=== PATIENT | female | born 1965 | race Caucasian/White ===

== ENCOUNTER 2022-08-10 09:24 | Emergency (ER) | payer OTHER, SELFPAY ==
[2022-08-10 09:33] VITALS: BP 135/89; PULSE 115; RESP 18; TEMP 36.3; O2SAT 95; BMI 38.4
--- NOTE | 2022-08-10 09:44 | CRLHL7_ITS ---
For Patients: As a result of the Century Cures Act, medical imaging exams and procedure reports are released immediately into your electronic medical record. You may view this report before your referring provider. If you have questions, please contact your health care provider. INDICATION: Pain COMPARISON: August 11, 2021 TECHNIQUE: CT examination of the abdomen and pelvis was performed without intravenous contrast. Thin section axial images were obtained from the lung bases through the pubic symphysis. Oral contrast was not administered. Please note that all CT scans at this facility use dose modulation, iterative reconstruction, and/or weight-based dosing when appropriate to reduce radiation dose to as low as reasonably achievable. FINDINGS: LUNG BASES: The lung bases as visualized appear normal.Heart size normal. The lung bases. Small hiatal hernia LIVER/BILIARY SYSTEM:The liver is normal in size and configuration given the lack of intravenous contrast. There is no visible focal mass and there is no intra- or extra hepatic biliary ductal dilatation.The gallbladder surgically absent ADRENALS: Normal non-contrast appearance KIDNEYS, URETERS and BLADDER:The kidneys are normal in size. There are numerous intrarenal calculi in the 1-4 millimeter range. A right upper pole renal cyst is noted measuring 2 centimeters. The pattern of renal calcifications is probably related to medullary sponge kidney. A calculus is noted at the left ureteropelvic junction. This measures 8 millimeters in greatest dimension as measured from number 48. However, there is no upstream dilation. No calcifications within the course either ureter distally or within the bladder. SPLEEN:Normal non-contrast appearance. PANCREAS: Normal non-contrast appearance. RETROPERITONEUM and MESENTERY: There is no mass, adenopathy or aortic aneurysm. GASTROINTESTINAL SYSTEM: There is no evidence of diverticulitis, colitis, mechanical obstruction, or appendicitis. The small bowel as visualized appears normal. PELVIS: No mass, adenopathy or free fluid. OSSEOUS STRUCTURES and ABDOMINAL WALL: Loss of height of the inferior endplate L2. This is new since 2020 but does not appear to be acute. No significant abdominal wall abnormality.No significant abdominal wall defect. OTHER: No free fluid or free air. IMPRESSION: 1. Numerous intrarenal calculi bilaterally. The pattern suggests medullary sponge kidney. Incidental right renal cyst. 2. There is a millimeter calculus at the left ureteropelvic junction. However, there is no upstream dilation. 3. Other incidental nonacute appearing findings as above Please note that all CT scans at this facility use dose modulation, iterative reconstruction, and/or weight-based dosing when appropriate to reduce radiation dose to as low as reasonably achievable. Dictated by Corky Villaseñor MD @ 08/10/2022 10:17:03 AM (Electronically Signed)
--- NOTE | 2022-08-10 09:47 | ED_ITS ---
HPI - General Adult General Time Seen by Provider: 09:48 Date Seen: 08/10/22 Chief complaint: Flank Pain Stated complaint: Blood in urine, suspected kidney stone Time Seen by Provider: 08/10/22 09:42 Source: patient Mode of arrival: ambulatory Limitations: no limitations History of Present Illness HPI narrative: 57-year-old female who presents today with flank pain and hematuria. History of bilateral ureteral stones and stents placed in the past. Has had intermittent hematuria and intermittent low abdominal and flank pain for the last month. Last episode of gross hematuria noted by patient was yesterday morning. Occasional nausea. Not currently having low abdominal or flank pain. Denies fevers or chills. Has not recently taken any medication for her symptoms, has occasionally been taking Advil. Related Data Home Medications Medication Instructions Recorded Confirmed levothyroxine 200 mcg tablet 200 mcg PO DAILY 08/10/22 08/10/22 (Euthyrox) metoprolol succinate 100 mg 100 mg PO DAILY 08/10/22 08/10/22 tablet,extended release 24 hr tizanidine 6 mg capsule 6 mg PRN muscle spasticity 08/10/22 trazodone 100 mg tablet 100 mg BID 08/10/22 Previous Rx's Medication Instructions Recorded cefdinir 300 mg capsule 300 mg PO BID #14 caps 08/10/22 Allergies Allergy/AdvReac Type Severity Reaction Status Date / Time No Known Drug Allergies Allergy Verified 08/10/22 09:38 Review of Systems Status of ROS: Reports: 10 or more systems reviewed and unremarkable except as noted in History and below PFSH PFSH Medical History (Updated 08/10/22 @ 10:38 by Bhanu Lu MD) Hypertension Kidney stone Migraines Pancreatitis Surgical History (Updated 08/10/22 @ 10:21 by Juliette Lockett RN) H/O: hysterectomy History of cholecystectomy Social History Smoking Status: Never smoker How often do you have a drink containing alcohol: 2-3 times a week AUDIT-C Alcohol total score: 3 Non-prescribed substance use: denies use Exam Narrative: Exam Narrative: General: Well-developed and well-nourished, no acute distress Head: Atraumatic and normocephalic Eyes: Pupils are equal reactive, extraocular motions intact, conjunctiva clear ENT: External nose and ears are normal, posterior pharynx without erythema or exudate Neck: No midline cervical tenderness, full spontaneous range of motion the neck, trachea midline, no adenopathy Heart: Tachycardic but regular Lungs: Clear to auscultation bilaterally without wheezes or crackles Abdomen: Soft, nontender, nondistended with active bowel sounds Musculoskeletal: No tenderness, deformity, or edema Neurologic: Awake, alert, and oriented x3, no gross focal neurologic deficits, cranial nerves intact as tested Psych: Mood and affect are appropriate Skin: No rashes Const: Vital Signs, click to edit/add: Vital Signs - 24 hr 08/10/22 09:33 Temperature 97.3 F L Pulse Rate [Right Pulse Oximeter] 115 H Respiratory Rate 18 Blood Pressure [Ri ght Upper Arm] 135/89 Pulse Oximetry 95 Oxygen Delivery Me thod Room Air Course Course Hospital Course: Patient seen and examined, prior records are reviewed. Differential diagnosis includes but not limited to ureteral stone, bladder stone, urinary tract infection, bladder tumor, AVM, renal carcinoma. Patient presents with intermittent flank and low abdominal pain as well as intermittent hematuria for the last month. On exam, patient is tachycardic but no other symptoms. CT scan personally reviewed and interpreted by me demonstrates a proximal ureteral stone on the left. Urinalysis and labs are pending. Toradol and Zofran were ordered but this patient is not currently having pain, will hold these for now. Reevaluation(s) Reevaluation #1: CT scan does demonstrate numerous bilateral intrarenal calculi, along with an 8 mm calculus at the left UPJ without associated dilatation or hydronephrosis. Urinalysis with 5-10 white blood cells, few bacteria. Patient does have some symptoms that could be consistent with urinary tract infection but her sensation of frequency could be from hematuria as well. Given findings on urinalysis, patient will be started on Omnicef for possible urinary tract infection. She is not reporting any flank pain although CT demonstrates a large stone at the UPJ. This may be causing a ball-valve effect given her intermittent pain and intermittent hematuria. She has urologist who she has seen in the past and she should follow up with that group. Otherwise, stable for discharge. Basic panel is reassuring with normal creatinine. On review of result, no CBC was ordered. Patient has had hematuria and has tachycardia today. She does not appear pale and is not having any chest pain, shortness of breath, or lightheadedness concerning for anemia, but add-on hemoglobin is ordered. Will be watched in the emergency department until this is resulted Time: 10:34 Reevaluation #2: Hemoglobin is normal, patient is stable for discharge. Time: 11:11 Vital Signs Vital signs: Initial Vital Signs Temperature 97.3 F L 08/10/22 09:33 Temperature Source Temporal Artery Scan 08/10/22 09:33 Pulse Rate 115 H 08/10/22 09:33 Respiratory Rate 18 08/10/22 09:33 Blood Pressure 135/89 08/10/22 09:33 Blood Pressure Mean 104 08/10/22 09:33 Blood Pressure Position Sitting 08/10/22 09:33 Pulse Oximetry 95 08/10/22 09:33 Oxygen Delivery Method 08/10/22 09:33 Vital Signs Temperature 97.3 F L 08/10/22 09:33 Pulse Rate 115 H 08/10/22 09:33 Respiratory Rate 18 08/10/22 09:33 Blood Pressure 135/89 08/10/22 09:33 Pulse Oximetry 95 08/10/22 09:33 Oxygen Delivery Method 08/10/22 09:33 Temperature 97.3 F L 08/10/22 09:33 Pulse Rate 115 H 08/10/22 09:33 Respiratory Rate 18 08/10/22 09:33 Blood Pressure 135/89 08/10/22 09:33 Pulse Oximetry 95 08/10/22 09:33 Oxygen Delivery Method 08/10/22 09:33 Medical Decision Making Medical Records Medical records reviewed: Yes I reviewed the patient's medical records Lab Data Lab results reviewed: Yes I reviewed the patient's lab results Labs: Lab Results 08/10/22 08/10/22 08/10/22 Range/Units 09:44 09:59 09:59 Hgb 15.2 (12.0-16.0) gm/dL Sodium 138 (135-149) mmol/L Potassium 3.9 (3.6-5.1) mmol/L Chloride 103 (96-114) mmol/L Carbon Dioxide 25 (20-32) mmol/L BUN 18 (7-30) mg/dL Creatinine 0.8 (0.5-1.5) mg/dL Estimated Creat Clear 73.63 Estimated GFR 85 ml/min Glucose 108 (60-115) mg/dL Calcium 9.3 (8.4-10.6) mg/dL C-Reactive Protein < 0.5 L (0.5-1.0) mg/dL Urine Color Yellow (Yellow) Urine Appearance Clear (Clear) Urine pH 6.0 (5.0-8.5) Ur Specific [place] >= 1.030 (1.000-1.030) Urine Protein Trace A (Negative) Urine Glucose (UA) Negative (Negative) Urine Ketones Negative (Negative) Urine Blood Negative (Negative) Urine Nitrite Negative (Negative) Urine Bilirubin Negative (Negative) Urine Urobilinogen 0.2 (0.2-1.0) Ur Leukocyte Esterase Negative (Negative) Urine RBC 0-2 (0-2) Urine WBC 5-10 A (0-5) Ur Squamous Epith Cells Few (None-Few) Amorphous Sediment Few A (None) Urine Bacteria Few A (None) Urine Mucus Moderate A (None) Imaging Data CT scan - abdomen: Attestation: I have reviewed the pertinent imaging results. My impression: Right UPJ stone, bilateral intrarenal calculi Radiologist's impression: 1. Numerous intrarenal calculi bilaterally. The pattern suggests medullary sponge kidney. Incidental right renal cyst. 2. There is a millimeter calculus at the left ureteropelvic junction. However, there is no upstream dilation. 3. Other incidental nonacute appearing findings as above Discharge Plan Discharge Clinical Impression: Urinary tract infection, Bilateral renal stones Condition: Stable Instructions: Kidney Stones (ED), Urinary Tract Infection in Women (DC) Additional Instructions: Continue your usual fluid intake. Call your urologist for follow-up. Take antibiotics as prescribed. Activity Level: No Restrictions Discharge Diet: Regular Prescriptions: New cefdinir 300 mg capsule 300 mg PO BID Qty: 14 0RF No Action metoprolol succinate 100 mg tablet extended release 24 hr 100 mg PO DAILY Label Comments: TAKE 1 TABLET BY MOUTH EVERY DAY tizanidine 6 mg capsule 6 mg PRN (Reason: muscle spasticity) Label Comments: TAKE 1 CAPSULE (6 MG) BY MOUTH EVERY 8 HOURS IF NEEDED FOR MUSCLE SPASM. trazodone 100 mg tablet 100 mg BID Label Comments: TAKE 1 TABLET BY MOUTH TWICE A DAY levothyroxine [Euthyrox] 200 mcg tablet 200 mcg PO DAILY Stand Alone Forms: [facility] Info Instructions
[2022-08-10 10:10] LABS: Appearance Urine Clear (Clear); Bilirubin Urine Negative (Negative); Blood Urine Negative (Negative); Color Urine Yellow (Yellow); Glucose Urine Negative (Negative); Ketones Urine Negative (Negative); Leukocyte Esterase Urine Negative (Negative); Nitrite Urine Negative (Negative); Protein Urine Trace (Negative); Specific Gravity Urine >= 1.030 (1.000-1.030); Urobilinogen Urine 0.2 (0.2-1.0)
[2022-08-10] MEDS: KETOROLAC 15 MG/ML inj IVP (10:11)
[2022-08-10 10:23] LABS: Chloride* 103 mmol/L (96-114)
[2022-08-10 10:24] LABS: Potassium* 3.9 mmol/L (3.6-5.1); Sodium* 138 mmol/L (135-149)
[2022-08-10 10:26] LABS: Creatinine* 0.8 mg/dL (0.5-1.5); Est. Creatinine Clearance* 73.63; Estimated Glomerular Filt Rate 85 ml/min
[2022-08-10 10:27] LABS: Blood Urea Nitrogen* 18 mg/dL (7-30); Carbon Dioxide* 25 mmol/L (20-32); Glucose* 108 mg/dL (60-115)
[2022-08-10 10:28] LABS: Calcium* 9.3 mg/dL (8.4-10.6)
[2022-08-10] MEDS: 0.9 % SODIUM CHLORIDE 1000 ml 1,000 ML IV (10:28)
[2022-08-10] MEDS: ONDANSETRON 2 MG/ML inj 4 MG IVP (10:29)
[2022-08-10 10:30] LABS: C Reactive Protein* < 0.5 mg/dL (0.5-1.0)
[2022-08-10 10:31] LABS: Bacteria Urine Few; RBC Urine 0-2 (0-2); Squamous Epithelial Cell Urine Few (None-Few)
[2022-08-10 10:32] LABS: Amorphous Sediment Urine Few; Mucus Urine Moderate
--- OUTSIDE RECORDS SUMMARY | 2022-08-10 10:53 | XMS_ITS | Encounter Summary ---
:1965 Author Organization [place] Address [address] [place] [address] Care Team Providers Name Role Phone Bhanu Godoy MD Primary Care Provider Bhanu Godoy MD Unavailable Reason for Visit Reason Comments Medication Refill traZODone (DESYREL) 50 MG ta blet Encounter Details Date Type Department Care Team Description 05/31/2019 Refill [facility] Bhanu Godoy MD Medication Refill [place] [id number] [place] [address] (traZODone (DESYREL) 50 [address] [place], [place] MG tablet) [place] [phone] Social History Tobacco Use Types Packs/Day Years Used Date Smoking Tobacco: Never Smokeless Tobacco: Never Alcohol Use Standard Drinks/Week Comments Yes 0 (1 standard drink = 0.6 oz pure alcoho l) not very often Alcohol Habits Answer Date Recorded How often do you have a drink containing alcohol? Monthly or less 12/08/2018 How many drinks containing alcohol do you have on a Not aske d typical day when you are drinking? How often do you have six or more drinks on one Not asked occasion? Sex Assigned at Date Recorded Not on file documented as of this encounter Miscellaneous Notes Telephone Encounter - Reena Remy RN - 05/31/2019 11:24 AM CDT Pending Prescriptions: Disp Refills traZODone (DESYREL) 50 MG tablet [Pharmac*30 tab*1 Sig: TAKE 1 TABLET (50 MG) BY MOUTH AT BEDTIME Prescription approved per [facility] Refill Protocol. Reena Remy, RN, BSN Telephone Encounter - eBl Schuler - 05/31/2019 10:35 AM CDT Requested Prescriptions Pending Prescriptions Disp Refills ??? traZODone (DESYREL) 50 MG tablet [Pharmacy Med Name: TRAZODONE 50 MG TABLET] 30 tablet 1 Sig: TAKE 1 TABLET (50 MG) BY MOUTH AT BEDTIME Last Written Prescription Date: 04/14/19 Last Fill Quantity: 30 tablet, # refills: 1 Last office visit: 02/23/2019 with prescribing provider: Walt Future Office Visit: Serotonin Modulators Passed - 05/31/2019 9:36 AM Passed - Recent (12 mo) or future (30 days) visit within the authorizing provider's specialty Patient had office visit in the last 12 months or has a visit in the next 30 days with authorizing provider or within the authorizing provider's specialty. See Patient Info tab in inbasket, or Choose Columns in Meds & Orders section of the refill encounter. Passed - Medication is active on med list Passed - Patient is age 18 or older Passed - No active on record Passed - No positive test in past 12 months documented in this encounter Plan of Treatment Not on filedocumented as of this encounter Visit Diagnoses Diagnosis Primary insomnia Persistent disorder of initiating or ana ntaining sleep documented in this encounter Additional Health Concerns Assessment Noted Time PHQ-9 Depression Total Score: 15 11/15/2018 3:49 PM CS T documented as of this encounter Care Teams Restoration Silversmith Relationship Specialty Start Date End Date Bhanu Godoy MD PCP - General Family Practice 12/21/18 01/01/20 [address] [place] [address] Bhanu Godoy MD Assigned PCP 10/20/18 02/28/22 [address] [place] [address] documented as of this encounter
--- OUTSIDE RECORDS SUMMARY | 2022-08-10 10:53 | XMS_ITS | Encounter Summary ---
:1965 Author Organization [place] Address [address] [place] [address] Care Team Providers Name Role Phone Bhanu Godoy MD Unavailable Jeremie Perkins DO Primary Care Provider Encounter Details Date Type Department Care Team Description 01/02/2020 Travel Social History Tobacco Use Types Packs/Day Years [...] on file documented as of this encounter Plan of Treatment Not on filedocumented as of this encounter Visit Diagnoses Not on filedocumented in this encounter Additional Health Concerns Assessment Noted Time PHQ-9 Depression Total Score: 15 11/15/2018 3:49 PM CS T documented as of this encounter Care Teams Shower Doors And Panels Fabricator Relationship Specialty Start Date End Date Jeremie Perkins DO PCP - General Family Practice 01/02/20 [facility] [address] [place] [phone] Bhanu Godoy MD Assigned PCP 10/20/18 02/28/22 [address] [place] [address] documented as of this encounter
--- OUTSIDE RECORDS SUMMARY | 2022-08-10 10:53 | XMS_ITS | Encounter Summary ---
:1965 Author Organization [place] Address [address] [place] [address]. 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 documented as of this encounter Last Filed Vital Signs Vital Sign Reading Time Taken Comments Blood Pressure - - Pulse - - Temperature - - Respiratory Rate - - Oxygen Saturation - - Inhaled Oxygen Concentration - - Weight 113.4 kg (250 lb) 01/03/2020 4:14 PM CDT Height 170.2 cm (5' 7) 01/03/2020 4:14 PM CDT Body Mass Index 39.16 01/03/2020 4:14 PM CDT documented in this encounter Plan of Treatment Not on filedocumented as of this encounter Visit Diagnoses Not on filedocumented in this encounter Additional Health Concerns Assessment Noted Time PHQ-9 Depression Total Score: 15 11/15/2018 3:49 PM CS T documented as of this encounter Care Teams Alternative Dispute Resolution Mediator Relationship Specialty Start Date End Date Jeremie Perkins DO PCP - General Family Practice 01/02/20 [facility] [address] [place] [phone] Bhanu Godoy MD Assigned PCP 10/20/18 02/28/22 [address] [place] [address] Adams Dove Assigned Rheumatology 08/16/20 09/07/20 MD Jake Provider [facility] [address] [place] [address] documented as of this encounter
--- OUTSIDE RECORDS SUMMARY | 2022-08-10 10:53 | XMS_ITS | Encounter Summary ---
:1965 Author Organization [place] Address [address] [place] [address]. [place] [address] Care Team Providers Name Role Phone Bhanu Godoy MD Primary Care Provider Bhanu Godoy MD Unavailable Reason for Visit Reason Comments Medication Refill Encounter Details Date Type Department Care Team Description 04/14/[address] [facility] Bhanu Godoy MD Medication Refill [address] [address] [place] [address] [phone] Social History Tobacco Use Types Packs/Day Years [...] this encounter Miscellaneous Notes Telephone Encounter - Priti Teran RN - 04/14/2019 2:57 PM CDT Prescription approved per [facility] [place] Refill Protocol. Telephone Encounter - Antonella Vuong - 04/14/2019 2:21 PM CDT Requested Prescriptions Pending Prescriptions Disp Refills ??? traZODone (DESYREL) 50 MG tablet [Pharmacy Med Name: TRAZODONE 50 MG TABLET] 30 tablet 1 Sig: TAKE 1 TABLET (50 MG) BY MOUTH AT BEDTIME Serotonin Modulators Passed - 04/14/2019 8:35 AM Passed - Recent (12 mo) or [...] documented as of this encounter Care Teams Parking Lot Attendant And Cashier Relationship Specialty Start Date End Date Bhanu Godoy MD PCP - General Family Practice 12/21/18 01/01/20 [address] [place], [place] [id number] Bhanu Godoy MD Assigned PCP 10/20/18 02/28/22 [address] [place], [place] [id number] documented as of this encounter
--- OUTSIDE RECORDS SUMMARY | 2022-08-10 10:53 | XMS_ITS | Encounter Summary ---
:1965 Author Organization [place] Address [address] [place] [address]. [place] [address] Care Team Providers Name Role Phone Bhanu Godoy MD Primary Care Provider Bhanu Godoy MD Unavailable Reason for Visit Reason Onset Date Comments Panel Management 08/29/2019 Pap , Encounter Details Date Type Department Care Team Description 08/29/2019 Telephone [facility] Bhanu Godoy MD Panel Management (Pap , Clinic [address] [phone] Social History Tobacco Use Types Packs/Day Years [...] this encounter Miscellaneous Notes Telephone Encounter - Lilian Mark CMA - 08/30/2019 11:56 AM CST Patient called back and I gave the message below. Patient state that she wont be coming back to see Dr. Godoy anymore so don't call her for Panel. Lilian Mark CMA S MARKER Telephone Encounter - Libby Foreman MA - 08/29/2019 2:44 PM CST Panel Management Review Patient has the following on her problem list: Depression / Dysthymia review Measure: Needs PHQ-9 score of 4 or less during index window. Administer PHQ-9 and if score is 5 or more, send encounter to provider for next steps. 5 - 7 month window range: PHQ-9 SCORE 11/15/2018 PHQ-9 Total Score 15 If PHQ-9 recheck is 5 or more, route to provider for next steps. Patient is due for: PHQ9 Hypertension Last three blood pressure readings: BP Readings from Last 3 Encounters: 02/23/19 (!) 132/92 02/09/19 114/78 12/28/18 126/82 Blood pressure: FAILED HTN Guidelines: Less than 140/90 Composite cancer screening Chart review shows that this patient is due/due soon for the following Pap Smear and Mammogram Summary: Patient is due/failing the following: MAMMOGRAM, PAP and PHQ9 Action needed: Patient needs office visit for Pap., Patient needs to do PHQ9. and Patient needs referral/order: Mammo Type of outreach: Phone, left message for patient to call back. Questions for provider review: None Libby Foreman [facility] Chart routed to Care Team [id number] . S MARKER documented in this encounter Plan of Treatment Not on filedocumented as of this encounter Visit Diagnoses Not on filedocumented in this encounter Additional Health Concerns Assessment Noted Time PHQ-9 Depression Total Score: 15 11/15/2018 3:49 PM CS T documented as of this encounter Care Teams Director Of Ne[facility] Relationship Specialty Start Date End Date Bhanu Godoy MD PCP - General Family Practice 12/21/18 01/01/20 [address] [place] [address] Bhanu Godoy MD Assigned PCP 10/20/18 02/28/22 [address] [place] [address] documented as of this encounter
--- OUTSIDE RECORDS SUMMARY | 2022-08-10 10:53 | XMS_ITS | Encounter Summary ---
:1965 Author Organization [place] Address [address] [place] [address]. [place] [address] Care Team Providers Name Role Phone Bhanu Godoy MD Primary Care Provider Bhanu Godoy MD Unavailable Reason for Visit Reason Comments Medication Refill Encounter Details Date Type Department Care Team Description 05/08/2019 Refill [facility] Bhanu Godoy MD Medication Refill [address] [address] [place] [address] [phone] Social History Tobacco Use Types Packs/Day Years [...] Telephone Encounter - Reena Remy RN - 05/09/2019 7:55 AM CDT Pending Prescriptions: Disp Refills traZODone (DESYREL) 50 MG tablet [Pharmac*30 tab*1 Sig: TAKE 1 TABLET (50 MG) BY MOUTH AT BEDTIME Sent 04/14/2019 with 2 month supply. Refill not appropriate at this time. Reena Remy, RN, BSN documented in this encounter Plan of Treatment Not on filedocumented as of this encounter Visit Diagnoses Diagnosis Primary insomnia Persistent disorder of initiating or ana ntaining sleep documented in this encounter Additional Health Concerns Assessment Noted Time PHQ-9 Depression Total Score: 15 11/15/2018 3:49 PM CS T documented as of this encounter Care Teams Linoleum Layer Relationship Specialty Start Date End Date Bhanu Godoy MD PCP - General Family Practice 12/21/18 01/01/20 [address] [place], [place] [phone] Bhanu Godoy MD Assigned PCP 10/20/18 02/28/22 [address] [place], [place] [id number] documented as of this encounter
--- OUTSIDE RECORDS SUMMARY | 2022-08-10 10:53 | XMS_ITS | Encounter Summary ---
:1965 Author Organization [place] Address [address] [place] [address] Care Team Providers Name Role Phone Bhanu Godoy MD Unavailable Vidal Perkinsrt Madhav PAZ Primary Care Provider Adams Dove MD Unavailable Encounter Details Date Type Department Care Team Description 01/03/2020 Anesthesia - [facility] OR MD Greg [address] [place] [phone] Social History Tobacco Use Types Packs/Day Years [...] with No / Unsure 12/17/2020 11:04 AM MAGNETIZER someone who was confirmed or suspected to have Coronavirus / COVID-19? documented as of this encounter OR Notes Anesthesia Postprocedure Evaluation - Jus Cuevas - 01/03/2020 7:06 PM CDT Patient: Mariia Culver Procedure(s): Cystoscopy, Bilateral Retrograde Pyelogram, Bilateral Ureteroscopy, Bilateral Ureteral Stent Placement (Bilateral) Anesthesia type: general Patient location: PACU Last vitals: Vitals Value Taken Time BP 151/65 01/03/2020 7:00 PM Temp 37.4 ??C (99.3 ??F) 01/03/2020 6:09 PM Pulse 93 01/03/2020 7:01 PM Resp 12 01/03/2020 7:00 PM SpO2 95 % 01/03/2020 7:01 PM Vitals shown include unvalidated device data. Post vital signs: stable Level of consciousness: awake and responds to simple questions Post-anesthesia pain: pain controlled Post-anesthesia nausea and vomiting: no Pulmonary: unassisted, return to baseline Cardiovascular: stable and blood pressure at baseline Hydration: adequate Anesthetic events: no QCDR Measures: ASA# 11 - Sonya-op Cardiac Arrest: ASA11B - Patient did NOT experience unanticipated cardiac arrest ASA# 12 - Sonya-op Mortality Rate: ASA12B - Patient did NOT ASA# 13 - PACU Re-Intubation Rate: ASA13B - Patient did NOT require a new airway mgmt ASA# 10 - Composite Anes Safety: ASA10A - No serious adverse event Additional Notes: Anesthesia Preprocedure Evaluation - Daryl Barnhart MD - 01/03/2020 4:40 PM CDT Anesthesia Evaluation Patient summary reviewed History of anesthetic complications Airway Mallampati: II Neck ROM: full Pulmonary - negative ROS and normal exam Cardiovascular - normal exam Exercise tolerance: > or = 4 METS (+) hypertension, , (-) angina Neuro/Psych Endo/Other (+) hypothyroidism, GI/Hepatic/Renal (-) GERD Other findings: Migraines. H/o cervical fusion (3 levels?). BMI 39. Had cardiac evaluation for what was thought to be non-sustained VT, only found ST. Nephrolithiasis. Dental - normal exam Anesthesia Plan Planned anesthetic: general LMA ASA 3 Induction: intravenous Anesthetic plan and risks discussed with: patient Anesthesia plan special considerations: antiemetics, Post-op plan: routine recovery documented in this encounter Miscellaneous Notes Anesthesia Care Transfer Note - Florentin Ferguson APRN CRNA - 01/03/2020 6:11 PM CDT Last vitals: Vitals: 01/03/20 1809 BP: (!) 168/99 Pulse: (!) 106 Resp: 20 Temp: 37.4 ??C (99.3 ??F) SpO2: 100% Patient's level of consciousness is drowsy Spontaneous respirations: yes Maintains airway independently: yes Dentition unchanged: yes Oropharynx: oropharynx clear of all foreign objects QCDR Measures: ASA# 20 - Surgical Safety Checklist: WHO surgical safety checklist completed prior to induction PQRS# 430 - Adult PONV Prevention: 4558F - Pt received => 2 anti-emetic agents (different classes) preop & intraop ASA# 8 - Peds PONV Prevention: NA - Not pediatric patient, not GA or 2 or more risk factors NOT present PQRS# 424 - Sonya-op Temp Management: 4559F - At least one body temp DOCUMENTED => 35.5C or 95.9F within required timeframe PQRS# 426 - PACU Transfer Protocol:G9655 - Transfer of care checklist used ASA# 14 - Acute Post-op Pain: ASA14B - Patient did NOT experience pain >= 7 out of 10 documented in this encounter Plan of Treatment Not on filedocumented as of this encounter Visit Diagnoses Not on filedocumented in this encounter Additional Health Concerns Assessment Noted Time PHQ-9 Depression Total Score: 15 11/15/2018 3:49 PM CS T documented as of this encounter Care Teams Die Barber Relationship Specialty Start Date End Date Jeremie Perkins DO PCP - General Family Practice 01/02/20 [facility] [address] [place] [phone] Bhanu Godoy MD Assigned PCP 10/20/18 02/28/22 [address] [place] [address] Adams Dove Assigned Rheumatology 08/16/20 09/07/20 MD Jake Provider [facility] [address] [place] [address] documented as of this encounter
--- OUTSIDE RECORDS SUMMARY | 2022-08-10 10:53 | XMS_ITS | Encounter Summary ---
:1965 Author Organization [place] Address [address] [facility] [place] [address] Care Team Providers Name Role Phone Bhanu Godoy MD Primary Care Provider Bhanu Godoy MD Unavailable Reason for Visit Reason Comments Medication Refill venlafaxine 150 MG Encounter Details Date Type Department Care Team Description 05/16/2019 Refill [facility] Bhanu Godoy MD Medication Refill [facility] [id number] [place] [address] (venlafaxine 150 MG) [id number] [place] [phone] Social History Tobacco Use Types Packs/Day Years [...] this encounter Miscellaneous Notes Telephone Encounter - Juliette Phillips Dayanna - 05/16/2019 12:39 PM CDT Medication is being filled for 1 time refill only due to due for an appointment. [employer] message sent. María Phillips, MSN, RN, PHN Telephone Encounter - Elsie Garcia - 05/16/2019 12:28 PM CDT Last Written Prescription Date: 02/23/19 Last Fill Quantity: 30 each, # refills: 1 Last office visit: 02/23/2019 with prescribing provider: Walt Future Office Visit: [facility] Follow-up to PHQ 11/15/2018 PHQ-9 9. Suicide Ideation past 2 weeks Several days Requested Prescriptions Pending Prescriptions Disp Refills ??? venlafaxine (EFFEXOR-ER) 150 MG 24 hr tablet [Pharmacy Med Name: VENLAFAXINE HCL ER 150 MG TAB] 30 tablet 1 Sig: TAKE 1 TABLET BY MOUTH EVERY DAY Serotonin-Norepinephrine Reuptake Inhibitors Failed - 05/16/2019 11:31 AM Failed - Blood pressure under 140/90 in past 12 months BP Readings from Last 3 Encounters: 02/23/19 (!) 132/92 02/09/19 114/78 12/28/18 126/82 Failed - PHQ-9 score of less than 5 in past 6 months Please review last PHQ-9 score. Passed - Medication is active on med list Passed - Patient is age 18 or older Passed - No active on record Passed - Normal serum creatinine on file in past 12 months Recent Labs Lab Test 11/27/18 1551 CR 0.93 Passed - No positive test in past 12 months Passed - Recent (6 mo) or future (30 days) visit within the authorizing provider's specialty Patient had office visit in the last 6 months or has a visit in the next 30 days with authorizing provider or within the authorizing provider's specialty. See Patient Info tab in inbasket, or Choose Columns in Meds & Orders section of the refill encounter. documented in this encounter Plan of Treatment Not on filedocumented as of this encounter Visit Diagnoses Diagnosis Migraine without status migrainosus, not intractable, unspecified migraine type Mild major depression (H) Major depressive disorder, single episod e, mild Anxiety Anxiety state, unspecified documented in this encounter Additional Health Concerns Assessment Noted Time PHQ-9 Depression Total Score: 15 11/15/2018 3:49 PM CS T documented as of this encounter Care Teams [employer] Relationship Specialty Start Date End Date Bhanu Godoy MD PCP - General Family Practice 12/21/18 01/01/20 [id number] [place], [place] [phone] Bhanu Godoy MD Assigned PCP 10/20/18 02/28/22 [address] [place], [place] [phone] documented as of this encounter
--- OUTSIDE RECORDS SUMMARY | 2022-08-10 10:53 | XMS_ITS | Encounter Summary ---
:1965 Author Organization [facility] Address [address] [place] [id number] Care Team Providers Name Role Phone Bhanu Godoy MD Unavailable Jeremie Perkins DO Primary Care Provider Reason for Visit Reason Comments Flank Pain Encounter Details Date Type Department Care Team Description 01/02/2020 Emergency [facility] Tita Rooney ureteral calculi; [facility] Emergency Dep juan f Renae PA-C Renal colic; [address] [facility] Fatty liver; [place], [place] [employer] Renal cyst, right [phone] [phone] [place], [place] [address] (Wo rk) Social History Tobacco Use Types Packs/Day Years [...] on file documented as of this encounter Last Filed Vital Signs Vital Sign Reading Time Taken Comments Blood Pressure 163/122 01/02/2020 9:59 AM CDT Pulse - - Temperature 36.7 ??C (98 ??F) 01/02/2020 9:59 AM CDT Respiratory Rate 18 01/02/2020 9:59 AM CDT Oxygen Saturation 96% 01/02/2020 9:59 AM CDT Inhaled Oxygen Concentration - - Weight - - Height - - Body Mass Index - - documented in this encounter Discharge Instructions Discharge InstructionsTita Dietz PA-C - 01/02/2020 12:15 PM CDT *You may resume diet and activities. Drink plenty of fluids. *Take medications as prescribed. Ibuprofen and/or tylenol for pain. Oxycodone for severe pain not relieved by ibuprofen/tylenol. Flomax. Zofran for nausea. Continue your current medications. *Follow-up with your doctor or urology as directed. *Return if you develop fever, are unable to urinate, cannot keep fluids down, or become worse in anyway. Discharge Instructions Kidney Stones Kidney stones are a common problem that can cause a lot of pain but fortunately are usually not dangerous and can be generally treated with medicine at home. However, sometimes your condition may be worse than it seemed at first, or may get worse with time. You need to follow-up with your regular doctor within 3 days. Most kidney stones will pass on their own, but occasionally stones may need to be removed by an urologist. We will send you home with a urine strainer. Be sure to urinate into this, or urinate into a container and pour the urine through the fine filter to catch the kidney stone as it comes out. The stone will seem like a pebble or grain of sand. Be sure to save this in a zip-lock bag and take it to the doctor???s office with you. Return to the Emergency Department if: Your pain is not controlled. You are vomiting and can???t keep fluids or medications down. You develop fever (>101) You feel much more ill or develop new symptoms What can I do to help myself? Be sure to drink plenty of fluids Staying active is good, and may help the stone to pass. You may do whatever you feel up to doing without restrictions. Treatment: Non-steroidal anti-inflammatory drugs (NSAIDs). This includes prescription medicines like Toradol ??and non-prescription medicines like ibuprofen (Advil??, Nuprin ??). These pain relievers are very effective for kidney stones. Narcotic pain pills. If you have been given a narcotic (such as codeine, hydrocodone, or oxycodone) do not drive for four hours after you have taken it. If the narcotic contains acetaminophen (Tylenol), do not take Tylenol with it. All narcotics will cause constipation, so eat a high fiber diet. Nausea medication. Nausea and vomiting are common with kidney stones, so your physician may send youhome with medicine for this. Flomax (Tamsulosin). This medicine is sometimes used for men with prostate problems, but also can help kidney stones to pass. This medicine can lower blood pressure, and you may feel faint, especially when you first stand up. Be sure to get up gradually, sit down if you feel faint, and avoid activity where feeling faint would be dangerous, such as climbing ladders. Remember that you can always come back to the Emergency Department if you are not able to see your regular doctor in the amount of time listed above, if you get any new symptoms, or if there is anything that worries you. Opioid Medication Information You have been given a prescription for an opioid (narcotic) pain medicine and/or have received a pain medicine while here in the Emergency Department. These medicines can make you drowsy or impaired. You must not drive, operate dangerous equipment, or engage in any other dangerous activities while taking these medications. If you drive while taking these medications, you could be arrested for DUI, ordriving under the influence. Do not drink any alcohol while you are taking these medications. Opioid pain medications can cause addiction. If you have a history of chemical dependency of any type, you are at a higher risk of becoming addicted to pain medications. Only take these prescribed medications to treat your pain when all other options have been tried. Take it for as short a time and asfew doses as possible. Store your pain pills in a secure place, as they are frequently stolen and provide a dangerous opportunity for children or visitors in your house to start abusing these powerful medications. We will not replace any lost or stolen medicine. As soon as your pain is better, you should flush all your remaining medication. Many prescription pain medications contain Tylenol?? (acetaminophen), including Vicodin??, Tylenol #3??, [place]??, Lortab??, and Percocet??. You should not take any extra pills of Tylenol?? if you are using these prescription medications or you can get very sick. Do not ever take more than 4000 mg of acetaminophen in any 24 hour period. All opioids tend to cause constipation. Drink plenty of water and eat foods that have a lot of fiber, such as fruits, vegetables, prune juice, apple juice and high fiber cereal. Take a laxative if you don???t move your bowels at least every other day. Miralax??, Milk of Magnesia, Colace??, or Senna?? can be used to keep you regular. documented in this encounter Medications at Time of Discharge Medication Sig Dispensed Refills Start Date End Date acetaminophen-caffeine Take 2 tablets 0 (EXCEDRIN TENSION HEADACHE) by mouth 500-65 MG TABS kpyrxdv-[id number]-zizgac Take 2 tablets 0 ne (EXCEDRIN MIGRAINE) by mouth every 8 250-250-65 MG per tablet hours as needed DULoxetine (CYMBALTA) 30 MG Take 1 capsule 10 capsule 0 11/2018 capsuleIndications: Mild (30 mg) by mouth major depression (H), daily Until gone Anxiety GABAPENTIN PO Take 600 mg by 0 mouth 3 times daily hydrochlorothiazide TAKE 1 TABLET BY 10 10/05/2018 (HYDRODIURIL) 25 MG tablet MOUTH DAILY NEEDED FOR LEG SWELLING hydrOXYzine (ATARAX) 50 MG Take 50 mg by 0 tablet mouth 3 times daily as needed for itching ibuprofen (ADVIL/MOTRIN) 600 Take 1 tablet 30 tablet 1 12/23 MG tablet (600 mg) by mouth every 6 hours as needed for moderate pain levothyroxine Take 200 mcg by 0 (SYNTHROID/LEVOTHROID) 200 mouth daily MCG tablet meloxicam (MOBIC) 15 MG Take 15 mg by 0 tablet mouth daily metoprolol succinate ER Take 100 mg by 3 10/07/20 18 (TOPROL-XL) 100 MG 24 hr mouth daily tablet oxyCODONE (ROXICODONE) 5 MG Take 1 tablet (5 12 tablet 0 tablet mg) by mouth every 6 hours as needed for pain traZODone (DESYREL) 50 MG TAKE 1 TABLET 30 tablet 1 08/07/2 019 tabletIndications: Primary (50 MG) BY MOUTH insomnia AT BEDTIME venlafaxine (EFFEXOR-ER) 150 TAKE 1 TABLET BY 30 tablet 1 0 07/17/2019 MG 24 hr tabletIndications: MOUTH EVERY DAY Migraine without status migrainosus, not intractable, unspecified migraine type, Mild major depression (H), Anxiety venlafaxine (EFFEXOR-XR) SIG 1 every day 21 capsule 1 2018 37.5 MG 24 hr X 7 days then 2 capsuleIndications: Migraine every day X 7 without status migrainosus, days then switch not intractable, unspecified migraine type, Mild major depression (H), Anxiety VITAMIN D, CHOLECALCIFEROL, Take 2,000 Units 0 PO by mouth daily. zolpidem (AMBIEN) 5 MG Take 1 tablet (5 30 tablet 0 019 tabletIndications: Insomnia, mg) by mouth unspecified type nightly as needed for sleep ondansetron (ZOFRAN ODT) 4 Take 1 tablet (4 10 tablet 0 07/202001/05/2020 MG ODT tab mg) by mouth every 8 hours as needed for nausea tamsulosin (FLOMAX) 0.4 MG Take 1 capsule 10 capsule 0 01/0101/12/2020 capsule (0.4 mg) by mouth daily for 10 doses documented as of this encounter ED Notes Romeo Ferrer RN - 01/02/2020 9:58 AM CDT Pt arrives with R flank/ groin pain since Wed. Pt was seen at [facility] on Wednesday, had UA which was negative for infection. Pt states not getting better so here for re-evaluation. +nausea, no vomiting. Tita Dietz PA-C - 01/02/2020 9:53 AM CDT History Chief Complaint: Flank Pain HPI Alphonso Culver is a 54 year old female with a history of nephrolithiasis, pancreatitis, hypertension, among others who presents for evaluation of right flank pain, associated with dysuria, hematuria,and urinary urgency, that began 6 days ago. The patient states about 6 days ago she began having right flank pain, which radiated into her back and groin. She also endorses dysuria, hematuria, and urinary urgency, prompting her presentation to [facility], where she was told she did not have an infection and believed her symptoms could be due to kidney stones. They recommended following up with her primary to order a CT, who did not want to order a CT and subsequently prompted her presentation for further evaluation. Here, the patient states she has a history of kidney stones and knows she has more in her kidneys. She also endorses a low-grade fever and nausea. She denies any other symptoms prompting her presentation. Allergies: No known drug allergies Medications: Duloxetine Gabapentin Hydrochlorothiazide Atarax Levothyroxine Mobic Trazodone Metoprolol succinate Venlafaxine Vitamin D Ambien Past Medical History: Anxiety Hypertension Hypothyroidism Migraine Depression Morbid obesity Narcotic withdrawal Nephrolithiasis Pancreatitis Shoulder impingement syndrome Past Surgical History: Cholecystectomy Hysterectomy Cervical spine fusion Family History: Father - CAD, lung fibrosis, cerebrovascular disease, Pacemaker Sister - Pacemaker, diabetes Brother - Diabetes Social History: The patient was unaccompanied to the ED. Smoking Status: Never Smokeless Tobacco: Never Alcohol Use: Yes Drug Use: No Marital Status: Review of Systems Constitutional: Positive for fever (low-grade). Gastrointestinal: Positive for nausea. Genitourinary: Positive for dysuria, flank pain, hematuria and urgency. Musculoskeletal: Positive for back pain. All other systems reviewed and are negative. Physical Exam Patient Vitals for the past 24 hrs: BP Temp Temp src Heart Rate Resp SpO2 01/02/20 0959 (!) 163/122 98 ??F (36.7 ??C) Temporal 128 18 96 % Physical Exam General: Alert, interactive. GCS 15 Head: Scalp is atraumatic. Eyes: EOM intact. The pupils are equal, round, and reactive to light. No scleral icterus. ENT: Ears: The external ears are normal. Nose: The external nose is normal. Throat: The oropharynx is normal. Mucus membranes are moist. Neck: Normal range of motion. There is no rigidity. CV: Regular rate and rhythm. No murmur. 2+ radial pulses Resp: Breath sounds are clear bilaterally. Non-labored, no retractions or accessory muscle use. GI: Abdomen is soft, no distension, no tenderness. Right CVA tenderness. MS: Normal range of motion. Skin: Warm and dry. Neuro: Strength and sensation grossly intact. Psych: Awake. Alert. Appropriate interactions. Emergency Department Course Imaging: Radiology findings were communicated with the patient who voiced understanding of the findings. Abd/pelvis CT no contrast - Stone Protocol IMPRESSION: 1. Bilateral UVJ stones each measuring 0.3 cm. No significant associated hydronephrosis or hydroureter. Numerous additional nonobstructing right and left renal collecting system stones are noted. 2. Fatty infiltration of liver and cholecystectomy changes. Probable right renal cortical cysts unchanged dating back to prior MRI from 06/21/2013. No further follow-up required. Reading per radiology. Laboratory: Laboratory findings were communicated with the patient who voiced understanding of the findings. CBC: AWNL (WBC 6.0, HGB 14.9, PLT 340) BMP: Glucose 161 (H) o/w WNL (Creatinine 0.75) Routine UA with Microscopic: Urine blood Trace (A), WBC/HPF 6 (H), Mucous urine Present (A) o/w WNL Urine Culture: Pending Interventions: 1002 Advil 600 mg PO 1128 0.9% NaCl bolus 1000 mL IV 1128 Dilaudid 0.5 mg IV 1129 Zofran 4 mg IV Emergency Department Course: Past medical records, nursing notes, and vitals reviewed. The patient was sent for a Abd/pelvis CT no contrast - Stone Protocol while in the emergency department, results above. IV was inserted and blood was drawn for laboratory testing, results above. (1116) I performed an exam of the patient as documented above. History obtained from patient. (1209) I rechecked the patient and discussed results and plan of care. She reports her pain is improving. Findings and plan explained to the Patient. Patient discharged home with instructions regarding supportive care, medications, and reasons to return. The importance of close follow-up was reviewed. The patient was prescribed Zofran, Advil, Roxicodone, and Flomax. I personally reviewed the laboratory and imaging results with the Patient and answered all related questions prior to discharge. Impression & Plan Medical Decision Making: The patient presented with right sided flan pain and abdominal pain consistent with renal colic. CT reveals bilateral 3mm UVJ stones. Pain is controlled with interventions in the Emergency Department. There is no fever, leukocytosis, or evidence of a urinary tract infection. Urine culture pending. No BRIANNA. Patient be discharged with ibuprofen and oxycodone to use for breakthrough pain. Side effects ofnarcotic medications were discussed including sedation and addictive properties. Flomax will be prescribed daily to attempt to ease stone passage. Zofran for nausea. Other etiologies for these symptomssuch as AAA, pyelonephritis, muscular strain, appendicitis, amongst others are considered and have been excluded. The patient was told to return if if increasing pain not controlled with pain meds, vomiting, fever, or inability to urinate. Follow up with urology closely given bilateral stone. Plan to call today to schedule follow-up. Patient agrees with this plan and understands reasons to return. All questions and concerns addressed prior to discharge home. Diagnosis: ICD-10-CM 1. Bilateral ureteral calculi N20.1 3mm 2. Renal colic N23 3. Fatty liver K76.0 4. Renal cyst, right N28.1 unchanged, no further workup indicated Disposition: Discharged to home. Discharge Medications: Medication List Started ibuprofen 600 MG tablet Commonly known as: ADVIL/MOTRIN 600 mg, Oral, EVERY 6 HOURS PRN ondansetron 4 MG ODT tab Commonly known as: Zofran ODT 4 mg, Oral, EVERY 8 HOURS PRN oxyCODONE 5 MG tablet Commonly known as: ROXICODONE 5 mg, Oral, EVERY 6 HOURS PRN tamsulosin 0.4 MG capsule Commonly known as: Flomax 0.4 mg, Oral, DAILY Scribe Disclosure: Rudy Perez, am serving as a scribe at 11:13 AM on 01/02/2020 to document services personally performed by Tita Dietz PA-C based on my observations and the provider's statements to me. 01/02/2020 [facility] EMERGENCY DEPARTMENT Tita Dietz PA-C 01/02/20 9977 documented in this encounter Miscellaneous Notes Result Encounter Note - Clinton Trimble RN - 01/02/2020 12:37 PM CDT Emergency Dept/Urgent Care discharge antibiotic (if prescribed): None No changes in treatment per Urine culture protocol. Result Encounter Note - Clinton Trimble RN - 01/02/2020 12:37 PM CDT Final urine culture report is NEGATIVE per [facility] Lab Result protocol. If NEGATIVE result, no change in treatment, per [facility] ED Lab Result protocol. documented in this encounter Plan of Treatment Not on filedocumented as of this encounter Procedures Procedure Name Priority Date/Time Associated Comments Diagnosis CT ABDOMEN PELVIS W/O STAT 01/02/2020 11:55 Re sults for this CONTRAST AM CDT procedure are i n the results section. CBC WITH PLATELETS & STAT 01/02/2020 10:24 Res ults for this DIFFERENTIAL AM CDT procedure are i n the results section. BASIC METABOLIC PANEL STAT 01/02/2020 10:24 Re sults for this AM CDT procedure are i n the results section. ROUTINE UA WITH STAT 01/02/2020 10:08 Results for this MICROSCOPIC AM CDT procedure are i n the results section. URINE CULTURE Routine 01/02/2020 10:08 Bilateral ureteral Resu lts for this AM CDT calculi procedure are i n the results section. documented in this encounter Results Abd/pelvis CT no contrast - Stone Protocol (01/02/2020 11:55 AM CDT) Anatomical Region Laterality Modality Abdomen/Pelvis, SUBRAD CT BODY, UMP CT ABDOMEN PELVIS, Computed Tomography RAD CT Specimen (Source) Anatomical Location Collection Method / Collectio n Time Received Time / Laterality Volume Impressions 01/02/2020 12:08 PM CDT IMPRESSION: 1. Bilateral UVJ stones each measuring 0 .3 cm. No significant associated hydronephrosis or hydroureter . Numerous additional nonobstructing right and left renal farhan ecting system stones are noted. 2. Fatty infiltration of liver and becka cystectomy changes. Probable right renal cortical cysts unchanged chance ing back to prior MRI from 06/21/2013. No further follow-up required . AZRA JACOB MD Narrative 01/02/2020 12:[address] ABDOMEN AND PELVIS WITHOUT CONTRAST 01/02/2020 11:55 AM HISTORY: Flank pain, recurrent stone dis ease suspected - right. COMPARISON: CT abdomen and pelvis 11/27/19. TECHNIQUE: Axial images are obtained fro m the lung bases to the symphysis without oral or IV contrast. ? ?Coronal reformatted images are also generated. ??Radiation dose for thi s scan was reduced using automated exposure control, adjustment o f the mA and/or kV according to patient size, or iterative reconstruc tion technique. FINDINGS: ??Scattered groundglass nodula rity is noted at the lung bases probably an infectious or inflammatory p rocess. This represents a change from the prior CT. No pleural flu id is evident. Abdomen: There is diffuse fatty infiltra tion of liver and cholecystectomy changes. The spleen, andersen creas and adrenal glands are unremarkable. No enlarged lymph nodes. A nathalia is normal in caliber with minimal scattered calcified plaque. The kidneys bilaterally demonstrate numerous small nonobstructin g stones. No hydronephrosis. Distal right ureteral stone near the UVJ on image 189 of series 4 measures 0.3 cm. A left UVJ stone is als o noted on image 193 measuring 0.3 cm. Probable right renal cortical cy sts incompletely imaged on this noncontrast exam. Pelvis: The bladder is unremarkable. No intraluminal bladder calculi or wall thickening. No enlarged pelvic l ymph nodes or free fluid. Rectum is unremarkable. Uterus is not id entified. Bone window examination is unremarkable. Procedure Note Azra Jacob MD - 01/02/2020Form atting of this note might be different from the original. CT ABDOMEN AND PELVIS WITHOUT CONTRAST 11:55 AM HISTORY: Flank pain, recurrent stone dis ease suspected - right. COMPARISON: CT abdomen and pelvis 11/27/19. TECHNIQUE: Axial images are obtained fro m the lung bases to the symphysis without oral or IV contrast. C oronal reformatted images are also generated. Radiation dose for this scan was reduced using automated exposure control, adjustment o f the mA and/or kV according to patient size, or iterative reconstruc tion technique. FINDINGS: Scattered groundglass nodulari ty is noted at the lung bases probably an infectious or inflammatory p rocess. This represents a change from the prior CT. No pleural flu id is evident. Abdomen: There is diffuse fatty infiltra tion of liver and cholecystectomy changes. The spleen, andersen creas and adrenal glands are unremarkable. No enlarged lymph nodes. A nathalia is normal in caliber with minimal scattered calcified plaque. The kidneys bilaterally demonstrate numerous small nonobstructin g stones. No hydronephrosis. Distal right ureteral stone near the UVJ on image 189 of series 4 measures 0.3 cm. A left UVJ stone is als o noted on image 193 measuring 0.3 cm. Probable right renal cortical cy sts incompletely imaged on this noncontrast exam. Pelvis: The bladder is unremarkable. No intraluminal bladder calculi or wall thickening. No enlarged pelvic l ymph nodes or free fluid. Rectum is unremarkable. Uterus is not id entified. Bone window examination is unremarkable. IMPRESSION: 1. Bilateral UVJ stones each measuring 0 .3 cm. No significant associated hydronephrosis or hydroureter . Numerous additional nonobstructing right and left renal farhan ecting system stones are noted. 2. Fatty infiltration of liver and becka cystectomy changes. Probable right renal cortical cysts unchanged chance ing back to prior MRI from 06/21/2013. No further follow-up required . AZRA JACOB MD Tita Rooney PA-C IMG CT ORDERABLES (ABNORMAL) Basic metabolic panel (01/02/2020 10:24 AM T) athologist Signature Sodium 137 133 - 144 01/02/2020 [place] mmol/L 10:48 AM [facility] Potassium 3.8 3.4 - 5.3 01/02/2020 [place] mmol/L 10:48 AM [facility] Chloride 106 94 - 109 01/02/2020 [place] mmol/L 10:48 AM [facility] Carbon Dioxide 25 20 - 32 01/02/2020 [place] mmol/L 11:01 AM [facility] Anion Gap 6 3 - 14 01/02/2020 [place] mmol/L 11:01 AM [facility] Glucose 161 (H) 70 - 99 01/02/2020 [place] mg/dL 11:01 AM [facility] Urea Nitrogen 14 7 - 30 01/02/2020 [place] mg/dL 11:01 AM [facility] Creatinine 0.75 0.52 - 01/02/2020 [facility] 1.04 mg/dL 11:01 AM [facility] GFR Estimate 89 >60 01/02/2020 [place] mL/min/{1. 11:01 AM [facility] 73_m2} HOSPITAL Comment: Non GFR Calc Starting 10/11/2018, serum creatinine ba sed estimated GFR (eGFR) will be calculated using the Chronic Kidney Dise [facility] Epidemiology Collaboration (CKD-EPI) equation. GFR Estimate If >90 >60 mL/min/{1.73_m2} 01/02/2020 11 :01 AM [facility] Comment: GFR Calc Starting 10/11/2018, serum creatinine ba sed estimated GFR (eGFR) will be calculated using the Chronic Kidney Dise [facility] Epidemiology Collaboration (CKD-EPI) equation. Calcium 9.1 8.5 - 10.1 mg/dL 01/02/2020 11:01 AM [facility] Specimen Anatomical Collection Method Collection Time Receive d Time (Source) Location / / Volume Laterality Blood specimen 01/02/2020 10:24 0 (specimen) AM CDT 10:28 AM CDT Tita Rooney PA-C LAB - BLOOD ORDERABLES Performing Organization Address City/State/ZIP Code Phon e Number [place] [address] [address] [place] [address] [phone] CBC with platelets differential (01/02/2020 10:24 AM CDT) [facility] Method Time Signature WBC 6.0 4.0 - 01/02/2020 [place] 11.0 10:34 AM [facility] 10e9/L [facility] RBC Count 4.65 3.8 - 5.2 01/02/2020 [place] 10e12/L 10:34 AM [facility] Hemoglobin 14.9 11.7 - 01/02/[address] [facility] 15.7 g/dL 10:34 AM [facility] Hematocrit 45.0 35.0 - 01/02/2020 [place] 47.0 % 10:34 AM [facility] MCV 97 78 - 100 01/02/2020 [place] fl 10:34 AM [facility] MCH 32.0 26.5 - 01/02/2020 [facility] 33.0 pg 10:34 AM [facility] MCHC 33.1 31.5 - 01/02/2020 [facility] 36.5 g/dL 10:34 AM [facility] RDW 13.2 10.0 - 01/02/2020 [facility] 15.0 % 10:34 AM [facility] Platelet Count 340 150 - 450 01/02/2020 [facility] 10e9/L 10:34 AM [facility] Diff Method Automated 01/02/2020 [facility] Method 10:34 AM [facility] % Neutrophils 42.3 % 01/02/2020 [facility] 10:34 AM [facility] % Lymphocytes 37.4 % 01/02/2020 [facility] 10:34 AM [facility] % Monocytes 9.7 % 01/02/2020 [facility] 10:34 AM [facility] % Eosinophils 8.7 % 01/02/2020 [facility] 10:34 AM [facility] % Basophils 1.7 % 01/02/2020 [facility] 10:34 AM [facility] % Immature 0.2 % 01/02/2020 [facility] Granulocytes 10:34 AM [facility] Nucleated RBCs 0 0 /100 01/02/2020 [facility] 10:34 AM [facility] Absolute 2.5 1.6 - 8.3 01/02/2020 [facility] Neutrophil 10e9/L 10:34 AM [facility] Absolute 2.2 0.8 - 5.3 01/02/2020 [facility] Lymphocytes 10e9/L 10:34 AM [facility] Absolute 0.6 0.0 - 1.3 01/02/2020 [facility] Monocytes 10e9/L 10:34 AM [facility] Absolute 0.5 0.0 - 0.7 01/02/2020 [facility] Eosinophils 10e9/L 10:34 AM [facility] Absolute 0.1 0.0 - 0.2 01/02/2020 [facility] Basophils 10e9/L 10:34 AM [facility] Abs Immature 0.0 0 - 0.4 01/02/2020 [facility] Granulocytes 10e9/L 10:34 AM [facility] Absolute 0.0 01/02/2020 [facility] Nucleated RBC 10:34 AM [facility] Specimen Anatomical Collection Method Collection Time Receive d Time (Source) Location / / Volume Laterality Blood specimen 01/02/2020 10:24 0 (specimen) AM CDT 10:28 AM CDT Tita Rooney PA-C LAB - BLOOD ORDERABLES Performing Organization Address City/[facility]/[place]IP [facility] [place] [address] [address] [place], [place] [address] [facility] [address] [phone] Urine Culture (01/02/2020 10:08 AM CDT) Component Value Ref Test Analysis Performed At [facility] Range Method Time Signature Specimen Midstream Urine INFECTIOUS Description [facility] Special Specimen received 01/02/2020 INFECTIOUS Requests in preservative 1:00 PM CDT [facility] Culture Micro <10,000 colonies/mL 01/03/2020 INFEC TIOUS mixed urogenital kacey 12:28 PM DISEASE S Susceptibility testing not routinely done CDT DIAGNOSTIC LABORATORY Specimen (Source) Anatomical Collection Method Collection Time Re ceived Time Location / / Volume Laterality Examination of 01/02/2020 10:08 0 midstream urine AM CDT 11:24 AM CDT specimen (procedure) Tita Rooney PA-C LAB - MICRO GENERAL ORDERAB LES Performing Organization Address City/[facility]/[place]IP [facility] [place] INFECTIOUS DISEASES [address] [place] [address] DIAGNOSTIC LABORATORY, [facility] INFECTIOUS DISEASES [address] [place] [address], [place] DIAGNOSTIC LABORATORY (ABNORMAL) Routine UA with microscopic (01/02/2020 10:08 AM CDT) [facility] Method Time Signature Color Urine Yellow 01/02/2020 [facility] 10:46 AM [facility] Appearance Urine Clear 01/02/2020 [facility] 10:46 AM [facility] Glucose Urine Negative NEG^Negat 01/02/2020 [facility] brandie mg/dL 10:46 AM [facility] Bilirubin Urine Negative NEG^Negat 01/02/2020 [facility] brandie 10:46 AM [facility] Ketones Urine Negative NEG^Negat 01/02/2020 [facility] brandie mg/dL 10:46 AM [facility] Specific [place] 1.021 1.003 - 01/02/2020 [facility] Urine 1.035 10:46 AM [facility] Blood Urine Trace (A) NEG^Negat 01/02/2020 [facility] brandie 10:46 AM [facility] pH Urine 5.5 5.0 - 7.0 01/02/2020 [facility] pH 10:46 AM [facility] Protein Albumin Negative NEG^Negat 01/02/2020 [facility] Urine brandie mg/dL 10:46 AM [facility] Urobilinogen Normal 0.0 - 2.0 01/02/2020 [facility] mg/dL mg/dL 10:46 AM [facility] Nitrite Urine Negative NEG^Negat 01/02/2020 [facility] brandie 10:46 AM [facility] Leukocyte Negative NEG^Negat 01/02/2020 [facility] Esterase Urine brandie 10:46 AM [facility] Source Midstream 01/02/2020 [facility] Urine 10:08 AM [facility] WBC Urine 6 (H) 0 - 5 01/02/2020 [facility] /HPF 10:46 AM [facility] RBC Urine 1 0 - 2 01/02/2020 [facility] /HPF 10:46 AM [facility] Mucous Urine Present (A) NEG^Negat 01/02/2020 [facility] brandie /LPF 10:46 AM [facility] Specimen (Source) Anatomical Collection Method Collection Time Re ceived Time Location / / Volume Laterality Examination of 01/02/2020 10:08 0 midstream urine AM CDT 10:17 AM T specimen (procedure) Tita Rooney PA-C LAB - URINE ORDERABLES Performing Organization Address City/State/ZIP Code Phon e Number [place] [address] [place] [address] [facility] [address] [place] [address] [phone] documented in this encounter Visit Diagnoses Diagnosis Bilateral ureteral calculi Renal colic Fatty liver Other chronic nonalcoholic liver disease Renal cyst, 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 Administer each 2mg over 2-5 minutes. ibuprofen (ADVIL/MOTRIN) tablet 600 mg Given 01/02/2020 10:02 AM CDT 600 mg 600 mg, Oral, ONCE, On 01/02/20 at 1001, For 1 dose, If adequate dose of acetaminophen (TYLENOL) taken within the last 3 hours and patient still in pain ondansetron (ZOFRAN) injection 4 mg Given 01/02/2020 11:29 AM CDT 4 mg 4 mg, Intravenous, ONCE, Administer over 2-5 Minutes, On 01/02/20 at 1123, For 1 dose, Irritant. For ordered IV doses 0.1-4 mg, give IV Push undiluted over 2-5 minutes. documented in this encounter Active and Recently Administered Medications Due to Daylight Saving Time, this section may contain times in both GM and CDT. Scheduled Medication Order 12/31/2019 01/01/2020 01/02/2020 0.9% sodium chloride BOLUS (COMPLETED) 1128 (New Bag - Provider: Aida Lim RN)1223 (Stopped - Provider: Aida Lim RN) Intravenous, 1,000 mL, ONCE, at 1,000 mL /hr, Administer over 1 Hours, 01/02/20 at 1123, For 1 dose HYDROmorphone (PF) (DILAUDID) injection 0.5 mg (COMPLETED) 1128 (Given - Provider: Aida Lim RN) 0.5 mg, Intravenous, ONCE, 1 dose, Tue at 1123, For ordered IV doses 0.1-4 mg give IV Push undiluted. Administer each 2mg over 2-5 minutes. ibuprofen (ADVIL/MOTRIN) tablet 600 mg (COMPLETED) 1002 (Given - Provider: Romeo Ferrer RN) 600 mg, Oral, ONCE, 01/02/20 at 1001, For 1 dose, If adequate dose of acetaminophen (TYLENOL) taken within the last 3 hours and patient still in pain ondansetron (ZOFRAN) injection 4 mg (COMPLETED) 1129 (Given - Provider: Aida Lim RN) 4 mg, Intravenous, ONCE, Administer over 2-5 Minutes, 01/02/20 at 1123, For 1 dose, Irritant. For ordered IV doses 0.1-4 mg, give IV Push undiluted over 2-5 minutes. documented in this encounter Additional Health Concerns Assessment Noted Time PHQ-9 Depression Total Score: 15 11/15/2018 3:49 PM CS T documented as of this encounter Care Teams Aesthetician Relationship Specialty Start Date End Date Jeremie Perkins DO PCP - General Family Practice 01/02/20 [facility] [address] [place] [id number] Bhanu Godoy MD Assigned PCP 10/20/18 02/28/22 [address] [place], [place] [id number] documented as of this encounter
--- OUTSIDE RECORDS SUMMARY | 2022-08-10 10:53 | XMS_ITS | Encounter Summary ---
:1965 Author Organization [place] Address [address] [place] [address] Care Team Providers Name Role Phone Bhanu Godoy MD Primary Care Provider Bhanu Godoy MD Unavailable Reason for Visit Reason Onset Date Comments Medication Refill venlafaxine (EFFEXOR -ER) 150 MG 24 hr tablet Refill Request 08/30/2019 Encounter Details Date Type Department Care Team Description 07/16/2019 Refill [facility] Bhanu Godoy MD Medication Refill [place] [id number] [place] [address] (venlafaxine [address] [place], [place] (EFFEXOR-ER) 150 MG [address] [place] [address] hr tablet); Refill [id number] Request [phone] Social History Tobacco Use Types Packs/Day Years [...] this encounter Miscellaneous Notes Telephone Encounter - Hayley Beckman RN - 07/19/2019 8:08 AM CDT Appointment letter sent Hyaley Beckman RN, BSN Message handled by Nurse Triage. Telephone Encounter - Bhanu Godoy MD - 07/17/2019 4:06 PM CDT Sent Needs visit August Bhanu Godoy MD Telephone Encounter - Deisy Montalvo RN - 07/17/2019 3:53 PM CDT Routing refill request to provider for review/approval because: PHQ-9 score not less than 5 in past 6 months Deisy Monatlvo RN Telephone Encounter - Dana Connolly - 07/16/2019 10:34 AM CDT Requested Prescriptions Pending Prescriptions Disp Refills ??? venlafaxine (EFFEXOR-ER) 150 MG 24 hr tablet [Pharmacy Med Name: VENLAFAXINE HCL ER 150 MG TAB] 30 tablet 1 Sig: TAKE 1 TABLET BY MOUTH EVERY DAY Serotonin-Norepinephrine Reuptake Inhibitors Failed - 07/16/2019 8:32 AM Failed - Blood pressure under 140/90 [...] & Orders section of the refill encounter. Last Written Prescription Date: 05/16/2019 Last Fill Quantity: 30, # refills: 1 Last office visit: 02/23/2019 with prescribing provider: Dr Godoy Future Office Visit: documented in this encounter Plan of Treatment [...] documented as of this encounter Care Teams Imcu Specialist Relationship Specialty Start Date End Date Bhanu Godoy MD PCP - General Family Practice 12/21/18 01/01/20 [address] [place], [place] [id number] Bhanu Godoy MD Assigned PCP 10/20/18 02/28/22 [address] [place], [place] [id number] documented as of this encounter
--- OUTSIDE RECORDS SUMMARY | 2022-08-10 10:53 | XMS_ITS | Encounter Summary ---
:1965 Author Organization [facility] Address [address] [place] [address]. [place] [address] Care Team Providers Name Role Phone Cedric Godoy MD Unavailable Jeremie Perkins DO Primary Care Provider Reason for Visit Reason Comments Chest Pain Encounter Details Date Type Department Care Team Description 12/17/2020 Emergency [facility] Ghislaine Osorio MD Left-sided chest pain; [facility] Emergency Dep t [facility] Grief reaction [address] [place], [place] [address] [facility] [id number] [place], [place] [id number] [phone] (Wo rk) Social History Tobacco Use Types [...] with No / Unsure 12/17/2020 11:04 AM EVENT MANAGEMENT CONSULTANT someone who was confirmed or suspected to have Coronavirus / COVID-19? documented as of this encounter Last Filed Vital Signs Vital Sign Reading Time Taken Comments Blood Pressure 117/55 12/17/2020 12:00 PM EVENT MANAGEMENT CONSULTANT Pulse 107 12/17/2020 12:00 PM EVENT MANAGEMENT CONSULTANT Temperature 36.4 ??C (97.6 ??F) 12/17/2020 11:07 AM EVENT MANAGEMENT CONSULTANT Respiratory Rate 16 12/17/2020 11:07 AM EVENT MANAGEMENT CONSULTANT Oxygen Saturation 95% 12/17/2020 12:00 PM EVENT MANAGEMENT CONSULTANT Inhaled Oxygen Concentration - - Weight - - Height - - Body Mass Index - - documented in this encounter Discharge Instructions Discharge InstructionsGhislaine Osorio MD - 12/17/2020 6:19 PM CST Talk with cardiology about the testing that was previously ordered and never completed. They may want you to do that test or consider a stress test. Cough and chest pain can be related to acid reflux so consider daily antacid like omeprazole (available over the counter). Talk with your primary care provider about ongoing questions with your cough, etc. Return immediately with chest pain that does not resolve, worsening or change in current pain, shortness of breath, fever, or ANY OTHER new or concerning symptoms. Call the customer service number on the back of your insurance card and they can help arrange resources for anxiety and depression. T MANAGEMENT CONSULTANT AttachmentsThe following attachments cannot be sent through Care Everywhere. Chest Pain, Uncertain Cause (Haitian)Grief and Loss (Haitian)documented in this encounter Medications at Time of Discharge Medication Sig Dispensed Refills Start Date End Date acetaminophen-caffeine Take 2 tablets by 0 (EXCEDRIN TENSION HEADACHE) mouth 500-65 MG TABS xtmngmx-drthaxzgludyc-rfwbleb Take 2 tablets by 0 e (EXCEDRIN MIGRAINE) mouth every 8 250-250-65 MG per tablet hours as needed DULoxetine (CYMBALTA) 30 MG Take 1 capsule 10 capsule 0 11/2018 capsuleIndications: Mild (30 mg) by mouth major depression (H), Anxiety daily Until gone GABAPENTIN PO Take 600 mg by 0 [...] traZODone (DESYREL) 50 MG TAKE 1 TABLET (50 30 tablet 1 04/2019 tabletIndications: Primary MG) BY MOUTH AT insomnia BEDTIME venlafaxine (EFFEXOR-ER) 150 TAKE 1 TABLET BY 30 tablet 1 0 07/17/2019 MG 24 hr tabletIndications: MOUTH EVERY DAY Migraine without status migrainosus, not intractable, unspecified migraine type, Mild major depression (H), Anxiety venlafaxine (EFFEXOR-XR) 37.5 SIG 1 every day X 21 capsule 1 02/23/2019 MG 24 hr capsuleIndications: 7 days then 2 Migraine without status every day X 7 migrainosus, not intractable, days then switch unspecified migraine type, Mild major depression (H), Anxiety VITAMIN D, CHOLECALCIFEROL, Take 2,000 Units 0 PO by mouth daily. zolpidem (AMBIEN) 5 MG Take 1 tablet (5 30 tablet 0 019 tabletIndications: Insomnia, mg) by mouth unspecified type nightly as needed for sleep documented as of this encounter ED Notes Korina Villalobos - 12/17/2020 11:19 AM CST Applied monitoring devices (EKG, BP, and pulse ox) onto Patient. Ciarra Cade RN - 12/17/2020 11:06 AM CST Pt here for L sided chest pain that radiates to her back since 1000. No meds taken at home. Reports nausea but no vomiting. A+OX4, no acute signs of distress. T MANAGEMENT CONSULTANT Ghislaine Osorio MD - 12/17/2020 11:03 AM CST History Chief Complaint: Chest Pain The history is provided by the patient. Alphonso Culver is a 55 year old female with history of hypertension who presents with chest pain. She awoke this morning feeling well. She ate breakfast and let out her dog and then around 0930 (two hours prior to arrival) she sat down on her couch and began experiencing chest pain. This is on the left side of her chest and radiates towards her left shoulder and back. She describes her pain as 9-10/10 in intensity. The pain is sharp and worsens with deep breath or movement. She has associated nausea without vomiting. She feels somewhat lightheaded, too. She denies jaw pain, shortness of breath, fever, or diaphoresis. She has a chronic cough which she remarks seems to be more productive in the last 2 days. She took no analgesics prior to arrival. She denies recent travel or surgery. Of note, Alphonso does report recent stress and anxiety related to the COVID pandemic as well as the loss of her sister last year. She requests resources to help her through this tough time. Review of Systems Constitutional: Negative for diaphoresis and fever. Respiratory: Positive for cough (chronic). Negative for shortness of breath. Cardiovascular: Positive for chest pain. Gastrointestinal: Positive for nausea. Negative for vomiting. Musculoskeletal: Positive for back pain. Neurological: Positive for light-headedness. Psychiatric/Behavioral: The patient is nervous/anxious. All other systems reviewed and are negative. Allergies: The patient has no known allergies. Medications: Gabapentin Hydrochlorothiazide Levothyroxine Meloxicam Metoprolol succinate Past Medical History: Ankle impingement syndrome Anxiety Chronic abdominal pain Hypertension Hypothyroidism Migraines Mild major depression Morbid obesity Narcotic withdrawal Nephrolithiasis Pancreatitis Shoulder impingement syndrome Syncope GERD Degeneration of cervical intervertebral disc Angina pectoris Past Surgical History: Cholecystectomy Hysterectomy UGI endoscopy w EUS Cervical spine fusion Cervical diskectomy Cystoscopy, right ureteral stent placement Family History: Coronary artery disease Lung fibrosis Cerebrovascular disease Pacemaker Leukemia Diabetes Sister - idiopathic cardiomyopathy, June 2020 Social History: Unaccompanied to ED. Never smoker. Physical Exam Patient Vitals for the past 24 hrs: BP Temp Temp src Pulse Resp SpO2 12/17/20 1200 117/55 -- -- 107 -- 95 % 12/17/20 1150 124/65 -- -- 90 -- 95 % 12/17/20 1145 113/60 -- -- 97 -- 93 % 12/17/20 1115 (!) 131/91 -- -- -- -- -- 12/17/20 1107 (!) 148/100 97.6 ??F (36.4 ??C) Temporal 106 16 99 % Physical Exam General: Well-developed and well-nourished. Well appearing middle aged womam. Cooperative. Head: Atraumatic. Eyes: Conjunctivae, lids, and sclerae are normal. Neck: Supple. Normal range of motion. CV: Regular rate and rhythm. Normal heart sounds with no murmurs, rubs, or gallops detected. Resp: No respiratory distress. Clear to auscultation bilaterally without decreased breath sounds, wheezing, rales, or rhonchi. GI: Soft. Non-distended. Non-tender. MS: Normal ROM. No bilateral lower extremity edema. Skin: Warm. Non-diaphoretic. No pallor. Neuro: Awake. A&Ox3. Normal strength. Psych: Anxious mood and affect. Normal speech. Vitals reviewed. Emergency Department Course EKG Indication: Chest Pain Time: 1113 Rate 95 bpm. MT interval 138. QRS duration 78. QT/QTc 388/487. Normal sinus rhythm Prolonged QT No acute ST changes. No significant change as compared to prior, dated 12/28/18. Imaging: XR Chest 2 Views Since July 21, 2013, heart size is normal. No pleural effusion, pneumothorax, or abnormal area of consolidation. CEDRIC LEE MD Reading per radiology Laboratory: CBC: WBC 7.5, HGB 14.0, PLT 279 BMP: AWNL (Creatinine 0.71) Troponin (Collected 1337): <0.015 Troponin (Collected 1117): <0.015 D Dimer (Collected 1117): 0.5 Lipase: 36 (L) Hepatic panel: Protein total 6.7 (L) o/w WNL Emergency Department Course: Reviewed: I reviewed nursing notes, vitals, past medical history, and Care Everywhere Assessments: 1114 I obtained history and examined the patient as noted above. Interventions: 1134 Aspirin 324 mg PO 1135 Nitrostat 0.4 mg Sublingual 1156 Nitrostat 0.4 mg Sublingual 1210 Tylenol 975 mg PO 1252 Pepcid 20 mg IV 1252 GI Cocktail 30 mL PO 1252 Toradol 15 mg IV Disposition: The patient was discharged home. HEART Score Background Calculates the overall risk of adverse event in patient's presenting with chest pain. Based on 5 criteria (each assigned 0-2 points) including suspiciousness of history, EKG, age, risk factors and troponin. Data 55 year old female Migraine headache; Chronic abdominal pain; Syncope; Hypertension, unspecified type; Hx of pancreatitis; Mild major depression (H); Morbid obesity (H); Anxiety; and Nephrolithiasis reports that she has never smoked. She has never used smokeless tobacco. family history includes C.A.D. in her father; Cardiomyopathy in her sister; Cerebrovascular Disease in her father; Diabetes in her brother, brother, brother, and sister; Pacemaker (age of onset: 45) inher sister; Pacemaker (age of onset: 75) in her father; Respiratory in her father. Lab Results Component Value Date TROPI <0.015 12/17/2020 Criteria 0-2 points for each of 5 items (maximum of 10 points): Score 0- History slightly suspicious for coronary syndrome Score 0- EKG Normal Score 1- Age 45 to 65 years old Score 1- One to 2 risk factors for atherosclerotic disease Score 0- Within normal limits for troponin levels Interpretation Risk of adverse outcome Heart Score: 2 Total Score 0-3- Adverse Outcome Risk 2.5% - Supports early discharge with appropriate follow-up Impression & Plan Medical Decision Making: Alphonso is a 55-year-old woman who presents with left-sided chest pain radiating towards her left shoulder exacerbated by deep inspiration and by movement. She denies any other complaints aside from slight increase in productivity of her chronic cough over the last couple of days. On exam, she appears well without any focal findings. Her EKG is reassuring without acute ST changes or arrhythmias. It should be noted that QT of 388 today is similar to a QT of 384 in December 2018. No further work-up for this is indicated. Initial troponin is negative. A repeat troponin after 2 hours, 4 hours after onset of pain, remains undetectable. This makes ACS highly unlikely. Basic laboratory studies are noncontributory including negative lipase given her history of pancreatitis with odd presentations per her report. She has no reproducible abdominal tenderness to warrant abdominal imaging. Chest x-ray reveals nopneumonia, pneumothorax, or pleural effusion. D-dimer is negative essentially ruling out pulmonary embolism. An aortic pathology is considered unlikely with a negative D-dimer and a normal, narrow mediastinum on chest x-ray. We tried nitroglycerin for her pain with the initial tablets decreasing from 9/10-7/10 although the subsequent tablet provided no relief. This speaks against coronary artery disease as etiology for herpain. She was given aspirin, Tylenol, Toradol, GI cocktail, and Pepcid. On repeat evaluation she states she is feeling somewhat improved. I have some suspicion this may be GERD as she describes a chronic cough. I encouraged her to try [id number] daily omeprazole. Further, she requests resources for stress and anxiety in dealing with the recent of her sister and the COVID pandemic and we discussed possible somatic manifestation of her stress and anxiety. I referred her to her insurance company to help find appropriate resources for this. She denies current suicidal ideation. She does have a HEART score of 2 and has seen a oil spreader operator in the past. She did not like that provider and wants to see a new oil spreader operator. She told me that she had some tests ordered that she never had completed. As such, instead of ordering a stress test today, I will refer her to cardiology to discuss exactlywhat testing was ordered in the past, what she currently requires, and if that includes stress testing. I also encouraged her to contact her primary care provider to help coordinate follow up, ensure she has appropriate mental health resource, and to discuss her ER visit. She understands to return immediately with worsening or changing chest pain or development of any new symptoms. All questions answered. Amenable to discharge. Diagnosis: ICD-10-CM 1. Left-sided chest pain R07.9 2. Grief reaction F43.21 Discharge Medications: Discharge Medication List as of 12/17/2020 2:57 PM Scribe Disclosure: Juliette Perez, am serving as a scribe at 11:12 AM on 12/17/2020 to document services personally performed by Ghislaine Osorio MD based on my observations and the provider's statements to me. Ghislaine Osorio MD 12/18/20 1629 T MANAGEMENT CONSULTANT documented in this encounter Plan of Treatment Not on filedocumented as of this encounter Procedures Procedure Name Priority Date/Time Associated Comments Diagnosis TROPONIN I STAT 12/17/2020 1:37 PM Results f or this EVENT MANAGEMENT CONSULTANT procedure are i n the results section. XR CHEST 2 VIEWS STAT 12/17/2020 12:40 Results for this PM EVENT MANAGEMENT CONSULTANT procedure are i n the results section. CBC WITH PLATELETS & STAT 12/17/2020 11:17 Res ults for this DIFFERENTIAL AM EVENT MANAGEMENT CONSULTANT procedure are i n the results section. TROPONIN I STAT 12/17/2020 11:17 Results for this AM EVENT MANAGEMENT CONSULTANT procedure are i n the results section. LIPASE Routine 12/17/2020 11:17 Results for this AM EVENT MANAGEMENT CONSULTANT procedure are i n the results section. HEPATIC FUNCTION Routine 12/17/2020 11:17 Results for this PANEL AM EVENT MANAGEMENT CONSULTANT procedure are i n the results section. D DIMER QUANTITATIVE Routine 12/17/2020 11:17 Res ults for this AM EVENT MANAGEMENT CONSULTANT procedure are i n the results section. BASIC METABOLIC PANEL STAT 12/17/2020 11:17 Re sults for this AM EVENT MANAGEMENT CONSULTANT procedure are i n the results section. EKG 12-LEAD, TRACING STAT 12/17/2020 11:13 Res ults for this ONLY AM EVENT MANAGEMENT CONSULTANT procedure are i n the results section. documented in this encounter Results Troponin I (now) (12/17/2020 1:37 PM EVENT MANAGEMENT CONSULTANT) P athologist Signature Troponin I ES <0.015 0.000 - 12/17/2020 [facility] 0.045 ug/L 2:08 PM [facility] Comment: The 99th percentile for upper reference range is 0.045 ug/L. ??Troponin values in the range of 0.045 - 0.120 ug/L may b e associated with risks of adverse clinical events. Specimen Anatomical Collection Method Collection Time Receive d Time (Source) Location / / Volume Laterality Blood specimen 12/17/2020 1:37 PM 021 1:43 (specimen) EVENT MANAGEMENT CONSULTANT PM EVENT MANAGEMENT CONSULTANT Authorizing Provider Result Tanisha Osorio MD LAB - BLOOD ORDERABLES Performing Organization Address City/State/ZIP Code Phon e Number M [facility] [address] [facility] [place], [place] [address] [facility] [address] [place] [place], [place] [address] [facility] [phone] XR Chest 2 Views (12/17/2020 12:40 PM EVENT MANAGEMENT CONSULTANT) Anatomical Region Laterality Modality Chest Digital Radiography Specimen (Source) Anatomical Location Collection Method / Collectio n Time Received Time / Laterality Volume Impressions 12/17/2020 1:04 PM EVENT MANAGEMENT CONSULTANT IMPRESSION: Since July 21, 2013, heart size is normal. No pleural effusion, pneumothorax, or abnormal area of consolidation. CEDRIC LEE MD Narrative 12/17/2020 1:04 PM EVENT MANAGEMENT CONSULTANT CHEST TWO VIEWS December 17, 2020 12:40 PM HISTORY: 55-year-old woman with left-molina ed chest pain. Procedure Note Cedric Lee MD - 12/17/2020 CHEST TWO VIEWS December 17, 2020 12:40 PM HISTORY: 55-year-old woman with left-molina ed chest pain. IMPRESSION: Since July 21, 2013, he art size is normal. No pleural effusion, pneumothorax, or abnormal area of consolidation. CEDRIC LEE MD Ghislaine Osorio MD IMG DIAGNOSTIC IMAGING ORDER EMILEE (ABNORMAL) Lipase (12/17/2020 11:17 AM EVENT MANAGEMENT CONSULTANT) P athologist Signature Lipase 36 (L) 73 - 393 12/17/2020 [place] U/L 11:56 AM EVENT MANAGEMENT CONSULTANT [facility] Specimen Anatomical Collection Method Collection Time Receive d Time (Source) Location / / Volume Laterality 12/17/2020 11:17 12/17/2020 AM EVENT MANAGEMENT CONSULTANT 11:26 AM EVENT MANAGEMENT CONSULTANT Authorizing Provider Result Tanisha Osorio MD LAB - BLOOD ORDERABLES Performing Organization Address City/State/ZIP Code Phon e Number M [facility] [address] [address] [place] [address] [place] [address], [place] [phone] D dimer quantitative (12/17/2020 11:17 AM EVENT MANAGEMENT CONSULTANT) P athologist Signature D Dimer 0.5 0.0 - 0.50 12/17/2020 [facility] ug/ml FEU 11:45 AM [facility] Comment: This D-dimer assay is intended for use i n conjunction with a clinical pretest probability assessment model to exclude pulmonary embolism (PE) and deep venous thrombosis (DVT) in outpatients s uspected of PE or DVT. The cut-off value is 0.5 ug/mL FEU. Specimen Anatomical Collection Method Collection Time Receive d Time (Source) Location / / Volume Laterality 12/17/2020 11:17 12/17/2020 AM EVENT MANAGEMENT CONSULTANT 11:26 AM EVENT MANAGEMENT CONSULTANT Ghislaine Osorio MD LAB - BLOOD ORDERABLES Performing Organization Address City/State/ZIP Code Phon e Number M [place] [address] [address] [place], [place] [address] [phone] [facility] [address] [phone] (ABNORMAL) Hepatic panel (12/17/2020 11:17 AM [facility]) Analysis Performed At Patho logist Time Signature Bilirubin Direct 0.1 0.0 - 0.2 12/17/2020 [place] mg/dL 11:56 AM [facility] Bilirubin Total 0.5 0.2 - 1.3 12/17/2020 [place] mg/dL 11:56 AM [facility] Albumin 3.5 3.4 - 5.0 12/17/2020 [place] g/dL 11:56 AM [facility] Protein Total 6.7 (L) 6.8 - 8.8 12/17/2020 [place] g/dL 11:56 AM [facility] Alkaline 95 40 - 150 12/17/2020 [place] Phosphatase U/L 11:56 AM [facility] ALT 48 0 - 50 U/L 12/17/2020 [place] 11:56 AM [facility] AST 28 0 - 45 U/L 12/17/2020 [facility] 11:56 AM [facility] Specimen Anatomical Collection Method Collection Time Receive d Time (Source) Location / / Volume Laterality 12/17/2020 11:17 12/17/2020 AM EVENT MANAGEMENT CONSULTANT 11:26 AM EVENT MANAGEMENT CONSULTANT Ghislaine Osorio MD LAB - BLOOD ORDERABLES Performing Organization Address City/State/ZIP Code Phon e Number M [facility] [address] [address] [facility] [address] [address], [place] [phone] Basic metabolic panel (BMP) (12/17/2020 11:17 AM EVENT MANAGEMENT CONSULTANT) athologist Signature Sodium 141 133 - 144 12/17/2020 [place] mmol/L 11:47 AM [facility] Potassium 3.4 3.4 - 5.3 12/17/2020 [place] mmol/L 11:47 AM [facility] Chloride 109 94 - 109 12/17/2020 [place] mmol/L 11:47 AM [facility] Carbon Dioxide 26 20 - 32 12/17/2020 [place] mmol/L 11:55 AM [facility] Anion Gap 6 3 - 14 12/17/2020 [place] mmol/L 11:55 AM [facility] Glucose 95 70 - 99 12/17/2020 [place] mg/dL 11:55 AM [facility] Urea Nitrogen 17 7 - 30 12/17/2020 [place] mg/dL 11:55 AM [facility] Creatinine 0.71 0.52 - 12/17/2020 [facility] 1.04 mg/dL 11:55 AM [facility] GFR Estimate >90 >60 12/17/2020 [place] mL/min/{1. 11:55 AM [facility] 73_m2} HOSPITAL Comment: Non GFR Calc Starting 10/11/2018, serum creatinine ba sed estimated GFR (eGFR) will be calculated using the Chronic Kidney Dise ase Epidemiology Collaboration (CKD-EPI) equation. GFR Estimate If >90 >60 mL/min/{1.73_m2} 12/17/2020 11 :55 AM [facility] Comment: GFR Calc Starting 10/11/2018, serum creatinine ba sed estimated GFR (eGFR) will be calculated using the Chronic Kidney Dise ase Epidemiology Collaboration (CKD-EPI) equation. Calcium 8.7 8.5 - 10.1 mg/dL 12/17/2020 11:55 AM [facility] Specimen Anatomical Collection Method Collection Time Receive d Time (Source) Location / / Volume Laterality Blood specimen 12/17/2020 11:17 (specimen) AM EVENT MANAGEMENT CONSULTANT 11:26 AM EVENT MANAGEMENT CONSULTANT Ghislaine Osorio MD LAB - BLOOD ORDERABLES Performing Organization Address City/State/ZIP Code Phon e Number M [facility] [address] [place], [place] [address] [facility] [address] [phone] CBC + differential (12/17/2020 11:17 AM EVENT MANAGEMENT CONSULTANT) [facility] gist Method Time Signature WBC 7.5 4.0 - 12/17/2020 [facility] 11.0 11:33 AM [facility] 10e9/L [facility] RBC Count 4.30 3.8 - 5.2 12/17/2020 [facility] 10e12/L 11:33 AM [facility] Hemoglobin 14.0 11.7 - 12/17/2020 [facility] 15.7 g/dL 11:33 AM [facility] Hematocrit 42.0 35.0 - 12/17/2020 [facility] 47.0 % 11:33 AM [facility] MCV 98 78 - 100 12/17/2020 [facility] fl 11:33 AM [facility] MCH 32.6 26.5 - 12/17/2020 [facility] 33.0 pg 11:33 AM [facility] MCHC 33.3 31.5 - 12/17/2020 [facility] 36.5 g/dL 11:33 AM [facility] RDW 13.2 10.0 - 12/17/2020 [facility] 15.0 % 11:33 AM [facility] Platelet Count 279 150 - 450 12/17/2020 [facility] 10e9/L 11:33 AM [facility] Diff Method Automated 12/17/2020 [facility] Method 11:33 AM [facility]NAG[facility] % Neutrophils 44.6 % 12/17/2020 [facility] 11:33 AM [facility] % Lymphocytes 37.5 % 12/17/2020 [facility] 11:33 AM [facility] % Monocytes 10.2 % 12/17/2020 [facility] 11:33 AM [facility] % Eosinophils 6.1 % 12/17/2020 [facility] 11:33 AM [facility] % Basophils 1.3 % 12/17/2020 [facility] 11:33 AM [facility] % Immature 0.3 % 12/17/2020 [facility] Granulocytes 11:33 AM [facility] Nucleated RBCs 0 0 /100 12/17/2020 [facility] 11:33 AM [facility] Absolute 3.4 1.6 - 8.3 12/17/2020 [facility] Neutrophil 10e9/L 11:33 AM [facility] Absolute 2.8 0.8 - 5.3 12/17/2020 [facility] Lymphocytes 10e9/L 11:33 AM [facility] Absolute 0.8 0.0 - 1.3 12/17/2020 [facility] Monocytes 10e9/L 11:33 AM [facility] Absolute 0.5 0.0 - 0.7 12/17/2020 [facility] Eosinophils 10e9/L 11:33 AM [facility] Absolute 0.1 0.0 - 0.2 12/17/2020 [facility] Basophils 10e9/L 11:33 AM [facility] Abs Immature 0.0 0 - 0.4 12/17/2020 [facility] Granulocytes 10e9/L 11:33 AM [facility] Absolute 0.0 12/17/2020 [facility] Nucleated RBC 11:33 AM [facility] Specimen Anatomical Collection Method Collection Time Receive d Time (Source) Location / / Volume Laterality Blood specimen 12/17/2020 11:17 1 (specimen) AM EVENT MANAGEMENT CONSULTANT 11:26 AM EVENT MANAGEMENT CONSULTANT Ghislaine Osorio MD LAB - BLOOD ORDERABLES Performing Organization Address City/State/ZIP Code Phon e Number M [facility] [address] [address] [facility] [address] [phone] Troponin I (now) (12/17/2020 11:17 AM EVENT MANAGEMENT CONSULTANT) P athologist Signature Troponin I ES <0.015 0.000 - 12/17/2020 [place] 0.045 ug/L 11:59 AM [facility] Comment: The 99th percentile for upper reference range is 0.045 ug/L. ??Troponin values in the range of 0.045 - 0.120 ug/L may b e associated with risks of adverse clinical events. Specimen Anatomical Collection Method Collection Time Receive d Time (Source) Location / / Volume Laterality Blood specimen 12/17/2020 11:17 1 (specimen) AM EVENT MANAGEMENT CONSULTANT 11:26 AM EVENT MANAGEMENT CONSULTANT Ghislaine Osorio MD LAB - BLOOD ORDERABLES Performing Organization Address City/State/ZIP [facility] [address] [address] [place] [address] [facility] [address] [phone] EKG 12-lead, tracing only (12/17/2020 11:13 AM EVENT MANAGEMENT CONSULTANT) Patholo gist Method Time Signature Interpretation ECG Click View RADIOLOGY Image link RESULTS to view waveform and result Specimen (Source) Anatomical Collection Method Collection Time Re ceived Time Location / / Volume Laterality 12/17/2020 11:13 AM EVENT MANAGEMENT CONSULTANT Ghislaine Osorio MD ECG ORDERABLES Performing Organization Address City/State/ZIP [facility] [place] Phon [place] Number RADIOLOGY RESULTS documented in this encounter Visit Diagnoses Diagnosis Left-sided chest pain Grief reaction Adjustment disorder with depressed mood documented in this encounter Administered Medications Inactive Administered Medications - up to 3 most recent administrations Medication Order MAR Action Action Date Dose Rate Site acetaminophen (TYLENOL) tablet Given 12/17/2020 12:10 PM EVENT MANAGEMENT CONSULTANT 975 mg 975 mg 975 mg, Oral, ONCE, On Wed12/17/20 at 1210, For 1 dose, If none in prior 4 hours Maximum acetaminophen dose from all sources = 75 mg/kg/day not to exceed 4 grams/day. aspirin (ASA) chewable tablet 324 mg Given 12/17/2020 11:34 AM EVENT MANAGEMENT CONSULTANT 324 mg 324 mg, Oral, ONCE, On Wed12/17/20 at 1125, For 1 dose famotidine (PEPCID) injection 20 mg Given 12/17/2020 12:52 PM EVENT MANAGEMENT CONSULTANT 20 mg 20 mg, Intravenous, Administer over 2 Minutes, ONCE, On Wed12/17/20 at 1225, For 1 dose, For ordered IV doses 1-20 mg, give IV Push diluted with 5-10ml NS over a minimum of 2 minutes. ketorolac (TORADOL) injection 15 mg Given 12/17/2020 12:52 PM EVENT MANAGEMENT CONSULTANT 15 mg 15 mg, Intravenous, ONCE, Administer over 2 Minutes, On Wed12/17/20 at 1225, For 1 dose, Can cause pain on injection. If ordered intravenously (IV) : administer through a running maintenance fluid over 1 minute followed by a flush. If patient complains of pain on injection, may dilute 15-30 mg in 5 mL and push over 1 to 2 minutes. lidocaine (XYLOCAINE) 2 % 15 mL, alum & mag Given 11/26 12:52 PM EVENT MANAGEMENT CONSULTANT 30 mLs hydroxide-simethicone (MAALOX) 15 mL GI Cocktail 30 mL, Oral, ONCE, On Wed12/17/20 at 1225, For 1 dose nitroGLYcerin (NITROSTAT) sublingual tablet Given 11/26 11:56 AM EVENT MANAGEMENT CONSULTANT 0.4 mg 0.4 mg 0.4 mg, Sublingual, EVERY 5 MIN PRN, chest pain, Starting on Wed12/17/20 at 1123, For 3 doses Given 12/17/2020 11:35 AM EVENT MANAGEMENT CONSULTANT 0.4 mg documented in this encounter Active and Recently Administered Medications Times are shown in EVENT MANAGEMENT CONSULTANT. Scheduled Medication Order 12/15/2020 12/16/2020 12/17/2020 acetaminophen (TYLENOL) tablet 975 mg (COMPLETED) 1210 (Given - Provider: Marybel Escobar RN) 975 mg, Oral, ONCE, Wed12/17/20 at 1210, For 1 dose, If none in prior 4 hours Maximum acetaminophen dose from all sources = 75 mg/kg/day not to exceed 4 grams/day. aspirin (ASA) chewable tablet 324 mg (COMPLETED) 1134 (Given - Provider: Marybel Escobar RN) 324 mg, Oral, ONCE, Wed12/17/20 at 1125, For 1 dose famotidine (PEPCID) injection 20 mg (COMPLETED) 1252 (Given - Provider: Rick Durán RN) 20 mg, Intravenous, Administer over 2 Mi nutes, ONCE, 12/17/20 at 1225, For 1 dose, For ordered IV doses 1-20 mg, give IV Push diluted with 5-10ml NS over a minimum of 2 minutes. ketorolac (TORADOL) injection 15 mg (COMPLETED) 1252 (Given - Provider: Rick Durán RN) 15 mg, Intravenous, ONCE, Administer ove r 2 Minutes, 12/17/20 at 1225, For 1 dose, Can cause pain on injection. If ordered intravenously (IV) : administer through a running maintenance fluid over 1 m inute followed by a flush. If patient co mplains of pain on injection, may dilute 15-30 mg in 5 mL and push over 1 to 2 minutes. lidocaine (XYLOCAINE) 2 % 15 mL, alum & mag hydroxide-simethicone (MAALOX) 15 mL GI Cocktail (COMPLETED) 1252 (Given - Pr ovider: Rick Durán RN) 30 mL, Oral, ONCE, 12/17/20 at 1225, For 1 dose PRN Medication Order 12/15/2020 12/16/2020 12/17/2020 nitroGLYcerin (NITROSTAT) sublingual tablet 0.4 mg 1135 (Given - Provider: Marybel Escobar, RN)1156 (Given - Provider: Marybel Escobar RN) 0.4 mg, Sublingual, EVERY 5 MIN PRN, mariya st pain, Starting e 12/17/20 at 1123, For 3 doses documented in this encounter Additional Health Concerns Assessment Noted Time PHQ-9 Depression Total Score: 15 11/15/2018 3:49 PM CS T documented as of this encounter Care Teams Employment Evaluator/Case Manager Relationship Specialty Start Date End Date Jeremie Perkins DO PCP - General Family Practice 01/02/20 [facility] [address] [place] [phone] Cedric Godoy MD Assigned PCP 10/20/18 02/28/22 [address] [place] [address] documented as of this encounter
--- OUTSIDE RECORDS SUMMARY | 2022-08-10 10:53 | XMS_ITS | Encounter Summary ---
:1965 Author Organization [facility] Address [address] [place] [address]. [place] [address] Care Team Providers Name Role Phone Bhanu Godoy MD Primary Care Provider Bhanu Godoy MD Unavailable Reason for Visit Reason Onset Date Comments Panel Management 10/02/2019 Encounter Details Date Type Department Care Team Description 10/02/2019 Telephone [facility] Bhanu Godoy MD Panel Management [address] [phone] Social History Tobacco Use Types Packs/Day Years [...] this encounter Miscellaneous Notes Telephone Encounter - Libby Foreman MA - 10/02/2019 5:27 PM CST Summary: Patient is due/failing the following: COLONOSCOPY, MAMMOGRAM and PAP Reviewed: [x] CARE EVERYWHERE [x] LAST OV NOTE INCLUDING ENDO [x] FYI TAB [] MYCHART ACTIVE? [x] LAST PANEL ENCOUNTER [x] FUTURE APPTS [x] IMMUNIZATIONS Action needed: Patient needs referral/order: PAP, Mammo and Colonoscopy Type of outreach: Phone, left message for patient to call back. Libby CONDE ON SEED CULLER documented in this encounter Plan of Treatment Not on filedocumented as of this encounter Visit Diagnoses Not on filedocumented in this encounter Additional Health Concerns Assessment Noted Time PHQ-9 Depression Total Score: 15 11/15/2018 3:49 PM CS T documented as of this encounter Care Teams Lead Mechanical Engineer Relationship Specialty Start Date End Date Bhanu Godoy MD PCP - General Family Practice 12/21/18 01/01/20 [address] [place], [place] [id number] Bhanu Godoy MD Assigned PCP 10/20/18 02/28/22 [address] [place], [place] [phone] documented as of this encounter
--- OUTSIDE RECORDS SUMMARY | 2022-08-10 10:53 | XMS_ITS | Encounter Summary ---
:1965 Author Organization [facility] Address [address] [place] [address] Care Team Providers Name Role Phone Bhanu Godoy MD Unavailable Jeremie Perkins DO Primary Care Provider Encounter Details Date Type Department Care Team Description 01/03/2020 Hospital Encounter [facility]. Leonidas Echevarria MD Ureteral stone [facility] [address] [place] [address] [phone] [place], [place] [phone] Social History Tobacco Use Types Packs/Day Years [...] 4:14 PM CDT documented in this encounter Medications at Time of Discharge Medication Sig Dispensed Refills Start Date End Date acetaminophen-caffeine Take 2 tablets 0 (EXCEDRIN TENSION HEADACHE) by mouth 500-65 MG TABS gheocpc-uddoxmvrpvofz-eafiwx Take 2 tablets 0 ne (EXCEDRIN MIGRAINE) [...] MG TAKE 1 TABLET 30 tablet 1 019 tabletIndications: Primary (50 MG) BY MOUTH [...] 10 doses documented as of this encounter H&P Notes Arturo Echevarria MD - 01/03/2020 5:01 PM CDT [facility] Consultation - GENERAL History of Present Illness: This is a 54 y.o. female here for bilateral ureteral stone management. She is a previous patient of Dr. Cutler with h/o kidney/ureteral stones. Previously managed by URS. Pt notes that her stones were in renal parenchyma. Last , she started noting some suprapubic pain along with back pain. Unable to get in with her PCP, she went to urgent care over the weekend and was ultimately seen in theED and diagnosed with bilateral ureteral stones. Pt was referred to Dr. Reis who recommended bilateral URS/stent placement. Discussed with patient and procedure. Pt denies hematuria, dysuria, fevers. Admits to possible chills. OSH imaging reviewed to show very small bilateral stones. Pertinent Labs: Lab Results: personally reviewed UA, CBC, BMP reviewed from ED visit yesterday. All wnl except UA shows blood, neg nitrite. No leukocytosis, no BRIANNA. Past Medical History: Diagnosis Date ??? Angina pectoris (H) ??? Hypertension ??? Pancreatitis ??? Syncope and collapse Past Surgical History: Procedure Laterality Date ??? CHOLECYSTECTOMY ??? CYSTOSCOPY W/ LASER LITHOTRIPSY Right 05/17/2018 Procedure: CYSTOSCOPY RIGHT URETEROSCOPY WITH HOLMIUM LASER STANDBY RIGHT URETERAL STONE EXTRACTIONRIGHT STENT PLACEMENT; Surgeon: Grabiel Johnson MD; Location: [facility] OR; Service: ??? HYSTERECTOMY ??? NECK SURGERY History reviewed. No pertinent family history. Social History Socioeconomic History ??? Marital status: Spouse name: Not on file ??? Number of children: Not on file ??? Years of education: Not on file ??? Highest education level: Not on file Occupational History ??? Not on file Social Needs ??? Financial resource strain: Not on file ??? Food insecurity Worry: Not on file Inability: Not on file ??? Transportation needs Medical: Not on file Non-medical: Not on file Tobacco Use ??? Smoking status: Never Smoker ??? Smokeless tobacco: Never Used Substance and Sexual Activity ??? Alcohol use: Not on file ??? Drug use: Not on file ??? Sexual activity: Not on file Lifestyle ??? Physical activity Days per week: Not on file Minutes per session: Not on file ??? Stress: Not on file Relationships ??? Social connections Talks on phone: Not on file Gets together: Not on file Attends mandaen service: Not on file Active member of club or organization: Not on file Attends meetings of clubs or organizations: Not on file Relationship status: Not on file ??? Intimate partner violence Fear of current or ex partner: Not on file Emotionally abused: Not on file Physically abused: Not on file Forced sexual activity: Not on file Other Topics Concern ??? Not on file Social History Narrative ??? Not on file No current facility-administered medications on file prior to encounter. Current Outpatient Medications on File Prior to Encounter Medication Sig Dispense Refill ??? acetaminophen-caffeine (EXCEDRIN) 500-65 mg Tab per tablet Take 2 tablets by mouth every 6 (six)hours as needed (headache, pain). ??? cholecalciferol, vitamin D3, 5,000 unit Tab Take 5,000 Units by mouth daily. ??? DULoxetine (CYMBALTA) 60 MG capsule Take 60 mg by mouth 2 (two) times a day. ??? gabapentin (NEURONTIN) 300 MG capsule Take 600 mg by mouth 2 (two) times a day. ??? hydrOXYzine pamoate (VISTARIL) 50 MG capsule Take 50 mg by mouth every 8 (eight) hours as needed. ??? levothyroxine (SYNTHROID, LEVOTHROID) 200 MCG tablet Take 200 mcg by mouth Daily at 6:00 am. ??? metoprolol succinate (TOPROL-XL) 100 MG 24 hr tablet Take 100 mg by mouth daily. ??? multivitamin therapeutic tablet Take 1 tablet by mouth daily. ??? oxyCODONE-acetaminophen (PERCOCET) 5-325 mg per tablet Take 1 tablet by mouth every 4 (four) hours as needed for pain. ??? sulfamethoxazole-trimethoprim (SEPTRA DS) 800-160 mg per tablet Take 1 tablet by mouth 2 (two) times a day. ??? tamsulosin (FLOMAX) 0.4 mg cap Take 0.4 mg by mouth Daily after breakfast. ??? tiZANidine (ZANAFLEX) 4 MG tablet Take 4 mg by mouth every 6 (six) hours as needed. Review of Systems: A full 10 point review of systems was taken and is negative aside from what is noted above in the HPI. Consitutional / General: Denies wt changes, fevers, chills or sweats. Allergies: No Known Allergies Skin: Denies rashes, bruising, pruritis, or bleeding tendencies. ENT: Denies trauma, headache, hearing loss, tinnitus, dysphagia Eyes: Denies double vision Respiratory: Denies SOB, cough, sputum production or dyspnea on exertion. Cardiovascular: Denies chest pain, palpitations, orthostatic hypotension Hematology / Lymph: Denies hx of blood clots or pulmonary embolism Gastrointestinal: Denies loss of appetite, dysphagia, N/V, constipation or diarrhea. Genitourinary: Denies dysuria, frequency, urgency, hesitancy, incontinence, nocturia, hematuria, difficulty starting or stopping their stream, hx of stones or hx of uti's. Neurologic: Denies headache, LOC, memory loss, vertigo, syncope or seizures. Musculoskeletal: Denies back pain, numbness, tingling or hx of back surgery Psychological: alert and oriented Intake/Output past 24 hrs: No intake or output data in the 24 hours ending 01/03/20 1702 Physical Exam: Temp: [98.1 ??F (36.7 ??C)] 98.1 ??F (36.7 ??C) Heart Rate: [110] 110 Resp: [16] 16 BP: (160)/(93) 160/93 General: NAD, alert, cooperative Head: normocephalic, without abnormality / atraumatic Pulm: ctab Heart: RRR Abdomen: soft, non-tender, non-distended. No suprapubic fullness or tenderness. Back: tender in flank bilaterally Skin: no rashes or lesions Musculoskeletal: moves all four extremities equally; no calf edema or tenderness Psychological: alert and oriented, answers questions appropriately Assessment/Plan: Mariia Culver is here for bilateral ureteroscopy, laser lithotripsy, stent placement 1. Keep NPO, antibiotics ordered 2. Plan for discharge and f/u with Dr. Reis in 1-2 weeks for stent management. Arturo Echevarria [facility] Urology Office Phone: #[phone] documented in this encounter Miscellaneous Notes Op Note - Arturo Echevarria MD - 01/03/2020 5:20 PM CDT Operative Note Name: Mariia Culver Location: [facility] Main OR Procedure Date: 01/03/2020 PCP: Jeremie Perkins MD Pre-Procedure Diagnosis: Ureteral stone [N20.1] Renal stones [N20.0] Post-Procedure Diagnosis: Same Surgeon(s): Arturo Echevarria MD Findings: Bilateral distal ureteral stones Estimated Blood Loss: * No blood loss documented between In Room and Out of Room log events - 01/03/2020 12:00 AM to 01/03/2020 5:20 PM * Specimens: Bilateral ureteral stones Drains: 6x26cm ureteral stents bilaterally placed Complications: None FINDINGS: Normal bladder mucosa, no evidence of tumors, stones, diverticuli, and trabeculations. Bilateral ureters in orthotopic position Bilateral ureters without filling defect Antibiotics:levaquin Stent placed:6x26cm no string, bilateral INDICATIONS: This is a 54 y.o. with finding of bilateral obstructing ureteral stones. Patient was recommended to undergo procedure. After discussion of risks, benefits and alternatives, patient expressed understanding and agreed to proceed. PROCEDURE: After informed consent was obtained, the patient was brought into the operating room. After a critical timeout was performed with 2 patient identifiers, anesthesia was induced. The patient was prepped and draped in the usual sterile fashion in the dorsal lithotomy position. A rigid cystoscope with a 30degree lens was introduced to the urethra. The urethra and bladder mucosa was visualized with the above findings. Retrograde pyelogram: An open ended catheter was placed into the right and 5cc of contrast was injected to show above findings. A sensor wire was placed up to the renal pelvis. Cystoscope was removed. A rigid ureteroscope was inserted into the right ureter and stone was visualized. Stone was basketed and removed w/o incident. The ureteroscope was then used to insert a new sensor wire into the left ureteral orifice. There wasconcern that the stone could be pushed up to the renal pelvis so no RPG was performed initially on the left side. Ureteroscopy alongside wire revealed small stone which was basketed easily. Wire was con firmed to be in renal pelvis by shooting a retrograde after stone was removed. Ureteral stents were placed under fluoroscopy and placement in bladder was confirmed by inserting the cystoscope to drain the bladder at the end. Proximal placement was confirmed using fluoroscopy. Patient tolerated the procedure well without any complications. Arturo Echevarria Date: 01/03/2020 Time: 5:20 PM documented in this encounter Plan of Treatment Not on filedocumented as of this encounter Procedures Procedure Name Priority Date/Time Associated Comments Diagnosis XR RETROGRADE Routine 01/03/2020 6:12 PM Results for this PYELOGRAM W/WO KUB > CDT procedu re are in 1 HR the results section. STONE ANALYSIS Routine 01/03/2020 6:00 PM Results for this CDT procedure are i n the results section. documented in this encounter Results XR Retrograde Pyelogram wwo KUB > 1 Hr (01/03/2020 6:12 PM CDT) Anatomical Region Laterality Modality Abdomen/Pelvis Other Specimen (Source) Anatomical Location Collection Method / Collectio n Time Received Time / Laterality Volume Narrative 01/03/2020 6:24 PM CDT EXAM: XR RETROGRADE PYELOGRAM W OR WO KUB INTRAOPERATIVE LOCATION: [facility] DATE/TIME: 01/03/2020 6:12 PM INDICATION: stent. Bilateral renal stone s. COMPARISON: CT 01/02/2020 TECHNIQUE: Exam performed by Urologist. FLUOROSCOPIC TIME: 0.2 minutes NUMBER OF IMAGES: 4 FINDINGS: Image 1 demonstrates placement of a guidewire into the upper portion of the renal pelvis. Image 2 demonstrates placement of a stent in the opposite ureter. There appear to be radiopaque stones or contrast in this kidneys upper collecting system. Images 3 and 4 demonstrate placement of a pigtail catheter in the collecting system of the initially opacified ureter. Procedure Note Yves Love MD - 04/03/2021Fo rmatting of this note might be different from the original. EXAM: XR RETROGRADE PYELOGRAM W OR WO KU B INTRAOPERATIVE LOCATION: [facility] DATE/TIME: 01/03/2020 6:12 PM INDICATION: stent. Bilateral renal stone s. COMPARISON: CT 01/02/2020 TECHNIQUE: Exam performed by Urologist. FLUOROSCOPIC TIME: 0.2 minutes NUMBER OF IMAGES: 4 FINDINGS: Image 1 demonstrates placement of a guidewire into the upper portion of the renal pelvis. Image 2 demonstrates placement of a stent in the opposite ureter. There appear to be radiopaque stones or contrast in this kidneys upper collecting system. Images 3 and 4 demonstrate placement of a pigtail catheter in the collecting system of the initially opacified ureter. Arturo Echevarria MD [facility] DIAGNOSTIC IMAGING ORDER EMILEE Stone analysis (01/03/2020 6:00 PM CDT) [facility] Method Time Signature Stone Mass 12 mg 01/06/2020 [facility] 4:06 PM CDT LABORATORIES Calculi Number 3 01/06/2020 [facility] 4:06 PM CDT LABORATORIES Calculi Size 1 to 4 mm 01/06/2020 [facility] 4:06 PM T LABORATORIES Calculi See Note 01/06/2020 [facility] 4:06 PM CDT LABORATORIES Comment: Specimen consists of three, small, brown, irregular calculi fragments. Stone Composition See Note 01/06/2020 4:06 PM CDT [facility] Comment: Calculi composed primarily of: 50% calcium oxalate monohydrate, and 50% calcium oxalate dihydrate. INTERPRETIVE INFORMATION: Calculi (Stone ) analysis Calculi are the products of physiologica l processes that yield crystalline compounds in a matrix of bio logical compounds and blood. ??Matrix components are not repor fe. ??The clinically significant crystalline components ident ified in calculi specimens are reported. ??Gross description may no t be consistent with composition determined by FTIR analysis. Performed by [facility], [facility] [place] [address] [email or web address], Wilbert Sanz MD, Lab. Director Specimen Anatomical Collection Method Collection Time Receive d Time (Source) Location / / Volume Laterality Calculus STONE - BODY 01/03/2020 6:00 PM 0 4:42 specimen MATERIAL / Unknown CDT AM CDT (specimen) Arturo Echevarria MD LAB - BODY FLUIDS ORDERABLES Performing Organization Address City/State/ZIP Code Phon e Number [facility] [place], [place] [phone] [address] [facility] [place] [address] [facility] [address] [place] [address] documented in this encounter Visit Diagnoses Diagnosis Ureteral stone Calculus of ureter documented in this encounter Additional Health Concerns Assessment Noted Time PHQ-9 Depression Total Score: 15 11/15/2018 3:49 PM CS T documented as of this encounter Care Teams Loan Documents Closer Relationship Specialty Start Date End Date Jeremie Perkins DO PCP - General Family Practice 01/02/20 [facility] [address] [place] [phone] Bhanu Godoy MD Assigned PCP 10/20/18 02/28/22 [address] [place], [place] [phone] documented as of this encounter
--- OUTSIDE RECORDS SUMMARY | 2022-08-10 10:53 | XMS_ITS | Encounter Summary ---
:1965 Author Organization [place] Address [address] [place] [address]. [place] [address] Care Team Providers Name Role Phone Bhanu Godoy MD Primary Care Provider Bhanu Godoy MD Unavailable Encounter Details Date Type Department Care Team Description 12/14/[address] [facility] Bhanu Godoy MD [place] [phone] Social History Tobacco Use Types Packs/Day Years [...] Telephone Encounter - Libby Foreman MA - 12/14/2019 11:47 AM CST Summary: Patient is due/failing the following: COLONOSCOPY, MAMMOGRAM and PHQ9 Reviewed: [x] CARE EVERYWHERE [x] LAST OV NOTE INCLUDING ENDO [x] FYI TAB [x] LAST PANEL ENCOUNTER [x] FUTURE APTS [x] MYCHART STATUS [x] IMMUNIZATIONS Action needed: Patient needs to do PHQ9. and Patient needs referral/order: Mammo and Colon Type of outreach: Pt does not come to this clinic Libby CONDE ORK INFRASTRUCTURE ARCHITECT documented in this encounter Plan of Treatment Not on filedocumented as of this encounter Visit Diagnoses Not on filedocumented in this encounter Additional Health Concerns Assessment Noted Time PHQ-9 Depression Total Score: 15 11/15/2018 3:49 PM CS T documented as of this encounter Care Teams Acid Washer Operator Relationship Specialty Start Date End Date Bhanu Godoy MD PCP - General Family Practice 12/21/18 01/01/20 [address] [place], [place] [phone] Bhanu Godoy MD Assigned PCP 10/20/18 02/28/22 [address] [place], [place] [phone] documented as of this encounter
--- OUTSIDE RECORDS SUMMARY | 2022-08-10 10:53 | XMS_ITS | Clinical Summary ---
:1965 Author Organization [facility] [place] [address] Care Team Providers Name Role Phone Jeremie Perkins Primary Care Provider [phone] Allergies No known active allergies Medications Medication Sig Dispensed Refills Start Date End Date Status multivitamin capsule Take 1 capsule 0 Active by mouth once daily. Cholecalciferol, Take 5,000 Units 0 Active Vitamin D3, 2,000 unit by mouth once tablet daily. levothyroxine Take 1 Tablet 90 tablet. 3 03/26/2021 Active (Synthroid) 200 mcg (200 mcg) by tabletIndications: mouth once Other specified daily. hypothyroidism Acetaminophen-Caffeine Take 2 Tablets 0 Active 500-65 mg tab by mouth. njckboj-pbrzmeee-dfjkl Take 1 Capsule 40 Capsule 0 09/04/2021 Active bital-codeine, by mouth every 4 124-10-09-30 mg, hours if needed (Fiorinal-Codeine #3) for Pain. Max 6 capsuleIndications: capsules per Headache syndrome day. fluticasone Inhale 1 Puff by 60 Each 11 09/04/2021 Active furoate-vilanteroL mouth once (Breo Ellipta) 100-25 daily. mcg/dose inhalerIndications: Allergic rhinitis due to pollen, unspecified seasonality metoprolol succinate Take 1 Tablet 90 tablet. 3 09/04/2021 Active (TOPROL XL) 100 mg (100 mg) by Sustained-Release mouth once tabletIndications: daily. Tachycardia tiZANidine (ZANAFLEX) Take 1 Capsule 270 Capsule 3 09/04/2021 Active 6 mg (6 mg) by mouth capsuleIndications: every 8 hours if Back pain without needed for radiation Muscle Spasm. Codeine-guaFENesin Take 5 mL by 473 mL 0 02/26/2022 Active 10-200 mg/5 mL mouth every 6 liqdIndications: Cough hours if needed (cough). traZODone (DESYREL) TAKE 1 TABLET BY 180 Tablet 0 05/28/2022 Active 100 mg MOUTH TWICE A tabletIndications: DAY Major depressive disorder, recurrent, in remission, unspecified (HC) Active Problems Problem Noted Date NSVT (nonsustained ventricular tachycardia) 09/07/2021 Morbid obesity 09/07/2021 Degeneration of cervical intervertebral disc 2 Hypothyroidism 08/12/2012 GERD (gastroesophageal reflux disease) 08/12/2012 Overview: Intermittent Obesity (BMI 30-39.9) 08/12/2012 Disk bulges with stenosis above the fusion 06/17/2012 Overview: Scheduled for discectomy/fusion C3-[address] Nathan 08/23/2012. S/P cervical spinal fusion at C5-6 06/17/2012 Left ankle posterior impingement 09/28/2011 Shoulder impingement syndrome 08/17/2011 Migraines 04/06/2011 Overview: Uses fiorinal [facility] MUL TIPLE NARC PRESCRIPTIONS. Major depressive disorder, recurrent, in remission, un specified Resolved Problems Problem Noted Date Resolved Date C5-6 Left Sided Disk Herniation 06/04/2011 06/17/20 12 Neck pain 04/06/2011 08/17/2011 Encounters Date Type Specialty Care Team Description 05/25/2022 Refill Jeremie Perkins DO Refill Request (Trazodone) from Last 3 Months Immunizations Name Administration Dates Next Due Influenza A (H1N1), Inactivated 11/07/2009 Influenza Intradermal PF 18-64 yrs 08/09/2012 Influenza Virus, Unspecified 08/01/2018, 09/08/2017, 016, 07/30/2015, 08/31/2014, 08/03/2013, 07/23/2013, 08/25/2011, 08/07/2010, 07/08/2009, 08/03/2006 Influenza, IIV3 (Age 6-35 mos) 07/30/2015, 07/08/2009 Influenza, IIV3 (Age >=3 years) 08/31/2014, 08/25/2011, 07/25, 08/03/2006 Influenza, IIV4 09/04/2021, 09/08/2017, 07/15/2016, 07/23/2013 Influenza, IIV4 (Age 6-35 Mos) 08/01/2018 Tdap 08/03/2013 Family History Medical History Relation Name Comments Cancer Brother 1 at 11 yo fr om leukemia Diabetes Brother 2 Diabetes Brother 3 Good Health Brother 4 X5 Other Father macular degenera tion Stroke Father Good Health Sister X3 Cancer-breast No Family History Relation Name Status Comments Brother 1 Brother 2 Brother 3 Brother 4 Father (Age 86) lung failure Mother Alive Sister Social History Tobacco Use Types Packs/Day Years Used Date Never Smoker Smokeless Tobacco: Never Used Alcohol Use Standard Drinks/Week Comments Yes 0 (1 standard drink = 0.6 oz pure alcoho l) Rare Alcohol Habits Answer Date Recorded How often do you have a drink containing alcohol? Not asked How many drinks containing alcohol do you have on a typical Not asked day when you are drinking? How often do you have six or more drinks on one occasion? No t asked Comment: Rare 05/13/2018 Sex Assigned at Date Recorded Not on file Obstetrics History Last Filed Vital Signs Vital Sign Reading Time Taken Comments Blood Pressure 114/84 02/26/2022 9:42 AM CDT Pulse 100 02/26/2022 9:42 AM CDT Temperature 36.8 ??C (98.2 ??F) 02/26/2022 9:42 AM CDT Respiratory Rate 15 05/04/2021 2:59 PM CDT Oxygen Saturation 95% 02/26/2022 9:42 AM CDT Inhaled Oxygen Concentration - - Weight 112.8 kg (248 lb 9.6 oz) 02/26/2022 9:42 AM with shoes CDT Height 170.2 cm (5' 7) 05/04/2021 2:59 PM CDT Body Mass Index 38.94 05/04/2021 2:59 PM CDT Plan of Treatment Health Maintenance Due Date Last Done Comments Pap test for age 21-65 01/06/1984 Colonoscopy through age 75 01/06/2008 Zoster (shingles) series for age 0301/05/2013 50+ (1 of 2) COVID-19 vaccine series (4 - 11/19/2021 09/24/2021, 021, Booster for Moderna series) 01/08/2021 Mammogram for age 45-75 02/12/2022 02/12/2021 BMI (ht and wt on same day) for 05/04/2022 05/04/2021, 06/0 11/2020, age 18+ 02/28/2018, Additional history exists Influenza for age 50-64 06/25/2022 09/04/2021, 08/01/2018, 09/08/2017, Additional history exists Depression screening for age 12+ 09/04/2022 09/04/2021, Tetanus booster 08/03/2023 08/03/2013 Lipids for age 45-75 09/04/2026 09/04/2021 Tdap Completed 08/03/2013 Hepatitis C screening for age Completed 09/04/2021 18-79 Medical Devices Implanted Type Area Sole Tier Device Shelf Model / Identifier Expiration Serial / Date Lot Screw 4.0x14mm Slf Drilling Fa - [id number] N/A: Karine [id number] / Implanted: Qty: 1 on 12/23/2011 at [facility] [employer] / Plate 51mm 3 Level N/A: [id number] / Implanted: Qty: 1 on 08/23/2012 by Vickie Ballesteros MD at [facility] Spine / Description: PLATE 51MM 3 LEVEL Stent Prcflx [id number] Hydpls - [id number] Right: Ureter BSC U rology 06/24/2016 [id number] / Implanted: Qty: 1 on 08/04/2013 by Perez Ramos MD at [facility] / [id number] Results Not on filefrom Last 3 Months Insurance Payer Benefit Plan / Subscriber ID Effective Dates Phone Addre ss Type Group [employer] [id number] 2021-Present [address] [place] [address] BLUE CROSS BLUE CROSS OF [id number] 2005-Present [address] [place] [address] Mariia Culver Personal/Family Self 1965 [address] (Home) [place] [address] Advance Directives Latest Code Status on File Code Status Date Activated Date Inactivated Comments Full Code 08/04/2013 9:43 AM 08/04/2013 4:40 PM Full Code 08/23/2012 5:27 PM 08/25/2012 1:53 PM Full Code 08/23/2012 12:05 PM 08/23/2012 5:27 PM Full Code 12/23/2011 3:21 PM 12/24/2011 3:52 PM Full Code 12/23/2011 7:57 AM 12/23/2011 3:21 PM Care Teams Classification Inspector Relationship Specialty Start Date End Date Jeremie Perkins DO PCP - General Family Practice 01/12/18 [address] [place] [address]
--- OUTSIDE RECORDS SUMMARY | 2022-08-10 10:53 | XMS_ITS | Encounter Summary ---
:1965 Author Organization [facility] Address [address] [place] [address]. [place] [address] Care Team Providers Name Role Phone Bhanu Godoy MD Primary Care Provider Bhanu Godoy MD Unavailable Reason for Visit Reason Comments Medication Refill venlafaxine Encounter Details Date Type Department Care Team Description 06/10/2019 Refill [facility] Bhanu Godoy MD Medication Refill [place] [id number] [place] [address] (venlafaxine) [id number] [place] [address] [phone] Social History Tobacco Use Types Packs/Day Years [...] this encounter Miscellaneous Notes Telephone Encounter - Elsie Garcia - 06/10/2019 3:38 PM CDT Last Written Prescription Date: 05/16/19 Last Fill Quantity: 30 tablet, # refills: 1 Last office visit: 02/23/2019 with prescribing provider: Walt Future Office Visit: [facility] Follow-up to PHQ 11/15/2018 PHQ-9 9. Suicide Ideation past 2 weeks Several days Requested Prescriptions Pending Prescriptions Disp Refills ??? venlafaxine (EFFEXOR-ER) 150 MG 24 hr tablet [Pharmacy Med Name: VENLAFAXINE HCL ER 150 MG TAB] 30 tablet 1 Sig: TAKE 1 TABLET BY MOUTH EVERY DAY Serotonin-Norepinephrine Reuptake Inhibitors Failed - 06/10/2019 12:35 PM Failed - Blood pressure under 140/90 in [...] of this encounter Care Teams Director Of Institutional Research Relationship Specialty Start Date End Date Bhanu Godoy MD PCP - General Family Practice 12/21/18 01/01/20 [address] [place] [address] Bhanu Godoy MD Assigned PCP 10/20/18 02/28/22 [address] [place] [address] documented as of this encounter
--- OUTSIDE RECORDS SUMMARY | 2022-08-10 10:53 | XMS_ITS | Clinical Summary ---
:1965 Author Organization [facility] Address [address] [place] [address] Care Team Providers Name Role Phone Jeremie Perkins DO Primary Care Provider Allergies No known active allergies Medications Medication Sig Dispensed Refills Start Date End Date Status VITAMIN D, Take 2,000 0 Active CHOLECALCIFEROL, PO Units by mouth daily. itibwto-nfmmqqjqyrkol-dwbc Take 2 tablets 0 Active eine (EXCEDRIN MIGRAINE) by mouth every 250-250-65 MG per tablet 8 hours as needed GABAPENTIN PO Take 600 mg by 0 A ctive mouth 3 times daily levothyroxine Take 200 mcg 0 Act brandie (SYNTHROID/LEVOTHROID) 200 by mouth daily MCG tablet hydrOXYzine (ATARAX) 50 MG Take 50 mg by 0 Active tablet mouth 3 times daily as needed for itching meloxicam (MOBIC) 15 MG Take 15 mg by 0 Active tablet mouth daily hydrochlorothiazide TAKE 1 TABLET 10 10/05/2018 Active (HYDRODIURIL) 25 MG tablet BY MOUTH DAILY NEEDED FOR LEG SWELLING metoprolol succinate ER Take 100 mg by 3 10/07/2018 Active (TOPROL-XL) 100 MG 24 hr mouth daily tablet acetaminophen-caffeine Take 2 tablets 0 Active (EXCEDRIN TENSION by mouth HEADACHE) 500-65 MG TABS zolpidem (AMBIEN) 5 MG Take 1 tablet 30 tablet 0 02/02/2019 Active tabletIndications: (5 mg) by Insomnia, unspecified type mouth nightly as needed for sleep Additional Information Patient not taking. Reported on 03/01/2019 DULoxetine (CYMBALTA) 30 MG Take 1 capsule (30 10 capsule 0 Active capsuleIndications: Mild major mg) by mouth daily depression (H), Anxiety Until gone venlafaxine (EFFEXOR-XR) 37.5 MG SIG 1 every day X 7 21 capsule 1 02/23/2019 Active 24 hr capsuleIndications: days then 2 every Migraine without status day X 7 days then migrainosus, not intractable, switch unspecified migraine type, Mild major depression (H), Anxiety traZODone (DESYREL) 50 MG TAKE 1 TABLET (50 30 tablet 1 2018 Active tabletIndications: Primary MG) BY MOUTH AT insomnia BEDTIME venlafaxine (EFFEXOR-ER) 150 MG TAKE 1 TABLET BY 30 tablet 1 0 07/17/2019 Active 24 hr tabletIndications: MOUTH EVERY DAY Migraine without status migrainosus, not intractable, unspecified migraine type, Mild major depression (H), Anxiety ibuprofen (ADVIL/MOTRIN) 600 MG Take 1 tablet (600 30 tablet 1 01/02/2020 Active tablet mg) by mouth every 6 hours as needed for moderate pain oxyCODONE (ROXICODONE) 5 MG Take 1 tablet (5 mg) 12 tablet 0 0 01/02/2020 Active tablet by mouth every 6 hours as needed for pain Active Problems Problem Noted Date Nephrolithiasis 12/01/2018 Hypertension, unspecified type 11/16/2018 Hx of pancreatitis 11/16/2018 Mild major depression 11/16/2018 Morbid obesity 11/16/2018 Anxiety 11/16/2018 Syncope 01/06/2018 Chronic abdominal pain 07/23/2013 Migraine headache 03/25/2013 Resolved Problems Problem Noted Date Resolved Date Obesity (BMI 35.0-39.9) with comorbidity 11/16/2018 11/16/2018 Narcotic withdrawal 07/21/2013 11/16/2018 Pancreatitis 03/25/2013 11/16/2018 Immunizations Name Administration Dates Next Due FLU 6-35 months 07/30/2015, 07/08/2009 Influenza (H1N1) 11/07/2009 Influenza (IIV3) PF 08/31/2014, 08/25/2011, 08/07/2010, 08/03/2006 Influenza (intradermal) 08/09/2012 Influenza Vaccine IM > 6 months 09/08/2017, 07/15/2016, 06/26 Valent IIV4 (Alfuria,Fluzone) Influenza Vaccine IM Ages 6-35 08/01/2018 Months 4 Valent (PF) TDAP Vaccine (Adacel) 08/03/2013 Family History Medical History Relation Comments Diabetes Brother 1 Diabetes Brother 2 Diabetes Brother 3 C.A.D. Father Cerebrovascular Disease Father Pacemaker Father Respiratory Father lung fibrosis Cardiomyopathy Sister Diabetes Sister Pacemaker Sister Had a pacemaker and defibrillator placed at age 45 for idiopathic dilat ed cardiomyopathy Relation Status Comments Brother 1 Brother 2 Brother 3 Father Alive Mother Alive Sister Alive Social History Tobacco Use Types Packs/Day Years Used Date Smoking Tobacco: Never Smokeless Tobacco: Never Tobacco Cessation: Counseling Given: No Alcohol Use Standard Drinks/Week Comments Yes 0 [...] Assigned at Date Recorded Not on file Last Filed Vital Signs Vital Sign Reading Time Taken Comments Blood Pressure 117/55 12/17/2020 12:00 PM FREIGHT BOOKER Pulse 107 12/17/2020 12:00 PM FREIGHT BOOKER Temperature 36.4 ??C (97.6 ??F) 12/17/2020 11:07 AM FREIGHT BOOKER Respiratory Rate 16 12/17/2020 11:07 AM FREIGHT BOOKER Oxygen Saturation 95% 12/17/2020 12:00 PM FREIGHT BOOKER Inhaled Oxygen Concentration - - Weight 113.4 kg (250 lb) 01/03/2020 4:14 PM CDT Height 170.2 cm (5' 7) 01/03/2020 4:14 PM CDT Body Mass Index 39.16 01/03/2020 4:14 PM CDT Plan of Treatment Health Maintenance Due Date Last Done Comments ADVANCE CARE PLANNING 1965 ANNUAL REVIEW OF HM ORDERS [address] CT COLONOGRAPHY 1965 DEPRESSION ACTION PLAN 1965 FIT-DNA (Cologuard) 1965 FIT 1965 FLEX SIG 1965 HEPATITIS B IMMUNIZATION (1 1965 of 3 - 3-dose series) MAMMO SCREENING 1965 YEARLY PREVENTIVE VISIT 1965 COVID-19 Vaccine (#1) 1965 COLONOSCOPY 1973 COLORECTAL CANCER SCREENING 1973 HIV SCREENING 1978 HEPATITIS C SCREENING 1981 PAP 01/06/1984 ZOSTER IMMUNIZATION (1 of 2013 2) LIPID 03/25/2018 03/25/2013 PHQ-9 05/15/2019 11/15/2018 INFLUENZA VACCINE (#1) 2022 08/01/2018, 09/08/2017, 07/15/2016, Additional history exists DTAP/TDAP/TD IMMUNIZATION 08/03/2023 08/03/2013 (2 - Td or Tdap) IPV IMMUNIZATION Aged Out No longer eligi ble based on patient 's age to complete this topic MENINGITIS IMMUNIZATION Aged Out No longe r eligible based on patient 's age to complete this topic Pneumococcal Vaccine: Aged Out No longer eligible Pediatrics (0 to 5 Years) based on patient's age and At-Risk Patients (6 to to co mplete this topic 64 Years) Medical Devices Implanted Type Area Network Systems Consultant Device Shelf Model / Identifier Expiration Serial / Date Lot Stent Percuflex Plus [id number] Stent Right: EAU CLAIRE 08/17/2020 [id number] / Implanted: Qty: 1 on 05/17/2018 [employer] / [id number] Stent Percuflex Plus 6x26 [id number] - Sna Stent Right: EAU CLAIRE 09/13/2022 [id number] / Implanted: Qty: 1 on 01/03/2020 [employer]re[employer] NA / [id number] Spine N/A: Spine Cervical Description: x3 levels Insurance Payer Benefit Plan / Subscriber ID Effective Dates Phone Addre ss Type Group BCBS BCBS OUT OF [id number] 2005-Present [phone] [address] [address] [place] [address] (Home) [place] [phone] [place] (Work) [phone] Advance Directives For more information, please contact: [phone] Latest Code Status on File Code Status Date Activated Date Inactivated Comments Full Code 01/06/2018 2:33 PM 11/27/2018 3:16 PM Code Status History Code Status Date Activated Date Inactivated Comments Full Code 01/06/2018 12:43 AM 01/06/2018 2:33 PM Full Code 07/23/2013 11:57 AM 01/06/2018 12:43 AM Full Code 06/26/2013 10:27 AM 07/23/2013 11:57 AM Full Code 06/24/2013 9:29 PM 06/26/2013 10:27 AM Care Teams Industrial Truck Driver Relationship Specialty Start Date End Date Jeremie Perkins DO PCP - General Family Practice 01/02/20 [facility] [address] [place] [address]
--- OUTSIDE RECORDS SUMMARY | 2022-08-10 10:53 | XMS_ITS | Encounter Summary ---
:1965 Author Organization [facility] Address [address] [place] [address]. [place] [address] Care Team Providers Name Role Phone Bhanu Godoy MD Unavailable Jeremie Perkins DO Primary Care Provider Encounter Details Date Type Department Care Team Description 12/17/2020 Travel Social History Tobacco Use Types Packs/Day [...] with No / Unsure 12/17/2020 11:04 AM INNERSOLE MAKER someone who was confirmed or suspected to have Coronavirus / COVID-19? documented as of this encounter Plan of Treatment Not on filedocumented as of this encounter Visit Diagnoses Not on filedocumented in this encounter Additional Health Concerns Assessment Noted Time PHQ-9 Depression Total Score: 15 11/15/2018 3:49 PM CS T documented as of this encounter Care Teams Tunnel Drier Operator Relationship Specialty Start Date End Date Jeremie Perkins DO PCP - General Family Practice 01/02/20 [facility] [address] [facility] [place] [address] Bhanu Godoy MD Assigned PCP 10/20/18 02/28/22 [address] [place] [address] documented as of this encounter
--- OUTSIDE RECORDS SUMMARY | 2022-08-10 10:53 | XMS_ITS | Encounter Summary ---
:1965 Author Organization [facility] Address [address] [place] [address]. [place] [address] Care Team Providers Name Role Phone Bhanu Godoy MD Primary Care Provider Bhanu Godoy MD Unavailable Reason for Visit Reason Comments Medication Refill Encounter Details Date Type Department Care Team Description 06/22/2019 Refill [facility] Bhanu Godoy MD Medication Refill [address] [address] [place] [address] [phone] Social History Tobacco Use Types Packs/Day Years [...] this encounter Miscellaneous Notes Telephone Encounter - Enmanuel Perkins RN - 06/22/2019 6:35 PM CDT Was sent on 05/31/2019 should not need a refill at this time. Enmanuel Perkins RN, BSN documented in this encounter Plan of Treatment Not on filedocumented as of this encounter Visit Diagnoses Diagnosis Primary insomnia Persistent disorder of initiating or ana ntaining sleep documented in this encounter Additional Health Concerns Assessment Noted Time PHQ-9 Depression Total Score: 15 11/15/2018 3:49 PM CS T documented as of this encounter Care Teams Scanner Supervisor Relationship Specialty Start Date End Date Bhanu Godoy MD PCP - General Family Practice 12/21/18 01/01/20 [address] [place], [place] [id number] Bhanu Godoy MD Assigned PCP 10/20/18 02/28/22 [address] [place], [place] [id number] documented as of this encounter
--- OUTSIDE RECORDS SUMMARY | 2022-08-10 10:53 | XMS_ITS | Encounter Summary ---
:1965 Author Organization [facility] Address [address] [place] [address]. [place] [address] Care Team Providers Name Role Phone Bhanu Godoy MD Unavailable Jeremie Perkins DO Primary Care Provider Adams Dove MD Unavailable [phone] Encounter Details Date Type Department Care Team Description 01/03/2020 Records - [facility] Provider, Histo rical External Imaging [address] [place] [address] Social History Tobacco Use Types Packs/Day Years [...] with No / Unsure 12/17/2020 11:04 AM GARMENT FITTER someone who was confirmed or suspected to have Coronavirus / COVID-19? documented as of this encounter Plan of Treatment Not on filedocumented as of this encounter Procedures Procedure Name Priority Date/Time Associated Diagnosis Comme nts CT EXTERNAL IMAGING Routine 01/02/2020 11:18 AM R esults for this ABDOMEN CDT procedure are i n the results section. documented in this encounter Results CT External Imaging Abdomen (01/02/2020 11:18 AM CDT) Anatomical Region Laterality Modality Other Specimen (Source) Anatomical Location Collection Method / Collectio n Time Received Time / Laterality Volume Narrative 01/03/2020 11:18 AM CDT Please see PACS Hyperlink for images and scanned result text. Procedure Note Provider, Historical - 04/03/2021Formatt ing of this note might be different from the original. Please see PACS Hyperlink for images and scanned result text. Historical Provider IMG EXTERNAL IMAGING ORDERAB LES documented in this encounter Visit Diagnoses Not on filedocumented in this encounter Additional Health Concerns Assessment Noted Time PHQ-9 Depression Total Score: 15 11/15/2018 3:49 PM CS T documented as of this encounter Care Teams Artificial Cherry Maker Relationship Specialty Start Date End Date Jeremie Perkins DO PCP - General Family Practice 01/02/20 [facility] [address] [place] [phone] Bhanu Godoy MD Assigned PCP 10/20/18 02/28/22 [address] [place], [place] [id number] Adams Dove Assigned Rheumatology 08/16/20 09/07/20 MD Jake Provider [facility] [address] [place] [address] documented as of this encounter
--- OUTSIDE RECORDS SUMMARY | 2022-08-10 10:54 | XMS_ITS | Encounter Summary ---
:1965 Author Organization [facility] Address [address] [place] [address]. [place] [address] Care Team Providers Name Role Phone No Ref-Primary, Physician Primary Care Provider Bhanu Godoy MD Unavailable Bhanu Godoy MD Primary Care Provider Bhanu Godoy MD Unavailable Reason for Referral Diagnostic Procedure Outpatient - Closed Specialty Diagnoses / Procedures Referred By Contact Refer red To Contact Diagnoses Special screening for malignant neoplasms, colon Bhanu Godoy MD [address] [place] [address] Phone: Fax: Referral ID Status Reason Start Date Expiration Date Visits Requ ested Visits Authorized [id number] Closed 01/03/2019 01/03/2020 1 1 Reason for Visit Reason Onset Date Comments Panel Management 12/09/2018 colonoscopy, pap, ma mmo, and problem list---hypothyroid Encounter Details Date Type Department Care Team Description 12/09/2018 Telephone [facility] Bhanu Godoy MD Panel Management Clinic [address] (colonoscopy, pap, [address] [place] [address] mammo, [place] [address] list---hypothyroid) [phone] Social History Tobacco Use Types Packs/Day [...] Telephone Encounter - Libby Foreman MA - 01/03/2019 10:12 AM CDT Type of outreach: Phone, spoke to patient. I PUT IN ORDER FOR COLONOSCOPY Libby CONDE Telephone Encounter - Debi Balderas CMA - 12/09/2018 11:12 AM CST Panel Management Review Patient has the following on her problem list: None Composite cancer screening Chart review shows that this patient is due/due soon for the following Pap Smear, Mammogram, Colonoscopy and problem list Summary: Patient is due/failing the following: COLONOSCOPY, MAMMOGRAM and PAP Action needed: Patient needs office visit for PE/PAP. and Patient needs referral/order: colonoscopy and mammo Type of outreach: panel pool Questions for provider review: Debi Balderas/[facility]---[facility] Chart routed to Care Team . E MINER BLASTING documented in this encounter Plan of Treatment Scheduled Referrals Name Type Priority Associated Diagnoses Order S chedule GASTROENTEROLOGY ADULT REF Referral Routine Special screen ing for Ordered: 01/03/2019 PROCEDURE ONLY malignant neoplasms, colon documented as of this encounter Visit Diagnoses Diagnosis Special screening for malignant neoplasm s, colon - Primary documented in this encounter Additional Health Concerns Assessment Noted Time PHQ-9 Depression Total Score: 15 11/15/2018 3:49 PM CS T documented as of this encounter Care Teams Senior Program Manager Relationship Specialty Start Date End Date No Ref-Primary, Physician PCP - General 11/15/18 12/20/18 Bhanu Godoy MD PCP - Assigned PCP 10/20/18 12/27/18 [address] [place], [place] [phone] Bhanu Godoy MD PCP - General Family Practice 12/21/18 01/01/20 [address] [place], [place] [id number] Bhanu Godoy MD Assigned PCP 10/20/18 02/28/22 [address] [place], [place] [id number] documented as of this encounter
--- OUTSIDE RECORDS SUMMARY | 2022-08-10 10:54 | XMS_ITS | Encounter Summary ---
:1965 Author Organization [place] Address [address] [place] [address]. [place] [address] Care Team Providers Name Role Phone Bhanu Godoy MD Primary Care Provider Bhanu Godoy MD Unavailable Encounter Details Date Type Department Care Team Description 02/16/2019 Telephone [facility] Bhanu Godoy MD [place] [phone] Social History Tobacco Use Types Packs/Day Years [...] this encounter Miscellaneous Notes Telephone Encounter - Itzel Guillen RN - 02/17/2019 9:02 AM CDT The Pt called back. I scheduled her to see Dr. Godoy to go over results. Itzel Guillen RN -- [facility] [employer] Telephone Encounter - Bel Day CMA - 02/17/2019 8:49 AM CDT LMOM Bel Day CMA Telephone Encounter - Bhanu Godoy MD - 02/16/2019 3:20 PM CDT Gene sight Gene site shows bupropion levels may be too high, citalopram Paxil and Zoloft may have decreased efficacy, duloxetine fluvoxamine maleate mirtazapine levels may be too low Bhanu Godoy documented in this encounter Plan of Treatment Not on filedocumented as of this encounter Visit Diagnoses Not on filedocumented in this encounter Additional Health Concerns Assessment Noted Time PHQ-9 Depression Total Score: 15 11/15/2018 3:49 PM CS T documented as of this encounter Care Teams Ship Unloader Relationship Specialty Start Date End Date Bhanu Godoy MD PCP - General Family Practice 12/21/18 01/01/20 [address] [place], [place] [id number] Bhanu Godoy MD Assigned PCP 10/20/18 02/28/22 [address] [place], [place] [id number] documented as of this encounter
--- OUTSIDE RECORDS SUMMARY | 2022-08-10 10:54 | XMS_ITS | Encounter Summary ---
:1965 Author Organization [place] Address [address] [place] [address] Care Team Providers Name Role Phone No Ref-Primary, Physician Primary Care Provider [phone] Bhanu Godoy MD Unavailable Bhanu Godoy MD Unavailable Encounter Details Date Type Department Care Team Description 11/27/2018 Travel Social History Tobacco Use Types Packs/Day Years Used Date Smoking Tobacco: Never Smokeless Tobacco: Never Alcohol Use Standard Drinks/Week Comments Yes 0 (1 standard drink = 0.6 oz pure alcoho l) 3-4 drinks per month Alcohol Habits Answer Date Recorded How often [...] documented as of this encounter Care Teams Project Manager Relationship Specialty Start Date End Date No Ref-Primary, Physician PCP - General 11/15/18 12/20/18 Bhanu Godoy MD PCP - Assigned PCP 10/20/18 12/27/18 [address] [place] [address] Bhanu Godoy MD Assigned PCP 10/20/18 02/28/22 [address] [facility], [place] [id number] documented as of this encounter
--- OUTSIDE RECORDS SUMMARY | 2022-08-10 10:54 | XMS_ITS | Encounter Summary ---
:1965 Author Organization [place] Address [address] [place] [address] Care Team Providers Name Role Phone Bhanu Godoy MD Primary Care Provider Bhanu Godoy MD Unavailable Encounter Details Date Type Department Care Team Description 03/01/2019 Travel Social History Tobacco Use Types Packs/Day [...] documented as of this encounter Care Teams Wood Planer Relationship Specialty Start Date End Date Bhanu Godoy MD PCP - General Family Practice 12/21/18 01/01/20 [address] [place], [place] [id number] Bhanu Godoy MD Assigned PCP 10/20/18 02/28/22 [address] [place] [address] documented as of this encounter
--- OUTSIDE RECORDS SUMMARY | 2022-08-10 10:54 | XMS_ITS | Encounter Summary ---
:1965 Author Organization [place] Address [address] [facility] [place] [address] Care Team Providers Name Role Phone Bhanu Godoy MD Primary Care Provider Bhanu Godoy MD Unavailable Encounter Details Date Type Department Care Team Description 02/09/2019 Medical Correspondence [facility] Scan, [facility] Info Mgmt Non-Provider [facility] Srvcs DOCUMENTATION [address] [place] [address] Social History Tobacco Use Types Packs/Day Years [...] documented as of this encounter Care Teams Marriage And Family Teacher Relationship Specialty Start Date End Date Bhanu Godoy MD PCP - General Family Practice 12/21/18 01/01/20 [address] [place] [address] Bhanu Godoy MD Assigned PCP 10/20/18 02/28/22 [address] [place] [address] documented as of this encounter
--- OUTSIDE RECORDS SUMMARY | 2022-08-10 10:54 | XMS_ITS | Encounter Summary ---
:1965 Author Organization [place] Address [address] [place] [address] Care Team Providers Name Role Phone Bhanu Godoy MD Primary Care Provider Bhanu Godoy MD Unavailable Encounter Details Date Type Department Care Team Description 12/28/2018 Travel Social History Tobacco Use Types Packs/Day [...] as of this encounter Care Teams Senior Clinical Project Manager Relationship Specialty Start Date End Date Bhanu Godoy MD PCP - General Family Practice 12/21/18 01/01/20 [address] [place], [place] [phone] Bhanu Godoy MD Assigned PCP 10/20/18 02/28/22 [address] [place] [address] documented as of this encounter
--- OUTSIDE RECORDS SUMMARY | 2022-08-10 10:54 | XMS_ITS | Encounter Summary ---
:1965 Author Organization [place] Address [address] [place] [address]. [place] [address] Care Team Providers Name Role Phone No Ref-Primary, Physician Primary Care Provider [phone] Bhanu Godoy MD Unavailable Bhanu Godoy MD Unavailable Encounter Details Date Type Department Care Team Description 12/12/2018 Telephone [facility] Nickie Wright cie, RN [place] [id number] [place] [address] Social History Tobacco Use Types Packs/Day Years [...] this encounter Miscellaneous Notes Telephone Encounter - Nori Wright RN - 12/13/2018 10:22 AM CST Spoke with Patient who states frustration from 2 days ago when monitor beeped continuously. Patient states now for the past 24 hrs it has not make a noise. Patient will continue to wear monitor. Reminded of upcoming Dr. Echevarria OV 12-28-18. NEW GRADUATE Telephone Encounter - Nori Wright RN - 12/12/2018 9:14 AM CST Patient called, left message regarding heart monitor. Message left to call back. NEW GRADUATE documented in this encounter Plan of Treatment Not on filedocumented as of this encounter Visit Diagnoses Not on filedocumented in this encounter Additional Health Concerns Assessment Noted Time PHQ-9 Depression Total Score: 15 11/15/2018 3:49 PM CS T documented as of this encounter Care Teams Cover Creaser Relationship Specialty Start Date End Date No Ref-Primary, Physician PCP - General 11/15/18 12/20/18 Bhanu Godoy MD PCP - Assigned PCP 10/20/18 12/27/18 [address] [place], [place] [phone] Bhanu Godoy MD Assigned PCP 10/20/18 02/28/22 [address] [place], [place] [id number] documented as of this encounter
--- OUTSIDE RECORDS SUMMARY | 2022-08-10 10:54 | XMS_ITS | Encounter Summary ---
:1965 Author Organization [place] Address [address] [place] [address] Care Team Providers Name Role Phone No Ref-Primary, Physician Primary Care Provider Bhanu Godoy MD Unavailable Bhanu Godoy MD Unavailable Encounter Details Date Type Department Care Team Description 11/28/2018 Travel Social History Tobacco Use Types Packs/Day [...] documented as of this encounter Care Teams Ring Sorter Relationship Specialty Start Date End Date No Ref-Primary, Physician PCP - General 11/15/18 12/20/18 Bhanu Godoy MD PCP - Assigned PCP 10/20/18 12/27/18 [address] [place] [address] Bhanu Godoy MD Assigned PCP 10/20/18 02/28/22 [address] [facility] [place], [place] [id number] documented as of this encounter
--- OUTSIDE RECORDS SUMMARY | 2022-08-10 10:54 | XMS_ITS | Encounter Summary ---
:1965 Author Organization [place] Address [address] [place] [address]. [place] [address] Care Team Providers Name Role Phone Bhanu Godoy MD Primary Care Provider Bhanu Godoy MD Unavailable Reason for Visit Reason Comments Consult Encounter Details Date Type Department Care Team Description 02/23/2019 Office Visit [facility] Bhanu Godoy, Migrain e without status migrainosus, not intractable, unspecified migraine type (Primary Dx); Clinic Irina Villafuerte MD Mild major depression (H); [address] [place] [address] Anxiety; [place], [place] Primary insomnia [id number] Social History Tobacco Use Types Packs/Day Years [...] Sign Reading Time Taken Comments Blood Pressure 132/92 02/23/2019 11:07 AM CDT Pulse 93 02/23/2019 11:07 AM CDT Temperature 36.8 ??C (98.2 ??F) 02/23/2019 11:07 AM CDT Respiratory Rate - - Oxygen Saturation 99% 02/23/2019 11:07 AM CDT Inhaled Oxygen Concentration - - Weight 113.4 kg (250 lb) 02/23/2019 11:07 AM CDT Height - - Body Mass Index 39.16 12/28/2018 8:10 AM DISTANCE LEARNING PROGRAM COORDINATOR documented in this encounter Progress Notes Bhanu Godoy MD - 02/23/2019 11:00 AM CDT SUBJECTIVE: Alphonso Culver is a 54 year old female who presents to clinic today for the following health issues: HPI Consult - go over gene sight results Mammogram is scheduled Migraine without status migrainosus, not intractable, unspecified migraine type (primary encounter diagnosis)- Headaches are increasing in frequency. Mild major depression (H)- previously prescribed paroxetine will not be effective gene site testing indicates duloxetine needs to be higher dose PHQ-9 SCORE 11/15/2018 PHQ-9 Total Score 15 Anxiety- RHINA-7 SCORE 11/15/2018 Total Score 10 Primary insomnia- Taking Ambien, not effective. Has heard of trazodone Additional history: as documented Reviewed and updated as needed this visit by clinical staff Reviewed and updated as needed this visit by Provider Past Medical History: Diagnosis Date ??? Ankle impingement syndrome ??? Anxiety ??? Chronic abdominal pain 07/23/2013 ??? Hypertension, unspecified type 11/16/2018 ??? Hypothyroidism ??? Migraine ??? Mild major depression (H) 11/16/2018 ??? Morbid obesity (H) 11/16/2018 ??? Narcotic withdrawal (H) 07/21/2013 ??? Nephrolithiasis ??? Pancreatitis 3 episode 1996- 2004 ??? Shoulder impingement syndrome ??? Syncope 01/06/2018 Past Surgical History: Procedure Laterality Date ??? CHOLECYSTECTOMY 1992 ??? TAXI DRIVER SURGERY hysterectomy ??? [facility] UGI ENDOSCOPY W EUS 05/04/2013 Procedure: COMBINED ENDOSCOPIC ULTRASOUND, ESOPHAGOSCOPY, GASTROSCOPY, DUODENOSCOPY (EGD); Surgeon:Greta Joel MD; Location: [facility] ??? ORTHOPEDIC SURGERY cervical spine fusion Family History Problem Relation Age of Onset ??? C.A.D. Father ??? Respiratory Father lung fibrosis ??? Cerebrovascular Disease Father ??? Pacemaker Father 75 ??? Diabetes Brother ??? Diabetes Sister ??? Pacemaker Sister 45 Had a pacemaker and defibrillator placed at age 45 for idiopathic dilated cardiomyopathy ??? Cardiomyopathy Sister ??? Diabetes Brother ??? Diabetes Brother Social History Tobacco Use ??? Smoking status: Never Smoker ??? Smokeless tobacco: Never Used Substance Use Topics ??? Alcohol use: Yes Frequency: Monthly or less Comment: not very often ROS: Fell in bathtub, patient wonders if she aggravated her neck. No head trauma no loss of consciousnessshe has discomfort along the left trapezius. No fevers This document serves as a record of the services and decisions personally performed and made by Bhanu Godoy MD. It was created on his behalf by Chinmay Dudley, a trained medical imaging technologist. The creation of this document is based on the provider's statements to the medical imaging technologist. Chinmay Dudley February 23, 2019 11:12 AM OBJECTIVE: BP (!) 132/92 (BP Location: Right arm, Patient Position: Sitting, Cuff Size: Adult Large) Pulse 93 Temp 98.2 ??F (36.8 ??C) (Oral) Wt 113.4 kg (250 lb) SpO2 99% BMI 39.16 kg/m?? Body mass index is 39.16 kg/m??. Neck is tender along the left trapezius. Full range of motion no neural tension signs PSYCH anxious ASSESSMENT/PLAN: (G43.909) Migraine without status migrainosus, not intractable, unspecified migraine type (primary encounter diagnosis) Comment: discussed pathophysiology, esperanza history, treatment options, current guidelines Plan: venlafaxine (EFFEXOR-XR) 37.5 MG 24 hr capsule, venlafaxine (EFFEXOR-ER) 150 MG 24 hr tablet neck pain may be a variant (F32.0) Mild major depression (H) Comment:taper off/on Plan: DULoxetine (CYMBALTA) 30 MG capsule, venlafaxine (EFFEXOR-XR) 37.5 MG 24 hr capsule, venlafaxine (EFFEXOR-ER) 150 MG 24 hr tablet (F41.9) Anxiety Comment:taper Plan: DULoxetine (CYMBALTA) 30 MG capsule, venlafaxine (EFFEXOR-XR) 37.5 MG 24 hr capsule, venlafaxine (EFFEXOR-ER) 150 MG 24 hr tablet (F51.01) Primary insomnia Comment: Ajay ineffective Start, Plan: traZODone (DESYREL) 50 MG tablet The information in this document, created by the medical imaging technologist for me, accurately reflects the services I personally performed and the decisions made by me. I have reviewed and approved this document for accuracy prior to leaving the patient care area. February 23, 2019 11:13 AM Bhanu Godoy MD [facility] documented in this encounter Plan of Treatment Not on filedocumented as of this encounter Visit Diagnoses Diagnosis Migraine without status migrainosus, not intractable, unspecified migraine type - Primary Mild major depression (H) Major depressive disorder, single episod e, mild Anxiety Anxiety state, unspecified Primary insomnia Persistent disorder of initiating or ana ntaining sleep documented in this encounter Additional Health Concerns Assessment Noted Time PHQ-9 Depression Total Score: 15 11/15/2018 3:49 PM CS T documented as of this encounter Care Teams Gas Scrubber Operator Relationship Specialty Start Date End Date Bhanu Godoy MD PCP - General Family Practice 12/21/18 01/01/20 [address] [place], [place] [phone] Bhanu Godoy MD Assigned PCP 10/20/18 02/28/22 [address] [place] [address] documented as of this encounter
--- OUTSIDE RECORDS SUMMARY | 2022-08-10 10:54 | XMS_ITS | Encounter Summary ---
:1965 Author Organization [place] Address [address] [place] [address] Care Team Providers Name Role Phone Bhanu Godoy MD Primary Care Provider Bhanu Godoy MD Unavailable Encounter Details Date Type Department Care Team Description 01/25/2019 Travel Social History Tobacco Use Types Packs/Day [...] as of this encounter Care Teams Director Employee Safety And Health Relationship Specialty Start Date End Date Bhanu Godoy MD PCP - General Family Practice 12/21/18 01/01/20 [address] [place], [place] [phone] Bhanu Godoy MD Assigned PCP 10/20/18 02/28/22 [address] [place] [address] documented as of this encounter
--- OUTSIDE RECORDS SUMMARY | 2022-08-10 10:54 | XMS_ITS | Encounter Summary ---
:1965 Author Organization [place] Address [address] [place] [address]. [place] [address] Care Team Providers Name Role Phone No Ref-Primary, Physician Primary Care Provider [phone] Bhanu Godoy MD Unavailable Bhanu Godoy MD Unavailable Reason for Referral Consultation - Closed Specialty Diagnoses / Procedures Referred By Contact Refer red To Contact Diagnoses Fibromyalgia Bhanu Godoy MD [address] [address] Phone: Fax: Referral ID Status Reason Start Date Expiration Date Visits Requ ested Visits Authorized [id number] Closed 12/01/2018 12/01/2019 1 1 V Cardio consult - Closed Specialty Diagnoses / Procedures Referred By Contact Refer red To Contact Diagnoses Paroxysmal ventricular tachycardia Syncope, unspecified syncope type Bhanu Godoy MD [facility] [address] [place] [address] [phone] [facility] [address] Phone: [phone] Fax: Referral ID Status Reason Start Date Expiration Date Visits Requ ested Visits Authorized [id number] Closed 12/01/2018 12/01/2019 1 1 [facility] Reason for Visit Reason Comments RECHECK lab results Hospital F/U Encounter Details Date Type Department Care Team Description 12/01/2018 Office Visit [facility] Bhanu Godoy, Paroxys mal ventricular tachycardia (H) (Primary Dx); Clinic Irina Villafuerte MD Syncope, unspecified syncope type; [address] [address] [address] Fibromyalgia; [place], [place], Migraine w ithout aura and without status migrainosus, not intractable; [phone] [place] [address] Insomnia, unspecified type; [phone] Hypertension, u nspecified type; (Work) Nephrolithiasis Social History Tobacco Use Types Packs/Day Years [...] Sign Reading Time Taken Comments Blood Pressure 137/84 12/01/2018 9:31 AM [facility] SAW[facility]ER Pulse 97 12/01/2018 9:31 AM HARDWOOD SAWYER Temperature 36.8 ??C (98.2 ??F) 12/01/2018 9:31 AM HARDWOOD SAWYER Respiratory Rate - - Oxygen Saturation 93% 12/01/2018 9:31 AM HARDWOOD SAWYER Inhaled Oxygen Concentration - - Weight 113.9 kg (251 lb 1.6 oz) 12/01/2018 9:31 AM HARDWOOD SAWYER Height - - Body Mass Index 39.33 11/15/2018 1:03 PM HARDWOOD SAWYER documented in this encounter Progress Notes Bhanu Godoy MD - 12/01/2018 9:30 AM CST SUBJECTIVE: Alphonso Culver is a 53 year old female who presents to clinic today for the following health issues: Patient is here to follow up on her lab results. ED/UC Followup: Facility: [facility] Emergency Department Date of visit: 11/27/18 Reason for visit: flank pain Current Status: not any better Paroxysmal ventricular tachycardia (H) (primary encounter diagnosis) Zio patch almost a year ago showed a brief run of V. tach much more supraventricular tachycardia. Syncope, unspecified syncope type Patient discussed passing out on 11/26 and hit her head on the dresser. She reported that she felt like she was going to pass out and tried to prevent it by laying on the ground. Migraine without aura and without status migrainosus, not intractable. She takes Excedrin migraine daily used sheused . She believes that her to follow with neurology. At the last visit she was given dihydroergotamine. She finds sumatriptan injection ineffective Insomnia, unspecified type she wonders if she can have a pain medicine to help her sleep. She reports that pain wakes her up Hypertension, unspecified type BP Readings from Last 6 Encounters: 12/01/18 137/84 11/27/18 (!) 143/100 11/15/18 133/74 01/06/18 136/78 08/29/17 145/88 07/23/13 97/57 Because of her history Of flushing and episodes of hypertension she was recently evaluated for pheochromocytoma with negative results., Nephrolithiasis she has quite a bit of renal calcifications. She was told by her urologist at the last surgery the most of these were encapsulated within the kidney stroma. Dietary evaluation and 24-hour urines was suggested, but her opinion is that these calcifications reflect lifestyle issues of thepast now resolved Flank Pain: Patient discussed her inability to sit on couch due to her pain, laying on bed w/ heating pad helped. Reports that she experiences pain all time and everywhere. This has been attributed to degenerating disks in her back in the past. The pain is variable and mobile Problem list and histories reviewed & adjusted, as indicated. Additional history: as documented PAST MEDICAL HISTORY: Past Medical History: Diagnosis Date ??? Ankle impingement syndrome ??? Anxiety ??? Chronic abdominal pain 07/23/2013 ??? Hypertension, unspecified type 11/16/2018 ??? Migraine ??? Migraine headache 03/25/2013 ??? Mild major depression (H) 11/16/2018 ??? Morbid obesity (H) 11/16/2018 ??? Narcotic withdrawal (H) 07/21/2013 ??? Nephrolithiasis ??? Pancreatitis 3 episode 1996- 2004 ??? Shoulder impingement syndrome ??? Syncope 01/06/2018 ??? Thyroid disease PAST SURGICAL HISTORY: Past Surgical History: Procedure Laterality Date ??? CHOLECYSTECTOMY 1993 ??? FRUIT HARVEST MACHINE OPERATOR SURGERY hysterectomy ??? HC UGI ENDOSCOPY W EUS 05/04/2013 Procedure: COMBINED ENDOSCOPIC ULTRASOUND, ESOPHAGOSCOPY, GASTROSCOPY, DUODENOSCOPY (EGD); Surgeon:Greta Joel MD; Location: [facility] ??? ORTHOPEDIC SURGERY cervical spine fusion FAMILY HISTORY: Family History Problem Relation Age of Onset ??? C.A.D. Father ??? Respiratory Father lung fibrosis ??? Cerebrovascular Disease Father ??? Diabetes Brother ??? Diabetes Sister ??? Diabetes Brother ??? Diabetes Brother SOCIAL HISTORY: Social History Tobacco Use ??? Smoking status: Never Smoker ??? Smokeless tobacco: Never Used Substance Use Topics ??? Alcohol use: Yes Comment: 3-4 drinks per month Reviewed and updated as needed this visit by clinical staff Reviewed and updated as needed this visit by Provider ROS: No synovitis no fevers current flank pain is actually just above the right buttocks This document serves as a record of the services and decisions personally performed and made by Bhanu Godoy MD. It was created on his behalf by Lauryn Ma, a trained medical office professional instructor. The creation ofthis document is based on the provider's statements to the medical office professional instructor. Lauryn Ma December 01, 2018 10:36 AM OBJECTIVE: BP 137/84 (BP Location: Right arm, Patient Position: Chair, Cuff Size: Adult Large) Pulse 97 Temp 98.2 ??F (36.8 ??C) (Oral) Wt 113.9 kg (251 lb 1.6 oz) SpO2 93% BMI 39.33 kg/m?? Body mass index is 39.33 kg/m??. MS: no gross musculoskeletal defects noted, no edema*no synovitis NEURO: mentation intact and speech normal Diagnostic Test Results: No results found for this or any previous visit (from the past 24 hour(s)). ASSESSMENT/PLAN: (I47.2) Paroxysmal ventricular tachycardia (H) (primary encounter diagnosis) Comment: With syncope. I believe this should be revisited Plan: CARDIOLOGY EVAL ADULT REFERRAL (R55) Syncope, unspecified syncope type Comment: She has been treating these episodes as vasovagal per previous instruction Plan: CARDIOLOGY EVAL ADULT REFERRAL (M79.7) Fibromyalgia Comment: postulated Plan: RHEUMATOLOGY REFERRAL Shaun heat. Formal evaluation will be fruitful. We are going to refer her for gene site testing before we start adjusting her current duloxetine and gabapentin as per her desire for pain medication., Opioids are contraindicated (G43.009) Migraine without aura and without status migrainosus, not intractable Comment: Potentially transformed. The use of rebound inducing agents is not recommended Plan: ZOLMitriptan (ZOMIG) 5 MG tablet, SUMAtriptan (IMITREX) 5 MG/ACT nasal spray Advised to stop using Excedrin (G47.00) Insomnia, unspecified type Comment: disc she might benefit from a sleep referral in the future. At this time Plan: zolpidem (AMBIEN) 5 MG tablet The information in this document, created by the medical office professional instructor for me, accurately reflects the services I personally performed and the decisions made by me. I have reviewed and approved this document for accuracy prior to leaving the patient care area. December 01, 2018 10:14 AM Bhanu Godoy MD [facility] documented in this encounter Plan of Treatment Scheduled Referrals Name Type Priority Associated Diagnoses Order S chedule CARDIOLOGY EVAL ADULT Referral Routine Paroxysmal ventricu lar Ordered: 12/01/2018 REFERRAL tachycardia (H) Syncope, unspecified syncope type RHEUMATOLOGY REFERRAL Referral Routine Fibromyalgia Ordere d: 12/01/2018 documented as of this encounter Visit Diagnoses Diagnosis Paroxysmal ventricular tachycardia - Dana kathi Syncope, unspecified syncope type Fibromyalgia Mylagia and myositis, unspecified Migraine without aura and without status migrainosus, not intractable Migraine without aura, without mention o f intractable migraine without mention of status migrainosus Insomnia, unspecified type Hypertension, unspecified type Nephrolithiasis Calculus of kidney documented in this encounter Additional Health Concerns Assessment Noted Time PHQ-9 Depression Total Score: 15 11/15/2018 3:49 PM CS T documented as of this encounter Care Teams Wheel Tuner Relationship Specialty Start Date End Date No Ref-Primary, Physician PCP - General 11/15/18 12/20/18 Bhanu Godoy MD PCP - Assigned PCP 10/20/18 12/27/18 [address] [place], [place] [id number] Bhanu Godoy MD Assigned PCP 10/20/18 02/28/22 [address] [place], [place] [phone] documented as of this encounter
--- OUTSIDE RECORDS SUMMARY | 2022-08-10 10:54 | XMS_ITS | Encounter Summary ---
:1965 Author Organization [place] Address [address] [place] [address] Care Team Providers Name Role Phone Bhanu Godoy MD Primary Care Provider Bhanu Godoy MD Unavailable Encounter Details Date Type Department Care Team Description 02/23/2019 Travel Social History Tobacco Use Types Packs/Day [...] documented as of this encounter Care Teams Negotiator Relationship Specialty Start Date End Date Bhanu Godoy MD PCP - General Family Practice 12/21/18 01/01/20 [address] [place], [place] [id number] Bhanu Godoy MD Assigned PCP 10/20/18 02/28/22 [address] [place] [address] documented as of this encounter
--- OUTSIDE RECORDS SUMMARY | 2022-08-10 10:54 | XMS_ITS | Encounter Summary ---
:1965 Author Organization [facility] Address [address] [place] [address] Care Team Providers Name Role Phone No Ref-Primary, Physician Primary Care Provider Bhanu Godoy MD Unavailable Bhanu Godoy MD Unavailable Reason for Visit Reason Onset Date Comments Results 12/12/2018 Event recorder for s yncope and collapse Encounter Details Date Type Department Care Team Description 12/12/2018 Telephone [facility] Heart Nori Wright, Results (Event recorder Clinic Luz Elena RN for syncope and [address] collapse) [facility] [address] [place] [address] Social History Tobacco Use Types [...] Encounter - Nori Wright RN - 12/12/2018 3:50 PM CST Event recorder baseline strip SR rate 88. Strip in folder. K CLIPPER documented in this encounter Plan of Treatment Not on filedocumented as of this encounter Visit Diagnoses Not on filedocumented in this encounter Additional Health Concerns Assessment Noted Time PHQ-9 Depression Total Score: 15 11/15/2018 3:49 PM CS T documented as of this encounter Care Teams Machine Shop Lead Man Relationship Specialty Start Date End Date No Ref-Primary, Physician PCP - General 11/15/18 12/20/18 Bhanu Godoy MD PCP - Assigned PCP 10/20/18 12/27/18 [address] [place] [address] Bhanu Godoy MD Assigned PCP 10/20/18 02/28/22 [address] [place], [place] [id number] documented as of this encounter
--- OUTSIDE RECORDS SUMMARY | 2022-08-10 10:54 | XMS_ITS | Encounter Summary ---
:1965 Author Organization [place] Address [address] [place] [address] Care Team Providers Name Role Phone Bhanu Godoy MD Primary Care Provider Bhanu Godoy MD Unavailable Encounter Details Date Type Department Care Team Description 03/03/2019 [facility] Zen Dove (Primary Dx); Clinic Dayrubio Joseph MD Positive ZAINAB (antinuclear antibody) [address] [place] [address] [place] [address] [place] [address] Social History Tobacco Use Types Packs/Day Years [...] as of this encounter Visit Diagnoses Diagnosis Fibromyalgia - Primary Mylagia and myositis, unspecified Positive ZAINAB (antinuclear antibody) Other and unspecified nonspecific immuno logical findings documented in this encounter Additional Health Concerns Assessment Noted Time PHQ-9 Depression Total Score: 15 11/15/2018 3:49 PM CS T documented as of this encounter Care Teams Breaker Hand Relationship Specialty Start Date End Date Bhanu Godoy MD PCP - General Family Practice 12/21/18 01/01/20 [address] [place] [address] Bhanu Godoy MD Assigned PCP 10/20/18 02/28/22 [address] [place] [address] documented as of this encounter
--- OUTSIDE RECORDS SUMMARY | 2022-08-10 10:54 | XMS_ITS | Encounter Summary ---
:1965 Author Organization [place] Address [address] [place] [address]. [place] [address] Care Team Providers Name Role Phone Bhanu Godoy MD Primary Care Provider Bhanu Godoy MD Unavailable Reason for Visit Reason Comments GeneSight GeneSight testing Encounter Details Date Type Department Care Team Description 02/09/2019 Office Visit [facility] Greta Holman, Mild major depression (H) (Primary Dx); Clinic [place] PA-C Anxiety; [address] [place] [address] [place] [address] [id number] (Wo rk) Social History Tobacco Use Types [...] Sign Reading Time Taken Comments Blood Pressure 114/78 02/09/2019 9:28 AM CDT Pulse 106 02/09/2019 9:28 AM CDT Temperature 36.5 ??C (97.7 ??F) 02/09/2019 9:28 AM CDT Respiratory Rate 12 02/09/2019 9:28 AM CDT Oxygen Saturation - - Inhaled Oxygen Concentration - - Weight 112.9 kg (249 lb) 02/09/2019 9:28 AM CDT Height - - Body Mass Index 39 12/28/2018 8:10 AM AIRCREWMAN documented in this encounter Progress Notes Greta Holman PA-C - 02/09/2019 9:30 AM CDT SUBJECTIVE: Alphonso Culver is a 54 year old female who presents to clinic today for the following health issues: Patient in clinic today for GeneSight testing. Patient with depression, anxiety and chronic abdominal pain. Additional history: as documented Reviewed and updated as needed this visit by clinical staff Tobacco Allergies Meds Med Hx Surg Hx Fam Hx Soc Hx Reviewed and updated as needed this visit by Provider Patient Active Problem List Diagnosis ??? Migraine headache ??? Chronic abdominal pain ??? Syncope ??? Hypertension, unspecified type ??? Hx of pancreatitis ??? Mild major depression (H) ??? Morbid obesity (H) ??? Anxiety ??? Nephrolithiasis Past Surgical History: Procedure Laterality Date ??? CHOLECYSTECTOMY 1992 ??? CASING BUILDER SURGERY hysterectomy ??? [facility] ENDOSCOPY W EUS 05/04/2013 Procedure: COMBINED ENDOSCOPIC ULTRASOUND, ESOPHAGOSCOPY, GASTROSCOPY, DUODENOSCOPY (EGD); Surgeon:Greta Joel MD; Location: [facility] ??? ORTHOPEDIC SURGERY cervical spine fusion Social History Tobacco Use ??? Smoking status: Never Smoker ??? Smokeless tobacco: Never Used Substance Use Topics ??? Alcohol use: Yes Frequency: Monthly or less Comment: not very often Family History Problem Relation Age of Onset ??? C.A.D. Father ??? Respiratory Father lung fibrosis ??? Cerebrovascular Disease Father ??? Pacemaker Father 75 ??? Diabetes Brother ??? Diabetes Sister ??? Pacemaker Sister 45 Had a pacemaker and defibrillator placed at age 45 for idiopathic dilated cardiomyopathy ??? Cardiomyopathy Sister ??? Diabetes Brother ??? Diabetes Brother ROS: Constitutional, HEENT, cardiovascular, pulmonary, gi and gu systems are negative, except as otherwise noted. OBJECTIVE: BP 114/78 (BP Location: Right arm, Patient Position: Chair, Cuff Size: Adult Large) Pulse 106 Temp 97.7 ??F (36.5 ??C) (Oral) Resp 12 Wt 112.9 kg (249 lb) BMI 39.00 kg/m?? Body mass index is 39 kg/m??. GENERAL APPEARANCE: healthy, alert and no distress RESP: lungs clear to auscultation - no rales, rhonchi or wheezes CV: regular rates and rhythm, normal S1 S2, no S3 or S4 and no murmur, click or rub PSYCH: mentation appears normal and affect normal/bright Diagnostic Test Results: none ASSESSMENT/PLAN: ICD-10-CM 1. Mild major depression (H) F32.0 2. Anxiety F41.9 3. Chronic abdominal pain R10.9 G89.29 Patient agreeable to [employer] testing. F/u with PCP in 7-14 days for results review. Greta Holman PA-C [facility] documented in this encounter Plan of Treatment Not on filedocumented as of this encounter Visit Diagnoses Diagnosis Mild major depression (H) - Primary Major depressive disorder, single episod e, mild Anxiety Anxiety state, unspecified Chronic abdominal pain Abdominal pain, unspecified site documented in this encounter Additional Health Concerns Assessment Noted Time PHQ-9 Depression Total Score: 15 11/15/2018 3:49 PM CS T documented as of this encounter Care Teams New Home Sales Consultant Relationship Specialty Start Date End Date Bhanu Godoy MD PCP - General Family Practice 12/21/18 01/01/20 [address] [place], [place] [id number] Bhaun Godoy MD Assigned PCP 10/20/18 02/28/22 [address] [place], [place] [id number] documented as of this encounter
--- OUTSIDE RECORDS SUMMARY | 2022-08-10 10:54 | XMS_ITS | Encounter Summary ---
:1965 Author Organization [place] Address [address] [place] [address] Care Team Providers Name Role Phone No Ref-Primary, Physician Primary Care Provider [phone] Bhanu Godoy MD Unavailable Bhanu Godoy MD Unavailable Reason for Referral CV Testing - Closed Specialty Diagnoses / Procedures Referred By Contact Refer red To Contact Cardiology Diagnoses Syncope, unspecified syncope type NSVT (nonsustained ventricular tachycardia) Benign essential hypertension Leroy Agrawal, Rh Cv Cardiac Svc Rscc Procedures Cardiac Event Monitor Adult Pediatric C AMB BP MONITORING >=24 HR, RECORD/SCAN/INTRP/RPT HC HOLTER RECORDING 24 HRS HC HOLTER SCAN 24 [address] [place], [place] [address] [place] [address] Phone: Fax: Referral ID Status Reason Start Date Expiration Date Visits Requ ested Visits Authorized [id number] Closed 12/08/2018 12/08/2019 1 1 KET CUTTING MACHINE OPERATOR Reason for Visit CV Testing - Closed Specialty Diagnoses / Procedures Referred By Contact Refer red To Contact Cardiology Diagnoses Syncope, unspecified syncope type NSVT (nonsustained ventricular tachycardia) Benign essential hypertension Leroy Agrawal, Rh Cv Cardiac Svc Rscc Procedures Cardiac Event Monitor Adult Pediatric C AMB BP MONITORING >=24 HR, RECORD/SCAN/INTRP/RPT HC HOLTER RECORDING 24 HRS HC HOLTER SCAN [address] HRS [address] [place], [place] [address] [place] [address] Phone: Fax: Referral ID Status Reason Start Date Expiration Date Visits Requ ested Visits Authorized [id number] Closed 12/08/2018 12/08/2019 1 1 Encounter Details Date Type Department Care Team Description 12/08/2018 Hospital Encounter [facility] Leroy Agrawal Sy ncope, unspecified syncope type; [facility] MD Jackeline NSVT (nonsustained ventricular tachycard ia) (H); [facility] [address] [place] [address] [place] [address] [place] [address] Social History Tobacco Use Types Packs/Day Years [...] on file documented as of this encounter Medications at Time of Discharge Medication Sig Dispensed Refills Start Date End Date acetaminophen-caffeine Take 2 tablets by 0 (EXCEDRIN TENSION HEADACHE) mouth 500-65 MG TABS ycwetcn-ncxpuvbmkvvrf-caotmp Take 2 tablets by 0 ne (EXCEDRIN MIGRAINE) mouth every 8 250-250-65 MG per tablet hours as needed GABAPENTIN PO Take 600 mg by 0 mouth 3 times daily hydrochlorothiazide TAKE 1 TABLET BY 10 10/05/2018 (HYDRODIURIL) 25 MG tablet MOUTH DAILY NEEDED FOR LEG SWELLING hydrOXYzine (ATARAX) 50 MG Take 50 mg by 0 tablet mouth 3 times daily as needed for itching levothyroxine Take 200 mcg by 0 (SYNTHROID/LEVOTHROID) 200 mouth daily MCG tablet meloxicam (MOBIC) 15 MG Take 15 mg by 0 tablet mouth daily metoprolol succinate ER Take 100 mg by 3 10/07/20 18 (TOPROL-XL) 100 MG 24 hr mouth daily tablet VITAMIN D, CHOLECALCIFEROL, Take 2,000 Units 0 PO by mouth daily. DULoxetine (CYMBALTA) 60 MG Take 60 mg by 0 02/23/2019 capsule mouth 2 times daily ondansetron (ZOFRAN ODT) 4 Take 1 tablet (4 10 tablet 0 12/201803/01/2019 MG ODT tab mg) by mouth every 8 hours as needed for nausea SUMAtriptan (IMITREX) 25 MG Take 25 mg by 0 02/09/2019 tablet mouth at onset of headache for migraine SUMAtriptan (IMITREX) 5 [place] 1 spray in 3 each 3 201802/09/2019 MG/ACT nasal nostril as needed sprayIndications: Migraine for migraine without aura and without status migrainosus, not intractable ZOLMitriptan (ZOMIG) 5 MG Take 1 tablet (5 18 tablet 1 04/201902/09/2019 tabletIndications: Migraine mg) by mouth at without aura and without onset of headache status migrainosus, not for migraine intractable zolpidem (AMBIEN) 5 MG Take 1 tablet (5 30 tablet 1 019 02/01/2019 tabletIndications: Insomnia, mg) by mouth unspecified type nightly as needed for sleep documented as of this encounter Progress Notes Bella Karimi - 12/08/2018 3:27 PM CST Event monitor set up. KET CUTTING MACHINE OPERATOR documented in this encounter Plan of Treatment Not on filedocumented as of this encounter Procedures Procedure Name Priority Date/Time Associated Diagnosis Comme nts CARDIAC EVENT MONITOR Routine 12/08/2018 3:29 Syncope, unspeci fied Results for this APPLICATION AND PM BLANKET CUTTING MACHINE OPERATOR syncope type procedure are in PROVIDER NSVT (nonsustained the resul ts INTERPRETATION ventricular section. tachycardia) (H) Benign essential hypertension documented in this encounter Results CARDIAC EVENT MONITOR APPLICATION AND PROVIDER INTERPRETATION (12/08/2018 3:29 PM BLANKET CUTTING MACHINE OPERATOR) Anatomical Region Laterality Modality Other Specimen (Source) Anatomical Location Collection Method / Collectio n Time Received Time / Laterality Volume Narrative This result has an attachment that is no t available. Leroy Agrawal MD CV CARDIAC SERVICES ORDERABL ES documented in this encounter Visit Diagnoses Diagnosis Syncope, unspecified syncope type NSVT (nonsustained ventricular tachycard ia) Paroxysmal ventricular tachycardia Benign essential hypertension Essential hypertension, benign documented in this encounter Additional Health Concerns Assessment Noted Time PHQ-9 Depression Total Score: 15 11/15/2018 3:49 PM CS T documented as of this encounter Care Teams Signal Fitter Relationship Specialty Start Date End Date No Ref-Primary, Physician PCP - General 11/15/18 12/20/18 Bhanu Godoy MD PCP - Assigned PCP 10/20/18 12/27/18 [address] [place], [place] [phone] Bhanu Godoy MD Assigned PCP 10/20/18 02/28/22 [address] [place], [place] [phone] documented as of this encounter
--- OUTSIDE RECORDS SUMMARY | 2022-08-10 10:54 | XMS_ITS | Encounter Summary ---
:1965 Author Organization [place] Address [address] [facility] [place] [address] Care Team Providers Name Role Phone Bhanu Godoy MD Primary Care Provider Bhanu Godoy MD Unavailable Reason for Visit Reason Comments Syncope - Closed Specialty Diagnoses / Procedures Referred By Contact Refer red To Contact Diagnoses Syncope, unspecified syncope type NSVT (nonsustained ventricular tachycardia) Benign essential hypertension Leroy Agrawal MD [address] [place], [place] [address] Referral ID Status Reason Start Date Expiration Date Visits Requ ested Visits Authorized [id number] Closed 12/08/2018 12/08/2019 1 1 Encounter Details Date Type Department Care Team Description 12/28/2018 Office Visit [facility] Leroy Agrawal MD [address] [place] [address] Syncope, unspecified syncope type; [facility] Caitlyn Echevarria MD [address] [facility] [address] [facility] [place] [place] [address] NSVT (nonsustained ventricular tachycard ia) (H); [facility] [place] [address] [facility] [address] [place] [address] Social History Tobacco Use Types Packs/Day [...] Sign Reading Time Taken Comments Blood Pressure 126/82 12/28/2018 8:10 AM AQUARIUM TANK ATTENDANT Pulse 92 12/28/2018 8:10 AM AQUARIUM TANK ATTENDANT Temperature - - Respiratory Rate - - Oxygen Saturation - - Inhaled Oxygen Concentration - - Weight 113.8 kg (250 lb 14.4 oz) 12/28/2018 8:10 AM AQUARIUM TANK ATTENDANT Height 170.2 cm (5' 7) 12/28/2018 8:10 AM AQUARIUM TANK ATTENDANT Body Mass Index 39.3 12/28/2018 8:10 AM AQUARIUM TANK ATTENDANT documented in this encounter Progress Notes Caitlyn Echevarria MD - 12/28/2018 9:05 AM CST Service Date: 12/28/2018 HISTORY OF PRESENT ILLNESS: I saw Ms. Culver for evaluation of recurrent syncope. She is a 53-year-old white female with a history of hypertension. Around 12/2017 when she was sitting on the toilet watching her grandchildren, she felt severely dizzy and passed out twice in the bathroom. She was brought to the ER and had another spell of syncope while she was in a sitting position at the triage. The patient was subsequently evaluated at [facility]. She had echocardiography and EKG which were both normal. She was put on EKG event monitor that detected short-lasting nonsustained VTs a couple of times. She was asymptomatic during the nonsustained VT. About a few weeks ago she had another s parris of syncope in a standing position. All spells were preceded by brief and severe dizziness. She did not have chest pain, palpitation or shortness of breath. She was put on a cardiac event monitor about 3 weeks ago. When she was on the monitor, she reported 1 episode of near-syncope. The EKG duringthat time showed normal sinus rhythm. PAST MEDICAL HISTORY: Remarkable for migraine headache, chronic back pain, hypothyroidism. PHYSICAL EXAMINATION: VITAL SIGNS: Blood pressure was 126/82, heart rate 92 beats per minute, body weight 250 pounds. HEENT: Eyes and ENT were unremarkable. LUNGS: Clear. CARDIAC: Rhythm was regular, and the heart sounds were normal with no murmur. ABDOMEN: Showed moderate obesity. EXTREMITIES: There was no pedal edema. EKG showed normal sinus rhythm. Her cardiac MRI showed normal cardiac structure with no evidence of scar. ASSESSMENT AND RECOMMENDATIONS: Ms. Culver is a 53-year-old white female with history of hypertension. She had recurrent syncope initially around 12/2017. It appeared to me that her syncopal episodes occurred in a burst fashion. Her recent near-syncope was not correlated with apparent cardiac arrhythmia. Her nonsustained VTs were not associated with symptoms. It is my strong suspicion that she hasvasovagal syncope. Based on that, I would not recommend further testing. She is advised to take a supine position as soon as possible upon detection of the warning symptoms in the near future. If she continues to have frequent unexplained syncope, I would then consider the implantable loop recorder. cc: [place] [address] CAITLYN ECHEVARRIA MD MT: SARATH Name: RICHAR CULVER MRN: [id number] Account: [id number] : 1965 Service Date: 12/28/2018 Document: [id number] RIUM TANK ATTENDANT Caitlyn Echevarria MD - 12/28/2018 8:15 AM CST HPI and Plan: See dictation Orders Placed This Encounter Procedures ??? EKG 12-lead complete w/read - Clinics (performed today) No orders of the defined types were placed in this encounter. There are no discontinued medications. Encounter Diagnoses Name Primary? Syncope, unspecified syncope type ??? NSVT (nonsustained ventricular tachycardia) (H) ??? Benign essential hypertension CURRENT MEDICATIONS: Current Outpatient Medications Medication Sig Dispense Refill ??? wdgnbyg-dkmovachajwdb-aztoabzj (EXCEDRIN MIGRAINE) 250-250-65 MG per tablet Take 2 tablets by mouth every 8 hours as needed ??? DULoxetine (CYMBALTA) 60 MG capsule Take 60 mg by mouth 2 times daily ??? GABAPENTIN PO Take 600 mg by mouth 3 times daily ??? hydrochlorothiazide (HYDRODIURIL) 25 MG tablet TAKE 1 TABLET BY MOUTH DAILY NEEDED FOR LEG SWELLING 10 ??? hydrOXYzine (ATARAX) 50 MG tablet Take 50 mg by mouth 3 times daily as needed for itching ??? levothyroxine (SYNTHROID/LEVOTHROID) 200 MCG tablet Take 200 mcg by mouth daily ??? meloxicam (MOBIC) 15 MG tablet Take 15 mg by mouth daily ??? metoprolol succinate ER (TOPROL-XL) 100 MG 24 hr tablet Take 100 mg by mouth daily 3 ??? ondansetron (ZOFRAN ODT) 4 MG ODT tab Take 1 tablet (4 mg) by mouth every 8 hours as needed for nausea 10 tablet 0 ??? SUMAtriptan (IMITREX) 25 MG tablet Take 25 mg by mouth at onset of headache for migraine ??? SUMAtriptan (IMITREX) 5 MG/ACT nasal spray Hunker 1 spray in nostril as needed for migraine 3 each 3 ??? VITAMIN D, CHOLECALCIFEROL, PO Take 2,000 Units by mouth daily. ??? zolpidem (AMBIEN) 5 MG tablet Take 1 tablet (5 mg) by mouth nightly as needed for sleep 30 tablet 1 ??? acetaminophen-caffeine (EXCEDRIN TENSION HEADACHE) 500-65 MG TABS Take 2 tablets by mouth ??? ZOLMitriptan (ZOMIG) 5 MG tablet Take 1 tablet (5 mg) by mouth at onset of headache for migraine(Patient not taking: Reported on 12/28/2018) 18 tablet 1 ALLERGIES No Known Allergies PAST MEDICAL HISTORY: Past Medical History: Diagnosis Date ??? Ankle impingement syndrome ??? Anxiety ??? Chronic abdominal pain 07/23/2013 ??? Hypertension, unspecified type 11/16/2018 ??? Hypothyroidism ??? Migraine ??? Mild major depression (H) 11/16/2018 ??? Morbid obesity (H) 11/16/2018 ??? Narcotic withdrawal (H) 07/21/2013 ??? Nephrolithiasis ??? Pancreatitis 3 episode 1996- 2004 ??? Shoulder impingement syndrome ??? Syncope 01/06/2018 PAST SURGICAL HISTORY: Past Surgical History: Procedure Laterality Date ??? CHOLECYSTECTOMY 1992 ??? CHIEF METEOROLOGIST SURGERY hysterectomy ??? HC UGI ENDOSCOPY W [...] ??? Diabetes Brother SOCIAL HISTORY: Social History Socioeconomic History ??? Marital status: Spouse name: None ??? Number of children: None ??? Years of education: None ??? Highest education level: None Occupational History ??? None Social Needs ??? Financial resource strain: None ??? Food insecurity: Worry: None Inability: None ??? Transportation needs: Medical: None Non-medical: None Tobacco Use ??? Smoking status: Never Smoker ??? Smokeless tobacco: Never Used Substance and Sexual Activity ??? Alcohol use: Yes Frequency: Monthly or less Comment: not very often ??? Drug use: No ??? Sexual activity: Yes Lifestyle ??? Physical activity: Days per week: None Minutes per session: None ??? Stress: None Relationships ??? Social connections: Talks on phone: None Gets together: None Attends buddhism service: None Active member of club or organization: None Attends meetings of clubs or organizations: None Relationship status: None ??? Intimate partner violence: Fear of current or ex partner: None Emotionally abused: None Physically abused: None Forced sexual activity: None Other Topics Concern ??? Parent/sibling w/ CABG, CT or angioplasty before 65F 55M? Not Asked Social History Narrative Lives in [place] with her and adult son and teenage daughter. She is not working outsideher home. She was terminated at her 3 most recent jobs due to her frequent severe migraine headaches. 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 She is able to walk and do house chores slowly with frequent breaks. If she pushes herself she has moderate to severe pain in her neck extending to the arms. Her migraines have been greatly improvedsince her cervical spine surgery. She applied for disability due to the migraines and neck pain but was denied and is in the process of appeal. Review of Systems: Skin: Positive for rash from [place] Eyes: Positive for glasses ENT: Positive for trouble swollowing sometimes from fusions in neck Respiratory: Positive for dyspnea on exertion SOB with stairs and exertion and a few times a week randomly SOB Cardiovascular: Positive for;palpitations;lightheadedness;dizziness;fatigue Swelling below the knees Gastroenterology: Positive for diarrhea;nausea occ Genitourinary: Negative Musculoskeletal: Positive for back pain;arthritis;joint pain;neck pain DDD mid back; shoulders Neurologic: Positive for migraine headaches;numbness or tingling of hands tingling hands and arms Psychiatric: Positive for sleep disturbances;excessive stress;anxiety;depression currently takes meds and possible SAD Heme/Lymph/Imm: Negative Endocrine: Positive for thyroid disorder Physical Exam: Vitals: BP 126/82 (BP Location: Right arm, Patient Position: Chair, Cuff Size: Adult Large) Pulse 92 Ht 1.702 m (5' 7) Wt 113.8 kg (250 lb 14.4 oz) BMI 39.30 kg/m?? Constitutional: cooperative, alert and oriented, well developed, well nourished, in no acute distress Skin: warm and dry to the touch, no apparent skin lesions or masses noted Head: normocephalic, no masses or lesions Eyes: pupils equal and round, conjunctivae and lids unremarkable, sclera white, no xanthalasma, EOMSintact, no nystagmus Lymph:No Cervical lymphadenopathy present ENT: no pallor or cyanosis, dentition good Neck: carotid pulses are full and equal bilaterally, JVP normal, no carotid bruit Respiratory: normal breath sounds, clear to auscultation, normal A-P diameter, normal symmetry, normal respiratory excursion, no use of accessory muscles Cardiac: regular rhythm, normal S1/S2, no S3 or S4, apical impulse not displaced, no murmurs, gallops or rubs GI: abdomen soft, non-tender, BS normoactive, no mass, no HSM, no bruits Extremities and Muscular Skeletal: no deformities, clubbing, cyanosis, erythema observed Neurological: no gross motor deficits Psych: Alert and Oriented x 3 [facility] [place] Jackeline Agrawal MD [address] [place] [address] RIUM TANK ATTENDANT documented in this encounter Plan of Treatment Not on filedocumented as of this encounter Procedures Procedure Name Priority Date/Time Associated Diagnosis Comme nts EKG 12-LEAD Routine 12/28/2018 11:03 Syncope, unspecified Res ults for this COMPLETE W/READ - AM AQUARIUM TANK ATTENDANT syncope type procedure are in CLINICS NSVT (nonsustained the resul ts ventricular section. tachycardia) (H) Benign essential hypertension documented in this encounter Results EKG 12-lead complete w/read - Clinics (performed today) (12/28/2018 11:03 AM AQUARIUM TANK ATTENDANT) Narrative This result has an attachment that is no t available. Caitlyn Echevarria MD ECG ORDERABLES documented in this encounter Visit Diagnoses Diagnosis Syncope, unspecified syncope type NSVT (nonsustained ventricular tachycard ia) Paroxysmal ventricular tachycardia Benign essential hypertension Essential hypertension, benign documented in this encounter Additional Health Concerns Assessment Noted Time PHQ-9 Depression Total Score: 15 11/15/2018 3:49 PM CS T documented as of this encounter Care Teams Varnish Melter Helper Relationship Specialty Start Date End Date Bhanu Godoy MD PCP - General Family Practice 12/21/18 01/01/20 [address] [place], [place] [id number] Bhanu Godoy MD Assigned PCP 10/20/18 02/28/22 [address] [place], [place] [id number] documented as of this encounter
--- OUTSIDE RECORDS SUMMARY | 2022-08-10 10:54 | XMS_ITS | Encounter Summary ---
:1965 Author Organization [place] Address [address] [place] [address] Care Team Providers Name Role Phone Bhanu Godoy MD Primary Care Provider Bhanu Godoy MD Unavailable Encounter Details Date Type Department Care Team Description 02/09/2019 Travel Social History Tobacco Use Types Packs/Day [...] documented as of this encounter Care Teams Care Transitions Nurse Relationship Specialty Start Date End Date Bhanu Godoy MD PCP - General Family Practice 12/21/18 01/01/20 [address] [place], [place] [id number] Bhanu Godoy MD Assigned PCP 10/20/18 02/28/22 [address] [place] [address] documented as of this encounter
--- OUTSIDE RECORDS SUMMARY | 2022-08-10 10:54 | XMS_ITS | Encounter Summary ---
:1965 Author Organization [place] Address [address] [place] [address]. [place] [address] Care Team Providers Name Role Phone Bhanu Godoy MD Primary Care Provider Bhanu Godoy MD Unavailable Reason for Visit Reason Comments Clinic Care Coordination - Follow-up End of Service [facility] - Event monitor - to Dr Agrawal for signature Encounter Details Date Type Department Care Team Description 01/09/2019 Care Coordination [facility] Nesha Mckeon [facility] Luz Elena Hardy RN Coordination - [address] [facility] Follow-up ( [facility] [address] Service Summary - [place] [id number] Event monitor - to [phone] [place]ghia for signat ure) Social History Tobacco Use Types Packs/Day Years [...] on file documented as of this encounter Progress Notes Nesha Mckeon RN - 01/09/2019 11:31 AM CDT End of Service Summary - Event monitor - to Dr Agrawal for signature. Hayley Jeffries RN 01/09/19 11:31 AM documented in this encounter Plan of Treatment Not on filedocumented as of this encounter Visit Diagnoses Not on filedocumented in this encounter Additional Health Concerns Assessment Noted Time PHQ-9 Depression Total Score: 15 11/15/2018 3:49 PM CS T documented as of this encounter Care Teams Ic Design Engineer Relationship Specialty Start Date End Date Bhanu Godoy MD PCP - General Family Practice 12/21/18 01/01/20 [address] [place], [place] [id number] Bhanu Godoy MD Assigned PCP 10/20/18 02/28/22 [address] [place], [place] [id number] documented as of this encounter
--- OUTSIDE RECORDS SUMMARY | 2022-08-10 10:54 | XMS_ITS | Encounter Summary ---
:1965 Author Organization [facility] Address [address] [place] [id number] Care Team Providers Name Role Phone Bhanu Godoy MD Unavailable Bhanu Godoy MD Primary Care Provider Bhanu Godoy MD Unavailable Reason for Referral Diagnostic Imaging MRI - Closed Specialty Diagnoses / Procedures Referred By Contact Refer red To Contact Cardiology Diagnoses Syncope, unspecified syncope type NSVT (nonsustained ventricular tachycardia) Benign essential hypertension Leroy Agrawal Sh Cv Mri Procedures MRI Cardiac w/contrast [address] [place] [phone] Referral ID Status Reason Start Date Expiration Date Visits Requ ested Visits Authorized [id number] Closed 12/19/2018 01/17/2019 1 1 [facility] Reason for Visit Diagnostic Imaging MRI - Closed Specialty Diagnoses / Procedures Referred By Contact Refer red To Contact Cardiology Diagnoses Syncope, unspecified syncope type NSVT (nonsustained ventricular tachycardia) Benign essential hypertension Leroy Agrawal Sh Cv Mri Procedures MRI Cardiac w/contrast [address] [place] [address] 5 [place] [address] Referral ID Status Reason Start Date Expiration Date Visits Requ ested Visits Authorized [id number] Closed 12/19/2018 01/17/2019 1 1 Encounter Details Date Type Department Care Team Description 12/21/2018 Hospital Encounter [facility] Higinio Agrawalgeorgie Sy ncope, unspecified syncope type; [facility] MD Jackeline NSVT (nonsustained ventricular tachycard ia) (H); [address] [facility] [address] [facility] Benign essential hypertension [address] [place] [phone] Social History Tobacco Use Types Packs/Day Years [...] Sign Reading Time Taken Comments Blood Pressure 123/88 12/21/2018 11:00 AM HEAD PASTRY CHEF Pulse - - Temperature - - Respiratory Rate - - Oxygen Saturation - - Inhaled Oxygen Concentration - - Weight - - Height - - Body Mass Index - - documented in this encounter Medications at Time of Discharge Medication Sig Dispensed Refills Start Date End Date acetaminophen-caffeine Take 2 tablets by 0 (EXCEDRIN TENSION HEADACHE) mouth 500-65 MG TABS blkreqf-bosghpicpkguh-angscz Take 2 tablets by 0 ne (EXCEDRIN [...] of headache for migraine SUMAtriptan (IMITREX) 5 [place] 1 spray in 3 each 3 201802/09/2019 [...] for sleep documented as of this encounter Plan of Treatment Not on filedocumented as of this encounter Procedures Procedure Name Priority Date/Time Associated Diagnosis Comme nts MR CARDIAC W Routine 12/21/2018 11:54 Syncope, unspecified Res ults for this CONTRAST AM HEAD PASTRY CHEF syncope type procedure are in NSVT (nonsustained the resul ts ventricular section. tachycardia) (H) Benign essential hypertension documented in this encounter Results MRI Cardiac w/contrast (12/21/2018 11:54 AM HEAD PASTRY CHEF) Anatomical Region Laterality Modality Cardio, SUBRAD MR BODY, UMP MR CHEST Mag netic Resonance Specimen (Source) Anatomical Collection Method Collection Time Re ceived Time Location / / Volume Laterality 12/21/2018 10:40 AM HEAD PASTRY CHEF Narrative 12/21/2018 2:18 PM HEAD PASTRY CHEF ?[facility] ? CMR Report ??MRN: ?[id number] ?Name: ? RICHAR CULVER ?: ?1965-0 3-14 ?Scan Date: ?? 2018-12-21 10:40:11 ?Electronically signed by Erica Gonzalez 14:18:31 SUMMARY Clinical history: syncope, NSVT Comparison CMR: none 1. The LV is normal in cavity size and w all thickness. The global systolic function is normal. The LVEF is 61 %. There are no regional wall motion abnormalities. 2. The RV is normal in cavity size. The global systolic function is normal. The RVEF is 60 %. 3. Both atria are normal in size. 4. Mild aortic regurgitation. 5. Late gadolinium enhancement imaging s hows no AZ, fibrosis or infiltrative disease. 6. There is no pericardial effusion. 7. There is no intracardiac thrombus. CONCLUSIONS: 1. Normal LV and RV systolic functions. 2. Late gadolinium enhancement imaging s hows no AZ, fibrosis or infiltrative disease CORE EXAM MEASUREMENTS -------- ?VOLUMETRIC ANALYSIS ? . . ? LV ?? Ref erence RV ?? Reference +------+ +------+ +- -----+ + EDV ?? ml ?144 ??(96- 166) ??131 ??(81-166) ? ml/m^2 ? 64.6 ??(56-9 0) ?? 58.7 ??(53-90) ?? ESV ?? ml ? 56 ??(22- 59) ? 53 ??(15-68) ? ml/m^2 ? 25.1 ??(14-3 3) ?? 23.8 ??(11-37) ?? CO ?? L/min ? 6.95 ? 6.16 ? L/min/m^2 ??3.1 ?2.8 ? MASS g ? 79 ??(72-1 44) ? g/m^2 ? 35.4 ??(48-7 8) ? SV ?? ml ? 88 ??(57- 113) ?? 78 ??(56-108) ? ml/m^2 ? 39.5 ??(37-6 2) ?? 35.0 ??(36-60) ?? EF ?? % ? 61 ??(59- 77) ? 60 ??(55-79) ?? '------+ +------+ +- -----+ ' ?CARDIAC OUTPUT HR: ??79 BPM ?AORTIC ROOT DIMENSIONS ?AORTIC ROOT SIZE: ??Normal ANATOMY -------- ?LEFT VENTRICLE ?WALL THICKNESS: ??Normal ?INTERATRIAL SEPTUM ? ATRIAL SEPTUM: ANEURYSM ?LEFT ATRIUM ?CAVITY SIZE: ??MILDLY ENLARG ED ?RIGHT ATRIUM ?CAVITY SIZE: ??MILDLY ENLARG ED VALVES -------- ?AORTIC VALVE ?AORTIC VALVE LEAFLETS: ??Tri leaflet ?AORTIC REGURGITATION: ??MILD SCAN INFO GENERAL -------- ?CONTRAST AGENT ?TYPE: ??Gadavist ?VOLUME ADMINISTERED: ??7.5 m l ?DOSAGE FOR 0.5M: ??0.03 mmol /kg ?VITALS ?HEIGHT: ??67.00 in ?WEIGHT: ??251.00 lbs ?BSA: ??2.23 m^2 ?PULSE SEQUENCES ?IR GRE - Single Shot, IR SSF P - Single Shot, T2 Turbo Spin Echo w/fat sat, SSFP Cine ?SETUP ?REASON(S) FOR SCAN: ??George em, Syncope Report generated by rehana Perrin of [employer] Procedure Note Hipolito Gonzalez MD - 12/21/2018Formattin g of this note might be different from the original. [facility] CMR Report Name: RICHAR CULVER : 1965 Scan Date: 2018-12-21 10:40:11 Electronically signed by Hipolito Gonzalez 14:18:31 SUMMARY Clinical history: syncope, NSVT Comparison CMR: none 1. The LV is normal in cavity size and w all thickness. The global systolic function is normal. The LVEF is 61 %. There are no regional wall motion abnormalities. 2. The RV is normal in cavity size. The global systolic function is normal. The RVEF is 60 %. 3. Both atria are normal in size. 4. Mild aortic regurgitation. 5. Late gadolinium enhancement imaging s hows no AZ, fibrosis or infiltrative disease. 6. There is no pericardial effusion. 7. There is no intracardiac thrombus. CONCLUSIONS: 1. Normal LV and RV systolic functions. 2. Late gadolinium enhancement imaging s hows no AZ, fibrosis or infiltrative disease CORE EXAM MEASUREMENTS -------- VOLUMETRIC ANALYSIS ------- . . LV Reference RV Reference +------+ +------+ +- -----+ + EDV ml 144 (86-166) 131 (81- 166) ml/m^2 64.6 (56-90) 58.7 (53 -90) ESV ml 56 (22-59) 53 (15-68) ml/m^2 25.1 (14-33) 23.8 (11 -37) CO L/min 6.95 6.16 L/min/m^2 3.1 2.8 MASS g 79 (72-144) g/m^2 35.4 (48-78) SV ml 88 (57-113) 78 (56-108 ) ml/m^2 39.5 (37-62) 35.0 (36 -60) EF % 61 (59-77) 60 (55-79) '------+ +------+ +- -----+ ' CARDIAC OUTPUT HR: 79 BPM AORTIC ROOT DIMENSIONS ------- AORTIC ROOT SIZE: Normal ANATOMY -------- LEFT VENTRICLE ------- WALL THICKNESS: Normal INTERATRIAL SEPTUM ------- ATRIAL SEPTUM:ANEURYSM LEFT ATRIUM ------- CAVITY SIZE: MILDLY ENLARGED RIGHT ATRIUM ------- CAVITY SIZE: MILDLY ENLARGED VALVES -------- AORTIC VALVE ------- AORTIC VALVE LEAFLETS: Trileaflet AORTIC REGURGITATION: MILD SCAN INFO GENERAL -------- CONTRAST AGENT ------- TYPE: Gadavist VOLUME ADMINISTERED: 7.5 ml DOSAGE FOR 0.5M: 0.03 mmol/kg VITALS ------- HEIGHT: 67.00 in WEIGHT: 251.00 lbs BSA: 2.23 m^2 PULSE SEQUENCES ------- IR GRE - Single Shot, IR SSFP - Single Shot, T2 Turbo Spin Echo w/fat sat, SSFP Cine SETUP ------- REASON(S) FOR SCAN: Arrhythmia, Syncope Report generated by rehana Perrin of [employer] Ljilal Jackeline Agrawal MD IMG MRI ORDERABLES documented in this encounter Visit Diagnoses Diagnosis Syncope, unspecified syncope type NSVT (nonsustained ventricular tachycard ia) Paroxysmal ventricular tachycardia Benign essential hypertension Essential hypertension, benign documented in this encounter Administered Medications Inactive Administered Medications - up to 3 most recent administrations Medication Order MAR Action Action Date Dose Rate Site diazepam (VALIUM) tablet 5 mg Given 12/21/2018 11:02 AM HEAD PASTRY CHEF 5 mg 5 mg, Oral, EVERY 30 MIN PRN, anxiety, May repeat 5 mg dose every 30 minutes x 1. MAX total dose of 10 mg., Starting on Wed12/21/18 at 1036, For 2 doses, Give 1 hour prior to the procedure. IF the patient has not received a dose on the patient care unit or at home prior to arrival. This dose is to be given ONLY by provider or CT procedure staff ONLY as verbally requested by the provider. Hold if respiratory rate less than 12 or systolic blood pressure less than 90 mmHg., Cardiac Intra-procedure Given 12/21/2018 10:42 AM HEAD PASTRY CHEF 5 mg gadobutrol (GADAVIST) injection 7.5 mL Given 12/21/2018 12:00 PM HEAD PASTRY CHEF 7.5 mLs 7.5 mL, Intravenous, ONCE, On Wed12/21/18 at 1115, For 1 dose gadobutrol (GADAVIST) injection 7.5 mL Given 12/21/2018 12:00 PM HEAD PASTRY CHEF 7.5 mLs 7.5 mL, Intravenous, ONCE, On Wed12/21/18 at 1115, For 1 dose documented in this encounter Additional Health Concerns Assessment Noted Time PHQ-9 Depression Total Score: 15 11/15/2018 3:49 PM CS T documented as of this encounter Care Teams Correctional Program Officer Relationship Specialty Start Date End Date Bhanu Godoy MD PCP - Assigned PCP 10/20/18 12/27/18 [id number] [place] [address] Bhanu Godoy MD PCP - General Family Practice 12/21/18 01/01/20 [id number] [facility], [place] [id number] Bhanu Godoy MD Assigned PCP 10/20/18 02/28/22 [address] [facility], [place] [id number] documented as of this encounter
--- OUTSIDE RECORDS SUMMARY | 2022-08-10 10:54 | XMS_ITS | Encounter Summary ---
:1965 Author Organization [facility] Address [address] [place] [address]. [place] [address] Care Team Providers Name Role Phone Bhanu Godoy MD Primary Care Provider Bhanu Godoy MD Unavailable Reason for Visit Reason Comments Establish Care Referral Bhanu Godoy Consultation - Closed Specialty Diagnoses / Procedures Referred By Contact Refer red To Contact Diagnoses Fibromyalgia Bhanu Godoy MD [facility] [id number] [place] [address] [phone] [place] [address] [phone] Phone: Fax: Referral ID Status Reason Start Date Expiration Date Visits Requ ested Visits Authorized [id number] Closed 12/01/2018 12/01/2019 1 1 Encounter Details Date Type Department Care Team Description 03/01/2019 Office Visit [facility] [place] [address] [place] [address] Fibromyalgia (Primary Clinic [place] Adams Dove MD [facility] [address] [place], [place] [id number] Dx) [place] [address] [place] [phone] Social History Tobacco Use Types Packs/Day Years [...] - Inhaled Oxygen Concentration - - Weight 112 kg (247 lb) 03/01/2019 2:13 PM CDT Height 170.2 cm (5' 7) 03/01/2019 2:13 PM CDT Body Mass Index 38.69 03/01/2019 2:13 PM CDT documented in this encounter Progress Notes Adams Dove MD - 03/01/2019 2:00 PM CDT [facility] Visit Al[facility] Date of : 1965 Primary care provider: Bhanu Godoy March 01, 2019 Assessment and Plan: # Fibromyalgia (new diagnosis) Before confirming the diagnosis, we will evaluate further to make sure. Basic blood cell counts, liver and kidney function labs within normal limits TSH within normal limits Patient already on cymbalta, gabapentin, trazadone and meloxicam. We will do the following work up. We will meet again to discuss next steps. The labs from patient records are reviewed. I will be back in touch with the patient through mychart/letter when results are available. Patient agrees with the above mentioned treatment plan. Most Recent Immunizations Administered Date(s) Administered ??? Influenza Vaccine IM 3yrs+ 4 Valent IIV4 07/23/2013 Orders Placed This Encounter Procedures ??? Rheumatoid factor ??? Cyclic Citrullinated Peptide Antibody IgG ??? Anti Nuclear Merry IgG by IFA with Reflex ??? Erythrocyte sedimentation rate auto ??? CRP inflammation ??? Vitamin D Deficiency ??? CK total No follow-ups on file. Medications Discontinued During This Encounter Medication Reason ??? ondansetron (ZOFRAN ODT) 4 MG ODT tab Therapy completed Current Outpatient Medications Medication Sig Dispense Refill ??? dcttulb-ktmoaeqbghztd-lvfdzgid (EXCEDRIN MIGRAINE) 250-250-65 MG per tablet Take 2 tablets by mouth every 8 hours as needed ??? DULoxetine (CYMBALTA) 30 MG capsule Take 1 capsule (30 mg) by mouth daily Until gone 10 capsule 0 ??? GABAPENTIN PO Take 600 mg by [...] 100 mg by mouth daily 3 ??? traZODone (DESYREL) 50 MG tablet Take 1 tablet (50 mg) by mouth At Bedtime 30 tablet 1 ??? venlafaxine (EFFEXOR-XR) 37.5 MG 24 hr capsule SIG 1 every day X 7 days then 2 every day X 7 days then switch 21 capsule 1 ??? VITAMIN D, CHOLECALCIFEROL, PO Take 2,000 Units by mouth daily. ??? acetaminophen-caffeine (EXCEDRIN TENSION HEADACHE) 500-65 MG TABS Take 2 tablets by mouth ??? venlafaxine (EFFEXOR-ER) 150 MG 24 hr tablet Take 1 tablet (150 mg) by mouth daily (Patient not taking: Reported on 03/01/2019) 30 each 1 ??? zolpidem (AMBIEN) 5 MG tablet Take 1 tablet (5 mg) by mouth nightly as needed for sleep (Patientnot taking: Reported on 03/01/2019) 30 tablet 0 Adams Dove MD [facility] Active Problem List: Patient Active Problem List Diagnosis Date Noted ??? Nephrolithiasis 12/01/2018 Priority: Medium ??? Hypertension, unspecified type 11/16/2018 Priority: Medium ??? Hx of pancreatitis 11/16/2018 Priority: Medium ??? Mild major depression (H) 11/16/2018 Priority: Medium ??? Morbid obesity (H) 11/16/2018 Priority: Medium ??? Anxiety 11/16/2018 Priority: Medium ??? Syncope 01/06/2018 Priority: Medium ??? Chronic abdominal pain 07/23/2013 Priority: Medium ??? Migraine headache 03/25/2013 Priority: Medium History of Present Illness: Chief Complaint Patient presents with ??? Establish Care ??? Referral Bhanu Godoy February 22, 2019 Have you ever seen a wastewater project manager NO Who na When na Joint pain history Onset: Patient was referred here for evaluation of fibromyalgia. Involved joints: shoulders, elbows, knees, calves, hips, buttocks Pain scale: 8/10 Wakes the patient from sleep : Yes Morning stiffness:Yes for 120 minutes Meds used:trazadone (just started about a week ago for sleep and seems to be helping), gabapentin (does not help much) ?? Interim history Since last visit: 1. Infections - No 2. New symptoms/medical problem - No 3. Any side effects from Rheum medications -NA 3. ER visits/Hospitalizations/surgeries - Yes, ER for kidney stone re-evaluation 4. Last PCP visit: 02/23/19 Wt Readings from Last 4 Encounters: 03/01/19 112 kg (247 lb) 02/23/19 113.4 kg (250 lb) 02/09/19 112.9 kg (249 lb) 12/28/18 113.8 kg (250 lb 14.4 oz) shortness of breath, cough, chest pain- being evaluated Fatigue- 03/03 No h/o unintentional weight loss, fevers, rash, swollen glands No family or personal history of psoriasis, ulcerative colitis or chron's disease. No h/o iritis or glaucoma. Patient denies any raynauds No h/o persistent vomiting, diarrhea, abdominal pain No h/o hematochezia, hematuria, hemoptysis No h/o seizures No h/o cancer BP Readings from Last 3 Encounters: 02/23/19 (!) 132/92 02/09/19 114/78 12/28/18 126/82 Review of Systems: Complete ROS negative except for symptoms mentioned in the HPI Past Medical History: Past Medical History: Diagnosis Date ??? Ankle [...] Procedure Laterality Date ??? CHOLECYSTECTOMY 1993 ??? CARTOGRAPHY/MAPPING TECHNICIAN SURGERY hysterectomy ??? [facility] ENDOSCOPY W EUS 05/04/2013 Procedure: COMBINED ENDOSCOPIC ULTRASOUND, ESOPHAGOSCOPY, GASTROSCOPY, DUODENOSCOPY (EGD); Surgeon:Greta Joel MD; Location: [facility] ??? ORTHOPEDIC SURGERY cervical spine fusion Social History: Social History Occupational History ??? Not on file Tobacco Use ??? Smoking status: Never Smoker ??? Smokeless tobacco: Never Used Substance and Sexual Activity ??? Alcohol use: Yes Frequency: Monthly or less Comment: not very often ??? Drug use: No ??? Sexual activity: Yes Partners: Male Family History: Family History Problem Relation Age of Onset ??? C.A.D. Father ??? Respiratory Father lung fibrosis ??? Cerebrovascular Disease Father ??? Pacemaker Father 75 ??? Diabetes Brother ??? Diabetes Sister ??? Pacemaker Sister 45 Had a pacemaker and defibrillator placed at age 45 for idiopathic dilated cardiomyopathy ??? Cardiomyopathy Sister ??? Diabetes Brother ??? Diabetes Brother Allergies: No Known Allergies Medications: Current Outpatient Medications Medication Sig Dispense Refill ??? vntgwrv-gsuecugrqcucn-txrbalgx (EXCEDRIN MIGRAINE) 250-250-65 MG per tablet Take 2 tablets by mouth every 8 hours as needed ??? DULoxetine (CYMBALTA) 30 MG capsule Take 1 capsule (30 mg) by mouth daily Until gone 10 capsule 0 ??? GABAPENTIN PO Take 600 mg by [...] 100 mg by mouth daily 3 ??? traZODone (DESYREL) 50 MG tablet Take 1 tablet (50 mg) by mouth At Bedtime 30 tablet 1 ??? venlafaxine (EFFEXOR-XR) 37.5 MG 24 hr capsule SIG 1 every day X 7 days then 2 every day X 7 days then switch 21 capsule 1 ??? VITAMIN D, CHOLECALCIFEROL, PO Take 2,000 Units by mouth daily. ??? acetaminophen-caffeine (EXCEDRIN TENSION HEADACHE) 500-65 MG TABS Take 2 tablets by mouth ??? venlafaxine (EFFEXOR-ER) 150 MG 24 hr tablet Take 1 tablet (150 mg) by mouth daily (Patient not taking: Reported on 03/01/2019) 30 each 1 ??? zolpidem (AMBIEN) 5 MG tablet Take 1 tablet (5 mg) by mouth nightly as needed for sleep (Patientnot taking: Reported on 03/01/2019) 30 tablet 0 Physical Exam: Height 1.702 m (5' 7), weight 112 kg (247 lb), not currently . Wt Readings from Last 4 Encounters: 03/01/19 112 kg (247 lb) 02/23/19 113.4 kg (250 lb) 02/09/19 112.9 kg (249 lb) 12/28/18 113.8 kg (250 lb 14.4 oz) Constitutional: well-developed, appearing stated age; cooperative Eyes: normal conjunctiva, sclera ENT: nl external ears, nose, lips.No mucous membrane lesions, normal saliva pool Neck: no cervical lymphadenopathy Resp: lungs clear to auscultation in the bases, CV: RRR, no added sounds GI: Abdomen soft and no tenderness : not tested Lymph: no cervical, supraclavicular or epitrochlear nodes FIBROMYALGIA TENDER POINTS ARE POSITIVE MS: All shoulder, elbow, wrist, MCP/PIP/DIP, hip, knee, ankle, and foot MTP/IP joints were examined and found without active synovitis or major deformity. Full ROM. No dactylitis, tenosynovitis, enthesopathy. Skin: no rash in exposed areas Psych: nl judgement, orientation, memory, affect. Data: Adams Dove MD [facility] documented in this encounter Nursing Notes Sharon Zhou CMA - 03/01/2019 2:00 PM CDT Chief Complaint Patient presents with ??? Establish Care ??? Referral Bhanu Godoy Initial Ht 1.702 m (5' 7) Wt 112 kg (247 lb) BMI 38.69 kg/m?? Estimated body mass index is 38.69 kg/m?? as calculated from the following: Height as of this encounter: 1.702 m (5' 7). Weight as of this encounter: 112 kg (247 lb). Medication Reconciliation: complete Have you ever seen a wastewater project manager NO Who na When na Joint pain history Onset: Patient was referred here for evaluation of fibromyalgia. Involved joints: shoulders, elbows, knees, calves, hips, buttocks Pain scale: 8/10 Wakes the patient from sleep : Yes Morning stiffness:Yes for 120 minutes Meds used:trazadone, gabapentin Interim history Since last visit: 1. Infections - No 2. New symptoms/medical problem - No 3. Any side effects from Rheum medications -NA 3. ER visits/Hospitalizations/surgeries - Yes, ER for kidney stone re-evaluation 4. Last PCP visit: 02/23/19 Wt Readings from Last 4 Encounters: 03/01/19 112 kg (247 lb) 02/23/19 113.4 kg (250 lb) 02/09/19 112.9 kg (249 lb) 12/28/18 113.8 kg (250 lb 14.4 oz) BP Readings from Last 3 Encounters: 02/23/19 (!) 132/92 02/09/19 114/78 12/28/18 126/82 documented in this encounter Miscellaneous Notes Result Encounter Note - Adams Dove MD - 03/01/2019 2:00 PM CDT Results released to [employer]: Inflammatory markers are normal. CK muscle enzyme is normal. Rheumatoid antibodies are normal. Vitamin d level is normal. ZAINAB antibody is borderline positive. This antibody can sometimes be seen in lupus or associated conditions. This antibody can also be present in low titer in general population without these diseases. However in your case, it is better to check the specific antibodies for lupus and associated conditions. I have put the orders in for these labs. Please get them done at a nearby local [facility] lab. You may call them to set up a lab appointment. Sincerely Adams Dove MD [facility] documented in this encounter Plan of Treatment Not on filedocumented as of this encounter Procedures Procedure Name Priority Date/Time Associated Diagnosis Comme nts CYCLIC CITRULLINATED Routine 03/01/2019 2:51 Fibromyalgia Resu lts for this PEPTIDE ANTIBODY IGG PM CDT procedu re are in the results section. ANTI NUCLEAR MERRY IGG Routine 03/01/2019 2:51 Fibromyalgia Resu lts for this BY IFA WITH REFLEX PM CDT procedure are in the results section. VITAMIN D DEFICIENCY Routine 03/01/2019 2:51 Fibromyalgia Resu lts for this SCREENING PM CDT procedure are i n the results section. RHEUMATOID FACTOR Routine 03/01/2019 2:51 Fibromyalgia Results for this PM CDT procedure are i n the results section. ERYTHROCYTE Routine 03/01/2019 2:51 Fibromyalgia Results for this SEDIMENTATION RATE PM CDT procedure are in AUTO the results section. CRP INFLAMMATION Routine 03/01/2019 2:51 Fibromyalgia Results for this PM CDT procedure are i n the results section. CK TOTAL Routine 03/01/2019 2:51 Fibromyalgia Results for this PM CDT procedure are i n the results section. documented in this encounter Results CK total (03/01/2019 2:51 PM CDT) P athologist Signature CK Total 83 30 - 225 03/02/2019 [facility] U/L 7:53 AM CDT [facility] Specimen Anatomical Collection Method Collection Time Receive d Time (Source) Location / / Volume Laterality Blood specimen 03/01/2019 2:51 PM 019 2:56 (specimen) CDT PM CDT Adams Dove MD LAB - BLOOD ORDERABLES Performing Organization Address City/State/ZIP Code Phon e Number [facility] [address] [place] [address] Vitamin D Deficiency (03/01/2019 2:51 PM CDT) P athologist Signature Vitamin D 39 20 - 75 03/02/2019 [facility] Deficiency ug/L 12:42 PM CDT [facility] Comment: Season, race, dietary intake, and treatm ent affect the concentration of 46-clzksde-Xyhguni D. Values may decreas e during winter months and increase during summer months. Values 20-29 ug/L may indicate Vitamin D insufficiency and values <20 ug/L may indicate Vitamin D deficiency. Vitamin D determination is routinely per formed by an immunoassay specific for 25 hydroxyvitamin D3. ??If an individual is on vitamin D2 (ergocalciferol) supplementation, please specify 25 OH vi tamin D2 and D3 level determination by LCMSMS test VITD23. Specimen Anatomical Collection Method Collection Time Receive d Time (Source) Location / / Volume Laterality Blood specimen 03/01/2019 2:51 PM 019 2:56 (specimen) CDT PM CDT Adams Dove MD LAB - BLOOD ORDERABLES Performing Organization Address City/State/ZIP Code Phon e Number [address] [address] [facility] CRP inflammation (03/01/2019 2:51 PM CDT) Analysis Performed At Patho logist Time Signature CRP Inflammation <2.9 0.0 - 8.0 03/01/2019 [place] mg/L 10:15 PM CDT [facility] Specimen Anatomical Collection Method Collection Time Receive d Time (Source) Location / / Volume Laterality Blood specimen 03/01/2019 2:51 PM 019 2:56 (specimen) CDT PM CDT Adams Dove MD LAB - BLOOD ORDERABLES Performing Organization Address City/State/ZIP Code Phon e Number [facility] [address] [place] [address] [facility] Erythrocyte sedimentation rate auto (03/01/2019 2:51 PM CDT) P athologist Signature Sed Rate 6 0 - 30 mm/h 03/01/2019 [facility] 3:38 PM CDT [facility] Specimen Anatomical Collection Method Collection Time Receive d Time (Source) Location / / Volume Laterality Blood specimen 03/01/2019 2:51 PM 019 2:56 (specimen) CDT PM CDT Adams Dove MD LAB - BLOOD ORDERABLES Performing Organization Address City/[facility]/ZIP Code Phon e Number [facility] [address] [place] [address] (ABNORMAL) Anti Nuclear Merry IgG by IFA with Reflex (03/01/2019 2:51 PM CDT) Component Value Ref Test Analysis Performed At [facility] Range Method Time Signature ZAINAB interpretation Positive (A) NEG^Nega 03/02/2019 [facility] tive 4:47 PM CDT [facility] Comment: ? Reference range: <1:40 ??NEGATIVE 1:40 - 1:80 ??BORDERLINE POSITIVE >1:80 POSITIVE ZAINAB pattern 1 DENSE FINE SPECKLED 03/02/2019 4:[address] [facility] ZAINAB titer 1 1:160 03/02/2019 4:47 PM CDT [facility] Specimen Anatomical Collection Method Collection Time Receive d Time (Source) Location / / Volume Laterality Blood specimen 03/01/2019 2:51 PM 019 2:56 (specimen) CDT PM CDT Adams Dove MD LAB - BLOOD ORDERABLES Performing Organization Address City/[facility]/ZIP Code Phon e Number [facility] [address] [place] [address] [facility] Cyclic Citrullinated Peptide Antibody IgG (03/01/2019 2:51 PM CDT) [facility] Method Time Signature Cyclic 1 <7 U/mL 03/03/2019 [facility] Citrullinated 12:44 PM CDT [facility] Peptide Antibody, [facility] Comment: Negative Specimen Anatomical Collection Method Collection Time Receive d Time (Source) Location / / Volume Laterality Blood specimen 03/01/2019 2:51 PM 019 2:56 (specimen) CDT PM CDT Adams Dove MD LAB - BLOOD ORDERABLES Performing Organization Address City/[facility]/ZIP Code Phon e Number [facility] [address] [place], [place] [phone] [place] [address] Rheumatoid factor (03/01/2019 2:51 PM CDT) athologist Signature Rheumatoid <20 <20 IU/mL 03/02/[address] [facility] 9:52 AM CDT [facility] Specimen Anatomical Collection Method Collection Time Receive d Time (Source) Location / / Volume Laterality Blood specimen 03/01/2019 2:51 PM 019 2:56 (specimen) CDT PM CDT Adams Dove MD LAB - BLOOD ORDERABLES Performing Organization Address City/[facility] Code Phon e Number [facility] [address] [place], [place] [id number] [place] [address] documented in this encounter Visit Diagnoses Diagnosis Fibromyalgia - Primary Mylagia and myositis, unspecified documented in this encounter Additional Health Concerns Assessment Noted Time PHQ-9 Depression Total Score: 15 11/15/2018 3:49 PM CS T documented as of this encounter Care Teams Electrical Laboratory Technician Relationship Specialty Start Date End Date Bhanu Godoy MD PCP - General Family Practice 12/21/18 01/01/20 [address] [place] [address] Bhanu Godoy MD Assigned PCP 10/20/18 02/28/22 [address] [place], [place] [id number] documented as of this encounter
--- OUTSIDE RECORDS SUMMARY | 2022-08-10 10:54 | XMS_ITS | Encounter Summary ---
:1965 Author Organization [facility] Address [address] [place] [address] Care Team Providers Name Role Phone No Ref-Primary, Physician Primary Care Provider Bhanu Godoy MD Unavailable Bhanu Godoy MD Unavailable Encounter Details Date Type Department Care Team Description 12/08/2018 Travel Social History Tobacco Use Types Packs/Day [...] documented as of this encounter Care Teams Rpg Programmer Relationship Specialty Start Date End Date No Ref-Primary, Physician PCP - General 11/15/18 12/20/18 Bhanu Godoy MD PCP - Assigned PCP 10/20/18 12/27/18 [address] [place] [address] Bhanu Godoy MD Assigned PCP 10/20/18 02/28/22 [address] [place] [address] documented as of this encounter
--- OUTSIDE RECORDS SUMMARY | 2022-08-10 10:54 | XMS_ITS | Encounter Summary ---
:1965 Author Organization [facility] Address [address] [place] [address] Care Team Providers Name Role Phone Bhanu Godoy MD Primary Care Provider Bhanu Godoy MD Unavailable Reason for Visit Reason Onset Date Comments Refill Request 01/31/2019 zolpidem (AMBIEN) 5 MG tablet Refill Request 02/02/2019 Encounter Details Date Type Department Care Team Description 01/31/2019 Refill [facility] Bhanu Godoy MD Refill Request (zolpidem [place] [address] (AMBIEN) 5 MG tablet); [address] [place], [place] [phone] Social History Tobacco Use Types Packs/Day Years [...] this encounter Miscellaneous Notes Telephone Encounter - Antonella Vuong - 02/02/2019 11:34 AM CDT rx approved and faxed to pharmacy \ Antonella Vuong/TC Telephone Encounter - Sangita Lynn RN - 02/01/2019 11:35 AM CDT Images from the original note were not included. Failing a lot of HM. Has been called for pap, mammo and colon on 01/03/19. Appt 02/09/19 with [facility]. No upcoming appt with Dr. Godoy. Was to RTC in 1 month. Also note discusses possible sleep study. Zolpidem states 12/31/18?? Not [facility] med. Sent to provider. Please advise. Sangita Lynn RN 12/01/18 ASSESSMENT/PLAN: (I47.2) Paroxysmal ventricular tachycardia (H) (primary [...] nasal spray Advised to stop using Excedrin ?? (G47.00) Insomnia, unspecified type Comment: disc she might benefit from a sleep referral in the future. At this time Plan: zolpidem (AMBIEN) 5 MG tablet ? The information in this document, created by the medical psychotherapist for me, accurately reflects the services I personally performed and the decisions made by me. I have reviewed and approved this document for accuracy prior to leaving the patient care area. December 01, 2018 10:14 AM ? Bhanu Godoy MD [facility] Instructions Return in about 4 weeks (around 12/29/2018). Telephone Encounter - Za Bailon - 01/31/2019 1:45 PM CDT Images from the original note were not included. Requested Prescriptions Pending Prescriptions Disp Refills ??? zolpidem (AMBIEN) 5 MG tablet 30 tablet 1 Sig: Take 1 tablet (5 mg) by mouth nightly as needed for sleep Last Written Prescription Date: 12/01/18 Last Fill Quantity: 30, # refills: 1 Last Office Visit: 12/01/2018 Walt Return in about 4 weeks (around 12/29/2018). Future Office Visit: Next 5 appointments (look out 90 days) Feb 09, 2019 9:30 AM CDT [facility] Greta Holman PA-[facility] [id number] [place] [phone] There is no refill protocol information for this order documented in this encounter Plan of Treatment Not on filedocumented as of this encounter Visit Diagnoses Diagnosis Insomnia, unspecified type documented in this encounter Additional Health Concerns Assessment Noted Time PHQ-9 Depression Total Score: 15 11/15/2018 3:49 PM CS T documented as of this encounter Care Teams Manager Retirement Relationship Specialty Start Date End Date Bhanu Godoy MD PCP - General Family Practice 12/21/18 01/01/20 [address] [place], [place] [phone] Bhanu Godoy MD Assigned PCP 10/20/18 02/28/22 [address] [place], [place] [phone] documented as of this encounter
--- OUTSIDE RECORDS SUMMARY | 2022-08-10 10:54 | XMS_ITS | Encounter Summary ---
:1965 Author Organization [facility] Address [address] [place] [address]. [place] [address] Care Team Providers Name Role Phone Bhanu Godoy MD Primary Care Provider Bhanu Godoy MD Unavailable Encounter Details Date Type Department Care Team Description 02/14/2019 Telephone [facility] Bhanu Godoy MD [place] [phone] [place] [phone] [phone] Social History Tobacco Use Types Packs/Day Years [...] this encounter Miscellaneous Notes Telephone Encounter - Bel Day CMA - 02/15/2019 10:13 AM CDT Done [place] CMA Telephone Encounter - Greta Holman PA-C - 02/14/2019 6:32 PM CDT genesight In my outbox. One copy to abstracting and one to Dr. Godoy's in-basket please. Greta Holman PA-C documented in this encounter Plan of Treatment Not on filedocumented as of this encounter Visit Diagnoses Not on filedocumented in this encounter Additional Health Concerns Assessment Noted Time PHQ-9 Depression Total Score: 15 11/15/2018 3:49 PM CS T documented as of this encounter Care Teams Group Home Worker Relationship Specialty Start Date End Date Bhanu Godoy MD PCP - General Family Practice 12/21/18 01/01/20 [address] [place], [place] [phone] Bhanu Godoy MD Assigned PCP 10/20/18 02/28/22 [address] [place], [place] [phone] documented as of this encounter
--- OUTSIDE RECORDS SUMMARY | 2022-08-10 10:54 | XMS_ITS | Encounter Summary ---
:1965 Author Organization [facility] Address [address] [place] [address] Care Team Providers Name Role Phone No Ref-Primary, Physician Primary Care Provider Bhanu Godoy MD Unavailable Bhanu Godoy MD Unavailable Encounter Details Date Type Department Care Team Description 12/01/2018 Travel Social History Tobacco Use Types Packs/Day [...] documented as of this encounter Care Teams Sap Business Analyst Relationship Specialty Start Date End Date No Ref-Primary, Physician PCP - General 11/15/18 12/20/18 Bhanu Godoy MD PCP - Assigned PCP 10/20/18 12/27/18 [address] [place] [address] Bhanu Godoy MD Assigned PCP 10/20/18 02/28/22 [address] [facility], [place] [id number] documented as of this encounter
--- OUTSIDE RECORDS SUMMARY | 2022-08-10 10:54 | XMS_ITS | Encounter Summary ---
:1965 Author Organization [place] Address [address] [place] [address] Care Team Providers Name Role Phone No Ref-Primary, Physician Primary Care Provider Bhanu Godoy MD Unavailable Bhanu Godoy MD Unavailable Reason for Referral - Closed Specialty Diagnoses / Procedures Referred By Contact Refer red To Contact Diagnoses Syncope, unspecified syncope type NSVT (nonsustained ventricular tachycardia) Benign essential hypertension Josie Smith MD 6 [place], [place] [address] Referral ID Status Reason Start Date Expiration Date Visits Requ ested Visits Authorized [id number] Closed 12/08/2018 12/08/2019 1 1 V Testing - Closed Specialty Diagnoses / Procedures Referred By Contact Refer red To Contact Cardiology Diagnoses Syncope, unspecified syncope type NSVT (nonsustained ventricular tachycardia) Benign essential hypertension Josie Smith, Rh Cv Cardiac Svc Rscc Procedures Cardiac Event Monitor Adult Pediatric C AMB BP MONITORING >=24 HR, RECORD/SCAN/INTRP/RPT HC HOLTER RECORDING 24 HRS HC HOLTER SCAN 24 HRS [address] [employer] [address] [facility] [address] [place], [place] [address] 5 [place] [address] Phone: Fax: Referral ID Status Reason Start Date Expiration Date Visits Requ ested Visits Authorized [id number] Closed 12/08/2018 12/08/2019 1 1 [facility] Diagnostic Imaging MRI - Closed Specialty Diagnoses / Procedures Referred By Contact Refer red To Contact Cardiology Diagnoses Syncope, unspecified syncope type NSVT (nonsustained ventricular tachycardia) Benign essential hypertension Josie Smith, Cv Mri Procedures MRI Cardiac w/contrast [address] [facility] [address] [place], [place] [address] 4 [place] [address] Referral ID Status Reason Start Date Expiration Date Visits Requ ested Visits Authorized [id number] Closed 12/19/2018 01/17/2019 1 1 [facility] Reason for Visit Reason Comments New Patient Syncope CV Cardio consult - Closed Specialty Diagnoses / Procedures Referred By Contact Refer red To Contact Diagnoses Paroxysmal ventricular tachycardia Syncope, unspecified syncope type Bhanu Godoy MD [facility] [id number] [place] [address] [phone] [facility] [address] Phone: [phone] Fax: Referral ID Status Reason Start Date Expiration Date Visits Requ ested Visits Authorized [id number] Closed 12/01/2018 12/01/2019 1 1 Encounter Details Date Type Department Care Team Description 12/08/2018 Office Visit [facility] [place] [id number] [place] [address] [id number] Syncope, unspecified syncope type (Prima ry Dx); [facility] Josie Smith MD [address] [place] [address] NSVT (nonsustained ventricular tachycard ia) (H); [facility] [place] [address] [facility] [address] [place] [address] Social History Tobacco Use Types [...] Sign Reading Time Taken Comments Blood Pressure 118/82 12/08/2018 1:14 PM [facility] Pulse 103 12/08/2018 1:14 PM [facility] Temperature - - Respiratory Rate - - Oxygen Saturation 93% 12/08/2018 1:14 PM [facility] Inhaled Oxygen Concentration - - Weight 113.9 kg (251 lb) 12/08/2018 12:45 PM [facility] Height 170.2 cm (5' 7) 12/08/2018 12:45 PM [facility] Body Mass Index 39.31 12/08/2018 12:45 PM [facility] documented in this encounter Patient Instructions Patient InstructionsJosie Smith MD - 12/08/2018 12:45 PM CST 1. No changes to medications today. 2. Additional testing - 30-day cardiac event monitor and cardiac MRI. 3. Referral - visit with the heart rhythm specialist. Can be done here at [facility]. If you have any questions or concerns, please contact my nurses at [phone]. [facility] documented in this encounter Progress Notes Josie Smith MD - 12/08/2018 4:30 PM CST Service Date: 12/08/2018 PRIMARY CARE AND REFERRING PROVIDER: Bhanu Godoy MD REASON FOR VISIT: Recurrent syncope. HISTORY OF PRESENT ILLNESS: Debbi Culver is new to Cardiology here. She is transferring her cardiac care from [facility]. She was unaccompanied today. The patient is a 53-year-old, postmenopausal lady with elevated BMI of 40 kg/m2 and known to have migraine headaches, chronic pain following cervical spinal fusion surgeries, never tobacco user and labile hypertension. Over the last year, the patient has had approximately 6 episodes of syncope with minimal warning. The first occurred approximately in 12/2017. She was sitting on the toilet seat and giving her young granddaughter a bath, when she suddenly started feeling lightheaded and as if things were going to black out and slumped forward. This lasted a few seconds and she immediately regained consciousness. Her iwkovkyz-ro-wth, who is a nurse, saw her and as she was talking to her, the patient had another episode where she slumped forward. She was brought to the emergency room where her evaluation was unremarkable. She had a followup heart rhythm monitor which she wore for 5 days which showed 2 episodes of monomorphic ventricular tachycardia with the fastest interval lasting 13 beats with a maximum rate of 146 BPM. She was asymptomatic during this. Her labs at the time showed an elevated TSH of 16.4 with a normal free T4. She is on replacement therapy. Urine was positive for cannabinoids (was on medical marijuana for chronic orthopedic pain). She lives alone, has a small dog and admits to a sedentary lifestyle. She denies any other recreational substance use. Interestingly, she also had another witnessed syncopal episode while waiting in the emergency room triage (but the rhythm was not caught as she was not checked in at that time). She says that since then she has had a couple more episodes. The most recent was 2 weeks ago when she was climbing up the stairs with the laundry hamper. She started feeling the prodrome of lightheadedness and knew she was going to go down and just sat on the floor and briefly lost consciousness. It was unwitnessed. The patient underwent evaluation at [facility] by a outreach consultant. Stress test was negativefor ischemia. She was noted to have significantly elevated blood pressure and antihypertensive regimen has been modified. BP today is 118/82 mmHg, with a resting pulse of 100 BPM. ECG shows sinus rhythm with a slightly short AL interval of 116 milliseconds, but no definite delta waves. FAMILY HISTORY: Richar is 1 of 11 children. One of her sisters, Cydney, who is currently alive, wasdiagnosed with idiopathic cardiomyopathy and underwent a pacemaker defibrillator placement at age 45years. PHYSICAL EXAMINATION: BP 118/82 mmHg, pulse 83 per minute, height 1.7 meters (5 feet 7 inches), weight 115.9 kg. BMI 39.3 kg/m2. Physical exam is pertinent for elevated BMI, regular heart sounds, no audible murmur, no lower extremity edema. DIAGNOSES: 1. Syncope. 2. Nonsustained ventricular tachycardia. 3. Hypertension. 4. Family history of cardiomyopathy and ICD placement in sister at age 45 years. ASSESSMENT: The patient gives a clear history of sudden onset syncope with a brief prodrome. She has 2 documented episodes of brief ventricular tachycardia on Holter. On ECG, AL interval is slightly short, but there is no definite evidence of pre- excitation. She has a structurally normal heart and negative stresstest. Given the fact that she has ongoing syncope, I recommend proceeding to other testing and getting the expertise of a heart rhythm specialist. PLAN: 1. No changes to medications. 2. A 30-day cardiac event monitor and cardiac MRI. 3. Referral to heart rhythm specialist. It was my pleasure to visit with this lady. I wish her all the best. JOSIE SMITH MD MT: CANDIS Name: RICHAR CULVER Account: [id number] : 1965 Service Date: 12/08/2018 Document: [id number] Josie Smith MD - 12/08/2018 12:45 PM CST [facility] Josie Smith MD - 12/08/2018 12:45 PM CST Clinic visit note dictated. Dictation reference number - [id number] REVIEW OF SYSTEMS: A comprehensive 10-point review of systems was completed and the pertinent positives are documented in the history of present illness. Skin: Negative Eyes: Positive for glasses ENT: Positive for Respiratory: Positive for dyspnea on exertion Cardiovascular: syncope or near- syncope;dizziness;lightheadedness;palpitations;Positive for;edema Gastroenterology: Positive for diarrhea Genitourinary: Negative Musculoskeletal: Positive for back pain;arthritis;joint pain Neurologic: Positive for migraine headaches;numbness or tingling of hands Psychiatric: Positive for excessive stress;anxiety;depression Heme/Lymph/Imm: Negative Endocrine: Positive for thyroid disorder CURRENT MEDICATIONS: Current Outpatient Medications Medication Sig Dispense Refill ??? DULoxetine (CYMBALTA) 60 MG capsule Take [...] ??? SUMAtriptan (IMITREX) 5 MG/ACT nasal spray [place] 1 spray in nostril as needed for migraine 3 each 3 ??? VITAMIN D, CHOLECALCIFEROL, PO Take 2,000 Units by mouth daily. ??? ZOLMitriptan (ZOMIG) 5 MG tablet Take 1 tablet (5 mg) by mouth at onset of headache for tablet 1 ??? zolpidem (AMBIEN) 5 MG tablet Take 1 tablet (5 mg) by mouth nightly as needed for sleep 30 tablet 1 ??? acetaminophen-caffeine (EXCEDRIN TENSION HEADACHE) 500-65 MG TABS Take 2 tablets by mouth ??? fqduhzj-vzthdccfbxlgj-taczyovg (EXCEDRIN MIGRAINE) 250-250-65 MG per tablet Take 2 tablets by mouth every 8 hours as needed ALLERGIES: No Known Allergies PAST MEDICAL HISTORY: Past [...] Procedure Laterality Date ??? CHOLECYSTECTOMY 1992 ??? EXTRUSION DIE CORRECTOR SURGERY hysterectomy ??? HC UGI ENDOSCOPY W [...] education: None ??? Highest education level: None Social Needs ??? Financial resource strain: None ??? Food insecurity - worry: None ??? Food insecurity - inability: None ??? Transportation needs - medical: None ??? Transportation needs - non-medical: None Occupational History ??? None Tobacco Use ??? Smoking status: Never Smoker ??? Smokeless tobacco: Never Used Substance and Sexual Activity ??? Alcohol use: Yes Comment: not very often ??? Drug use: No ??? Sexual activity: None Other Topics Concern ??? Parent/sibling w/ CABG, [place] or angioplasty before 65F 55M? Not Asked Social History Narrative Lives in [place] with her and adult son and teenage [...] and is in the process of appeal. PHYSICAL EXAM: Vitals: BP 118/82 (BP Location: Left arm, Patient Position: Standing, Cuff Size: Adult Large) Pulse 103 Ht 1.702 m (5' 7) Wt 113.9 kg (251 lb) SpO2 93% BMI 39.31 kg/m?? Wt Readings from Last 5 Encounters: 12/08/18 113.9 kg (251 lb) 12/01/18 113.9 kg (251 lb 1.6 oz) 11/15/18 113.9 kg (251 lb) 01/05/18 110.1 kg (242 lb 12.8 oz) 08/29/17 97.5 kg (215 lb) Constitutional: Comfortable at rest. Cooperative, alert and oriented, well developed, well nourished. Obese body habitus. Eyes: Pupils equal and round, conjunctivae and lids unremarkable, sclera white, no xanthalasma, ENT: Satisfactory dentition. No cyanosis or pallor. Neck: Carotid pulses are full and equal bilaterally, no carotid bruit, no thyromegaly Respiratory: Normal respiratory effort with symmetrical chest wall movements and no use of accessorymuscles. Good air entry with normal breath sounds and no rales or wheeze. Cardiovascular: Normal jugular venous pulse and pressure. Normal carotid pulse character and volume.No carotid bruit. Apical impulse is not palpable due to body habitus. Heart sounds are normal and regular. No audible murmur. No S3, S4 or friction rub. GI: Soft, nontender, no hepatosplenomegaly, no masses, active bowel sounds. Skin: No rash, erythema, ecchymosis. Neuropsychiatric: Oriented to time place and person. Affect normal. No gross motor deficits. Extremities: No edema. No clubbing or deformities. Encounter Diagnosis Name Primary? Screening for cardiovascular condition Yes Orders Placed This Encounter Procedures ??? EKG 12-lead complete w/read - Clinics (performed today) CC [place] [address] [facility] [facility] [place] [address] [facility] documented in this encounter Plan of Treatment Scheduled Referrals Name Type Priority Associated Diagnoses Order S chedule Follow-Up with Referral Routine Syncope, unspecified Expec fe: [employer] syncope type 2019 NSVT (nonsustained (Approxim ate), ventricular Expires: tachycardia) (H) 12/08/2019 Benign essential hypertension documented as of this encounter Procedures Procedure Name Priority Date/Time Associated Diagnosis Comme nts EKG 12-LEAD Routine 12/08/2018 4:34 PM Results f or this COMPLETE W/READ - [facility] procedure are in CLINICS the results section. documented in this encounter Results MRI Cardiac w/contrast (12/21/2018 11:54 AM [facility]) Anatomical Region Laterality Modality Cardio, SUBRAD MR BODY, UMP MR CHEST Mag netic Resonance Specimen (Source) Anatomical Collection Method Collection Time Re ceived Time Location / / Volume Laterality 12/21/2018 10:40 AM [facility] Narrative 12/21/2018 2:18 PM [facility] ?[facility] ? CMR Report ??MRN: ?[id number] ?Name: ? RICHAR CULVER ?: ?1965-0 3-14 [...] Late gadolinium enhancement imaging s hows no [place], fibrosis or infiltrative disease. 6. There is no pericardial effusion. 7. There is no intracardiac thrombus. CONCLUSIONS: 1. Normal LV and RV systolic functions. 2. Late gadolinium enhancement imaging s hows no [place], fibrosis or infiltrative disease CORE EXAM MEASUREMENTS -------- ?VOLUMETRIC ANALYSIS ? . . ? LV ?? Ref erence RV ?? Reference +------+ +------+ +- -----+ + EDV ?? ml ?144 ??(86- 166) ??131 ??(81-166) ? ml/m^2 ? 64.6 [...] Technologies Procedure Note Hipolito Gonzalez MD - 12/21/2018Mone monzon of this note might be different from the original. [facility] CMR Report Name: RICHAR CULVER : [...] Late gadolinium enhancement imaging s hows no [place], fibrosis or infiltrative disease. 6. There is no pericardial effusion. 7. There is no intracardiac thrombus. CONCLUSIONS: 1. Normal LV and RV systolic functions. 2. Late gadolinium enhancement imaging s hows no [place], fibrosis or infiltrative disease CORE EXAM MEASUREMENTS [...] FOR SCAN: Arrhythmia, Syncope Report generated by [employer], a produc t of [employer] Josie Smith MD IMG MRI ORDERABLES EKG 12-lead complete w/read - Clinics (performed today) (12/08/2018 4:34 PM [facility]) Narrative This result has an attachment that is no t available. Josie Smith MD ECG ORDERABLES CARDIAC EVENT MONITOR APPLICATION AND PROVIDER INTERPRETATION (12/08/2018 3:29 PM [facility]) Anatomical Region Laterality Modality Other Specimen (Source) Anatomical Location Collection Method / Collectio n Time Received Time / Laterality Volume Narrative This result has an attachment that is no t available. Josie Smith MD CV CARDIAC SERVICES ORDERABL ES documented in this encounter Visit Diagnoses Diagnosis Syncope, unspecified syncope type - Prim alice NSVT (nonsustained ventricular tachycard ia) Paroxysmal ventricular tachycardia Benign essential hypertension Essential hypertension, benign Syncope, unspecified syncope type NSVT (nonsustained ventricular tachycard ia) Paroxysmal ventricular tachycardia Benign essential hypertension Essential hypertension, benign documented in this encounter Additional Health Concerns Assessment Noted Time PHQ-9 Depression Total Score: 15 11/15/2018 3:49 PM CS T documented as of this encounter Care Teams Education Spec Relationship Specialty Start Date End Date No Ref-Primary, Physician PCP - General 11/15/18 12/20/18 Bhanu Godoy MD PCP - Assigned PCP 10/20/18 12/27/18 [address] [place], [place] [id number] Bhanu Godoy MD Assigned PCP 10/20/18 02/28/22 [address] [place], [place] [id number] documented as of this encounter
--- OUTSIDE RECORDS SUMMARY | 2022-08-10 10:54 | XMS_ITS | Encounter Summary ---
:1965 Author Organization [facility] Address [address] [place] [address] Care Team Providers Name Role Phone No Ref-Primary, Physician Primary Care Provider [phone] Bhanu Godoy MD Unavailable Bhanu Godoy MD Primary Care Provider Bhanu Godoy MD Unavailable Reason for Visit Reason Onset Date Comments Results 12/16/2018 Urgent cardionet Encounter Details Date Type Department Care Team Description 12/16/2018 Telephone [facility] Nori Wright, Results (Urgent Clinic Spencer RN cardionet ) [facility] [address] [address] Social History Tobacco Use Types Packs/Day [...] Telephone Encounter - Nori Wright RN - 12/20/2018 2:33 PM CST EP OV 12-28-18. MANAGER Telephone Encounter - Nori Wright RN - 12/16/2018 9:54 AM CST [facility] Urgent call. ( 3 day delay). Strip from 12-13-18 @ 20:34 - SR rate 68 bpm, Patient logged symptoms of dizziness and fainting. Spoke with Patient who states she had been laying in Bed, got up went to the kitchen to get a drink.[place] like an aura that she was going to max, laid down on the floor and woke up a few minutes later Maybe 2-3 minutes. Patient called for just to walk her back to the bedroom. Patient denied any use of unprescribed medication, no change in stress or diet. No loss of bowel or bladder. Patient states anger about [employer] calling her a 3 AM this morning regarding strip and asking if she was okay and circumstances of fainting around the entry . Patient states she has not felt like that before that night or since. Patient will go into ED if symptoms return or if she faints again. Patient verbalized understanding and agrees. Reviewed strip with Dr. Jones. Will message Dr. Agrawal. MANAGER documented in this encounter Plan of Treatment Not on filedocumented as of this encounter Visit Diagnoses Not on filedocumented in this encounter Additional Health Concerns Assessment Noted Time PHQ-9 Depression Total Score: 15 11/15/2018 3:49 PM CS T documented as of this encounter Care Teams Compass Operator Relationship Specialty Start Date End Date No Ref-Primary, Physician PCP - General 11/15/18 12/20/18 Bhanu Godoy MD PCP - Assigned PCP 10/20/18 12/27/18 [address] [place], [place] [phone] Bhanu Godoy MD PCP - General Family Practice 12/21/18 01/01/20 [address] [place], [place] [phone] Bhanu Godoy MD Assigned PCP 10/20/18 02/28/22 [address] [place] [address] documented as of this encounter
--- OUTSIDE RECORDS SUMMARY | 2022-08-10 10:54 | XMS_ITS | Encounter Summary ---
:1965 Author Organization [place] Address [address] [facility] [place] [address] Care Team Providers Name Role Phone Bhanu Godoy MD Primary Care Provider Bhanu Godoy MD Unavailable Reason for Visit Reason Onset Date Comments Medication Refill 03/17/2019 venlafaxine and traZ ODone Encounter Details Date Type Department Care Team Description 03/17/2019 Refill [facility] Bhanu Godoy MD Medication Refill [address] (venlafaxine and [address] [place] [address] traZODone ) [place], [place] [id number] [phone] Social History Tobacco Use Types Packs/Day Years [...] this encounter Miscellaneous Notes Telephone Encounter - Yuki Garcia RN - 03/20/2019 9:49 AM CDT Ruth Garcia RN Telephone Encounter - Za Bailon - 03/17/2019 1:46 PM CDT Images from the original note were not included. Requested Prescriptions Pending Prescriptions Disp Refills ??? venlafaxine (EFFEXOR-ER) 150 MG 24 hr tablet [Pharmacy Med Name: VENLAFAXINE HCL ER 150 MG TAB] 30 tablet 0 Sig: TAKE 1 TABLET BY MOUTH EVERY DAY Last Written Prescription Date: 02/23/19 Last Fill Quantity: 30, # refills: 1 Last Office Visit: 02/23/2019 Walt Return in about 6 weeks (around 04/06/2019). Future Office Visit: Next 5 appointments (look out 90 days) Apr 07, 2019 3:00 PM CDT Return Visit with Adams Dove MD [facility] ([facility] [address] [place] [address] Serotonin-Norepinephrine Reuptake Inhibitors Failed - 03/17/2019 10:34 AM Failed - Blood pressure under 140/90 in past 12 months BP Readings from Last 3 Encounters: 02/23/19 (!) 132/92 02/09/19 114/78 12/28/18 126/82 Failed - PHQ-9 score of less than 5 in past 6 months PHQ-9 SCORE 11/15/2018 PHQ-9 Total Score 15 RHINA-7 SCORE 11/15/2018 Total Score 10 Passed - Medication is active on med [...] & Orders section of the refill encounter. ??? traZODone (DESYREL) 50 MG tablet [Pharmacy Med Name: TRAZODONE 50 MG TABLET] 30 tablet 0 Sig: TAKE 1 TABLET (50 MG) BY MOUTH AT BEDTIME Last Written Prescription Date: 02/23/19 Last Fill Quantity: 30, # refills: 1 Last Office Visit: 02/23/2019 Future Office Visit: Next 5 appointments (look out 90 days) Apr 07, 2019 3:00 PM CDT Return Visit with Adams Dove MD [facility] ([facility]) [address] [place] [phone] Serotonin Modulators Passed - 03/17/2019 10:34 AM Passed - Recent (12 mo) or [...] documented as of this encounter Care Teams Counselor Dormitory Relationship Specialty Start Date End Date Bhanu Godoy MD PCP - General Family Practice 12/21/18 01/01/20 [address] [place] [address] Bhanu Godoy MD Assigned PCP 10/20/18 02/28/22 [address] [place] [address] documented as of this encounter
--- OUTSIDE RECORDS SUMMARY | 2022-08-10 10:54 | XMS_ITS | Encounter Summary ---
:1965 Author Organization [place] Address [address] [place] [address] Care Team Providers Name Role Phone Bhanu Godoy MD Primary Care Provider Bhanu Godoy MD Unavailable Reason for Visit Reason Onset Date Comments Results 01/10/2019 Encounter Details Date Type Department Care Team Description 01/10/2019 Telephone [facility] Nickie Wright cie, RN Results [place] [address] [facility] [address] [place] [address] Social History Tobacco Use Types [...] Telephone Encounter - Nori Wright RN - 01/10/2019 11:[address] Agrawal reviewed and signed event summary. COpy sent to scan. Results were reviewed at with Dr. Echevarria. documented in this encounter Plan of Treatment Not on filedocumented as of this encounter Visit Diagnoses Not on filedocumented in this encounter Additional Health Concerns Assessment Noted Time PHQ-9 Depression Total Score: 15 11/15/2018 3:49 PM CS T documented as of this encounter Care Teams Aircraft Captain Relationship Specialty Start Date End Date Bhanu Godoy MD PCP - General Family Practice 12/21/18 01/01/20 [address] [place], [place] [phone] Bhanu Godoy MD Assigned PCP 10/20/18 02/28/22 [address] [place], [place] [phone] documented as of this encounter
--- OUTSIDE RECORDS SUMMARY | 2022-08-10 10:55 | XMS_ITS | Encounter Summary ---
:1965 Author Organization [facility] Address [address] [place] [address] Care Team Providers Name Role Phone Jeremie Perkins DO Primary Care Provider No Ref-Primary, Physician Primary Care Provider [phone] Bhanu Godoy MD Unavailable Bhanu Godoy MD Primary Care Provider Bhanu Godoy MD Unavailable Jeremie Perkins DO Primary Care Provider Adams Dove MD Unavailable [phone] Encounter Details Date Type Department Care Team Description 05/17/2018 Anesthesia - [facility] Oumar Macias MD [place] [id number] [place], [place] [phone] Social History Tobacco Use Types Packs/Day Years [...] with No / Unsure 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 documented as of this encounter OR Notes Anesthesia Postprocedure Evaluation - Piotr Cesar MD - 05/17/2018 11:14 AM CDT Patient: Mariia Culver CYSTOSCOPY RIGHT URETEROSCOPY WITH HOLMIUM LASER STANDBY RIGHT URETERAL STONE EXTRACTION RIGHT STENTPLACEMENT Anesthesia type: general Patient location: PACU Last vitals: Vitals: 05/17/18 1120 BP: 132/60 Pulse: Resp: 16 Temp: SpO2: 98% Post vital signs: stable Level of consciousness: [...] event Additional Notes: Anesthesia Preprocedure Evaluation - Piotr Cesar MD - 05/17/2018 8:07 AM CDT Anesthesia Evaluation Patient summary reviewed No history of anesthetic complications Airway Mallampati: II Pulmonary - normal exam (+) pneumonia, (-) COPD, asthma, shortness of breath, recent URI, sleep apnea, not a smoker Cardiovascular - normal exam Exercise tolerance: > or = 4 METS (+) hypertension, dysrhythmias, , (-) past NH, CAD, hypercholesterolemia ROS comment: Presyncope and palpitation episodes and wore a zio patch and found to have unsustained VT (2 episodes with longest being 13 beats) and also 2 episodes of SVT February 2018 - followed up w/ cardiology and had ACT monitor and found to only have sinus tach (max HR 120) NM Stress 02/09/18: Perfusion: The stress perfusion images are normal, and resting images with artifact. FUNCTION Calculated via Gated SPECT Post Stress LV EF: 66 % EDV: 41 ml EDVI: 18 ml/m?? ESV: 14 ml ESVI: 6 ml/m?? LV Size and Function: Normal left ventricular size and systolic function with a calculated LVEF of 66%. LV Regional Function: Possible Septal?hypokinesis. Neuro/Psych (+) neuromuscular disease, (-) no seizures, no CVA, no depression, no anxiety/panic attacks, no dementia, no chronic pain Comments: Migraines; s/p cervical fusion Endo/Other (+) hypothyroidism, obesity, (-) no diabetes, arthritis GI/Hepatic/Renal (+) GERD well controlled, (-) renal disease, bowel prep, esophageal disease Other findings: Diagnosis Date ??? Disk bulges with stenosis above the fusion 06/17/2012 ??? GERD (gastroesophageal reflux disease) 08/12/2012 ??? History of nephrolithiasis diagnosed at age 42. ??? Hypothyroidism 08/12/2012 ??? Left ankle posterior impingement 09/28/2011 ??? Migraines 04/06/2011 ??? Obesity (BMI 30-39.9) 08/12/2012 ??? Pancreatitis ??? Shoulder impingement syndrome 08/17/2011 , Past Surgical History: Procedure Laterality Date ??? CERVICAL DISKECTOMY 11/2011 ??? CERVICAL FUSION 2011 C5-C6 ??? CHOLECYSTECTOMY 2000 ??? Cysto, R URS with basket extraction, R ureteral stent placement Polcari ??? HAND FINGER SURGERY left index finger ??? 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 Relationship Specialty Start Date End Date Jeremie Perkins DO PCP - General Family Practice 08/29/17 11/14/18 No Ref-Primary, PCP - General 11/15/18 12/20/18 Physician Bhanu Godoy MD PCP - Assigned PCP 10/20/18 12/27/18 [id number] [place], [place] [phone] Bhanu Godoy MD PCP - General Family Practice 12/21/18 01/01/20 [address] [place], [place] [phone] Jeremie Pekrins DO PCP - General Family Practice 01/02/20 [facility] [address] [place] [phone] Bhanu Godoy MD Assigned PCP 10/20/18 02/28/22 [address] [place], [place] [phone] Adams Dove Assigned Rheumatology 08/16/20 09/07/20 MD Jake Provider [facility] [address] [place] [address] documented as of this encounter
--- OUTSIDE RECORDS SUMMARY | 2022-08-10 10:55 | XMS_ITS | Encounter Summary ---
:1965 Author Organization [facility] Address [address] [place] [address] Care Team Providers Name Role Phone Jeremie Perkins DO Primary Care Provider Reason for Visit Reason Comments Headache Encounter Details Date Type Department Care Team Description 08/29/2017 Emergency [facility] Memo Paniagua O ther migraine without [facility] MD status migrainosus, [address] [facility] [place] [phone] [facility] [phone] [place], [place] [address] (Wo rk) Social History [...] Sign Reading Time Taken Comments Blood Pressure 145/88 08/29/2017 8:40 PM STEAM BONE PRESS TENDER Pulse 101 08/29/2017 7:54 PM STEAM BONE PRESS TENDER Temperature 36.7 ??C (98.1 ??F) 08/29/2017 7:54 PM STEAM BONE PRESS TENDER Respiratory Rate 16 08/29/2017 7:54 PM STEAM BONE PRESS TENDER Oxygen Saturation 97% 08/29/2017 10:45 PM STEAM BONE PRESS TENDER Inhaled Oxygen Concentration - - Weight 97.5 kg (215 lb) 08/29/2017 9:59 PM STEAM BONE PRESS TENDER Height - - Body Mass Index 33.67 07/21/2013 10:38 PM CDT documented in this encounter Discharge Instructions Discharge InstructionsMemo Paniagua MD - 08/29/2017 10:55 PM STEAM BONE PRESS TENDER Please make an appointment to follow up with [facility] in 5-7 days even if entirely better. Discharge Instructions Headache You were seen today for a headache. Headaches may be caused by many different things such as muscle tension, sinus inflammation, anxiety and stress, having too little sleep, too much alcohol, some medical conditions or injury. You may have a migraine, which is caused by changes in the blood vessels inyour head. At this time your provider does not find that your headache is a sign of anything dangerous or life-threatening. However, sometimes the signs of serious illness do not show up right away. Generally, every Emergency Department visit should have a follow-up clinic visit with either a primary or a specialty clinic/provider. Please follow-up as instructed by your emergency provider today. Return to the Emergency Department if: ??? You get a new fever of 100.4??F or higher. ??? Your headache gets much worse. ??? You get a stiff neck with your headache. ??? You get a new headache that is significantly different or worse than headaches you have had before. ??? You are vomiting (throwing up) and cannot keep food or water down. ??? You have blurry or double vision or other problems with your eyes. ??? You have a new weakness on one side of your body. ??? You have difficulty with balance which is new. ??? You or your family thinks you are confused. ??? You have a seizure. What can I do to help myself? Pain medications - You may take a pain medication such as Tylenol?? (acetaminophen), Advil??, Motrin?? (ibuprofen) or Aleve?? (naproxen). ??? Take a pain reliever as soon as you notice symptoms. Starting medications as soon as you start to have symptoms may lessen the amount of pain you have. ??? Relaxing in a quiet, dark room may help. ??? Get enough sleep and eat meals regularly. ??? You may need to watch for certain foods or other things which may trigger your headaches. Keeping a journal of your headaches and possible triggers may help you and your primary provider to identify things which you should avoid which may be causing your headaches. If you were given a prescription for medicine here today, be sure to read all of the information (including the package insert) that comes with your prescription. This will include important information about the medicine, its side effects, and any warnings that you need to know about. The pharmacist who fills the prescription can provide more information and answer questions you may have about the medicine. If you have questions or concerns that the pharmacist cannot address, please call or return to the Emergency Department. Remember that you can always come back to the Emergency Department if you are not able to see your regular provider in the amount of time listed above, if you get any new symptoms, or if there is anything that worries you. M BONE PRESS TENDER documented in this encounter Medications at Time of Discharge Medication Sig Dispensed Refills Start Date End Date mdofpjm-rozxtmjdswvsz-x Take 2 tablets by 0 affeine (EXCEDRIN mouth every 8 hours as MIGRAINE) 250-250-65 MG needed per tablet VITAMIN D, Take 2,000 Units by 0 CHOLECALCIFEROL, PO mouth daily. butalbital-acetaminophe Take 1-2 tablets by 20 tablet 0 02/201701/05/2018 n-caffeine mouth every 6 hours as (FIORICET/ESGIC) needed 50-325-40 MG per tablet estrogens-methylTESTOST Take 1 tablet by mouth 0 2018 ERone (ESTRATEST HS) daily. 0.625-1.25 MG per tablet Levothyroxine Sodium Take 175 mcg by mouth 0 11/15/2018 (SYNTHROID PO) daily. multivitamin, Take 1 tablet by mouth 30 each 0 03/30/2013 2018 therapeutic with daily. minerals (MULTI-VITAMIN) TABSIndications: Dietary supplement discontinued PARoxetine HCl (PAXIL Take 90 mg by mouth 0 2018 PO) daily. Patient takes 3 tabs of 30mg=90mg SUMAtriptan Succinate Inject 6 mg 0 Refill (IMITREX Subcutaneous once. May STATDOSE REFILL) 6 repeat in 1 hr as MG/0.5ML SOLN needed, do not exceed 2 doses per 24hrs traMADol (ULTRAM) 50 MG Take 1 tablet (50 mg) 30 tablet 0 0 07/23/2013 2018 tabletIndications: by mouth every 6 hours Chronic abdominal pain as needed for pain documented as of this encounter ED Notes Vangie Solares RN - 08/29/2017 11:25 PM CST AVS reviewed. M BONE PRESS TENDER Zachariah Elias RN - 08/29/2017 7:55 PM CST ABC's intact. Alert and oriented x4. Pt states she began to have headache on Wednesday, worsening since. Today unable to keep meds down. Hx of migraines, but today is different. M BONE PRESS TENDER Memo Paniagua MD - 08/29/2017 7:46 PM CST History Chief Complaint: Headache HPI Alphonso Culver is a 52 year old female who presents with headache. Patient states that she has a long-standing history of recurrent migraines. 2 days prior to arrival she had the gradual onset of headache. The headache is global. She took her typical home medications without improvement of pain. Thepain is constant, not radiating. She denies any fevers, eye pain, jaw claudication, numbness, weakness. There is no visual disturbance. She has no other complaints concerning this time other than nausea and vomiting that occurred tonight thus prompting her ED visit.. Allergies: None Medications: zcktcdbduj-uaegcesostsln-ealbpafi (FIORICET/ESGIC) 50-325-40 MG per tablet traMADol (ULTRAM) 50 MG tablet imftase-hzvzxgclhesfk-iqqnbrnr (EXCEDRIN MIGRAINE) 250-250-65 MG per tablet multivitamin, therapeutic with minerals (MULTI-VITAMIN) TABS PARoxetine HCl (PAXIL PO) Levothyroxine Sodium (SYNTHROID PO) estrogens-methylTESTOSTERone (ESTRATEST HS) 0.625-1.25 MG per tablet VITAMIN D, CHOLECALCIFEROL, PO SUMAtriptan Succinate Refill (IMITREX STATDOSE REFILL) 6 MG/0.5ML SOLN Past Medical History: Past Medical History: Diagnosis Date ??? Migraine ??? Pancreatitis ??? Thyroid disease Past Surgical History: Past Surgical History: Procedure Laterality Date ??? CHOLECYSTECTOMY 1992 ??? CD MIXER SURGERY hysterectomy ??? [facility] UGI ENDOSCOPY W EUS 05/04/2013 Procedure: COMBINED ENDOSCOPIC ULTRASOUND, ESOPHAGOSCOPY, GASTROSCOPY, DUODENOSCOPY (EGD); Surgeon:Greta Joel MD; Location: [facility] ??? ORTHOPEDIC SURGERY cervical spine fusion Family History: family history includes C.A.D. in her father; DIABETES in her brother, brother, brother, and sister;Respiratory in her father. Social History: reports that she has never smoked. She has never used smokeless tobacco. She reports that she drinks alcohol. She reports that she does not use illicit drugs. PCP: Jeremie Perkins Review of Systems Constitutional: Negative for fever. Gastrointestinal: Positive for nausea and vomiting. Skin: Negative for rash. Neurological: Negative for tremors, weakness and numbness. All other systems reviewed and are negative. Physical Exam Patient Vitals for the past 24 hrs: BP Temp Temp src Pulse Heart Rate Resp SpO2 Weight 08/29/17 2159 - - - - - - - 97.5 kg (215 lb) 08/29/172137 - - - - - - 98 % - 08/29/172136 - - - - - - 98 % - 08/29/172135 - - - - - - 98 % - 08/29/17 2040 145/88 - - - - - - - 08/29/17 1954 (!) 185/116 98.1 ??F (36.7 ??C) Oral 101 99 16 99 % - Physical Exam GENERAL: Patient appears in no obvious discomfort Resting comfortably in bed with no objective signs of pain HEENT: External ears are normal. Temporal arteries are non-tender. Oropharynx is moist, without lesions or trismus. Eyes: PERRL. EOMI. No corneal clouding. NECK: Supple, no meningismus. Negative Brudzinski's sign. CV: Regular rate and rhythm. No murmurs, rubs or gallops. PULM: Clear to auscultation bilateral. No respiratory distress. No stridor or wheezing. ABD: Soft, non-tender, non-distended. No pulsatile masses. No rebound or guarding. MSK: No gross deformity to all four extremities. No significant joint effusions. LYMPH: No cervical lymphadenopathy. NEURO: A & O x 3. CN II-XII intact, speech is clear with no aphasia. Finger to nose within normal limits. No pronator drift. Strength is 5/5 in all 4 extremities. Sensation is intact. Normal muscular tone, no tremor. SKIN: Warm, dry and intact. PSYCH: Mood is good and affect is appropriate. Emergency Department Course Interventions: Medications prochlorperazine (COMPAZINE) injection 10 mg (10 mg Intravenous Given 08/29/172029) diphenhydrAMINE (BENADRYL) injection 25 mg (25 mg Intravenous Given 08/29/172030) dexamethasone (DECADRON) injection 15 mg (10 mg Intravenous Given 08/29/172030) 0.9% sodium chloride BOLUS (0 mLs Intravenous Stopped 08/29/172138) metoclopramide (REGLAN) injection 10 mg (10 mg Intravenous Given 08/29/172124) diphenhydrAMINE (BENADRYL) injection 25 mg (25 mg Intravenous Given 08/29/172124) ketorolac (TORADOL) injection 15 mg (15 mg Intravenous Given 08/29/172124) LORazepam (ATIVAN) injection 1 mg (1 mg Intravenous Given 08/29/172124) promethazine (PHENERGAN) IV injection 25 mg (25 mg Intravenous Given 08/29/172205) lidocaine (XYLOCAINE) 4 % solution (2 mLs Nasal Given 08/29/172205) ketamine (KETALAR) injection 10 mg (10 mg Intravenous Given 08/29/172241) Emergency Department Course: Past medical records, nursing notes, and vitals reviewed. I performed an exam of the patient and obtained history, as documented above. I rechecked the patient. Findings and plan explained to the Patient and significant other. Patient was discharged home. Impression & Plan Medical Decision Makin52 year old female seen in the ED with gradual progression of headache. She has no features concerning for intracranial hemorrhage, intracranial mass, meningitis, dural sinus thrombosis, glaucoma or temporal arteritis. Findings are consistent with recurrent migraine. She received numerous medications in the emergency department without significant improvement of her pain. Despite this she looks well and has no objective signs of pain at rest. I offered her admission versus discharge home and close follow-up with neurology with prescription for Fioricet. She opted for discharge home. Patient to return to the ED for any worsening symptoms. Diagnosis: ICD-10-CM 1. Other migraine without status migrainosus, intractable G43.819 Discharge Medications: New Prescriptions ZYZLDBZUDI-CMDMDPIAPAXXO-PNOWHGIH (FIORICET/ESGIC) 50-325-40 MG PER TABLET Take 1-2 tablets by mouth every 6 hours as needed 08/29/2017 Memo Paniagua MD Matthews, Jeremiah R, MD 08/29/17 2307 M BONE PRESS TENDER documented in this encounter Plan of Treatment Not on filedocumented as of this encounter Visit Diagnoses Diagnosis Other migraine without status migrainosu s, intractable documented in this encounter Administered Medications Inactive Administered Medications - up to 3 most recent administrations Medication Order MAR Action Action Date Dose Rate Site 0.9% sodium chloride BOLUS New Bag 08/29/2017 8:30 PM STEAM BONE PRESS TENDER 1,000 mLs 1000 mL/hr Intravenous, 1,000 mL, ONCE, at 1,000 mL/hr, Administer over 1 Hours, On 08/29/17 at 2012, For 1 dose dexamethasone (DECADRON) 10 MG/ML inject ion Starting on 08/29/17 at 2027, For 1 d bhavesh, Rikki Harrison : cabinet override For ordered doses up to 20 mg, give IV Push undiluted over 1 minute. dexamethasone (DECADRON) injection 15 mg Given 08/29/2017 8:31 PM STEAM BONE PRESS TENDER 10 mg 15 mg, Intravenous, ONCE, Administer over 1 Minutes, On 08/29/17 at 2012, For 1 dose, For ordered doses up to 20 mg, give IV Push undiluted over 1 minute. diphenhydrAMINE (BENADRYL) injection 25 mg Given 08/29/2017 8:31 PM STEAM BONE PRESS TENDER 25 mg 25 mg, Intravenous, ONCE, Administer over 1-2 Minutes, On 08/29/17 at 2013, For 1 dose, For ordered doses up to 50 mg, give IV Push undiluted. Give each 25mg over a minimum of 1 minute. Extend in non-emergency diphenhydrAMINE (BENADRYL) injection 25 mg Given 08/29/2017 9:25 PM STEAM BONE PRESS TENDER 25 mg 25 mg, Intravenous, ONCE, Administer over 1-2 Minutes, On 08/29/17 at 2110, For 1 dose, For ordered doses up to 50 mg, give IV Push undiluted. Give each 25mg over a minimum of 1 minute. Extend in non-emergency ketamine (KETALAR) injection 10 mg Given 08/29/2017 10:42 PM STEAM BONE PRESS TENDER 10 mg 10 mg (rounded from 9.75 mg = 0.1 mg/kg ? 97.5 kg), Intravenous, ONCE, Administer over 2-5 Minutes, On 08/29/17 at 2155, For 1 dose, Max dose for analgesia on general care nursing unit: 0.2 mg/kg or 20 mg, whichever is lower. ketorolac (TORADOL) injection 15 mg Given 08/29/2017 9:25 PM STEAM BONE PRESS TENDER 15 mg 15 mg, Intravenous, ONCE, Administer over 2 Minutes, On 08/29/17 at 2110, For 1 dose, For ordered doses up to 30 mg, give IV Push undiluted over 2 minutes. lidocaine (XYLOCAINE) 4 % solution Given 08/29/2017 10:06 PM STEAM BONE PRESS TENDER 2 mLs Nasal, ONCE, On 08/29/17 at 2155, For 1 dose, Apply to nasal; 1 cc to each nostril LORazepam (ATIVAN) injection 1 mg Given 08/29/2017 9:25 PM STEAM BONE PRESS TENDER 1 mg 1 mg, Intravenous, ONCE, On 08/29/17 at 2110, For 1 dose, For IV PUSH: Dilute with equal volume of NS. For ordered doses up to 4 mg give IV Push. Administer each 2mg over 1-5 minutes. metoclopramide (REGLAN) injection 10 mg Given 08/29/2017 9:25 PM STEAM BONE PRESS TENDER 10 mg 10 mg, Intravenous, Administer over 2 Minutes, ONCE, On 08/29/17 at 2110, For 1 dose, Avoid use if patient has full bowel obstruction or perforation. Irritant. For ordered doses up to 10 mg, give IV Push undiluted over 2 minutes. prochlorperazine (COMPAZINE) injection 1 0 mg Given 08/29/2017 8:30 PM STEAM BONE PRESS TENDER 10 mg 10 mg, Intravenous, ONCE, Administer over 1-2 Minutes, On 08/29/17 at 2012, For 1 dose, For ordered doses up to 10 mg, give IV Push undiluted. Each 5mg over 1 minute. promethazine (PHENERGAN) IV injection 25 mg Given 08/29/2017 10:06 PM STEAM BONE PRESS TENDER 25 mg 25 mg, Intravenous, ONCE, On 08/29/17 at 2155, For 1 dose, Maximum rate is 25 mg/minute. WARNING FOR IV Administration: Intra-arterial injection causes tissue necrosis. STOP administration if pain or discomfort. Vesicant. Dilute 25 mg with 10 mL of normal saline in a syringe. Resulting concentration = 2.5 mg/ mL. Administer over 3-5 minutes. High risk of tissue necrosis with extravasation. documented in this encounter Active and Recently Administered Medications Due to Daylight Saving Time, this section may contain times in both CDT and STEAM BONE PRESS TENDER. Scheduled Medication Order 08/27/2017 08/28/2017 08/29/2017 0.9% sodium chloride BOLUS (COMPLETED) 2029 (New Bag - Provider: Rikki Harrison, MARCELA)2138 (Stopped - Provider: Navi Faith RN) Intravenous, 1,000 mL, ONCE, at 1,000 mL /hr, Administer over 1 Hours, 08/29/17 at 2012, For 1 dose dexamethasone (DECADRON) injection 15 mg (COMPLETED) 2030 (Given - Provider: Rikki Harrison, MARCELA) 15 mg, Intravenous, ONCE, Administer ove r 1 Minutes, 08/29/17 at 2012, For 1 dose, For ordered doses up to 20 mg, give IV Push undiluted over 1 minute. diphenhydrAMINE (BENADRYL) injection 25 mg (COMPLETED) 2030 (Given - Provider: Rikki Harrison, MARCELA) 25 mg, Intravenous, ONCE, Administer ove r 1-2 Minutes, 08/29/17 at 2012, For 1 dose, For ordered doses up to 50 mg, give IV Push undiluted. Give each 25mg over a minimum of 1 minute. Extend in non-emergency diphenhydrAMINE (BENADRYL) injection 25 mg (COMPLETED) 2124 (Given - Provider: Navi Faith RN) 25 mg, Intravenous, ONCE, Administer ove r 1-2 Minutes, 08/29/17 at 2109, For 1 dose, For ordered doses up to 50 mg, give IV Push undiluted. Give each 25mg over a minimum of 1 minute. Extend in non-emergency ketamine (KETALAR) injection 10 mg (COMPLETED) 2241 (Given - Provider: Rikki Harrison, MARCELA) 10 mg (rounded from 9.75 mg = 0.1 mg/kg ? 97.5 kg), Intravenous, ONCE, Administer over 2-5 Minutes, 08/29/17 at 2154, For 1 dose, Max dose for analgesia on general care nursing unit: 0.2 mg/kg or 20 mg, whichever is lower. ketorolac (TORADOL) injection 15 mg (COMPLETED) 2124 (Given - Provider: Navi Faith RN) 15 mg, Intravenous, Administer over 2 Mi nutes, ONCE, 08/29/17 at 2109, For 1 dose, For ordered doses up to 30 mg, give IV Push undiluted over 2 minutes. lidocaine (XYLOCAINE) 4 % solution (COMPLETED) 2205 (Given - Provider: Rikki Harrison, MARCELA) Nasal, ONCE, 08/29/17 at 2154, For 1 dose, Apply to nasal; 1 cc to each nostril LORazepam (ATIVAN) injection 1 mg (COMPLETED) 2124 (Given - Provider: Navi Faith, RN) 1 mg, Intravenous, ONCE, 08/29/17 at 2109, For 1 dose, For IV PUSH: Dilute with equal volume of NS. For ordered doses up to 4 mg give IV Push. Administer each 2mg over 1-5 minutes. metoclopramide (REGLAN) injection 10 mg (COMPLETED) 2124 (Given - Provider: Navi Faith, RN) 10 mg, Intravenous, Administer over 2 Mi nutes, ONCE, 08/29/17 at 2109, For 1 dose, Avoid use if patient has full bowel obstruction or perforation. Irritant. For ordered doses up to 10 mg, give IV Push undiluted over 2 minutes. prochlorperazine (COMPAZINE) injection 10 mg (COMPLETED) 2029 (Given - Provider: Rikki Harrison RN) 10 mg, Intravenous, ONCE, Administer ove r 1-2 Minutes, 08/29/17 at 2013, For 1 dose, For ordered doses up to 10 mg, give IV Push undiluted. Each 5mg over 1 minute. promethazine (PHENERGAN) IV injection 25 mg (COMPLETED) 2205 (Given - Provider: Rikki Harrison RN) 25 mg, Intravenous, ONCE, 08/29/17 at 2155, For 1 dose, Maximum rate is 25 mg/minute. WARNING FOR IV Administration: Intra-arterial injection causes tissue necrosis. STOP administration if pain or discomfort. Vesicant. Dilute 25 mg with 10 mL of normal saline in a syringe. Resulting concentration = 2.5 mg/ mL. Administer over 3-5 minutes. High risk of tissue necrosis with extravasation. documented in this encounter Care Teams Colliery Clerk Relationship Specialty Start Date End Date Jeremie Perkins DO PCP - General Family Practice 08/29/17 11/14/18 documented as of this encounter
--- OUTSIDE RECORDS SUMMARY | 2022-08-10 10:55 | XMS_ITS | Encounter Summary ---
:1965 Author Organization [facility] Address [address] [place] [id number] Care Team Providers Name Role Phone Jeremie Perkins DO Primary Care Provider Encounter Details Date Type Department Care Team Description 05/17/2018 Hospital Encounter [facility] Grabiel Johnson MD [facility] UROLOGIC [address] [place] [phone] [address] [place], [place] [address] (Wo rk) Social History Tobacco Use Types [...] - Inhaled Oxygen Concentration - - Weight 109.5 kg (241 lb 6.4 oz) 05/17/2018 7:47 AM CDT Height 167.6 cm (5' 6) 05/17/2018 7:47 AM CDT Body Mass Index 38.96 05/17/2018 7:47 AM CDT documented in this encounter Medications at Time of Discharge Medication Sig Dispensed Refills Start Date End Date eaklymz-xinblznsjhnbm-i Take 2 tablets by 0 affeine (EXCEDRIN mouth every 8 hours as MIGRAINE) 250-250-65 MG needed per tablet GABAPENTIN PO Take 600 mg by mouth 3 0 times daily VITAMIN D, Take 2,000 Units by 0 CHOLECALCIFEROL, PO mouth daily. Levothyroxine Sodium Take 175 mcg by mouth 0 11/15/2018 (SYNTHROID PO) daily. metoprolol succinate ER Take 100 mg by mouth 0 12/08/2018 (TOPROL-XL) 100 MG 24 hr tablet metoprolol succinate ER Take 25 mg by mouth 3 09/201811/15/2018 (TOPROL-XL) 25 MG 24 hr daily tablet SUMAtriptan Succinate Inject 6 mg 0 Refill (IMITREX Subcutaneous once. 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 [employer] M[employer] UNDERWRITER Med List Medication Sig Note Last Dose ??? acetaminophen-caffeine (EXCEDRIN) 500-65 mg Tab per tablet Take 2 tablets by mouth every 6 (six)hours as needed (headache, pain). Past Month at Unknown time ??? cholecalciferol, vitamin D3, 5,000 unit Tab Take 5,000 Units by mouth daily. 05/16/2018 at Unknown time ??? DULoxetine (CYMBALTA) 60 MG capsule Take 60 mg by mouth 2 (two) times a day. 05/16/2018 at Unknown time ??? gabapentin (NEURONTIN) 300 MG capsule Take 600 mg by mouth 2 (two) times a day. 05/16/2018 at Unknown time ??? hydrOXYzine pamoate (VISTARIL) 50 MG capsule Take 50 mg by mouth every 8 (eight) hours as needed. Past Week at Unknown time ??? levothyroxine (SYNTHROID, LEVOTHROID) 200 MCG tablet Take 200 mcg by mouth Daily at 6:00 am. 05/16/2018 at Unknown time ??? metoprolol succinate (TOPROL-XL) 100 MG 24 hr tablet Take 100 mg by mouth daily. 05/17/2018 at 0400 ??? multivitamin therapeutic tablet Take 1 tablet by mouth daily. 05/16/2018 at Unknown time ??? oxyCODONE-acetaminophen (PERCOCET) 5-325 mg per tablet Take 1 tablet by mouth every 4 (four) hours as needed for pain. 05/17/2018: Taking about 4-6 tablets per 24 hours 05/16/2018 at Unknown time ??? sulfamethoxazole-trimethoprim (SEPTRA DS) 800-160 mg per tablet Take 1 tablet by mouth 2 (two) times a day. 05/17/2018 at am ??? tamsulosin (FLOMAX) 0.4 mg cap Take 0.4 mg by mouth Daily after breakfast. 05/16/2018 at Unknown time ??? tiZANidine (ZANAFLEX) 4 MG tablet Take 4 mg by mouth every 6 (six) hours as needed. 05/16/2018 aths Information source(s): Patient, Clinic records, Hospital records and CareEverywhere/SureScripts Patient was asked about OTC/herbal products specifically. REMOTE M[employer]GAGE UNDERWRITER med list reflects this. Based on the pharmacist???s assessment, the REMOTE M[employer]GAGE UNDERWRITER med list information appears reliable Allergies were reviewed, assessed, and updated with the patient. Patient does not use any multi-dose medications prior to admission. Thank you for the opportunity to participate in the care of this patient. Nisha Stern PharmD 05/17/2018 8:29 AM documented in this encounter H&P Notes Grabiel Johnson MD - 05/17/2018 8:17 AM CDT Urology H\P See complete written H/P. Also, no change since last H\P and cardiology evaluation. Sona GUZMAN documented in this encounter Miscellaneous Notes Op Note - Grabiel Johnson MD - 05/17/2018 9:55 AM CDT Operative Note Name: Mariia Culver Location: [facility] Main OR Procedure Date: 05/17/2018 PCP: Jeremie Perkins MD PROCEDURE: #1 right flexible ureteroscopy and basket extraction renal calculus, 5 mm #2 right rigid ureteroscopy and basket extraction right mid ureteral calculus, 5 mm #3 cystoscopy with right ureteral stent placement, 6??26 JJ #4 cystoscopy with right retrograde pyelogram Pre-Procedure Diagnosis: Right ureteral stone [N20.1] Right kidney stone Right hydroureteronephrosis Right back pain Post-Procedure Diagnosis: Same Surgeon(s): Grabiel Johnson MD Anesthesia Type: General Past Medical History: Diagnosis Date ??? Angina pectoris (H) ??? Hypertension ??? Pancreatitis ??? Syncope and collapse There are no active problems to display for this patient. Operative Report: The patient was prepped and draped in a dorsal lithotomy position under adequate general anesthesia.Pause was done identifying the right side by marking on the hand and also by review of films in the room. The cystoscope was placed in the bladder was examined and examination was normal. The right ureteral orifice was identified and cannulated with a 6 Slovenian open- ended ureteral catheter. Using 20 cc of Hypaque contrast retrograde pyelogram was obtained which demonstrated a filling defect in the right mid ureter with hydroureteronephrosis behind it. A 0.035 guidewire was then placed through the open-ended catheter into the renal pelvis. The cystoscope and the open-ended catheter were then removed. The rigid ureteroscope was then placed alongside the guidewire and manipulated up to the stone without difficulty. The stone was then engaged with a 1.9 Slovenian basket and removed out difficulty and sent for permanent section labeled right ureteral stone. Inspection of the ureter demonstrated no other stones and no perforation or significant damage to the ureter. Therefore the 10/07 ureteral access sheath was placed over the guidewire into the renal pelvis. The flexible ureteroscope was then placed through the access sheath and all calyces were inspected. 2 stones were in the collecting system. The rest were parenchymal. The basket was used to engage both stones, the largest being 5 mm and these were sent with the other ureteral stone for analysis. Contrast was injected no extravasation was noted. The ureteroscope and access sheath were removed and a 6 x 26 double-J indwelling ureteral stent was placed up and over the guidewire into the renal pelvis. The guidewire was pulled and the stent was noted to curl in both the renal pelvis and the bladder. Bladder was drained. Patient tolerated the procedure well went to the recovery room in good condition. The ureteral stent will be removed in 1 week. Estimated Blood Loss: 1 mL from 05/17/2018 9:03 AM to 05/17/2018 9:55 AM Specimens: ID Type Source Tests Collected by Time Destination 1 : Calculus Ureteral Stone, Right STONE ANALYSIS (CASA) Grabiel Johnson MD 05/17/2018 0942 Implants: Implant Name Type Inv. Item Serial No. 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 LRB No. Used Action STENT PERCUFLEX PLUS [id number] - [id number] DIRECTOR PRODUCT DEVELOPMENT / Urology Implants STENT PERCUFLEX PLUS [id number] [employer] [id number] Right 1 Implanted Grabiel Johnson Date: 05/17/2018 Time: 9:55 AM documented in this encounter Plan of Treatment Not on filedocumented as of this encounter Procedures Procedure Name Priority Date/Time Associated Comments Diagnosis XR RETROGRADE Routine 05/17/2018 10:01 AM Results for this PYELOGRAM W/WO KUB > CDT procedu re are in 1 HR the results section. STONE ANALYSIS Routine 05/17/2018 9:42 AM Results for this CDT procedure are i n the results section. documented in this encounter Results XR Retrograde Pyelogram wwo KUB > 1 Hr (05/17/2018 10:01 AM CDT) Anatomical Region Laterality Modality Abdomen/Pelvis Other Specimen (Source) Anatomical Location Collection Method / Collectio n Time Received Time / Laterality Volume Narrative 05/17/2018 10:05 AM CDT XR RETROGRADE PYELOGRAM W OR WO KUB INTRAOPERATIVE 05/17/2018 10:01 AM INDICATION: Kidney stone TECHNIQUE: Exam performed by Urologist. COMPARISON: None. FLUOROSCOPIC TIME: 1.3 minutes NUMBER OF IMAGES: 3 FINDINGS: No hydronephrosis. A right ure teral stent was placed. See operative report for details. Procedure Note Lev Murphy MD - 04/01/2021Fo rmatting of this note might be different from the original. XR RETROGRADE PYELOGRAM W OR WO KUB INTR AOPERATIVE 05/17/2018 10:01 AM INDICATION: Kidney stone TECHNIQUE: Exam performed by Urologist. COMPARISON: None. FLUOROSCOPIC TIME: 1.3 minutes NUMBER OF IMAGES: 3 FINDINGS: No hydronephrosis. A right ure teral stent was placed. See operative report for details. Grabiel Johnson MD IMG DIAGNOSTIC IMAGING ORDER EMILEE Stone analysis (05/17/2018 9:42 AM CDT) [facility] Method Time Signature Source Right Ureter 05/21/2018 [facility] 2:42 PM CDT LABORATORY 1St 90% Calcium 05/21/2018 [facility] Constituent: oxalate 2:42 PM CDT LABORATORY monohydrate 2Nd 10% Calcium 05/21/2018 [facility] Constituent: oxalate 2:42 PM CDT LABORATORY dihydrate Comment: ADDITIONAL INFORMATIO N This test was developed and its performa nce characteristics determined by [facility] in a manner co nsistent with CLIA requirements. This test has not been cathy ared or approved by the U.S. Food and Drug Administration. Test Performed by: [facility] [address], [place] [address] Specimen Anatomical Collection Method Collection Time Receive d Time (Source) Location / / Volume Laterality Calculus STRUCTURE OF RIGHT 05/17/2018 9:42 AM 1:09 specimen URETER / Unknown CDT PM CDT (specimen) Grabiel Johnson MD LAB - BODY FLUIDS ORDERABLES Performing Organization Address City/State/ZIP Code Phon e Number [facility] [place] [address] [address] [facility] MEDICAL LAB[facility]ATORY [address] [place] [address] documented in this encounter Visit Diagnoses Not on filedocumented in this encounter Care Teams Financial Planning Analyst Relationship Specialty Start Date End Date Jeremie Perkins DO PCP - General Family Practice 08/29/17 11/14/18 documented as of this encounter
--- OUTSIDE RECORDS SUMMARY | 2022-08-10 10:55 | XMS_ITS | Encounter Summary ---
:1965 Author Organization [facility] Address [address] [place] [id number] Care Team Providers Name Role Phone Yusef Lino MD Primary Care Provider Reason for Visit Reason Comments Abdominal Pain Auth/Cert - Closed Specialty Diagnoses / Procedures Referred By Contact Refer red To Contact Diagnoses Pancreatitis Nausea and vomiting Chronic abdominal pain Pain Intractable abdominal pain Dietary supplement discontinued [id number] Medical Surgical [address] [place], [place] [address] Phone: Fax: Referral ID Status Reason Start Date Expiration Date Visits Requ ested Visits Authorized Closed 07/22/2013 01/18/2014 Encounter Details Date Type Department Care Team Description 07/21/2013 - [facility] Bel Jones MD [facility] [address] [place], [place] [address] Intractable abdominal pain (Primary Dx); 07/23/2013 [place] [address] Medical [place]-Tabby Isaac DO [address] [place] [place] [address] Nausea and vomiting; Surgical Chronic abdominal pain; [address] Pain; [place], [place] Dietary suppl ement discontinued; [id number] Pancreatitis [phone] Social History Tobacco Use Types Packs/Day Years [...] Sign Reading Time Taken Comments Blood Pressure 97/57 07/23/2013 7:25 AM CDT Pulse - - Temperature 35.9 ??C (96.6 ??F) 07/23/2013 7:25 AM CDT Respiratory Rate 16 07/23/2013 7:25 AM CDT Oxygen Saturation 92% 07/23/2013 7:25 AM CDT Inhaled Oxygen Concentration - - Weight 101.5 kg (223 lb 11.2 oz) 07/21/2013 10:38 PM CDT Height 170.2 cm (5' 7) 07/21/2013 10:38 PM CDT Body Mass Index 35.04 07/21/2013 10:38 PM CDT documented in this encounter Discharge Summaries Kaitlin Holt MD - 07/23/2013 4:06 PM CDT PRIMARY CARE PHYSICIAN: Dr. Yusef Lino. Discharge time greater than 30 minutes. ADMITTING DIAGNOSES: 1. Chronic pain with acute pain crisis. 2. History of chronic pancreatitis. 3. Nausea and vomiting. 4. Migraine headaches. DISCHARGE DIAGNOSES: 1. Chronic pain with opiate dependence and pain medication-seeking behavior. 2. History of chronic pancreatitis. 3. Nausea and vomiting, resolved. 4. Migraine headaches, resolved. SECONDARY DIAGNOSES: 1. H/o cholecystectomy. 2. Depression. 3. Hypothyroidism. PROCEDURES: Chest x-ray, 2 views, 07/21/2013. Impression: Negative, no infiltrate. CONSULTATIONS: None. REASON FOR HOSPITALIZATION: Richar Culver is a 48-year-old female who was recently admitted to our facility on 06/24/2013 and discharged on 06/26/2013. The patient has a history of chronicpancreatitis and on that admission was admitted for acute pain control. She follows with Dr. Perez with [facility] and saw him 2 weeks prior to follow up on her chronic pancreatitis. Apparently at that time, he did not feel that it was necessary to stent her pancreatic device, which hehad considered in the past. Per admitting physician's notes, the patient had stated receiving pain medications from multiple sources. She indicated that she did not have pain meds for her chronic abdominal pain over the last 2-3 days prior to coming to the hospital, so her symptoms had exacerbated. The patient denied any fever or chills on admission. The patient had complained of 1 episode of emesis earlier that afternoon, but had been since able to tolerate liquids, though she had pain. She also complained of some dizziness when going from lying to standing quickly. She denied chest pain and a history of deep venous thrombosis. The patient was admitted to the Hospitalist Service for further management of acute pain crisis along with her chronic pain. Admitting physician had initial discussion with the patient regarding pain management. The patient was very vague in her history and could not specify what pain medications she was receiving and from which providers and at what dates she was receiving these medications. On admission, it was not believed that the patient had acute pancreatitis as her physical exam was rather benign. The patient was essentially managed conservatively with symptomatic measures including antiemetics, pain control as needed, and IV fluids. The patient was advised by admitting physician and myselfto establish a pain contract with her primary care physician, Dr. Lino, from [facility] as he had been one of the main providers of previous narcotic pain medications, per patient. Thepatient had also complained of migraine headaches and she was given Imitrex as needed along with Fiorinal and Tylenol. By the next day of admission, her headache had simmered down and the patient only complained of nausea and vomiting and some abdominal pain. Of note, despite these symptoms and complaints, nursing staff did not note the patient had any vomiting episodes during the course of the admission. The patient was observed to be resting comfortably in bed and also moving around the room with ease in ambulation. I suspect a component of pain medication-seeking behavior and from the patient's own recall, she has received multiple pain medications from a variety of sources. It is unclear if the patient really was exhibiting any signs of withdrawal as her vital signs remained stable. The patient was advised that she would need to have ongoing follow up with her primary care physician and alsoher GI physician. If the patient's current problem were truly a persistent nausea and vomiting, thena gastric emptying study may be of benefit in the future, as determined by her GI physician. Patientwas deemed stable for discharge as she was tolerating clear liquids, and had no observation of emesis. She was resting comfortably and moving about the room comfortably. Patient had stable VS and lab findings at discharge. Patient is being discharged to home. The patient was provided a short-course oftramadol for pain control. The patient was re-advised to establish a pain contract with her primary care provider and seek consultation from her GI physician for further ongoing care. DISCHARGE PHYSICAL EXAMINATION: VITAL SIGNS: Temperature 96.8, fever. Blood pressure 112/52, respiratory rate 16, heart rate 93, O2 sat 93% on room air. GENERAL: The patient appears to be lying comfortably in bed, moving with ease in no acute cardiopulmonary distress, alert and oriented x3. HEENT: Normocephalic, atraumatic. Extraocular muscles intact. Pupils equal, round and reactive to light. Conjunctivae clear. LUNGS: Good air exchange, clear to auscultation bilaterally. No wheezes, rhonchi or rales. CARDIOVASCULAR: Regular rate and rhythm. S1 and S2 normal. No murmurs, rubs or gallops. No peripheral edema. ABDOMEN: Soft, obese, nondistended. The patient states having pain but upon palpation does not grimace. No rebound or guarding were noted. Positive normoactive bowel sounds. EXTREMITIES: Warm to touch with good peripheral pulses. SKIN: Dry, no rashes noted. NEUROLOGIC: Cranial nerves II through XII grossly intact. No focal neurologic deficits. COMPLICATIONS: None. CONDITION ON DISCHARGE: Stable. DIET: Full liquids, to be advanced as tolerated. ACTIVITY: Activity as tolerated. FOLLOW UP INSTRUCTIONS: The patient has been advised to establish a pain contract with her primary care provider, Dr. Lino. The patient is to follow up with primary care provider, Dr. Lino, within 1 week. The patient is to follow up with her GI physician, Dr. Perez, in 2-3 weeks as previously scheduled. DISCHARGE MEDICATIONS: 1. Estratest HS 0.625/1.25 mg per tablet, 1 tablet by mouth daily. 2. Excedrin Migraine 250/250/65 mg, 2 tablets by mouth every 8 hours as needed for severe headache. 3. Imitrex 6 mg solution, inject 6 mg subcutaneous once, may repeat in 1 hour as needed for migraineheadaches. 4. Multivitamin 1 table p.o. daily. 5. Paxil 90 mg p.o. daily. The patient has been on this chronic dose of Paxil as prescribed by outside provider. 6. Synthroid 175 mcg p.o. daily. 7. Vitamin D 2000 units by mouth daily. DISCONTINUED MEDICATIONS: 1. Acetaminophen scheduled doses. 2. Fiorinal. 3. Debary 5/325 mg. 4. Toradol 10 mg. 5. Oxycodone 5 mg immediate release. NEW MEDICATIONS: Tramadol 50 mg 1 tablet by mouth every 6 hours as needed for pain. Number 30 tablets, 0 refill. Prescription was electronically sent to the patient's preferred pharmacy at [place], [place]. DISPOSITION: The patient is being discharged to home. KAITLIN HOLT MD MT: [id number] Name: RICHAR CULVER MRN: [id number] Account: [id number] : 1965 Admit Date: Discharge Date: 07/23/2013 Document: [id number] cc: Yusef Perez MD documented in this encounter Medications at Time of Discharge Medication Sig Dispensed Refills Start Date End Date cufviao-clldlxokvipap-y Take 2 tablets by 0 affeine (EXCEDRIN mouth every 8 hours as MIGRAINE) 250-250-65 MG needed per tablet VITAMIN D, Take 2,000 Units by 0 CHOLECALCIFEROL, PO mouth daily. estrogens-methylTESTOST Take 1 tablet by mouth 0 [...] for pain documented as of this encounter Progress Notes Juana Tate RN - 07/25/2013 1:43 PM CDT I faxed information to Dr Lino's CTS of pt's hospitalization Eli MEDRANO CTS 4857 Faizan Rangel RN - 07/23/2013 1:43 PM CDT Reviewed discharge orders with the patient. Medication orders were reviewed and instructions given as to the frequency to take each med, along with when last medication was given. Patient belongings sent with patient. Patient instructed to follow up with primary physican with any further questions they may have. Patient states they understand discharge orders as they are written and has no questions.Patient was discharged at 1343 accompanied by family. Pt expressed being upset with the doctor aboutthe plan Kaitlin Holt MD - 07/22/2013 12:11 PM CDT [facility] Hospitalist Progress Note 07/22/2013 Name: Richar Culver Date of Admission: 07/21/2013 Assessment and Plan: Chronic pain/acute pain crisis - pt typically has chronic abd pain related to chronic pancreatitis (thought to be 2/2 to pancreatic divisum), and chronic back pain -- currently c/o vague abdominal pain, not congruent with exam, vague about previous pain meds and how often she is taking what -- continue pain control, IVF -- pt will need to establish a pain contract with her PCP Dr. Lino from [facility] Nausea and vomiting, not clearly an acute pancreatitis episode, but more likely secondary to narcotic withdrawal. --pt has run out of her scheduled narcotics --continue supportive care and IVF until symptoms improve Migraine headaches -- could be rebound headaches from not having access to narcotic meds -- continue Imitrex PRN, Fiorinal PRN Prophylaxis - PCDs Code Status - Full Code Interval History: Pt states having abd pain, diffuse, that is about the same as before. Vague in history despite further questioning. Earlier had nausea/vomiting, willing to try further clear liquids. Physical Exam: Heart Rate: 84 , Blood pressure 114/60, temperature 97.6 ??F (36.4 ??C), temperature source Oral, resp. rate 16, height 1.702 m (5' 7), weight 101.47 kg (223 lb 11.2 oz), SpO2 92.00%. I/O last 3 completed shifts: In: 593 [P.O.:120; I.V.:473] Out: 350 [Urine:350] Wt Readings from Last 1 Encounters: 07/21/13 101.47 kg (223 lb 11.2 oz) Exam: GENERAL: Appears comfortable, in no acute distress, alert & oriented x 3. PSYCH: Flat affect. EYES: EOMI, Clear conjunctiva. HEART: RRR, Normal S1, S2, with no peripheral edema. LUNGS: Good air entry, good inspiratory effort, clear to auscultation bilaterally. ABDOMEN: Soft, non-tender to soft/deep palpation, non-distended, no rebound or guarding, normoactivebowel sounds. SKIN: Dry to touch, no obvious rash on exposed areas. EXT: Warm to touch with signs of good peripheral perfusion. NEURO: Moving all extremities, grossly non-focal. Data: Lab 07/21/13 1714 WBC 6.7 HGB 14.6 HCT 41.3 MCV 92 PLT 355 Lab 07/21/13 1714 NA 141 POTASSIUM 3.7 CHLORIDE 105 CO2 22 ANIONGAP 14 GLC 87 BUN 24 CR 0.66 GFRESTIMATED >90 GFRESTBLACK >90 SEJAL 8.9 MAG -- PHOS -- PROTTOTAL 7.3 ALBUMIN 4.2 BILITOTAL 0.3 ALKPHOS 101 AST 27 ALT 40 Lab data and imaging from last 24 hours has been reviewed. Medications: I have reviewed this patient's current medications. documented in this encounter H&P Notes Tabby Hector DO - 07/21/2013 10:04 PM CDT H&P dictated. Pt presented with s/s of acute pain crisis. She ran out of her narcotic pain meds and has no narcotics for the last 48hrs. She presents with N/V and mild tachycardia (109 on admission). HR and symptoms have improved with IV dilaudid. Not clearly acute pancreatitis. Pain is mainly in the suprapubic area on exam---UA fairly unremarkable. Urine pending. Encouraged her to be on a pain contract and only receive pain meds from PCP at [facility] ( Dr. Lino). Pain team to see if still here on Wednesday. Tabby Hector DO - 07/21/2013 9:58 PM CDT REASON FOR ADMISSION: Abdominal pain. HISTORY OF PRESENT ILLNESS: The patient Richar Culver is a 48-year-old female patient who was recently admitted on 06/24/2013 and discharged on 06/26/2013. She has a history of chronic pancreatitis and at that time was admitted for acute pain control. She does follow with Dr. Perez with [facility] and saw him 2 weeks ago for followup of her chronic pancreatitis. Apparently he does not feel that it would be beneficial to stent her pancreatic divisum which has been considered in thepast. He thought a procedure such as a stent would only make her symptoms potentially worse, and shedeclined that. The patient states, I get pain meds from all over. She has not had any pain meds for her chronic abdominal pain over the last 2-3 days, and so her symptoms escalated today. She states that she ran out of pain meds. She presents now in an acute pain crisis. She has not had any fevers or chills. She had 1 emesis earlier this afternoon, but has otherwise been able to tolerate liquids although with increasing pain. She has some difficulty with shortness of breath and some dizziness when going from lying to standing quickly. She has no chest pain or chest heaviness and denies a history of DVT. In the Emergency Room the patient was given IV Dilaudid and has felt better. She denies any dysuria or hematuria. She reports her pain now is mainly suprapubic. She has chronic epigastric and upper back pain which is her normal pancreatitis pain. She denies having a Pain Contract with her primary careprovider Dr. Lino and has been seen in multiple Emergency Rooms and Urgent Care Centers for pain meds per her report. She states she fills all prescriptions at [facility], however. She denies sick contacts. ALLERGIES: No known drug allergies. HOME MEDICATIONS: 1. The patient cannot tell me what pain meds she has been taking on a regular basis. Per her list she has prescription for oxycodone and Vicodin. 2. She has Fiorinal as well to take 1 capsule every 4 hours p.r.n. and took 2 of these today. 3. Paxil 90 mg daily. 4. Levothyroxine 100 mcg daily. 5. Estratest 1 tab daily. 6. Imitrex injection 6 mg daily p.r.n. PAST MEDICAL HISTORY: 1. Chronic pancreatitis thought secondary to pancreatic divisum, although this has not been diagnosed through [facility]. 2. Chronic abdominal pain with chronic narcotic use. 3. Hypothyroidism. 4. Depression. 5. Migraine headaches. 6. Cholecystectomy. 7. Upper endoscopy with endoscopic in 04/2013. SOCIAL HISTORY: The patient is , unemployed, attempting to apply for Disability. No significant tobacco use noted, no recent alcohol use reported. FAMILY HISTORY: No new changes. Her father has coronary disease, and there is diabetes in multiple siblings. REVIEW OF SYSTEMS: Complete 14-point review was obtained with pertinent positives and negatives as per History of Present Illness above, remainder negative. PHYSICAL EXAMINATION: GENERAL: Alert, oriented, in no acute distress at rest, easily conversant. VITAL SIGNS: Blood pressure 110/78, respirations 16, saturations 95% on room air, heart rate 96, temperature 98.3. HEENT: Head is normocephalic, atraumatic. Pupils equal, round, reactive to light. Mucous membranes slightly dry to examination. No clear oral ulcers or thrush noted. NECK: No thyromegaly or JVD. LYMPHADENOPATHY: None palpable in cervical or clavicular area. HEART: Distant, but regular rate, no clear loud murmurs auscultated. S1 plus S2 is auscultated. LUNGS: Breath sounds diminished at the bases bilaterally, but no clear end- expiratory wheezes noted,no rale or rhonchi auscultated. The patient is able to take full respirations without difficulty or intercostal retractions. ABDOMEN: Soft, active bowel sounds present, no significant reproducible tenderness to deep palpation, no clear rebound, guarding or rigidity, no obvious hepatosplenomegaly, although examination is somewhat limited secondary to obesity. EXTREMITIES: No pretibial edema noted bilaterally, no calf tenderness or calf asymmetry noted bilaterally. SKIN: Dry to touch, no rashes or jaundice noted. PSYCHIATRIC: Somewhat depressed affect, slightly agitated with some questions, not tearful. NEUROLOGIC: Speech clear and appropriate, cranial nerves II-XII grossly intact to testing bilaterally, moving all extremities without difficulty or deficits, non-tremulous. LABORATORY DATA: 1. Electrolytes all within normal limits. 2. ALT, AST, bilirubin all within normal limits. 3. Lipase normal, albumin 4.2 and normal. 4. White count and hemoglobin within normal limits. 5. Urinalysis fairly unremarkable, 2 WBC/hpf, trace blood, otherwise negative, nitrites negative. IMAGING: None. ASSESSMENT AND PLAN: 1. Chronic pain/acute pain crisis. The patient is a 48-year-old female whose history is somewhat difficult to obtain as it is not consistent. However, it appears per her history that over the last 2 days she ran out of all her oral pain medications and was unable to do without pain medication for chronic abdominal pain. Because of this she appears to have had a pain crisis with exacerbation of her chronic abdominal pain. This is not clearly pancreatitis as she points more to the mid and suprapubic area and not the epigastric area. She has chronic upper back pain which is unchanged. She has requiredmultiple doses of IV Dilaudid and oral narcotics and still does not feel that she is able to go home. She has recently experienced lightheadedness and dizziness. These symptoms, as well as Her nausea and vomiting, are consistent with narcotic withdrawal. At this time we will need to admit her for IV pain medications and oral pain medications signs and symptoms of she is able to tolerate them. I think once she gets back on a scheduled regimen her nausea and vomiting symptoms should improve. She needs to establish a Pain Contract with her primary care provider Dr. Lino from [facility], and I emphasized this to her. She needs to get pasha schedule for her pain medications and not get multiple narcotic from multiple providers. 2. Nausea and vomiting, not clearly an acute pancreatitis episode, but more likely secondary to narcotic withdrawal. The patient has run out of her scheduled narcotics. We will offer supportive care and IV fluids until symptoms improve. 3. Migraine headaches. Currently she will get Imitrex p.r.n. She also could be having rebound headaches from not having access to her narcotic medications. 4. Full code status. TABBY HECTOR DO MT: [id number] Name: RICHAR CULVER Account: [id number] : 1965 Admitted: [id number] Document: [id number] cc: Yusef Perez MD documented in this encounter ED Notes Sabrina Chang RN - 07/21/2013 5:03 PM CDT Pt here with mid epigastric pain that wraps around to the back. Pt states she has a history of pancreatitis and has had 2 episodes since March. Pain started about a week ago and was seen in [facility] on Wednesday. No improvement since then and has been vomiting every day since Wednesday. With v omiting and not really eating, pt states SOB and dizziness upon standing or sitting up too fast. Resting HR 100. Bel Jones MD - 07/21/2013 5:03 PM CDT History Chief Complaint: Abdominal Pain HPI Richar Culver is a 48 year old female with PMH significant for chronic abdominal pain secondary to pancreatitis who represents to the emergency department for abdominal pain. Patient complains of epigastric abdominal pain that radiates through to her mid upper back, which began roughly 5-6 days ago. Her pain is not postprandial. Her pain has been associated with nausea and vomiting. She has been unable to tolerate significant amounts of food or fluids by mouth. She also reports having some mild intermittent diarrhea. She denies having black or bloody stools. She also reports having some mildly increased work of breathing. She denies having any chest pain, dyspnea, or light- headedness. Of note, she was seen at [facility] 5 days ago for her symptoms. A lipase, amylase, and bloodlabs were drawn and were negative. Patient expresses no other complaints concerns at this time. She notes her symptoms are similar to when she had bouts of pancreatitis in the past. Allergies: Nkda Medications: Toradol Excedrin Fiorinal Acetaminophen Multivitamin Paxil Synthroid Estratest Vitamin D Imitrex Problem List: Past Medical History: Pancreatitis Migraine Thyroid disease Past Surgical History: Cholecystectomy C-spine fusion Hysterectomy Family History: CAD Diabetes Marital Status: Social History: Tobacco use: negative. Alcohol use: negative. Review of Systems Constitutional: Negative for fever and chills. Respiratory: Positive for shortness of breath. Cardiovascular: Negative for chest pain. Gastrointestinal: Positive for nausea, vomiting, abdominal pain and diarrhea. Negative for constipation and blood in stool. Genitourinary: Negative. Musculoskeletal: Positive for back pain. Neurological: Negative for headaches. All other systems reviewed and are negative. Physical Exam First Vitals: BP: 110/83 mmHg Heart Rate: 109 Temp: 98.3 ??F (36.8 ??C) Resp: 20 SpO2: 96 % Physical Exam Constitutional: She is oriented to person, place, and time. Adult female sitting upright. HENT: Mouth/Throat: Oropharynx is clear and moist. Eyes: Conjunctivae normal are normal. Pupils are equal, round, and reactive to light. No scleral icterus. Cardiovascular: Normal rate, regular rhythm, normal heart sounds and intact distal pulses. Exam reveals no gallop and no friction rub. No murmur heard. Pulmonary/Chest: Effort normal and breath sounds normal. No respiratory distress. She has no wheezes. She has no rales. Abdominal: Soft. Tender in the epigastric area to deep palpation. No guarding, rebound, or masses. Musculoskeletal: Normal range of motion. She exhibits no edema and no tenderness. Neurological: She is alert and oriented to person, place, and time. She exhibits normal muscle tone. No focal abnormalities appreciated. Answers all questions and follows all commands appropriately. Skin: Skin is warm and dry. No rash noted. She is not diaphoretic. No erythema. Psychiatric: She has a normal mood and affect. EC:57:24. Rate: 97 bpm. Normal sinus rhythm. R axis: 59. Prolonged QT. Abnormal ECG. Read by Dr. Jones. Imaging: Radiographic findings were communicated with the patient who voiced understanding of the findings. Chest x-ray, 2 views: per radiologist: Negative, no infiltrate. Laboratory: Amylase: 45. CBC: normal [WBC 6.7 (wnl), HGB 14.6 (wnl), PLT 355 (wnl)]. UA with microscopic: trace blood, albumin 10, RBC 4, mucous present, few bacteria, otherwise normal. CMP: creatinine 0.66 (wnl), otherwise normal. Lipase: 23. Interventions: Normal saline 1,000mL IV Zofran 4mg IV Dilaudid 0.5mg IV x2 Dilaudid 1mg IV Xylocaine 2% 15mL, Mylanta 15mL (GI cocktail) PO Percocet 5-325mg PO x2 Protonix 40mg IV Phenergan 25mg PO Normal saline 1,000mL IV Emergency Department Course Nursing notes and vitals reviewed. I performed an exam of the patient as documented above. A peripheral IV was established. An abdominal, blood, and urine workup was obtained. The patient received the above interventions. She was having minimal response to interventions. Re-medicated. Reassessed. Still no subjective significant improvement. Watching TV. Telephone in hand. Findings and plan explained to the Patient who consents to admission. Discussed the patient with , who will admit the patient to a monitored bed for further observation, evaluation, and treatment. Impression & Plan Medical Decision Making: Richar Culver is a 52 year old female with history of chronic pancreatitis who presents to the emergency room with concern for epigastric abdominal pain that she notes is the same she has had beforewith pancreatitis. Her laboratory evaluations are not consistent with pancreatitis. Other etiologiesnot found by laboratory evaluation could include gastritis or PUD. There are not abnormalities that are worrisome for GI bleed or inflammatory/infectious etiology. She has slight hematuria but it is very mild and this does not seem consistent with renal colic. She required large doses of IV narcotics here with almost no improvement of her pain under subjective pain rating. I did review her previous notes and there is some concern for drug seeking behavior and although this is not entirely clear, jacob required larger doses than expected for someone naive to narcotics with minimal improvement in her symptoms. She never appeared to be in severe pain on assessment but may have no outward expressionof severe pain. I can only go on her objective feelings and at this point she feels uncomfortable going home and cannot tolerate the pain. She will be admitted for further pain control. I feel at this point, she would will it is beneficial to admit her as she would otherwise likely return after discharge. She voices understanding and agrees with this plan. All questions were answered. Disposition: Patient admitted to medical observational bed for IV medication pain control under the care of Dr. Hector in stable condition. Diagnosis: 1. Intractable abdominal pain. 2. Nausea and vomiting. 3. Chronic abdominal pain. I, Earnest Swan, am serving as a scribe on 07/21/2013 at 5:03 PM to personally document services performed by Dr. Jones based on my observations and the provider's statements to me. Bel Jones MD 07/21/13 [id number] Maria M Salazar RN - 07/21/2013 4:01 PM CDT States she has been admitted here twice for pancreatitis this summer, and has been in at least 6 other times to her doctor for symptoms. States having symptoms again. Started Wednesday night; seen at [facility] and sent home and was told to call GI. States is miserable and vomiting. No appetite. Can't eat or drink without vomiting. Patient states she has also experienced some dizziness when standing that can also be accompanied byshortness of breath. Denies chest pain. documented in this encounter Miscellaneous Notes Utilization Review - Ar Roach DO - 07/23/2013 4:07 PM CDT Admission Status; Secondary Review Determination Admission Date: 07/21/2013 4:48 PM Under the authority of the Utilization Management Committee, the utilization review process indicated a secondary review on the above patient. The review outcome is based on review of the medical records, discussions with staff, and applying clinical experience noted on the date of the review. () Inpatient Status Appropriate - This patient's medical care is consistent with medical management for inpatient care and reasonable inpatient medical practice. (x) Observation Status Appropriate - This patient does not meet hospital inpatient criteria and is placed in observation status. If this patient's primary payer is Medicare and was admitted as an inpatient, Condition Code 44 should be used and patient status changed to observation. () Admission Status NOT Appropriate - This patient's medical care is not consistent with medical management for Inpatient or Observation Status. RATIONALE FOR DETERMINATION Patient is a 48 year old female with a past medical history significant for chronic pancreatitis, hypothyroidism, depression, and chronic pain syndrome. Presented to the ER with abdominal pain. Lab testing was unremarkable. Patient placed in the hospital on observation status for pain control. I have spoken with Dr. Holt today, who is caring for the patient. She is able to tell me that the patientis feeling better today and the plan is for patient to discharge home today. As plan is for discharge today, observation status remains appropriate. The severity of illness, intensity of service provided, expected LOS and risk for adverse outcome make the care appropriate for observation at the hospital. The information on this document is developed by the utilization review team in order for the business office to ensure compliance. This only denotes the appropriateness of proper admission status and does not reflect the quality of care rendered. The definitions of Inpatient Status and Observation Status used in making the determination above are those provided in the CMS Coverage Manual, Chapter 1 and Chapter 6, section 70.4. Sincerely, Ar Roach D.O. Utilization Review/ Case Management [facility]. Plan of Care - Giacomo Mckeon RN - 07/23/2013 5:59 AM CDT Problem: IP GENERAL POC-ADULT,OB,BEHAVIORAL FVCPM Goal: Individualization/Patient-Specific Goal (Adult,OB,Behavioral The patient and/or their self pay representative will achieve their patient-specific goals related to the plan of care. The patient-specific goals include: Outcome: No Change VSS,pt slept well,abdominal and back pain 7-8/10 had morphine 4 mg IV one time and phenergan given for nausea.LS clear,Bs hypoactive flatus+. Plan of Care - Faizan Rangel RN - 07/22/2013 1:48 PM CDT Problem: IP GENERAL POC-ADULT,OB,BEHAVIORAL FVCPM Goal: Individualization/Patient-Specific Goal (Adult,OB,Behavioral The patient and/or their self pay representative will achieve their patient-specific goals related to the plan of care. The patient-specific goals include: Outcome: No Change VSS C/o abdominal pain; morphine not effective this am; wanted to try po meds and says she got sick and vomitted but vomit was unwitnessed Also c/o nausea; zofran given Taking clears voiding Plan of Care - Giacomo Mckeon RN - 07/22/2013 5:20 AM CDT Problem: IP GENERAL POC-ADULT,OB,BEHAVIORAL FVCPM Goal: Individualization/Patient-Specific Goal (Adult,OB,Behavioral The patient and/or their self pay representative will achieve their patient-specific goals related to the plan of care. The patient-specific goals include: Outcome: No Change VSS,pt slept well ,morphine 2 mg IV given twice ,phenergan and Zofran given per pt's request,pt.rated abdominal pain 9-10/10 ,LS clear,BS hypoactive,denied passing flatus,voided adequately. Pharmacy-Admission Medication History - Nick Macedo, [facility] - 07/21/2013 9:21 PM CDT Admission medication history interview status for this patient is complete. See [facility] admission navigator for allergy information, prior to admission medications and immunization status. Medication history interview source(s):Patient Medication history resources (including written lists, pill bottles, clinic record):None Primary pharmacy: [facility] ([facility]) Changes made to [employer] [employer] medication list: Added: none Deleted: none Changed: none Notes: - Uses meds for migraines about twice a week - Is trying to wean myself off of the hormone replacement tablets and takes every other day Actions taken by pharmacist (provider contacted, etc):None Additional medication history information:None Medication reconciliation/reorder completed by provider prior to medication history? No Prior to Admission medications Medication Sig Last Dose Taking? Auth Provider ketorolac (TORADOL) 10 MG tablet Take 1 tablet (10 mg) by mouth every 6 hours as needed for pain Past Month at Unknown Yes Wandy Recio MD HYDROcodone-acetaminophen 5-325 MG per tablet Take 1 tablet by mouth every 6 hours as needed Past Week at Unknown Yes Reported, Patient oxyCODONE (ROXICODONE) 5 MG immediate release tablet Take 1-2 tablets (5-10 mg) by mouth every 4 hours as needed Past Month at Unknown Yes Corky Casas MD croatew-yaacxtlydahyw-uuqzbjtp (EXCEDRIN MIGRAINE) 250-250-65 MG per tablet Take 2 tablets by mouth every 8 hours as needed Past Week at Unknown Yes Dummy, Bfp User rgayemixon-kyxudsk-jgszhwyj (FIORINAL EQUIV) 50-325-40 MG TABS Take 1 tablet by mouth every 4 hours as needed. Past Week at Unknown Yes Reported, Patient acetaminophen 650 MG TABS Take 500-1,000 mg by mouth every 6 hours as needed. Past Month at Unknown Yes Corky Casas MD multivitamin, therapeutic with minerals (MULTI-VITAMIN) TABS Take 1 tablet by mouth daily. 07/21/2013t Unknown Yes Corky Casas MD PARoxetine HCl (PAXIL PO) Take 90 mg by mouth daily. Patient takes 3 tabs of 30mg=90mg 07/21/2013 at Unknown Yes Reported, Patient Levothyroxine Sodium (SYNTHROID PO) Take 175 mcg by mouth daily. 07/21/2013 at Unknown Yes Reported, Patient estrogens-methylTESTOSTERone (ESTRATEST HS) 0.625-1.25 MG per tablet Take 1 tablet by mouth daily. 07/21/2013 at Unknown Yes Reported, Patient VITAMIN D, CHOLECALCIFEROL, PO Take 2,000 Units by mouth daily. 07/21/2013 at Unknown Yes Reported, Patient SUMAtriptan Succinate Refill (IMITREX STATDOSE REFILL) 6 MG/0.5ML SOLN Inject 6 mg Subcutaneous once. May repeat in 1 hr as needed, do not exceed 2 doses per 24hrs Past Week at Unknown Yes Dummy, Bfp User documented in this encounter Plan of Treatment Not on filedocumented as of this encounter Procedures Procedure Name Priority Date/Time Associated Comments Diagnosis BASIC METABOLIC PANEL Routine 07/23/2013 7:30 AM Results for this CDT procedure are i n the results section. HCG QUALITATIVE URINE Routine 07/21/2013 6:00 PM Results for this CDT procedure are i n the results section. ROUTINE UA WITH STAT 07/21/2013 6:00 PM Result s for this MICROSCOPIC CDT procedure are i n the results section. XR CHEST 2 VIEWS STAT 07/21/2013 5:52 PM Resul ts for this CDT procedure are i n the results section. CBC WITH PLATELETS & STAT 07/21/2013 5:14 PM R esults for this DIFFERENTIAL CDT procedure are i n the results section. INR Routine 07/21/2013 5:14 PM Results f or this CDT procedure are i n the results section. LIPASE STAT 07/21/2013 5:14 PM Results f or this CDT procedure are i n the results section. COMPREHENSIVE STAT 07/21/2013 5:14 PM Results for this METABOLIC PANEL CDT procedure ar e in the results section. AMYLASE Routine 07/21/2013 5:14 PM Results f or this CDT procedure are i n the results section. EKG 12-LEAD, TRACING STAT 07/21/2013 4:57 PM R esults for this ONLY CDT procedure are i n the results section. documented in this encounter Results (ABNORMAL) Basic metabolic panel (07/23/2013 7:30 AM CDT) athologist Signature Sodium 142 133 - 144 [place] mmol/L [facility] Potassium 4.3 3.4 - 5.3 [place] mmol/L [facility] Chloride 109 94 - 109 [place] mmol/L [facility] Carbon Dioxide 27 20 - 32 [place] mmol/L [facility] Anion Gap 6 6 - 17 [place] mmol/L [facility] Glucose 84 60 - 99 [place] mg/dL [facility] Urea Nitrogen 8 7 - 30 [place] mg/dL [facility] Creatinine 0.56 0.52 - [facility] 1.04 mg/dL [facility] GFR Estimate >90 >60 [place] mL/min/1.[address] [place] [address] LAB GFR Estimate If >90 >60 [place] Black mL/min/1.[address] [place] [address] LAB Calcium 7.9 (L) 8.5 - 10.4 [place] mg/dL [facility] Specimen Anatomical Collection Method Collection Time Receive d Time (Source) Location / / Volume Laterality Blood specimen 07/23/2013 7:30 AM 013 7:37 (specimen) CDT AM CDT Kaitlin Holt MD LAB - BLOOD ORDERABLES Performing Organization Address City/[facility]/ZIP [facility] [place] [address] [place] [address] [phone] [place] [address] LAB HCG qualitative urine (07/21/2013 6:00 PM CDT) athologist Signature HCG Qual Urine Negative NEG [facility] Specimen Anatomical Collection Method Collection Time Receive d Time (Source) Location / / Volume Laterality 07/21/2013 6:00 PM 3 6:17 CDT PM CDT Bel Jones MD LAB - URINE ORDERABLES Performing Organization Address [facility] Phon e Number [facility] [address] [address] [phone] [place] [address] LAB (ABNORMAL) UA with Microscopic (07/21/2013 6:00 PM CDT) [facility] gist Method Time Signature Color Urine Yellow [facility] Appearance Urine Clear [facility] Glucose Urine Negative NEG mg/dL [facility] Bilirubin Urine Negative NEG [facility] Ketones Urine Negative NEG mg/dL [facility] Specific [place] 1.021 1.003 - [place] Urine 1.035 [facility] Blood Urine Trace (A) NEG [facility] pH Urine 5.5 5.0 - 7.0 [place] pH [facility] Protein Albumin 10 (A) NEG mg/dL [facility] Urobilinogen Normal 0.0 - 2.0 [place] mg/dL mg/dL [facility] Nitrite Urine Negative NEG [facility] Leukocyte Negative NEG [place] Esterase Urine [facility] Source Midstream [facility] WBC Urine 2 0 - 2 [facility] RBC Urine 4 (H) 0 - 2 [facility] Bacteria Urine Few (A) NEG /HPF [facility] Squamous 1 0 - 1 [place] Epithelial /HPF /[facility] Transitional Epi <1 0 - 1 [facility] Mucous Urine Present (A) NEG /LPF [facility] Specimen Anatomical Collection Method Collection Time Receive d Time (Source) Location / / Volume Laterality Urine specimen URINE SPECIMEN 07/21/2013 6:00 PM 07/21 6:17 (specimen) OBTAINED BY CLEAN CDT PM CDT CATCH PROCEDURE / Unknown Bel Jones MD LAB - URINE ORDERABLES Performing Organization Address City/State/ZIP Code Phon e Number M [facility] [address], [place] [address] [facility] XR Chest 2 Views (07/21/2013 5:52 PM CDT) Anatomical Region Laterality Modality Chest Other Specimen (Source) Anatomical Collection Method Collection Time Re ceived Time Location / / Volume Laterality 07/21/2013 5:52 PM CDT Impressions 07/21/2013 6:25 PM CDT IMPRESSION: Negative, no infiltrate. ELVIRA GONZALES MD Narrative 07/21/2013 6:25 PM CDT CHEST 2 VIEW* ?? 07/21/2013 5:52 PM HISTORY: Chest and abdominal pain. COMPARISON: None. FINDINGS: The heart is negative. ??The l ungs are clear. The pulmonary vasculature is normal. ??The bones and s oft tissues are unremarkable. Procedure Note Adam Gonzales MD - 07/21/2013For matting of this note might be different from the original. CHEST 2 VIEW* 07/21/2013 5:52 PM HISTORY: Chest and abdominal pain. COMPARISON: None. FINDINGS: The heart is negative. The hector gs are clear. The pulmonary vasculature is normal. The bones and sof t tissues are unremarkable. IMPRESSION IMPRESSION: Negative, no infiltrate. ELVIRA GONZALES MD Bel Jones MD IMG DIAGNOSTIC IMAGING ORDER EMILEE INR (07/21/2013 5:14 PM CDT) athologist [facility] INR 1.01 0.86 - 1.14 [facility] Specimen Anatomical Collection Method Collection Time Receive d Time (Source) Location / / Volume Laterality 07/21/2013 5:14 PM 3 5:28 CDT PM CDT Bel Jones MD LAB - BLOOD ORDERABLES Performing Organization Address City/[facility]/ZIP Code Phon e Number [place] [address] [facility] Amylase (07/21/2013 5:14 PM CDT) athologist Signature Amylase 45 30 - 110 [facility] U/L [facility] Specimen Anatomical Collection Method Collection Time Receive d Time (Source) Location / / Volume Laterality 07/21/2013 5:14 PM 3 5:28 CDT PM CDT Bel Jones MD LAB - BLOOD ORDERABLES Performing Organization Address City/[facility]/ZIP Code Phon e Number [place] [address] [address], [place] [address] [facility] Lipase (07/21/2013 5:14 PM CDT) athologist Signature Lipase 23 20 - 250 [facility] U/L HOSPITAL LAB Specimen Anatomical Collection Method Collection Time Receive d Time (Source) Location / / Volume Laterality Blood specimen 07/21/2013 5:14 PM 013 5:28 (specimen) CDT PM CDT Bel Jones MD LAB - BLOOD ORDERABLES Performing Organization Address City/State/ZIP Code Phon e Number M [facility] [address] [place], [place] [address] [facility] Comprehensive metabolic panel (07/21/2013 5:14 PM CDT) athologist Signature Sodium 141 133 - 144 [place] mmol/L [facility] Potassium 3.7 3.4 - 5.3 [place] mmol/L [facility] Chloride 105 94 - 109 [place] mmol/L [facility] Carbon Dioxide 22 20 - 32 [place] mmol/L [facility] Anion Gap 14 6 - 17 [place] mmol/L [facility] Glucose 87 60 - 99 [place] mg/dL [facility] Urea Nitrogen 24 7 - 30 [place] mg/dL [facility] Creatinine 0.66 0.52 - [facility] 1.04 mg/dL [facility] GFR Estimate >90 >60 [place] mL/min/1.[address] LAB GFR Estimate If >90 >60 [place] Black mL/min/1.[address] [place] [address] LAB Calcium 8.9 8.5 - 10.4 [place] mg/dL [facility] Bilirubin Total 0.3 0.2 - 1.3 [place] mg/dL [facility] Albumin 4.2 3.9 - 5.1 [place] g/dL [facility] Protein Total 7.3 6.8 - 8.8 [place] g/dL [facility] Alkaline 101 40 - 150 [place] Phosphatase U/L [facility] ALT 40 0 - 50 U/L [facility] AST 27 0 - 45 U/L [facility] Specimen Anatomical Collection Method Collection Time Receive d Time (Source) Location / / Volume Laterality Blood specimen 07/21/2013 5:14 PM 013 5:28 (specimen) CDT PM CDT Bel Jones MD LAB - BLOOD ORDERABLES Performing Organization Address City/State/ZIP Code Phon e Number M [facility] [address] [place], [place] [address] [facility] CBC with platelets differential (07/21/2013 5:14 PM CDT) Component Value Ref Test Analysis Performed At [facility] gist Range Method Time Signature WBC 6.7 4.0 - [place] 11.0 [facility] 10e9/L [facility] RBC Count 4.49 3.8 - [place] 5.2 [facility] 10e12/L [facility] Hemoglobin 14.6 11.7 - [place] 15.7 [facility] g/dL [facility] Hematocrit 41.3 35.0 - [place] 47.0 % [facility] MCV 92 78 - 100 [place] fl [facility] MCH 32.5 26.5 - [place] 33.0 pg [facility] MCHC 35.4 31.5 - [place] 36.5 [facility] g/dL [facility] RDW 13.4 10.0 - [place] 15.0 % [facility] Platelet Count 355 150 - [place] 450 [facility] 10e9/L [facility] Diff Method Automated [facility] LAB % Neutrophils 35.0 % [facility] % Lymphocytes 48.0 % [facility] % Monocytes 10.9 % [facility] % Eosinophils 4.8 % [facility] % Basophils 1.2 % [facility] % Immature 0.1 % [place] Granulocytes [facility] Absolute 2.3 1.6 - [place] Neutrophil 8.3 [facility] 10e9/L [facility] Absolute 3.2 0.8 - [place] Lymphocytes 5.3 [facility] 10e9/L [facility] Absolute 0.7 0.0 - [place] Monocytes 1.3 [facility] 10e9/L [facility] Absolute 0.3 0.0 - [place] Eosinophils 0.7 [facility] 10e9/L [facility] Absolute 0.1 0.0 - [place] Basophils 0.2 [facility] 10e9/L [facility] Abs Immature 0.0 0 - 0.4 [place] Granulocytes 10e9/L [facility] Polychromasia Slight [place] Increase [facility] Reactive Lymphs Present [facility] RBC Morphology Consistent [place] with reported [facility] results [facility] Platelet Estimate Normal [facility] Specimen Anatomical Collection Method Collection Time Receive d Time (Source) Location / / Volume Laterality Blood specimen 07/21/2013 5:14 PM 013 5:28 (specimen) CDT PM CDT Bel Jones MD LAB - BLOOD ORDERABLES Performing Organization Address City/State/ZIP Code Phon e Number [facility] [address] [place], [place] [address] [facility] EKG 12 lead (07/21/2013 4:57 PM CDT) [facility] gist Method Time Signature Interpretation ECG Click View RADIOLOGY Image link RESULTS to view waveform and result Specimen (Source) Anatomical Collection Method Collection Time Re ceived Time Location / / Volume Laterality 07/21/2013 4:57 PM CDT Bhanu Blanca MD ECG ORDERABLES Performing Organization Address City/State/ZIP Code Phon e Number RADIOLOGY RESULTS documented in this encounter Visit Diagnoses Diagnosis Intractable abdominal pain - Primary Abdominal pain, unspecified site Nausea and vomiting Nausea with vomiting Chronic abdominal pain Abdominal pain, unspecified site Pain Generalized pain Dietary supplement discontinued Pancreatitis Acute pancreatitis Narcotic withdrawal (H) Drug withdrawal Chronic abdominal pain Abdominal pain, unspecified site documented in this encounter Admitting Diagnoses Diagnosis Chronic abdominal pain Abdominal pain, unspecified site documented in this encounter Administered Medications Inactive Administered Medications - up to 3 most recent administrations Medication Order MAR Action Action Date Dose Rate Site 0.9 % sodium chloride with Rate/Dose Verify 07/23/2013 12:22 AM 75 mL/hr KCl 20 mEq/L IV infusion CDT at 75 mL/hr, Intravenous, CONTINUOUS, Starting on Wed07/21/13 at 2300, Until Wed07/23/13 at 1544 New Bag 07/22/2013 11:01 PM CDT 75 mL/hr New Bag 07/22/2013 10:56 AM CDT 75 mL/hr 0.9 % sodium chloride IV New Bag 07/21/2013 7:02 PM CDT 1,000 mLs 125 mL/hr solution at 125 mL/hr, Intravenous, CONTINUOUS, Administer after the bolus., Starting on Wed07/21/13 at 1730, Until Wed07/21/13 at 2255 acetaminophen (TYLENOL) tablet 500-1,000 mg Given 07/23/2013 8:41 AM CDT 1,000 mg 500-1,000 mg, Oral, EVERY 6 HOURS PRN, mild pain, Starting on Wed07/21/13 at 2254, Maximum acetaminophen dose from all sources = 75 mg/kg/day not to exceed 4 gram mwkkpfs-hokkrnuqkbmua-zyozxtpy (EXCEDRIN Given 07/22/2013 6: 17 PM CDT 2 tablets MIGRAINE) per tablet 2 tablet 2 tablet, Oral, EVERY 8 HOURS PRN, headaches, Starting on Wed07/21/13 at 2254 lcvuktigzi-kfgsqil-hjjyypsx (FIORINAL) per Given 07/23 6:19 AM CDT 1 capsule capsule 1 capsule 1 capsule, Oral, EVERY 4 HOURS PRN, headaches, Starting on Wed07/22/13 at 0956 Given 07/23/2013 2:27 AM CDT 1 capsule Given 07/22/2013 2:21 PM CDT 1 capsule cholecalciferol (vitamin D) tablet 2,000 Given 013 8:42 AM CDT 2,000 Units Units 2,000 Units, Oral, DAILY, First dose on Wed07/22/13 at 0900 estrogens-methylTESTOSTERone (ESTRATEST HS) Given 06/26 8:42 AM CDT 1 tablet 0.625-1.25 MG per tablet 1 tablet 1 tablet, Oral, DAILY, First dose on Wed07/22/13 at 0900 Given 07/22/2013 10:18 AM CDT 1 tablet HYDROmorphone (PF) (DILAUDID) injection 0.5 Given 07/21/2013 7:03 PM CDT 0.5 mg mg 0.5 mg, Intravenous, EVERY 15 MIN PRN, moderate to severe pain, Starting on Wed07/21/13 at 1718, For 3 doses Given 07/21/2013 6:10 PM CDT 0.5 mg Given 07/21/2013 5:29 PM CDT 0.5 mg HYDROmorphone (PF) (DILAUDID) injection 1 mg Given 07/21/2013 8:43 PM CDT 1 mg 1 mg, Intravenous, ONCE, On Wed07/21/13 at 2045, For 1 dose levothyroxine (SYNTHROID, LEVOTHROID) tablet Given 8:42 AM CDT 175 mcg 175 mcg 175 mcg, Oral, DAILY, First dose on Wed07/22/13 at 0900 Given 07/22/2013 9:15 AM CDT 175 mcg lidocaine (XYLOCAINE) 2 % 15 mL, alum & mag Given 07/21/2013 5:26 PM CDT 30 mLs hydroxide-simethicone (MYLANTA ES/MAALOX ES) 15 mL GI Cocktail 30 mL, Oral, ONCE, On Wed07/21/13 at 1730, For 1 dose morphine injection 2-4 mg Given 07/23/2013 9:11 AM CDT 2 mg 2-4 mg, Intravenous, EVERY 3 HOURS PRN, Starting on Wed07/21/13 at 2314, severe pain Given 07/23/2013 6:15 AM CDT 4 mg Given 07/23/2013 2:28 AM CDT 4 mg multivitamin, therapeutic with minerals Given 07/23/2013 8:42 AM CDT 1 tablet (THERA-VIT-M) 1 tablet 1 tablet, Oral, DAILY, First dose on Wed07/22/13 at 0900 ondansetron (ZOFRAN) injection 4 mg Given 07/22/2013 3:24 AM CDT 4 mg 4 mg, Intravenous, EVERY 30 MIN PRN, nausea, vomiting, Administer over 2-5 Minutes, Starting on Wed07/21/13 at 1718, For 3 doses, May repeat in 30 minutes as needed, up to 3 doses. Given 07/21/2013 7:40 PM CDT 4 mg Given 07/21/2013 5:25 PM CDT 4 mg ondansetron (ZOFRAN) injection 4 mg Given 07/23/2013 10:05 AM CDT 4 mg 4 mg, Intravenous, EVERY 6 HOURS PRN, nausea, vomiting, Administer over 2-5 Minutes, Starting on Wed07/22/13 at 1101 Given 07/22/2013 11:09 AM CDT 4 mg oxyCODONE (ROXICODONE) immediate release Given 07/23/2013 12:43 PM CDT 10 mg tablet 5-10 mg 5-10 mg, Oral, EVERY 4 HOURS PRN, moderate to severe pain, severe pain, Starting on Wed07/21/13 at 2254 Given 07/23/2013 8:41 AM CDT 10 mg Given 07/22/2013 2:20 PM CDT 10 mg oxyCODONE-acetaminophen (PERCOCET) 5-325 Given 07/21/2013 7: 14 PM CDT 2 tablets MG per tablet 2 tablet 2 tablet, Oral, ONCE, On Wed07/21/13 at 1915, For 1 dose, Maximum acetaminophen dose from all sources= 75 mg/kg/day not to exceed 4 grams pantoprazole (PROTONIX) EC tablet 40 mg Given 07/21/2013 7:14 PM CDT 40 mg 40 mg, Oral, ONCE, On Wed07/21/13 at 1915, For 1 dose, DO NOT CRUSH. PARoxetine (PAXIL) 90 mg New Bag 07/22/2013 11:09 AM CDT 90 mg 80 mg, Oral, DAILY, First dose (after last reorder) on 07/22/13 at 1100 PARoxetine (PAXIL) tablet 10 mg Given 07/23/2013 8:41 AM CDT 10 mg 10 mg, Oral, DAILY, First dose on 07/23/13 at 0900, TO EQUAL HOME PAROXETINE DOSE OF 90MG DAILY. PARoxetine (PAXIL) tablet 80 mg Given 07/23/2013 8:42 AM CDT 80 mg 80 mg, Oral, DAILY, First dose on 07/23/13 at 0900, TO EQUAL HOME PAROXETINE DOSE OF 90MG DAILY. promethazine (PHENERGAN) 25 MG/ML inject ion Given 07/21/2013 11:58 PM CDT 25 mg Starting on Wed07/21/13 at 2358, For 1 dose, GIACOMO MCKEON: cabinet override promethazine (PHENERGAN) injection 25-50 mg Given 07/23/2013 11:55 AM CDT 25 mg 25-50 mg, Intravenous, EVERY 6 HOURS PRN, nausea, vomiting, Starting on Wed07/21/13 at 2315, WARNING FOR IV ADMINISTRATION: Intra-arterial inj. causes tissue necrosis. STOP administration if pain or discomfort occurs. IMPORTANT: FOR IV administration: Nurse to dilute 25 mg with 10 mL of normal saline in a syringe. Resulting concentration = 2.5 mg/ mL. Administer over 3-5 minutes (Max of 25 mg/minute).?? Given 07/23/2013 5:09 AM CDT 25 mg Given 07/22/2013 10:14 PM CDT 25 mg promethazine (PHENERGAN) tablet 25 mg Given 07/21/2013 6:09 PM CDT 25 mg 25 mg, Oral, ONCE, On Wed07/21/13 at 1815, For 1 dose sodium chloride 0.9 % BOLUS New Bag 07/21/2013 5:30 PM CDT 1,000 m Ls 1000 mL/hr 1,000 mL Intravenous, 1,000 mL, ONCE, at 1,000 mL/hr, Administer over 1 Hours, On Wed07/21/13 at 1730, For 1 dose SUMAtriptan (IMITREX) injection 6 mg Given 07/22/2013 6:23 AM CDT 6 mg 6 mg, Subcutaneous, AT ONSET OF HEADACHE, Starting on Wed07/22/13 at 0000, May repeat dose in 2 hours if no relief. Do not exceed 2 doses in 24 hours documented in this encounter Active and Recently Administered Medications Times are shown in CDT. Scheduled Medication Order 07/21/2013 07/22/2013 07/23/2013 cholecalciferol (vitamin D) tablet 2,000 Units (CANCELED) 0917 (Not Given - Provider: Faizan Rangel RN - Reason: Patient/family refused) 0842 (Given - Provider: Faizan Rangel RN) 2,000 Units, Oral, DAILY, First dose on Wed07/22/13 at 0900 estrogens-methylTESTOSTERone (ESTRATEST HS) 0.625-1.25 MG per tablet 1 tablet (CANCELED) 1018 (Given - Provider: Faizan Rangel RN ) 0842 (Given - Provider: Faizan Rangel RN) 1 tablet, Oral, DAILY, First dose on Wed07/22/13 at 0900 HYDROmorphone (PF) (DILAUDID) injection 1 mg (COMPLETE D) 2042 (Given - Provider: Leatha Garcia RN) 1 mg, Intravenous, ONCE, 1 dose, Wed07/21/13 at 2045 levothyroxine (SYNTHROID, LEVOTHROID) tablet 175 mcg (CANCEL ED) 0915 (Given - Provider: Faizan Rangel RN) 0842 (Given - Provider: Faizan Rangel RN ) 175 mcg, Oral, DAILY, First dose on Wed07/22/13 at 0900 lidocaine (XYLOCAINE) 2 % 15 mL, alum & mag hydroxide-simethicone (MYLANTA ES/MAALOX ES) 15 mL GI Cocktail (COMPLETED) 172 (Given - Provider: Moni Erazo RN) 30 mL, Oral, ONCE, Wed07/21/13 at 1730, For 1 dose multivitamin, therapeutic with minerals (THERA-VIT-M) 1 tabl et (CANCELED) 916 (Not Given - Provider: Faizan Rangel RN - Reason: Patient/family refused) 08 (Given - Provider: Faizan Rangel RN) 1 tablet, Oral, DAILY, First dose on 07/22/13 at 0900 oxyCODONE-acetaminophen (PERCOCET) 5-325 MG per tablet 2 tablet (COMPLETED) 1913 (Given - Provider: Moni Erazo RN) 2 tablet, Oral, ONCE, Wed07/21/13 at 191 5, For 1 dose, Maximum acetaminophen dose from all sources= 75 mg/kg/day not to exceed 4 grams pantoprazole (PROTONIX) EC tablet 40 mg (COMPLETED) 19 (Given - Provider: Moni Erazo RN) 40 mg, Oral, ONCE, Wed07/21/13 at 1915, For 1 dose, DO NOT CRUSH . PARoxetine (PAXIL) 90 mg (CANCELED) 110 (New Bag - Provider: Faizan Rangel RN - Comment: see order reads 90mg; phamarcy sent 90mg) 80 mg, Oral, DAILY, First dose on 07/22/13 at 1100 PARoxetine (PAXIL) tablet 10 mg (CANCELED) 08 (Given - Provider: Faizan Rangel RN) 10 mg, Oral, DAILY, First dose on Sun at 0900, TO EQUAL HOME PAROXETINE DOSE OF 90MG DAILY. PARoxetine (PAXIL) tablet 80 mg (CANCELED) 08 (Given - Provider: Faizan Rangel RN) 80 mg, Oral, DAILY, First dose on Sun at 0900, TO EQUAL HOME PAROXETINE DOSE OF 90MG DAILY. promethazine (PHENERGAN) tablet 25 mg (COMPLETED) 180 (Given - Provider: Georgia Gilliland) 25 mg, Oral, ONCE, Wed07/21/13 at 1815, For 1 dose sodium chloride 0.9 % BOLUS 1,000 mL (COMPLETED) 1730 (New Bag - Provider: Moni Erazo RN)1856 (Stopped - Provider: Moni Erazo RN) Intravenous, 1,000 mL, ONCE, at 1,000 mL /hr, for 1 Hours, Wed07/21/13 at 1730, For 1 dose Continuous Medication Order 07/21/2013 07/22/2013 07/23/2013 0.9 % sodium chloride with KCl 20 mEq/L IV infusion (C ANCELED) 2357 (Rate/Dose Verify - Provider: Giacomo Mckeon RN) 1056 (New Bag - Provider: Faizan Rangel RN)2301 (New Bag - Provider: Chapo Fuentes LPN) 0022 (Rate/Dose Verify - Provider: Giacomo Mckeon RN) at 75 mL/hr, Intravenous, CONTINUOUS 0.9 % sodium chloride IV solution (CANCELED) 1902 (New Bag - Provider: Moni Erazo RN) at 125 mL/hr, Intravenous, CONTINUOUS, Administer after the bolu s. PRN Medication Order 07/21/2013 07/22/2013 07/23/2013 acetaminophen (TYLENOL) tablet 500-1,000 mg (CANCELED) 0841 (Given - Provider: Faizan Rangel RN) 500-1,000 mg, Oral, EVERY 6 HOURS PRN, m ild pain, Starting Wed07/21/13 at 2254, Maximum acetaminophen dose from all sources = 75 mg/kg/day not to exceed 4 gram tiqavch-mtcglxwhfzcyv-revwaqvj (EXCEDRIN MIGRAINE) per tablet 2 tablet (CANCELED) 1817 (Given - Provider: Taylor Cardenas LPN) 2 tablet, Oral, EVERY 8 HOURS PRN, headaches, Starting Wed at 2254 cbgggssqcq-ongqhnz-qrqrmdwo (FIORINAL) per capsule 1 capsule (CANCELED) 1018 (Given - Provider: Faizan Rangel RN)1421 (Given - Provider: Faizan Rangel RN) 0227 (Given - Provider: Giacomo Mckeon RN)0619 (Given - Provider: Giacomo Mckeon RN) 1 capsule, Oral, EVERY 4 HOURS PRN, headaches, Starting Sat 07/22 at 0956 HYDROmorphone (PF) (DILAUDID) injection 0.5 mg (COMPLE JOHN) 1729 (Given - Provider: Moni Erazo, MARCELA)1810 (Given - Provider: Georgia Gilliland)1903 (Given - Provider: Moni Erazo, MARCELA) 0.5 mg, Intravenous, EVERY 15 MIN PRN, 3 doses, Starting 07/21/13 at 1718, Until Wed07/21/13 at 1903, moderate to severe pain morphine injection 2-4 mg (CANCELED) 2357 (Given - Pro vider: Giacomo Mckeon RN - Comment: IVP) 0318 (Given - Provider: Giacomo howard RN - Comment: IVP)0618 (Given - Provider: Giacomo Mckeon RN - Comment: IVP)0915 (Given - Provider: Faizan Rangel RN - Comment: IV push)1321 (Given - Provider: Faizan Rangel RN - Comment: IVP) 0228 (Given - Provider: Giacomo howard RN - Comment: IVP)0615 (Given - Provider: Giacomo Mckeon RN - Comment: IVP)0911 (Given - Provider: Faizan Rangel RN - Comment: IVP) 2-4 mg, Intravenous, EVERY 3 HOURS PRN, severe pain, Starting 07/21/13 at 2314 1647 (Given - Provider: Ruby Fitzgerald, MARCELA)2003 (Given - Provider: Linda Aldana RN)2338 (Given - Provider: Cora Fitzgerald, MARCELA) ondansetron (ZOFRAN) injection 4 mg (COMPLETED) 1725 ( Given - Provider: Moni Erazo, MARCELA)1940 (Given - Provider: Leatha Garcia, MARCELA) 0324 (Given - Provider: Giacomo Mckeon RN) 4 mg, Intravenous, EVERY 30 MIN PRN, deejay sea, vomiting, for 2 Minutes, Starting 07/21/13 at 1718, For 3 doses, May repeat in 30 minutes as needed, up to 3 doses. ondansetron (ZOFRAN) injection 4 mg (CANCELED) 1109 (Given - Provider: Faizan Rangel RN - Comment: IV push) 1005 (Given - Provider: Faizan Rangel RN ) 4 mg, Intravenous, EVERY 6 HOURS PRN, na usea, vomiting, for 2 Minutes, Starting 07/22/13 at 1101 oxyCODONE (ROXICODONE) immediate release tablet 5-10 mg (CAN CELED) 1018 (Given - Provider: Faizan Rangel RN)1420 (Given - Provider: Faizan Rangel RN) 0841 (Given - Provider: Faizan Rangel RN)1243 (Given - Provider: Maureen Mcclain LPN) 5-10 mg, Oral, EVERY 4 HOURS PRN, modera te to severe pain, severe pain, Starting 07/21/13 at 2254 promethazine (PHENERGAN) injection 25-50 mg (CANCELED) 0620 (Given - Provider: Giacomo Mckeon RN - Comment: IVP)1648 (Given - Provider: Cora Fitzgerald RN)2214 (Given - Provider: Cora Fitzgerald RN) 0509 (Given - Provider: Giacomo Mckeon RN - Comment: IVP)1155 (Given - Provider: Corie Gibson - Comment: IVP) 25-50 mg, Intravenous, EVERY 6 HOURS PRN , nausea, vomiting, Starting 07/21/13 at 2315, WARNING FOR IV ADMINISTRATION: Intra-arterial inj. causes tissue necrosis. STOP administration if pain or disc omfort occurs. IMPORTANT: FOR IV admin istration: Nurse to dilute 25 mg with 10 mL of normal saline in a syringe. Resulting concentration = 2.5 mg/ mL. Administer over 3-5 minutes (Max of 25 mg/minute).?? SUMAtriptan (IMITREX) injection 6 mg (CANCELED) 0623 (Given - Provider: Giacomo Mckeon RN - Comment: SQ) 6 mg, Subcutaneous, AT ONSET OF HEADACHE , Starting 07/22/13 at 0000, May repeat dose in 2 hours if no relief. 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
--- OUTSIDE RECORDS SUMMARY | 2022-08-10 10:55 | XMS_ITS | Encounter Summary ---
:1965 Author Organization [facility] Address [address] [place] [address] Care Team Providers Name Role Phone No Ref-Primary, Physician Primary Care Provider Bhanu Godoy MD Unavailable Bhanu Godoy MD Unavailable Encounter Details Date Type Department Care Team Description 11/18/2018 [facility] Only [facility] Hyp ertension, unspecified type; [facility] Facial flushing [id number] [place] [address] Social History Tobacco Use Types Packs/Day [...] documented as of this encounter Miscellaneous Notes Result Encounter Note - Bhanu Godoy MD - 11/18/2018 1:30 PM CST These hormone tests are looking normal Bhanu Godoy MD F ANALYST documented in this encounter Plan of Treatment Not on filedocumented as of this encounter Procedures Procedure Name Priority Date/Time Associated Comments Diagnosis CATECHOLAMINES Routine 11/18/2018 12:18 Hypertension, Results for this FRACTIONED URINE FREE PM STAFF ANALYST unspecifie d type procedure are in Facial flushing the results section. METANEPHRINE RANDOM OR Routine 11/18/2018 12:17 Hypertension, Results for this 24 HR URINE PM STAFF ANALYST unspecified type procedure are in Facial flushing the results section. documented in this encounter Results Catecholamines fractioned free urine (11/18/2018 12:18 PM STAFF ANALYST) athologist Signature Hours Collected 24 11/18/2018 [place] 12:20 PM [facility] Total Urine 1,900 11/18/2018 [place] Volume 12:20 PM [facility] Urine 200 0 - 250 11/20/2018 [place] Dopamine/Creati ug/g ACUTE CARE NURSE 2:29 PM [facility] Urine Dopamine 236 77 - 324 11/20[facility]2018 [facility]d 2:29 PM [facility] Comment: (Note) REFERENCE INTERVAL: Dopamine, Urine - ug /d Access complete set of age- and/or gende r-specific reference intervals for this test in the [facility] Test [facility] ([facility]). Dopamine per Volume Urine 124 ug/L 11/20/2018 2:2 9 PM [facility] Urine 37 0 - 45 ug/g 11/20/2018 2:29 PM [facility] Norepineph/Creatinine ACUTE CARE NURSE [facility] Urine Norepinephrine 44 16 - 71 ug/d 11/20/2018 2:29 PM [facility] Comment: (Note) REFERENCE INTERVAL: Norepinephrine, Urin e - ug/d Access complete set of age- and/or gende r-specific reference intervals for this test in the [facility] Test [facility] ([facility]). Norepinephrine per Volume 23 ug/L 11/20/2018 2:2 9 PM [facility] Urine [facility] Urine <2 0 - 20 ug/g ACUTE CARE NURSE 11/20/2018 2:29 PM [facility] Epinephrine/Creatinine [facility] Urine Epinephrine <2 1 - 7 ug/d 11/20/2018 2:29 PM [facility] Comment: (Note) REFERENCE INTERVAL: Epinephrine, Urine - ug/d Access complete set of age- and/or gende r-specific reference intervals for this test in the [facility] Test [facility] ([facility]). Epinephrine per Volume <1 ug/L 11/20/2018 2:29 P M [facility] Urine [facility] Catecholamines Fract Urine SEE NOTE 11/20/2018 2: 29 PM [facility] Free Interp [facility] Comment: (Note) TEST INFORMATION: Catecholamines Fractio nated, Urine Free The optimal specimen for this testing is a 24-hour urine collection. Mass per day calculations ar e not reported for patients younger than 4 years of age and for the following specimen types: a random collection, a c ollection with duration of less than 20 hours, a collec tion with duration of greater than 28 hours, or a collectio n with total volume less than 400 mL (if 18 years of age or older) or greater than 5000 mL (all ages). Ratios to creat inine may be useful for these evaluations. Smaller increases in catecholamine alfonso ntrations (less than two times the upper limit) usually are the result of physiological stimuli, drugs, or imprope r specimen collection. Significant elevation of one or more catecholamines (three or more times the upper reference limit) is associated with an increased p robability of a neuroendocrine tumor. Access complete set of age- and/or gende r-specific reference intervals for this test in the [facility] Test [facility] ([facility]). Test developed and characteristics deter mined by [facility]. See Compliance Statement B : [facility]/ Creatinine 62 mg/dL 11/20/2018 2:29 PM [facility] Urine/Volume [facility] Creatinine Urine/24hr 1,178 500 - 1,400 11/20/2018 2:29 PM [facility] mg/d [facility] Comment: (Note) Performed by [facility], [address] [place] [address] [email or web address], Wilbert Sanz MD, Lab. Director Specimen Anatomical Collection Method Collection Time Receive d Time (Source) Location / / Volume Laterality Urine specimen 11/18/2018 12:18 9 (specimen) PM STAFF ANALYST 12:19 PM STAFF ANALYST Bhanu Godoy MD LAB - URINE ORDERABLES Performing Organization Address City/State/ZIP Code Phon e Number [facility] [id number] [place] [address] Metanephrine random or 24 hr urine (11/18/2018 12:17 PM STAFF ANALYST) [facility] Method Time Signature Hours Collected 24 11/18/2018 [place] 12:[address] [facility] Total Urine Volume 1,900 11/18/2018 [place] 12:19 PM [facility] Metanephr 24 H 40 0 - 300 11/21/2018 [place] ur/cr ug/g ACUTE CARE NURSE 8:[address] [facility] Metanephrine 24 51 39 - 143 11/21/2018 [place] Hr/Random Urine ug/d 8:26 AM [facility] Metanephrine Urine 27 ug/L 11/21/2018 [place] per Volume 8:26 AM [facility] Normetaneph 24H 266 0 - 400 11/21/2018 [place] ur/cr ug/g ACUTE CARE NURSE 8:26 AM [facility] Normetanephrine 24 338 109 - 393 11/21/2018 [place] Hr/Random Urine ug/d 8:26 AM [facility] Normetanephrine 178 ug/L 11/21/2018 [place] Urine per Volume 8:26 AM [facility] Metanephrine 24 SEE NOTE 11/21/2018 [place] Hr/Random Urine 8:26 AM [facility] Interpretation [facility] Comment: (Note) TEST INFORMATION: Metanephrines Fraction ated, Urine The optimal specimen for this testing is a 24-hour urine collection. Per-day calculations are not reported for patients younger than 7 years of age and for the following specimen types: a random collection, a c ollection with duration of less than 20 hours, a collec tion with duration of greater than 28 hours, or a collectio n with total volume less than 400 mL (if 18 years of age or older) or greater than 5000 mL (all ages). Ratios to creat inine may be useful for these evaluations. Smaller increases in metanephrine and/or normetanephrine concentrations (less than two times the upper reference limit) usually are the result of physiol ogical stimuli, drugs, or improper specimen collection. Essential hypertension is often associated with sl ight elevations (metanephrine less than 400 ug/d and nor metanephrine less than 900 ug/d). Elevated concentrations may be due to intense physical activity, life-threaten ing illness, and drug interferences. Significant elevation of one or both met anephrines (three or more times the upper reference limit) is associated with an increased probability of a neuroendoc rine tumor. Access complete set of age- and/or gende r-specific reference intervals for this test in the [facility] Test [facility] ([facility]). See Compliance statement B: [email or web address] Creatinine 67 mg/dL 11/21/2018 8:26 AM [facility] Urine/Volume STAFF ANALYST [facility] Creatinine Urine/24hr 1,273 500 - 1,400 11/21/2018 8:26 AM [facility] mg/d STAFF ANALYST [facility] Comment: (Note) Performed by [facility], [address] [place] [id number] [email or web address], Wilbert Sanz MD, Lab. Director Specimen Anatomical Collection Method Collection Time Receive d Time (Source) Location / / Volume Laterality Urine specimen 11/18/2018 12:17 9 (specimen) PM STAFF ANALYST 12:18 PM STAFF ANALYST Bhanu Godoy MD LAB - URINE ORDERABLES Performing Organization Address City/State/ZIP Code Phon e Number [facility] [id number] [place], [place] [phone] documented in this encounter Visit Diagnoses Diagnosis Hypertension, unspecified type Facial flushing documented in this encounter Additional Health Concerns Assessment Noted Time PHQ-9 Depression Total Score: 15 11/15/2018 3:49 PM CS T documented as of this encounter 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
--- OUTSIDE RECORDS SUMMARY | 2022-08-10 10:55 | XMS_ITS | Encounter Summary ---
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
--- OUTSIDE RECORDS SUMMARY | 2022-08-10 10:55 | XMS_ITS | Encounter Summary ---
:1965 Author Organization [place] Address [facility] [address] Care Team Providers Name Role Phone No Ref-Primary, Physician Primary Care Provider Cedric Bettencourt MD Unavailable Cedric Bettencourt MD Unavailable Reason for Visit Reason Comments Hypertension Establish Care Pancreatitis Encounter Details Date Type Department Care Team Description 11/15/2018 Office Visit [facility] Cedric Bettencourt, Hyperte nsion, unspecified type (Primary Dx); [facility] [place] Facial flushing; [address] [facility] [id number] [place] [address] Syncope, unspecified syncope type; [place], [place] Mild ma ameya depression (H); [id number] Anxiety; [phone] Hypothyroidism, unspecified type; (Work) Hx of pancreatitis Social History Tobacco Use Types Packs/Day Years [...] Sign Reading Time Taken Comments Blood Pressure 133/74 11/15/2018 1:03 PM BED AND BREAKFAST OPERATOR Pulse 94 11/15/2018 1:03 PM BED AND BREAKFAST OPERATOR Temperature 36.7 ??C (98 ??F) 11/15/2018 1:03 PM BED AND BREAKFAST OPERATOR Respiratory Rate 18 11/15/2018 1:03 PM BED AND BREAKFAST OPERATOR Oxygen Saturation 94% 11/15/2018 1:03 PM BED AND BREAKFAST OPERATOR Inhaled Oxygen Concentration - - Weight 113.9 kg (251 lb) 11/15/2018 1:03 PM BED AND BREAKFAST OPERATOR Height 170.2 cm (5' 7) 11/15/2018 1:03 PM BED AND BREAKFAST OPERATOR Body Mass Index 39.31 11/15/2018 1:03 PM BED AND BREAKFAST OPERATOR documented in this encounter Progress Notes Cedric Bettencourt MD - 11/15/2018 1:00 PM CST SUBJECTIVE: Alphonso Culver is a 53 year old female who presents to clinic today for the following health issues: Hypertension, unspecified type (primary encounter diagnosis)- Patient reports of inconsistant BP readings, face turning beet red, 2 episodes of syncope. Lies down on floor if she feels like she is going to faint, improves her symptoms. Abdominal Pain - Patient reports of her abdomen feeling hard, painless, worsens after eating and radiates into her back. She wishes to be tested for pancreatitis Syncope, unspecified syncope type she reports eval by cardiology with rhythm monitor. Cardiology Dx is tachycardia Mild major depression (H) PHQ9 - 15 GAD7- 10 Anxiety has been her previous dx Hypothyroidism, unspecified type last TSH abnormal Hypertension Hypertension: Outpatient blood pressures: Are being checked Blood pressures checked at: Home and Another location Dietary sodium intake:: No added salt diet History of Present Illness Hypertension: Outpatient blood pressures: Are being checked Blood pressures checked at: Home and Another location Dietary sodium intake:: No added salt diet PAST MEDICAL HISTORY: Past Medical History: Diagnosis [...] Procedure Laterality Date ??? CHOLECYSTECTOMY 1992 ??? [employer] SURGERY hysterectomy ??? HC UGI ENDOSCOPY W [...] use: Yes Comment: 3-4 drinks per month Current Outpatient Medications Medication ??? lzltsib-rmpzfaekzadgf-pudduxmy (EXCEDRIN MIGRAINE) 250-250-65 MG per tablet ??? DULoxetine (CYMBALTA) 60 MG capsule ??? GABAPENTIN PO ??? hydrochlorothiazide (HYDRODIURIL) 25 MG tablet ??? hydrOXYzine (ATARAX) 50 MG tablet ??? levothyroxine (SYNTHROID/LEVOTHROID) 200 MCG tablet ??? meloxicam (MOBIC) 15 MG tablet ??? metoprolol succinate ER (TOPROL-XL) 100 MG 24 hr tablet ??? metoprolol succinate ER (TOPROL-XL) 100 MG 24 hr tablet ??? SUMAtriptan Succinate Refill (IMITREX STATDOSE REFILL) 6 MG/0.5ML SOLN ??? VITAMIN D, CHOLECALCIFEROL, PO No current facility-administered medications for this visit. ROS: Constitutional: NEGATIVE for Fever CV: NEGATIVE for chest pain, palpitations MUSCULOSKELETAL: POSITIVE for back pain ENDOCRINE: flushing, no sweats PSYCHIATRIC: POSITIVE for anxiety, depression This document serves as a record of the services and decisions personally performed and made by Cedric Bettencourt MD. It was created on his behalf by Lauryn Ma, a trained director of graduate medical education. The creation ofthis document is based on the provider's statements to the director of graduate medical education. Lauryn Ma November 15, 2018 1:43 PM OBJECTIVE: BP 133/74 (BP Location: Right arm, Patient Position: Chair, Cuff Size: Adult Large) Pulse 94 Temp 98 ??F (36.7 ??C) (Oral) Resp 18 Ht 1.702 m (5' 7) Wt 113.9 kg (251 lb) SpO2 94% ? No BMI 39.31 kg/m?? Body mass index is 39.31 kg/m??. Attentive No thyromegaly, trachea midline, no nodes HEART: S1S2 RRR no murmur nor apical displacement ABDOMEN without organomegaly nor tenderness to palpation Diagnostic Test Results: Results for orders placed or performed in visit on 11/15/18 (from the past 24 hour(s)) Lipase Result Value Ref Range Lipase 58 (L) 73 - 393 U/L ASSESSMENT/PLAN: (I10) Hypertension, unspecified type (primary encounter diagnosis) Comment: episodically, not at moment. BP Readings from Last 6 Encounters: 11/15/18 133/74 01/06/18 136/78 08/29/17 145/88 07/23/13 97/57 06/26/13 128/56 05/27/13 125/63 Plan: Metanephrine random or 24 hr urine, Catecholamines fractioned free urine, TSH with free T4 reflex, Comprehensive metabolic panel (R23.2) Facial flushing Comment: Discussed differential Plan: Metanephrine random or 24 hr urine, Catecholamines fractioned free urine, TSH with free T4 reflex, Comprehensive metabolic panel (R55) Syncope, unspecified syncope type Comment: She sees cardiology . (E03.9) Hypothyroidism, unspecified type Comment: treated TSH Date Value Ref Range Status 2018 16.42 (H) 0.40 - 4.00 mU/L Final Plan: TSH with free T4 reflex (Z87.19) Hx of pancreatitis Comment: her Symptoms do not suggest pancreatitis Plan: Lipase @ pt request The information in this document, created by the director of graduate medical education for me, accurately reflects the services I personally performed and the decisions made by me. I have reviewed and approved this document for accuracy prior to leaving the patient care area. November 15, 2018 1:42 PM Cedric Bettencourt MD [facility] AND BREAKFAST OPERATOR documented in this encounter Miscellaneous Notes Result Encounter Note - Cedric Bettencourt MD - 11/15/2018 1:00 PM CST Tests are all quite good. No evidence of pancreas problems CEDRIC BETTENCOURT AND BREAKFAST OPERATOR documented in this encounter Plan of Treatment Not on filedocumented as of this encounter Procedures Procedure Name Priority Date/Time Associated Diagnosis Comme nts TSH WITH FREE T4 Routine 11/15/2018 1:52 Hypertension, Results for this REFLEX PM BED AND BREAKFAST OPERATOR unspecified type procedure are in Facial flushing the results Hypothyroidism, section. unspecified type LIPASE Routine 11/15/2018 1:52 Hx of pancreatitis Result s for this BED AND BREAKFAST OPERATOR procedure are i n the results section. COMPREHENSIVE Routine 11/15/2018 1:52 Hypertension, Results fo r this METABOLIC PANEL PM BED AND BREAKFAST OPERATOR unspecified type procedure are in Facial flushing the results section. documented in this encounter Results Catecholamines fractioned free urine (11/18/2018 12:18 PM BED AND BREAKFAST OPERATOR) P athologist Signature Hours Collected 24 11/18/2018 [facility] 12:[address] [facility] Total Urine 1,900 11/18/2018 [facility] Volume 12:[address] [facility] Urine 200 0 - 250 11/20/2018 [facility] Dopamine/Creati ug/g HARBOR BOAT PILOT 2:29 PM [facility] Urine Dopamine 236 77 - 324 11/20/2018 [facility]:[address] [facility] Comment: (Note) REFERENCE INTERVAL: Dopamine, Urine - ug /d Access complete set of age- and/or gende r-specific reference intervals for this test in the [facility] Test Directory ([facility]). Dopamine per Volume Urine 124 ug/L 11/20/2018 2:2 9 PM [facility] Urine 37 0 - 45 ug/g 11/20/2018 2:29 PM [facility] Norepineph/Creatinine HARBOR BOAT PILOT [facility] Urine Norepinephrine 44 16 - 71 ug/d 11/20/2018 2:29 PM [facility] Comment: (Note) REFERENCE INTERVAL: Norepinephrine, Urin e - ug/d Access complete set of age- and/or gende r-specific reference intervals for this test in the [facility] Test Directory ([facility]). Norepinephrine per Volume 23 ug/L 11/20/2018 2:2 9 PM [facility] Urine [facility] Urine <2 0 - 20 ug/g HARBOR BOAT PILOT 11/20/2018 2:29 PM [facility] Epinephrine/Creatinine [facility] Urine Epinephrine <2 1 - 7 ug/d 11/20/2018 2:29 PM [facility] Comment: (Note) REFERENCE INTERVAL: Epinephrine, Urine - ug/d Access complete set of age- and/or gende r-specific reference intervals for this test in the [facility] Test Directory ([facility]). Epinephrine per Volume <1 ug/L 11/20/2018 2:29 P M [facility] Urine [facility] Catecholamines Fract Urine SEE NOTE 11/20/2018 2: 29 PM [facility] Free Interp [facility] Comment: (Note) TEST INFORMATION: Catecholamines Fractio nated, [...] reference intervals for this test in the [facility] Test Directory ([facility]). Test developed and characteristics deter mined by [facility]. See Compliance Statement B : [facility]/ Creatinine 62 mg/dL 11/20/2018 2:29 PM [facility] Urine/Volume [facility] Creatinine Urine/24hr 1,178 500 - 1,400 11/20/2018 2:29 PM [facility] mg/d [facility] Comment: (Note) Performed by [facility], [facility] [place] [address] www.[email or web address], Wilbert Sanz MD, Lab. Director Specimen Anatomical Collection Method Collection Time Receive d Time (Source) Location / / Volume Laterality Urine specimen 11/18/2018 12:18 9 (specimen) PM BED AND BREAKFAST OPERATOR 12:19 PM BED AND BREAKFAST OPERATOR Cedric Bettencourt MD LAB - URINE ORDERABLES Performing Organization Address City/State/ZIP Code Phon e Number [facility] [address] [place] [address] Metanephrine random or 24 hr urine (11/18/2018 12:17 PM BED AND BREAKFAST OPERATOR) [facility] Method Time Signature Hours Collected 24 11/18/2018 [facility] 12:[address] [facility] Total Urine Volume 1,900 11/18/2018 [facility] 12:[address] [facility] Metanephr 24 H 40 0 - 300 11/21/2018 [facility] ur/cr ug/g HARBOR BOAT PILOT 8:[address] [facility] Metanephrine 24 51 39 - 143 11/21/2018 [facility] Hr/Random Urine ug/d 8:[address] [facility] Metanephrine Urine 27 ug/L 11/21/2018 [facility] per Volume 8:[address] [facility] Normetaneph 24H 266 0 - 400 11/21/2018 [facility] ur/cr ug/g HARBOR BOAT PILOT 8:[address] [facility] Normetanephrine 24 338 109 - 393 11/21/2018 [facility] Hr/Random Urine ug/d 8:[address] [facility] Normetanephrine 178 ug/L 11/21/2018 [facility] Urine per Volume 8:[address] [facility] Metanephrine 24 SEE NOTE 11/21/2018 [facility] Hr/Random Urine 8:26 AM [facility] Interpretation [facility] Comment: (Note) TEST INFORMATION: Metanephrines Fraction ated, [...] reference intervals for this test in the [facility] Test Directory ([facility]). See Compliance statement B: www.[employer]/CS Creatinine 67 mg/dL 11/21/2018 8:26 AM [facility] Urine/Volume [facility] Creatinine Urine/24hr 1,273 500 - 1,400 11/21/2018 8:26 AM [facility] mg/d BED AND BREAKFAST OPERATOR [facility] Comment: (Note) Performed by [facility], [address] [place] [id number] www.[email or web address], Wilbert Sanz MD, Lab. Director Specimen Anatomical Collection Method Collection Time Receive d Time (Source) Location / / Volume Laterality Urine specimen 11/18/2018 12:17 9 (specimen) PM BED AND BREAKFAST OPERATOR 12:18 PM BED AND BREAKFAST OPERATOR Cedric Bettencourt MD LAB - URINE ORDERABLES Performing Organization Address City/State/ZIP Code Phon e Number [facility] [address] [place] [address] (ABNORMAL) Lipase (11/15/2018 1:52 PM BED AND BREAKFAST OPERATOR) athologist Signature Lipase 58 (L) 73 - 393 11/15/2018 [facility] 8:10 PM [facility] Specimen Anatomical Collection Method Collection Time Receive d Time (Source) Location / / Volume Laterality Blood specimen 11/15/2018 1:52 PM 019 1:53 (specimen) BED AND BREAKFAST OPERATOR PM BED AND BREAKFAST OPERATOR Cedric Bettencourt MD LAB - BLOOD ORDERABLES Performing Organization Address City/State/ZIP Code Phon e Number [facility] [address] [place], [place] [id number] [place] [address] (ABNORMAL) Comprehensive metabolic panel (11/15/2018 1:52 PM BED AND BREAKFAST OPERATOR) [facility] Method Time Signature Sodium 141 133 - 144 11/17/2018 [facility] mmol/L 1:07 PM [facility] Potassium 4.3 3.4 - 5.3 11/17/2018 [facility] mmol/L 1:07 PM [facility] Chloride 110 (H) 94 - 109 11/17/2018 [facility] mmol/L 1:07 PM [facility] Carbon Dioxide 21 20 - 32 11/17/2018 [facility] mmol/L 1:36 PM [facility] Anion Gap 10 3 - 14 11/17/2018 [facility] mmol/L 1:36 PM [facility] Glucose 88 70 - 99 11/17/2018 [facility] mg/dL 1:36 PM [facility] Urea Nitrogen 21 7 - 30 11/17/2018 [facility] mg/dL 1:36 PM [facility] Creatinine 0.75 0.52 - 11/17/2018 [facility] 1.04 mg/dL 1:36 PM [facility] GFR Estimate 89 >60 11/17/2018 [facility] mL/min/{1. 1:36 PM [facility] 73_m2} [facility] Comment: Non GFR Calc Starting 10/11/2018, serum creatinine ba sed estimated GFR (eGFR) will be calculated using the Chronic Kidney Dise ase Epidemiology Collaboration (CKD-EPI) equation. GFR Estimate If >90 >60 mL/min/{1.73_m2} 11/17/2018 1: 36 PM [facility] Black [facility] Comment: GFR Calc Starting 10/11/2018, serum creatinine ba sed estimated GFR (eGFR) will be calculated using the Chronic Kidney Dise ase Epidemiology Collaboration (CKD-EPI) equation. Calcium 9.5 8.5 - 10.1 11/17/2018 1:36 PM [facility] mg/dL [facility] Bilirubin Total 0.3 0.2 - 1.3 mg/dL 11/17/2018 1:38 PM [facility] Albumin 4.0 3.4 - 5.0 g/dL 11/17/2018 1:38 PM [facility] Protein Total 7.1 6.8 - 8.8 g/dL 11/17/2018 1:38 PM [facility] Alkaline Phosphatase 86 40 - 150 U/L 11/17/2018 1:38 PM [facility] ALT 28 0 - 50 U/L 11/17/2018 1:38 PM [facility] AST 23 0 - 45 U/L 11/17/2018 1:38 PM [facility] Specimen Anatomical Collection Method Collection Time Receive d Time (Source) Location / / Volume Laterality Blood specimen 11/15/2018 1:52 PM 019 1:53 (specimen) BED AND BREAKFAST OPERATOR PM BED AND BREAKFAST OPERATOR Cedric Bettencourt MD LAB - BLOOD ORDERABLES Performing Organization Address City/[facility]/ZIP Code Phon e Number [facility] [address] [place] [id number] TSH with free T4 reflex (11/15/2018 1:52 PM BED AND BREAKFAST OPERATOR) P athologist Signature TSH 2.66 0.40 - 4.00 11/17/2018 [facility] mU/L 1:46 PM [facility] Specimen Anatomical Collection Method Collection Time Receive d Time (Source) Location / / Volume Laterality Blood specimen 11/15/2018 1:52 PM 019 1:53 (specimen) BED AND BREAKFAST OPERATOR PM BED AND BREAKFAST OPERATOR Cedric Bettencourt MD LAB - BLOOD ORDERABLES Performing Organization Address City/[facility] Code Phon e Number [facility] [address] [place] [phone] documented in this encounter Visit Diagnoses Diagnosis Hypertension, unspecified type - Primary Facial flushing Syncope, unspecified syncope type Mild major depression (H) Major depressive disorder, single episod e, mild Anxiety Anxiety state, unspecified Hypothyroidism, unspecified type Hx of pancreatitis Personal history of other diseases of di gestive system documented in this encounter Additional Health Concerns Assessment Noted Time PHQ-9 Depression Total Score: 15 11/15/2018 3:49 PM CS T documented as of this encounter Care Teams Auto Body Painter Relationship Specialty Start Date End Date No Ref-Primary, Physician PCP - General 11/15/18 12/20/18 Cedric Bettencourt MD PCP - Assigned PCP 10/20/18 12/27/18 [id number] [place], [place] [id number] Cedric Bettencourt MD Assigned PCP 10/20/18 02/28/22 [id number] [place], [place] [phone] documented as of this encounter
--- OUTSIDE RECORDS SUMMARY | 2022-08-10 10:55 | XMS_ITS | Encounter Summary ---
:1965 Author Organization [place] Address [facility]ly [facility], later [facility] [place] [address] Care Team Providers Name Role Phone No Ref-Primary, Physician Primary Care Provider [phone] Bhanu Godoy MD Unavailable Bhanu Godoy MD Unavailable Reason for Visit Reason Comments Abdominal Pain Flank Pain Encounter Details Date Type Department Care Team Description 11/27/2018 Emergency [facility] Fatmata Romero MD Flank pain Emergency Dept [address] [facility] [address] [place], [place] [id number] [place] [phone] ([place]) [phone] Social History Tobacco Use Types Packs/Day Years [...] Sign Reading Time Taken Comments Blood Pressure 143/100 11/27/2018 5:16 PM PRICE ACCURACY SUPERVISOR Pulse 82 11/27/2018 5:16 PM PRICE ACCURACY SUPERVISOR Temperature 36.9 ??C (98.5 ??F) 11/27/2018 3:23 PM PRICE ACCURACY SUPERVISOR Respiratory Rate 16 11/27/2018 5:16 PM PRICE ACCURACY SUPERVISOR Oxygen Saturation 94% 11/27/2018 5:16 PM PRICE ACCURACY SUPERVISOR Inhaled Oxygen Concentration - - Weight - - Height - - Body Mass Index - - documented in this encounter Discharge Instructions AttachmentsThe following attachments cannot be sent through Care Everywhere. ABDOMINAL PAIN, UNKNOWN CAUSE, (FEMALE) (ITALIAN)FLANK PAIN, UNCERTAIN CAUSE (ITALIAN)documented in this encounter Medications at Time of Discharge Medication Sig Dispensed Refills Start Date End Date acetaminophen-caffeine Take 2 tablets by 0 (EXCEDRIN TENSION mouth HEADACHE) 500-65 MG TABS pwbeyio-pohhgdbatcvyd-rlxh Take 2 tablets by 0 eine (EXCEDRIN MIGRAINE) mouth every 8 hours 250-250-65 MG per tablet as needed GABAPENTIN PO Take 600 mg by 0 mouth 3 times daily hydrochlorothiazide TAKE 1 TABLET BY 10 10/05/2018 (HYDRODIURIL) 25 MG tablet MOUTH DAILY NEEDED FOR LEG SWELLING hydrOXYzine (ATARAX) 50 MG Take 50 mg by mouth 0 tablet 3 times daily as needed for itching levothyroxine Take 200 mcg by 0 (SYNTHROID/LEVOTHROID) 200 mouth daily MCG tablet meloxicam (MOBIC) 15 MG Take 15 mg by mouth 0 tablet daily metoprolol succinate ER Take 100 mg by 3 10/07/20 18 (TOPROL-XL) 100 MG 24 hr mouth daily tablet VITAMIN D, Take 2,000 Units by 0 CHOLECALCIFEROL, PO mouth daily. DULoxetine (CYMBALTA) 60 Take 60 mg by mouth 0 02/23/2019 MG capsule 2 times daily metoprolol succinate ER Take 100 mg by 0 02/29/20 18 12/08/2018 (TOPROL-XL) 100 MG 24 hr mouth tablet ondansetron (ZOFRAN ODT) 4 Take 1 tablet (4 10 tablet 0 12/201803/01/2019 MG ODT tab mg) by mouth every 8 hours as needed for nausea SUMAtriptan Succinate Inject 6 mg 0 Refill (IMITREX STATDOSE Subcutaneous once. REFILL) 6 MG/0.5ML SOLN May repeat in 1 hr as needed, do not exceed 2 doses per 24hrs documented as of this encounter ED Notes Amanda Palomares RN - 11/27/2018 3:25 PM CST Patient arrives to the ED with back and abdominal pain. Patient has a Hx of kidney stones with surgical intervention. Patient states pain comes and goes. Patient endorses nausea and diarrhea. Of note, patient states she passed out at home and hit her head on Wednesday. Hypertensive, but other VSS. E ACCURACY SUPERVISOR Fatmata Fuentes MD - 11/27/2018 3:16 PM CST History Chief Complaint: Flank Pain UMM Culver is a 53 year old female who presents for evaluation of flank pain. She reports having right sided flank pain that has waxed and waned for the last 4-5 days. Over the last 2 days, the pains have become relentless and she has started vomiting, so she decided to present to the ED for evaluation. Here, she reports the pain wraps around to her right abdomen, but it is worse in the flank. She reports diarrhea and hematuria, but denies any dysuria. She does report a prior history of kidney stones; most recently, she had one surgical removed with additional stent placement in April 2018. Of note, she reports a syncopal episode three days ago, however she has a history of these episodes and had her typical preceding symptoms at this time. She reports having a full cardiology work up after one of these episodes with inconclusive results. Allergies: NKDA Medications: Duloxetine Gabapentin Hydrochlorothiazide Hydroxyzine Levothyroxine Meloxicam Metoprolol Past Medical History: Anxiety & Depression Chronic abdominal pain HTN Migraines Narcotic withdrawal Nephrolithiasis Syncope Thyroid disease Past Surgical History: Cholecystectomy Hysterectomy Cystoscopy, stents inserted UGI endoscopy Cervical spine fusion Family History: CAD Lung fibrosis Diabetes Social History: Marital Status: [2] at bedside. Negative for tobacco use. Positive for alcohol use. Comment: 3-4 drinks/month Review of Systems Constitutional: Negative for fever. Gastrointestinal: Positive for diarrhea, nausea and vomiting. Genitourinary: Positive for flank pain and hematuria. Negative for dysuria. All other systems reviewed and are negative. Physical Exam Patient Vitals for the past 24 hrs: BP Temp Temp src Pulse Heart Rate Resp SpO2 11/27/18 1600 (!) 180/104 -- -- 82 -- -- -- 11/27/18 1530 (!) 143/100 -- -- 83 -- -- 94 % 11/27/18 1523 (!) 175/93 98.5 ??F (36.9 ??C) Oral 89 89 16 94 % Physical Exam General: Patient is alert and interactive when I enter the room Head: The scalp, face, and head appear normal Eyes: Conjunctivae are normal ENT: The nose is normal Pinnae are normal External acoustic canals are normal Neck: Trachea midline CV: Pulses are normal. Resp: No respiratory distress Abdomen: Soft, right CVA tenderness and mild RUQ tenderness, non-distended Musc: Normal muscular tone No major joint effusions No asymmetric leg swelling Skin: No rash or lesions noted Neuro: Speech is normal and fluent. Face is symmetric. Moving all extremities well. Psych: Awake. Alert. Normal affect. Appropriate interactions. Emergency Department Course ECG: Indication: Syncope Time: 1711 Vent. Rate 70 bpm. MI interval 160. QRS duration 78. QT/QTc 444/479. P-R-T axis 34 30 42. Normal sinus rhythm. Normal ECG. Read time: 1711. Imaging: Radiographic findings were communicated with the patient who voiced understanding of the findings. CT Abdomen/Pelvis w/o IV contrast-stone protocol: 1. Fatty infiltration of the liver. 2. Numerous small bilateral renal calcifications without hydronephrosis or ureteral calculi. 3. No acute-appearing bowel abnormality, as per radiology. Laboratory: CBC: WBC: 7.7, HGB: 15.6, PLT: 391 CMP: Glucose 112 (H), o/w WNL (Creatinine: 0.93) Lipase: 129 1551 Lactic acid: 2.3 (H) UA with Microscopic: Albumin: 30 (A), Leukocyte esterase: Small (A), WBC: 9 (H), Squamous epithelial: 2 (H), Mucous: Present (A), o/w WNL Interventions: 1548 NS 1L IV Dilaudid, 0.5 mg, IV injection Zofran, 4 mg, IV injection Emergency Department Course: Nursing notes and vitals reviewed. (2415) I performed an exam of the patient as documented above. ?? IV inserted. Medicine administered as documented above. Blood drawn. This was sent to the lab for further testing, results above. ?? The patient was sent for an abdomen/pelvis CT while in the emergency department, findings above. ?? The patient provided a urine sample here in the emergency department. This was sent for laboratory testing, findings above. (165) I rechecked the patient and discussed the results of her workup thus far. ?? EKG obtained in the ED, see results above. Findings and plan explained to the Patient. Patient discharged home with instructions regarding supportive care, medications, and reasons to return. The importance of close follow-up was reviewed. The patient was prescribed Zofran. ?? I personally reviewed the laboratory and imaging results with the Patient and answered all related questions prior to discharge. Impression & Plan [facility] Diagnoses: The Lactic acid level is elevated due to dehydration, at this time there is no sign of severe sepsis or septic shock. Medical Decision Making: Alphonso Culver is a 53 year old female who presents with right sided flank pain. Associated symptoms include nausea and vomiting. A broad differential diagnosis was considered including diverticulitis, ureterolithiasis, tumor, colitis, cholecystitis, aneurysm, dissection, hydronephrosis, pneumonia, rib fracture, UTI, pyelonephritis amongst many other etiologies. The workup in the ED is at this point negative. CTAP was negative. UA showed negative. No etiology for the patients pain is found at thispoint and my suspicion of an intraabdominal or intrathoracic catastrophe or other worrisome etiologyis very low. I will not therefore admit for serial exams and further workup. Patient is hemodynamically stable in ED. Plan is home with Zofran and flank pain recheck by primary care physician or returnto ED at that time. Return for fevers greater than 102, increasing pain, other new symptoms develop.Flank pain handout given. Questions were answered. Critical Care time: none Diagnosis: ICD-10-CM 1. Flank pain R10.9 Disposition: discharged to home Discharge Medications: Medication List Started ondansetron 4 MG ODT tab Commonly known as: ZOFRAN ODT 4 mg, Oral, EVERY 8 HOURS PRN Scribe Disclosure: I, Corie Elias, am serving as a scribe on 11/27/2018 at 3:24 PM to personally document services performed by Fatmata Fuentes MD based on my observations and the provider's statements to me. Corie Elias 11/27/2018 [facility] EMERGENCY DEPARTMENT Fatmata Fuentes MD 11/30/18 1012 E ACCURACY SUPERVISOR documented in this encounter Plan of Treatment Not on filedocumented as of this encounter Procedures Procedure Name Priority Date/Time Associated Comments Diagnosis EKG 12-LEAD, TRACING STAT 11/27/2018 5:11 PM R esults for this ONLY PRICE ACCURACY SUPERVISOR procedure are i n the results section. EKG 12-LEAD, TRACING STAT 11/27/2018 5:06 PM R esults for this ONLY PRICE ACCURACY SUPERVISOR procedure are i n the results section. CT ABDOMEN PELVIS W/O STAT 11/27/2018 4:26 PM Results for this CONTRAST PRICE ACCURACY SUPERVISOR procedure are i n the results section. CBC WITH PLATELETS & STAT 11/27/2018 3:51 PM R esults for this DIFFERENTIAL PRICE ACCURACY SUPERVISOR procedure are i n the results section. ROUTINE UA WITH STAT 11/27/2018 3:51 PM Result s for this MICROSCOPIC PRICE ACCURACY SUPERVISOR procedure are i n the results section. LIPASE STAT 11/27/2018 3:51 PM Results f or this PRICE ACCURACY SUPERVISOR procedure are i n the results section. LACTIC ACID WHOLE STAT 11/27/2018 3:51 PM Resu lts for this BLOOD PRICE ACCURACY SUPERVISOR procedure are i n the results section. COMPREHENSIVE STAT 11/27/2018 3:51 PM Results for this METABOLIC PANEL PRICE ACCURACY SUPERVISOR procedure ar e in the results section. documented in this encounter Results EKG 12 lead (11/27/2018 5:11 PM PRICE ACCURACY SUPERVISOR) [facility] gist Method Time Signature Interpretation ECG Click View RADIOLOGY Image link RESULTS to view waveform and result Specimen (Source) Anatomical Collection Method Collection Time Re ceived Time Location / / Volume Laterality 11/27/2018 5:11 PM PRICE ACCURACY SUPERVISOR Fatmata Fuentes MD ECG ORDERABLES Performing Organization Address City/State/ZIP Code Phon e Number RADIOLOGY RESULTS EKG 12-lead, tracing only (11/27/2018 5:06 PM PRICE ACCURACY SUPERVISOR) [facility] gist Method Time Signature Interpretation ECG Click View RADIOLOGY Image link RESULTS to view waveform and result Specimen (Source) Anatomical Collection Method Collection Time Re ceived Time Location / / Volume Laterality 11/27/2018 5:06 PM PRICE ACCURACY SUPERVISOR Fatmata Fuentes MD ECG ORDERABLES Performing Organization Address City/State/ZIP Code Phon e Number RADIOLOGY RESULTS Abd/pelvis CT no contrast - Stone Protocol (11/27/2018 4:26 PM PRICE ACCURACY SUPERVISOR) Anatomical Region Laterality Modality Abdomen/Pelvis, SUBRAD CT BODY, UMP CT ABDOMEN PELVIS, Computed Tomography RAD CT Specimen (Source) Anatomical Location Collection Method / Collectio n Time Received Time / Laterality Volume Impressions 11/27/2018 8:38 PM PRICE ACCURACY SUPERVISOR IMPRESSION: 1. Fatty infiltration of the liver. 2. Numerous small bilateral renal calcif ications without hydronephrosis or ureteral calculi. 3. No acute-appearing bowel abnormality. ? RUFINA HERNANDEZ MD Narrative 11/27/2018 8:[address]URACY SUPERVISOR [address] ABDOMEN AND PELVIS WITHOUT CONTRAST ??11/27/2018 4:26 PM TECHNIQUE: Images from diaphragm to pubi c symphysis without contrast. Radiation dose for this scan was reduced using automated exposure control, adjustment of the mA and/or kV according to patient size, or iterative reconstruction technique. HISTORY: Right flank pain, stone disease suspected. COMPARISON: 04/18/2013 CT chest, abdomen, pelvis. FINDINGS: Abdomen and Pelvis: Numerous bilateral n onobstructing renal calcifications are identified. No hydron ephrosis or ureteral or bladder calculi. The calcifications 0.3 cm or less in size bilaterally with numerous clustered calcifications i n the peripheral calyces or possibly medullary pyramids. No perineph dakota stranding. Subtle low-attenuation right renal lesion image 26 is similar to the previous 2013 CT . No periaortic or pelvic adenopathy. No f ree fluid. Absent uterus. No acute-appearing bowel abnormality. The a ppendix appears normal. The lung bases are clear. Cholecystectom y clips. Diffuse fatty infiltration of the liver. Within the li mitations of a noncontrast exam the spleen, pancreas and adrenal gl ands are unremarkable. No aggressive bone lesions. Procedure Note Rufina Hernandez MD - 11/27/2018For matting of this note might be different from the original. CT ABDOMEN AND PELVIS WITHOUT CONTRAST 4:26 PM TECHNIQUE: Images from diaphragm to pubi c symphysis without contrast. Radiation dose for this scan was reduced using automated exposure control, adjustment of the mA and/or kV according to patient size, or iterative reconstruction technique. HISTORY: Right flank pain, stone disease suspected. COMPARISON: 04/18/2013 CT chest, abdomen, pelvis. FINDINGS: Abdomen and Pelvis: Numerous bilateral n onobstructing renal calcifications are identified. No hydron ephrosis or ureteral or bladder calculi. The calcifications 0.3 cm or less in size bilaterally with numerous clustered calcifications i n the peripheral calyces or possibly medullary pyramids. No perineph dakota stranding. Subtle low-attenuation right renal lesion image 26 is similar to the previous 2013 CT . No periaortic or pelvic adenopathy. No f ree fluid. Absent uterus. No acute-appearing bowel abnormality. The a ppendix appears normal. The lung bases are clear. Cholecystectom y clips. Diffuse fatty infiltration of the liver. Within the li mitations of a noncontrast exam the spleen, pancreas and adrenal gl ands are unremarkable. No aggressive bone lesions. IMPRESSION: 1. Fatty infiltration of the liver. 2. Numerous small bilateral renal calcif ications without hydronephrosis or ureteral calculi. 3. No acute-appearing bowel abnormality. RUFINA HERNANDEZ MD Fatmata Fuentes MD IMG CT ORDERABLES (ABNORMAL) UA with Microscopic (11/27/2018 3:51 PM PRICE ACCURACY SUPERVISOR) [facility] gist Method Time Signature Color Urine Yellow 11/27/2018 [facility] 4:08 PM [facility] Appearance Urine Clear 11/27/2018 [facility] 4:08 PM [facility] Glucose Urine Negative NEG^Negat 11/27/2018 [facility] brandie mg/dL 4:08 PM [facility] Bilirubin Urine Negative NEG^Negat 11/27/2018 [facility] brandie 4:08 PM [facility] Ketones Urine Negative NEG^Negat 11/27/2018 [facility] brandie mg/dL 4:08 PM [facility] Specific [place] 1.023 1.003 - 11/27/2018 [facility] Urine 1.035 4:08 PM [facility] Blood Urine Negative NEG^Negat 11/27/2018 [facility] brandie 4:08 PM [facility] pH Urine 5.0 5.0 - 7.0 11/27/2018 [facility] pH 4:08 PM [facility] Protein Albumin 30 (A) NEG^Negat 11/27/2018 [facility] Urine brandie mg/dL 4:08 PM [facility] Urobilinogen 0.0 0.0 - 2.0 11/27/2018 [facility] mg/dL mg/dL 4:08 PM [facility] Nitrite Urine Negative NEG^Negat 11/27/2018 [place] brandie 4:08 PM [facility] Leukocyte Small (A) NEG^Negat 11/27/2018 [place] Esterase Urine brandie 4:08 PM [facility] Source Midstream 11/27/2018 [place] Urine 3:53 PM [facility] WBC Urine 9 (H) 0 - 5 11/27/2018 [facility] /HPF 4:08 PM [facility] RBC Urine 2 0 - 2 11/27/2018 [facility] /HPF 4:08 PM [facility] Squamous 2 (H) 0 - 1 11/27/2018 [place] Epithelial /HPF /HPF 4:08 PM [facility] Mucous Urine Present (A) NEG^Negat 11/27/2018 [place] brandie /LPF 4:08 PM [facility] Specimen (Source) Anatomical Collection Method Collection Time Re ceived Time Location / / Volume Laterality Examination of 11/27/2018 3:51 11/27/2018 3:56 midstream urine PM PRICE ACCURACY SUPERVISOR PM PRICE ACCURACY SUPERVISOR specimen (procedure) Fatmata Fuentes MD LAB - URINE ORDERABLES Performing Organization Address City/State/ZIP [facility] Phon e Number M [facility] [address] [address] [facility] [address] [phone] (ABNORMAL) Lactic acid whole blood (11/27/2018 3:51 PM PRICE ACCURACY SUPERVISOR) P athologist Signature Lactic Acid 2.3 (H) 0.7 - 2.0 11/27/2018 [place] mmol/L 4:04 PM [facility] Specimen Anatomical Collection Method Collection Time Receive d Time (Source) Location / / Volume Laterality Blood specimen 11/27/2018 3:51 PM 019 3:57 (specimen) PRICE ACCURACY SUPERVISOR PM PRICE ACCURACY SUPERVISOR Fatmata Fuentes MD LAB - BLOOD ORDERABLES Performing Organization Address City/State/ZIP [facility] Phon e Number M [facility] [address] [place], [place] [address] [facility] [address] [address] 7, [facility] [phone] Lipase (11/27/2018 3:51 PM PRICE ACCURACY SUPERVISOR) athologist Signature Lipase 129 73 - 393 11/27/2018 [facility] U/L 4:18 PM [facility] Specimen Anatomical Collection Method Collection Time Receive d Time (Source) Location / / Volume Laterality Blood specimen 11/27/2018 3:51 PM 019 3:57 (specimen) PRICE ACCURACY SUPERVISOR PM PRICE ACCURACY SUPERVISOR Fatmata Fuentes MD LAB - BLOOD ORDERABLES Performing Organization Address City/State/ZIP Code Phon e Number M [facility] [address] [place], [place] [address] [facility] [address] [place], [place] [address] [phone] (ABNORMAL) Comprehensive metabolic panel (11/27/2018 3:51 PM PRICE ACCURACY SUPERVISOR) athologist Signature Sodium 140 133 - 144 11/27/2018 [facility] mmol/L 4:09 PM [facility] Potassium 3.9 3.4 - 5.3 11/27/2018 [facility] mmol/L 4:09 PM [facility] Chloride 102 94 - 109 11/27/2018 [facility] mmol/L 4:09 PM [facility] Carbon Dioxide 29 20 - 32 11/27/2018 [facility] mmol/L 4:15 PM [facility] Anion Gap 9 3 - 14 11/27/2018 [facility] mmol/L 4:15 PM [facility] Glucose 112 (H) 70 - 99 11/27/2018 [facility] mg/dL 4:15 PM [facility] Urea Nitrogen 20 7 - 30 11/27/2018 [facility] mg/dL 4:15 PM [facility] Creatinine 0.93 0.52 - 11/27/2018 [facility] 1.04 mg/dL 4:15 PM [facility] GFR Estimate 69 >60 11/27/2018 [facility] mL/min/{1. 4:15 PM [facility] 73_m2} [facility]OS[facility] Comment: Non GFR Calc Starting 10/11/2018, serum creatinine ba sed estimated GFR (eGFR) will be calculated using the Chronic Kidney Dise ase Epidemiology Collaboration (CKD-EPI) equation. GFR Estimate If 80 >60 mL/min/{1.73_m2} 11/27/2018 4: [address] [facility] Comment: GFR Calc Starting 10/11/2018, serum creatinine ba sed estimated GFR (eGFR) will be calculated using the Chronic Kidney Dise ase Epidemiology Collaboration (CKD-EPI) equation. Calcium 9.2 8.5 - 10.1 mg/dL 11/27/2018 4:15 PM [facility] Bilirubin Total 0.4 0.2 - 1.3 mg/dL 11/27/2018 4:18 PM [facility] Albumin 4.1 3.4 - 5.0 g/dL 11/27/2018 4:18 PM [facility] Protein Total 7.8 6.8 - 8.8 g/dL 11/27/2018 4:18 PM [facility] Alkaline Phosphatase 107 40 - 150 U/L 11/27/2018 4:18 PM [facility] ALT 43 0 - 50 U/L 11/27/2018 4:18 PM [facility] AST 28 0 - 45 U/L 11/27/2018 4:18 PM [facility] Specimen Anatomical Collection Method Collection Time Receive d Time (Source) Location / / Volume Laterality Blood specimen 11/27/2018 3:51 PM 019 3:57 (specimen) PRICE ACCURACY SUPERVISOR PM PRICE ACCURACY SUPERVISOR Fatmata Fuentes MD LAB - BLOOD ORDERABLES Performing Organization Address City/State/ZIP Code Phon e Number M [place] [address] [phone] CBC with platelets differential (11/27/2018 3:51 PM PRICE ACCURACY SUPERVISOR) [facility] Method Time Signature WBC 7.7 4.0 - 11/27/2018 [facility] 11.0 4:01 PM [facility] 10e9/L [facility] RBC Count 5.02 3.8 - 5.2 11/27/2018 [facility] 10e12/L 4:01 PM [facility] Hemoglobin 15.6 11.7 - 11/27/2018 [facility] 15.7 g/dL 4:01 PM [facility] Hematocrit 45.2 35.0 - 11/27/2018 [facility] 47.0 % 4:01 PM [facility] MCV 90 78 - 100 11/27/2018 [facility] fl 4:01 PM [facility] MCH 31.1 26.5 - 11/27/2018 [facility] 33.0 pg 4:01 PM [facility] MCHC 34.5 31.5 - 11/27/2018 [facility] 36.5 g/dL 4:01 PM [facility] RDW 13.6 10.0 - 11/27/2018 [facility] 15.0 % 4:01 PM [facility] Platelet Count 391 150 - 450 11/27/2018 [facility] 10e9/L 4:01 PM [facility] Diff Method Automated 11/27/2018 [facility] Method 4:01 PM [facility] % Neutrophils 34.8 % 11/27/2018 [facility] 4:01 PM [facility] % Lymphocytes 47.0 % 11/27/2018 [facility] 4:01 PM [facility] % Monocytes 11.7 % 11/27/2018 [facility] 4:01 PM [facility] % Eosinophils 4.8 % 11/27/2018 [facility] 4:01 PM [facility] % Basophils 1.6 % 11/27/2018 [facility] 4:01 PM [facility] % Immature 0.1 % 11/27/2018 [facility] Granulocytes 4:01 PM [facility] Nucleated RBCs 0 0 /100 11/27/2018 [facility] 4:01 PM [facility] Absolute 2.7 1.6 - 8.3 11/27/2018 [facility] Neutrophil 10e9/L 4:01 PM [facility] Absolute 3.6 0.8 - 5.3 11/27/2018 [facility] Lymphocytes 10e9/L 4:01 PM [facility] Absolute 0.9 0.0 - 1.3 11/27/2018 [facility] Monocytes 10e9/L 4:01 PM [facility] Absolute 0.4 0.0 - 0.7 11/27/2018 [facility] Eosinophils 10e9/L 4:01 PM [facility] Absolute 0.1 0.0 - 0.2 11/27/2018 [facility] Basophils 10e9/L 4:01 PM PRICE ACCURACY SUPERVISOR [facility] Abs Immature 0.0 0 - 0.4 11/27/2018 [place] Granulocytes 10e9/L 4:01 PM [facility] Absolute 0.0 11/27/2018 [place] Nucleated RBC 4:01 PM [facility] Specimen Anatomical Collection Method Collection Time Receive d Time (Source) Location / / Volume Laterality Blood specimen 11/27/2018 3:51 PM 019 3:57 (specimen) PRICE ACCURACY SUPERVISOR PM PRICE ACCURACY SUPERVISOR Fatmata Fuentes MD LAB - BLOOD ORDERABLES Performing Organization Address City/State/ZIP Code Phon e Number M [place] [address] [address] [place], [place] [address] [facility] [address] [phone] documented in this encounter Visit Diagnoses Diagnosis Flank pain Abdominal pain, unspecified site documented in this encounter Administered Medications Inactive Administered Medications - up to 3 most recent administrations Medication Order MAR Action Action Date Dose Rate Site 0.9% sodium chloride BOLUS New Bag 11/27/2018 3:48 PM PRICE ACCURACY SUPERVISOR 1,000 mLs 1000 mL/hr Intravenous, 1,000 mL, ONCE, at 1,000 mL/hr, Administer over 1 Hours, On 11/27/18 at 1531, For 1 dose HYDROmorphone (PF) (DILAUDID) injection 0.5 Given 11/27/2018 3:48 PM PRICE ACCURACY SUPERVISOR 0.5 mg mg 0.5 mg, Intravenous, EVERY 15 MIN PRN, moderate to severe pain, Starting on 11/27/18 at 1529, For 3 doses, For ordered IV doses 0.1-4 mg give IV Push undiluted. Administer each 2mg over 2-5 minutes. ondansetron (ZOFRAN) injection 4 mg Given 11/27/2018 3:48 PM PRICE ACCURACY SUPERVISOR 4 mg 4 mg, Intravenous, EVERY 30 MIN PRN, nausea, vomiting, Administer over 2-5 Minutes, Starting on 11/27/18 at 1529, For 3 doses, May repeat in 30 minutes as needed, up to 3 doses. Irritant. For ordered IV doses 0.1-4 mg, give IV Push undiluted over 2-5 minutes. sodium chloride 0.9% infusion at 125 mL/hr, Intravenous, CONTINUOUS, A dminister after the bolus., Starting on 11/27/18 at 1531, Until 11/27/18 at 1917 documented in this encounter Active and Recently Administered Medications Times are shown in PRICE ACCURACY SUPERVISOR. Scheduled Medication Order 11/25/2018 11/26/2018 11/27/2018 0.9% sodium chloride BOLUS (COMPLETED) 1548 (New Bag - Provider: Amanda Palomares RN)1654 (Stopped - Provider: Amanda Palomares RN) Intravenous, 1,000 mL, ONCE, at 1,000 mL /hr, Administer over 1 Hours, 11/27/18 at 1531, For 1 dose Continuous Medication Order 11/25/2018 11/26/2018 11/27/2018 sodium chloride 0.9% infusion 15 31 (Canceled Entry - Provider: Orders Generic Provider - Comment: Automatically canceled at discontinue of medication order) at 125 mL/hr, Intravenous, CONTINUOUS, A dminister after the bolus., Starting 11/27/18 at 1531, Until 11/27/18 at 1917 PRN Medication Order 11/25/2018 11/26/2018 11/27/2018 HYDROmorphone (PF) (DILAUDID) injection 0.5 mg 1548 (Given - Provider: Amnada Palomares RN) 0.5 mg, Intravenous, EVERY 15 MIN PRN, 3 doses, Starting 11/27/18 at 1529, Until 11/27/18 at 1917, moderate to severe pain, For ordered IV doses 0.1-4 mg give IV Push undiluted. Administer each 2mg over 2-5 minutes. ondansetron (ZOFRAN) injection 4 mg 1548 (Given - Provider: Amanda Palomares RN) 4 mg, Intravenous, EVERY 30 MIN PRN, deejay sea, vomiting, Administer over 2-5 Minutes, Starting 11/27/18 at 1529, For 3 doses, May repeat in 30 minutes as needed, up to 3 doses. Irritant. For ordered IV doses 0.1-4 mg, give IV Push undiluted over 2-5 minutes. documented in this encounter Additional Health Concerns Assessment Noted Time PHQ-9 Depression Total Score: 15 11/15/2018 3:49 PM CS T documented as of this encounter Care Teams Recycling Operations Manager Relationship Specialty Start Date End Date No Ref-Primary, Physician PCP - General 11/15/18 12/20/18 Bhanu Godoy MD PCP - Assigned PCP 10/20/18 12/27/18 [id number] [place] [address] Bhanu Godoy MD Assigned PCP 10/20/18 02/28/22 [address] [place] [address] documented as of this encounter
--- OUTSIDE RECORDS SUMMARY | 2022-08-10 10:55 | XMS_ITS | Encounter Summary ---
:1965 Author Organization Reserve Address [address] [place] [address] Care Team Providers Name Role Phone Jeremie Perkins DO Primary Care Provider No Ref-Primary, Physician Primary Care Provider [phone] Bhanu Godoy MD Unavailable Bhanu Godoy MD Primary Care Provider Bhanu Godoy MD Unavailable FadyJeremie byrnes DO Primary Care Provider Adams Dove MD Unavailable [phone] Encounter Details Date Type Department Care Team Description 05/17/2018 [facility] - 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 to [...] 7:47 AM CDT documented in this encounter Plan of Treatment Not on filedocumented as of this encounter Visit Diagnoses Not on filedocumented in this encounter Care Teams Loading Shovel Oiler Relationship Specialty Start Date End Date Jeremie Perkins DO PCP - General Family Practice 08/29/17 11/14/18 No Ref-Primary, PCP - General 11/15/18 12/20/18 Physician Bhanu Godoy MD PCP - Assigned PCP 10/20/18 12/27/18 [id number] [place], [place] [phone] Bhanu Godoy MD PCP - General Family Practice 12/21/18 01/01/20 [id number] [place], [place] [id number] Jeremie Perkins DO PCP - General Family Practice 01/02/20 [facility] [address] [place] [phone] Bhanu Godoy MD Assigned PCP 10/20/18 02/28/22 [address] [place] [address] Adams Dove Assigned Rheumatology 08/16/20 09/07/20 MD Jake Provider [facility] [address] [place] [address] documented as of this encounter
--- OUTSIDE RECORDS SUMMARY | 2022-08-10 10:55 | XMS_ITS | Encounter Summary ---
:1965 Author Organization [facility] Address [address] [place] [id number] Care Team Providers Name Role Phone Jeremie Perkins DO Primary Care Provider Reason for Visit Auth/Cert Specialty Diagnoses / Procedures Referred By Contact Refer red To Contact Med Surg Diagnoses Syncope and collapse Urinary tract infection without hematuria, site unspecified Syncope Observation Dept [address] [place], [place] [phone] Phone: Referral ID Status Reason Start Date Expiration Date Visits Requ ested Visits Authorized 01/06/2018 01/06/2019 Encounter Details Date Type Department Care Team Description 2018 - [facility] Chinmay Calvin Cla, MD [facility] [address] [place], [place] [id number] Syncope and collapse; 01/06/2018 [facility] Keyur Crook MD Urinary tract infection without hematuri a, site unspecified Dept [address] [place] [address] Social History Tobacco Use Types Packs/Day Years [...] Sign Reading Time Taken Comments Blood Pressure 136/78 01/06/2018 2:53 PM CDT Pulse - - Temperature 36 ??C (96.8 ??F) 01/06/2018 2:53 PM CDT Respiratory Rate 16 01/06/2018 2:53 PM CDT Oxygen Saturation 97% 01/06/2018 2:53 PM CDT Inhaled Oxygen Concentration - - Weight 110.1 kg (242 lb 12.8 oz) 2018 11:20 PM CDT Height 170.2 cm (5' 7) 2018 11:20 PM CDT Body Mass Index 38.03 2018 11:20 PM CDT documented in this encounter Discharge Summaries Nilda Cuevas PA-C - 01/06/2018 2:30 PM CDT [facility] Outpatient / Observation Unit Discharge Summary Richar Culver Date of : 1965 Age: [age] year old Date of Admission: 2018 Date of Discharge: 01/06/2018 3:00 PM Admitting Physician: Keyur Braga MD Discharge Physician: Nilda Cuevas PA-C Discharging Service: Hospitalist Primary Provider: Jeremie Perkins Primary Care Physician Primary Discharge Diagnoses: Richar Culver was admitted on 2018 for episode of syncope. Patient presented with lightheadedness and transient loss of consciousness with repeat episode while in ED. ED work up was rather unremarkable with negative metabolic and infectious work up. Orthostatics were negative. She was found analia tachycardic in ED. Admitting provider thought this was vasovagal syncope and started her on IV fluids. Overnight her heart was monitored with no significant pauses. Echocardiogram was performed which only showed some mild diastolic dysfunction. She was feeling fine the following AM except for headache. 1. Syncopal Episode: Suspect vaso-vagal in nature but discharged on heart monitor to look for arrhythmia. 2. Headache: No concerning neurological findings. Thought to be migranous. Avoided narcotics given history of dependence. Secondary Discharge Diagnoses: Past Medical History: Diagnosis Date ??? Anxiety ??? Migraine ??? Pancreatitis 3 episode 1996- 2004 ??? Thyroid disease Code Status: Full Code Brief Hospital Summary: Reason for your hospital stay You were admitted for concerns of syncope. No cause was found in the emergency room for the syncope but we suspect it was a vaso vagal response which caused decreased blood flow to your brain. We monitored your heart overnight with no abnormal findings. You had an echocardiogram done that showed normal heart function except for some early signs of heart failure and no valvular abnormalities. We will send you home with a heart monitor. Given your negative work up we are comfortable sending you home with follow up with your primary care provider. We will call you tomorrow if your urine culture is positive. Please refer to initial admission history and physical for further details. Briefly, Richar Culver was admitted on 2018 for episode of syncope. Initial work up in the ED did not reveal evidence of significant cardiac arrhthymias or neurologic abnormalities. Pt was registered to the Observation Unit for further evaluation. Pt was placed on telemetry and started on IVF hydration. ECHO was performed to r/o significant valvular dysfunction with results outlined below. Labs reviewed and significant results addressed. On the day of discharge, pt has not had any further episodes of syncope, no significant arrhythmias detectedor concerning ECHO findings as the cause of syncope. Vitals were stable and pt was deemed safe for discharge. Medications were reviewed and adjustments made as necessary. Pt is instructed to follow up as below. Significant Lab During Hospitalization: No results for input(s): WBC, HGB, HCT, MCV, PLT in the last 168 hours. No results for input(s): NA, POTASSIUM, CHLORIDE, CO2, ANIONGAP, GLC, BUN, CR, GFRESTIMATED, GFRESTBLACK, SEJAL, MAG, PHOS, PROTTOTAL, ALBUMIN, BILITOTAL, ALKPHOS, AST, ALT in the last 168 hours. No results for input(s): TSH in the last 168 hours. No results for input(s): TROPONIN, TROPI, TROPR in the last 168 hours. Invalid input(s): TROP, TROPONINIES Significant Imaging During Hospitalization: No results found for this or any previous visit (from the past 24 hour(s)). Pending Results: Unresulted Labs Ordered in the Past 30 Days of this Admission No orders found from 11/06/2017 to 01/06/2018. Consultations This Hospital Stay: No consultations were requested during this admission Discharge Instructions and Follow-Up: Follow-up Appointments Follow-up and recommended labs and tests Follow up with primary care provider, Jeremie Perkins, within 7 days for hospital follow- up. No follow up labs or test are needed. Discharge Disposition: Discharged to home Discharge Medications: Discharge Medication List as of 01/06/2018 2:52 PM CONTINUE these medications which have NOT CHANGED Details GABAPENTIN PO Take 600 mg by mouth 3 times daily , Historical vualuut-uckbkophvlufg-jnycuawy (EXCEDRIN MIGRAINE) 250-250-65 MG per tablet Take 2 tablets by mouth every 8 hours as needed, 2 tablet, Oral, EVERY 8 HOURS PRN, Until Discontinued, Historical Levothyroxine Sodium (SYNTHROID PO) Take 175 mcg by mouth daily., 175 mcg, Oral, DAILY, Until Discontinued, Historical VITAMIN D, CHOLECALCIFEROL, PO Take 2,000 Units by mouth daily., 2,000 Units, Oral, DAILY, Until Discontinued, Historical SUMAtriptan Succinate Refill (IMITREX STATDOSE REFILL) 6 MG/0.5ML SOLN Inject 6 mg Subcutaneous once. May repeat in 1 hr as needed, do not exceed 2 doses per 24hrs, 6 mg, Subcutaneous, ONCE, Historical Allergies: No Known Allergies Condition and Physical on Discharge: Discharge condition: Stable Vitals: Blood pressure 136/78, temperature 96.8 ??F (36 ??C), temperature source Oral, resp. rate 16, height 1.702 m (5' 7), weight 110.1 kg (242 lb 12.8 oz), SpO2 97 %. 242 lbs 12.8 oz GENERAL: Comfortable. PSYCH: pleasant, oriented, No acute distress. HEENT: PERRLA. Normal conjunctiva, normal hearing, nasal mucosa and Oropharynx are normal. NECK: Supple, no neck vein distention, adenopathy or bruits, normal thyroid. HEART: Normal S1, S2 with no murmur, no pericardial rub, gallops or S3 or S4. LUNGS: Clear to auscultation, normal Respiratory effort. No wheezing, rales or ronchi. ABDOMEN: Soft, no hepatosplenomegaly, normal bowel sounds. Non-tender, non distended. EXTREMITIES: No pedal edema, +2 pulses bilateral and equal. SKIN: Dry to touch, No rash, wound or ulcerations. NEUROLOGIC: CN 2-12 grossly intact, sensation is intact with no focal deficits. documented in this encounter Discharge Instructions AttachmentsThe following attachments cannot be sent through Care Everywhere. SYNCOPE, WHAT IS (INDONESIAN)documented in this encounter Medications at Time of Discharge Medication Sig Dispensed Refills Start Date End Date jtpvpde-iecvjbvcxfhne-p Take 2 tablets by 0 affeine (EXCEDRIN mouth every 8 hours as MIGRAINE) 250-250-65 MG needed per tablet GABAPENTIN PO Take 600 mg by mouth 3 0 times daily VITAMIN D, Take 2,000 Units by 0 CHOLECALCIFEROL, PO mouth daily. Levothyroxine Sodium Take 175 mcg by mouth 0 11/15/2018 (SYNTHROID PO) daily. SUMAtriptan Succinate Inject 6 mg 0 Refill (IMITREX Subcutaneous once. May STATDOSE REFILL) 6 repeat in 1 hr as MG/0.5ML SOLN needed, do not exceed 2 doses per 24hrs documented as of this encounter Progress Notes Moni Winslow RN - 01/06/2018 3:28 PM CDT OBSERVATION patient END time: 1500 Nilda Cuevas PA-C - 01/06/2018 3:00 PM CDT I called patient regarding her Zio patch results. Since discharge she has had one episode of lightheadedness that resolved when she lied down. She said she accidentally pressed the button at least twice. She states both her father and sister have hx of pacemaker with defibrillator. Her Zio patch results showed 2 episodes of VT with the longest episode being 13 beats. She also had two episodes of SVT. I called her PCP, Dr. Perkins and faxed him results. I also instructed patient to call PCP and makeappt. Curt Erazo - 01/06/2018 2:24 PM CDT Placed a 14 day Zio Patch Monitor. documented in this encounter H&P Notes Keyur Braga MD - 12/29/2017 11:00 PM CST Chief complaint Transient lightheadedness then brief loss of consciousness and the second episode of lightheadednessand hypotension with the triage ER nurse Primary Care [facility] History of present illness Richar Culver is a 53-year-old female with history of chronic abdominal pain, prior pancreatitis, migraine headaches, prior increased use of pain medications with withdrawal 2012 and who presents following an episode of lightheadedness with transient loss of consciousness and a second episode of hy potension and lightheadedness in the ER triage. She had no prior significant symptoms and was with family celebrating her birthday and had just finished eating pizza. They went to give her grandchild ababarry, she was sitting on the toilet watching them, she began to feel lightheaded. Her daughter noticed the change and that she was diaphoretic and pale and was beginning to sway backwards and they helped guide her to the floor. She was able to interact and and felt better. After waiting 15 minutes, they helped her walk to the car, on route, she had appropriate responses but was not her usual talkative self. After walking to check in at triage,she again felt lightheaded and the blood pressure was veto ured at 70 systolic. Twelve-lead EKG was completely normal,repeat blood pressures 126/80,heart rate 90,O2 sats on room air 96%. Patient had not had any new medications and had had an adequate intake and no pain. She has never had any fainting spells before. Orthostatic blood pressure changes were checked without significant drops, heart rate was 112 sinus tach. Past medical history 1. Acute pancreatitis 2012 and diagnosis of pancreatic divisum 2 recurrent migraines 3 gastroesophageal reflux and dyspepsia 4 hypothyroidism 5 depression 6 cholecystectomy 7 excessive pain medication use 2012 8 cervical disc disease 2011 with discectomy and fusion 9 right ureter stone and stent 2012 10 obesity Review of systems She states that she is permanently disabled right has no shortness of breath or chest discomfort with her usual activities, no claudication no leg swelling no rapid or irregular heart rate no prolongedstanding, No nausea vomiting diarrhea or fever otherwise negative per 10 system review Social history She is disabled and is very involved with her family and extended family no smoking limited alcohol intake Family history Brother had leukemia in childhood Another brother had diabetes Father stroke and chronic lung disease Physical exam Interactive and conversant and feels normal A blood pressure 120/58 heart rate 110 sitting 118/50 heart rate 100 lying 130/68 heart rate 116 standing HEENT exam is normal mucous membranes moist Jugular venous pressures normal carotid upstroke and volume are normal Lungs normal respiratory rate and effort. Lungs clear bilaterally no wheezing or rales CV normal heart sounds no murmur Abdomen obese no tenderness no hepatosplenomegaly voiding without difficulty no dysuria no flank pain extremities equal symmetrical pulses throughout and no edema Skin is without lesions or rashes neurologic no focal weakness or sensory deficits Psychologically calm Results Sodium 138 potassium 4.3 bicarb 28 creatinine 0.85 liver function tests are normal TSH is up at 16.4to glucose 116 white count 12.8 hemoglobin 13.4 platelets 256 urinalysis 15 white cells RBC 8 EKG normal sinus rhythm no ischemic changes Head CT normal Impression Eduard is a 53-year-old female with prior episode of acute pancreatitis 2013 pancreatic divisum, migraine headaches, hypothyroidism and who presents following transient loss of consciousness with preceding lightheadedness. The symptoms occurred after eating dinner and then sitting on the toilet, watching her grandchild getting a bath. Her symptoms are consistent with fainting and neurocardiogenic syncope. She has no known heart disease and no symptoms consistent with ischemia or heart failure and has a normal EKG and exam and likely has normal heart function Plan 1 Admit under observational stay status post syncope 2 telemetry monitoring baseline EKG is normal 3 echocardiogram to confirm normal left and right ventricular function 4 education on how to respond to warning symptoms to try to avoid actual syncope and injury. 5 I did explain to her the mechanism of vasovagal syncope or neurocardiogenic syncope that there isnothing wrong with the heart or blood pressure or nervous system,but that the control mechanisms to always maintain good cerebral blood flow failed transiently leading to fainting. 6 Her TSH is high because she forgets to take her Synthroid. She does not have any symptoms of hypothyroidism but I did take this opportunity to remind her to be consistent in taking her daily Synthroid. documented in this encounter ED Notes Malorie Aguayo, RN - 2018 11:09 PM CDT MD at bedside. Olinda Acosta RN - 2018 10:40 PM CDT [facility] ED Nurse Handoff Report Richar Culver is a 53 year old female ED Chief complaint: No chief complaint on file. . ED Diagnosis: Final diagnoses: Syncope and collapse Urinary tract infection without hematuria, site unspecified Allergies: No Known Allergies Code Status: Full Code Activity level - Baseline/Home: Independent. Activity Level - Current: Stand with Assist. Lift room needed: No. Bariatric: No Weigher And Charger Needed: No Isolation: No. Infection: Not Applicable. Vital Signs: Vitals: 01/05/18 2130 01/05/18 2145 01/05/18 2200 01/05/18 2215 BP: 109/79 105/50 118/85 114/88 Resp: 14 10 05 22 SpO2: 97% 98% 96% 96% Cardiac Rhythm: , Cardiac Cardiac Rhythm: Normal sinus rhythm Pain level: Patient confused: No. Patient Falls Risk: Yes. Elimination Status: Has voided Patient Report - Initial Complaint: Pt reportedly had syncopal episode at home where she was slowly lowered to the ground by family. Pt was sitting on the toilet helping give her granddaughter a bath. Daughter helped pt to ground because she felt faint. Pt brought into ED for eval. Pt reportedly had syncopal episode in lobby during triage while in wheel chair. Pt became diaphoretic. Triage nurse states systolic 70s. Pt rushed back to room where MD and nurses ready. BG wnl, EKG SR. BP stable. IV started. ABC intact. A&O x4. Focused Assessment: Pt initially pain and diaphoretic. Denies CP, SOB, abd pain, n/v/d, dysuria, GALINDO or visual changes. Tests Performed: ekg, labs, ua, head ct. Abnormal Results: TSH 16, uti. Treatments provided: keflex PO Family Comments: at bedside. (It's pt's Birthday!!) OBS brochure/video discussed/provided to patient: N/A ED Medications: Medications cephALEXin (KEFLEX) capsule 500 mg (500 mg Oral Given 01/05/18 1693) Drips infusing: No For the majority of the shift, the patient's behavior Green. Interventions performed were n/a. Severe Sepsis OR Septic Shock Diagnosis Present: No ED Nurse Name/Phone Number: Courtney Westbrook, 10:40 PM RECEIVING UNIT ED HANDOFF REVIEW Above ED Nurse Handoff Report was reviewed: Yes Reviewed by: Olinda Acosta on 2018 at 11:28 PM Carla Garcia RN - 2018 8:40 PM CDT Pt reportedly had syncopal episode at home where she was slowly lowered to the ground by family. Pt was sitting on the toilet helping give her granddaughter a bath. Daughter helped pt to ground becauseshe felt faint. Pt brought into ED for eval. Pt reportedly had syncopal episode in lobby during triage while in wheel chair. Pt became diaphoretic. Triage nurse states systolic 70s. Pt rushed back to room where MD and nurses ready. BG wnl, EKG SR. BP stable. IV started. ABC intact. A&O x4. Jose M Cleaning RN - 2018 8:02 PM CDT Pt passed out in w/c no seizurelike act noted. Pt pale and sweaty. When to room pt started waking up. Chinmay Calvin MD - 2018 7:57 PM CDT History Chief Complaint: Syncope HPI RicharJosy Culver is a 53 year old female with a history of migraines and pancreatitis who presents to the ED for evaluation of syncope. The patient reports that she was sitting with her family celebrating her birthday, when her family noticed she was not acting normally. She was breathing heavily and became diaphoretic. She lowered herself to the floor, and had a syncopal episode. No seizure activitywas noted. She was brought to the ED by her family for evaluation, and had another syncopal episode in the waiting room. She denies any chest pain, shortness of breath, headaches, abdominal pain, nausea, or recent illness. Additionally, she denies any recent medication changes, alcohol use, or drug use. She denies any pain with breathing. She has never had a syncopal episode in the past and has no history of seizures. She notes that her sister and her father both have pacemakers, but she has no heart problems. She denies any significant prodromal symptoms. Allergies: NKDA Medications: Fioricet Tramadol Excedrin Paxil Levothyroxine Estrogen Imitrex Past Medical History: Migraines Pancreatitis Thyroid disease Narcotic withdrawal Past Surgical History: Cholecystectomy Hysterectomy EGD Cervical spine fusion Family History: Father: CAD, lung fibrosis Brother: diabetes Sister: diabetes Social History: Marital Status: [2] Negative for tobacco use. Alcohol use: 3-4 monthly Review of Systems Constitutional: Positive for diaphoresis. Respiratory: Negative for shortness of breath. Cardiovascular: Negative for chest pain. Gastrointestinal: Negative for abdominal pain and nausea. Neurological: Positive for syncope. Negative for seizures and headaches. All other systems reviewed and are negative. Physical Exam Patient Vitals for the past 24 hrs: BP Heart Rate Resp SpO2 01/05/18 2030 - 86 13 97 % 01/05/183 - 92 14 96 % 01/05/182019 - 16 97 % 01/05/182018 126/85 90 25 97 % 01/05/182015 - 12 - 01/05/182008 114/78 - - 96 % Physical Exam General: Diaphoretic. Nontoxic. Awake and alert. Head: Scalp, face, and head appear normal, atraumatic. Eyes: Pupils are equal, round, and reactive to light, EOMI Conjunctivae non-injected and sclerae white ENT: The external nose is normal Pinnae are normal The oropharynx is normal, mucous membranes moist Uvula is in the midline Neck: Normal range of motion There is no rigidity noted Trachea is in the midline CV: Regular rate and rhythm Normal S1/S2, no S3/S4 No murmur or rub Resp: Lungs are clear and equal bilaterally There is no tachypnea No increased work of breathing No rales, wheezing, or rhonchi GI: Abdomen is soft, no rigidity or guarding No distension, or mass No tenderness or rebound tenderness MS: Normal muscular tone Symmetric motor strength No lower extremity edema Skin: No rash or acute skin lesions noted Neuro: A&Ox3, GCS 15 CN II - XII intact Speech clear, fluent, and normal Strength 5/5 and symmetric in bilateral upper and lower extremities. No pronator drift, no leg drift. SILT throughout. patellar reflexes 2+ and symmetric, no ankle clonus FTN testing normal. No tremor. No meningismus Psych: Normal affect. Appropriate interactions. Emergency Department Course ECG: Indication: Syncope Time: 2012 Vent. Rate 82 bpm. MO interval 142. QRS duration 76. QT/QTc 396/462. P-R-T axis 72 58 43. Normal sinus rhythm. Normal ECG. Read time: 2019 Imaging: CT Head without contrast: Normal Head CT, as per radiology. Laboratory: CBC: WBC: 12.8 (H), HGB: 13.4, PLT: 356 CMP: Glucose 116 (H), o/w WNL (Creatinine: 0.85) D dimer: 0.4 PTT: 23 INR: 0.89 Phosphorous: 4.2 Magnesium: 2.3 TSH with free T4: 16.42 (H) T4 free: 0.80 2111 Troponin: <0.015 2200 Glucose by meter: 106 (H) Lactic acid: pending on admission UA with Microscopic: blood small (A), leukocyte esterase moderate (A), RBC 8 (H), WBC 15 (H), bacteria few (A), mucous present (A), o/w WNL Urine culture: pending Drug abuse screen: pending Alcohol ethyl: pending Interventions: 2236 Keflex 500 mg PO Emergency Department Course: Nursing notes and vitals reviewed. (2014) I performed an exam of the patient as documented above. IV inserted. Medicine administered as documented above. Blood drawn. This was sent to the lab for further testing, results above. The patient provided a urine sample here in the emergency department. This was sent for laboratory testing, findings above. The patient was sent for a Head CT while in the emergency department, findings above. EKG obtained in the ED, see results above. (2225) I rechecked the patient and discussed the results of her workup thus far. (6281) I consulted with Dr. Braga of the hospitalist services. They are in agreement to accept the patient for admission. Findings and plan explained to the Patient who consents to admission. Discussed the patient with , who will admit the patient to an observation bed for further monitoring, evaluation, and treatment. Impression & Plan Medical Decision Making: Richar Culver is a 53 year old female who presents with a history and clinical exam consistent with syncope. I considered a broad differential for their syncope today including cardiac arrythmia, ACS, aortic stenosis or other acute valvular dysfunction, HOCM, PE, orthostatic hypotension, drugs, medication side effect, situational, carotid hypersensitivity, seizure, TIA, stroke, cerebral insufficiency, vasovagal, etc. Patient has no signs at this point of an acute stroke, PE, dissection, acute coronary syndrome. CT head and EKG unremarkable. Urinalysis was significant for a slight pyuria, so Keflex was given. Remainder of ED workup unrevealing. Given lack of a clear etiology, and multiple syncopal events, risk factors would admit patient for further evaluation on telemetry to the medicine team.The patient remained stable during her ED course. Diagnosis: ICD-10-CM 1. Syncope and collapse R55 2. Urinary tract infection without hematuria, site unspecified N39.0 Disposition: Admitted to Dr. Braga Scribe Disclosure: I, Moni Ellis, am serving as a scribe on 2018 at 8:08 PM to personally document services performed by No att. providers found based on my observations and the provider's statements to me. Moni Ellis 2018 [facility] EMERGENCY DEPARTMENT Chinmay Calvin MD 01/06/18 0104 documented in this encounter Miscellaneous Notes Plan of Care - Moni Winslow RN - 01/06/2018 2:50 PM CDT Problem: Patient Care Overview Goal: Plan of Care/Patient Progress Review Outcome: Adequate for Discharge Date Met: 01/06/18 PRIMARY DIAGNOSIS: SYNCOPE/TIA OUTPATIENT/OBSERVATION GOALS TO BE MET BEFORE DISCHARGE: 1. Orthostatic performed: Yes: Lying Orthostatic BP: 117/50 Sitting Orthostatic BP: 121/58 Standing Orthostatic BP: 131/68 2. Diagnostic testing complete & at baseline neurologic testing: Yes 3. Cleared by consultants (if involved): Yes 4. Interpretation of cardiac rhythm per senior technical editor: SR 5. Tolerating adequate PO diet and medications: Yes 6. Return to near baseline physical activity or neurologic status: Yes Pt is asking to go home. Ziopatch has been reviewed with Pt., applied. Pt to be called if UC comes back positive. Reject Opener Nurse Safe discharge environment identified: Yes Barriers to discharge: No Entered by: Moni Winslow 01/06/2018 2:49 PM Please review provider order for any additional goals. Nurse to notify provider when observation goals have been met and patient is ready for discharge. Plan of Care - Moni Winslow RN - 01/06/2018 11:15 AM CDT Problem: Patient Care Overview Goal: Plan of Care/Patient Progress Review Outcome: No Change PRIMARY DIAGNOSIS: SYNCOPE/TIA OUTPATIENT/OBSERVATION GOALS TO BE MET BEFORE DISCHARGE: 1. Orthostatic performed: Yes: Lying Orthostatic BP: 117/50 Sitting Orthostatic BP: 121/58 Standing Orthostatic BP: 131/68 2. Diagnostic testing complete & at baseline neurologic testing: Yes 3. Cleared by consultants (if involved): N/A 4. Interpretation of cardiac rhythm per senior technical editor: SR 5. Tolerating adequate PO diet and medications: Yes 6. Return to near baseline physical activity or neurologic status: Yes Pt continues to c/o headache to mid front of head. History of migraines, history of weaning off oxycodone as well. Pt given several migraine options. No sensitivity to light etc, just pain level of 9/10. Gave IV benadryl and toradol. Pt is up independently with stable vital signs, no lightheadedness. Voiding, eating without difficulty. Reject Opener Nurse Safe discharge environment identified: Yes Barriers to discharge: No Entered by: Moni Winslow 01/06/2018 11:12 AM Please review provider order for any additional goals. Nurse to notify provider when observation goals have been met and patient is ready for discharge. Plan of Care - Olinda Acosta RN - 01/06/2018 4:00 AM CDT Problem: Patient Care Overview Goal: Plan of Care/Patient Progress Review Outcome: Improving PRIMARY DIAGNOSIS: SYNCOPE/TIA OUTPATIENT/OBSERVATION GOALS TO BE MET BEFORE DISCHARGE: 1. Orthostatic performed: Yes: Lying Orthostatic BP: 117/50 Sitting Orthostatic BP: 121/58 Standing Orthostatic BP: 131/68 ?? 2. Diagnostic testing complete & at baseline neurologic testing: No ?? 3. Cleared by consultants (if involved): No ?? 4. Interpretation of cardiac rhythm per senior technical editor: SR/ST 97-105 ?? 5. Tolerating adequate PO diet and medications: Yes ?? 6. Return to near baseline physical activity or neurologic status: stand by assist ?? Reject Opener Nurse Safe discharge environment identified: Yes Barriers to discharge: No Entered by: Olinda Acosta 01/06/2018 1:21 AM Please review provider order for any additional goals. Nurse to notify provider when observation goals have been met and patient is ready for discharge. ? 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 Patient has been oriented to the observation room, bathroom and call light is in place. Discussed discharge goals and expectations with patient/family. Plan of Care - Olinda Acosta RN - 01/06/2018 12:00 AM CDT Problem: Patient Care Overview Goal: Plan of Care/Patient Progress Review Outcome: Improving PRIMARY DIAGNOSIS: SYNCOPE/TIA OUTPATIENT/OBSERVATION GOALS TO BE MET BEFORE DISCHARGE: 1. Orthostatic performed: Yes: Lying Orthostatic BP: 117/50 Sitting Orthostatic BP: 121/58 Standing Orthostatic BP: 131/68 2. Diagnostic testing complete & at baseline neurologic testing: No 3. Cleared by consultants (if involved): No 4. Interpretation of cardiac rhythm per senior technical editor: SR/ST 97-105 5. Tolerating adequate PO diet and medications: Yes 6. Return to near baseline physical activity or neurologic status: stand by assist Reject Opener Nurse Safe discharge environment identified: Yes Barriers to discharge: No Entered by: Olinda Acosta 01/06/2018 1:21 AM Please review provider order for any additional goals. Nurse to notify provider when observation goals have been met and patient is ready for discharge. Pharmacy-Admission Medication History - Sabrina Kelly RPH - 2018 10:46 PM CDT Admission medication history interview status for this patient is complete. See [facility] admission navigator for allergy information, prior to admission medications and immunization status. 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 No Prior to Admission medications Medication Sig Last Dose Taking? Auth Provider GABAPENTIN PO Take 600 mg by mouth 3 times daily 2018 at 1200 Yes Reported, Patient nzjcqcy-pnhuqhmliovnw-tquhadei (EXCEDRIN MIGRAINE) 250-250-65 MG per tablet Take 2 tablets by mouth every 8 hours as needed Yes Unknown, Entered By History Levothyroxine Sodium (SYNTHROID PO) Take 175 mcg by mouth daily. 2018 at AM Yes Reported, Patient VITAMIN D, CHOLECALCIFEROL, PO Take 2,000 Units by mouth daily. 2018 at AM Yes Reported, Patient SUMAtriptan Succinate Refill (IMITREX STATDOSE REFILL) 6 MG/0.5ML SOLN Inject 6 mg Subcutaneous once. May repeat in 1 hr as needed, do not exceed 2 doses per 24hrs Past Week at Unknown time Yes Unknown, Entered By History documented in this encounter Plan of Treatment Not on filedocumented as of this encounter Procedures Procedure Name Priority Date/Time Associated Comments Diagnosis ZIO PATCH HOLTER Routine 01/12/2018 Results for this procedure are i n the results section. ECHO COMPLETE Routine 01/06/2018 8:47 AM Results for this CDT procedure are i n the results section. UA MACROSCOPIC WITH STAT 2018 9:12 PM Re sults for this REFLEX TO MICRO AND CDT procedur e are in CULTURE the results section. DRUG ABUSE SCREEN 77 STAT 2018 9:12 PM Syncope and R esults for this URINE (FL, RH, SH) CDT collapse procedure are in the results section. URINE CULTURE Routine 2018 9:12 PM Syncope and Results for this CDT collapse procedure are i n the results section. CT HEAD W/O CONTRAST STAT 2018 8:55 PM R esults for this CDT procedure are i n the results section. EKG 12-LEAD, TRACING STAT 2018 8:13 PM R esults for this ONLY CDT procedure are i n the results section. GLUCOSE BY METER Routine 2018 8:12 PM Resul ts for this CDT procedure are i n the results section. CBC WITH PLATELETS & STAT 2018 8:12 PM R esults for this DIFFERENTIAL CDT procedure are i n the results section. TSH WITH FREE T4 REFLEX STAT 2018 8:12 PM Results for this CDT procedure are i n the results section. TROPONIN I STAT 2018 8:12 PM Results f or this CDT procedure are i n the results section. T4 FREE Routine 2018 8:12 PM Results f or this CDT procedure are i n the results section. INR STAT 2018 8:12 PM Results f or this CDT procedure are i n the results section. PHOSPHORUS STAT 2018 8:12 PM Results f or this CDT procedure are i n the results section. PARTIAL THROMBOPLASTIN STAT 2018 8:12 PM Results for this TIME CDT procedure are i n the results section. MAGNESIUM STAT 2018 8:12 PM Results f or this CDT procedure are i n the results section. D DIMER QUANTITATIVE STAT 2018 8:12 PM R esults for this CDT procedure are i n the results section. COMPREHENSIVE METABOLIC STAT 2018 8:12 PM Results for this PANEL CDT procedure are i n the results section. documented in this encounter Results Zio Patch Holter (01/12/2018) Narrative [facility] - 01/12/2018 [facility] OBSERVATION DEPARTMENT [address] [facility] [id number] 01/06/2018 Patient: ??Richar Culver Chart: [id number] : ??1965 Age: ??53 year old Sex: ??female Procedure: ??ZioPatch Monitor. E/M Engineer performing hook-up: ??Curt Erazo Nilda Cuevas PA-C CV CARDIAC SERVICES ORDERA BLES Performing Organization Address City/State/ZIP Code Phon e Number [facility] Echocardiogram Complete (01/06/2018 8:47 AM CDT) Anatomical Region Laterality Modality Echocardiography Specimen (Source) Anatomical Collection Method Collection Time Re ceived Time Location / / Volume Laterality 01/06/2018 8:02 AM CDT Narrative 01/06/2018 1:39 PM CDT [id number]^OMI^KEYUR^ESAU [facility] [address] [place] [address] Name: RICHAR CULVER : 1965 Study Date: 01/06/2018 08:02 AM Age: 53 yrs Gender: Female Patient Location: [facility] Reason For Study: Syncope Ordering Physician: KEYUR BRAGA Referring Physician: Jeremie Perkins Performed By: Virgen Durán RDCS BSA: 2.2 m2 Height: 67 in Weight: 242 lb HR: 79 BP: 117/50 mmHg __ Procedure Complete Portable Echo Adult. __ Interpretation Summary The left ventricle is normal in size. There is normal left ventricular wall th ickness. The visual ejection fraction is estimate d at 55-60%. Grade I or early diastolic dysfunction. No regional wall motion abnormalities no fe. The right ventricle is normal in structu re, function and size. The left atrium is mildly dilated. The mitral valve leaflets are mildly thi ckened. There is mild (1+) mitral regurgitation. There is mild trileaflet aortic sclerosi s. There is trace to mild aortic regurgitat ion. Sinus rhythm was noted. The study was technically adequate. Ther e is no comparison study available. __ Left Ventricle The left ventricle is normal in size. Th ere is normal left ventricular wall thickness. Proximal septal thickening is noted. The visual ejection fraction is estimated at 55-60%. Left ventricular systolic function is normal. Grade I or early diastolic dysfunction. No regio nal wall motion abnormalities noted. There is no thrombus seen in the left ve ntricle. Right Ventricle The right ventricle is normal in structu re, function and size. There is normal right ventricular wall thickness. A mode rator band is seen in the right ventricle. Atria The left atrium is mildly dilated. Right atrial size is normal. Intact atrial septum. Mitral Valve The mitral valve leaflets are mildly thi ckened. There is mild (1+) mitral regurgitation. Tricuspid Valve The tricuspid valve is not well visualiz ed, but is grossly normal. There is trace tricuspid regurgitation. Right parul tricular systolic pressure could not be approximated due to inadequate tricus pid regurgitation. Aortic Valve There is mild trileaflet aortic sclerosi s. There is trace to mild aortic regurgitation. Pulmonic Valve There is trace pulmonic valvular regurgi tation. Vessels The aortic root is normal size. Normal s ize ascending aorta. The inferior vena cava is not dilated. Pulmonary arteries not well visualized. Pericardium The pericardium appears normal. There is no pericardial effusion. Rhythm Sinus rhythm was noted. __ MMode/2D Measurements & Calculations IVSd: 0.98 cm LVIDd: 4.3 cm LVIDs: 2.8 cm LVPWd: 0.78 cm IVC diam: 1.4 cm FS: 35.0 % LV mass(C)d: 117.9 grams LV mass(C)dI: 53.8 grams/m2 Ao root diam: 3.3 cm asc Aorta Diam: 3.2 cm LA volume (AL/bp): 79.2 cm3 LA Volume Indexed (AL/bp): 36.1 ml/m2 RWT: 0.37 TAPSE: 2.3 cm Doppler Measurements & Calculations MV E max melecio: 69.4 cm/sec MV A max melecio: 76.1 cm/sec MV E/A: 0.91 MV dec slope: 242.8 cm/sec2 MV dec time: 0.29 sec AI P1/2t: 514.2 msec E/E' av.3 Lateral E/e': 6.2 Medial E/e': 6.4 __ Report approved by: Carlton Grant 01/06/2018 01:39 PM Procedure Note Jay Natarajan MD - 01/06/2018F ormatting of this note might be different from the original. [id number]^OMI^KEYUR^ESAU [facility] [address] [place] [id number] Name: RICHAR CULVER : 1965 Study Date: 01/06/2018 08:02 AM Age: 53 yrs Gender: Female Patient Location: [facility] Reason For Study: Syncope Ordering Physician: KEYUR BRAGA Referring Physician: Jeremie Perkins Performed By: Virgen Durán RDCS BSA: 2.2 m2 Height: 67 in Weight: 242 lb HR: 79 BP: 117/50 mmHg __ Procedure Complete Portable Echo Adult. __ Interpretation Summary The left ventricle is normal in size. There is normal left ventricular wall th ickness. The visual ejection fraction is estimate d at 55-60%. Grade I or early diastolic dysfunction. No regional wall motion abnormalities no fe. The right ventricle is normal in structu re, function and size. The left atrium is mildly dilated. The mitral valve leaflets are mildly thi ckened. There is mild (1+) mitral regurgitation. There is mild trileaflet aortic sclerosi s. There is trace to mild aortic regurgitat ion. Sinus rhythm was noted. The study was technically adequate. Ther e is no comparison study available. __ Left Ventricle The left ventricle is normal in size. Th ere is normal left ventricular wall thickness. Proximal septal thickening is noted. The visual ejection fraction is estimated at 55-60%. Left ventricular systolic function is normal. Grade I or early diastolic dysfunction. No regio nal wall motion abnormalities noted. There is no thrombus seen in the left ve ntricle. Right Ventricle The right ventricle is normal in structu re, function and size. There is normal right ventricular wall thickness. A mode rator band is seen in the right ventricle. Atria The left atrium is mildly dilated. Right atrial size is normal. Intact atrial septum. Mitral Valve The mitral valve leaflets are mildly thi ckened. There is mild (1+) mitral regurgitation. Tricuspid Valve The tricuspid valve is not well visualiz ed, but is grossly normal. There is trace tricuspid regurgitation. Right parul tricular systolic pressure could not be approximated due to inadequate tricus pid regurgitation. Aortic Valve There is mild trileaflet aortic sclerosi s. There is trace to mild aortic regurgitation. Pulmonic Valve There is trace pulmonic valvular regurgi tation. Vessels The aortic root is normal size. Normal s ize ascending aorta. The inferior vena cava is not dilated. Pulmonary arteries not well visualized. Pericardium The pericardium appears normal. There is no pericardial effusion. Rhythm Sinus rhythm was noted. __ MMode/2D Measurements & Calculations IVSd: 0.98 cm LVIDd: 4.3 cm LVIDs: 2.8 cm LVPWd: 0.78 cm IVC diam: 1.4 cm FS: 35.0 % LV mass(C)d: 117.9 grams LV mass(C)dI: 53.8 grams/m2 Ao root diam: 3.3 cm asc Aorta Diam: 3.2 cm LA volume (AL/bp): 79.2 cm3 LA Volume Indexed (AL/bp): 36.1 ml/m2 RWT: 0.37 TAPSE: 2.3 cm Doppler Measurements & Calculations MV E max melecio: 69.4 cm/sec MV A max melecio: 76.1 cm/sec MV E/A: 0.91 MV dec slope: 242.8 cm/sec2 MV dec time: 0.29 sec AI P1/2t: 514.2 msec E/E' av.3 Lateral E/e': 6.2 Medial E/e': 6.4 __ Report approved by: Carlton Grant 01/06/2018 01:39 PM Keyur Braga MD CV ECHO ORDERABLES (ABNORMAL) Drug abuse screen 77 urine (FL, RH, SH) (2018 9:12 PM CDT) [facility] Method Time Signature Amphetamine Qual Negative NEG^Negati 2018 [place] Urine ve 11:48 PM [facility] Comment: Cutoff for a negative amphetami ne is 500 ng/mL or less. Barbiturates Qual Negative NEG^Negative 2018 11:48 PM [facility] Urine [facility] Comment: Cutoff for a negative barbitura te is 200 ng/mL or less. Benzodiazepine Qual Negative NEG^Negative 2018 11:48 PM [facility] Urine [facility]T [facility]OSPITAL Comment: Cutoff for a negative benzodiaz epine is 200 ng/mL or less. Cannabinoids Qual Positive (A) NEG^Negative 2018 11:48 [facility] Urine PM CDT HOSPITAL Comment: Cutoff for a positive cannabinoid is gre ater than 50 ng/mL. This is an unconfirmed screening result to be used for medical purposes only. Cocaine Qual Urine Negative NEG^Negative 2018 11:48 P [facility] Comment: Cutoff for a negative cocaine i s 300 ng/mL or less. Opiates Qualitative Negative NEG^Negative 2018 11:48 PM [facility] Urine T HOSPITAL Comment: Cutoff for a negative opiate is 300 ng/mL or less. PCP Qual Urine Negative NEG^Negative 2018 11:48 PM CD T [facility] Comment: Cutoff for a negative PCP is 25 ng/mL or less. Specimen Anatomical Collection Method Collection Time Receive d Time (Source) Location / / Volume Laterality Urine specimen URINE SPECIMEN / 2018 9:12 PM (specimen) Unknown CDT 11:25 PM CDT Chinmay Calvin MD LAB - URINE ORDERABLES Performing Organization Address City/State/ZIP Code Phon e Number [facility] [address] [phone] [facility] [address] [phone] Urine Culture Aerobic Bacterial (2018 9:12 PM CDT) Component Value Ref Test Analysis Performed At [facility] Range Method Time Signature Specimen Midstream Urine INFECTIOUS Description DISEASE DIAGNOSTIC LABORATORY Special Specimen received 01/06/2018 [facility] in preservative 1:03 AM CDT [facility] Culture Micro <10,000 colonies/mL 01/07/2018 INFEC TIOUS urogenital kacey 4:55 AM CDT DISEASE Susceptibility testing not routinely done DIAGNOSTIC LABORATORY Specimen (Source) Anatomical Collection Method Collection Time Re ceived Time Location / / Volume Laterality Examination of 2018 9:12 2018 9:59 midstream urine PM CDT PM CDT specimen (procedure) Chinmay Calvin MD LAB - MICRO GENERAL ORDERABL ES Performing Organization Address City/State/ZIP Code Phon e Number INFECTIOUS DISEASES [address] [place] [address] DIAGNOSTIC LABORATORY, [facility] INFECTIOUS DISEASE [address] [place] [address], [facility] DIAGNOSTIC LABORATORY [address] [address], [facility] (ABNORMAL) UA reflex to Microscopic and Culture (2018 9:12 PM CDT) [facility] Method Time Signature Color Urine Yellow 2018 [place] 9:31 PM [facility] Appearance Urine Clear 2018 [place] 9:31 PM [facility] Glucose Urine Negative NEG^Negat 2018 [facility] brandie mg/dL 9:31 PM [facility] Bilirubin Urine Negative NEG^Negat 2018 [place] brandie 9:31 PM [facility] Ketones Urine Negative NEG^Negat 2018 [place] brandie mg/dL 9:31 PM [facility] Specific [place] 1.011 1.003 - 2018 [place] Urine 1.035 9:31 PM [facility] Blood Urine Small (A) NEG^Negat 2018 [place] brandie 9:31 PM [facility] pH Urine 5.0 5.0 - 7.0 2018 [place] pH 9:31 PM [facility] Protein Albumin Negative NEG^Negat 2018 [place] Urine brandie mg/dL 9:31 PM [facility] Urobilinogen 0.0 0.0 - 2.0 2018 [facility] mg/dL mg/dL 9:31 PM [facility] Nitrite Urine Negative NEG^Negat 2018 [place] brandie 9:31 PM [facility] Leukocyte Moderate (A) NEG^Negat 2018 [facility] Esterase Urine brandie 9:31 PM [facility] Source Midstream 2018 [place] Urine 9:22 PM [facility] RBC Urine 8 (H) 0 - 2 2018 [place] /HPF 9:38 PM [facility] WBC Urine 15 (H) 0 - 5 2018 [place] /HPF 9:38 PM [facility] Bacteria Urine Few (A) NEG^Negat 2018 [place] brandie /HPF 9:38 PM [facility] Squamous <1 0 - 1 2018 [place] Epithelial /HPF /HPF 9:38 PM [facility] Mucous Urine Present (A) NEG^Negat 2018 [place] brandie /LPF 9:38 PM [facility] Specimen (Source) Anatomical Collection Method Collection Time Re ceived Time Location / / Volume Laterality Examination of MID-STREAM URINE 2018 9:12 2017 9:21 midstream urine SPECIMEN / PM CDT PM CDT specimen Unknown (procedure) Chinmay Calvin MD LAB - URINE ORDERABLES Performing Organization Address City/State/ZIP Code Phon e Number [place] [address] [address] [facility] [address] [place], [place] [address] [place] [address] CT Head w/o Contrast (2018 8:55 PM CDT) Anatomical Region Laterality Modality Head, SUBRAD CT NEURO, SUBRAD CT NEURO, UMP CT NEURO, Computed Tomography RAD CT Specimen (Source) Anatomical Location Collection Method / Collectio n Time Received Time / Laterality Volume Impressions 2018 10:58 PM CDT IMPRESSION: ??Normal head CT. Radiation dose for this scan was reduced using automated exposure control, adjustment of the mA and/or kV according to patient size, or iterative reconstruction technique LITA CANALES MD Narrative 2018 10:[address] OF THE HEAD WITHOUT CONTRAST 2018 8:55 PM COMPARISON: None. HISTORY: ??Syncope, fall. TECHNIQUE: Axial CT images of the head f rom the skull base to the vertex were acquired without IV contrast . FINDINGS: The ventricles and basal ciste rns are within normal limits in configuration. There is no midline sh ift. There are no extra-axial fluid collections. ??Lobato-white differen tiation is well maintained. No intracranial hemorrhage, mass or rece nt infarct. The visualized paranasal sinuses are wel l-aerated. There is no mastoiditis. There are no fractures of t he visualized bones. Procedure Note Lita Canales MD - 2018Forma tting of this note might be different from the original. CT OF THE HEAD WITHOUT CONTRAST 8 8:55 PM COMPARISON: None. HISTORY: Syncope, fall. TECHNIQUE: Axial CT images of the head f rom the skull base to the vertex were acquired without IV contrast . FINDINGS: The ventricles and basal ciste rns are within normal limits in configuration. There is no midline sh ift. There are no extra-axial fluid collections. Lobato-white differenti ation is well maintained. No intracranial hemorrhage, mass or rece nt infarct. The visualized paranasal sinuses are wel l-aerated. There is no mastoiditis. There are no fractures of t he visualized bones. IMPRESSION: Normal head CT. Radiation dose for this scan was reduced using automated exposure control, adjustment of the mA and/or kV according to patient size, or iterative reconstruction technique LITA CANALES MD Chinmay Calvin MD IMG CT ORDERABLES EKG 12 lead (2018 8:13 PM CDT) [facility] gist Method Time Signature Interpretation ECG Click View RADIOLOGY Image link RESULTS to view waveform and result Specimen (Source) Anatomical Collection Method Collection Time Re ceived Time Location / / Volume Laterality 2018 8:13 PM CDT Chinmay Calvin MD ECG ORDERABLES Performing Organization Address City/State/ZIP Code Phon e Number RADIOLOGY RESULTS (ABNORMAL) Glucose by meter (2018 8:12 PM CDT) P athologist Signature Glucose 106 (H) 70 - 99 2018 POINT OF CARE mg/dL 10:00 PM CDT TEST, GLUCOSE Specimen Anatomical Collection Method Collection Time Receive d Time (Source) Location / / Volume Laterality 2018 8:12 PM 8 CDT 10:00 PM CDT Chinmay Calvin MD LAB - BEAKER POCT Performing Organization Address City/State/ZIP Code Phon e Number [facility] POINT OF CARE TEST, GLUCOSE POINT OF CARE TEST, GLUCOSE T4 free (2018 8:12 PM CDT) athologist Signature T4 Free 0.80 0.76 - 1.46 2018 [facility] ng/dL 9:53 PM CDT HOSPITAL Specimen Anatomical Collection Method Collection Time Receive d Time (Source) Location / / Volume Laterality 2018 8:12 PM 8 8:39 CDT PM CDT Chinmay Calvin MD LAB - BLOOD ORDERABLES Performing Organization Address City/State/ZIP Code Phon e Number M [facility] [address], [place] [address] [facility] [address] [place], [place] [address], [facility] [phone] Phosphorus (2018 8:12 PM CDT) P athologist Signature Phosphorus 4.2 2.5 - 4.5 2018 [facility] mg/dL 9:04 PM CDT HOSPITAL Specimen Anatomical Collection Method Collection Time Receive d Time (Source) Location / / Volume Laterality Blood specimen 2018 8:12 PM 018 8:39 (specimen) CDT PM CDT Chinmay Calvin MD LAB - BLOOD ORDERABLES Performing Organization Address City/[facility]/ZIP Code Phon e Number M [facility] [address], [place] [address] [facility] [address] [place], [place] [address], [facility] [phone] Magnesium (2018 8:12 PM CDT) P athologist Signature Magnesium 2.3 1.6 - 2.3 2018 [facility] mg/dL 9:04 PM CDT HOSPITAL Specimen Anatomical Collection Method Collection Time Receive d Time (Source) Location / / Volume Laterality Blood specimen 2018 8:12 PM 018 8:39 (specimen) CDT PM CDT Chinmay Calvin MD LAB - BLOOD ORDERABLES Performing Organization Address City/[facility]/ZIP Code Phon e Number M [facility] [address] [place], [place] [address] [facility] [address] [place], [place] [address], [facility] [phone] (ABNORMAL) TSH with free T4 reflex (2018 8:12 PM CDT) athologist [facility] TSH 16.42 (H) 0.40 - 4.00 2018 [place] mU/L 9:11 PM [facility] Specimen Anatomical Collection Method Collection Time Receive d Time (Source) Location / / Volume Laterality Blood specimen 2018 8:12 PM 018 8:39 (specimen) CDT PM CDT Chinmay Calvin MD LAB - BLOOD ORDERABLES Performing Organization Address [facility] Phon e Number [facility] [address] [place], [place] [address] [place] [address] [address] [place], [place] [address], [facility] [phone] Troponin I (2018 8:12 PM CDT) athologist [facility] Troponin I ES <0.015 0.000 - 2018 [place] 0.045 ug/L 9:11 PM [facility] Comment: The 99th percentile for upper reference range is 0.045 ug/L. ??Troponin values in the range of 0.045 - 0.120 ug/L may b e associated with risks of adverse clinical events. Specimen Anatomical Collection Method Collection Time Receive d Time (Source) Location / / Volume Laterality Blood specimen 2018 8:12 PM 018 8:39 (specimen) CDT PM CDT Chinmay Calvin MD LAB - BLOOD ORDERABLES Performing Organization Address [facility] Phon e Number M [facility] [address] [place], [place] [address] [facility] [address] [place] [address], [facility] [phone] (ABNORMAL) Comprehensive metabolic panel (2018 8:12 PM CDT) athologist [facility] Sodium 138 133 - 144 2018 [place] mmol/L 9:04 PM [facility] Potassium 4.3 3.4 - 5.3 2018 [place] mmol/L 9:04 PM [facility] Chloride 102 94 - 109 2018 [place] mmol/L 9:04 PM [facility] Carbon Dioxide 28 20 - 32 2018 [facility] mmol/L 9:04 PM [facility] Anion Gap 8 3 - 14 2018 [place] mmol/L 9:04 PM [facility] Glucose 116 (H) 70 - 99 2018 [place] mg/dL 9:04 PM [facility] Urea Nitrogen 18 7 - 30 2018 [place] mg/dL 9:04 PM [facility] Creatinine 0.85 0.52 - 2018 [place] 1.04 mg/dL 9:04 PM [facility] GFR Estimate 69 >60 2018 [facility] mL/min/1.7 9:[address] Comment: Non GFR Calc GFR Estimate If 84 >60 mL/min/1.7m2 2018 9:04 P [facility] Comment: GFR Calc Calcium 8.9 8.5 - 10.1 mg/dL 2018 9:04 PM [facility] Bilirubin Total 0.3 0.2 - 1.3 mg/dL 2018 9:04 PM [facility] Albumin 3.9 3.4 - 5.0 g/dL 2018 9:04 PM [facility] Protein Total 7.2 6.8 - 8.8 g/dL 2018 9:04 PM [facility] Alkaline Phosphatase 102 40 - 150 U/L 2018 9:04 PM [facility] ALT 33 0 - 50 U/L 2018 9:04 PM [facility] AST 22 0 - 45 U/L 2018 9:04 PM [facility] Specimen Anatomical Collection Method Collection Time Receive d Time (Source) Location / / Volume Laterality Blood specimen 2018 8:12 PM 018 8:39 (specimen) CDT PM CDT Chinmay Calvin MD LAB - BLOOD ORDERABLES Performing Organization Address City/State/ZIP Code Phon e Number M [facility] [address] [place], [place] [address] [facility] [address] [place], [place] [address], [facility] [phone] D dimer quantitative (2018 8:12 PM CDT) athologist Signature D Dimer 0.4 0.0 - 0.50 2018 [facility] ug/ml FEU 8:57 PM [facility] Comment: This D-dimer assay is intended for use i n conjunction with a clinical pretest probability assessment model to exclude pulmonary embolism (PE) and deep venous thrombosis (DVT) in outpatients s uspected of PE or DVT. The cut-off value is 0.5 ug/mL FEU. Specimen Anatomical Collection Method Collection Time Receive d Time (Source) Location / / Volume Laterality Blood specimen 2018 8:12 PM 018 8:39 (specimen) CDT PM CDT Chinmay Calvin MD LAB - BLOOD ORDERABLES Performing Organization Address City/[facility]/ZIP Code Phon e Number M [facility] [address] [place], [place] [address] [facility] [address] [place], [place] [address], [facility] [phone] Partial thromboplastin time (2018 8:12 PM CDT) athologist Signature PTT 23 22 - 37 sec 2018 [facility] 8:57 PM [facility]T [facility] Specimen Anatomical Collection Method Collection Time Receive d Time (Source) Location / / Volume Laterality Blood specimen 2018 8:12 PM 018 8:39 (specimen) CDT PM CDT Chinmay Calvin MD LAB - BLOOD ORDERABLES Performing Organization Address City/State/ZIP Code Phon e Number M [facility] [address] [place], [place] [address] [facility] [address] [place], [place] [address], [facility] [phone] INR (2018 8:12 PM CDT) P athologist Signature INR 0.89 0.86 - 1.14 2018 [facility] 8:57 PM CDT [facility]OSPITAL Specimen Anatomical Collection Method Collection Time Receive d Time (Source) Location / / Volume Laterality Blood specimen 2018 8:12 PM 018 8:39 (specimen) CDT PM CDT Chinmay Calvin MD LAB - BLOOD ORDERABLES Performing Organization Address City/State/ZIP Code Phon e Number M [place] [address] [address] [place], [place] [address] [facility] [address] [place], [place] [address], [facility] [phone] (ABNORMAL) CBC with platelets differential (2018 8:12 PM CDT) Patholo gist Method Time Signature WBC 12.8 (H) 4.0 - 2018 [facility] 11.0 9:10 PM [facility] 10e9/L [facility] RBC Count 4.27 3.8 - 5.2 2018 [facility] 10e12/L 9:10 PM [facility] Hemoglobin 13.4 11.7 - 2018 [facility] 15.7 g/dL 9:10 PM [facility] Hematocrit 39.2 35.0 - 2018 [facility] 47.0 % 9:10 PM [facility] MCV 91 78 - 100 2018 [facility] fl 9:10 PM [facility] MCH 31.4 26.5 - 2018 [facility] 33.0 pg 9:10 PM [facility] MCHC 34.2 31.5 - 2018 [facility] 36.5 g/dL 9:10 PM [facility] RDW 13.3 10.0 - 2018 [facility] 15.0 % 9:10 PM [facility] Platelet Count 356 150 - 450 2018 [facility] 10e9/L 9:10 PM [facility] Diff Method Automated 2018 [facility] Method 9:10 PM [facility] % Neutrophils 44.0 % 2018 [facility] 9:11 PM [facility] % Lymphocytes 39.0 % 2018 [facility] 9:11 PM [facility] % Monocytes 8.0 % 2018 [facility] 9:11 PM [facility] % Eosinophils 8.0 % 2018 [facility] 9:11 PM [facility] % Basophils 1.0 % 2018 [facility] 9:11 PM [facility] Absolute 5.7 1.6 - 8.3 2018 [facility] Neutrophil 10e9/L 9:11 PM [facility] Absolute 5.0 0.8 - 5.3 2018 [facility] Lymphocytes 10e9/L 9:11 PM [facility] Absolute 1.0 0.0 - 1.3 2018 [place] Monocytes 10e9/L 9:11 PM [facility] Absolute 1.0 (H) 0.0 - 0.7 2018 [facility] Eosinophils 10e9/L 9:11 PM [facility] Absolute 0.1 0.0 - 0.2 2018 [place] Basophils 10e9/L 9:11 PM [facility] RBC Morphology Consistent 2018 [facility] with reported 9:[address] [facility] HOSPITAL Platelet Automated 2018 [place] Estimate count 9:49 PM [facility] confirmed. [facility]OSPITAL Platelet morphology is normal. Specimen Anatomical Collection Method Collection Time Receive d Time (Source) Location / / Volume Laterality Blood specimen 2018 8:12 PM 018 8:39 (specimen) CDT PM CDT Chinmay Calvin MD LAB - BLOOD ORDERABLES Performing Organization Address City/State/ZIP Code Phon e Number M [facility] [address] [place], [place] [address] [facility] [address] [phone] documented in this encounter Visit Diagnoses Diagnosis Syncope and collapse Urinary tract infection without hematuri a, site unspecified Syncope Syncope and collapse documented in this encounter Administered Medications Inactive Administered Medications - up to 3 most recent administrations Medication Order MAR Action Action Date Dose Rate Site iqqjdxi-wchddtnnqjoud-sjltsxsn Given 01/06/2018 1:19 AM CDT 2 ta blets (EXCEDRIN MIGRAINE) per tablet 2 tablet 2 tablet, Oral, EVERY 6 HOURS PRN, headaches, Starting on Prema 01/06/18 at 0041 cephALEXin (KEFLEX) capsule 500 mg Given 2018 10:36 PM CDT 500 mg STAT, 500 mg, Oral, ONCE, On Wed01/05/18 at 2224, For 1 dose, Indications: Urinary Tract Infection diphenhydrAMINE (BENADRYL) injection 12.5 Given 01/06/2018 1 0:41 AM CDT 12.5 mg mg 12.5 mg, Intravenous, ONCE, Administer over 1-2 Minutes, On Prema 01/06/18 at 1008, For 1 dose, For ordered doses up to 50 mg, give IV Push undiluted. Give each 25mg over a minimum of 1 minute. Extend in non-emergency ketorolac (TORADOL) injection 30 mg Given 01/06/2018 10:41 AM CDT 30 mg 30 mg, Intravenous, ONCE, On Prema 01/06/18 at 1008, For 1 dose, Can cause pain on injection. Administer through a running maintenance fluid over 1 minute followed by a flush. If patient complains of pain on injection, may dilute 15-30 mg in 5 mL and push over 1 to 2 minutes. levothyroxine (SYNTHROID/LEVOTHROID) tablet Given 12/23 10:22 AM CDT 175 mcg 175 mcg 175 mcg, Oral, DAILY, First dose on Prema 01/06/18 at 0800 metoclopramide (REGLAN) injection 10 mg Given 01/06/2018 12:32 PM CDT 10 mg 10 mg, Intravenous, Administer over 2 Minutes, ONCE, On Prema 01/06/18 at 1008, For 1 dose, Avoid use if patient has full bowel obstruction or perforation. Irritant. For ordered doses up to 10 mg, give IV Push undiluted over 2 minutes. ondansetron (ZOFRAN) injection 4 mg 4 mg, Intravenous, EVERY 6 HOURS PRN, nausea, vomiting , Administer over 2-5 Minutes, Starting on Prema 01/06/18 at 0041, This is Step 1 of nausea and vomiting management. If nausea not resolved in 15 minutes, go t o Step 2 prochlorperazine (COMPAZINE). Irritant. For ordered doses up to 4 mg, give IV Push undiluted over 2-5 minutes. ondansetron (ZOFRAN-ODT) ODT tab 4 mg 4 mg, Oral, EVERY 6 HOURS PRN, nausea, v omiting, Starting on Prema 01/06/18 at 0041, This is Step 1 of nausea and vomiting management. If n ausea not resolved in 15 minutes, go to Step 2 prochlorperazine (COMPAZINE). Do not push through foil backing. Peel back foil and gently remove. Place on to ngue immediately. Administration with liquid unnecessary W ith dry hands, peel back foil backing and gently remove tablet; do not push oral d isintegrating tablet through foil backing; administer immediately on tongue and oral disintegrati ng tablet dissolves in seconds; then swallow with saliva; liquid not required . senna-docusate (SENOKOT-S;PERICOLACE) 8. 6-50 MG per tablet 1 tablet 1 tablet, Oral, 2 TIMES DAILY PRN, const ipation, Starting on Prema 01/06/18 at 0043, If no bowel movement in 24 hours, increa se to 2 tablets PO. Hold for loose stools. senna-docusate (SENOKOT-S;PERICOLACE) 8. 6-50 MG per tablet 2 tablet 2 tablet, Oral, 2 TIMES DAILY PRN, const ipation, Starting on Prema 01/06/18 at 0043, Hold for loose stools. SUMAtriptan (IMITREX) injection 6 mg Given 01/06/2018 4:25 AM CDT 6 mg Left Arm 6 mg, Subcutaneous, ONCE PRN, migraine, give if migraine headache persists adter Excedrin migraine med, Starting on Prema 01/06/18 at 0049, For 1 dose, May repeat dose in 2 hours if no relief. Do not exceed 2 doses in 24 hours. documented in this encounter Active and Recently Administered Medications Times are shown in CDT. Scheduled Medication Order 01/04/2018 2018 01/06/2018 cephALEXin (KEFLEX) capsule 500 mg (COMPLETED) 2236 (Given - Provider: Carla Garcia, MARCELA) 500 mg, Oral, ONCE, 01/05/18 at 2224, For 1 dose, Indications: Urinary Tract Infection diphenhydrAMINE (BENADRYL) injection 12.5 mg (COMPLETED) 1041 (Given - Provider: Moni Winslow, MARCELA) 12.5 mg, Intravenous, ONCE, Administer o rad 1-2 Minutes, Prema 01/06/18 at 1008, For 1 dose, For ordered doses up to 50 mg, give IV Push undiluted. Give each 25mg over a minimum of 1 minute. Extend in non-emergency ketorolac (TORADOL) injection 30 mg (COMPLETED) 1041 (Given - Provider: Moni Winslow, MARCELA) 30 mg, Intravenous, ONCE, Prema 01/06/18 at 1008, For 1 dose, Can cause pain on injection. Administer through a running maintenance fluid over 1 minute followed by a flush. If patient complains of pain on injection, may dilute 15-30 mg in 5 mL and push over 1 to 2 tomeka roro. levothyroxine (SYNTHROID/LEVOTHROID) tablet 175 mcg 1022 (Given - Provider: Moni Winslow, MARCELA) 175 mcg, Oral, DAILY, First dose on Prema 01/06/18 at 0800 metoclopramide (REGLAN) injection 10 mg (COMPLETED) 1203 (Not Given - Provider: Moni Winslow RN - Reason: Patient/family refused)1232 (Given - Provider: Moni Winslow, MARCELA) 10 mg, Intravenous, Administer over 2 Mi nutes, ONCE, Prema 01/06/18 at 1008, For 1 dose, Avoid use if patient has full bowel obstruction or perforation. Irritant. For ordered doses up to 10 mg, give IV Push undiluted over 2 minutes. rizatriptan (MAXALT-CHILD WELFARE CASEWORKER) ODT tab 10 mg 1202 (Not Given - Provider: Moni Winslow, MARCELA - Reason: Patient/family refused) 10 mg, Oral, ONCE, Prema 18 at 1008, For 1 dose, Give as ODT- all pharmacy has PRN Medication Order 01/04/2018 2018 01/06/2018 acetaminophen (TYLENOL) Suppository 650 mg 650 mg, Rectal, EVERY 4 HOURS PRN, mild pain, Starting Prema 01/06/18 at 0041, Alternate ibuprofen (if ordered) with acetaminophen. Maximum acetaminophen dose from all sources = 75 mg/kg/day not to exceed 4 grams/day. acetaminophen (TYLENOL) tablet 650 mg 650 mg, Oral, EVERY 4 HOURS PRN, mild pa in, Starting Prema 01/06/18 at 0041, Alternate ibuprofen (if ordered) with acetaminophen. Maximum acetaminophen dose from all sources = 75 mg/kg/day not to exceed 4 grams/day. tvbzrbu-ezhifqpnsrygv-ntoudygx (EXCEDRIN MIGRAINE) per tablet 2 tablet 0119 (Given - Provider: Dayanara Deshpande LPN) 2 tablet, Oral, EVERY 6 HOURS PRN, headaches, Starting Prema at 0041 melatonin tablet 1 mg 1 mg, Oral, AT BEDTIME PRN, sleep, Start ing Prema 01/06/18 at 0041, Do not give unless at least 6 hours of uninterrupted sleep is expected. naloxone (NARCAN) injection 0.1-0.4 mg 0.1-0.4 mg, Intravenous, EVERY 2 MIN PRN , opioid reversal, Starting Prema 01/06/18 at 0041, For respiratory rate LESS than or EQUAL to 8. Partial reversal dose: 0.1 mg titrated q 2 minutes for Analgesia Si de Effects Monitoring Sedation Level of 3 (frequently drowsy, arousable, drifts to sleep during conversation).Full reversal dose: 0.4 mg bolus for Analgesia Side Effects Monitoring Sedation Level of 4 ( somnolent, minimal or no response to sti mulation). For ordered doses up to 2mg give IVP. Give each 0.4mg over 15 seconds in emergency situations. For non- emergent situations further dilute in 9mL of NS to facilitate titration of response. ondansetron (ZOFRAN) injection 4 mg(Linked Group 1) 4 mg, Intravenous, EVERY 6 HOURS PRN, na usea, vomiting, Administer over 2-5 Minutes, Starting Prema 01/06/18 at 0041, This is Step 1 of nausea and vomiting management. If nausea not resolved in 15 minutes, go to Step 2 prochlorperazine (COMPAZIN E). Irritant. For ordered doses up to 4 mg, give IV Push undiluted over 2-5 minutes. ondansetron (ZOFRAN-ODT) ODT tab 4 mg(Linked Group 1) 4 mg, Oral, EVERY 6 HOURS PRN, nausea, v omiting, Starting Prema 01/06/18 at 0041, This is Step 1 of nausea and vomiting management. If nausea not resolved in 15 minutes, go to Step 2 prochlorperazine (COMP AZINE). Do not push through foil backing . Peel back foil and gently remove. Place on tongue immediately. Administration with liquid unnecessary With dry hands, peel back foil backing and gently remove t ablet; do not push oral disintegrating t ablet through foil backing; administer immediately on tongue and oral disintegrating tablet dissolves in seconds; then swallow with saliva; liquid not required. polyethylene glycol (MIRALAX/GLYCOLAX) Packet 17 g 17 g, Oral, DAILY PRN, constipation, Sta rting Prema 01/06/18 at 0043, Give in 8oz of water, juice, or soda. Hold for loose stools. This is the second step of a three step constipation treatment. 1 Packet = 17 grams. Mixed prescribed dose in 8 ou nces of water. Follow with 8 oz. of water. senna-docusate (SENOKOT-S;PERICOLACE) 8. 6-50 MG per tablet 1 tablet(Linked Group 2) 1 tablet, Oral, 2 TIMES DAILY PRN, const ipation, Starting Prema 01/06/18 at 0043, If no bowel movement in 24 hours, increase to 2 tablets PO. Hold for loose stools. senna-docusate (SENOKOT-S;PERICOLACE) 8. 6-50 MG per tablet 2 tablet(Linked Group 2) 2 tablet, Oral, 2 TIMES DAILY PRN, const ipation, Starting Prema 01/06/18 at 0043, Hold for loose stools. SUMAtriptan (IMITREX) injection 6 mg (COMPLETED) 5 (Given - Provider: Olinda Acosta RN) 6 mg, Subcutaneous, ONCE PRN, migraine, give if migraine headache persists adter Excedrin migraine med, Starting Prema 01/06/18 at 0049, For 1 dose, May repeat dose in 2 hours if no relief. Do not exceed 2 doses in 24 hours. Linked Groups Order Group 1: ondansetron (ZOFRAN-ODT) ODT tab 4 mgJump to med 4 mg, Oral, EVERY 6 HOURS PRN, nausea, v omiting, Starting Prema 01/06/18 at 0041
This is Step 1 of nausea and vomiting management. If nausea not resolved in 15 minutes, go to St ep 2 prochlorperazine (COMPAZINE). Do no t push through foil backing. Peel back foil and gently remove. Place on tongue immediately. Administration with liquid unnecessary With dry hands, peel b ack foil backing and gently remove table t; do not push oral disintegrating tablet through foil backing; administer immediately on tongue and oral disintegrating tablet dissolves in seconds; then swallow with saliva; liquid not required.
Or ondansetron (ZOFRAN) injection 4 mgJump to med 4 mg, Intravenous, EVERY 6 HOURS PRN, na usea, vomiting, Administer over 2-5 Minutes, Starting Prema 01/06/18 at 0041
This is Step 1 of nausea and vomiting management. If nausea not resolved in 15 minutes, go to Step 2 prochlorperazine (COMPAZINE). Irritant. For ordered doses up to 4 mg, give IV Push undiluted over 2-5 minutes.
Group 2: senna-docusate (SENOKOT-S;PERICOLACE) 8.6-50 MG per tablet 1 tabletJump to med 1 tablet, Oral, 2 TIMES DAILY PRN, const ipation, Starting Prema 01/06/18 at 0043
If no bowel movement in 24 hours, increase to 2 tablets PO. Hold for loose stools.
Or senna-docusate (SENOKOT-S;PERICOLACE) 8.6-50 MG per tablet 2 tabletJump to med 2 tablet, Oral, 2 TIMES DAILY PRN, const ipation, Starting Prema 01/06/18 at 0043
Hold for loose stools.
documented in this encounter Care Teams Rolling Machine Operator Relationship Specialty Start Date End Date Jeremie Perkins DO PCP - General Family Practice 08/29/17 11/14/18 documented as of this encounter
--- OUTSIDE RECORDS SUMMARY | 2022-08-10 10:55 | XMS_ITS | Encounter Summary ---
:1965 Author Organization [facility] Address [address] [place] [id number] Care Team Providers Name Role Phone No Ref-Primary, Physician Primary Care Provider Bhanu Godoy MD Unavailable Bhanu Godoy MD Unavailable Encounter Details Date Type Department Care Team Description 11/25/2018 Travel Social History Tobacco Use Types Packs/Day [...] documented as of this encounter Care Teams Incident Response Engineer Relationship Specialty Start Date End Date No Ref-Primary, Physician PCP - General 11/15/18 12/20/18 Bhanu Godoy MD PCP - Assigned PCP 10/20/18 12/27/18 [id number] [place] [address] Bhanu Godoy MD Assigned PCP 10/20/18 02/28/22 [id number] [facility], [place] [id number] documented as of this encounter
--- OUTSIDE RECORDS SUMMARY | 2022-08-10 10:55 | XMS_ITS | Encounter Summary ---
:1965 Author Organization [facility] Address [address] [place] [address] Care Team Providers Name Role Phone No Ref-Primary, Physician Primary Care Provider Bhanu Godoy MD Unavailable Bhanu Godoy MD Unavailable Encounter Details Date Type Department Care Team Description 11/18/2018 Travel Social History Tobacco Use Types Packs/Day [...] documented as of this encounter Care Teams Clinical Supervisor Relationship Specialty Start Date End Date No Ref-Primary, Physician PCP - General 11/15/18 12/20/18 Bhanu Godoy MD PCP - Assigned PCP 10/20/18 12/27/18 [id number] [place] [address] Bhanu Godoy MD Assigned PCP 10/20/18 02/28/22 [id number] [facility], [place] [id number] documented as of this encounter
--- OUTSIDE RECORDS SUMMARY | 2022-08-10 10:56 | XMS_ITS | Encounter Summary ---
:1965 Author Organization [facility] Address [address] [place] [id number] Care Team Providers Name Role Phone Yusef Lino MD Primary Care Provider Reason for Visit Reason Comments Abdominal Pain Auth/Cert - Closed Specialty Diagnoses / Procedures Referred By Contact Refer red To Contact Diagnoses Abdominal pain [id number] Medical Surgical [address] [place], [place] [address] Phone: Fax: Referral ID Status Reason Start Date Expiration Date Visits Requ ested Visits Authorized [id number] Closed 1 1 Encounter Details Date Type Department Care Team Description 06/24/2013 - [facility] Vanessa Camacho MD [facility] [address] [place] [address] Abdominal pain (Primary Dx); 06/26/2013 Encounter [facility] Corky Del Rio MD [address] [place], [place] [id number] Pancreatitis Surgical [address] [place] [address] Social History Tobacco Use Types [...] Sign Reading Time Taken Comments Blood Pressure 128/56 06/26/2013 7:25 AM CDT Pulse 83 06/26/2013 7:25 AM CDT Temperature 36 ??C (96.8 ??F) 06/26/2013 7:25 AM CDT Respiratory Rate 16 06/26/2013 7:25 AM CDT Oxygen Saturation 97% 06/26/2013 7:25 AM CDT Inhaled Oxygen Concentration - - Weight 101.9 kg (224 lb 11.2 oz) 06/24/2013 9:13 PM CDT Height 170.2 cm (5' 7) 06/24/2013 9:13 PM CDT Body Mass Index 35.19 06/24/2013 9:13 PM CDT documented in this encounter Discharge Summaries Wandy Stubbs MD - 06/26/2013 10:31 AM CDT DISCHARGE DIAGNOSES: 1. Acute pancreatitis secondary to pancreatic divisum. 2. Hypothyroidism. 3. Depression. 4. ? Narcotic seeking behavior. HOSPITAL COURSE: Richar Culver is a 48-year-old white female who presented with mid epigastric abdominal pain radiating to her mid back. The pain was similar to when she has had previous bouts of pancreatitis. Her symptoms started 2 days prior to presentation associated with vomiting and anorexia. She has not been able to tolerate solids or liquids, had 2 episodes of emesis and some dry heaving. She denied any hemetemesis. She denied any fevers, chills or shortness of breath. She follows up with [facility]. On presentation over here, her vital signs were stable. Her lipase level was checked and was within normal limits. On presentation, her blood work was essentially unremarkable. During her hospital course over here, she received IV Dilaudid. Initially she was n.p.o. Thereafter, she was started on clears. She tolerated her diet well. Her abdominal pain was present, but had subsided from initial presentation. On the day of discharge, the patient subjectively denies any nausea, vomiting, was able to tolerate clear liquid diet. Has been requesting for IV Dilaudid every 3 hours or so. OBJECTIVE: VITAL SIGNS: Temperature is 96.8, blood pressure is 128/56, pulse 83, respiratory rate 16, O2 sat is97%. GENERAL: Alert, awake, oriented, coherent, nontoxic, in no acute distress. NECK: Supple. LUNGS: Clear to auscultation. HEART: Regular rate, S1, S2 normal. ABDOMEN: Soft, nontender, with good bowel sounds. EXTREMITIES: There is no edema. LABORATORY DATA: Lab work obtained on her today included a CMP which is grossly within normal limitsother than an albumin of 3.6 and total protein of 5.9. Recent imaging tests that she had included an MRCP carried out on 06/21/2013 which showed pancreaticdivisum. No MR evidence of acute pancreatitis. No biliary dilatation or choledocholithiasis, prior cholecystectomy. DISCHARGE MEDICATIONS: 1. Hydrocodone/acetaminophen 5/325 one tab p.o. q. 6 hours p.r.n. 2. Paxil 90 mg p.o. q. day. 3. Synthroid 175 mcg p.o. q. day. 4. Imitrex 6 mg subcu p.r.n. q. day. FOLLOWUP: We will have her follow up with her primary care physician as well as [facility]. MARCELINA STUBBS MD [place]: #[id number] Name: RICHAR CULVER MRN: [id number] Account: [id number] : 1965 Admit Date: [id number] Discharge Date: Document: [id number] cc: Yusef Lino MD documented in this encounter Medications at Time of Discharge Medication Sig Dispensed Refills Start Date End Date tovfxfx-acorejvvuafyu-f Take 2 tablets by 0 affeine (EXCEDRIN mouth every 8 hours MIGRAINE) 250-250-65 MG as needed per tablet VITAMIN D, Take 2,000 Units by 0 CHOLECALCIFEROL, PO mouth daily. acetaminophen 650 MG Take 500-1,000 mg by 100 tablet 0 03/3007/23/2013 TABSIndications: Pain mouth every 6 hours as needed. cyyuvrxcdw-opwbiip-pudt Take 1 tablet by 0 07/23/2013 eine (FIORINAL EQUIV) mouth every 4 hours 50-325-40 MG TABS as needed. estrogens-methylTESTOST Take 1 tablet by 0 2018 ERone (ESTRATEST HS) mouth daily. 0.625-1.25 MG per tablet HYDROcodone-acetaminoph Take 1 tablet by 0 07/23/2013 en 5-325 MG per tablet mouth every 6 hours as needed ketorolac (TORADOL) 10 Take 1 tablet (10 mg) 10 tablet 0 07/23/2013 MG tabletIndications: by mouth every 6 Pancreatitis hours as needed for pain Levothyroxine Sodium Take 175 mcg by mouth 0 11/15/2018 (SYNTHROID PO) daily. multivitamin, Take 1 tablet by 30 each 0 03/30/201301/05 therapeutic with mouth daily. minerals (MULTI-VITAMIN) TABSIndications: Dietary supplement discontinued oxyCODONE (ROXICODONE) Take 1-2 tablets 50 tablet 0 013 07/23/2013 5 MG immediate release (5-10 mg) by mouth tabletIndications: every 4 hours as Pancreatitis needed PARoxetine HCl (PAXIL Take 90 mg by mouth 0 2018 PO) daily. Patient takes 3 tabs of 30mg=90mg SUMAtriptan Succinate Inject 6 mg 0 Refill (IMITREX Subcutaneous once. STATDOSE REFILL) 6 May repeat in 1 hr as MG/0.5ML SOLN needed, do not exceed 2 doses per 24hrs documented as of this encounter Progress Notes uJana Tate RN - 06/27/2013 11:17 AM CDT I notified [facility] of pt's recent hospitalization Eli MEDRANO CTS [id number] Jessa Barajas RN - 06/26/2013 11:56 AM CDT Pt. Adequate for discharge. Belongings returned. Discharge instructions given. Ambulating to car with daughter to home. Wandy Stubbs MD - 06/25/2013 10:41 AM CDT 06/25/2013 [facility] Hospitalist Progress Note Name: Richar Culver Date of Admission: 06/24/2013 Interval History: Briefly, 48 y/o WF with hx of pancreatitis due to ? Divisum who presented with epigastric pain radiating to her back along with nausea and dry heaving. Pain similar to prior bouts of pancreatitis in February and April. Epigastric pain that comes and goes. No vomiting. + Nausea, + flatus. Comfortable in bed stating pain 10. Medications: I have reviewed this patient's current medications. Physical Exam: Blood pressure 109/37, temperature 96.3 ??F (35.7 ??C), temperature source Oral, resp. rate 16, height 1.702 m (5' 7), weight 101.923 kg (224 lb 11.2 oz), SpO2 96.00%. Intake/Output Summary (Last 24 hours) at 06/25/13 1043 Last data filed at 06/25/13 0441 Gross per 24 hour Intake 691 ml Output 100 ml Net 591 ml I/O last 3 completed shifts: In: 691 [I.V.:691] Out: 100 [Urine:100] Filed Vitals: 06/24/13 2113 Weight: 101.923 kg (224 lb 11.2 oz) Exam: Gen - AAO x 3 in NAD. Lungs - CTA B. Heart - RR,S1+S2 nml, no m/g/r. Abd - soft, minimal tenderness to palpation in epigastrium, + BS. Ext - no edema. Data: Recent labs, imaging, and other studies were reviewed. Lab 06/25/13 0650 WBC 4.5 HGB 12.9 HCT 37.5 MCV 94 PLT 250 Lab 06/25/13 0650 NA 146* POTASSIUM 3.9 CHLORIDE 110* CO2 28 ANIONGAP 8 GLC 103* BUN 16 CR 0.60 GFRESTIMATED >90 GFRESTBLACK >90 SEJAL 7.8* MAG -- PHOS -- PROTTOTAL -- ALBUMIN -- BILITOTAL -- ALKPHOS -- AST -- ALT -- Lab 06/25/13 0650 06/24/13 1850 LIPASE 34 71 Assessment and Plan: A) Acute /chronic pancreatitis. Start Clears. On IV analgesia and IV anti-emetics. MRCP 06/21 showed divisum. If no improvement will get GI involved. Ambulate/PCD's. documented in this encounter H&P Notes Nakita Mccallum PA - 06/24/2013 9:31 PM CDT History and Physical Richar Culver Date of : 1965 Age: [age] year old Date of Admission: 06/24/2013 Primary care provider: Yusef Lino Assessment and Plan: Richar Culver is a 48 year old female with a PMH significant for acute pancreatitis with underlying pancreatic divisim who presents with upper abdominal pain, nausea and vomiting for 2 days. See HPIfor details 1. Pancreatitis: History of acute pancreatitis thought to be result of pancreatitis divisim. Patientis following with [place] [facility], most recently MRCP was performed with no acute findings. No current elevation in Lipase, no leukocytosis and absence of fever. Will treat as pancreatitis flare with IV fluids, pain medication and antiemetics as needed. Recheck lipase and WBC in morning. NPO with advancement astolerated. Once tolerating soft liquids and solids plan to d/c pain meds. I expect that she will feel better after fluids and pain management with plan to follow up with [facility] as scheduled upon discharg e. 2. Hypothyroid: Continue Levothyroxine 3. Depression: Continue [employer] Paxil 4.DVT: PCD, OOB ambulate as tolerates Full code Chief Complaint: Abdominal Pain History of Present Illness: Richar Culver is a 48 year old female who presents with mid epigastric abdominal pain that radiates across the mid back. Very typical of the pain she experiences with flares of pancreatitis. Symptoms started 48 hours ago and associated with vomiting and anorexia. She has not been able to tolerate solids or liquids today, had 2 episode of vomiting yesterday and 3 today. Denies hematemesis. Denies fevers, chest pain, SOB. Is following with [facility], most recently had MRCP performed an isscheduled to f/u with those results on July 04. Until then, she has been taking PO pain medica tions only as needed for abdominal Pain. She was seen at Clinic yesterday, for her abdominal pain. CBC and CMP were performed and those results are listed below. She was discharged with Vicodin which she tells me did not help her pain, so she presented to the [facility] ER In the ER, she was given NS, Dilaudid for pain, and compazine. She noted only 15-20% improvement in her pain. No labs were performed as record of yesterdays labs at [facility] were available and she remained stable. Past Medical History: Past Medical History Diagnosis Date ??? Pancreatitis 3 episode 1996- 2004 ??? Migraine Past Surgical History: Past Surgical History Procedure Date ??? Cholecystectomy 1992 ??? Orthopedic surgery cervical spine fusion ??? Hired Help surgery hysterectomy ??? Hc ugi endoscopy w eus 05/04/2013 Procedure: COMBINED ENDOSCOPIC ULTRASOUND, ESOPHAGOSCOPY, GASTROSCOPY, DUODENOSCOPY (EGD); Surgeon:Greta Joel MD; Location: GI Social History: . Is not currently employed. Denies history of tobacco use. Denies history of alcohol use, last alcoholic beverage was over 4 months ago. Family History: Family History Problem Relation Age of Onset ??? C.A.D. Father ??? Respiratory Father lung fibrosis ??? Diabetes Brother ??? Diabetes Sister ??? Diabetes Brother ??? Diabetes Brother Allergies: No Known Allergies Medications: Prior to Admission medications Medication Sig Last Dose Taking? Auth Provider HYDROcodone-acetaminophen 5-325 MG per tablet Take 1 tablet by mouth every 6 hours as needed 06/24/2013 at noon Yes Reported, Patient obniwcg-ygxbxvtqjrrbb-gwoqkgvr (EXCEDRIN MIGRAINE) 250-250-65 MG per tablet Take 2 tablets by mouth every 8 hours as needed Yes Dummy, Bfp User pjflskxlmx-ybqicgh-rkompyyx (FIORINAL EQUIV) 50-325-40 MG TABS Take 1 tablet by mouth every 4 hours as needed. 06/23/2013 at Unknown Yes Reported, Patient multivitamin, therapeutic with minerals (MULTI-VITAMIN) TABS Take 1 tablet by mouth daily. 06/24/2013t Unknown Yes Corky Casas MD PARoxetine HCl (PAXIL PO) Take 90 mg by mouth daily. Patient takes 3 tabs of 30mg=90mg 06/24/2013 at Unknown Yes Reported, Patient Levothyroxine Sodium (SYNTHROID PO) Take 175 mcg by mouth daily. 06/24/2013 at Unknown Yes Reported, Patient estrogens-methylTESTOSTERone (ESTRATEST HS) 0.625-1.25 MG per tablet Take 1 tablet by mouth daily. 06/24/2013 at Unknown Yes Reported, Patient VITAMIN D, CHOLECALCIFEROL, PO Take 2,000 Units by mouth daily. 06/24/2013 at Unknown Yes Reported, Patient oxyCODONE (ROXICODONE) 5 MG immediate release tablet Take 1-2 tablets (5-10 mg) by mouth every 4 hours as needed Corky Casas MD acetaminophen 650 MG TABS Take 500-1,000 mg by mouth every 6 hours as needed. Corky Casas MD SUMAtriptan Succinate Refill (IMITREX STATDOSE REFILL) 6 MG/0.5ML SOLN Inject 6 mg Subcutaneous once. May repeat in 1 hr as needed, do not exceed 2 doses per 24hrs Dummy, Bfp User Review of Systems: A Comprehensive greater than 10 system review of systems was carried out. Pertinent positives and negatives are noted above. Otherwise negative for contributory information. Review Of Systems Skin: negative Eyes: negative Ears/Nose/Throat: negative Respiratory: No shortness of breath, dyspnea on exertion, cough, or hemoptysis Cardiovascular: negative Gastrointestinal: Positive for epigastric, substernal pain, nausea and vomiting Genitourinary: negative Musculoskeletal: pain across the mid back Neurologic: negative Psychiatric: negative Hematologic/Lymphatic/Immunologic: negative Endocrine: negative Physical Exam: Blood pressure 113/43, temperature 97 ??F (36.1 ??C), temperature source Oral, resp. rate 16, height1.702 m (5' 7), weight 101.923 kg (224 lb 11.2 oz), SpO2 96.00%. Exam: General: Alert, appears comfortable, answers my questions appropriately and in no distress. Skin: Warm to touch HEENT: Normal chepahlic/Atraumatic. Conjunctivas non injected. EOM's intact. PEERL. Posterior pharynx unremarkable. Buccal Mucosa Neck supple, no adenopathy. Respiratory: Lungs clear to ausculation. No wheezing, rhonchi or rales. No pain across the rib cage Cardiac: Regular rate, rhythm. No murmurs, gallops Abdomen: Soft, obese, not distended. Bowel sound normal active. Diffuse epigastric tenderness. No lower quadrant tenderness. No rebound pain or guarding. Neuro/Muscular: Upper and Lower motor strength equal bilaterally. No lateralizing signs Psychiatric: Normal Affect. Alert and oriented to time and place. Answers question appropriately/intelligenly. Extremities: No edema. Radial and DP pulses strong. Calves soft and non tender Data: Outside Records Obtained (06/23/2013, 2:23 PM): CMP: Cr 0.7 (WNL), ALKPHOS 117.0 (WNL), AST 20.0 (WNL), ALT 33.0 (WNL), TB 0.33 (WNL), Alb 4.4 (WNL)otherwise WNL CBC: WBC 4.5 (WNL), HGB 14.9 (WNL), HCT 45.1 (H), PLT 331 (H), otherwise WNL Lipase: 38 (WNL) Results for orders placed during the hospital encounter of 06/24/13 LIPASE Component Value Range Lipase 71 20 - 250 U/L MRCP IMPRESSION: 1. No MR evidence of acute pancreatitis. 2. Pancreas divisum. 3. No biliary dilatation or choledocholithiasis. 4. Prior cholecystectomy. Nakita Mccallum PA-C This patient was seen and discussed with Dr. Casas who agrees with the current plans as outlined above. Corky Casas MD - 06/24/2013 9:31 PM CDT Agree with plan for admission and treatment of suspected recurrent pancreatitis. documented in this encounter ED Notes Radha Simmons RN - 06/24/2013 8:00 PM CDT Pain down to 8/10 from 07/04 after 1mg of dilaudid. Pt requesting more pain medication. Radha Simmons RN - 06/24/2013 7:54 PM CDT Pt's O2 sat 88% on room air. Placed on 2L NC. O2 sat improved to upper 90s. Mikaela Camacho MD - 06/24/2013 6:56 PM CDT History Chief Complaint: Abdominal Pain HPI Richar Culver is a 48 year old female w/ho pancreatitis and pancreas divisum who presents with abdominal pain. She has been admitted several times this year for pancreatitis and states her lipase only goes up sometimes (February and April) and sometimes it does not. She has been seeing a specialist at [facility] and received a MRCP on 06/21. Last night, the patient began to experience severe upper abdominal pain that radiated to the back that felt like her pancreatitis. She was seen at [facility] and given Vicodin which has not been helping. She currently rates the pain with a severity of 9/10. The patient has vomited twice the past two days and had three episodes of vomiting this afternoon. She is sometimesable to keep fluids down but cannot keep down food. She has not produced stool in 3 days. Otherwise the patient denies any diarrhea, fevers, dysuria, or any other physical complaints at this time. Outside Records Obtained (06/23/2013, 2:23 PM): CMP: Cr 0.7 (WNL), ALKPHOS 117.0 (WNL), AST 20.0 (WNL), ALT 33.0 (WNL), TB 0.33 (WNL), Alb 4.4 (WNL)otherwise WNL CBC: WBC 4.5 (WNL), HGB 14.9 (WNL), HCT 45.1 (H), PLT 331 (H), otherwise WNL Lipase: 38 (WNL) Allergies: No Known Allergies Medications: Vicodin Oxycodone Excedrin migraine Fiorinal Acetaminophen Multivitamin Paxil Synthroid Estratest Vitamin D Imitrex Past Medical History: Pancreatitis Migraine headache Past Surgical History: Cholecystectomy Cervical spine fusion Hysterectomy UGI endoscopy Family History: CAD- Father Lung fibrosis- Father DM- Brother (x3), Sister Social History: Marital status: Tobacco use: Never smoker Alcohol use: Yes, 3-4 drinks per month Review of Systems Constitutional: Positive for appetite change. Negative for fever. Gastrointestinal: Positive for nausea, vomiting, abdominal pain and constipation. Negative for diarrhea. Musculoskeletal: Positive for back pain. All other systems reviewed and are negative. Physical Exam First Vitals: BP: 114/81 mmHg Heart Rate: 110 Temp: 98.7 ??F (37.1 ??C) Resp: 20 SpO2: 97 % Physical Exam General: Cooperative, appears calm and tired while laying in bed Eyes: Sclera white; Pupils are equal and round CV: Tachycardic with regular, normal S1 and S2, with no murmurs. Resp: Breath sounds clear and equal bilaterally GI: Abdomen is soft, epigastric tenderness, no distention No rebound tenderness or peritoneal features Back: No CVA tenderness MS: Moves all extremities Skin: Warm and dry Neuro: Speech is normal and fluent. No apparent deficit. Emergency Department Course Laboratory: Lipase: 71 (WNL) Interventions: Normal saline, 1 L, IV Dilaudid, 1 mg, IV, x2 Compazine, 10 mg, IV ED Course: The patient was roomed. 6:56 PM The patient's medical charts were reviewed and I examined the patient. I discussed the plan of care with the patient which included laboratory work. IV was inserted and blood was drawn. 8:16 PM Discussed the patient with Xena, the PA for Dr. Casas, who will admit the patient for further observation, evaluation, and treatment. Rechecked the patient, findings and plan explained to the patient, who consents to admission. Impression & Plan Medical Decision Making: Ms. Culver is here with what she feels is recurrent pancreatitis. This may well be the case. Her workup at [facility] revealed no alternative etiology such as hepatitis. This could also be gastritis, PUD,chronic pain. She has a normal lipase today which can occur with chronic pancreatitis but she had anelevation as recently as 05/24 >1,000. I wonder if her exacerbation might actually be secondary tothe procedure she had done with MRCP on the . I do not feel that repeating her CBC or chemistry would be helpful after getting the results from yesterday. She is currently failing outpatient therapy, with both regards to pain management and being able to take oral intake. I did discuss the possibility of trying different medications at home but she feelslike this is how she starts to feel when she needs to stay in the hospital. Given that she has triednow for 24 hours outpatient treatment, I feel observation in the hospital is appropriate. She was given fluids and given Compazine and Dilaudid for symptom control. She does not appear to have a plan in place as far as how to handle exacerbations. Hopefully, this is something she will be able to work out with her GI physician in the future. Diagnosis: Abdominal pain I, Apolonia Villalba, am serving as a scribe on 06/24/2013 at 6:56 PM to personally document services performed by Dr. Camacho based on my observations and the provider's statements to me. Mikaela Camacho MD 06/24/132113 Libby Mares RN - 06/24/2013 6:21 PM CDT A&Ox3, ABC's intact Pt c/o upper abd pain with back pain since last night, seen at [facility] given Vicodin is not helping pain, pt has had Pancreatits x 2 since February hospitalized here, pain seems similar, also with n/v. PMH: Neck Surg, Migraines Meds: Epic up to date per pt documented in this encounter Miscellaneous Notes Plan of Care - Jie Chauhan RN - 06/26/2013 6:28 AM CDT Problem: IP GENERAL POC-ADULT,OB,BEHAVIORAL FVCPM Goal: Individualization/Patient-Specific Goal (Adult,OB,Behavioral The patient and/or their claim representative will achieve their patient-specific goals related to the plan of care. The patient-specific goals include: BS active, passing flatus. C/o mild nausea. Given compazine x1. Dilaudid x2 for abdominal pain. LS clear. Up independently. C/o migraine. Given imitrex x1. IV fluids infusing. Tolerating clears well. Plan of Care - Amanda Faith RN - 06/25/2013 11:07 PM CDT Problem: IP GENERAL POC-ADULT,OB,BEHAVIORAL FVCPM Goal: Individualization/Patient-Specific Goal (Adult,OB,Behavioral The patient and/or their claim representative will achieve their patient-specific goals related to the plan of care. The patient-specific goals include: Outcome: No Change Pt vss, michael clears, but slowly. Pt rates her abd pain at 8-08/03. Pt has received IV dilauded 0.5 x3this shift. Voiding well. Denies nausea, up indep to BR. Prob dc tomorrow. Plan of Care - Letaha Antonio RN - 06/25/2013 2:52 PM CDT Problem: IP GENERAL POC-ADULT,OB,BEHAVIORAL FVCPM Goal: Individualization/Patient-Specific Goal (Adult,OB,Behavioral The patient and/or their claim representative will achieve their patient-specific goals related to the plan of care. The patient-specific goals include: Outcome: No Change VS stable Up independently in room Tolerating clear liquids Pain in back, IV Diluadid as needed, Compazine given for nausea Plan of Care - Jie Chauhan RN - 06/25/2013 6:07 AM CDT Problem: IP GENERAL POC-ADULT,OB,BEHAVIORAL FVCPM Goal: Individualization/Patient-Specific Goal (Adult,OB,Behavioral The patient and/or their claim representative will achieve their patient-specific goals related to the plan of care. The patient-specific goals include: VSS. NPO except for ice chips. BS active, passing flatus. C/o nausea; compazine with relief. LS clear. C/o 8/10 pain. Given IV dilaudid with relief. Pt appeared to sleep through night. Pharmacy-Admission Medication History - Emmett Mayfield, [facility] - 06/24/2013 8:25 PM CDT Admission medication history interview status for this patient is complete. See [facility] admission navigator for allergy information, prior to admission medications and immunization status. Medication history interview source(s):Patient Medication history resources (including written lists, pill bottles, clinic record):None Medication history source reliability:Good Primary pharmacy:[facility] Changes made to [employer] medication list: Added: - Deleted: - Changed: - Actions taken by pharmacist (provider contacted, etc):None Additional medication history information:None Medication reconciliation/reorder completed by provider prior to medication history? No Time spent in this activity: 10 min Prior to Admission medications Medication Sig Last Dose Taking? Auth Provider HYDROcodone-acetaminophen 5-325 MG per tablet Take 1 tablet by mouth every 6 hours as needed 06/24/2013 at noon Yes Reported, Patient jinccia-zqbznwywogzvf-clngbggg (EXCEDRIN MIGRAINE) 250-250-65 MG per tablet Take 2 tablets by mouth every 8 hours as needed Yes Dummy, Bfp User glhusplqtt-brybzqv-ajouskmw (FIORINAL EQUIV) 50-325-40 MG TABS Take 1 tablet by mouth every 4 hours as needed. 06/23/2013 at Unknown Yes Reported, Patient multivitamin, therapeutic with minerals (MULTI-VITAMIN) TABS Take 1 tablet by mouth daily. 06/24/2013t Unknown Yes Corky Casas MD PARoxetine HCl (PAXIL PO) Take 90 mg by mouth daily. Patient takes 3 tabs of 30mg=90mg 06/24/2013 at Unknown Yes Reported, Patient Levothyroxine Sodium (SYNTHROID PO) Take 175 mcg by mouth daily. 06/24/2013 at Unknown Yes Reported, Patient estrogens-methylTESTOSTERone (ESTRATEST HS) 0.625-1.25 MG per tablet Take 1 tablet by mouth daily. 06/24/2013 at Unknown Yes Reported, Patient VITAMIN D, CHOLECALCIFEROL, PO Take 2,000 Units by mouth daily. 06/24/2013 at Unknown Yes Reported, Patient oxyCODONE (ROXICODONE) 5 MG immediate release tablet Take 1-2 tablets (5-10 mg) by mouth every 4 hours as needed Corky Casas MD acetaminophen 650 MG TABS Take 500-1,000 mg by mouth every 6 hours as needed. Corky Casas MD SUMAtriptan Succinate Refill (IMITREX STATDOSE REFILL) 6 MG/0.5ML SOLN Inject 6 mg Subcutaneous once. May repeat in 1 hr as needed, do not exceed 2 doses per 24hrs Dummy, Bfp User documented in this encounter Plan of Treatment Not on filedocumented as of this encounter Procedures Procedure Name Priority Date/Time Associated Comments Diagnosis LIPASE Routine 06/26/2013 6:55 AM Results f or this CDT procedure are i n the results section. COMPREHENSIVE Routine 06/26/2013 6:55 AM Results for this METABOLIC PANEL CDT procedure ar e in the results section. CBC WITH PLATELETS & Routine 06/25/2013 6:50 AM R esults for this DIFFERENTIAL CDT procedure are i n the results section. LIPASE Routine 06/25/2013 6:50 AM Results f or this CDT procedure are i n the results section. BASIC METABOLIC PANEL Routine 06/25/2013 6:50 AM Results for this CDT procedure are i n the results section. LIPASE STAT 06/24/2013 6:50 PM Results f or this CDT procedure are i n the results section. documented in this encounter Results Lipase (06/26/2013 6:55 AM CDT) P athologist Signature Lipase 30 20 - 250 [facility] U/L [facility] Specimen Anatomical Collection Method Collection Time Receive d Time (Source) Location / / Volume Laterality Blood specimen 06/26/2013 6:55 AM 013 7:12 (specimen) CDT AM CDT Wandy Stubbs MD, LAB - BLOOD ORDERABLES Performing Organization Address City/State/ZIP Code Phon e Number M [facility] [address] [address] [facility] (ABNORMAL) Comprehensive metabolic panel (06/26/2013 6:55 AM CDT) Analysis Performed At Patho logist Time Signature Sodium 145 (H) 133 - 144 [place] mmol/L [facility] Potassium 4.0 3.4 - 5.3 [place] mmol/L [facility] Chloride 110 (H) 94 - 109 [place] mmol/L [facility] Carbon Dioxide 27 20 - 32 [place] mmol/L [facility] Anion Gap 8 6 - 17 [place] mmol/L [facility] Glucose 80 60 - 99 [place] mg/dL [facility] Urea Nitrogen 6 (L) 7 - 30 [place] mg/dL [facility] Creatinine 0.57 0.52 - [place] 1.04 mg/dL [facility] GFR Estimate >90 >60 [place] mL/min/[address] [place] [address] m2 [facility] GFR Estimate If >90 >60 [place] Black mL/min/1.[address] [place] [address] LAB Calcium 8.1 (L) 8.5 - 10.4 [place] mg/dL [facility] Bilirubin Total 0.3 0.2 - 1.3 [place] mg/dL [facility] Albumin 3.6 (L) 3.9 - 5.1 [place] g/dL [facility] Protein Total 5.9 (L) 6.8 - 8.8 [place] g/dL [facility] Alkaline 82 40 - 150 [place] Phosphatase U/L [facility] ALT 42 0 - 50 U/L [facility] AST 27 0 - 45 U/L [facility] Specimen Anatomical Collection Method Collection Time Receive d Time (Source) Location / / Volume Laterality Blood specimen 06/26/2013 6:55 AM 013 7:12 (specimen) CDT AM CDT Wandy Stubbs MD, MD LAB - BLOOD ORDERABLES Performing Organization Address City/State/ZIP Code Phon e Number M [place] [address], [place] [address] [facility] (ABNORMAL) Basic metabolic panel (06/25/2013 6:50 AM CDT) P athologist Signature Sodium 146 (H) 133 - 144 [place] mmol/L [facility] Potassium 3.9 3.4 - 5.3 [place] mmol/L [facility] Chloride 110 (H) 94 - 109 [place] mmol/L [facility] Carbon Dioxide 28 20 - 32 [place] mmol/L [facility] Anion Gap 8 6 - 17 [place] mmol/L [facility] Glucose 103 (H) 60 - 99 [place] mg/dL [facility] Urea Nitrogen 16 7 - 30 [place] mg/dL [facility] Creatinine 0.60 0.52 - [place] 1.04 mg/dL [facility] GFR Estimate >90 >60 [place] mL/min/1.[address] LAB GFR Estimate If >90 >60 [place] Black mL/min/1.[address] [place] [address] LAB Calcium 7.8 (L) 8.5 - 10.4 [place] mg/dL [facility] Specimen Anatomical Collection Method Collection Time Receive d Time (Source) Location / / Volume Laterality Blood specimen 06/25/2013 6:50 AM 013 7:10 (specimen) CDT AM CDT Corky Casas MD LAB - BLOOD ORDERABLES Performing Organization Address City/State/ZIP Code Phon e Number M [facility] [address] [address] [facility] (ABNORMAL) CBC with platelets differential (06/25/2013 6:50 AM CDT) [facility] Method Time Signature WBC 4.5 4.0 - [place] 11.0 [facility] 10e9/[facility] RBC Count 3.99 3.8 - 5.2 [place] 10e12/L [facility] Hemoglobin 12.9 11.7 - [facility] 15.7 g/dL [facility] Hematocrit 37.5 35.0 - [facility] 47.0 % [facility] MCV 94 78 - 100 [place] fl [facility] MCH 32.3 26.5 - [facility] 33.0 pg [facility] MCHC 34.4 31.5 - [place] 36.5 g/dL [facility] RDW 13.4 10.0 - [facility] 15.0 % [facility] Platelet Count 250 150 - 450 [place] 10e9/L [facility] Diff Method Automated [facility] % Neutrophils 25.9 % [facility] % Lymphocytes 60.0 % [facility] % Monocytes 7.6 % [facility] % Eosinophils 5.8 % [facility] % Basophils 0.7 % [facility] % Immature 0.0 % [place] Granulocytes [facility] Absolute 1.2 (L) 1.6 - 8.3 [place] Neutrophil 10e9/L [facility] Absolute 2.7 0.8 - 5.3 [place] Lymphocytes 10e9/L [facility] Absolute 0.3 0.0 - 1.3 [place] Monocytes 10e9/L [facility] Absolute 0.3 0.0 - 0.7 [place] Eosinophils 10e9/L [facility] Absolute 0.0 0.0 - 0.2 [place] Basophils 10e9/L [facility] Abs Immature 0.0 0 - 0.4 [place] Granulocytes 10e9/L [facility] Specimen Anatomical Collection Method Collection Time Receive d Time (Source) Location / / Volume Laterality Blood specimen 06/25/2013 6:50 AM 013 7:10 (specimen) CDT AM CDT Nakita Mccallum PA-C LAB - BLOOD ORDERABLES Performing Organization Address City/State/ZIP Code Phon e [place] [address] [facility] Lipase (06/25/2013 6:50 AM CDT) P athologist Signature Lipase 34 20 - 250 [facility] U/L [facility] Specimen Anatomical Collection Method Collection Time Receive d Time (Source) Location / / Volume Laterality Blood specimen 06/25/2013 6:50 AM 013 7:10 (specimen) CDT AM CDT Nakita Mccallum PA-C LAB - BLOOD ORDERABLES Performing Organization Address City/[facility]/ZIP [facility] e Number [facility] [address], [place] [address] [facility] Lipase (06/24/2013 6:50 PM CDT) P athologist Signature Lipase 71 20 - 250 [facility] U/L [facility] Specimen Anatomical Collection Method Collection Time Receive d Time (Source) Location / / Volume Laterality Blood specimen 06/24/2013 6:50 PM 013 7:24 (specimen) CDT PM CDT Mikaela Camacho MD LAB - BLOOD ORDERABLES Performing Organization Address City/State/ZIP Code Phon e Number M [facility] [address] [place] [phone] [facility] documented in this encounter Visit Diagnoses Diagnosis Abdominal pain - Primary Pancreatitis Acute pancreatitis documented in this encounter Administered Medications Inactive Administered Medications - up to 3 most recent administrations Medication Order MAR Action Action Date Dose Rate Site 0.9 % sodium chloride IV Rate/Dose Verify 06/24/2013 10:13 PM 1,000 mLs 125 mL/hr solution CDT at 125 mL/hr, Intravenous, CONTINUOUS, Starting on 06/24/13 at 2130, Until 06/25/13 at 0123 0.9 % sodium chloride IV New Bag 06/26/2013 5:39 AM CDT 1,000 mLs 125 mL/hr solution at 125 mL/hr, Intravenous, CONTINUOUS, Starting on 06/25/13 at 1500, Until 06/26/13 at 1436 New Bag 06/25/2013 10:00 PM CDT 1,000 mLs 125 mL/hr New Bag 06/25/2013 3:06 PM CDT 1,000 mLs 125 mL/hr dextrose 5 % and 0.45 % NaCl + KCl 20 New Bag 06/25/2013 12:21 PM CDT 125 mL/hr mEq/L at 125 mL/hr, Intravenous, CONTINUOUS, Starting on 06/25/13 at 0130, Until 06/25/13 at 1453 New Bag 06/25/2013 4:39 AM CDT 125 mL/hr estrogens-methylTESTOSTERone (ESTRATEST HS) Given 11/2012 9:02 AM CDT 1 tablet 0.625-1.25 MG per tablet 1 tablet 1 tablet, Oral, DAILY, First dose on 06/25/13 at 0900 Given 06/25/2013 8:31 AM CDT 1 tablet HYDROmorphone (PF) (DILAUDID) 1 MG/ML in jection Starting on 06/24/13 at 2003, For 1 dose, Randy SIMMONS: nichol mccoy HYDROmorphone (PF) (DILAUDID) injection Given 06/26/2013 10:29 A M CDT 0.5 mg 0.3-0.5 mg 0.3-0.5 mg, Intravenous, EVERY 1 HOUR PRN, moderate to severe pain, Starting on 06/25/13 at 0026 Given 06/26/2013 8:25 AM CDT 0.5 mg Given 06/26/2013 4:47 AM CDT 0.3 mg HYDROmorphone (PF) (DILAUDID) injection 1 mg Given 06/24/2013 7:21 PM CDT 1 mg 1 mg, Intravenous, ONCE, On 06/24/13 at 1930, For 1 dose HYDROmorphone (PF) (DILAUDID) injection 1 mg Given 06/24/2013 8:01 PM CDT 1 mg 1 mg, Intravenous, ONCE, On 06/24/13 at 2000, For 1 dose HYDROmorphone (PF) (DILAUDID) injection 1 mg Given 06/24/2013 9:02 PM CDT 1 mg 1 mg, Intravenous, ONCE, On 06/24/13 at 2115, For 1 dose levothyroxine (SYNTHROID, LEVOTHROID) tablet Given 11/2012 9:02 AM CDT 175 mcg 175 mcg 175 mcg, Oral, DAILY, First dose on 06/25/13 at 0900 Given 06/25/2013 8:30 AM CDT 175 mcg PARoxetine (PAXIL) 90 mg New Bag 06/25/2013 8:32 AM CDT 90 mg 90 mg, Oral, DAILY, First dose on 06/25/13 at 0900 PARoxetine (PAXIL) tablet 10 mg Given 06/26/2013 9:30 AM CDT 10 mg 10 mg, Oral, DAILY, First dose on 06/26/13 at 0930, Total home dose is 90mg daily (80mg + 10mg). PARoxetine (PAXIL) tablet 80 mg Given 06/26/2013 9:30 AM CDT 80 mg 80 mg, Oral, DAILY, First dose on 9/2/13 at 0930, Total home dose is 90mg daily (80mg + 10mg). prochlorperazine (COMPAZINE) injection 1 0 mg Given 06/24/2013 7:21 PM CDT 10 mg 10 mg, Intravenous, ONCE, On 06/24/13 at 1930, For 1 dose prochlorperazine (COMPAZINE) injection 5 -10 mg Given 06/26/2013 4:49 AM CDT 10 mg 5-10 mg, Intravenous, EVERY 6 HOURS PRN, nausea, vomiting, Starting on 06/24/13 at 2128, This is Step 2 of the nausea and vomiting protocol. If nausea not resolved in 15 minutes, give Metoclopramide if ordered (step 3 of nausea and vomiting protocol) Given 06/25/2013 1:56 PM CDT 10 mg Given 06/25/2013 7:30 AM CDT 10 mg sodium chloride 0.9 % BOLUS New Bag 06/24/2013 7:21 PM CDT 1,000 m Ls 1000 mL/hr 1,000 mL Intravenous, 1,000 mL, ONCE, at 1,000 mL/hr, Administer over 1 Hours, On 06/24/13 at 1930, For 1 dose SUMAtriptan (IMITREX) injection 6 mg Given 06/26/2013 9:29 AM CDT 6 mg 6 mg, Subcutaneous, AT ONSET OF HEADACHE, migraine, Starting on 06/26/13 at 0854, May repeat dose in 2 hours if no relief. Do not exceed 2 doses in 24 hours. SUMAtriptan Succinate Refill (IMITREX) refill Given 06/26/20 13 5:35 AM CDT 6 mg kit 6 mg 6 mg, Subcutaneous, AT ONSET OF HEADACHE, Starting on 06/24/13 at 2318, May repeat dose in 2 hours if no relief. Do not exceed 2 doses in 24 hours documented in this encounter Active and Recently Administered Medications Times are shown in CDT. Scheduled Medication Order 06/24/2013 06/25/2013 06/26/2013 estrogens-methylTESTOSTERone (ESTRATEST HS) 0.625-1.25 MG per tablet 1 tablet (CANCELED) 0831 (Given - Provider: Leatha Antonio RN) 0902 (Given - Provider: Arcelia Taveras LPN) 1 tablet, Oral, DAILY, First dose on 9/1/13 at 0900 HYDROmorphone (PF) (DILAUDID) injection 1 mg (COMPLETE D) 1920 (Given - Provider: Moni Ricardo RN) 1 mg, Intravenous, ONCE, 1 dose, 06/24/13 at 1930 HYDROmorphone (PF) (DILAUDID) injection 1 mg (COMPLETE D) 2000 (Given - Provider: Radha Simmons RN) 1 mg, Intravenous, ONCE, 1 dose, 06/24/13 at 2000 HYDROmorphone (PF) (DILAUDID) injection 1 mg (COMPLETE D) 2101 (Given - Provider: Radha Simmons RN) 1 mg, Intravenous, ONCE, 1 dose, 06/24/13 at 2114 levothyroxine (SYNTHROID, LEVOTHROID) tablet 175 mcg (CANCEL ED) 0830 (Given - Provider: Leatha Antonio RN) 0902 (Given - Provider: Arcelia Bolivar LPN) 175 mcg, Oral, DAILY, First dose on 06/25/13 at 0900 PARoxetine (PAXIL) 90 mg (CANCELED) 0832 (New Bag - Provider: Leatha Antonio RN) 0934 (Canceled Entry - Provider: Arcelia Taveras LPN) 90 mg, Oral, DAILY, First dose on 06/25/13 at 0900 PARoxetine (PAXIL) tablet 10 mg (CANCELED) 0930 (Given - Provider: Arcelia Taveras LPN) 10 mg, Oral, DAILY, First dose on 12/07 at 0930, Total home dose is 90mg daily (80mg + 10mg). PARoxetine (PAXIL) tablet 80 mg (CANCELED) 30 (Given - Provider: Arcelia Taveras LPN) 80 mg, Oral, DAILY, First dose on 12/07 at 0930, Total home dose is 90mg daily (80mg + 10mg). prochlorperazine (COMPAZINE) injection 10 mg (COMPLETE D) 1920 (Given - Provider: Moni Ricardo RN) 10 mg, Intravenous, ONCE, 06/24/13 at 1930, For 1 dose sodium chloride 0.9 % BOLUS 1,000 mL (COMPLETED) 1921 (New Bag - Provider: Moni Ricardo, RN)2058 (ED Infusing on Admission/transfer - Provider: Radha Simmons, MARCELA) Intravenous, 1,000 mL, ONCE, at 1,000 mL /hr, for 1 Hours, 06/24/13 at 1930, For 1 dose Continuous Medication Order 06/24/2013 06/25/2013 06/26/2013 0.9 % sodium chloride IV solution (CANCELED) 2213 (Rat e/Dose Verify - Provider: Ni Teran, RN) at 125 mL/hr, Intravenous, CONTINUOUS 0.9 % sodium chloride IV solution (CANCELED) 1506 (New Bag - Provider: Leatha Antonio RN)2200 (New Bag - Provider: Amanda Faith RN) 0539 (New Bag - Provider: Itzel Augustin LPN) at 125 mL/hr, Intravenous, CONTINUOUS dextrose 5 % and 0.45 % NaCl + KCl 20 mEq/L (CANCELED) 0439 (New Bag - Provider: Reena Clements LPN)1221 (New Bag - Provider: Leatha Antonio, MARCELA) at 125 mL/hr, Intravenous, CONTINUOUS PRN Medication Order 06/24/2013 06/25/2013 06/26/2013 HYDROmorphone (PF) (DILAUDID) injection 0.3-0.5 mg (CANCELED ) 0105 (Given - Provider: Jie Chauhan RN)0659 (Given - Provider: Jie Chauhan RN)0925 (Given - Provider: Leatha Antonio, MARCELA)1216 (Given - Provider: Leatha Antonio, MARCELA)1438 (Given - Provider: Leatha Antonio, MARCELA) 0120 (Given - Provider: Jie Chauhan RN)0447 (Given - Provider: Jie Cahuhan RN)0825 (Given - Provider: Jessa Barajas, RN)1029 (Given - Provider: Jessa Barajas, RN) 0.3-0.5 mg, Intravenous, EVERY 1 HOUR HI N, Starting 06/25/13 at 0026, Until 06/26/13 at 1436, moderate to severe pain 1643 (Give n - Provider: Amanda Faith, RN)1840 (Given - Provider: Amanda Faith RN)2150 (Given - Provider: Amanda Faith RN) prochlorperazine (COMPAZINE) injection 5-10 mg (CANCELED) 0113 (Given - Provider: Jie Chauhan, RN)0730 (Given - Provider: Jie Chauhan RN)1356 (Given - Provider: Leatha Antonio RN) 0449 (Given - Provider: Jie Chauhan RN) 5-10 mg, Intravenous, EVERY 6 HOURS PRN, nausea, vomiting, Starting 06/24/13 at 2128, This is Step 2 of the nausea and vomiting protocol. If nausea not resolved in 15 minutes, give Metoclopramide if ordered (step 3 of nausea and vomiting protocol) SUMAtriptan (IMITREX) injection 6 mg (CANCELED) 0929 (Given - Provider: Arcelia Taveras LPN) 6 mg, Subcutaneous, AT ONSET OF HEADACHE , migraine, Starting 06/26/13 at 0854, May repeat dose in 2 hours if no relief. Do not exceed 2 doses in 24 hours. SUMAtriptan Succinate Refill (IMITREX) refill kit 6 mg (CANCELED ) 0535 (Given - Provider: Itzel Augustin LPN) 6 mg, Subcutaneous, AT ONSET OF HEADACHE , Starting 06/24/13 at 2318, May repeat dose in 2 hours if no relief. Do not exceed 2 doses in 24 hours documented in this encounter Care Teams Nutrition And Dietetics Instructor Relationship Specialty Start Date End Date Yusef Lino MD PCP - General Family Practice 03/24/13 08/28/17 [facility] [id number] [place] [address] documented as of this encounter
--- OUTSIDE RECORDS SUMMARY | 2022-08-10 10:56 | XMS_ITS | Encounter Summary ---
:1965 Author Organization [place] Address [address] [place] [id number] Care Team Providers Name Role Phone Yusef Lino MD Primary Care Provider Reason for Visit Reason Comments Abdominal Pain Auth/Cert - Closed Specialty Diagnoses / Procedures Referred By Contact Refer red To Contact Diagnoses Pancreatitis [id number] [address] [place], [place] [address] Phone: Fax: Referral ID Status Reason Start Date Expiration Date Visits Requ ested Visits Authorized [id number] Closed 1 1 Encounter Details Date Type Department Care Team Description 03/24/[address] - [facility] tommy Ocasio MD [facility] [address] [place], [place] [id number] Pancreatitis (Primary Dx); 03/30/2013 Encounter [facility] Juana Azar MD [address] [place], [place] [phone] Pain; Surgical Dietary supplement discontin ued; [address] [place] [address] Social History Tobacco Use Types [...] Sign Reading Time Taken Comments Blood Pressure 123/62 03/30/2013 7:33 AM CDT Pulse 91 03/28/2013 3:27 PM CDT Temperature 36.4 ??C (97.6 ??F) 03/30/2013 7:33 AM CDT Respiratory Rate 16 03/30/2013 7:33 AM CDT Oxygen Saturation 96% 03/30/2013 7:33 AM CDT Inhaled Oxygen Concentration - - Weight 108 kg (238 lb) 03/25/2013 1:16 PM CDT Height 170.2 cm (5' 7) 03/25/2013 1:16 PM CDT Body Mass Index 37.28 03/25/2013 1:16 PM CDT documented in this encounter Discharge Summaries Corky Casas MD - 03/30/2013 11:41 AM CDT Discharge Summary Mariia Culver Date of : 1965 Age: [age] year old Date of Admission: 03/24/2013 Date of Discharge: 03/30/2013 Admitting Physician: Axel Correa MD Discharge Physician: Corky Casas MD, MD Discharging Service: Hospitalist Home clinic: [facility] Primary Provider: Yusef Lino Discharge Diagnosis: 1. Acute pancreatitis, resolving. 2. Migraine headache, resolved. 3. Dyspepsia. 4. Hypothyroidism. 5. Depression. Discharge Disposition: Discharged to home Allergies: No Known Allergies Discharge Medications: Current Discharge Medication List START taking these medications Details oxyCODONE (ROXICODONE) 5 MG immediate release tablet Take 1-2 tablets by mouth every 4 hours as needed. Qty: 28 tablet, Refills: 40 Associated Diagnoses: Pancreatitis acetaminophen 650 MG TABS Take 500-1,000 mg by mouth every 6 hours as needed. Qty: 100 tablet Associated Diagnoses: Pain prochlorperazine (COMPAZINE) 5 MG tablet Take 1-2 tablets by mouth every 6 hours as needed for nausea. Qty: 40 tablet, Refills: 1 Associated Diagnoses: Nausea ranitidine (ZANTAC) 150 MG tablet Take 1 tablet by mouth 2 times daily for 30 days. Qty: 60 tablet, Refills: 0 Associated Diagnoses: Dyspepsia CONTINUE these medications which have CHANGED Details multivitamin, therapeutic with minerals (MULTI-VITAMIN) TABS Take 1 tablet by mouth daily. Qty: 30 each Comments: Hold- do not take until feeling better Associated Diagnoses: Dietary supplement discontinued CONTINUE these medications which have NOT CHANGED Details PARoxetine HCl (PAXIL PO) Take 90 mg by mouth daily. Patient takes 3 tabs of 30mg=90mg Levothyroxine Sodium (SYNTHROID PO) Take 175 mcg by mouth daily. estrogens-methylTESTOSTERone (ESTRATEST HS) 0.625-1.25 MG per tablet Take 1 tablet by mouth daily. VITAMIN D, CHOLECALCIFEROL, PO Take 2,000 Units by mouth daily. SUMAtriptan Succinate Refill (IMITREX STATDOSE REFILL) 6 MG/0.5ML SOLN Inject 6 mg Subcutaneous once. May repeat in 1 hr as needed, do not exceed 2 doses per 24hrs Condition on Discharge: Discharge condition: Stable Discharge vitals: Blood pressure 123/62, pulse 91, temperature 97.6 ??F (36.4 ??C), temperature source Oral, resp. rate 16, height 1.702 m (5' 7), weight 107.956 kg (238 lb), SpO2 96.00%. Code status on discharge: Full Code Physical exam on day of discharge: GENERAL: Comfortable. Cooperative. PSYCH: pleasant, oriented, No acute distress. EYES: PERRLA, Normal conjunctiva. HEART: Regular rate and rhythm. No JVD. Pulses normal. No edema. LUNGS: Clear to auscultation, normal Respiratory effort. ABDOMEN: Soft, no hepatosplenomegaly, normal bowel sounds. Mild to moderate epigastric tenderness. EXTREMETIES: No clubbing, cyanosis or ischemia SKIN: Dry to touch, No rash. History of Present Illness and Hospital Course: Debbi Culver is a 48 yo female with history of pancreatitis, migraine headaches, and hypothyroidism. She presented to the ED for evaluation of abdominal pain. She was found to have acute pancreatitis with no obvious cause. Her lipase was 6443. This is her third episode of pancreatitis. Her last episode was 12 or more years ago and she had unremarkable ERCP at that time. She was seen by GI during this admission and conservative management followed by outpatient EUS was recommended. She was kept NPO, given IVF, and given antiemetic and pain medications as needed. Over the next few days her lipase normalized. She continued to rate her pain relatively high, however. CT of the abdomen was obtained on hospital day 5 due to persistent high pain scores. There was no evidence of inflammatory changes of the pancreas or pseudocyst. No other cause of abdominal pain was found. With this normal CT and normal lipase a low fat diet was started. She has tolerated low fat diet but has continued to have high pain scores. We discussed several options from this point. The most aggress brandie option would be to place keofeed tube to the jejunum and try jejunal tube feeds for prolonged pancreatic rest. We discussed that feeding tube could be placed here and she could discharge home with tube feeds. The other option we discussed was continuing low fat diet as inpatient or outpatient withcontinued oral pain medications as needed. She prefers continuing low fat diet and discharging home.I think that this is reasonable as she does not look toxic and has normal lipase, white blood count,and CT. She does not have objective signs of worsening pancreatitis- only high pain scores. She doesnot appear as uncomfortable as her pain scores suggest and the fact that she prefers to discharge home in spite of a pain score of 8 suggests that this is likely, in part at least, a function of difficulty interpreting her pain scores. So she will discharge home today on a low fat diet with some oxycodone. I am also recommending one month of zantac in case there is some component of dyspepsia. She will follow up with her PCP next week (Dr. Lino at [facility]) and with [facility] for EUS and as needed. Procedures / Imaging: CT of abdomne Consultations: Consultation during this admission received from gastroenterology Significant Results: Discussed above Pending Results: Discussed above Discharge Instructions and Follow-Up: Discharge diet: Low fat Discharge activity: Activity as tolerated Discharge follow-up: Follow up with primary care provider in 1-2 weeks Follow up with [facility] as needed and as scheduled by [facility] Outpatient therapy: None Home Care agency: None Other instructions: See MD for evaluation if you develop fever, increased pain, or other acute symptoms of infection. Total time spent in face to face contact with the patient and coordinating discharge was: 45 Minutes documented in this encounter Medications at Time of Discharge Medication Sig Dispensed Refills Start Date End Date VITAMIN D, Take 2,000 Units by 0 CHOLECALCIFEROL, PO mouth daily. acetaminophen 650 MG Take 500-1,000 mg by 100 tablet 0 03/3007/23/2013 TABSIndications: Pain mouth every 6 hours as needed. estrogens-methylTESTOSTE Take 1 tablet by 0 2018 Zack (ESTRATEST HS) mouth daily. 0.625-1.25 MG per tablet Levothyroxine Sodium Take 175 mcg by 0 11/15/2018 (SYNTHROID PO) mouth daily. multivitamin, Take 1 tablet by 30 each 0 03/30/201301/05 therapeutic with mouth daily. minerals (MULTI-VITAMIN) TABSIndications: Dietary supplement discontinued oxyCODONE (ROXICODONE) 5 Take 1-2 tablets by 28 tablet 40 05/24/2013 MG immediate release mouth every 4 hours tabletIndications: as needed. Pancreatitis PARoxetine HCl (PAXIL Take 90 mg by mouth 0 2018 PO) daily. Patient takes 3 tabs of 30mg=90mg prochlorperazine Take 1-2 tablets by 40 tablet 1 03/30/2013 05/24/2013 (COMPAZINE) 5 MG mouth every 6 hours tabletIndications: as needed for Nausea nausea. ranitidine (ZANTAC) 150 Take 1 tablet by 60 tablet 0 201204/18/2013 MG tabletIndications: mouth 2 times daily Dyspepsia for 30 days. SUMAtriptan Succinate Inject 6 mg 0 Refill (IMITREX STATDOSE Subcutaneous once. REFILL) 6 MG/0.5ML SOLN May repeat in 1 hr as needed, do not exceed 2 doses per 24hrs documented as of this encounter Progress Notes Faizan Rangel RN - 03/30/2013 1:48 PM CDT Reviewed discharge orders with the [...] and has no questions.Patient was discharged at 1348 accompanied by brother. Corky Casas MD - 03/29/2013 9:38 AM CDT [facility] Hospitalist Progress Note Assessment and Plan: 1. Acute pancreatitis. No clear cause. Ab pain slowly improves but is not resolving as I would expect. Lipase has normalized. Check CT of abdomen and pelvis. If signs of acute pancreatitis continue only clear liquid diet. If CT is negative, advance to low fat diet. If CT shows early pseudocyst I will likely try advancement of diet and recommend outpatient Surgery follow up. 2. Hypothyroidism. On Synthroid. 3. Depression. On Paxil. 4. DVT prophylaxis. On Lovenox. 5. Dispo. Home once pain improves significantly and tolerating low fat diet. Interval History: Still with mid ab pain that she rates at 5/10 Medications: I have reviewed this patient's current medications Physical Exam: Blood pressure 124/65, pulse 91, temperature 96.6 ??F (35.9 ??C), temperature source Oral, resp. rate 16, height 1.702 m (5' 7), weight 107.956 kg (238 lb), SpO2 93.00%. Intake/Output Summary (Last 24 hours) at 03/29/13 0940 Last data filed at 03/29/13 0600 Gross per 24 hour Intake 3025 ml Output 1550 ml Net 1475 ml GENERAL: Comfortable appearing. Cooperative. PSYCH: pleasant, oriented, No acute distress. EYES: PERRLA, Normal conjunctiva. HEART: Regular rate and rhythm. No JVD. Pulses normal. No edema. LUNGS: Clear to auscultation, normal Respiratory effort. ABDOMEN: Soft, no hepatosplenomegaly, normal bowel sounds. Mid abdomen/epigastric tenderness with palpation. No rebound tenderness or guarding. EXTREMETIES: No clubbing, cyanosis or ischemia SKIN: Dry to touch, No rash. Data: Recent labs, imaging, and other studies were reviewed. NA 141 03/28/2013 NA 141 03/26/2013 NA 141 03/25/2013 CHLORIDE 103 03/28/2013 CHLORIDE 106 03/26/2013 CHLORIDE 105 03/25/2013 BUN 6 03/28/2013 BUN 9 03/26/2013 BUN 16 03/25/2013 POTASSIUM 3.9 03/28/2013 POTASSIUM 4.6 03/26/2013 POTASSIUM 4.1 03/25/2013 CO2 29 03/28/2013 CO2 24 03/26/2013 CO2 27 03/25/2013 CR 0.57 03/28/2013 CR 0.48 03/26/2013 CR 0.61 03/25/2013 Lab 03/28/13 0705 03/26/13 0625 03/25/13 0640 03/24/13 2115 WBC -- 5.8 -- 11.3* HGB -- 12.9 -- 15.4 HCT -- 38.4 -- 44.1 MCV -- 96 -- 93 PLT 314 268 260 -- Lab 03/25/13 0640 03/24/13 2115 AST 34 39 ALT 45 46 GGT -- -- ALKPHOS 62 84 BILITOTAL 0.5 0.4 BILICONJ -- -- BILIDIRECT -- -- ERON -- -- Lab 03/28/13 0705 03/27/13 0654 03/26/13 0625 LIPASE 182 448* 1172* Corky Casas MD - 03/28/2013 8:26 AM CDT [facility] Hospitalist Progress Note Assessment and Plan: 1. Acute pancreatitis. No clear cause. Ab pain is a little better today but not gone. Lipase is normal. Start clears. Reassess tomorrow. If pain is not better, consider CT of abdomen to assess for pseudocyst. 2. Hypothyroidism. On Synthroid. 3. Depression. On Paxil. 4. DVT prophylaxis. On Lovenox. 5. Dispo. Home once pain gone and tolerating low fat diet. Interval History: Patient is having less pain this morning, but still some pain. No nausea or vomiting. Tired of beingin the hospital. Medications: I have reviewed this patient's current medications Physical Exam: Blood pressure 131/56, pulse 102, temperature 97.6 ??F (36.4 ??C), temperature source Oral, resp. rate 18, height 1.702 m (5' 7), weight 107.956 kg (238 lb), SpO2 94.00%. Intake/Output Summary (Last 24 hours) at 03/28/13 08 Last data filed at 03/28/13 0825 Gross per 24 hour Intake 1070.3 ml Output 2200 ml Net -1129.7 ml GENERAL: Comfortable. Cooperative. PSYCH: pleasant, oriented, No acute distress. EYES: PERRLA, Normal conjunctiva. HEART: Regular rate and rhythm. No JVD. Pulses normal. No edema. LUNGS: Clear to auscultation, normal Respiratory effort. ABDOMEN: Soft, no hepatosplenomegaly, normal bowel sounds. Tender in lower mid abdomen. No rebound tenderness or guarding. EXTREMETIES: No clubbing, cyanosis or ischemia SKIN: Dry to touch, No rash. Data: Recent labs, imaging, and other studies were reviewed. NA 141 03/28/2013 NA 141 03/26/2013 NA 141 03/25/2013 CHLORIDE 103 03/28/2013 CHLORIDE 106 03/26/2013 CHLORIDE 105 03/25/2013 BUN 6 03/28/2013 BUN 9 03/26/2013 BUN 16 03/25/2013 POTASSIUM 3.9 03/28/2013 POTASSIUM 4.6 03/26/2013 POTASSIUM 4.1 03/25/2013 CO2 29 03/28/2013 CO2 24 03/26/2013 CO2 27 03/25/2013 CR 0.57 03/28/2013 CR 0.48 03/26/2013 CR 0.61 03/25/2013 Lab 03/28/13 0705 03/26/13 0625 03/25/13 0640 03/24/13 2115 WBC -- 5.8 -- 11.3* HGB -- 12.9 -- 15.4 HCT -- 38.4 -- 44.1 MCV -- 96 -- 93 PLT 314 268 260 -- Corky Casas MD - 03/27/2013 11:51 AM CDT [facility] Hospitalist Progress Note Assessment and Plan: 48 yo female presented with abdominal pain and was found to have acute pancreatitis with no obvious cause. This is her third episode of pancreatitis. Her last episode was 12 or more years ago and she had unremarkable ERCP at that time. She was seen by GI and conservative management followed by outpatient EUS was recommended. 1. Acute pancreatitis. No clear cause. Ab pain is worse this am after eating oatmeal. Replace IV, resume NPO, and restart IVF. Check am labs and reassess in the morning. 2. Hypothyroidism. Synthroid. 3. Depression. Paxil. 4. DVT prophylaxis. Lovenox. 5. Dispo. Home once pain gone and tolerating low fat diet. Interval History: Patient had increase in ab pain after eating oatmeal this morning. Medications: I have reviewed this patient's current medications Physical Exam: Blood pressure 119/56, pulse 92, temperature 96.4 ??F (35.8 ??C), temperature source Oral, resp. rate 14, height 1.702 m (5' 7), weight 107.956 kg (238 lb), SpO2 96.00%. Intake/Output Summary (Last 24 hours) at 03/27/13 1156 Last data filed at 03/27/13 0553 Gross per 24 hour Intake 1590 ml Output 2950 ml Net -1360 ml GENERAL: Comfortable. Cooperative. PSYCH: pleasant, oriented, No acute distress. EYES: PERRLA, Normal conjunctiva. HEART: Regular rate and rhythm. No JVD. Pulses normal. No edema. LUNGS: Clear to auscultation, normal Respiratory effort. ABDOMEN: Soft, no hepatosplenomegaly, normal bowel sounds. EXTREMETIES: No clubbing, cyanosis or ischemia SKIN: Dry to touch, No rash. Data: Recent labs, imaging, and other studies were reviewed. NA 141 03/26/2013 NA 141 03/25/2013 NA 139 03/24/2013 CHLORIDE 106 03/26/2013 CHLORIDE 105 03/25/2013 CHLORIDE 100 03/24/2013 BUN 9 03/26/2013 BUN 16 03/25/2013 BUN 18 03/24/2013 POTASSIUM 4.6 03/26/2013 POTASSIUM 4.1 03/25/2013 POTASSIUM 3.8 03/24/2013 CO2 24 03/26/2013 CO2 27 03/25/2013 CO2 26 03/24/2013 CR 0.48 03/26/2013 CR 0.61 03/25/2013 CR 0.64 03/24/2013 Lab 03/26/13 0625 03/25/13 0640 03/24/13 2115 WBC 5.8 -- 11.3* HGB 12.9 -- 15.4 HCT 38.4 -- 44.1 MCV 96 -- 93 PLT 268 260 353 Lab 03/25/13 0640 03/24/13 2115 AST 34 39 ALT 45 46 GGT -- -- ALKPHOS 62 84 BILITOTAL 0.5 0.4 BILICONJ -- -- BILIDIRECT -- -- ERON -- -- Lab 03/27/13 0654 03/26/13 0625 03/25/13 0640 LIPASE 448* 1172* 3178* Ar Roach, DO - 03/26/2013 7:55 PM CDT S: Still with some abdominal pain, but improved. Hungry. No CP, SOB, F/C, N/V. O: VSS: BP 124/50 Pulse 91 Temp 96.8 ??F (36 ??C) (Oral) Resp 10 Ht 1.702 m (5' 7) Wt 107.956 kg (238 lb) BMI 37.28 kg/m2 SpO2 97% Gen: NAD, A&Ox3. Eyes: PERRL, sclera anicteric. OP: MMM, no lesions. Neck: Supple. CV: Regular, no murmurs. Lung: CTA b/l, normal effort. Ab: +BS, soft. Skin: Warm, dry to touch. No rash. Ext: No pitting edema LE b/l. Labs: Creat 0.48, Lipase 1172. A/P: 48 yo female with pancreatitis. 1. Pancreatitis. Improving. Lipase down to 1172. MED SURG NURSE stopped. Tolerated clear liquids for breakfast and lunch. Allow full liquids for dinner. Pain meds PRN. 2. Hypothyroidism. Synthroid. 3. Depression. Paxil. 4. DVT prophylaxis. Lovenox. Jus Marks PA-C - 03/26/2013 11:23 AM CDT GASTROENTEROLOGY PROGRESS NOTE CC: Acute pancreatitis SUBJECTIVE: Pt reports feeling like a normal person again. Margaret clear liquids. Very sleepy this AM.MED SURG NURSE has been turned off. No new c/o. OBJECTIVE: General Appearance: somnolent, NAD BP 117/63 Pulse 91 Temp 96.8 ??F (36 ??C) (Oral) Resp 16 Ht 1.702 m (5' 7) Wt 107.956 kg (238 lb) BMI 37.28 kg/m2 SpO2 98% Temp (24hrs), Av.9 ??F (36.1 ??C), Min:96.2 ??F (35.7 ??C), Max:98.5 ??F (36.9 ??C) Patient Vitals for the past 72 hrs: Weight 03/25/13 1316 107.956 kg (238 lb) Intake/Output Summary (Last 24 hours) at 03/26/13 1123 Last data filed at 03/26/13 1000 Gross per 24 hour Intake 2802 ml Output 3050 ml Net -248 ml PHYSICAL EXAM GI: +BS, soft, NT, ND Additional Comments: ROS, FH, SH: See initial GI consult for details. I have reviewed the patient's new clinical lab results: Recent Labs Lab Test 03/26/1362403/25/1363903/24/13211410/07/08 1945 WBC 5.8 -- 11.3* 4.5 HGB 12.9 -- 15.4 14.9 MCV 96 -- 93 94 PLT 268 260 353 -- INR -- -- -- -- Recent Labs Lab Test 03/26/1362403/25/1363903/24/13 211 POTASSIUM 4.6 4.1 3.8 CHLORIDE 106 105 100 CO2 24 27 26 BUN 9 16 18 ANIONGAP 10.9 8.6 12.4 GLUCOSE -- -- -- Recent Labs Lab Test 03/26/1362401/13 0640 03/24/13 2115 10/07/08 2150 10/07/08 1945 ALBUMIN -- 3.3* 4.6 -- 4.2 BILITOTAL -- 0.5 0.4 -- 0.4 BILIDIRECT -- -- -- -- -- ALT -- 45 46 -- 52* AST -- 34 39 -- 39 PROTEIN -- -- 10* 10* -- LIPASE 1172* 3178* 6443* -- -- AMYLASE -- -- -- -- -- Patient Active Hospital Problem List: Acute Pancreatitis Assessment: Labs and symptoms are improving. Trigs were normal. No clear cause of this episode. Plan: ADAT. PRN pain/nausea control. Can d/c home tomorrow if remains stable. My office will call her next week to arrange outpatient EUS in 6 weeks. Signing off, call if you need us. uJs Marks PA-C [facility] Ar Roach DO - 03/25/2013 1:56 PM CDT Patient seen and examined. Chart reviewed. Plan unchanged. See admission H&P from earlier today by Dr. Azar for details. documented in this encounter H&P Notes Juana Azar MD - 03/25/2013 4:06 AM CDT History and Physical Mariia Culver Date of : 1965 Age: [age] year old Date of Admission: 03/24/2013 Primary care provider: Yusef Lino Assessment and Plan: Patient Active Hospital Problem List: Pancreatitis (03/25/2013) Assessment: History of pancreatitis 3 x In the past, not associated with alcohol consumption or medications. Plan: IV fluids, dilaudid for pain, NPO, zofran for nausea, GI consult Migraine headache (03/25/2013) Assessment: worse with the pancreatitis Plan: provide her usual medications, Imitrex and fiorinal with codeine Attestation: This patient has been seen and evaluated by me, Juana Azar MD, MD. Chief Complaint: Nausea and abdominal pain History is obtained from the patient and electronic health record History of Present Illness: This patient is a 48 year old female who presents with one day of increasing Epigastric abdominal pain and nausea. She has had no vomiting, fever or chills and normal urinating and stooling. Ms. Culver has had 3 episodes of pancreatitis in the past, the first ( 1997) required hospitalization and the next 2 episodes she managed at home. She has had no symptoms of pancreatitis for about 7 years. Thehospitalization for pancreatitis was at [facility] and she had a sphincterotomy during that admission. Cholecystectomy had been performed about 1992. The episodes of pancreatitis were not associated with alcohol consumption or medications. Ms. Culver presented to the [facility] Emergency Department due to the increasing abdominal pain that was similar to her past episodes of pancreatitis Past Medical History: Past Medical History Diagnosis Date ??? Pancreatitis 3 episode 1996- 2004 ??? Migraine Past Surgical History: Past Surgical History Procedure Date ??? Blasting [place] surgery hysterectomy ??? Cholecystectomy 1992 ??? Orthopedic surgery cervical spine fusion Social History: History Social History ??? Marital Status: Spouse Name: N/A Number of Children: N/A ??? Years of Education: N/A Occupational History ??? Not on file. Social History Main Topics ??? Smoking status: Never Smoker ??? Smokeless tobacco: Never Used ??? Alcohol Use: Yes 3-4 drinks per month ??? Drug Use: ??? Sexually Active: Other Topics Concern ??? Not on file Social History Narrative Lives in [place] with her and adult son and teenage [...] and is in the process of appeal. Family History: Family History Problem Relation Age of Onset ??? C.A.D. Father ??? Respiratory Father lung fibrosis ??? Diabetes Brother ??? Diabetes Sister ??? Diabetes Brother ??? Diabetes Brother Immunizations: There is no immunization history on file for this patient. Allergies: No Known Allergies Medications: Prescriptions prior to admission Medication Sig Dispense Refill ??? PARoxetine HCl (PAXIL PO) Take 90 mg by mouth daily. Patient takes 3 tabs of 30mg=90mg ??? Levothyroxine Sodium (SYNTHROID PO) Take 175 mcg by mouth daily. ??? estrogens-methylTESTOSTERone (ESTRATEST HS) 0.625-1.25 MG per tablet Take 1 tablet by mouth daily. ??? VITAMIN D, CHOLECALCIFEROL, PO Take 2,000 Units by mouth daily. ??? multivitamin, therapeutic with minerals (MULTI-VITAMIN) TABS Take 1 tablet by mouth daily. ??? SUMAtriptan Succinate Refill (IMITREX STATDOSE REFILL) 6 MG/0.5ML SOLN Inject 6 mg Subcutaneous once. May repeat in 1 hr as needed, do not exceed 2 doses per 24hrs Review of Systems: C: NEGATIVE for fever, chills, change in weight I: NEGATIVE for worrisome rashes, moles or lesions E: NEGATIVE for vision changes or irritation E/M: NEGATIVE for ear, mouth and throat problems R: NEGATIVE for significant cough or SOB CV: NEGATIVE for chest pain, palpitations or peripheral edema : NEGATIVE for frequency, dysuria, or hematuria M: NEGATIVE for significant arthralgias or myalgia N: NEGATIVE for new weakness, dizziness or paresthesias- She does get arm weakness and paresthesias from overexertion and neck strain E: NEGATIVE for temperature intolerance, skin/hair changes H: NEGATIVE for bleeding problems P: NEGATIVE for changes in mood or affect Physical Exam: Blood pressure 128/50, pulse 91, temperature 97.6 ??F (36.4 ??C), temperature source Oral, resp. rate 16, SpO2 94.00%. Constitutional: Awake, alert, cooperative, moderate apparent distress, and appears stated age. Eyes: Lids and lashes normal, pupils equal, round and reactive to light, extra ocular muscles intact, sclera clear, conjunctiva normal. ENT: Normocephalic, without obvious abnormality, atramatic, sinuses nontender on palpation, externalears without lesions, oral pharynx with moist mucus membranes, tonsils without erythema or exudates,gums normal and good dentition. Neck: Supple, symmetrical, trachea midline, no adenopathy, thyroid symmetric, not enlarged and no tenderness, skin normal. Hematologic / Lymphatic: No cervical lymphadenopathy and no supraclavicular lymphadenopathy. Back: Symmetric, no curvature, spinous processes are non-tender on palpation, paraspinous muscles are Mildly tender on palpation bilateral lumbar region, mild costal vertebral tenderness bilateral. Lungs: No increased work of breathing, good air exchange, clear to auscultation bilaterally, no crackles or wheezing. Cardiovascular: Regular rate and rhythm, normal S1 and S2, no S3 or S4, and no murmur noted. Abdomen: Scars from laparoscopic cholecystectomy , decreased bowel sounds, soft, non-distended, Tender mid epigastric and LUQ , no masses palpated, no hepatosplenomegally. Musculoskeletal: No redness, warmth, or swelling of the joints. Full range of motion noted. Motor strength is 5 out of 5 all extremities bilaterally. Tone is normal. Neurologic: Awake, alert, oriented to name, place and time. Cranial nerves II- XII are grossly intact. Motor is 5 out of 5 bilaterally. Sensory is intact. gait is normal. Neuropsychiatric: Normal affect, mood, orientation, memory and insight. Skin: No rashes, erythema, pallor, petechia or purpura. Data: Results for orders placed during the hospital encounter of 03/24/13 (from the past 24 hour(s)) CBC WITH PLATELETS DIFFERENTIAL Component Value Range WBC 11.3 (*) 4.0 - 11.0 10e9/L RBC Count 4.73 3.8 - 5.2 10e12/L Hemoglobin 15.4 11.7 - 15.7 g/dL Hematocrit 44.1 35.0 - 47.0 % MCV 93 78 - 100 fl MCH 32.6 26.5 - 33.0 pg MCHC 34.9 31.5 - 36.5 g/dL RDW 13.1 10.0 - 15.0 % Platelet Count 353 150 - 450 10e9/L Diff Method Automated Method % Neutrophils 63.2 % Lymphocytes 25.7 % Monocytes 6.0 % Eosinophils 4.4 % Basophils 0.4 % Immature Granulocytes 0.3 Absolute Neutrophil 7.2 1.6 - 8.3 10e9/L Absolute Lymphocytes 2.9 0.8 - 5.3 10e9/L Absolute Monoctyes 0.7 0.0 - 1.3 10e9/L Absolute Eosinophils 0.5 0.0 - 0.7 10e9/L Absolute Basophils 0.1 0.0 - 0.2 10e9/L Abs Immature Granulocytes 0.0 0 - 0.4 10e9/L COMPREHENSIVE METABOLIC PANEL Component Value Range Sodium 139 133 - 144 mmol/L Potassium 3.8 3.4 - 5.3 mmol/L Chloride 100 94 - 109 mmol/L Carbon Dioxide 26 20 - 32 mmol/L Anion Gap 12.4 6 - 17 mmol/L Glucose 106 (*) 60 - 99 mg/dL Urea Nitrogen 18 7 - 30 mg/dL Creatinine 0.64 0.52 - 1.04 mg/dL GFR Estimate >90 >60 mL/min/1.7m2 GFR Estimate If Black >90 >60 mL/min/1.7m2 Calcium 9.0 8.5 - 10.4 mg/dL Bilirubin Total 0.4 0.2 - 1.3 mg/dL Albumin 4.6 3.9 - 5.1 g/dL Protein Total 7.3 6.8 - 8.8 g/dL Alkaline Phosphatase 84 40 - 150 U/L ALT 46 0 - 50 U/L AST 39 0 - 45 U/L LIPASE Component Value Range Lipase 6443 (*) 20 - 250 U/L ROUTINE UA WITH MICROSCOPIC Component Value Range Color Urine Yellow Appearance Urine Clear Glucose Urine Negative NEG mg/dL Bilirubin Urine Negative NEG Ketones Urine 5 (*) NEG mg/dL Specific [place] Urine 1.020 1.003 - 1.035 Blood Urine Negative NEG pH Urine 5.5 5.0 - 7.0 pH Protein Albumin Urine 10 (*) NEG mg/dL Urobilinogen mg/dL Normal 0.0 - 2.0 mg/dL Nitrite Urine Negative NEG Leukocyte Esterase Urine Negative NEG Source Midstream Urine WBC Urine 2 0 - 2 /HPF RBC Urine 2 0 - 2 /HPF Squamous Epithelial /HPF Urine 3 (*) 0 - 1 /HPF Mucous Urine Present (*) NEG /LPF Calcium Oxalate Few (*) NEG /HPF Uric Acid Crystals Few (*) NEG /HPF HCG QUALITATIVE URINE Component Value Range HCG Qual Urine Negative NEG documented in this encounter Consult Notes Rudy Bailon, - 03/25/2013 11:38 AM CDTAssociated Order(s): GASTROENTEROLOGY IP CONSULT GASTROENTEROLOGY CONSULTATION Mariia Culver [id number] [facility] [id number] 48 year old female Admission Date/Time: 03/24/2013 Primary Care Provider: Yusef Lino Referring / Attending Physician: Dr. Ar Roach We were asked to see the patient in consultation by Dr. Roach for evaluation of acute pancreatitis. Source of information: Patient CC: Epigastric pain HPI: Mariia Culver is a 48 year old female who presents with acute onset upper abdominal pain andassociated nausea. Labs are consistent with acute pancreatitis, her lipase was over 6000 in the ER. She is scheduled to have a CT of her abdomen and pelvis later this afternoon. She states that this is her fourth episode of pancreatitis. The first episode was in approximately 1997, she was admitted to [facility] and had an ERCP with sphincterotomy. She went for several years before having her second episode and then had a third episode sometime after that. She was not hospitalized for these episodes. Her last episode was more than 12 years ago. She does not drink alcohol, she does not smoke. I have reviewed her home medications, and none of them would cause pancreatitis. She does not think her triglycerides have ever been checked. Her calciumlevel was normal. She has no family history of pancreatitis. She is status post cholecystectomy in 1992. Today she is feeling mildly improved. She still has some upper abdominal discomfort, but no nausea. She is able to get more comfortable today. She is not yet feeling hungry. She has not passed any flatus or stool yet. PAST MEDICAL HISTORY: Patient Active Problem List Diagnosis Date Noted ??? Pancreatitis 03/25/2013 Priority: High ??? Migraine headache 03/25/2013 ROS: A comprehensive ten point review of systems was negative aside from those in mentioned in the HPI. MEDICATIONS: Current Facility-Administered Medications Medication ??? ondansetron (ZOFRAN) injection 4 mg ??? naloxone (NARCAN) injection 0.1-0.4 mg ??? Lidocaine 1 % injection 1 mL ??? lidocaine 4 % (LMX4) cream ??? sodium chloride (PF) 0.9% PF flush 3 mL ??? sodium chloride (PF) 0.9% PF flush 3 mL ??? HYDROmorphone (PF) (DILAUDID) injection 0.3-0.5 mg ??? KCl 20 mEq in NaCl 0.9% 1,000 mL infusion ??? enoxaparin (LOVENOX) injection 40 mg ??? ondansetron (ZOFRAN) injection 4 mg ??? estrogens-methylTESTOSTERone (ESTRATEST HS) 0.625-1.25 MG per tablet 1 tablet ??? levothyroxine (SYNTHROID, LEVOTHROID) tablet 175 mcg ??? multivitamin, therapeutic with minerals (THERA-VIT-M) 1 tablet ??? cholecalciferol (vitamin D) tablet 2,000 Units ??? ondansetron (ZOFRAN-ODT) disintegrating tablet 4 mg ??? cdtcbzejfl-lemurpn-toikijty-codeine (FIORINAL WITH codeine) capsule 2 capsule ??? SUMAtriptan (IMITREX) injection 6 mg ??? PARoxetine (PAXIL) tablet 80 mg And ??? PARoxetine (PAXIL) tablet 10 mg ??? LORazepam (ATIVAN) injection 0.5 mg ??? ketorolac (TORADOL) injection 30 mg ??? iohexol (OMNIPAQUE) 140 mg/mL solution 50 mL ??? DISCONTD: naloxone (NARCAN) injection 0.1-0.4 mg ??? DISCONTD: PARoxetine (PAXIL) tablet 90 mg ??? DISCONTD: SUMAtriptan (IMITREX) injection 6 mg ??? DISCONTD: ondansetron (ZOFRAN) injection 4 mg ??? DISCONTD: qksamgkybt-RCPM-wredunws-codeine (FIORICET WITH codeine) per capsule 2 capsule ??? sodium chloride 0.9 % BOLUS 1,000 mL ??? HYDROmorphone (PF) (DILAUDID) injection 0.5 mg ??? ondansetron (ZOFRAN) injection 4 mg ??? DISCONTD: 0.9 % sodium chloride IV solution ALLERGIES: No Known Allergies SOCIAL HISTORY: History Substance Use Topics ??? Smoking status: Never Smoker ??? Smokeless tobacco: Never Used ??? Alcohol Use: Yes 3-4 drinks per month FAMILY HISTORY: Family History Problem Relation Age of Onset ??? C.A.D. Father ??? Respiratory Father lung fibrosis ??? Diabetes Brother ??? Diabetes Sister ??? Diabetes Brother ??? Diabetes Brother PHYSICAL EXAM: General lying comfortably in bed in no acute distress, A&Ox3 BP 104/69 Pulse 91 Temp 96.9 ??F (36.1 ??C) (Axillary) Resp 16 SpO2 94% PHYSICAL EXAM: SKIN: no suspicious lesions, rashes, jaundice, or spider angiomas HEAD: Normocephalic. No masses, lesions, tenderness or abnormalities NECK: Neck supple. No adenopathy. Thyroid symmetric, normal size,, Carotids without bruits. EYES: No scleral icterus ENT: ENT exam normal, no neck nodes or sinus tenderness RESPIRATORY: negative, Percussion normal. Good diaphragmatic excursion. Lungs clear CARDIOVASCULAR: negative, PMI normal. No lifts, heaves, or thrills. RRR. No murmurs, clicks gallops or rub GASTROINTESTINAL: hypoactive BS, soft, mild epigastric TTP, ND, no HSM, no masses/guarding/rebound JOINT/EXTREMITIES: extremities normal- no gross deformities noted, gait normal and normal muscle tone NEURO: Gait normal. Reflexes normal and symmetric. Sensation grossly WNL. PSYCH: no abnormal anxiety/depression ADDITIONAL COMMENTS: I reviewed the patient's new clinical lab test results. Recent Labs Lab Test 03/25/1363903/24/13211410/07/081944 WBC -- 11.3* 4.5 HGB -- 15.4 14.9 MCV -- 93 94 PLT 260 353 285 INR -- -- -- Recent Labs Lab Test 03/25/1363903/24/13211410/07/081944 POTASSIUM 4.1 3.8 3.7 CHLORIDE 105 100 106 CO2 27 26 26 BUN 16 18 16 ANIONGAP 8.6 12.4 10 GLUCOSE -- -- -- Recent Labs Lab Test 03/25/1363903/24/13211410/07/[id number]/07/081944 ALBUMIN 3.3* 4.6 -- 4.2 BILITOTAL 0.5 0.4 -- 0.4 BILIDIRECT -- -- -- -- ALT 45 46 -- 52* AST 34 39 -- 39 PROTEIN -- 10* 10* -- LIPASE 3178* 6443* -- 110 AMYLASE -- -- -- -- I reviewed the patient's new imaging results. CT abdomen/pelvis pending I discussed the patient plan with Dr. Rudy Bailon. ASSESSMENT: Acute, recurrent interstitial pancreatitis There is no obvious etiology, though her h/o ERCP/sphincterotomy implicates possible stricture, lesslikely stone, sludge or parenchymal etiology. She does not drink, smoke, no typical medications. Shedoes not think her cholesterol has ever been checked, so hypertriglyceridemia is a possibility. Her calcium level was normal, there is no family history of pancreatitis. Plan: -Would cancel CT scan. If no improvement in the next 72 hrs, then CT would be appropriate to look for complications (pseudocyst etc). -D/c toradol - high incidence of causing renal failure in pancreatitis pts who are usually already volume deplete -Routine pancreatitis cares - aggressive IV fluids, pain and nausea control, PPI. -Once her symptoms have improved, we can begin PO intake - consider clears tonight if decreasing useof IV narcotics. IV narcotics and diet should be mutually exclusive - once on po narcotics, could start clears. -Lipid panel. -We will arrange an outpatient endoscopic ultrasound in 6-8 weeks. Thank you for asking us to participate in the care of this patient. Jus Marks PA-C [facility] GI STAFF: I have seen and examined the patient and agree with the details of the history/exam above.Please see my changes to the assessment and plan. Rudy Bailon DO [facility] documented in this encounter ED Notes Linn Toscano RN - 03/25/2013 12:30 AM CDT Hospitalist at bedside for evaluation. Moise Roman MD - 03/24/2013 9:12 PM CDT History Chief Complaint: Abdominal Pain HPI Mariia Culver is a 48 year old female with a history of [id number]-zmcbtti pancreatitis and cholecystectomy who presents to the ED, sent from [facility], for evaluation of abdominal pain. According to the patient, this afternoon, 5-6 hours ago, she experienced an gradual onset of epigastric and left upper quadrant abdominal pain, which has since been persistent, progressively worsened, and feels similar to her previous episode of pancreatitis. It has also been associated with mild to moderate nausea. She does note that she has had a diffuse headache over the last few days, but no abdominal pain until today, as well as no recent fevers, chills, vomiting, bowel or urinary changes, in addition to no other neurologic symptoms. Here in the ER, she reports 4-5/10 epigastric and left upper quadrant abdominal pain, which is no significantly worse with movement or palpation. She denies neck, back or chest pain, but does note she has recently had neck muscle spasms and reports a history of 3 cervical vertebrae fusions. She otherwise denies recent trauma to the trunk, changes in activity, medications or foods.Of note, she also has a history of kidney stones, but does not believe this feels similar to that history. Allergies: The patient has no known drug allergies. Medications: Paxil, Imitrex, Synthroid, Estratest, Multi vitamin Past Medical/Surgical History: Pancreatitis x2, cholecystectomy, hysterectomy, 3 vertebrae fusion Family History: The patient denies any relevant family history. Marital Status: [2] Social History: Smoking status (never smoker), smokeless tobacco (no), alcohol use (no). Review of Systems Constitutional: Negative for fever and chills. HENT: Negative for neck pain. Respiratory: Negative for cough. Cardiovascular: Negative for chest pain. Gastrointestinal: Positive for nausea and abdominal pain (left upper and epigastrium, not worse by movement, palpation). Negative for vomiting, diarrhea, constipation and blood in stool. Genitourinary: Negative. Musculoskeletal: Negative for back pain. No recent trauma to the trunk Neurological: Positive for headaches (recently, not at present). Negative for dizziness, facial asymmetry, weakness, light-headedness and numbness. All other systems reviewed and are negative. Physical Exam First Vitals: BP: 115/53 mmHg Heart Rate: 109 Temp: 98.5 ??F (36.9 ??C) Resp: 16 SpO2: 99 % Physical Exam Constitutional: Oriented to person, place, and time. Appears well-developed and well-nourished. Alert. Conversant. Non toxic. HENT: Head: Atraumatic. Nose: Nose normal. Mouth/Throat: Oropharynx is clear and moist. Eyes: Conjunctivae normal and EOM are normal. Pupils are equal, round, and reactive to light. No scleral icterus. Neck: Normal range of motion. Neck supple. No tracheal deviation present. Cardiovascular: Normal rate, regular rhythm and normal heart sounds. Exam reveals no gallop and no friction rub. No murmurs heard. Symmetric radial artery pulses Pulmonary/Chest: Effort normal and breath sounds normal. No stridor. No respiratory distress. No wheezes. No rales. No rhonchi . No tenderness. Abdominal: Soft. Bowel sounds are normal. No distension. No mass. Very tender in epigastrium. There is no rebound and no guarding. Musculoskeletal: Normal range of motion. No edema. No tenderness. No deformity Lymphadenopathy: No cervical adenopathy. Neurological: Alert and oriented to person, place, and time. Normal strength. No cranial nerve deficit or sensory deficit. GCS eye subscore is 4. GCS verbal subscore is 5. GCS motor subscore is 6. Normal coordination Skin: Skin is warm and dry. No rash noted. No pallor. Normal capillary refill. Psychiatric: normal mood and affect. Emergency Department Course Laboratory: CBC with platelets differential: WBC 11.3 (high) HGB 15.4 (wnl) PLT 353 (wnl) o/w WNL BMP: glucose 106 (high) o/w WNL UA: urineketon 5 (high) squamous epithelial 3 (high) mucous (present) o/w WNL HCG Qualitative: negative Lipase: 6443 (high) ED Interventions: Sodium Chloride, 0.9% 1.0 L IV Bolus NaCl, 0.9%, 1.0 L IV Infusion Hydromorphone, 0.5 mg IV bolus Zofran, 4 mg, IV injection ED Course: I reviewed the patient's medical record. 9:55 p.m. The patient was seen and examined by myself. I discussed the course of care with the patient including laboratory and diagnostic studies. She understands and is agreeable to the plan. The patient was placed on continuous pulse oximetry and cardiac monitoring. An NPO order was given. Rechecked the patient, findings and plan explained to the patient, who consents to admission. Discussed the patient with the hospitalist, who will admit the patient to a monitored bed for further observation, evaluation, and treatment. Impression & Plan Medical Decision Making: Mariia Culver is a 48 year old female who came in with epigastric pain radiating into the back that was similar in nature to history of pancreatitis. Labs confirm pancreatitis. She is already statuspost cholecystectomy, has had no bloody stools to indicate colitis, GI bleed or peptic ulcer disease. She has no pulsatile abdominal mass to represent AAA. The pain has been present for a couple of days and has not been migrating to the RLQ, so would doubt appendicitis. Therefore, we did not pursue imaging here. To help symptoms, we gave the above symptoms, but still had some ongoing discomfort. I discussed admission versus outpatient management with patient and family, and given severity of pain, recommended admission. They agreed. Dr. Prabhakar with the hopsitalist service was contacted and accepted the admission. Considering of causes of pancreatitis would include alcohol, although she denies use of this lately, gallstones, although had a cholecystectomy, as well as hypertriglyceridemia, but reports no history of this. I would also doubt retained gallstone as this is her third bout of pancreatitis. Diagnosis: 1. Pancreatitis I, Sasha Bee, am serving as a scribe at 9:55 PM on 03/24/2013 to document services personally performed by Dr. Roman based on my observations and the provider's statements to me. Haja Michel 03/24/2013 [facility] EMERGENCY DEPARTMENT Moise Roman MD 03/25/13 0208 Jose M Toscano RN - 03/24/2013 8:51 PM CDT Abdominal pain upper abdomen radiating to the left, just started this afternoon. Feels like my other episodes of pancreatitis. Sent to ED by [facility] for further evaluation. documented in this encounter Miscellaneous Notes Plan of Care - Sharon Alberts RN - 03/30/2013 7:01 AM CDT Problem: IP GENERAL POC-ADULT,OB,BEHAVIORAL FVCPM Goal: Plan of Care Review (Adult,OB,Behavioral) The patient and/or their account maintenance representative will communicate an understanding of their plan of care. Vss, afebrile, lung sounds diminished, up independently in room, hypo bowel sounds, passing flatus, abd pain starts in epigastric area and radiates around to back, also having migraine pain, requestingIV pain meds as well as IV ativan for nausea, tolerating low fat diet, lipase WNL,abd CT negative for pancreatitis, home when pain gone and tolerating low fat diet Plan of Care - Tita Edwards RN - 03/29/2013 10:38 PM CDT Problem: IP GENERAL POC-ADULT,OB,BEHAVIORAL FVCPM Goal: Individualization/Patient-Specific Goal (Adult,OB,Behavioral The patient and/or their account maintenance representative will achieve their patient-specific goals related to the plan of care. The patient-specific goals include: Outcome: No Change CT scan shows no evidence of pancreatitis, pt's diet advanced to low fat. Pt continues to c/o pain and nausea requiring IV dilaudid and IV ativan. She tolerated her diet without increased pain or nausea even though she has c/o pain and nausea all shift. Anticipate dc to home as soon as pain is controlled with oral pain meds. Initial Assessments - Axel Correa MD - 03/29/2013 8:38 PM CDT Plan of Care - Eduarda Arroyo RN - 03/29/2013 3:39 PM CDT Problem: IP GENERAL POC-ADULT,OB,BEHAVIORAL FVCPM Goal: Individualization/Patient-Specific Goal (Adult,OB,Behavioral The patient and/or their account maintenance representative will achieve their patient-specific goals related to the plan of care. The patient-specific goals include: Outcome: No Change Up in room ----- states pain remains in abd radiating to back----- npo C/o nausea meds as needed Plan of Care - Sharon Alberts RN - 03/29/2013 4:38 AM CDT Problem: IP GENERAL POC-ADULT,OB,BEHAVIORAL FVCPM Goal: Plan of Care Review (Adult,OB,Behavioral) The patient and/or their account maintenance representative will communicate an understanding of their plan of care. Vss, afebrile, lung sounds diminished, up independently in room, hypo bowel sounds, passing flatus, abd pain starts in epigastric area and radiates around to back, also having migraine pain--medicated with available meds for pain, denies any nausea, tolerating clears, lipase WNL, home when pain gone and tolerating low fat diet Plan of Care - Carolyn Lockwood RN - 03/28/2013 10:48 PM CDT Problem: IP GENERAL POC-ADULT,OB,BEHAVIORAL FVCPM Goal: Individualization/Patient-Specific Goal (Adult,OB,Behavioral The patient and/or their account maintenance representative will achieve their patient-specific goals related to the plan of care. The patient-specific goals include: Outcome: No Change Pt having clears with some nausea. No relief with zofran, minimal relief with ativan. Pt having lotsof pain both abdominal and back and migraine. Minimal relief with dilaudid. Up ad chapito. Pt showered. Hoping to dc tomorrow. Plan of Care - Eduarda Arroyo RN - 03/28/2013 2:52 PM CDT Problem: Pancreatitis, Acute/Chronic (Adult, Obstetrics) Goal: Prevent/Manage Potential Problems Outcome: No Change Co of pain and nausea ---medicated as needed--- appetite good-- activity encouraged Plan of Care - Annalisa Barron RN - 03/28/2013 6:53 AM CDT Problem: IP GENERAL POC-ADULT,OB,BEHAVIORAL FVCPM Goal: Individualization/Patient-Specific Goal (Adult,OB,Behavioral The patient and/or their account maintenance representative will achieve their patient-specific goals related to the plan of care. The patient-specific goals include: Outcome: Improving Pt only requesting PRN pain medication for LEFT abd pain x1 this shift for (5/10 pain). Slept well t/o night. BM last night. Adequate UOP. VSS. Denies nausea. Indpt with activity in room. States she is hungry and looking forward to going home. Gastroenterology to consult today. Annalisa Barron, MARCELA [employer] Staff[employer] Nurse Plan of Care - Cora Fitzgerald RN - 03/27/2013 11:05 PM CDT Problem: IP GENERAL POC-ADULT,OB,BEHAVIORAL FVCPM Goal: Individualization/Patient-Specific Goal (Adult,OB,Behavioral The patient and/or their account maintenance representative will achieve their patient-specific goals related to the plan of care. The patient-specific goals include: Pt c/o pain 8/10 and takes Dil 0.5 q 2 hrs and Ativan 0.5 q 4 hrs. Also takes Fiorinal for GALINDO. C/o of discomfort at IV site but good blood return and flushes fine. No redness or edema at or around site. Not cool to touch. Pt keeps palpating the site which seems to be creating discomfort. Showered. LS clear. BS present. NPO X sips w/ meds Plan of Care - Eduarda Arroyo RN - 03/27/2013 3:31 PM CDT Problem: Pancreatitis, Acute/Chronic (Adult, Obstetrics) Goal: Prevent/Manage Potential Problems Outcome: No Change C/o pain in abd wrapping around to back------ nausea Medicated understands NPO--up independtly Plan of Care - Sharon Alberts RN - 03/27/2013 6:25 AM CDT Problem: IP GENERAL POC-ADULT,OB,BEHAVIORAL FVCPM Goal: Plan of Care Review (Adult,OB,Behavioral) The patient and/or their account maintenance representative will communicate an understanding of their plan of care. Pt pulled out IV and requested not to have another placed, up independently in room, medicated for pain x1, pain consistently 6-7/10 but appears to be comfortable and is able to sleep, tolerating full liquids without difficulty, +bowell sounds, passing flatus, lipase trending down, possible d/c today Plan of Care - Ashley Garrison - 03/26/2013 11:08 PM CDT Problem: IP GENERAL POC-ADULT,OB,BEHAVIORAL FVCPM Goal: Individualization/Patient-Specific Goal (Adult,OB,Behavioral The patient and/or their account maintenance representative will achieve their patient-specific goals related to the plan of care. The patient-specific goals include: Pts pain never goes below 5-6 but she is able to walk in halls, sleep, and states she is at acceptable level of comfort after oral meds. She does ask that we bring in pain meds as soon as they are due.No nausea. Tolerating fulls. Plan of Care - Delmy Ivory RN - 03/26/2013 1:53 PM CDT Problem: IP GENERAL POC-ADULT,OB,BEHAVIORAL FVCPM Goal: Plan of Care Review (Adult,OB,Behavioral) The patient and/or their account maintenance representative will communicate an understanding of their plan of care. Outcome: Improving VSS, on RA Nauseous X1 at 0730, Ativan given and no complaints since D/C'd MED SURG NURSE at 1000, PO Oxycodone and Atarax given- rating pain 5/10 Clear liq diet for breakfast and lunch- tolerating well. Plans for full liq for dinner. Voiding well Plan of Care - Di Mckeon RN - 03/26/2013 7:50 AM CDT Problem: IP GENERAL POC-ADULT,OB,BEHAVIORAL FVCPM Goal: Individualization/Patient-Specific Goal (Adult,OB,Behavioral The patient and/or their account maintenance representative will achieve their patient-specific goals related to the plan of care. The patient-specific goals include: Outcome: No Change Pt c/o headache 7-06/03 Fiorinal was given twice,pt used 1.7 mg of IV dilaudid via MED SURG NURSE, abdominal pain was minimal and denied nausea.LS diminished,BS+,flatus +,voided adequately,VSS. Plan of Care - Delmy Ivory RN - 03/25/2013 4:06 PM CDT Problem: IP GENERAL POC-ADULT,OB,BEHAVIORAL FVCPM Goal: Individualization/Patient-Specific Goal (Adult,OB,Behavioral The patient and/or their account maintenance representative will achieve their patient-specific goals related to the plan of care. The patient-specific goals include: Outcome: Improving VSS, on RA Pain 7-8, IVP Dilaudid q1h, initiated MED SURG NURSE at 1440. Independent to bathroom NPO with ice chips Pharmacy-Admission Medication History - Earnest Salazar [facility] - 03/25/2013 12:00 AM CDT Admission medication history interview status for this patient is complete. See [facility] [facility] nav[facility] for allergy information, prior to admission medications and immunization status. Medication history interview source(s):Patient Medication history resources (including written lists, pill bottles, clinic record):None Changes made to ANTHROPOLOGIST medication list: Added: none Deleted: none Changed: none Actions taken by pharmacist (provider contacted, etc):None Additional medication history information:None Medication reconciliation/reorder completed by provider prior to medication history? No Prior to Admission Medications Medication Last Dose Informant Patient Reported? Taking? multivitamin, therapeutic with minerals (MULTI-VITAMIN) TABS 03/24/2013 Yes Yes Take 1 tablet by mouth daily. PARoxetine HCl (PAXIL PO) 03/24/2013 Yes Yes Take 90 mg by mouth daily. Patient takes 3 tabs of 30mg=90mg Levothyroxine Sodium (SYNTHROID PO) 03/24/2013 Yes Yes Take 175 mcg by mouth daily. estrogens-methylTESTOSTERone (ESTRATEST HS) 0.625-1.25 MG per tablet 03/24/2013 at Unknown Yes Yes Take 1 tablet by mouth daily. VITAMIN D, CHOLECALCIFEROL, PO 03/24/2013 Yes Yes Take 2,000 Units by mouth daily. SUMAtriptan Succinate Refill (IMITREX STATDOSE REFILL) 6 MG/0.5ML SOLN 03/24/2013 at Unknown Yes Yes Inject 6 mg Subcutaneous once. May repeat in 1 hr as needed, do not exceed 2 doses per 24hrs documented in this encounter Plan of Treatment Not on filedocumented as of this encounter Procedures Procedure Name Priority Date/Time Associated Comments Diagnosis CT ABDOMEN PELVIS W 03/29/2013 1:52 PM Re sults for this CONTRAST CDT procedure are i n the results section. PLATELET COUNT Routine 03/28/2013 7:05 AM Results for this CDT procedure are i n the results section. LIPASE Routine 03/28/2013 7:05 AM Results f or this CDT procedure are i n the results section. BASIC METABOLIC PANEL Routine 03/28/2013 7:05 AM Results for this CDT procedure are i n the results section. LIPASE Routine 03/27/2013 6:54 AM Results f or this CDT procedure are i n the results section. LIPASE Routine 03/26/2013 6:25 AM Results f or this CDT procedure are i n the results section. BASIC METABOLIC PANEL Routine 03/26/2013 6:25 AM Results for this CDT procedure are i n the results section. CBC WITH PLATELETS Routine 03/26/2013 6:25 AM Res ults for this CDT procedure are i n the results section. LIPID REFLEX TO DIRECT Routine 03/25/2013 12:26 R esults for this LDL PANEL PM CDT procedure are i n the results section. PLATELET COUNT Routine 03/25/2013 6:40 AM Results for this CDT procedure are i n the results section. LIPASE Routine 03/25/2013 6:40 AM Results f or this CDT procedure are i n the results section. COMPREHENSIVE Routine 03/25/2013 6:40 AM Results for this METABOLIC PANEL CDT procedure ar e in the results section. HCG QUALITATIVE URINE STAT 03/24/2013 9:15 PM Results for this CDT procedure are i n the results section. CBC WITH PLATELETS & STAT 03/24/2013 9:15 PM R esults for this DIFFERENTIAL CDT procedure are i n the results section. ROUTINE UA WITH STAT 03/24/2013 9:15 PM Result s for this MICROSCOPIC CDT procedure are i n the results section. LIPASE STAT 03/24/2013 9:15 PM Results f or this CDT procedure are i n the results section. COMPREHENSIVE STAT 03/24/2013 9:15 PM Results for this METABOLIC PANEL CDT procedure ar e in the results section. documented in this encounter Results CT Abdomen Pelvis w Contrast (03/29/2013 1:52 PM CDT) Anatomical Region Laterality Modality Abdomen/Pelvis, SUBRAD CT BODY, UMP CT ABDOMEN PELVIS Computed Tomography Specimen (Source) Anatomical Collection Method Collection Time Re ceived Time Location / / Volume Laterality 03/29/2013 1:52 PM CDT Impressions 03/29/2013 4:40 PM CDT IMPRESSION: 1. No complications of pancreatitis iden tified. 2. Several bibasilar indeterminate pulmo nary nodules. Recommend follow-up CT chest in three months. The largest is 0.8 cm at the right lower lobe. Any older comparison e xams would be useful. 3. Nonobstructing multiple bilateral int rarenal stones. ROXANNE CALLEJAS MD Narrative 03/29/2013 4:[address] ABDOMEN/PELVIS WITH CONTRAST 03/29/2013 1:52 PM HISTORY: Pancreatitis. Evaluate pseudocy st. Cholecystectomy and hysterectomy. TECHNIQUE: CT abdomen and pelvis with 97 mL Optiray-320 IV. COMPARISON: None. FINDINGS: There are a few small bibasila r pulmonary nodules. Subpleural nodule measuring 0.8 cm poste rior right lower lobe on series 2, image 14. An adjacent smaller nodule is also seen in this location. Lateral right lung base nodule is 0.3 cm on image 8. Linear right middle lobe nodule is 0.3 cm on im age 3. Small subpleural 0.4 cm nodule posterior left lower lobe, terell ge 16. Pancreas appears to enhance homogenously. No evidence for pa ncreatic necrosis. No inflammatory change of the pancreas is d emonstrated. No focal fluid collections identified. No acute bowel a bnormalities. Cholecystectomy. Hysterectomy. Postcontr ast appearance of the liver, spleen, and adrenals are unremarkable. A few nonobstructing stones suggested within each kidney. One of the larger calcifications is 0.4 cm at the lower right kidney on image 43 . There are numerous intrarenal calcifications on the right. Several small calcifications on the left as well. Low dense lesion at the upper pole right kidney is consistent with a cyst on image 33. N o acute aortic abnormality. No enlarged lymph nodes. Procedure Note Roxanne Callejas MD - 03/29/2013Forma tting of this note might be different from the original. CT ABDOMEN/PELVIS WITH CONTRAST 03/29/2013 1:52 PM HISTORY: Pancreatitis. Evaluate pseudocy st. Cholecystectomy and hysterectomy. TECHNIQUE: CT abdomen and pelvis with 97 mL Optiray-320 IV. COMPARISON: None. FINDINGS: There are a few small bibasila r pulmonary nodules. Subpleural nodule measuring 0.8 cm poste rior right lower lobe on series 2, image 14. An adjacent smaller nodule is also seen in this location. Lateral right lung base nodule is 0.3 cm on image 8. Linear right middle lobe nodule is 0.3 cm on im age 3. Small subpleural 0.4 cm nodule posterior left lower lobe, terell ge 16. Pancreas appears to enhance homogenously. No evidence for pa ncreatic necrosis. No inflammatory change of the pancreas is d emonstrated. No focal fluid collections identified. No acute bowel a bnormalities. Cholecystectomy. Hysterectomy. Postcontr ast appearance of the liver, spleen, and adrenals are unremarkable. A few nonobstructing stones suggested within each kidney. One of the larger calcifications is 0.4 cm at the lower right kidney on image 43 . There are numerous intrarenal calcifications on the right. Several small calcifications on the left as well. Low dense lesion at the upper pole right kidney is consistent with a cyst on image 33. N o acute aortic abnormality. No enlarged lymph nodes. IMPRESSION IMPRESSION: 1. No complications of pancreatitis iden tified. 2. Several bibasilar indeterminate pulmo nary nodules. Recommend follow-up CT chest in three months. The largest is 0.8 cm at the right lower lobe. Any older comparison e xams would be useful. 3. Nonobstructing multiple bilateral int rarenal stones. ROXANNE CALLEJAS MD Corky Casas MD IMG CT ORDERABLES Platelet count (03/28/2013 7:05 AM CDT) athologist Signature Platelet Count 314 150 - [address] LAB Specimen Anatomical Collection Method Collection Time Receive d Time (Source) Location / / Volume Laterality Blood specimen 03/28/2013 7:05 AM 013 7:29 (specimen) CDT AM CDT Juana Azar MD LAB - BLOOD ORDERABLES Performing Organization Address City/[facility]/ZIP Code Phon e Number [address] [facility] Lipase (03/28/2013 7:05 AM CDT) athologist Signature Lipase 182 20 - 250 [facility] LAB Specimen Anatomical Collection Method Collection Time Receive d Time (Source) Location / / Volume Laterality Blood specimen 03/28/2013 7:05 AM 013 7:29 (specimen) CDT AM CDT Corky Casas MD LAB - BLOOD ORDERABLES Performing Organization Address City/[facility]/ZIP [facility] Phon e Number [place] [address] [place], [place] [address] [facility] (ABNORMAL) Basic metabolic panel (03/28/2013 7:05 AM CDT) athologist Signature Sodium 141 133 - 144 [place] mmol/L [facility] Potassium 3.9 3.4 - 5.3 [place] mmol/L [facility] Chloride 103 94 - 109 [place] mmol/L [facility] Carbon Dioxide 29 20 - 32 [place] mmol/L [facility] Anion Gap 8.8 6 - 17 [place] mmol/L [facility] Glucose 105 (H) 60 - 99 [place] mg/dL [facility] Urea Nitrogen 6 (L) 7 - 30 [place] mg/dL [facility] Creatinine 0.57 0.52 - [place] 1.04 mg/dL [facility] LAB GFR Estimate >90 >60 [place] mL/min/1.[address] LAB GFR Estimate If >90 >60 [place] Black mL/min/1.[address] [place] [address] LAB Calcium 8.5 8.5 - 10.4 [place] mg/dL [facility] LAB Specimen Anatomical Collection Method Collection Time Receive d Time (Source) Location / / Volume Laterality Blood specimen 03/28/2013 7:05 AM 013 7:29 (specimen) CDT AM CDT Corky Casas MD LAB - BLOOD ORDERABLES Performing Organization Address City/State/ZIP Code Phon e Number [facility] [address] [place], [place] [address] [facility] (ABNORMAL) Lipase (03/27/2013 6:54 AM CDT) athologist Signature Lipase 448 (H) 20 - 250 [place] U/L [facility] LAB Specimen Anatomical Collection Method Collection Time Receive d Time (Source) Location / / Volume Laterality Blood specimen 03/27/2013 6:54 AM 013 7:04 (specimen) CDT AM CDT Ar Roach DO LAB - BLOOD ORDERABLES Performing Organization Address City/[facility]/ZIP [facility] Phon e Number M [facility] [address] [place], [place] [address] [facility] CBC with platelets (03/26/2013 6:25 AM CDT) athologist Signature WBC 5.8 4.0 - 11.0 [place] 10e9/L [facility] RBC Count 4.02 3.8 - 5.2 [place] 10e12/L [facility] Hemoglobin 12.9 11.7 - [place] 15.7 g/dL [facility] Hematocrit 38.4 35.0 - [place] 47.0 % [facility] MCV 96 78 - 100 [facility] LAB MCH 32.1 26.5 - [place] 33.0 pg [facility] MCHC 33.6 31.5 - [place] 36.5 g/dL [facility] RDW 13.1 10.0 - [place] 15.0 % [facility] Platelet Count 268 150 - [address] LAB Specimen Anatomical Collection Method Collection Time Receive d Time (Source) Location / / Volume Laterality Blood specimen 03/26/2013 6:25 AM 013 6:46 (specimen) CDT AM CDT Ar Roach DO LAB - BLOOD ORDERABLES Performing Organization Address City/State/ZIP Code Phon e Number M [place] [address] [place], [place] [address] [facility] (ABNORMAL) Basic metabolic panel (03/26/2013 6:25 AM CDT) athologist Signature Sodium 141 133 - [address] [facility] mmol/L [facility] LAB Potassium 4.6 3.4 - 5.[address] [facility] mmol/L [facility] Comment: Specimen slightly hemolyzed, po tassium may be falsely elevated Chloride 106 94 - 109 mmol/L [facility] LAB Carbon Dioxide 24 20 - 32 mmol/L [facility] LAB Anion Gap 10.9 6 - 17 mmol/L [facility] LAB Glucose 68 60 - 99 mg/dL [facility] LAB Urea Nitrogen 9 7 - 30 mg/dL [facility] LAB Creatinine 0.48 (L) 0.52 - 1.04 mg/dL [facility] LAB GFR Estimate >90 >60 mL/min/1.7m2 [place] R [facility] LAB GFR Estimate If Black >90 >60 mL/min/1.7m2 F [facility] LAB Calcium 8.0 (L) 8.5 - 10.4 mg/dL [facility] LAB Specimen Anatomical Collection Method Collection Time Receive d Time (Source) Location / / Volume Laterality Blood specimen 03/26/2013 6:25 AM 013 6:46 (specimen) CDT AM CDT Ar Roach DO LAB - BLOOD ORDERABLES Performing Organization Address City/[facility]/ZIP [facility] Phon e Number [facility] [address] [place], [place] [address] [facility] (ABNORMAL) Lipase (03/26/2013 6:25 AM CDT) athologist Signature Lipase 1,172 (H) 20 - 250 [place] U/L [facility] Comment: Reviewed, acceptable Specimen Anatomical Collection Method Collection Time Receive d Time (Source) Location / / Volume Laterality Blood specimen 03/26/2013 6:25 AM 013 6:46 (specimen) CDT AM CDT Ar Roach LAB - BLOOD ORDERABLES Performing Organization Address City/[facility]/ZIP Code Phon e Number [facility] [address] [place], [place] [address] [facility] (ABNORMAL) Lipid panel reflex to direct LDL (03/25/2013 12:26 PM CDT) athologist Signature Cholesterol 169 0 - 200 [place] mg/dL [facility] Comment: LDL Cholesterol is the primary guide to therapy. The NCEP recommends further evaluation of: patients with cholesterol greater than 200 mg/dL if additional risk facto rs are present, cholesterol greater than 240 mg/dL, triglycerides greater than 1 50 mg/dL, or HDL less than 40 mg/dL. Triglycerides 128 0 - 150 mg/dL [facility] LAB HDL Cholesterol 37 (L) 50 - 110 mg/dL [facility] LAB LDL Cholesterol Calculated 106 0 - 129 mg/dL [facility] LAB Comment: LDL Cholesterol is the primary guide to therapy: LDL-cholesterol goal in high risk patients is <100 mg/dL and in very high risk patients is <70 mg/dL. VLDL-Cholesterol 26 0 - 30 mg/dL [facility] LAB Cholesterol/HDL Ratio 4.6 0.0 - 5.0 [facility] LAB Specimen Anatomical Collection Method Collection Time Receive d Time (Source) Location / / Volume Laterality Blood specimen 03/25/2013 12:26 3 (specimen) PM CDT 12:47 PM CDT Jus Marks PA-C LAB - BLOOD ORDERABLES Performing Organization Address City/State/ZIP Code Phon e Number [place] [address] [address] [place], [place] [address] [facility] (ABNORMAL) Comprehensive metabolic panel (03/25/2013 6:40 AM CDT) Analysis Performed At Patho logist Time Signature Sodium 141 133 - 144 [place] mmol/L [facility] Potassium 4.1 3.4 - 5.3 [place] mmol/L [facility] Chloride 105 94 - 109 [place] mmol/L [facility] Carbon Dioxide 27 20 - 32 [place] mmol/L [facility] Anion Gap 8.6 6 - 17 [place] mmol/L [facility] Glucose 84 60 - 99 [place] mg/dL [facility] Urea Nitrogen 16 7 - 30 [place] mg/dL [facility] Creatinine 0.61 0.52 - COUNT INCLUDES [facility] 1.[facility] mg/dL [facility] LAB GFR Estimate >90 >60 [place] mL/min/1.[address] LAB GFR Estimate If >90 >60 [place] Black mL/min/1.[address] LAB Calcium 7.8 (L) 8.5 - 10.4 [place] mg/dL [facility] LAB Bilirubin Total 0.5 0.2 - 1.3 [place] mg/dL [facility] Albumin 3.3 (L) 3.9 - 5.1 [place] g/dL [facility] Protein Total 5.7 (L) 6.8 - 8.8 [place] g/dL [facility] Alkaline 62 40 - 150 [place] Phosphatase U/L [facility] ALT 45 0 - 50 U/L [facility] AST 34 0 - 45 U/L [facility] LAB Specimen Anatomical Collection Method Collection Time Receive d Time (Source) Location / / Volume Laterality Blood specimen 03/25/2013 6:40 AM 013 7:17 (specimen) CDT AM CDT Juana Azar MD LAB - BLOOD ORDERABLES Performing Organization Address [facility] Phon e Number [facility] [address] [place], [place] [address] [facility] Platelet count (03/25/2013 6:40 AM CDT) athologist Signature Platelet Count 260 150 - [address] LAB Specimen Anatomical Collection Method Collection Time Receive d Time (Source) Location / / Volume Laterality Blood specimen 03/25/2013 6:40 AM 013 7:17 (specimen) CDT AM CDT Juana Azar MD LAB - BLOOD ORDERABLES Performing Organization Address [facility] Phon e Number [facility] [address] [place], [place] [address] [facility] (ABNORMAL) Lipase (03/25/2013 6:40 AM CDT) athologist Signature Lipase 3,178 (H) 20 - 250 [facility] LAB Comment: Specimen run with a dilution Specimen Anatomical Collection Method Collection Time Receive d Time (Source) Location / / Volume Laterality Blood specimen 03/25/2013 6:40 AM 013 7:17 (specimen) CDT AM CDT Juana Azar MD LAB - BLOOD ORDERABLES Performing Organization Address City/[facility] Phon e Number [facility] [address] [place], [place] [address] [facility] HCG qualitative urine (03/24/2013 9:15 PM CDT) athologist Signature HCG Qual Urine Negative NEG [facility] LAB Specimen Anatomical Collection Method Collection Time Receive d Time (Source) Location / / Volume Laterality Urine specimen URINE SPECIMEN 03/24/2013 9:15 PM 03/24 9:59 (specimen) OBTAINED BY CLEAN CDT PM CDT CATCH PROCEDURE / Unknown Moise Roman MD LAB - URINE ORDERABLES Performing Organization Address City/[facility]/ZIP Code Phon e Number M [facility] [address] [place], [place] [address] [facility] (ABNORMAL) UA with Microscopic (03/24/2013 9:15 PM CDT) [facility] Method Time Signature Color Urine Yellow [facility] LAB Appearance Urine Clear [facility] Glucose Urine Negative NEG mg/dL [facility] Bilirubin Urine Negative NEG [facility] Ketones Urine 5 (A) NEG mg/dL [facility] Specific [place] 1.020 1.003 - [place] Urine 1.035 [facility] Blood Urine Negative NEG [facility] LAB pH Urine 5.5 5.0 - 7.0 [place] pH [facility] Protein Albumin 10 (A) NEG mg/dL [facility] LAB Urobilinogen Normal 0.0 - 2.0 [place] mg/dL mg/dL [facility] Nitrite Urine Negative NEG [facility] Leukocyte Negative NEG [place] Esterase Urine [facility] Source Midstream [facility] LAB WBC Urine 2 0 - 2 [place] /[facility] LAB RBC Urine 2 0 - 2 [place] /[facility] LAB Squamous 3 (H) 0 - 1 [place] Epithelial /HPF /HPF [facility] LAB Mucous Urine Present (A) NEG /LPF [facility] Calcium Oxalate Few (A) NEG /HPF [facility] Uric Acid Few (A) NEG /HPF [place] Crystals [facility] LAB Specimen Anatomical Collection Method Collection Time Receive d Time (Source) Location / / Volume Laterality Urine specimen URINE SPECIMEN 03/24/2013 9:15 PM 03/24 9:59 (specimen) OBTAINED BY CLEAN CDT PM CDT CATCH PROCEDURE / Unknown Moise Roman MD LAB - URINE ORDERABLES Performing Organization Address City/State/ZIP Code Phon janneth Alan [facility] [address] [place], [place] [address] [facility] (ABNORMAL) Lipase (03/24/2013 9:15 PM CDT) P athologist Signature Lipase 6,443 (H) 20 - 250 [place] U/L [facility] Comment: Specimen run with a dilution Specimen Anatomical Collection Method Collection Time Receive d Time (Source) Location / / Volume Laterality Blood specimen 03/24/2013 9:15 PM 013 9:57 (specimen) CDT PM CDT Moise Roman MD LAB - BLOOD ORDERABLES Performing Organization Address City/[facility] Code Phon janneth Alan [facility] [address] [place], [place] [address] [facility] (ABNORMAL) Comprehensive metabolic panel (03/24/2013 9:15 PM CDT) Analysis Performed At Patho logist Time Signature Sodium 139 133 - 144 [place] mmol/L [facility] Potassium 3.8 3.4 - 5.3 [place] mmol/L [facility] Chloride 100 94 - 109 [place] mmol/L [facility] Carbon Dioxide 26 20 - 32 [place] mmol/L [facility] Anion Gap 12.4 6 - 17 [place] mmol/L [facility] Glucose 106 (H) 60 - 99 [place] mg/dL [facility] Urea Nitrogen 18 7 - 30 [place] mg/dL [facility] Creatinine 0.64 0.52 - COUNT [facility]ES [facility] 1.04 mg/dL [facility] GFR Estimate >90 >60 [place] mL/min/1.[address] LAB GFR Estimate If >90 >60 [place] Black mL/min/1.[address] LAB Calcium 9.0 8.5 - 10.4 [place] mg/dL [facility] Bilirubin Total 0.4 0.2 - 1.3 [place] mg/dL [facility] Albumin 4.6 3.9 - 5.1 [place] g/dL [facility] Protein Total 7.3 6.8 - 8.8 [place] g/dL [facility] Alkaline 84 40 - 150 [place] Phosphatase U/L [facility] ALT 46 0 - 50 U/L [facility] AST 39 0 - 45 U/L [facility] LAB Specimen Anatomical Collection Method Collection Time Receive d Time (Source) Location / / Volume Laterality Blood specimen 03/24/2013 9:15 PM 013 9:57 (specimen) CDT PM CDT Moise Roman MD LAB - BLOOD ORDERABLES Performing Organization Address City/State/ZIP Code Phon e Number M [facility] [address] [place], [place] [address] [facility] (ABNORMAL) CBC with platelets differential (03/24/2013 9:15 PM CDT) [facility] Method Time Signature WBC 11.3 (H) 4.0 - [place] 11.0 [facility] 10e9/[facility] LAB RBC Count 4.73 3.8 - 5.2 [place] 10e12/L [facility] Hemoglobin 15.4 11.7 - [place] 15.7 g/dL [facility] Hematocrit 44.1 35.0 - [place] 47.0 % [facility] MCV 93 78 - 100 [place] fl [facility] MCH 32.6 26.5 - COUNT [facility]CLUDES [facility] 33.0 pg [facility] MCHC 34.9 31.5 - [place] 36.5 g/dL [facility] RDW 13.1 10.0 - [place] 15.0 % [facility] Platelet Count 353 150 - 450 [place] 10e9/L [facility] Diff Method Automated [facility] LAB % Neutrophils 63.2 % [facility] % Lymphocytes 25.7 % [facility] % Monocytes 6.0 % [facility] % Eosinophils 4.4 % [facility] % Basophils 0.4 % [facility] % Immature 0.3 % [place] Granulocytes [facility] Absolute 7.2 1.6 - 8.3 [place] Neutrophil 10e9/L [facility] Absolute 2.9 0.8 - 5.3 [place] Lymphocytes 10e9/L [facility] Absolute 0.7 0.0 - 1.3 [place] Monocytes 10e9/L [facility] Absolute 0.5 0.0 - 0.7 [place] Eosinophils 10e9/L [facility] Absolute 0.1 0.0 - 0.2 [place] Basophils 10e9[facility] Abs Immature 0.0 0 - 0.4 [place] Granulocytes [address] [place] [address] LAB Specimen Anatomical Collection Method Collection Time Receive d Time (Source) Location / / Volume Laterality Blood specimen 03/24/2013 9:15 PM 013 9:57 (specimen) CDT PM CDT Moise Roman MD LAB - BLOOD ORDERABLES Performing Organization Address City/State/ZIP Code Phon e Number M [facility] [address] [place], [place] [address] [facility] documented in this encounter Visit Diagnoses Diagnosis Pancreatitis - Primary Acute pancreatitis Pancreatitis Acute pancreatitis Pain Generalized pain Dietary supplement discontinued Nausea Nausea alone Dyspepsia Dyspepsia and other specified disorders of function of stomach Migraine headache Migraine, unspecified, without mention o f intractable migraine without mention of status migrainosus documented in this encounter Administered Medications Inactive Administered Medications - up to 3 most recent administrations Medication Order MAR Action Action Date Dose Rate Site 0.9 % sodium chloride IV New Bag 03/25/2013 3:03 AM CDT 1,000 mLs 125 mL/hr solution at 125 mL/hr, Intravenous, CONTINUOUS, Administer after the bolus., Starting on Wed03/24/13 at 2200, Until 03/25/13 at 0342 New Bag 03/24/2013 10:00 PM CDT 1,000 mLs 125 mL/hr acetaminophen (TYLENOL) tablet 650 mg Given 03/27/2013 12:31 AM CDT 650 mg 650 mg, Oral, EVERY 4 HOURS PRN, mild pain, Starting on Wed03/26/13 at 0948, Maximum acetaminophen dose from all sources = 75 mg/kg/day not to exceed 4 grams/day. Given 03/26/2013 7:32 PM CDT 650 mg ljcloyesro-hnbcwer-atzevbdl-codeine (FIORINAL Given 8:45 PM 2 capsules WITH codeine) capsule 2 capsule CDT 2 capsule, Oral, EVERY 4 HOURS PRN, headaches, Starting on 6/1/13 at 0407 Given 03/29/2013 1:33 AM CDT 2 capsules Given 03/28/2013 5:46 PM CDT 2 capsules cholecalciferol (vitamin D) tablet 2,000 Given 013 8:42 AM CDT 2,000 Units Units 2,000 Units, Oral, DAILY, First dose on 03/25/13 at 0900 Given 03/29/2013 8:52 AM CDT 2,000 Units Given 03/28/2013 9:25 AM CDT 2,000 Units dextrose 5 % and 0.45 % NaCl + Rate/Dose Verify 03/27/2013 11:30 PM CDT 30 mL/hr KCl 20 mEq/L at 50 mL/hr, Intravenous, CONTINUOUS, Starting on Wed03/27/13 at 1145, Until Wed03/28/13 at 0808 New Bag 03/27/2013 7:48 PM CDT 125 mL/hr New Bag 03/27/2013 12:23 PM CDT 125 mL/hr dextrose 5 % and 0.45 % NaCl + Rate/Dose Verify 03/30/2013 12:43 AM CDT 50 mL/hr KCl 20 mEq/L at 50 mL/hr, Intravenous, CONTINUOUS, Starting on Wed03/28/13 at 0815, Until Prema 03/30/13 at 1550 New Bag 03/29/2013 3:01 PM CDT 50 mL/hr Rate/Dose Verify 03/29/2013 7:19 AM CDT 50 mL/hr diphenhydrAMINE (BENADRYL) injection 25 mg Given 03/28/2013 8:23 PM CDT 25 mg 25 mg, Intravenous, EVERY 6 HOURS PRN, itching, Starting on Wed03/25/13 at 1312 enoxaparin (LOVENOX) injection Given 03/30/2013 7:52 AM CDT 40 m g Abdominal Tissue 40 mg 40 mg, Subcutaneous, EVERY 24 HOURS, First dose on Wed03/25/13 at 0800, HOLD if platelet count falls below 50% of baseline or < 100,000 / ??L and notify . Given 03/29/2013 8:51 AM CDT 40 mg Given 03/28/2013 9:22 AM CDT 40 mg estrogens-methylTESTOSTERone (ESTRATEST HS) Given 03/2013 8:42 AM CDT 1 tablet 0.625-1.25 MG per tablet 1 tablet 1 tablet, Oral, DAILY, First dose on 03/25/13 at 0900 Given 03/29/2013 11:00 AM CDT 1 tablet Given 03/29/2013 9:55 AM CDT 1 tablet HYDROmorphone (DILAUDID) MED SURG NURSE 1 mg/mL Shift Total 03/26/2013 9:57 AM CDT MED SURG NURSE dose (mg): 0.1, Max MED SURG NURSE dose (mg): 0.2, Lockout Interval (min): 10 minutes, MED SURG NURSE Continuous Rate (mg/hr): CONTINUOUS RATE IS NOT RECOMMENDED FOR OPIOID NAIVE PATIENTS, Hour Limit (mg): 1.2, First dose on 03/25/13 at 1315, Do NOT give additional opioids orders unless requested by provider., Intravenous Shift Total 03/26/2013 5:50 AM CDT Shift Total 03/26/2013 2:00 AM CDT HYDROmorphone (PF) (DILAUDID) injection Given 03/25/2013 12:31 P M CDT 0.5 mg 0.3-0.5 mg 0.3-0.5 mg, Intravenous, EVERY 1 HOUR PRN, moderate to severe pain, Starting on 03/25/13 at 0251 Given 03/25/2013 11:19 AM CDT 0.5 mg Given 03/25/2013 6:23 AM CDT 0.5 mg HYDROmorphone (PF) (DILAUDID) injection Given 03/30/2013 1:40 PM CDT 0.5 mg 0.3-0.5 mg 0.3-0.5 mg, Intravenous, EVERY 2 HOURS PRN, moderate to severe pain, Starting on Wed03/26/13 at 0948 Given 03/30/2013 10:57 AM CDT 0.5 mg Given 03/30/2013 7:53 AM CDT 0.5 mg HYDROmorphone (PF) (DILAUDID) injection 0.5 Given 10/2012 12:03 AM CDT 0.5 mg mg 0.5 mg, Intravenous, EVERY 15 MIN PRN, moderate to severe pain, Starting on Wed03/24/13 at 2154, For 3 doses Given 03/24/2013 11:02 PM CDT 0.5 mg Given 03/24/2013 9:58 PM CDT 0.5 mg hydrOXYzine (ATARAX) tablet 25-50 mg Given 03/30/2013 12:31 PM CDT 50 mg 25-50 mg, Oral, EVERY 6 HOURS PRN, pain, Starting on Wed03/26/13 at 0948 Given 03/29/2013 2:07 PM CDT 50 mg Given 03/29/2013 12:48 AM CDT 50 mg iohexol (OMNIPAQUE) 140 mg/mL solution 5 0 mL Given 03/25/2013 11:19 AM CDT 50 mLs 50 mL, Oral, ONCE, On Wed03/25/13 at 0945, For 1 dose iohexol (OMNIPAQUE) 140 mg/mL solution 5 0 mL Given 03/29/2013 11:56 AM CDT 50 mLs 50 mL, Oral, ONCE, On Wed03/29/13 at 0900, For 1 dose ioversol (OPTIRAY 320) iv solution 68% 1 00 mL Given 03/29/2013 1:48 PM CDT 97 mLs 100 mL, Intravenous, ONCE, On Wed03/29/13 at 1345, For 1 dose KCl 20 mEq in NaCl 0.9% 1,000 mL New Bag 03/26/2013 4:49 AM CDT 125 mL/hr infusion 1,000 mL, at 75 mL/hr, Intravenous, CONTINUOUS, Starting on Wed03/25/13 at 0330, Until Wed03/28/13 at 0807 Rate/Dose Verify 03/26/2013 12:01 AM CDT 125 mL/hr New Bag 03/25/2013 8:39 PM CDT 125 mL/hr ketorolac (TORADOL) injection 30 mg Given 03/25/2013 9:21 AM CDT 30 mg 30 mg, Intravenous, EVERY 6 HOURS PRN, moderate to severe pain, Starting on Wed03/25/13 at 0854, For 5 days levothyroxine (SYNTHROID, LEVOTHROID) tablet Given 03/2013 6:53 AM CDT 175 mcg 175 mcg 175 mcg, Oral, EVERY MORNING BEFORE BREAKFAST, First dose on Wed03/25/13 at 0730, Do not co-administer with Multivitamin/Multimineral tablet. Given 03/29/2013 6:49 AM CDT 175 mcg Given 03/28/2013 6:49 AM CDT 175 mcg LORazepam (ATIVAN) injection 0.5 mg Given 03/30/2013 9:53 AM CDT 0.5 mg 0.5 mg, Intravenous, EVERY 4 HOURS PRN, anxiety, muscle spasms, nausea, vomiting, Starting on 03/25/13 at 0853 Given 03/30/2013 12:52 AM CDT 0.5 mg Given 03/29/2013 8:43 PM CDT 0.5 mg multivitamin, therapeutic with minerals Given 03/30/2013 8:43 AM CDT 1 tablet (THERA-VIT-M) 1 tablet 1 tablet, Oral, DAILY, First dose on 03/25/13 at 0900 Given 03/27/2013 9:28 AM CDT 1 tablet ondansetron (ZOFRAN) 2 MG/ML injection Starting on 03/25/13 at 0007, For 1 dose, LINN TOSCANO: emmainet override ondansetron (ZOFRAN) injection 4 mg Given 03/24/2013 10:01 PM CDT 4 mg 4 mg, Intravenous, ONCE PRN, nausea, vomiting, Administer over 2-5 Minutes, Starting on Wed03/24/13 at 2154, For 1 dose ondansetron (ZOFRAN) injection 4 mg Given 03/25/2013 12:07 AM CDT 4 mg 4 mg, Intravenous, ONCE, Administer over 2-5 Minutes, On 03/25/13 at 0015, For 1 dose ondansetron (ZOFRAN) injection 4 mg Given 03/25/2013 4:05 AM CDT 4 mg 4 mg, Intravenous, EVERY 6 HOURS PRN, nausea, vomiting, Administer over 2-5 Minutes, Starting on 03/25/13 at 0342, For 1 dose ondansetron (ZOFRAN-ODT) disintegrating tablet Given 0 03/27/2013 8:41 AM CDT 4 mg 4 mg 4 mg, Oral, EVERY 6 HOURS PRN, nausea, Starting on 03/25/13 at 0342, With dry hands, peel back foil backing and gently remove tablet; do not push oral disintegrating tablet through foil backing; administer immediately on tongue and oral disintegrating tablet dissolves in seconds; then swallow with saliva; liquid not required. Given 03/25/2013 8:36 PM CDT 4 mg Given 03/25/2013 1:26 PM CDT 4 mg oxyCODONE (ROXICODONE) immediate release Given 03/30/2013 1:48 P M CDT 10 mg tablet 5-10 mg 5-10 mg, Oral, EVERY 3 HOURS PRN, moderate to severe pain, Starting on 03/26/13 at 0947 Given 03/30/2013 10:57 AM CDT 10 mg Given 03/30/2013 7:52 AM CDT 10 mg PARoxetine (PAXIL) tablet 10 mg Given 03/30/2013 8:42 AM CDT 10 mg 10 mg, Oral, DAILY, First dose on 03/25/13 at 0900, Total Dose = 90mg Given 03/29/2013 8:54 AM CDT 10 mg Given 03/28/2013 9:24 AM CDT 10 mg PARoxetine (PAXIL) tablet 80 mg Given 03/30/2013 8:43 AM CDT 80 mg 80 mg, Oral, DAILY, First dose on 03/25/13 at 0900, Total Dose = 90mg Given 03/29/2013 8:53 AM CDT Given 03/28/2013 9:23 AM CDT 80 mg sodium chloride (PF) 0.9% PF flush 3 mL Given 03/27/2013 7:55 PM CDT 3 mLs 3 mL, Intravenous, EVERY 8 HOURS, First dose on 03/25/13 at 0330, And Q1H PRN, to lock peripheral IV dormant line. Given 03/26/2013 6:38 PM CDT 3 mLs sodium chloride 0.9 % BOLUS New Bag 03/24/2013 9:15 PM CDT 1,000 m Ls 1000 mL/hr 1,000 mL Intravenous, 1,000 mL, ONCE, at 1,000 mL/hr, Administer over 1 Hours, On Wed03/24/13 at 2200, For 1 dose sodium chloride 0.9 % BOLUS 1,000 mL New Bag 03/29/2013 1:47 PM CDT 62 mLs Intravenous, 1,000 mL, ONCE, On Wed03/29/13 at 1345, For 1 dose documented in this encounter Active and Recently Administered Medications Times are shown in CDT. Scheduled Medication Order 03/28/2013 03/29/2013 03/30/2013 cholecalciferol (vitamin D) tablet 2,000 Units (CANCEL ED) 7944 (Given - Provider: Eduarda Arroyo RN) 0852 (Given - Provider: Eduarda Arroyo RN) 0842 (Given - Provider: Corie Shahid LPN) 2,000 Units, Oral, DAILY, First dose on 03/25/13 at 0900 enoxaparin (LOVENOX) injection 40 mg (CANCELED) 0922 ( Given - Provider: Eduarda Arroyo RN) 0851 (Given - Provider: Eduarda Arroyo RN) 0752 (Given - Provider: Faizan Rangel RN) 40 mg, Subcutaneous, EVERY 24 HOURS, Fir st dose on 03/25/13 at 0800, HOLD if platelet count falls below 50% of baseline or < 100,000 / ??L and notify MD. estrogens-methylTESTOSTERone (ESTRATEST HS) 0.625-1.25 MG per tablet 1 tablet (CANCELED) 1032 (Given - Provider: Ad Rodriguez RN) 0955 (Gi parul - Provider: Sahra Meraz)1100 (Given - Provider: Eduarda Arroyo RN) 0842 (Given - Provider: Corie Shahid LPN) 1 tablet, Oral, DAILY, First dose on 03/25/13 at 0900 iohexol (OMNIPAQUE) 140 mg/mL solution 50 mL (COMPLETED) 1156 (Given - Provider: Sahra Meraz) 50 mL, Oral, ONCE, Wed03/29/13 at 0900, For 1 dose ioversol (OPTIRAY 320) iv solution 68% 100 mL (COMPLETED) 1348 (Given - Provider: Dilma Bender - Comment: 3ml optiray 320 discarded.) 100 mL, Intravenous, ONCE, On Wed03/29/13 at 1345, For 1 dose levothyroxine (SYNTHROID, LEVOTHROID) tablet 175 mcg ( CANCELED) 0649 (Given - Provider: Itzel Augustin LPN) 0649 (Given - Provider: Luci Brown LPN) 0653 (Given - Provider: Luci Brown LPN) 175 mcg, Oral, EVERY MORNING BEFORE AUGUSTINE KFAST, First dose on 03/25/13 at 0730, Do not co-administer with Multivitamin/Multimineral tablet. multivitamin, therapeutic with minerals (THERA-VIT-M) 1 tablet (CANCELED) 0925 (Not Given - Provider: Eduarda Arroyo RN - Reason: Contraindicated) 0855 (Not Given - Provider: Eduarda Arroyo RN - Reason: Nausea) 0843 (Given - Provider: Corie Shahid LPN) 1 tablet, Oral, DAILY, First dose on 03/25/13 at 0900 PARoxetine (PAXIL) tablet 10 mg (CANCELED) 0924 (Given - Provider: Eduarda Arroyo RN) 0854 (Given - Provider: Eduarda Arroyo RN) 0842 (Given - Provider: Corie Shahid LPN) 10 mg, Oral, DAILY, First dose on 03/25/13 at 0900, Total Dose = 90mg PARoxetine (PAXIL) tablet 80 mg (CANCELED) 0923 (Given - Provider: Eduarda Arroyo RN) 0853 (Given - Provider: Eduarda Arroyo RN) 0843 (Given - Provider: Corie Shahid LPN) 80 mg, Oral, DAILY, First dose on 03/25/13 at 0900, Total Dose = 90mg sodium chloride 0.9 % BOLUS 1,000 mL (COMPLETED) 1347 (New Bag - Provider: Dilma Bender - Comment: bulk)1349 (Stopped - Provider: Dilma Bender) Intravenous, 1,000 mL, ONCE, On Wed03/29/13 at 1345, For 1 dose Continuous Medication Order 03/28/2013 03/29/2013 03/30/2013 dextrose 5 % and 0.45 % NaCl + KCl 20 mEq/L (CANCELED) 0825 (Rate/Dose Change - Provider: Arcelia Taveras LPN)1527 (Rate/Dose Verify - Provider: Edelmira Cuevas LPN)2005 (New Bag - Provider: Edelmira Cuevas LPN)202 (Rate/Dose Verify - Provider: Edelmira Cuevas LPN) 0128 (Rate/Dose Verify - Provider: Sharon Alberts RN)0719 (Rate/Dose Verify - Provider: Sahra Meraz)1501 (New Bag - Provider: Sahra Meraz) 0043 (Rate/Dose Verify - Provider: Sharon Alberts, RN)1154 (Stopped - Provider: Faizan Rangel, RN) at 50 mL/hr, Intravenous, CONTINUOUS PRN Medication Order 03/28/2013 03/29/2013 03/30/2013 acetaminophen (TYLENOL) tablet 650 mg 650 mg, Oral, EVERY 4 HOURS PRN, mild pa in, Starting 03/26/13 at 0948, Maximum acetaminophen dose from all sources = 75 mg/kg/day not to exceed 4 grams/day. povbecbifd-hrujwcu-ihrfecsl-codeine (FIO RINAL WITH codeine) capsule 2 capsule (CANCELED) 174 (Given - Provider: Carolyn Lockwood RN) 0133 ( Given - Provider: Luci Brown LPN)204 (Given - Provider: Tita Edwards RN) 2 capsule, Oral, EVERY 4 HOURS PRN, headaches, Starting Sat at 0407 diphenhydrAMINE (BENADRYL) injection 25 mg (CANCELED) 2022 (Given - Provider: Carolyn Lockwood RN) 25 mg, Intravenous, EVERY 6 HOURS PRN, itching, Starting Sat 03/25 at 1312 HYDROmorphone (PF) (DILAUDID) injection 0.3-0.5 mg (CA NCELED) 0920 (Given - Provider: Eduarda Arroyo RN)1217 (Given - Provider: Leatha Antonio RN)1617 (Given - Provider: Carolyn Lockwood RN)202 (Given - Provider: Carolyn Lockwood RN)2234 (Given - Provider: Carolyn Lockwood RN) 0859 (Given - Provider: Eduarda Arroyo RN)1103 (Given - Provider: Eduarda Arroyo, MARCELA)1403 (Given - Provider: Eduarda Arroyo RN)1639 (Given - Provider: Tita Edwards, MARCELA)1942 (Given - Provider: Tita Edwards, MARCELA) 0052 (Given - Provider: Sharon Alberts, MARCELA)0753 (Given - Provider: Faizan Rangel, MARCELA)1057 (Given - Provider: Faizan Rangel RN)1340 (Given - Provider: Faizan Rangel RN) 0.3-0.5 mg, Intravenous, EVERY 2 HOURS P RN, Starting 03/26/13 at 0948, Until Prema 03/30/13 at 1550, moderate to severe pain hydrOXYzine (ATARAX) tablet 25-50 mg (CANCELED) 0048 (Given - Provider: Luci Brown LPN)1407 (Given - Provider: Eduarda Arroyo RN) 1231 (Given - Provider: Faizan Rangel RN) 25-50 mg, Oral, EVERY 6 HOURS PRN, pain, Starting 03/26/13 at 0948 LORazepam (ATIVAN) injection 0.5 mg (CANCELED) 1336 (G iven - Provider: Eduarda Arroyo RN)1746 (Given - Provider: Carolyn Lockwood, MARCELA)2234 (Given - Provider: Carolyn Lockwood RN) 1215 (Given - Provider: Eduarda Arroyo RN )1638 (Given - Provider: Tita Edwards RN)2043 (Given - Provider: Tita Edwards RN) 0052 (Given - Provider: Sharon Alberts RN - Comment: vial dispensed from pyxis was 2mg, wasted appropriate amount with witness, tiotal given 0.5mg)0953 (Given - Provider: Faizan Rangel RN) 0.5 mg, Intravenous, EVERY 4 HOURS PRN, anxiety, muscle spasms, nausea, vomiting, Starting 03/25/13 at 0853 oxyCODONE (ROXICODONE) immediate release tablet 5-10 m g 1052 (Given - Provider: Aracely Ugarte LPN) 0752 (Given - Provider: Josy Rangel RN)1057 (Given - Provider: Faizan Rangel RN - Comment: ripped barcode)1348 (Given - Provider: Faizan Rangel RN) 5-10 mg, Oral, EVERY 3 HOURS PRN, modera te to severe pain, Starting 03/26/13 at 0947 documented in this encounter Care Teams Rn Hospital Relationship Specialty Start Date End Date Yusef Lino MD PCP - General Family Practice 03/24/13 08/28/17 [facility] [id number] [place] [address] documented as of this encounter
--- OUTSIDE RECORDS SUMMARY | 2022-08-10 10:56 | XMS_ITS | Encounter Summary ---
:1965 Author Organization [place] Address [facility] [place] [address] Care Team Providers Name Role Phone Yusef Lino MD Primary Care Provider Reason for Visit Auth/Cert - Closed Specialty Diagnoses / Procedures Referred By Contact Refer red To Contact Gastroenterology Diagnoses PANCREATITIS Sh Endoscopy Procedures COMBINED ENDOSCOPIC ULTRASOUND, ESOPHAGOSCOPY, GASTROSCOPY, DUODENOSCOPY (EGD), FINE NEEDLE ASPIRATE/BIOPSY [address] [phone] Phone: Referral ID Status Reason Start Date Expiration Date Visits Requ ested Visits Authorized [id number] Closed 1 1 Encounter Details Date Type Department Care Team Description 05/04/2013 Anesthesia Event [facility] Radha Larsen Endoscopy Alex[place] [address] [place] [id number] ANESTHESIOLOGISTS [phone] [address] [id number] (Wo rk) Anesthesia Record Procedure Summary Procedure Name Responsible Anesthesia Start Anesthesia Stop Anesthesiologist Time Time ENDOSCOPIC Radha Larsen 05/04/13 0856 3 0934 ULTRASOUND WITH FINE NEEDLE ASPIRATE (Esophagus) Events Date Time Event Comment 05/04/2013 0822 0856 An Start 0856 An Start Data 0930 an stop data 0934 An Stop Electronically s igned by Mikaela Bailey on May 04, 2013 9:34 AM Name Total fentaNYL 50 mcg/mL 50 mcg midazolam 1 mg/mL 3.5 mg ondansetron 2 mg/mL 4 mg propofol 10 mg/mL 327.25 mg No abx ordered pre-op 1 each LR 500 mL Agents Name O2 Blood No blood administrations on file. Lines, Drains, and Airways Type Details Placement Removal Peripheral IV 05/04/13; 0756; 20 G, 3/4 05/04/13 0756 by Bhatia , 05/04/13 1052 by inch; Right; Lower MARCELA Matt Coll een L, RN forearm; Chlorhexidine; Tolerated well documented in this encounter Social History Tobacco Use Types Packs/Day Years [...] on file documented as of this encounter OR Notes Anesthesia Postprocedure Evaluation - Radha Larsen - 05/04/2013 2:26 PM CDT Anesthesia Post-Evaluation Note Patient: Mariia Culver Patient location: PACU Procedure(s) Performed: Procedure(s) with comments: COMBINED ENDOSCOPIC ULTRASOUND, ESOPHAGOSCOPY, GASTROSCOPY, DUODENOSCOPY (EGD) - ENDOSCOPIC ULTRASOUND WITH FINE NEEDLE ASPIRATE COMBINED ESOPHAGOSCOPY, GASTROSCOPY, DUODENOSCOPY (EGD), BIOPSY SINGLE OR MULTIPLE Anesthesia type: MAC Post Op Diagnosis: * No post-op diagnosis entered * Patient Condition Respiratory Function (RR / SpO2 / Airway Patency): Satisfactory Cardiac Function (HR / Rhythm / BP): Satisfactory Mental Status: Satisfactory Temperature: Satisfactory Pain Control: Satisfactory PONV: None Beta-Alexander Therapy: None indicated Hydration Status: Satisfactory Last Vitals: Filed Vitals: 05/04/13 1015 05/04/13 1025 05/04/13 1035 BP: 114/65 114/68 113/69 Temp: Resp: 7 8 23 SpO2: 92% 92% 91% Anesthesia Preprocedure Evaluation - Radha Larsen - 05/04/2013 8:21 AM CDT Anesthesia Evaluation . Pt has had prior anesthetic. No history of anesthetic complications ROS/MED HX Pulmonary: (-) asthma, COPD and sleep apnea Neurologic: (+) Other neuro hxdescription: migraines (-) seizures and CVA Cardiovascular: METS/Exercise Tolerance: Hematologic: Musculoskeletal: Comment: History of cervical fusion GI/Hepatic: (+) Other GI/Hepatic h/o pancreatitis (-) GERD Renal: (+) chronic renal disease (kidney stones) Endo: (+) thyroid problem hypothyroidism, Psychiatric: Infectious Disease: Other: Physical Exam Normal systems: dental Airway Mallampati: I TM distance: >3 FB Neck ROM: limited Dental Cardiovascular Rhythm and rate: regular and normal Pulmonary breath sounds clear to auscultation Anesthesia Plan ASA Score 2 . Plan for MAC Routine analgesia and antiemetics to be used for post-operative care. Anesthetic plan, risks, benefits and alternatives discussed with: patient or account services representative. History & Physical Review History and physical reviewed; no interval change. . Procedure: Procedure(s): COMBINED ENDOSCOPIC ULTRASOUND, ESOPHAGOSCOPY, GASTROSCOPY, DUODENOSCOPY (EGD), FINE NEEDLE ASPIRATE/BIOPSY Preop diagnosis: PANCREATITIS No Known Allergies Past Medical History Diagnosis Date ??? Pancreatitis 3 episode 1996- 2004 ??? Migraine Past Surgical History Procedure Date ??? Cholecystectomy 1992 ??? Orthopedic surgery cervical spine fusion ??? Power Washer surgery hysterectomy Prior to Admission medications Medication Sig Start Date End Date Taking? Authorizing Provider nduvcyaozy-xsxbkrk-zutcnqxu (FIORINAL EQUIV) 50-325-40 MG TABS Take 1 tablet by mouth every 4 hours as needed. Reported, Patient oxyCODONE-acetaminophen (PERCOCET) 5-325 MG per tablet Take 1-2 tablets by mouth every 4 hours as needed for pain. 04/18/13 Ilda Blake MD prochlorperazine (COMPAZINE) 10 MG tablet Take 1 tablet by mouth every 6 hours as needed. 04/18/13 Ilda Blake MD oxyCODONE (ROXICODONE) 5 MG immediate release tablet Take 1-2 tablets by mouth every 4 hours as needed. 03/30/13 Corky Casas MD acetaminophen 650 MG TABS Take 500-1,000 mg by mouth every 6 hours as needed. 03/30/13 Davie Casas MD multivitamin, therapeutic with minerals (MULTI-VITAMIN) TABS Take 1 tablet by mouth daily. 03/30/13 Corky Casas MD prochlorperazine (COMPAZINE) 5 MG tablet Take 1-2 tablets by mouth every 6 hours as needed for nausea. 03/30/13 Corky Casas MD PARoxetine HCl (PAXIL PO) Take 90 mg by mouth daily. Patient takes 3 tabs of 30mg=90mg Reported, Patient Levothyroxine Sodium (SYNTHROID PO) Take 175 mcg by mouth daily. Reported, Patient estrogens-methylTESTOSTERone (ESTRATEST HS) 0.625-1.25 MG per tablet Take 1 tablet by mouth daily. Reported, Patient VITAMIN D, CHOLECALCIFEROL, PO Take 2,000 Units by mouth daily. Reported, Patient SUMAtriptan Succinate Refill (IMITREX STATDOSE REFILL) 6 MG/0.5ML SOLN Inject 6 mg Subcutaneous once. May repeat in 1 hr as needed, do not exceed 2 doses per 24hrs Dummy, Bfp User Current Facility-Administered Medications Ordered in [facility] Medication Dose Route Frequency Last Rate Last Dose ??? lactated ringers SOLN PRN 1,000 mL at 05/04/13 0750 No current [facility]-ordered outpatient prescriptions on file. Wt Readings from Last 1 Encounters: 05/04/13 225 lb (102.059 kg) Temp Readings from Last 1 Encounters: 05/04/13 36.8 ??C (98.3 ??F) Oral BP Readings from Last 6 Encounters: 05/04/13 136/73 05/04/13 136/73 04/18/13 105/77 03/30/13 123/62 Pulse Readings from Last 4 Encounters: 03/28/13 91 Resp Readings from Last 1 Encounters: 05/04/13 16 SpO2 Readings from Last 1 Encounters: 05/04/13 95% Recent Labs Lab Test 04/18/13 1818 03/28/13 0705 NA 142 141 POTASSIUM 3.4 3.9 CHLORIDE 103 103 CO2 26 29 ANIONGAP 14 8.8 GLC 116* 105* BUN 17 6* CR 0.52 0.57 SEJAL 9.4 8.5 Recent Labs Lab Test 04/18/13 1818 03/28/13 0705 03/26/13 0625 WBC 6.6 -- 5.8 HGB 14.6 -- 12.9 PLT 324 314 -- documented in this encounter Miscellaneous Notes Anesthesia Care Transfer Note - Mikaela Bailey APRN CRNA - 05/04/2013 9:34 AM CDT Anesthesia Care Note Patient: Mariia Culver Transferred to PACU Patient Vital Signs: Stable Airway: none Spont resps, awake, alert, 4 liters O2 NC, IV patent, monitors and alarms on, report to RN. Leonor Bailey [employer]IN[employer]ING [employer]ER 05/04/2013 documented in this encounter Plan of Treatment Not on filedocumented as of this encounter Visit Diagnoses Not on filedocumented in this encounter Administered Medications Inactive Administered Medications - up to 3 most recent administrations Medication Order MAR Action Action Date Dose Rate Site fentaNYL (SUBLIMAZE) injection Given 05/04/2013 8:58 AM CDT 50 mcg PRN, moderate to severe pain, Starting on Prema 05/04/13 at 0858, Anesthesia Intra-op lactated ringers infusion New Bag 05/04/2013 8:56 AM CDT mL Intravenous, CONTINUOUS PRN, Anesthesia Intra-op, Starting on Prema 05/04/13 at 0856, Until Prema 05/04/13 at 0934 midazolam (VERSED) injection Given 05/04/2013 9:09 AM CDT 0.5 mg PRN, anxiety, Starting on Prema 05/04/13 at 0858, Anesthesia Intra-op Given 05/04/2013 9:05 AM CDT 0.5 mg Given 05/04/2013 9:02 AM CDT 0.5 mg No abx ordered pre-op Given 05/04/2013 8:57 AM CDT 1 each PRN, Starting on Prema 05/04/13 at 0857, Until Prema 05/04/13 at 0934, No antibiotics ordered pre-op by surgeon, Anesthesia Intra-op ondansetron (ZOFRAN) injection Given 05/04/2013 9:00 AM CDT 4 mg PRN, nausea, vomiting, Administer over 2-5 Minutes, Starting on Prema 05/04/13 at 0900, Anesthesia Intra-op propofol (DIPRIVAN) Rate/Dose 05/04/2013 9:10 175 mcg/kg/min 89.3 mL /hr injection Change AM CDT CONTINUOUS PRN, Starting on Prema 05/04/13 at 0859, Anesthesia Intra-op Rate/Dose Change 05/04/2013 9:06 AM CDT 200 mcg/kg/min 102 mL/hr Rate/Dose Change 05/04/2013 9:01 AM CDT 175 mcg/kg/min 89.3 mL/hr documented in this encounter Care Teams Necktie Maker Relationship Specialty Start Date End Date Yusef Lino MD PCP - General Family Practice 03/24/13 08/28/17 [facility] [id number] [place] [address] documented as of this encounter
--- OUTSIDE RECORDS SUMMARY | 2022-08-10 10:56 | XMS_ITS | Encounter Summary ---
:1965 Author Organization [facility] Address [address] [id number] Care Team Providers Name Role Phone Unavailable Primary Care Provider Unavailable Encounter Details Date Type Department Care Team Description 10/07/2008 Historic Results INTERFACED REPORT Interface, Juan munoz MD Social History Tobacco Use Types Packs/Day Years Used Date Smoking Tobacco: Never Assessed Alcohol Habits Answer Date Recorded How often [...] Priority Date/Time Associated Diagnosis Comme nts EKG 12 LEAD Routine 10/07/2008 8:15 PM Results f or this PERSONNEL MANAGER procedure are i n the results section . documented in this encounter Results EKG 12 LEAD (10/07/2008 8:15 PM PERSONNEL MANAGER) Component Value Ref Range Test Analysis Performed Pathologis t Method Time At Signature Ventricular Rate 76 BPM RADIOLOGY RESULTS Atrial Rate 76 BPM RADIOLOGY RESULTS OR Interval 154 ms RADIOLOGY RESULTS QRS Duration 82 ms RADIOLOGY RESULTS QT 388 ms RADIOLOGY RESULTS QTc 436 ms RADIOLOGY RESULTS P [place] 48 degrees RADIOLOGY RESULTS R AXIS 50 degrees RADIOLOGY RESULTS T [place] 26 degrees RADIOLOGY RESULTS Interpretation AGE AND GENDER SPECIFIC ECG ANALYSIS RADIOLOGY ECG Sinus rhythm RESULTS Normal ECG Unconfirmed report - interpretation of this ECG is compute r generated - see medical record for final interpretation Specimen Anatomical Collection Method Collection Time Receive d Time (Source) Location / / Volume Laterality 10/07/2008 8:15 PM 8 9:45 PERSONNEL MANAGER AM PERSONNEL MANAGER Transcripton Interface ECG ORDERABLES Performing Organization Address City/State/ZIP Code Phon e Number RADIOLOGY RESULTS documented in this encounter Visit Diagnoses Not on filedocumented in this encounter
--- OUTSIDE RECORDS SUMMARY | 2022-08-10 10:56 | XMS_ITS | Encounter Summary ---
:1965 Author Organization [facility] Address [address] [place] [id number] Care Team Providers Name Role Phone Yusef Lino MD Primary Care Provider Reason for Visit Reason Comments Abdominal Pain Auth/Cert - Closed Specialty Diagnoses / Procedures Referred By Contact Refer red To Contact Diagnoses Pancreatitis [id number] [facility] [address] [place], [place] [address] Phone: Fax: Referral ID Status Reason Start Date Expiration Date Visits Requ ested Visits Authorized [id number] Closed 1 1 Encounter Details Date Type Department Care Team Description 05/24/2013 - [facility] Donnell Zepeda MD [facility] [address] [place] [address] Pancreatitis 05/27/2013 Encounter [facility] Mora Mariscal MD [address] [place], [place] [id number] (Primary Dx) Surgical Corky Casas MD [address] [place], [place] [id number] [address] [place] [address] Social History Tobacco Use Types [...] Sign Reading Time Taken Comments Blood Pressure 125/63 05/27/2013 7:29 AM CDT Pulse 104 05/25/2013 12:46 AM CDT Temperature 36.8 ??C (98.3 ??F) 05/27/2013 7:29 AM CDT Respiratory Rate 16 05/27/2013 7:29 AM CDT Oxygen Saturation 94% 05/27/2013 7:29 AM CDT Inhaled Oxygen Concentration - - Weight 105.7 kg (233 lb) 05/25/2013 12:46 AM CDT Height 170.2 cm (5' 7) 05/25/2013 12:46 AM CDT Body Mass Index 36.49 05/25/2013 12:46 AM CDT documented in this encounter Discharge Summaries Corky Casas MD - 05/27/2013 12:03 PM CDT Discharge Summary Richar Culver Date of : 1965 Age: [age] year old Date of Admission: 05/24/2013 Date of Discharge: 05/27/2013 Admitting Physician: Mora Mariscal MD Discharge Physician: Corky Casas MD, MD Discharging Service: Hospitalist Home clinic: [facility] Primary Provider: Yusef Lion Discharge Diagnosis: 1. Pancreatitis, acute. Likely due to pancreatic divisum. 2. Hypothyroidism. 3. Depression. 4. Chronic Migraines. Discharge Disposition: Discharged to home Allergies: No Known Allergies Discharge Medications: Current Discharge Medication List START taking these medications Details oxyCODONE (ROXICODONE) 5 MG immediate release tablet Take 1-2 tablets (5-10 mg) by mouth every 4 hours as needed Qty: 50 tablet, Refills: 0 Associated Diagnoses: Pancreatitis CONTINUE these medications which have NOT CHANGED Details hpxbyfn-rsxgczfnbiega-kwlmseve (EXCEDRIN MIGRAINE) 250-250-65 MG per tablet Take 2 tablets by mouth every 8 hours as needed xemsdajxut-ckrbcyt-tllyybqb (FIORINAL EQUIV) 50-325-40 MG TABS Take 1 tablet by mouth every 4 hours as needed. multivitamin, therapeutic with minerals (MULTI-VITAMIN) TABS Take 1 tablet by mouth daily. Qty: 30 each Comments: Hold- do not take until feeling better Associated Diagnoses: Dietary supplement discontinued PARoxetine HCl (PAXIL PO) Take 90 mg [...] do not exceed 2 doses per 24hrs acetaminophen 650 MG TABS Take 500-1,000 mg by mouth every 6 hours as needed. Qty: 100 tablet Associated Diagnoses: Pain Condition on Discharge: Discharge condition: Stable Discharge vitals: Blood pressure 125/63, pulse 104, temperature 98.3 ??F (36.8 ??C), temperature source Oral, resp. rate 16, height 1.702 m (5' 7), weight 105.688 kg (233 lb), SpO2 94.00%. Code status on discharge: Full Code Physical exam on day of discharge: GENERAL: Comfortable. Cooperative. PSYCH: pleasant, oriented, No acute distress. EYES: PERRLA, Normal conjunctiva. HEART: Regular rate and rhythm. No JVD. Pulses normal. No edema. LUNGS: Clear to auscultation, normal Respiratory effort. ABDOMEN: Soft, no hepatosplenomegaly, normal bowel sounds. Mild epigastric and mid back pain to palpation. EXTREMETIES: No clubbing, cyanosis or ischemia SKIN: Dry to touch, No rash. History of Present Illness and Hospital Course: Richar Culver is a 48 year old female with a history of recurrent pancreatitis and divisum of thepancreas. She presented with abdominal pain. She was found to have recurrent acute pancreatitis. Herinitial lipase was 1397. She was seen by GI and conservative management was recommended. Her lipase came down to 43 after two days. Unfortunately, due to this hospitalization, she missed her outpatientfollow up with the specialist at [facility] that treats pancreatic divisum. She will reschedule that appointment. She will discharge home on a low fat diet. She will have oxycodone that she can take as needed. Procedures / Imaging: None Consultations: Consultation during this admission received from gastroenterology Significant Results: Discussed above Pending Results: None Discharge Instructions and Follow-Up: Discharge diet: Low fat Discharge activity: Activity as tolerated Discharge follow-up: Follow up with [facility] next available. Outpatient therapy: None Home Care agency: None Other instructions: None Total time spent in face to face contact with the patient and coordinating discharge was: 25 Minutes documented in this encounter Medications at Time of Discharge Medication Sig Dispensed Refills Start Date End Date keeonau-hhtgdxdgzkusd-m Take 2 tablets by 0 affeine (EXCEDRIN mouth every 8 hours MIGRAINE) 250-250-65 MG as needed per tablet VITAMIN D, Take 2,000 Units by 0 CHOLECALCIFEROL, PO mouth daily. acetaminophen 650 MG Take 500-1,000 mg by 100 tablet 0 03/3007/23/2013 TABSIndications: Pain mouth every 6 hours as needed. kxvowabzdj-uxfrixp-qcfh Take 1 tablet by 0 07/23/2013 eine [...] encounter Progress Notes Juana Tate RN - 05/29/2013 11:07 AM CDT I faxed info to Dr Lino's CTS of pt's recent hospitalization Eli MEDRANO CTS [id number] Jus Marks PA-C - 05/26/2013 1:42 PM CDT GASTROENTEROLOGY PROGRESS NOTE CC: Acute pancreatitis SUBJECTIVE: Pt reports feeling much better. Abd pain is gone. She had a migraine headache earlier and now has lower back spasms. Tolerating liquids, though had an urgent loose stool afterwards. OBJECTIVE: General Appearance: Appears well, NAD, alert BP 122/66 Pulse 104 Temp 98.2 ??F (36.8 ??C) (Oral) Resp 20 Ht 1.702 m (5' 7) Wt 105.688 kg (233 lb) BMI 36.49 kg/m2 SpO2 95% Temp (24hrs), Av.9 ??F (36.6 ??C), Min:97.1 ??F (36.2 ??C), Max:98.4 ??F (36.9 ??C) Patient Vitals for the past 72 hrs: Weight 05/25/13 0046 105.688 kg (233 lb) 05/24/13 2048 106.595 kg (235 lb) Intake/Output Summary (Last 24 hours) at 05/26/13 1342 Last data filed at 05/26/13 0619 Gross per 24 hour Intake 3572 ml Output 0 ml Net 3572 ml PHYSICAL EXAM GI: +BS, soft, NT, ND Additional Comments: ROS, FH, SH: See initial GI consult for details. I have reviewed the patient's new clinical lab results: Recent Labs Lab Test 05/25/1358 05/24/13210904/18/131817 WBC 5.2 7.4 6.6 HGB 12.9 15.3 14.6 MCV 94 93 92 PLT 287 340 324 INR -- -- -- Recent Labs Lab Test 05/26/13 0845 05/25/1365705/24/132109 POTASSIUM 4.0 3.9 3.8 CHLORIDE 107 108 104 CO2 22 24 24 BUN 8 20 21 ANIONGAP 13 13 17 GLUCOSE -- -- -- Recent Labs Lab Test 05/26/13 0845 05/25/1358 05/24/13210904/18/13 1900 04/18/138 03/24/13211410/07/08 2150 ALBUMIN -- 3.5* 4.4 -- 4.4 -- -- BILITOTAL -- 0.2 0.3 -- 0.3 -- -- BILIDIRECT -- -- -- -- -- -- -- ALT -- 39 39 -- 56* -- -- AST -- 29 33 -- 37 -- -- PROTEIN -- -- -- 10* -- 10* 10* LIPASE 43 1344* 1397* -- -- -- -- AMYLASE -- -- -- -- -- -- -- Patient Active Hospital Problem List: Acute Pancreatitis Assessment: Likely due to pancreas divisum. Quickly resolving. Her lipase is 43 today and she has no GI complaints. Plan: Can ADAT. Once tolerating PO she can d/c home. She will f/u with Dr. Perez to discuss treatment options for her divisum. Will sign off, please call if you need us. Jus Marks PA-C [facility] Corky Casas MD - 05/26/2013 10:28 AM CDT [facility] Hospitalist Progress Note Assessment and Plan: Richar Culver is a 48 year old female with a history of recurrent pancreatitis and divisum of thepancreas, who presented with abdominal pain. She was found to have recurrent acute pancreatitis. 1. Pancreatitis, acute. Likely due to pancreatic divisum. Improving some. Lipase has normalized. Start clear liquids. Try oral pain meds. Advance to low fat diet as tolerted. Once resolves, follow up with [facility] as outpatient to discuss treatment options for pancreatic divisum. GI consult is appreciated. 2. Hypothyroidism 3. Depression 4. Chronic Migraines 5. Dispo. Continue inpatient cares. Interval History: Pain in abdomen is better. Some headache consistent with her normal headaches. No new problems. Medications: I have reviewed this patient's current medications Physical Exam: Blood pressure 122/66, pulse 104, temperature 98.2 ??F (36.8 ??C), temperature source Oral, resp. rate 20, height 1.702 m (5' 7), weight 105.688 kg (233 lb), SpO2 95.00%. Intake/Output Summary (Last 24 hours) at 05/26/13 1029 Last data filed at 05/26/13 0619 Gross per 24 hour Intake 3572 ml Output 0 ml Net 3572 ml GENERAL: More comfortable appearing. Cooperative. PSYCH: pleasant, oriented, No acute distress. EYES: PERRLA, Normal conjunctiva. HEART: Regular rate and rhythm. No JVD. Pulses normal. No edema. LUNGS: Clear to auscultation, normal Respiratory effort. ABDOMEN: Soft, no hepatosplenomegaly, normal bowel sounds. Minimal ab tenderness. EXTREMETIES: No clubbing, cyanosis or ischemia SKIN: Dry to touch, No rash. Data: Recent labs, imaging, and other studies were reviewed. NA 142 05/26/2013 NA 145 05/25/2013 NA 145 05/24/2013 CHLORIDE 107 05/26/2013 CHLORIDE 108 05/25/2013 CHLORIDE 104 05/24/2013 BUN 8 05/26/2013 BUN 20 05/25/2013 BUN 21 05/24/2013 POTASSIUM 4.0 05/26/2013 POTASSIUM 3.9 05/25/2013 POTASSIUM 3.8 05/24/2013 CO2 22 05/26/2013 CO2 24 05/25/2013 CO2 24 05/24/2013 CR 0.49 05/26/2013 CR 0.65 05/25/2013 CR 0.71 05/24/2013 Lab 05/25/13 0658 05/24/13 2110 WBC 5.2 7.4 HGB 12.9 15.3 HCT 38.2 43.8 MCV 94 93 PLT 287 340 Lab 05/26/13 0845 05/25/13 0658 05/24/13 2110 LIPASE 43 1344* 1397* Corky Casas MD - 05/25/2013 4:15 PM CDT [facility] Hospitalist Progress Note Assessment and Plan: Richar Culver is a 48 year old female with a history of recurrent pancreatitis and divisum of thepancreas, who presented with abdominal pain. She was found to have recurrent acute pancreatitis. 1. Pancreatitis, acute. Likely due to pancreatic divisum. Continue conservative management. Once resolves, follow up with [facility] as outpatient to discuss treatment options for pancreatic divisum. GI consult is appreciated. 2. Hypothyroidism 3. Depression 4. Chronic Migraines 5. Dispo. Continue inpatient cares. Interval History: Patient is feeling ok. Still some ab pain. Lipase was still elevated. Medications: I have reviewed this patient's current medications Physical Exam: Blood pressure 115/54, pulse 104, temperature 98 ??F (36.7 ??C), temperature source Oral, resp. rate18, height 1.702 m (5' 7), weight 105.688 kg (233 lb), SpO2 94.00%. Intake/Output Summary (Last 24 hours) at 05/25/13 1618 Last data filed at 05/25/13 1444 Gross per 24 hour Intake 1966 ml Output 0 ml Net 1966 ml GENERAL: Comfortable at rest. Cooperative. PSYCH: pleasant, oriented, No acute distress. EYES: PERRLA, Normal conjunctiva. HEART: Regular rate and rhythm. No JVD. Pulses normal. No edema. LUNGS: Clear to auscultation, normal Respiratory effort. ABDOMEN: Soft, no hepatosplenomegaly, normal bowel sounds. Epigastric tenderness on exam. EXTREMETIES: No clubbing, cyanosis or ischemia SKIN: Dry to touch, No rash. Data: Recent labs, imaging, and other studies were reviewed. NA 145 05/25/2013 NA 145 05/24/2013 NA 142 04/18/2013 CHLORIDE 108 05/25/2013 CHLORIDE 104 05/24/2013 CHLORIDE 103 04/18/2013 BUN 20 05/25/2013 BUN 21 05/24/2013 BUN 17 04/18/2013 POTASSIUM 3.9 05/25/2013 POTASSIUM 3.8 05/24/2013 POTASSIUM 3.4 04/18/2013 CO2 24 05/25/2013 CO2 24 05/24/2013 CO2 26 04/18/2013 CR 0.65 05/25/2013 CR 0.71 05/24/2013 CR 0.52 04/18/2013 Lab 05/25/13 0658 05/24/13 2110 WBC 5.2 7.4 HGB 12.9 15.3 HCT 38.2 43.8 MCV 94 93 PLT 287 340 Lab 05/25/13 0658 05/24/13 2110 LIPASE 1344* 1397* Mora Mariscal MD - 05/25/2013 12:37 AM CDT Patient seen and examined independently. Discussed with the physician investigative assistant caring for this patient today in detail. Agree with the plan as outlined in the admission note. 48 yo female with flare of recurrent pancreatitis. Found to have pancreatic divisum on recent EUS. Was supposed to see outpatient provider to discuss treatment options for that. Conservative treatment for this flare, actually appears quite comfortable on exam. Will notify [facility] of patient's admission. documented in this encounter H&P Notes Corky Casas MD - 05/24/2013 10:35 PM CDT History and Physical Richar Culver Date of : 1965 Age: [age] year old Date of Admission: 05/24/2013 Primary care provider: Yusef Lino Assessment and Plan: Richar Culver is a 48 year old female with a PMH significant for recurrent pancreatitis and divisum of the pancreas, who presents with abdominal pain. Please see HPI below. 1. Pancreatitis: EUS on 05/04/13 showed pancreas divisum, which may be the cause of her pancreatitis.She is following with [facility] and tells me she had an appointment scheduled for tomorrowfor f/u of this recent dx. She is s/p cholecystectomy 10-15 years ago at initial onset of pancreatitis. She was admitted 2 months to [facility] with Dx of pancreatitis, treated NPO and pain management. Today, her lipase is elevated however she is afebrile, WBC normal and VSS stable. Will provide aggressive IV fluid hydration overnight and keep NPO. Recheck CMP, CBC and lipase in the AM. GI consult placed. Antiemetics and pain medications. prn. Plan will be to manage this flare and then once symp toms and lipase improved she will be able to reschedule her f/u with [facility] for furthermanagement. 2. Hypothyroidism: [employer] HEARING AIDS Levothyroxine 3. Depression: Continue Plavix 4. Chronic Migraines: Imitrex and Fioricet with codeine prn 5.Tachycardia: Presumed to be secondary to pain. Continue to monitor. DVT prophylaxis: PCDs Code status: full Chief Complaint: Abdominal pain History of Present Illness: Richar Culver is a 48 year old female who presents with abdominal pain. She has Hx of chronic pancreatitis dx 10-15 years ago and at initial dx had a cholecystectomy. She has done quite well since that time. However, this past year she has been hospitalized 3 times for pancreatitis. Her last hospita lization was 2 months ago. At discharge she was scheduled EUS which showed pancreas divisum. She is being followed by [facility] and tells me that she had an appointment scheduled for tomorrowmorning for discussion of Tx options with recent EUS diagnosis. Over the past 3-4 days, the patient has been experiencing nausea and pain across the low back /10 with mild to moderate abdominal pain and abdominal bloat. She tell me that this is very typical of her symptom onset of pancreatitis. She attempted NPO and rest at home hoping to avoid hospitalization however, today, her nausea and low back pain increased so she presented to the ED. The patient denies recent illness, fevers, hemoptysis, diarrhea. Her last bowel movement was yesterday and she tells me that it was normal. Patient underwent EUS on 05/04/13 to investigate recurrent pancreatitis, revealed pancreas divisum, no lymphadenopathy, masses, cysts or calcifications identified. Path results showed benign reactive ampullary mucosa with gastric foveolar metaplasia. In the ED patient was found to have lipase of 1397. BMP and LFTs are unremarkable. CBC is unremarkable with white count of 7.4. She was tachycardic with HR initially in the 120s. She is afebrile and normotensive. Patient will be admitted as an inpatient for treatment of acute pancreatitis. Past Medical History: Past Medical History Diagnosis Date ??? Pancreatitis 3 episode 1996- 2004 ??? Migraine depression Vitamin D deficiency Past Surgical History: Past Surgical History Procedure Date ??? Cholecystectomy 1992 ??? Orthopedic surgery cervical spine fusion ??? Duco Polisher surgery hysterectomy ??? Hc ugi endoscopy w eus 05/04/2013 Procedure: COMBINED ENDOSCOPIC ULTRASOUND, ESOPHAGOSCOPY, GASTROSCOPY, DUODENOSCOPY (EGD); Surgeon:Greta Joel MD; Location: [facility] Social History: History Social History ??? Marital Status: Spouse Name: N/A Number of Children: N/A ??? Years of Education: N/A Occupational History ??? Not on file. Social History Main Topics ??? Smoking status: Never Smoker ??? Smokeless tobacco: Never Used ??? Alcohol Use: Yes 3-4 drinks per month ??? Drug Use: No ??? Sexually Active: Other Topics Concern ??? Not on file Social History Narrative Lives in [place] with her and adult son and teenage [...] Medication Sig Last Dose Taking? Auth Provider lbxsnlrjap-hsdxjjk-nyxswddk (FIORINAL EQUIV) 50-325-40 MG TABS Take 1 tablet by mouth every 4 hours as needed. Yes Reported, Patient acetaminophen 650 MG TABS Take 500-1,000 mg by mouth every 6 hours as needed. Yes Corky Casas MD multivitamin, therapeutic with minerals (MULTI-VITAMIN) TABS Take 1 tablet by mouth daily. Yes Corky Casas MD PARoxetine HCl (PAXIL PO) Take 90 mg by mouth daily. Patient takes 3 tabs of 30mg=90mg Yes Reported,Patient Levothyroxine Sodium (SYNTHROID PO) Take 175 mcg by mouth daily. Yes Reported, Patient estrogens-methylTESTOSTERone (ESTRATEST HS) 0.625-1.25 MG per tablet Take 1 tablet by mouth daily. Yes Reported, Patient VITAMIN D, CHOLECALCIFEROL, PO Take 2,000 Units by mouth daily. Yes Reported, Patient SUMAtriptan Succinate Refill (IMITREX STATDOSE REFILL) 6 MG/0.5ML SOLN Inject 6 mg Subcutaneous once. May repeat in 1 hr as needed, do not exceed 2 doses per 24hrs Yes Dummy, Bfp User Review of Systems: A Comprehensive greater than 10 system review of systems was carried out. Pertinent positives and negatives are noted above. Otherwise negative for contributory information. Review Of Systems Skin: negative Eyes: negative Ears/Nose/Throat: negative Respiratory: No shortness of breath, dyspnea on exertion, cough, or hemoptysis Cardiovascular: negative Gastrointestinal: positive for dysphagia, nausea and excessive gas or bloating Genitourinary: negative Musculoskeletal: negative Neurologic: negative Psychiatric: negative Hematologic/Lymphatic/Immunologic: negative Endocrine: negative Physical Exam: Blood pressure 100/37, temperature 97.9 ??F (36.6 ??C), temperature source Temporal, resp. rate 20, weight 106.595 kg (235 lb), SpO2 96.00%. Exam: General: Alert, resting comfortably, no distress HEENT: Normal chepahlic/Atraumatic. Conjunctivas non injected. EOM's intact. PEERL. Posterior pharynx unremarkable. Buccal Mucosa and palate without lesions. Neck supple, no adenopathy. Respiratory: Lungs clear to ausculation. No wheezing, rhonchi or rales. Cardiac: Regular rate, rhythm. No murmurs, gallops Abdomen: Soft, obese but non distended and non tender. Bowel sound normal active. No pain with lightor deep palpation. No rebound pain or guarding. She notes excess feeling of pressure or gas when I palpate across the abdomen Neuro/Muscular: Upper and Lower motor strength equal bilaterally. No lateralizing signs Psychiatric: Normal Affect. Alert and oriented to time and place. Answers question appropriately/intelligenly. Extremities: No edema. Distal pulses 2+ Data: Lab 05/24/130 WBC 7.4 HGB 15.3 HCT 43.8 MCV 93 PLT 340 Lab 05/24/132109 NA 145* POTASSIUM 3.8 CHLORIDE 104 CO2 24 ANIONGAP 17 GLC 106* BUN 21 CR 0.71 GFRESTIMATED 87 GFRESTBLACK >90 SEJAL 9.0 MAG -- PHOS -- PROTTOTAL 7.7 ALBUMIN 4.4 BILITOTAL 0.3 ALKPHOS 84 AST 33 ALT 39 Lab 05/24/132109 LIPASE 1397* Nakita Mccallum This patient was seen and discussed with Dr. Mariscal who agrees with the current plans as outlined above. documented in this encounter Consult Notes Angela Mensah MD - 05/25/2013 9:47 AM CDTAssociated Order(s): GASTROENTEROLOGY IP CONSULT GASTROENTEROLOGY CONSULTATION Richar Culver [address] [id number] 48 year old female Admission Date/Time: 05/24/2013 Primary Care Provider: Yusef Lino Referring / Attending Physician: Mora Mariscal MD We were asked to see the patient in consultation by Dr. Mariscal for evaluation of recurrent acute pancreatitis. Source of information: Patient CC: Abdominal and back pain HPI: Richar Culver is a 48 year old female who has a history of recurrent acute pancreatitis. Herlast episode was in early March. She had an endoscopic ultrasound six weeks later, on May 04, performed by Dr. Joel. This revealed pancreas divisum as the likely cause of her pancreatitis. She had been scheduled to meet with one of our biliary physicians, Dr. Perez, in clinic today but yesterday she developed recurrent abdominal pain and back pain that felt similar to her previous episodes of pancreatitis. She came to the emergency room for further evaluation and her lipase was around 1400. She was admitted to the hospital overnight. This morning she states her symptoms have not changed significantly. She is having more back pain than abdominal pain. No fevers, chills or sweats. No nausea/vomiting. PAST MEDICAL HISTORY: Patient Active Problem List Diagnosis Date Noted ??? Pancreatitis 03/25/2013 Priority: High ??? Migraine headache 03/25/2013 ROS: A comprehensive ten point review of systems was negative aside from those in mentioned in the HPI. MEDICATIONS: Current Facility-Administered Medications Medication ??? naloxone (NARCAN) injection 0.1-0.4 mg ??? Lidocaine 1 % injection 1 mL ??? lidocaine 4 % (LMX4) cream ??? sodium chloride (PF) 0.9% PF flush 3 mL ??? sodium chloride (PF) 0.9% PF flush 3 mL ??? 0.9 % sodium chloride IV solution ??? acetaminophen (TYLENOL) tablet 650 mg ??? oxyCODONE (ROXICODONE) immediate release tablet 5-10 mg ??? HYDROmorphone (PF) (DILAUDID) injection 0.3-0.5 mg ??? senna-docusate (SENOKOT-S;PERICOLACE) 8.6-50 MG per tablet 1-2 tablet ??? polyethylene glycol (MIRALAX/GLYCOLAX) packet 17 g ??? ondansetron (ZOFRAN-ODT) disintegrating tablet 4 mg Or ??? ondansetron (ZOFRAN) injection 4 mg ??? prochlorperazine (COMPAZINE) injection 5-10 mg Or ??? prochlorperazine (COMPAZINE) tablet 5-10 mg Or ??? prochlorperazine (COMPAZINE) suppository 25 mg ??? ixjnhtfxmv-lmxkgzi-qwlhkmfo (FIORINAL EQUIV) 50-325-40 MG tablet 1 tablet ??? estrogens-methylTESTOSTERone (ESTRATEST HS) 0.625-1.25 MG per tablet 1 tablet ??? levothyroxine (SYNTHROID, LEVOTHROID) tablet 175 mcg ??? diphenhydrAMINE (BENADRYL) injection 25 mg ??? promethazine (PHENERGAN) tablet 25 mg ??? PARoxetine (PAXIL) tablet 80 mg And ??? PARoxetine (PAXIL) tablet 10 mg ??? DISCONTD: ondansetron (ZOFRAN) tablet 4 mg ??? DISCONTD: PARoxetine (PAXIL) 90 mg ??? DISCONTD: promethazine (PHENERGAN) tablet 25 mg ??? sodium chloride 0.9 % BOLUS 1,000 mL ??? HYDROmorphone (PF) (DILAUDID) injection 0.5 mg ??? promethazine (PHENERGAN) tablet 25 mg ??? ondansetron (ZOFRAN) injection 4 mg [...] Brother ??? Diabetes Brother PHYSICAL EXAM: General Sitting up in bed, NAD, A&Ox3 BP 113/82 Pulse 104 Temp 96.1 ??F (35.6 ??C) (Oral) Resp 18 Ht 1.702 m (5' 7) Wt 105.688 kg (233 lb) BMI 36.49 kg/m2 SpO2 96% PHYSICAL EXAM: SKIN: no suspicious lesions, rashes, [...] No murmurs, clicks gallops or rub GASTROINTESTINAL: +BS, soft, minimal epigastric TTP, ND, no HSM, no masses/guarding/rebound JOINT/EXTREMITIES: extremities normal- no gross deformities noted, gait normal and normal muscle tone NEURO: Gait normal. Reflexes normal and symmetric. Sensation grossly WNL. PSYCH: no abnormal anxiety/depression ADDITIONAL COMMENTS: I reviewed the patient's new clinical lab test results. Recent Labs Lab Test 05/25/1365705/24/13210904/18/13 181 WBC 5.2 7.4 6.6 HGB 12.9 15.3 14.6 MCV 94 93 92 PLT 287 340 324 INR -- -- -- Recent Labs Lab Test 05/25/1365705/24/13210904/18/13 1818 POTASSIUM 3.9 3.8 3.4 CHLORIDE 108 104 103 CO2 24 24 26 BUN 20 21 17 ANIONGAP 13 17 14 GLUCOSE -- -- -- Recent Labs Lab Test 05/25/1365705/24/13210904/18/13189904/18/13181703/24/13211410/07/08 2150 ALBUMIN 3.5* 4.4 -- 4.4 -- -- BILITOTAL 0.2 0.3 -- 0.3 -- -- BILIDIRECT -- -- -- -- -- -- ALT 39 39 -- 56* -- -- AST 29 33 -- 37 -- -- PROTEIN -- -- 10* -- 10* 10* LIPASE 1344* 1397* -- 86 -- -- AMYLASE -- -- -- -- -- -- I reviewed the patient's new imaging results. None. I discussed the patient plan with Dr. Praveena Mensah and Dr. Greta Joel (biliary). CONSULTATION ASSESSMENT AND PLAN: Recurrent acute pancreatitis Assessment: The likely cause is pancreas divisum. This seems to be a mild episode as her lipase wasnot significantly elevated and she is not in severe pain. I discussed divisum with the patient and gave her information regarding this condition. Plan: Typical pancreatitis cares (aggressive IVF, NPO, pain and nausea control). Once her symptoms are improving, we can start clears. Hopefully within the next 24-48 hrs she will improve and, once tolerating PO, can d/c home. She will need to f/u in our GI clinic with Dr. Perez to discuss treatment options. Thank you for asking us to participate in the care of this patient. Jus Marks PA-C [facility] I agree with the assessment and plan of Jus Marks. Patient continues with some abdominal discomfort, but improving. NAD and lying comfortably in bed. No abdominal discomfort. Plan as describedabflower. Praveena Mensah MD [facility] documented in this encounter ED Notes Mikaela Zepeda MD - 05/25/2013 12:00 AM CDT CHIEF COMPLAINT: Abdominal pain. HISTORY OF PRESENT ILLNESS: Ms. Culver is a 48-year-old female with a history of 3-4 previous episodes of pancreatitis believed to be secondary to a pancreas divisum for which she had an ERCP once many years ago. Her most recent episode was late February and early March and since then she has had intermittent symptoms for which she would make herself n.p.o. and symptoms would not be severe and would improve. Her pain is currently 10/10 and epigastric. Feels like previous pancreatitis. Her symptoms recurred yesterday. She stopped eating and the symptoms have unfortunately continued to progress. She reports having had an upper endoscopic ultrasound performed earlier this month which seemed to confirm that the pancreas divisum, but was otherwise nondiagnostic. The patient has had nausea without significant vomiting. There has been no blood in her vomit or her stools. She has been urinating normally. She denies having a fever. PAST MEDICAL HISTORY: 1. Status post pancreatitis. 2. Migraines. PAST SURGICAL HISTORY: 1. Cholecystectomy. 2. Cervical surgical fusion. 3. Hysterectomy. SOCIAL HISTORY: She denies tobacco use and admits to 3-4 drinks per month. She is here with her . REVIEW OF SYSTEMS: A complete 10-point review of systems was performed. Pertinent positives and negatives are included in the HPI and below. GENERAL: No fevers, chills. HEENT: Unremarkable. CARDIAC: Negative. PULMONARY: Negative. GASTROINTESTINAL: As above. Normal bowel movements. GENITOURINARY: Negative. NEURO: No lightheadedness, weakness or dizziness. No current headache. PHYSICAL EXAMINATION: VITAL SIGNS: Blood pressure of 140/78, respiratory rate 20, O2 sats 98% on room air. GENERAL: The patient is pleasant and well groomed. She appears uncomfortable. HEENT: Posterior oropharynx is clear. NECK: Supple, no cervical adenopathy. CARDIOVASCULAR: Regular rate and rhythm. LUNGS: Clear to auscultation bilaterally. ABDOMEN: Soft, but she does have significant epigastric tenderness, no guarding. MUSCULOSKELETAL: She has no pretibial edema or calf tenderness. NEUROLOGIC: She is alert and oriented, answering questions appropriately. She is moving all extremities purposely and forcefully. SKIN: Warm and dry. PSYCHIATRIC: Her affect is normal. EMERGENCY DEPARTMENT COURSE: 1. An IV was placed. Labs were drawn and sent. Differential diagnosis was broad and included but wasnot limited to pancreatitis. 2. Gastritis. 3. Dehydration. 4. Bowel obstruction. ED EVALUATION: This patient presents with epigastric abdominal pain. The differential diagnosis is broad and includes: Appendicitis, cholecystitis, peptic ulcer disease, diverticulitis, bowel obstruction, ischemia, pancreatitis, amongst others. The patient's electrolytes were remarkable for a mildly elevated sodium of 145, elevated glucose of 106. Her lipase was significantly elevated at 1,397. Whitecount was 7.4, hemoglobin 15.8. Given her previous history of pancreatitis and symptoms that are consistent with this as well as the elevated lipase today, the patient was diagnosed with pancreatitis and will require admission for IV hydration and parenteral narcotics for symptom control as well as antiemetics. She was scheduled to have a consultation tomorrow with a chief ophthalmic technician to discuss further treatment for her recurrent pancreatitis and pancreas divisum. I have spoken with Nakita Mccallum PA-C [facility] and [facility] has accepted this patient for continued evaluation, monitoring and management. FINAL DIAGNOSES: Pancreatitis. PLAN: Admit as noted above. MIKAELA ZEPEDA MD MT: [id number] Name: RICHAR CULVER Account: [id number] : 1965 Visit Date: 05/24/2013 Document: [id number] Korina Stack RN - 05/24/2013 8:47 PM CDT Alert and oriented x 3 airway,breathing and circulation intact Upper abd pain which goes into her back hx of pancreatitis documented in this encounter Miscellaneous Notes Plan of Care - Nisha Cuevas RN - 05/27/2013 12:31 PM CDT Patient verbalized understanding of discharge instructions and education on new medication. Plan of Care - Nisha Cuevas RN - 05/27/2013 9:54 AM CDT Patient eating very large breakfast this am. Requesting that IV fluids be stopped as she stated she is getting enough orally. Continues to have headache and chronic pain. No nausea reported following breakfast. Plan of Care - Hernando Andrew RN - 05/27/2013 7:56 AM CDT Problem: IP GENERAL POC-ADULT,OB,BEHAVIORAL FVCPM Goal: Individualization/Patient-Specific Goal (Adult,OB,Behavioral The patient and/or their customer field representative will achieve their patient-specific goals related to the plan of care. The patient-specific goals include: RN: 1. Recently admitted 6/ for pancreatitis. 2. Lives with spouse. 3. Moderate falls risk. Patient alert and oriented pain adequately controled with PO meds, denies nausea, voiding adequatelyin bathroom, patient slept comfortably this shift. Plan of Care - Barbara Benson RN - 05/26/2013 10:07 PM CDT Problem: IP GENERAL POC-ADULT,OB,BEHAVIORAL FVCPM Goal: Individualization/Patient-Specific Goal (Adult,OB,Behavioral The patient and/or their customer field representative will achieve their patient-specific goals related to the plan of care. The patient-specific goals include: RN: 1. Recently admitted 6/2 for pancreatitis. 2. Lives with spouse. 3. Moderate falls risk. Outcome: Improving VSS et afebrile on room air. IVF at 125 infusing. Pt is oriented and up self. Pt c/o headaches that improve with prn Fiorinol and IV dilaudid. Pt c/o intermittent nausea controlled with prn antiemetics. Advanced to low residue diet. Plan is to go tomorrow. Plan of Care - Nisha Cuevas RN - 05/26/2013 6:03 PM CDT Patient has continued to C/O headache and intermittent nausea. Through out shift patient has had dilaudid, fiorinal,oxycodone for pain. Reports dull headache. Ate low residue diet and reported nausea 25 min later. Plan of Care - Nisha Cuevas RN - 05/26/2013 2:11 PM CDT Patient reports headache this am. Requesting 2 fiorinal. Order obtained. Fluids change to D5.45ns with 20 kcl at 150cc/hr. Clear liquid lunch followed by loose stools and GI spasms. Antiemetic given. Patient agreed to switch IV dilaudid to oral oyicodone following MD recomendations. Plan of Care - Amanda Meng RN - 05/26/2013 5:12 AM CDT Problem: IP GENERAL POC-ADULT,OB,BEHAVIORAL FVCPM Goal: Individualization/Patient-Specific Goal (Adult,OB,Behavioral The patient and/or their customer field representative will achieve their patient-specific goals related to the plan of care. The patient-specific goals include: RN: 1. Recently admitted 03/26 for pancreatitis. 2. Lives with spouse. 3. Moderate falls risk. Orientation x4 VS Stable, afebrile O2 Ra at 94% LS clear BS active Skin intact Activity I IVF NS running at 150/hr Pain c/o chronic migraines and back pain, meds given appropriately Plan Continue POC Plan of Care - Corie Castillo RN - 05/25/2013 9:48 PM CDT Problem: Pancreatitis, Acute/Chronic (Adult, Obstetrics) Goal: Prevent/Manage Potential Problems Patient rating pain 8/10 in lower back, dilaudid and fiorinal given for pain along with phenergan and compazine for nausea and benadryl x1 for itching. Up Independent in room, A/Ox3. IVF at 150cc/hr.Tolerating a NPO diet. Lipase is 1344, GI is following Plan of Care - Sophia Farnsworth RN - 05/25/2013 2:49 PM CDT Problem: IP GENERAL POC-ADULT,OB,BEHAVIORAL FVCPM Goal: Individualization/Patient-Specific Goal (Adult,OB,Behavioral The patient and/or their customer field representative will achieve their patient-specific goals related to the plan of care. The patient-specific goals include: RN: 1. Recently admitted 6/2 for pancreatitis. 2. Lives with spouse. 3. Moderate falls risk. Outcome: Improving Pain controled with IV Dilaudid 0.5 x1. Promethazine PO given for nausea with relief. Fiorinal givenfor GALINDO. VS stable, continue IV fluid and NPO. GI involved. Plan of Care - Hillary Gomez RN - 05/25/2013 7:45 AM CDT Problem: IP GENERAL POC-ADULT,OB,BEHAVIORAL FVCPM Goal: Individualization/Patient-Specific Goal (Adult,OB,Behavioral The patient and/or their customer field representative will achieve their patient-specific goals related to the plan of care. The patient-specific goals include: RN: 1. Recently admitted 6/2 for pancreatitis. 2. Lives with spouse. 3. Moderate falls risk. Outcome: No Change Pt admitted this shift with pancreatitis/abdominal pain. Alert and oriented. Up with SBA. VSS. C/o pain of 8-9/10 in abdomen. Pain improved with IV Dilaudid. Also c/o nausea. Given PO Phenergan and IV Compazine each x 1 with some improvement. BS positive throughout. Had a normal BM yesterday morning. Pt NPO and IVF running at 150 mL/hr. Plan for GI to see and for supportive measures. POC reviewed with patient. Will continue to monitor. Provider Notification - Hillary Gomez RN - 05/25/2013 1:09 AM CDT Note sent to admitting pager. New admission. Pt stated she is itchy and would like some benedryl orsomething for this. Please address. Dr. Bass placed an order for 25 mg of IV Benadryl every 6 hours as needed. Pharmacy-Admission Medication History - [facility] - 05/24/2013 10:36 PM CDT Admission medication history interview status for this patient is complete. See [facility] admission navigator for allergy information, prior to admission medications and immunization status. Medication history interview source(s):Patient Medication history resources (including written lists, pill bottles, clinic record):None Medication history source reliability:Good Primary pharmacy:[facility] Changes made to [employer] medication list: Added: excedrin Deleted: - Changed: - Actions taken by pharmacist (provider contacted, etc):None Additional medication history information:None Medication reconciliation/reorder completed by provider prior to medication history? No Time spent in this activity: 15 min Prior to Admission medications Medication Sig Last Dose Taking? Auth Provider [id number] (EXCEDRIN MIGRAINE) 250-250-65 MG per tablet Take 2 tablets by mouth every 8 hours as needed Yes Dummy, Bfp User [id number] (FIORINAL EQUIV) 50-325-40 MG TABS Take 1 tablet by mouth every 4 hours as needed. 05/24/2013 at 2x Yes Reported, Patient multivitamin, therapeutic with minerals (MULTI-VITAMIN) TABS Take 1 tablet by mouth daily. 05/23/2013t Unknown Yes Corky Casas MD PARoxetine HCl (PAXIL PO) Take 90 mg by mouth daily. Patient takes 3 tabs of 30mg=90mg 05/24/2013 at Unknown Yes Reported, Patient Levothyroxine Sodium (SYNTHROID PO) Take 175 mcg by mouth daily. 05/24/2013 at Unknown Yes Reported, Patient estrogens-methylTESTOSTERone (ESTRATEST HS) 0.625-1.25 MG per tablet Take 1 tablet by mouth daily. 05/24/2013 at Unknown Yes Reported, Patient VITAMIN D, CHOLECALCIFEROL, PO Take 2,000 Units by mouth daily. 05/24/2013 at Unknown Yes Reported, Patient SUMAtriptan Succinate Refill (IMITREX STATDOSE REFILL) 6 MG/0.5ML SOLN Inject 6 mg Subcutaneous once. May repeat in 1 hr as needed, do not exceed 2 doses per 24hrs 05/23/2013 at Unknown Yes Dummy, Bfp User acetaminophen 650 MG TABS Take 500-1,000 mg by mouth every 6 hours as needed. Corky Casas MD documented in this encounter Plan of Treatment Not on filedocumented as of this encounter Procedures Procedure Name Priority Date/Time Associated Comments Diagnosis LIPASE Routine 05/26/2013 8:45 AM Results f or this CDT procedure are i n the results section. BASIC METABOLIC PANEL Routine 05/26/2013 8:45 AM Results for this CDT procedure are i n the results section. CBC WITH PLATELETS & Routine 05/25/2013 6:58 AM R esults for this DIFFERENTIAL CDT procedure are i n the results section. LIPASE Routine 05/25/2013 6:58 AM Results f or this CDT procedure are i n the results section. COMPREHENSIVE Routine 05/25/2013 6:58 AM Results for this METABOLIC PANEL CDT procedure ar e in the results section. CBC WITH PLATELETS & STAT 05/24/2013 9:10 PM R esults for this DIFFERENTIAL CDT procedure are i n the results section. LIPASE STAT 05/24/2013 9:10 PM Results f or this CDT procedure are i n the results section. COMPREHENSIVE STAT 05/24/2013 9:10 PM Results for this METABOLIC PANEL CDT procedure ar e in the results section. documented in this encounter Results (ABNORMAL) Basic metabolic panel (05/26/2013 8:45 AM CDT) Analysis Performed At Patho logist Time Signature Sodium 142 133 - 144 [place] mmol/L [facility] Potassium 4.0 3.4 - 5.3 [place] mmol/L [facility] Chloride 107 94 - 109 [place] mmol/L [facility] Carbon Dioxide 22 20 - 32 [facility] mmol/L [facility] Anion Gap 13 6 - 17 [place] mmol/L [facility] Glucose 74 60 - 99 [place] mg/dL [facility] Urea Nitrogen 8 7 - 30 [place] mg/dL [facility] Creatinine 0.49 (L) 0.52 - [facility] 1.04 mg/dL [facility] GFR Estimate >90 >60 [place] mL/min/1.7 [facility] m2 [facility] GFR Estimate If >90 >60 [place] Black mL/min/1.7 [facility] m2 [facility] Calcium 7.9 (L) 8.5 - 10.4 [place] mg/dL [facility] Specimen Anatomical Collection Method Collection Time Receive d Time (Source) Location / / Volume Laterality Blood specimen 05/26/2013 8:45 AM 013 8:47 (specimen) CDT AM CDT Corky Casas MD LAB - BLOOD ORDERABLES Performing Organization Address City/State/ZIP Code Phon e Number M [facility] [address] [place] [id number] [facility] Lipase (05/26/2013 8:45 AM CDT) P athologist Signature Lipase 43 20 - 250 [facility] U/L [facility] Comment: Results confirmed by repeat roro t Specimen Anatomical Collection Method Collection Time Receive d Time (Source) Location / / Volume Laterality Blood specimen 05/26/2013 8:45 AM 013 8:47 (specimen) CDT AM CDT Corky Casas MD LAB - BLOOD ORDERABLES Performing Organization Address City/State/ZIP Code Phon e Number M [facility] [address] [place], [place] [address] [facility] LAB (ABNORMAL) Lipase (05/25/2013 6:58 AM CDT) P athologist Signature Lipase 1,344 (H) 20 - 250 [place] [facility] Specimen Anatomical Collection Method Collection Time Receive d Time (Source) Location / / Volume Laterality Blood specimen 05/25/2013 6:58 AM 013 7:17 (specimen) CDT AM CDT Nakita Mccallum PA-C LAB - BLOOD ORDERABLES Performing Organization Address City/State/ZIP Code Phon janneth Alan [facility] [address], [place] [address] [facility] CBC with platelets differential (05/25/2013 6:58 AM CDT) Patholo gist Method Time Signature WBC 5.2 4.0 - [place] 11.0 [facility] 10e9/[facility] RBC Count 4.05 3.8 - 5.2 [place] 10e12/L [facility] Hemoglobin 12.9 11.7 - [place] 15.7 g/dL [facility] Hematocrit 38.2 35.0 - [place] 47.0 % [facility] MCV 94 78 - 100 [place] fl [facility] MCH 31.9 26.5 - [facility] 33.0 pg [facility] MCHC 33.8 31.5 - [place] 36.5 g/dL [facility] RDW 13.3 10.0 - [place] 15.0 % [facility] Platelet Count 287 150 - 450 [place] 10e9/L [facility] Diff Method Automated [facility] % Neutrophils 36.4 % [facility] % Lymphocytes 49.5 % [facility] % Monocytes 7.3 % [facility] % Eosinophils 6.0 % [facility] % Basophils 0.8 % [facility] % Immature 0.0 % [place] Granulocytes [facility] Absolute 1.9 1.6 - 8.3 [place] Neutrophil 10e9/L [facility] Absolute 2.6 0.8 - 5.3 [facility] Lymphocytes 10e9/L [facility] Absolute 0.4 0.0 - 1.3 [place] Monocytes 10e9/L [facility] Absolute 0.3 0.0 - 0.7 [place] Eosinophils 10e9/L [facility] Absolute 0.0 0.0 - 0.2 [place] Basophils 10e9/L [facility] Abs Immature 0.0 0 - 0.4 [place] Granulocytes 10e9/L [facility] Specimen Anatomical Collection Method Collection Time Receive d Time (Source) Location / / Volume Laterality Blood specimen 05/25/2013 6:58 AM 013 7:17 (specimen) CDT AM CDT Nakita Mccallum PA-C LAB - BLOOD ORDERABLES Performing Organization Address City/State/ZIP Code Phon e Number M [facility] [address] [place] [address] [facility] LAB (ABNORMAL) Comprehensive metabolic panel (05/25/2013 6:58 AM CDT) Analysis Performed At Patho logist Time Signature Sodium 145 (H) 133 - 144 [place] mmol/L [facility] Potassium 3.9 3.4 - 5.3 [place] mmol/L [facility] Chloride 108 94 - 109 [place] mmol/L [facility] Carbon Dioxide 24 20 - 32 [place] mmol/L [facility] Anion Gap 13 6 - 17 [place] mmol/L [facility] Glucose 76 60 - 99 [place] mg/dL [facility] Urea Nitrogen 20 7 - 30 [place] mg/dL [facility] Creatinine 0.65 0.52 - [facility] 1.04 mg/dL [facility] GFR Estimate >90 >60 [place] mL/min/1.[address] LAB GFR Estimate If >90 >60 [place] Black mL/min/1.[address] LAB Calcium 8.0 (L) 8.5 - 10.4 [place] mg/dL [facility] Bilirubin Total 0.2 0.2 - 1.3 [place] mg/dL [facility] Albumin 3.5 (L) 3.9 - 5.1 [place] g/dL [facility] Protein Total 6.2 (L) 6.8 - 8.8 [place] g/dL [facility] Alkaline 67 40 - 150 [place] Phosphatase U/L [facility] ALT 39 0 - 50 U/L [facility] AST 29 0 - 45 U/L [facility] Specimen Anatomical Collection Method Collection Time Receive d Time (Source) Location / / Volume Laterality Blood specimen 05/25/2013 6:58 AM 013 7:17 (specimen) CDT AM CDT Nakita Mccallum PA-C LAB - BLOOD ORDERABLES Performing Organization Address City/[facility] Phon e Number [facility] [address], [place] [address] [phone] [place] [address] LAB (ABNORMAL) Lipase (05/24/2013 9:10 PM CDT) P athologist Signature Lipase 1,397 (H) 20 - 250 [place] U/L [facility] Specimen Anatomical Collection Method Collection Time Receive d Time (Source) Location / / Volume Laterality Blood specimen 05/24/2013 9:10 PM 013 9:34 (specimen) CDT PM CDT Mikaela Zepeda MD LAB - BLOOD ORDERABLES Performing Organization Address City/[facility] Phon e Jone [facility] [address], [place] [phone] [place] [address] LAB (ABNORMAL) Comprehensive metabolic panel (05/24/2013 9:10 PM CDT) Analysis Performed At Patho logist Time Signature Sodium 145 (H) 133 - 144 [place] mmol/L [facility] Potassium 3.8 3.4 - 5.3 [place] mmol/L [facility] Chloride 104 94 - 109 [place] mmol/L [facility] Carbon Dioxide 24 20 - 32 [place] mmol/L [facility] Anion Gap 17 6 - 17 [place] mmol/L [facility] Glucose 106 (H) 60 - 99 [place] mg/dL [facility] Urea Nitrogen 21 7 - 30 [place] mg/dL [facility] Creatinine 0.71 0.52 - [facility] 1.04 mg/dL [facility] GFR Estimate 87 >60 [place] mL/min/1.[address] LAB GFR Estimate If >90 >60 [place] Black mL/min/1.[address] LAB Calcium 9.0 8.5 - 10.4 [place] mg/dL [facility] Bilirubin Total 0.3 0.2 - 1.3 [place] mg/dL [facility] Albumin 4.4 3.9 - 5.1 [place] g/dL [facility] Protein Total 7.7 6.8 - 8.8 [place] g/dL [facility] Alkaline 84 40 - 150 [place] Phosphatase U/L [facility] ALT 39 0 - 50 U/L [facility] AST 33 0 - 45 U/L [facility] Specimen Anatomical Collection Method Collection Time Receive d Time (Source) Location / / Volume Laterality Blood specimen 05/24/2013 9:10 PM 013 9:34 (specimen) CDT PM CDT Mikaela Zepeda MD LAB - BLOOD ORDERABLES Performing Organization Address City/State/ZIP Code Phon e Number M [facility] [address] [place] [address] [facility] CBC with platelets differential (05/24/2013 9:10 PM CDT) [facility] gist Method Time Signature WBC 7.4 4.0 - [place] 11.0 [facility] 10e9/[facility] RBC Count 4.71 3.8 - 5.2 [place] 10e12/L [facility] Hemoglobin 15.3 11.7 - [place] 15.7 g/dL [facility] Hematocrit 43.8 35.0 - [facility] 47.0 % [facility] MCV 93 78 - 100 [place] fl [facility] MCH 32.5 26.5 - [facility] 33.0 pg [facility] MCHC 34.9 31.5 - [place] 36.5 g/dL [facility] RDW 13.0 10.0 - [facility] 15.0 % [facility] Platelet Count 340 150 - 450 [place] 10e9/L [facility] Diff Method Automated [facility] % Neutrophils 36.9 % [facility] % Lymphocytes 48.1 % [facility] % Monocytes 8.0 % [facility] % Eosinophils 6.2 % [facility] % Basophils 0.7 % [facility] % Immature 0.1 % [place] Granulocytes [facility] Absolute 2.7 1.6 - 8.3 [place] Neutrophil 10e9/L [facility] Absolute 3.6 0.8 - 5.3 [place] Lymphocytes 10e9[facility] Absolute 0.6 0.0 - 1.3 [place] Monocytes 10e9/[facility] Absolute 0.5 0.0 - 0.7 [place] Eosinophils 10e9[facility] Absolute 0.1 0.0 - 0.2 [place] Basophils [address] [place] [address] LAB Abs Immature 0.0 0 - 0.4 [place] Granulocytes [address] [place] [address] LAB Specimen Anatomical Collection Method Collection Time Receive d Time (Source) Location / / Volume Laterality Blood specimen 05/24/2013 9:10 PM 013 9:34 (specimen) CDT PM CDT Mikaela Zepeda MD LAB - BLOOD ORDERABLES Performing Organization Address City/State/ZIP Code Phon e Number [facility] [address] [address] [facility] documented in this encounter Visit Diagnoses Diagnosis Pancreatitis - Primary Acute pancreatitis Pancreatitis Acute pancreatitis Migraine headache Migraine, unspecified, without mention o f intractable migraine without mention of status migrainosus documented in this encounter Administered Medications Inactive Administered Medications - up to 3 most recent administrations Medication Order MAR Action Action Date Dose Rate Site 0.9 % sodium chloride IV New Bag 05/24/2013 11:41 PM 1,000 mLs 12 5 mL/hr solution CDT at 125 mL/hr, Intravenous, CONTINUOUS, Administer after the bolus., Starting on Wed05/24/13 at 2130, Until Wed05/25/13 at 0054 0.9 % sodium chloride IV New Bag 05/26/2013 2:16 AM CDT 1,000 mLs 150 mL/hr solution at 150 mL/hr, Intravenous, CONTINUOUS, Starting on Wed05/25/13 at 0100, Until Wed05/26/13 at 0842 Rate/Dose Verify 05/26/2013 12:20 AM CDT 1,000 mLs 150 mL/hr New Bag 05/25/2013 7:39 PM CDT 1,000 mLs 150 mL/hr lvioeeyhyt-hnykofi-qroxnvvn (FIORINAL) per Given 05/26 4:28 AM CDT 1 capsule capsule 1 capsule 1 capsule, Oral, EVERY 4 HOURS PRN, headaches, Starting on Wed05/25/13 at 1031 Given 05/26/2013 12:18 AM CDT 1 capsule Given 05/25/2013 7:06 PM CDT 1 capsule okmajbrsvt-grfjzzw-jrwfegfe (FIORINAL) Given 05/27/2013 11:0 0 AM CDT 2 capsules per capsule 1-2 capsule 1-2 capsule, Oral, EVERY 4 HOURS PRN, headaches, Starting on Wed05/26/13 at 0842 Given 05/27/2013 4:45 AM CDT 2 capsules Given 05/26/2013 7:29 PM CDT 2 capsules dextrose 5 % and 0.45 % NaCl + KCl 20 New Bag 05/27/2013 12:02 AM CDT 125 mL/hr mEq/L at 125 mL/hr, Intravenous, CONTINUOUS, Starting on Wed05/26/13 at 0845, Until Wed05/27/13 at 1458 Rate/Dose Verify 05/26/2013 7:15 PM CDT 125 mL/hr New Bag 05/26/2013 3:54 PM CDT 125 mL/hr diphenhydrAMINE (BENADRYL) injection 25 mg Given 05/25/2013 8:48 PM CDT 25 mg 25 mg, Intravenous, EVERY 6 HOURS PRN, itching, Starting on Wed05/25/13 at 0113 Given 05/25/2013 1:53 AM CDT 25 mg estrogens-methylTESTOSTERone (ESTRATEST HS) Given 12/2012 8:42 AM CDT 1 tablet 0.625-1.25 MG per tablet 1 tablet 1 tablet, Oral, DAILY, First dose on Wed05/25/13 at 0900 Given 05/26/2013 8:52 AM CDT 1 tablet Given 05/25/2013 8:34 AM CDT 1 tablet HYDROmorphone (PF) (DILAUDID) 0.5 MG/0.5 ML injection Starting on Wed05/24/13 at 2340, For 1 dose, ALEXANDRA CUEVAS: nichol override HYDROmorphone (PF) (DILAUDID) injection Given 05/26/2013 10:00 P M CDT 0.3 mg 0.3-0.5 mg 0.3-0.5 mg, Intravenous, EVERY 2 HOURS PRN, severe pain, Starting on Wed05/25/13 at 0054, Hold while on PROJECT ESTIMATOR. Given 05/26/2013 5:33 PM CDT 0.3 mg Given 05/26/2013 8:53 AM CDT 0.3 mg HYDROmorphone (PF) (DILAUDID) injection 0.5 Given 04/26 11:40 PM CDT 0.5 mg mg 0.5 mg, Intravenous, EVERY 15 MIN PRN, moderate to severe pain, Starting on Wed05/24/13 at 2125, For 3 doses Given 05/24/2013 10:58 PM CDT 0.5 mg Given 05/24/2013 10:25 PM CDT 0.5 mg levothyroxine (SYNTHROID, LEVOTHROID) tablet Given 12/2012 8:42 AM CDT 175 mcg 175 mcg 175 mcg, Oral, DAILY, First dose on Wed05/25/13 at 0900 Given 05/26/2013 8:52 AM CDT 175 mcg Given 05/25/2013 8:33 AM CDT 175 mcg ondansetron (ZOFRAN) injection 4 mg Given 05/24/2013 10:58 PM CDT 4 mg 4 mg, Intravenous, ONCE, Administer over 2-5 Minutes, On Wed05/24/13 at 2300, For 1 dose oxyCODONE (ROXICODONE) immediate release Given 05/27/2013 12:18 PM CDT 10 mg tablet 5-10 mg 5-10 mg, Oral, EVERY 3 HOURS PRN, moderate to severe pain, Starting on Wed05/25/13 at 0054 Given 05/27/2013 8:50 AM CDT 10 mg Given 05/27/2013 4:44 AM CDT 10 mg PARoxetine (PAXIL) tablet 10 mg Given 05/27/2013 8:42 AM CDT 10 mg 10 mg, Oral, DAILY, First dose on Wed05/25/13 at 0900, Total dose = 90mg. Give with Paroxetine 4 x 20mg. Given 05/26/2013 8:51 AM CDT 10 mg Given 05/25/2013 11:15 AM CDT 10 mg PARoxetine (PAXIL) tablet 80 mg Given 05/27/2013 8:41 AM CDT 80 mg 80 mg, Oral, DAILY, First dose on Prema 05/25/13 at 0900, Total dose = 90mg. Give with Paroxetine 10mg. Given 05/26/2013 8:50 AM CDT 80 mg Given 05/25/2013 11:14 AM CDT 80 mg prochlorperazine (COMPAZINE) injection 5 -10 mg Given 05/26/2013 5:25 PM CDT 5 mg 5-10 mg, Intravenous, EVERY 6 HOURS PRN, nausea, vomiting, Starting on Wed05/25/13 at 0054, This is Step 2 of the nausea and vomiting protocol. If nausea not resolved in 15 minutes, give Metoclopramide if ordered (step 3 of nausea and vomiting protocol) Given 05/25/2013 8:40 PM CDT 10 mg Given 05/25/2013 6:33 AM CDT 5 mg promethazine (PHENERGAN) tablet 25 mg Given 05/24/2013 9:41 PM CDT 25 mg 25 mg, Oral, ONCE, On Wed05/24/13 at 2130, For 1 dose promethazine (PHENERGAN) tablet 25 mg Given 05/26/2013 12:11 PM CDT 25 mg 25 mg, Oral, EVERY 6 HOURS PRN, nausea, Starting on Wed05/25/13 at 0340 Given 05/25/2013 5:52 PM CDT 25 mg Given 05/25/2013 11:13 AM CDT 25 mg sodium chloride (PF) 0.9% PF flush 3 mL Given 05/25/2013 1:27 AM CDT 3 mLs 3 mL, Intravenous, EVERY 8 HOURS, First dose on Wed05/25/13 at 0100, And Q1H PRN, to lock peripheral IV dormant line. sodium chloride 0.9 % BOLUS New Bag 05/24/2013 9:41 PM CDT 1,000 m Ls 1000 mL/hr 1,000 mL Intravenous, 1,000 mL, ONCE, at 1,000 mL/hr, Administer over 1 Hours, On Wed05/24/13 at 2130, For 1 dose documented in this encounter Active and Recently Administered Medications Times are shown in CDT. Scheduled Medication Order 05/25/2013 05/26/2013 05/27/2013 estrogens-methylTESTOSTERone (ESTRATEST HS) 0.625-1.25 MG per tablet 1 tablet (CANCELED) 0834 (Given - Provider: Sophia Farnsworth RN) 0852 (Cabrera iven - Provider: Nisha Cuevas RN) 0842 (Given - Provider: Libby Gaines LPN) 1 tablet, Oral, DAILY, First dose on Prema 05/25/13 at 0900 levothyroxine (SYNTHROID, LEVOTHROID) tablet 175 mcg ( CANCELED) 0833 (Given - Provider: Sophia Farnsworth RN) 0852 (Given - Provider: Nisha Cuevas RN) 0842 (Given - Provider: Libby Gaines LPN) 175 mcg, Oral, DAILY, First dose on Prema 05/25/13 at 0900 PARoxetine (PAXIL) tablet 10 mg (CANCELED) 1115 (Given - Provider: Sophia Farnsworth RN) 0851 (Given - Provider: Nisha Cuevas RN) 0842 (Cabrera iven - Provider: Libby Gaines LPN) 10 mg, Oral, DAILY, First dose on Prema 05/25/13 at 0900, Total dose = 90mg. Give with Paroxetine 4 x 20mg. PARoxetine (PAXIL) tablet 80 mg (CANCELED) 1114 (Given - Provider: Sophia Farnsworth RN) 0850 (Given - Provider: Nisha Cuevas RN) 0841 (G iven - Provider: Libby Gaines LPN) 80 mg, Oral, DAILY, First dose on Prema 05/25/13 at 0900, Total dose = 90mg. Give with Paroxetine 10mg. sodium chloride (PF) 0.9% PF flush 3 mL (CANCELED) 012 7 (Given - Provider: Hillary Gomez RN)1115 (Not Given - Provider: Sophia Farnsworth RN - Reason: IV Infusing)1700 (Canceled Entry - Provider: Corie Castillo RN) 0940 (Not Given - Provider: Nisha Cuevas RN - Reason: IV Infusing)1619 (Not Given - Provider: Nisha Cuevas RN - Reason: IV Infusing)2335 (Not Given - Provider: Itzel Augustin LPN - Reason: IV Infusing) 0725 (Not Given - Provider: Itzel Augustin LPN - Reason: IV Infusing) 3 mL, Intravenous, EVERY 8 HOURS, First dose on Prema 05/25/13 at 0100, And Q1H PRN, to lock peripheral IV dormant line. Continuous Medication Order 05/25/2013 05/26/2013 05/27/2013 0.9 % sodium chloride IV solution (CANCELED) 0126 (Rat e/Dose Change - Provider: Hillary Gomez RN - Comment: Bag from ER)0630 (New Bag - Provider: Hillary Gomez RN)1252 (New Bag - Provider: Sophia Farnsworth RN)1542 (Rate/Dose Verify - Provider: Corie Castillo RN) 0020 (Rate/Dose Verify - Provider: Deidra Meng RN)0216 (New Bag - Provider: Radha Billy LPN) at 150 mL/hr, Intravenous, CONTINUOUS 1939 (New Bag - Provider: Darlene Fernandez LPN) dextrose 5 % and 0.45 % NaCl + KCl 20 mEq/L (CANCELED) 0850 (New Bag - Provider: Nisha Cuevas RN)1554 (New Bag - Provider: Nisha Cuevas RN)1915 (Rate/Dose Verify - Provider: Barbara Benson RN) 0002 (New Bag - Provider: Hernando Andrew RN) at 125 mL/hr, Intravenous, CONTINUOUS PRN Medication Order 05/25/2013 05/26/2013 05/27/2013 oxtrysqdbs-maseawb-rmjailyx (FIORINAL) per capsule 1 c apsule (CANCELED) 1112 (Given - Provider: Sophia Farnsworth RN)1504 (Given - Provider: Sophia Farnsworth RN)1906 (Given - Provider: Corie Castillo RN) 0018 (Given - Provider: Amanda Meng RN)0428 (Given - Provider: Amanda Meng RN) 1 capsule, Oral, EVERY 4 HOURS PRN, headaches, Starting Prema at 1031 hcihlytnmr-jehiatf-ylyyvxmc (FIORINAL) per capsule 1-2 capsu le (CANCELED) 0856 (Given - Provider: Nisha Cuevas RN)1425 (Given - Provider: Nisha Cuevas RN)1929 (Given - Provider: Barbara Benson, MARCELA) 0445 (Given - Provider: Hernando Andrew RN)1100 (Given - Provider: Libby Gaines LPN) 1-2 capsule, Oral, EVERY 4 HOURS PRN, headaches, Starting 05/26/13 at 0842 diphenhydrAMINE (BENADRYL) injection 25 mg (CANCELED) 0153 (Given - Provider: Hillary Gomez RN)2048 (Given - Provider: Corie Castillo RN) 25 mg, Intravenous, EVERY 6 HOURS PRN, itching, Starting Prema 05/25 at 0113 HYDROmorphone (PF) (DILAUDID) injection 0.3-0.5 mg (CA NCELED) 0128 (Given - Provider: Hillary Gomez RN)0347 (Given - Provider: Hillary Gomez RN)0629 (Given - Provider: Hillary Gomez RN)1015 (Given - Provider: Sophia Farnsworth RN)1502 (Given - Provider: Sophia Farnsworth RN) 0018 (Given - Provider: Amanda Meng RN)0428 (Given - Provider: Amanda Meng RN)0853 (Given - Provider: Nisha Cuevas RN)1733 (Given - Provider: Nisha Cuevas, MARCELA)2200 (Given - Provider: Chinmay Winslow RN) 0.3-0.5 mg, Intravenous, EVERY 2 HOURS P RN, Starting Prema 05/25/13 at 0054, Until 05/27/13 at 1458, severe pain, Hold while on PROJECT ESTIMATOR. 1752 (Given - Provider: Corie Castillo, MARCELA)2040 (Given - Provider: Corie Castillo, MARCELA) oxyCODONE (ROXICODONE) immediate release tablet 5-10 mg 1210 (Given - Provider: Libby Gaines LPN - Comment: abdominal pain 6/10 on pain scale of 0-10) 0003 (Given - Provider: Hernando Andrew RN)0444 (Given - Provider: Hernando Andrew RN)0850 (Given - Provider: Libby Gaines LPN - Comment: back pain rated a 7/10 on pain scale of 0-10)1218 (Given - Provider: Libby Gaines LPN) 5-10 mg, Oral, EVERY 3 HOURS PRN, modera te to severe pain, Starting Prema 05/25/13 at 0054 prochlorperazine (COMPAZINE) injection 5-10 mg (CANCEL ED) 0633 (Given - Provider: Hillary Gomez RN)2040 (Given - Provider: Corie Castillo, MARCELA) 1725 (Given - Provider: Nisha Cuevas RN) 5-10 mg, Intravenous, EVERY 6 HOURS PRN, nausea, vomiting, Starting Prema 05/25/13 at 0054, This is Step 2 of the nausea and vomiting protocol. If nausea not resolved in 15 minutes, give Metoclopramide if ordered (step 3 of nausea and vomiting protocol) promethazine (PHENERGAN) tablet 25 mg (CANCELED) 0347 (Given - Provider: Hillary Gomez RN)1113 (Given - Provider: Sophia Farnsworth RN)1752 (Given - Provider: Corie Castillo RN) 1211 (Given - Provider: Libby Gaines LPN) 25 mg, Oral, EVERY 6 HOURS PRN, nausea, Starting Prema 05/25/13 at 0 340 documented in this encounter Care Teams Reservations Sales Agent Relationship Specialty Start Date End Date Yusef Lino MD PCP - General Family Practice 03/24/13 08/28/17 [facility] [id number] [place] [address] documented as of this encounter
--- OUTSIDE RECORDS SUMMARY | 2022-08-10 10:56 | XMS_ITS | Encounter Summary ---
:1965 Author Organization [facility] Address [address] [place] [address] Care Team Providers Name Role Phone Yusef Lino MD Primary Care Provider Reason for Visit Auth/Cert - Closed Specialty Diagnoses / Procedures Referred By Contact Refer red To Contact Gastroenterology Diagnoses PANCREATITIS Sh Endoscopy Procedures COMBINED ENDOSCOPIC ULTRASOUND, ESOPHAGOSCOPY, GASTROSCOPY, DUODENOSCOPY (EGD), FINE NEEDLE ASPIRATE/BIOPSY [address] [phone] Phone: Referral ID Status Reason Start Date Expiration Date Visits Requ ested Visits Authorized [id number] Closed 1 1 Encounter Details Date Type Department Care Team Description 05/04/2013 Hospital Encounter [facility] Brock Jackson Endoscopy MD [place] [address] [facility] [address] [phone] [address] [facility] [phone] [address] [id number] (Wo rk) Social History Tobacco Use Types [...] Sign Reading Time Taken Comments Blood Pressure 113/69 05/04/2013 10:35 AM CDT Pulse - - Temperature 36.8 ??C (98.3 ??F) 05/04/2013 7:59 AM CDT Respiratory Rate 23 05/04/2013 10:35 AM CDT Oxygen Saturation 91% 05/04/2013 10:35 AM CDT Inhaled Oxygen Concentration - - Weight 102.1 kg (225 lb) 05/04/2013 7:59 AM CDT Height 170.2 cm (5' 7) 05/04/2013 7:59 AM CDT Body Mass Index 35.24 05/04/2013 7:59 AM CDT documented in this encounter Medications at Time of Discharge Medication Sig Dispensed Refills Start Date End Date VITAMIN D, Take 2,000 Units by 0 CHOLECALCIFEROL, PO mouth daily. acetaminophen 650 MG Take 500-1,000 mg by 100 tablet 0 03/3007/23/2013 TABSIndications: Pain mouth every 6 hours as needed. wilfnvozxh-deldzwy-wtxuu Take 1 tablet by 0 07/23/2013 ine (FIORINAL EQUIV) mouth every 4 hours 50-325-40 MG TABS as needed. estrogens-methylTESTOSTE Take 1 tablet by [...] every 4 hours tabletIndications: as needed. Pancreatitis oxyCODONE-acetaminophen Take 1-2 tablets by 15 tablet 0 05/24/2013 (PERCOCET) 5-325 MG per mouth every 4 hours tablet as needed for pain. PARoxetine HCl (PAXIL Take 90 mg by mouth 0 2018 PO) daily. Patient takes 3 tabs of 30mg=90mg prochlorperazine Take 1 tablet by 20 tablet 1 04/18/2013 (COMPAZINE) 10 MG tablet mouth every 6 hours as needed. prochlorperazine Take 1-2 tablets by 40 tablet 1 03/30/2013 05/24/2013 (COMPAZINE) 5 MG mouth every 6 hours tabletIndications: as needed for Nausea nausea. SUMAtriptan Succinate Inject 6 mg 0 Refill (IMITREX STATDOSE Subcutaneous once. REFILL) 6 MG/0.5ML SOLN May repeat in 1 hr as needed, do not exceed 2 doses per 24hrs documented as of this encounter H&P Notes Greta Jackson MD - 05/08/2013 4:26 PM CDT documented in this encounter Nursing Notes Roseline Manriquez RN - 05/04/2013 10:46 AM CDT Pt stated nausea is better. Stated no change in headache. MD aware And no further orders. Aubrie Meléndez RN - 05/04/2013 9:36 AM CDT She continues to have a headache she rates 8 on a 1 to 10 scale. Aubrie Meléndez RN - 05/04/2013 8:56 AM CDT Medications and monitoring by anesthesia. documented in this encounter Plan of Treatment Not on filedocumented as of this encounter Procedures Procedure Name Priority Date/Time Associated Diagnosis Comme nts SURGICAL PATHOLOGY Routine 05/04/2013 9:23 AM Res ults for this EXAM CDT procedure are i n the results section. ESOPHAGOGASTRODUODE 05/04/2013 8:46 AM PANCREATITIS NOSCOPY, WITH CDT BIOPSY ESOPHAGOGASTRODUODE 05/04/2013 8:46 AM PANCREATITIS NOSCOPY, WITH CDT ENDOSCOPIC US UPPER EUS Routine 05/04/2013 8:39 AM Results f or this CDT procedure are i n the results section. EKG 12-LEAD, STAT 05/04/2013 8:03 AM Results f or this TRACING ONLY CDT procedure are i n the results section. 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 COMMENT: This case has been seen in intradepartmental consultation. Electronically signed out by: Corky Segal M.D. CLINICAL HISTORY: Pancreatitis. GROSS: The specimen is labeled ampulla biopsy. ??The specimen con sists of 2 pink tissue fragments ranging from 0.1 to 0.2 cm. ??The spec imens are entirely submitted in one cassette. ??SI TRS/tw MICROSCOPIC: The sections show columnar mucosa with a villous architectur e and with scattered goblet cells and areas of gastric foveolar metapla kathy. ??Mild chronic nonspecific inflammation is seen.. ??A few Spike's glands are present in the lamina propria. ??No dysplastic or malignant changes are seen. DGB/tw 05/05/2013 TESTING LAB LOCATION: [address] ??[phone] COLLECTION SITE: Client: [facility] Location: EMI (S) Specimen Anatomical Collection Method Collection Time Receive d Time (Source) Location / / Volume Laterality 05/04/2013 9:23 AM 3 2:18 CDT PM CDT Greta HINES - HARIS FATIMA Performing Organization Address City/State/ZIP Code Phon e Number COPATH UPPER EUS (05/04/2013 8:39 AM CDT) [facility] gist Method Time Signature Upper EUS [facility] RA DIOLOGY [facility] Endoscopy Department RESULTS Patient Name: Richar Coker er ?Procedure Date: 05/04/2013 8:39:20 AM ? Date of : 1965 ?Admit Type: Outpatient ? Age: 48 ? Room: ? Note Status: Finalized ?Attending MD: Greta Jackson MD ? Pause for the Cause: Time Out done by . ?? Procedure: ?Upper EUS Indications: ?Acute recurrent pancreatiti s Providers: ?Greta Jackson MD, C maureen Meléndez RN Referring MD: ? Yusef Lino MD, Rudy grant, DO Complications: ?No immediate complications Procedure: ?Pre-Anesthesia Assessment: ?- Prior to the procedure, a History and Physical ?was performed, and patient medications and ?allergies were reviewed. The patient is competent. ?The risks and benefits of the procedure and the ?sedation options and risks were discussed with the ?patient. All questions were answered and informed ?consent was obtained. Patient identification and ?proposed procedure were verified by the physician ?in the procedure room. Mental Status Examination: ?alert and oriented. Airway Examination: normal ?oropharyngeal airway and neck mobility. Respiratory ?Examination: clear to auscultation. CV Examination: ?normal. Prophylactic Antibiotics: The patient does ?not require prophylactic antibiotics. Prior ?Anticoagulants: The patient has taken no previous ?anticoagulant or antiplatelet agents. ASA Grade ?Assessment: II - A patient with mild systemic ?disease. After reviewing the risks and benefits, ?the patient was deemed in satisfactory condition to ?undergo the procedure. The anesthesia plan was to ?use monitored anesthesia care (MAC). Immediately ?prior to administration of medications, the patient ?was re-assessed for adequacy to receive sedatives. ?The heart rate, respiratory rate, oxygen ?saturations, blood pressure, adequacy of pulmonary ?ventilation, and response to care were monitored ?throughout the procedure. The physical status of ?the patient was re-assessed after the procedure. ?- Immediately prior to administration of ?medications, the patient was re-assessed for ?adequacy to receive s edatives. ?- The heart rate, respiratory rate, oxygen ?saturations, blood pressure, adequacy of pulmonary ?ventilation, and response to care were monitored ?throughout the proced ure. ?- The physical status of the patient was ?re-assessed after the procedure. ?After obtaining informed consent, the endoscope was ?passed under direct vision. Throughout the ?procedure, the patient's blood pressure, pulse, and ?oxygen saturations were monitored continuously. The ?Endoscope was introduced through the mouth, and ?advanced to the second part of duodenum. The upper ?EUS was accomplished with ease. The patient ?tolerated the procedu re well. ? Findings: ? No gross lesions were noted in the entire examined stomach. No gross ? lesions were noted in the examine d duodenum. Biopsies were taken with a ? cold forceps for histology of the ampulla because this looke prominent ? but benign. There was no sign of significant endosonographic abnormality ? in the common bile duct. No stones, no bi liary sludge, ducts of normal ? caliber and ducts with regular contour were doris ntified. CBD was 5 mm. ? Gallbladder absent. There was no sign of significan t endosonographic ? abnormality in the pancreatic head, in the pancreatic body, in the ? pancreatic tail and i n the ampulla. The pancreas was well visualized, no ? pathologic lymphadenopathy, no ma sses, no cysts, no calcifications, the ? pancreatic duct was w ell visualized from ampulla to tail, the pancreatic ? duct was thin in caliber. No chronic pancreatitis. ? The PD arising from t he major papilla was very thin measuring 1.1 mm and ? did not appear to communicate with the PD in th e body. The PD arising ? from the minor papilla appeared to commun icate with the PD in the body ? suggesting pancreas divisum. The PD arisi ng from the minor papilla was ? about 2 mm. The PD in the body was 2 mm. ? No celiac nodes. No worrisome mediastinal adenopathy ? Impression: ? - Pancreas divisum. May be cause of recurrent acute ?pancreatitis Recommendation: ? - Discharge patient to home ( ambulatory). ?- Await path results. ?- Will have pt follow up with Dr. Omari Perez in ?clinic to discuss pancreas divisum and possible ?minor papillotomy ? C Marycruz GUZMAN Greta Jackson MD Signed Date: 05/04/2013 9:49:22 AM Number of Addenda: 0 I was physically present for the entire viewing portion of t he exam. Note Initiated On: 05/04/2013 8:39:20 AM Scope Withdrawal Time: 0 hours 0 minutes 0 seconds Scope Withdrawal Time: 0 hours 0 minutes 0 seconds Total Procedure Duration: 0 hours 0 minutes 0 seconds Total Procedure Duration: 0 hours 0 minutes 0 seconds Specimen (Source) Anatomical Collection Method Collection Time Re ceived Time Location / / Volume Laterality 05/04/2013 8:39 AM CDT Yusef Lino MD PROCEDURES Performing Organization Address City/[facility]/ZIP Code Phon e Number RADIOLOGY RESULTS EKG 12-lead, tracing only (05/04/2013 8:03 AM CDT) [facility] gist Method Time Signature Interpretation ECG Click View RADIOLOGY Image link RESULTS to view waveform and result Specimen (Source) Anatomical Collection Method Collection Time Re ceived Time Location / / Volume Laterality 05/04/2013 8:03 AM CDT Greta Jackson MD ECG ORDERABLES Performing Organization Address [facility]/ZIP Code Phon e Number RADIOLOGY RESULTS ECG - HIM ECG Scan (05/04/2013) Narrative This result has an attachment that is no t available. Greta Jackson MD ECG ORDERABLES documented in this encounter Visit Diagnoses Not on filedocumented in this encounter Administered Medications Inactive Administered Medications - up to 3 most recent administrations Medication Order MAR Action Action Date Dose Rate Site HYDROmorphone (PF) (DILAUDID) Given 05/04/2013 10:09 AM 0.5 mg Right Arm injection 0.5 mg CDT 0.5 mg, Intravenous, ONCE, On Prema 05/04/13 at 1015, For 1 dose, Post-procedure documented in this encounter Active and Recently Administered Medications Times are shown in CDT. Scheduled Medication Order 05/02/2013 05/03/2013 05/04/2013 HYDROmorphone (PF) (DILAUDID) injection 0.5 mg (COMPLETED) 1009 (Given - Provider: Aubrie Meléndez, RN) 0.5 mg, Intravenous, ONCE, On Prema 05/04/13 at 1015, For 1 dose, P ost-procedure PRN Medication Order 05/02/2013 05/03/2013 05/04/2013 lactated ringers SOLN (CANCELED) 0750 (Given - Provider: Aubrie Meléndez, RN) PRN, Starting Prema 05/04/13 at 0750, Intra-procedure promethazine (PHENERGAN) injection (CANCELED) 1019 (Given - Provider: Mikaela Whelan RN) PRN, nausea, vomiting, Starting Prema 05/04 at 1019, WARNING FOR IV ADMINISTRATION: Intra-arterial inj. causes tissue necrosis. STOP administration if pain or discomfort occurs. IMPORTANT: FOR IV ad ministration: Nurse to dilute 25 mg with 10 mL of normal saline in a syringe. Resulting concentration = 2.5 mg/ mL. Administer over 3-5 minutes (Max of 25 mg/minute).?? , Intra-procedure documented in this encounter Care Teams Comptroller Relationship Specialty Start Date End Date Yusef Lion MD PCP - General Family Practice 03/24/13 08/28/17 [facility] [address] [place] [address] documented as of this encounter
--- OUTSIDE RECORDS SUMMARY | 2022-08-10 10:56 | XMS_ITS | Encounter Summary ---
:1965 Author Organization [facility] Address [address] [facility] [place] [address] Care Team Providers Name Role Phone Yusef Lino MD Primary Care Provider Reason for Visit Auth/Cert - Closed Specialty Diagnoses / Procedures Referred By Contact Refer red To Contact Gastroenterology Diagnoses PANCREATITIS Sh Endoscopy Procedures COMBINED ENDOSCOPIC ULTRASOUND, ESOPHAGOSCOPY, GASTROSCOPY, DUODENOSCOPY (EGD), FINE NEEDLE ASPIRATE/BIOPSY [address] [phone] Phone: Referral ID Status Reason Start Date Expiration Date Visits Requ ested Visits Authorized [id number] Closed 1 1 Encounter Details Date Type Department Care Team Description 05/04/2013 Surgery [facility] Greta Jackson ENDO SCOPIC ULTRASOUND [facility] Endoscopy MD [place] WITH FINE NEEDLE [address] [facility] ASPIRATE [place] [phone] [facility] [phone] [place] [id number] (Wo rk) Surgery Details Date/Time Status Location OR Service Patient Class Case Case Trauma Class Type Case? 05/04/13 9:00 Posted GI GI SP Gastroenterology Outpatient AM 01 Panel 1 Procedure LRB Anes Op Region Wound Class Commen ts ENDOSCOPIC N/A MAC Esophagus II-Clean ENDOSCOPIC ULTRASOUND WITH Contaminated ULTRASO UND WITH FINE NEEDLE FINE NEEDLE ASPIRATE ASPIRATE ESOPHAGOGASTRODUOD N/A Conscious Esophagus II-Clean ENOSCOPY, WITH Sedation Contaminated BIOPSY Surgeon Surgeon Role Service Panel Greta Jackson MD Primary Gastroenterology 1 documented in this encounter Social History Tobacco [...] Sign Reading Time Taken Comments Blood Pressure 114/68 05/04/2013 10:25 AM CDT Pulse - - Temperature 36.8 ??C (98.3 ??F) 05/04/2013 7:59 AM CDT Respiratory Rate 8 05/04/2013 10:25 AM CDT Oxygen Saturation 92% 05/04/2013 10:25 AM CDT Inhaled Oxygen Concentration - - [...] Pain mouth every 6 hours as needed. mdiggeiptb-oylljgk-lpidu Take 1 tablet by 0 07/23/2013 ine [...] is better. Stated no change in headache. aware And no further orders. Aubrie Meléndez [...] Component Value Ref Test Analysis Performed At [facility] gist Range Method Time Signature Copath Patient Name: RICHAR CULVER Report MR#: [id number] Specimen #: [id number] Collected: 05/04/2013 Received: 05/04/2013 Reported: 05/05/2013 16:14 [...] are seen. DGB/tw 05/05/2013 TESTING LAB LOCATION: [address] ??[phone] COLLECTION SITE: Client: [facility] Location: SH[place]O (S) Specimen Anatomical Collection Method Collection Time Receive d Time (Source) Location / / Volume Laterality 05/04/2013 9:23 AM 3 2:18 CDT PM CDT Greta HINES - HARIS FATIMA Performing Organization Address City/State/ZIP Code Phon e Number COPATH UPPER EUS (05/04/2013 8:39 AM CDT) [facility] gist Method Time Signature Upper EUS [facility] RA DIOLOGY [facility] Endoscopy Department RESULTS Patient Name: Richar Coker er ?Procedure Date: 05/04/2013 8:39:20 AM ? Date of : 1965 ?Admit Type: Outpatient ? Age: 48 ? Room: ? Note Status: Finalized ?Attending MD: Greta Jackson MD ? Pause for the Cause: Time Out done by . ?? Procedure: ?Upper EUS Indications: ?Acute recurrent pancreatiti s Providers: ?Greta Jackson MD, Jolene Meléndez RN Referring : ? Yusef Lino MD, Rudy grant, DO [...] Yusef Lino MD PROCEDURES Performing Organization Address City/[facility]/ZIP Code Phon e Number RADIOLOGY RESULTS EKG 12-lead, tracing only (05/04/2013 8:03 AM CDT) [facility] gist Method Time Signature Interpretation ECG Click View RADIOLOGY Image link RESULTS to view waveform and result Specimen (Source) Anatomical Collection Method Collection Time Re ceived Time Location / / Volume Laterality 05/04/2013 8:03 AM CDT Greta Jackson MD ECG ORDERABLES Performing Organization Address City/State/ZIP Code Phon e Number RADIOLOGY RESULTS ECG [...] 05/04/13 at 1015, For 1 dose, Post-procedure lactated ringers SOLN Given 05/04/2013 7:50 AM CDT 1,000 mLs PRN, Starting on Prema 05/04/13 at 0750, Intra-procedure promethazine (PHENERGAN) injection Given 05/04/2013 10:19 AM CDT 12.5 mg PRN, nausea, vomiting, Starting on Prema 05/04/13 at 1019, WARNING FOR IV ADMINISTRATION: Intra-arterial inj. causes tissue necrosis. STOP administration if pain or discomfort occurs. IMPORTANT: FOR IV administration: Nurse to dilute 25 mg with 10 mL of normal saline in a syringe. Resulting concentration = 2.5 mg/ mL. Administer over 3-5 minutes (Max of 25 mg/minute).?? , Intra-procedure documented in this encounter Active and Recently Administered Medications Times are shown in CDT. Scheduled Medication Order 05/02/2013 05/03/2013 05/04/2013 HYDROmorphone (PF) (DILAUDID) injection 0.5 mg (COMPLETED) 1009 (Given - Provider: Aubrie Meléndez RN) 0.5 mg, Intravenous, ONCE, On Prema 05/04/13 at 1015, For 1 dose, P ost-procedure PRN Medication Order 05/02/2013 05/03/2013 05/04/2013 lactated ringers SOLN (CANCELED) 0750 (Given - Provider: Aubrie Meléndez RN) PRN, Starting Prema 05/04/13 at 0750, [...] Intra-procedure documented in this encounter Care Teams Export Documents Clerk Relationship Specialty Start Date End Date Yusef Lino MD PCP - General Family Practice 03/24/13 08/28/17 [facility] [id number] [place] [phone] documented as of this encounter
--- OUTSIDE RECORDS SUMMARY | 2022-08-10 10:56 | XMS_ITS | Encounter Summary ---
:1965 Author Organization [facility] Address [address] [place] [address]. [place] [address] Care Team Providers Name Role Phone Yusef Lino MD Primary Care Provider Reason for Visit (Routine) - Closed Specialty Diagnoses / Procedures Referred By Contact Refer red To Contact Radiology Diagnoses MRCP-CHOLEPANCREATOGRAPHY Procedure Notes: Acute pancreatitis Rh Mri Procedures RADIOLOGY [address] [place], [place] [address] Phone: Fax: Referral ID Status Reason Start Date Expiration Date Visits Requ ested Visits Authorized [id number] Closed 06/14/2013 06/14/2014 1 1 Encounter Details Date Type Department Care Team Description 06/21/2013 Hospital Encounter [facility] Omari Perez pancreatitis [facility] MD [place] [address] [place], [place] GASTROENTEROLOGY [address] [place] [address] [address] Social History Tobacco Use Types Packs/Day Years [...] Sig Dispensed Refills Start Date End Date orrbinm-spzcvqpposayh-r Take 2 tablets by 0 affeine (EXCEDRIN mouth every 8 hours MIGRAINE) 250-250-65 MG as needed per tablet VITAMIN D, Take 2,000 Units by 0 CHOLECALCIFEROL, PO mouth daily. acetaminophen 650 MG Take 500-1,000 mg by 100 tablet 0 03/3007/23/2013 TABSIndications: Pain mouth every 6 hours as needed. wetkmlzrdj-poqjsns-qnhg Take 1 tablet by 0 07/23/2013 eine [...] documented as of this encounter Progress Notes Abstract, Provider - 06/22/2013 9:17 AM CDT documented in this encounter Miscellaneous Notes Initial Assessments - Abstract Provider - 06/22/2013 12:01 PM CDT documented in this encounter Plan of Treatment Not on filedocumented as of this encounter Procedures Procedure Name Priority Date/Time Associated Diagnosis Comme nts MR ABDOMEN MRCP W/O Routine 06/21/2013 9:41 AM Acute pancreati tis Results for this & W CONTRAST CDT procedure are i n the results section. documented in this encounter Results MR Abdomen MRCP w/o & w Contrast (06/21/2013 9:41 AM CDT) Anatomical Region Laterality Modality Abdomen/Pelvis, SUBRAD MR BODY, UMP MR BODY Magnetic Resonance Specimen (Source) Anatomical Collection Method Collection Time Re ceived Time Location / / Volume Laterality 06/21/2013 9:41 AM CDT Impressions 06/22/2013 9:23 AM CDT IMPRESSION: 1. No MR evidence of acute pancreatitis. 2. Pancreas divisum. 3. No biliary dilatation or choledocholi thiasis. 4. Prior cholecystectomy. MORIAH BOJORQUEZ MD Narrative 06/22/2013 9:23 AM CDT MAGNETIC RESONANCE CHOLANGIOPANCREATOGRA PHY WITHOUT AND WITH CONTRAST 06/21/2013 HISTORY: Acute pancreatitis. COMPARISON: 03/29/2013 - CT abdomen and pe lvis. TECHNIQUE: The following imaging sequences were acq uired: Coronal T2 SSFSE, axial T1 SPGR in and out of phase, axial T2 FRFSE with fat saturation, pre-and dynamic post 15 mL G adavist axial T1 3-D SPGR with fat saturation, axial and coronal t hin slab MRCP, and coronal 3-D MRCP. FINDINGS: Pancreaticobiliary system: Prior cholecy stectomy. No intra-or extrahepatic dilatation. No visualized f illing defects in the common bile duct. Pancreas divisum. The pancrea tic duct is normal in caliber. Remainder of the upper abdomen: The live r, spleen, pancreas, adrenal glands and left kidney are otherwise unr emarkable. No peripancreatic edema or fluid collections. 1.5 cm cyst in the upper pole of the right kidney. 1 cm cyst in the inferior pole of the right kidney. The visualized portions of the small and lar ge bowel are normal in caliber. No enlarged lymph nodes or free fluid in the upper abdomen. Procedure Note Moriah Bojorquez MD - 06/22/2013Fo rmatting of this note might be different from the original. MAGNETIC RESONANCE CHOLANGIOPANCREATOGRA PHY WITHOUT AND WITH CONTRAST 06/21/2013 HISTORY: Acute pancreatitis. COMPARISON: 03/29/2013 - CT abdomen and pe lvis. TECHNIQUE: The following imaging sequences were acq uired: Coronal T2 SSFSE, axial T1 SPGR in and out of phase, axial T2 FRFSE with fat saturation, pre-and dynamic post 15 mL G adavist axial T1 3-D SPGR with fat saturation, axial and coronal t hin slab MRCP, and coronal 3-D MRCP. FINDINGS: Pancreaticobiliary system: Prior cholecy stectomy. No intra-or extrahepatic dilatation. No visualized f illing defects in the common bile duct. Pancreas divisum. The pancrea tic duct is normal in caliber. Remainder of the upper abdomen: The live r, spleen, pancreas, adrenal glands and left kidney are otherwise unr emarkable. No peripancreatic edema or fluid collections. 1.5 cm cyst in the upper pole of the right kidney. 1 cm cyst in the inferior pole of the right kidney. The visualized portions of the small and lar ge bowel are normal in caliber. No enlarged lymph nodes or free fluid in the upper abdomen. IMPRESSION IMPRESSION: 1. No MR evidence of acute pancreatitis. 2. Pancreas divisum. 3. No biliary dilatation or choledocholi thiasis. 4. Prior cholecystectomy. MORIAH BOJORQUEZ MD Omari Perez MD IM MRI ORDERABLES documented in this encounter Visit Diagnoses Diagnosis Acute pancreatitis documented in this encounter Administered Medications Inactive Administered Medications - up to 3 most recent administrations Medication Order MAR Action Action Date Dose Rate Site gadobutrol (GADAVIST) injection 15 Given 06/21/2013 9:18 AM CDT 15 mLs mL 15 mL, Intravenous, ONCE, On Wed06/21/13 at 0915, For 1 dose sodium chloride (PF) 0.9% PF flush 60 mL Given 06/21/2013 9:18 AM CDT 60 mLs 60 mL, Intravenous, ONCE, On Wed06/21/13 at 0915, For 1 dose documented in this encounter Care Teams Staffing Operations Manager Relationship Specialty Start Date End Date Yusef Lino MD PCP - General Family Practice 03/24/13 08/28/17 [facility] [address] [place] [phone] documented as of this encounter
--- OUTSIDE RECORDS SUMMARY | 2022-08-10 10:56 | XMS_ITS | Encounter Summary ---
:1965 Author Organization [facility] Address [address] [place] [address]. [place] [address] Care Team Providers Name Role Phone Yusef Lino MD Primary Care Provider Encounter Details Date Type Department Care Team Description 06/12/2013 Orders Only [facility] Trudy Vázquez Acute pa ncreatitis [facility] (Primary Dx) [address] [place] [id number] Social History Tobacco Use Types Packs/Day Years [...] as of this encounter Visit Diagnoses Diagnosis Acute pancreatitis - Primary documented in this encounter Care Teams Telegraphic Instrument Supervisor Relationship Specialty Start Date End Date Yusef Lino MD PCP - General Family Practice 03/24/13 08/28/17 [facility] [id number] [place] [phone] documented as of this encounter
--- OUTSIDE RECORDS SUMMARY | 2022-08-10 10:56 | XMS_ITS | Encounter Summary ---
:1965 Author Organization [facility] Address [address] [place] [address]. [place] [address] Care Team Providers Name Role Phone Yusef Lino MD Primary Care Provider Reason for Visit Reason Comments Abdominal Pain Encounter Details Date Type Department Care Team Description 04/18/2013 Emergency [facility] Ilda Blake Ab dominal pain [facility] Emergency Dep t (Primary Dx) [address] [facility], [place] [phone] [id number] [facility] [phone] [place] [id number] (Wo rk) Social History Tobacco Use Types [...] Sign Reading Time Taken Comments Blood Pressure 105/77 04/18/2013 8:40 PM CDT Pulse - - Temperature 37.1 ??C (98.7 ??F) 04/18/2013 6:01 PM CDT Respiratory Rate 16 04/18/2013 6:40 PM CDT Oxygen Saturation 92% 04/18/2013 8:40 PM CDT Inhaled Oxygen Concentration - - Weight - - Height - - Body Mass Index - - documented in this encounter Discharge Instructions Discharge InstructionsIlda Blake MD - 04/18/2013 8:41 PM CDT Discharge Instructions Abdominal Pain Abdominal pain can be caused by many things. Your evaluation today does not show the exact cause foryour pain. Your doctor today has decided that it is unlikely your pain is due to a life threatening problem, or a problem requiring surgery or hospital admission. Sometimes those problems cannot be found right away, so it is very important that you follow up as directed. Sometimes only the changes which occur over time allow the cause of your pain to be found. Return to the Emergency Department for a recheck in 8-12 hours if your pain continues. If your pain gets worse, changes in location, or feels different, return to the Emergency Department right away. ADULTS: Return to the Emergency Department right away if: You get an oral temperature above 102oF or as directed by your doctor. You have blood in your stools (bright red or black, tarry stools). You keep throwing up or can???t drink liquids. You see blood when you throw up. You can???t have a bowel movement or you can???t pass gas. Your stomach gets bloated or bigger. Your skin or the whites of your eyes look yellow. You faint. You have bloody, frequent or painful urination. You have new symptoms or anything that worries you. CHILDREN: Return to the Emergency Department right away if your child has any of the above-listed symptoms or the following: Pushes your hand away or screams/cries when his/her belly is touched. You notice your child is very fussy or weak. Your child is very tired and is too tired to eat or drink. Your child is dehydrated. Signs of dehydration can be: o Your infant has had no wet diapers in 4-5 hours. o Your older child has not passed urine in 6-8 hours. o Your or child starts to have dry mouth and lips, or no saliva or tears. WOMEN: Return to the Emergency Department right away if you have any of the above-listed symptoms or the following: You have bleeding, leaking fluid or passing tissue from the vagina You have worse pain or cramping, or pain in your shoulder or back. You have vomiting that will not stop. You have painful or bloody urination. You have a temperature of 100oF or more. Your baby is not moving as much as usual. You faint. You get a bad headache with or without eye problems and abdominal pain. You have a convulsion or seizure. You have unusual discharge from your vagina and abdominal pain. Abdominal pain is pretty common during . Your pain may or may not be related to your . You should follow-up closely with your OB doctor so they can evaluate you and your baby. Until you follow-up with your regular doctor, do the following: Avoid sex and do not put anything in your vagina. Drink clear fluids. Only take medications approved by your doctor. MORE INFORMATION: Appendicitis: A possible cause of abdominal pain in any person who still has their appendix is acuteappendicitis. Appendicitis is often hard to diagnose. Testing does not always rule out early appendicitis or other causes of abdominal pain. Close follow-up with your doctor and re-evaluations may be needed to figure out the reason for your abdominal pain. Follow-up: It is very important that you make an appointment with your clinic and go to the appointment. If you do not follow-up with your primary doctor, it may result in missing an important development which could result in permanent injury or disability and/or lasting pain. If there is any problemkeeping your appointment, call your doctor or return to the Emergency Department. Medications: Take your medications as directed by your doctor today. Before using [id number] medications, ask your doctor and make sure to take the medications as directed. If you have any questions about medications, ask your doctor. Diet: Resume your normal diet as much as possible, but do not eat fried, fatty or spicy foods while you have pain. Do not drink alcohol or have caffeine. Do not smoke tobacco. Remember that you can always come back to the Emergency Department if you are not able to see your normal doctor in the amount of time listed above, if you get any new symptoms, or if there is anythingthat worries you. documented in this encounter Medications at Time [...] documented as of this encounter ED Notes Ilda Blake MD - 04/18/2013 6:10 PM CDT History Chief Complaint: Abdominal pain UMM Culver is a 48 year old female with a history of pancreatitis (end of 02/2013) who presents to the Emergency Department by her with complaints of abdominal pain. The patient reports that she has been experiencing sharp central abdominal pain with associated radiating back pain and mild shortness of breath (secondary to pain) for the past week. She notes that her pain has only increased in severity since onset, and also mentions new onset of vomiting for the last 24 hours. Given her ongoing and new development of symptoms, she presents here to the Emergency Department this evening for evaluation and further management. Here, the patient rates her abdominal pain/discomfort as 5/10 in severity. Roxicodone has not yet provided her with any significant relief. She states that she has not experienced any associated fevers, chills, chest pain, diarrhea, bloody or melenic appearing stools, urinary symptoms, or a decrease in appetite. The patient denies any recent illnesses, trauma, cough, sore throat, headaches, or rashes, and states that she has otherwise been healthy. She reports it feels similar to when she had pancreatitis. She does not voice any additional concerns at this time. Allergies: No known allergies. Medications: Roxicodone. Multivitamin. Compazine. Paxil. Synthroid. Estratest HS. Vitamin D. Acetaminophen. Imitrex. Past Medical History: Pancreatitis. Migraines. Past Surgical History: Hysterectomy. Cholecystectomy. Orthopedic surgery; cervical spine fusion. Family History: Positive for a family history of CAD, lung fibrosis, and diabetes mellitus. Social History: The patient is . She is here in the Emergency Department today with her . She states that she has never used tobacco in the past. The patient reports alcohol use (3-4 drinks per month). She denies any illicit drug use. Review of Systems Constitutional: Negative for fever, chills and appetite change. HENT: Negative for sore throat. Respiratory: Positive for shortness of breath (mild, secondary to pain). Negative for cough. Cardiovascular: Negative for chest pain. Gastrointestinal: Positive for vomiting and abdominal pain (central). Negative for diarrhea and blood in stool. Genitourinary: Negative for dysuria, frequency, hematuria and difficulty urinating. Musculoskeletal: Positive for back pain (central). Negative for any recent trauma. Skin: Negative for rash. Neurological: Negative for headaches. All other systems reviewed and are negative. Physical Exam First Vitals: BP: 142/108 mmHg Heart Rate: 90 Temp: 98.7 ??F (37.1 ??C) Resp: 16 SpO2: 98 % Physical Exam Constitutional: She is oriented to person, place, and time. She is cooperative. HENT: Right Ear: External ear normal. Left Ear: External ear normal. Nose: Nose normal. Mouth/Throat: Uvula is midline, oropharynx is clear and moist and mucous membranes are normal. No posterior oropharyngeal edema or posterior oropharyngeal erythema. Eyes: Conjunctivae normal, EOM and lids are normal. Pupils are equal, round, and reactive to light. Neck: Trachea normal and normal range of motion. Neck supple. Cardiovascular: Normal rate, regular rhythm, normal heart sounds and intact distal pulses. Pulmonary/Chest: Effort normal and breath sounds normal. She has no wheezes. She has no rales. Abdominal: Soft. Bowel sounds are normal. There is tenderness (epigastric and LUQ). There is no rebound and no guarding. Musculoskeletal: Normal range of motion. No edema, left flank pain Lymphadenopathy: She has no cervical adenopathy. Neurological: She is alert and oriented to person, place, and time. She has normal strength. No cranial nerve deficit or sensory deficit. Skin: Skin is dry. No rash noted. Psychiatric: She has a normal mood and affect. Emergency Department Course Imaging: CT chest, abdomen, pelvis (without contrast): 1. No visualized pulmonary embolism or other acute findings in the chest. 2. No acute cause of abdominal pain identified. 3. Multiple small nonobstructing renal stones are again seen. 4. Cholecystectomy. 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 Results were discussed with the patient who stated understanding. Laboratory: CBC: WBC 6.6 (wnl) HGB 14.6 (wnl) PLT 324 (wnl). CMP: Creatinine 0.52 (wnl). GLUC 116 (high). ALT 56 (high). Lipase: 86 (wnl). Urinalysis: Yellow, clear. Trace blood present. Protein albumin 10. RBC 14 (high). Few bacteria present. Squamous epithelial 2 (high). Mucous present. Few uric acid crystals present. Interventions: Zofran, 4mg injection Dilaudid, 0.5mg injection Normal Saline, 1000mL, IV infusion x2 Phenergan, 25mg injection Emergency Department Course: 1809 The patient's medical record was reviewed. A peripheral IV was established. The patient was seen and evaluated by myself, and the plan of care including laboratory and diagnostic studies was discussed with the patient. The patient understands and is agreeable to this plan. Thepatient was placed on continuous cardiac monitoring. 2015 Recheck. The patient is resting comfortably at this time. She states that she is feeling much improved following the above interventions. She has no further questions at this time. 2034 At this time I spoke to Dr. Henry of GI with regards to the patient's presentation and appropriate plan of care. 2040 The patient continues to do well here in the Emergency Department. I have reviewed with the patient the plan of care and the results of the above studies, and all of her questions have been answered. She understands and is agreeable to this plan of care. She will be discharged to home in stable condition with a prescription for Percocet and Compazine as well as a care plan as detailed below. Impression & Plan Medical Decision Making: Mariia Culver is a 48 year old female who presented to the Emergency Department with ongoing abdominal pain for the past week and new onset of vomiting today. The patient reported that her symptoms felt similar to her previous exacerbation of pancreatitis. She was actually recently admitted for herpancreatitis roughly one month ago. Evaluation revealed a normal lipase and liver enzymes. Due to her shortness of breath, CT chest/abdomen/pelvis was performed. This returned negative without evidenceof pulmonary embolism or abnormal abdominal findings. UA revealed no abnormalities, aside from mild b lood. I felt that this was most likely related to her renal stones. The patient is to follow-up withGI for endoscopic US as previously scheduled. I did speak to the on-call GI physician, Dr. Henry, and he will see if he can get the patient in sooner. The patient's pain and nausea were controlled with the above interventions, and I felt that she was safe for discharge to home. She was provided withprescriptions for Percocet and Compazine to be taken as directed. The patient is to follow-up as previously discussed. She is to return here to the Emergency Department if she develops any new or worsening symptoms. Diagnosis: 1. Abdominal pain Disposition: The patient was discharged to home in stable condition and improved with instructions as noted above, under the care of her . With reasonable clinical confidence, I do not believe any emergency medical condition exists that requires further immediate medical attention, or that could be expected to place the patient's health in serious jeopardy. Chris. Libby Nan, am serving as a scribe on 04/18/2013 at 6:10 PM to personally document services performed by Dr. Blake based on my observations and the provider's statement to me. Libby Nan 04/18/2013 [facility] EMERGENCY DEPARTMENT Ilda Blake MD 04/19/13 1533 Florencia Balderas, MARCELA - 04/18/2013 5:59 PM CDT States sent here from [facility] with ongoing pain, dx pancreatitis documented in this encounter Miscellaneous Notes Initial Assessments - Abstract, Provider - 04/19/2013 7:47 PM CDT documented in this encounter Plan of Treatment Not on filedocumented as of this encounter Procedures Procedure Name Priority Date/Time Associated Comments Diagnosis CT CHEST ABDOMEN W STAT 04/18/2013 7:25 PM Res ults for this CONTRAST CDT procedure are i n the results section. ROUTINE UA WITH STAT 04/18/2013 7:00 PM Result s for this MICROSCOPIC CDT procedure are i n the results section. CBC WITH PLATELETS & STAT 04/18/2013 6:18 PM R esults for this DIFFERENTIAL CDT procedure are i n the results section. LIPASE STAT 04/18/2013 6:18 PM Results f or this CDT procedure are i n the results section. COMPREHENSIVE STAT 04/18/2013 6:18 PM Results for this METABOLIC PANEL CDT procedure ar e in the results section. documented in this encounter Results CT Chest Abdomen w Contrast (04/18/2013 7:25 PM CDT) Anatomical Region Laterality Modality Abdomen/Pelvis, SUBRAD CT BODY, UMP CT ABDOMEN PELVIS, Computed Tomography Chest Specimen (Source) Anatomical Collection Method Collection Time Re ceived Time Location / / Volume Laterality 04/18/2013 7:25 PM CDT Impressions 04/19/2013 11:45 AM CDT IMPRESSION: 1. No visualized pulmonary embolism or o ther acute findings in the chest. 2. No acute cause of abdominal pain iden tified. 3. Multiple small nonobstructing renal s tones are again seen. 4. Cholecystectomy. ROMEO MOODY MD Narrative 04/19/2013 11:[address] CHEST AND ABDOMEN WITH CONTRAST ? 7:25 PM HISTORY: Chest and upper abdominal pain. TECHNIQUE: Volumetric acquisition of the chest and abdomen with oral and IV contrast. 96 mL of Optiray 320. COMPARISON: Abdominal CT 03/29/2013. FINDINGS: Chest: No visualized pulmonary embolism. Exam slightly limited by motion artifact. No thoracic aortic aneu rysm or dissection. No acute infiltrates or pleural effusions. No pne umothorax. No enlarged mediastinal or hilar lymph nodes. Tiny c alcified granuloma at the right lung base. A nodular density seen previously at the right lung base which measured 0.8 cm has resolved compatible with some focal atelectasis. A few other tiny nodular de nsities seen in the lower lungs previously are also difficult to s ee on the current study and are of doubtful significance. Abdomen and pelvis: Liver and spleen are negative. Gallbladder is absent. Pancreas, adrenal glands and kid neys demonstrate no worrisome findings. Multiple small nonobstructing renal stones bilaterally. Small stable cyst right kidney at the lo wer pole. No hydronephrosis. The visualized bowel loops are within no rmal limits. No dilated bowel loops or inflammatory changes in the abd omen. No abdominal ascites. The pelvis was not scanned. Procedure Note Romeo Moody MD - 04/19/2013F ormatting of this note might be different from the original. CT CHEST AND ABDOMEN WITH CONTRAST 2012 7:25 PM HISTORY: Chest and upper abdominal pain. TECHNIQUE: Volumetric acquisition of the chest and abdomen with oral and IV contrast. 96 mL of Optiray 320. COMPARISON: Abdominal CT 03/29/2013. FINDINGS: Chest: No visualized pulmonary embolism. Exam slightly limited by motion artifact. No thoracic aortic aneu rysm or dissection. No acute infiltrates or pleural effusions. No pne umothorax. No enlarged mediastinal or hilar lymph nodes. Tiny c alcified granuloma at the right lung base. A nodular density seen previously at the right lung base which measured 0.8 cm has resolved compatible with some focal atelectasis. A few other tiny nodular de nsities seen in the lower lungs previously are also difficult to s ee on the current study and are of doubtful significance. Abdomen and pelvis: Liver and spleen are negative. Gallbladder is absent. Pancreas, adrenal glands and kid neys demonstrate no worrisome findings. Multiple small nonobstructing renal stones bilaterally. Small stable cyst right kidney at the lo wer pole. No hydronephrosis. The visualized bowel loops are within no rmal limits. No dilated bowel loops or inflammatory changes in the abd omen. No abdominal ascites. The pelvis was not scanned. IMPRESSION IMPRESSION: 1. No visualized pulmonary embolism or o ther acute findings in the chest. 2. No acute cause of abdominal pain iden tified. 3. Multiple small nonobstructing renal s tones are again seen. 4. Cholecystectomy. ROMEO MOODY MD Ilda Blake MD IMG CT ORDERABLES (ABNORMAL) UA with Microscopic (04/18/2013 7:00 PM CDT) [facility] Method Time Signature Color Urine Yellow [facility] Appearance Urine Clear [facility] Glucose Urine Negative NEG mg/dL [facility] Bilirubin Urine Negative NEG [facility] Ketones Urine Negative NEG mg/dL [facility] Specific [place] 1.017 1.003 - [place] Urine 1.035 [facility] Blood Urine Trace (A) NEG [facility] pH Urine 6.5 5.0 - 7.0 [place] pH [facility] Protein Albumin 10 (A) NEG mg/dL [facility] Urobilinogen Normal 0.0 - 2.0 [place] mg/dL mg/dL [facility] Nitrite Urine Negative NEG [facility] Leukocyte Negative NEG [place] Esterase Urine [facility] Source Midstream [facility] WBC Urine 1 0 - 2 [place] /HPF [facility] RBC Urine 14 (H) 0 - 2 [place] /[facility] Bacteria Urine Few (A) NEG /HPF [facility] Squamous 2 (H) 0 - 1 [place] Epithelial /HPF /HPF [facility] Mucous Urine Present (A) NEG /LPF [facility] Uric Acid Few (A) NEG /HPF [place] Crystals [facility] Specimen Anatomical Collection Method Collection Time Receive d Time (Source) Location / / Volume Laterality Urine specimen URINE SPECIMEN 04/18/2013 7:00 PM 04/18 7:26 (specimen) OBTAINED BY CLEAN CDT PM CDT CATCH PROCEDURE / Unknown Ilad Blake MD LAB - URINE ORDERABLES Performing Organization Address City/State/ZIP Code Phon e Number [facility] [address] [place], [place] [address] [facility] Lipase (04/18/2013 6:18 PM CDT) P athologist Signature Lipase 86 20 - 250 [facility] U/L [facility] Specimen Anatomical Collection Method Collection Time Receive d Time (Source) Location / / Volume Laterality Blood specimen 04/18/2013 6:18 PM 013 6:38 (specimen) CDT PM CDT Ilda Blake MD LAB - BLOOD ORDERABLES Performing Organization Address City/[facility]/ZIP [facility] [place] e Number [facility] [address] [place], [place] [address] [facility] (ABNORMAL) Comprehensive metabolic panel (04/18/2013 6:18 PM CDT) Analysis Performed At Patho logist Time Signature Sodium 142 133 - 144 [place] mmol/L [facility] Potassium 3.4 3.4 - 5.3 [place] mmol/L [facility] Chloride 103 94 - 109 [place] mmol/L [facility] Carbon Dioxide 26 20 - 32 [place] mmol/L [facility] Anion Gap 14 6 - 17 [place] mmol/L [facility] Glucose 116 (H) 60 - 99 [place] mg/dL [facility] Urea Nitrogen 17 7 - 30 [place] mg/dL [facility] Creatinine 0.52 0.52 - [place] 1.04 mg/dL [facility] GFR Estimate >90 >60 [place] mL/min/[address] [place] [address] LAB GFR Estimate If >90 >60 [place] Black mL/min/[address] [place] [address] LAB Calcium 9.4 8.5 - 10.4 [place] mg/dL [facility] Bilirubin Total 0.3 0.2 - 1.3 [place] mg/dL [facility] Albumin 4.4 3.9 - 5.1 [place] g/dL [facility] Protein Total 7.4 6.8 - 8.8 [place] g/dL [facility] Alkaline 103 40 - 150 [place] Phosphatase U/L [facility] ALT 56 (H) 0 - 50 U/L [facility] AST 37 0 - 45 U/L [facility] Specimen Anatomical Collection Method Collection Time Receive d Time (Source) Location / / Volume Laterality Blood specimen 04/18/2013 6:18 PM 013 6:38 (specimen) CDT PM CDT Ilda Blake MD LAB - BLOOD ORDERABLES Performing Organization Address City/State/ZIP Code Phon e Number [place] [id number] [place], [place] [address] [facility] CBC with platelets differential (04/18/2013 6:18 PM CDT) [facility] gist Method Time Signature WBC 6.6 4.0 - [facility] 11.0 [facility] 10e9/L [facility] RBC Count 4.52 3.8 - 5.2 [place] 10e12/L [facility] Hemoglobin 14.6 11.7 - [place] 15.7 g/dL [facility] Hematocrit 41.5 35.0 - [facility] 47.0 % [facility] MCV 92 78 - 100 [place] fl [facility] MCH 32.3 26.5 - [facility] 33.0 pg [facility] MCHC 35.2 31.5 - [place] 36.5 g/dL [facility] RDW 12.8 10.0 - [facility] 15.0 % [facility] Platelet Count 324 150 - 450 [place] 10e9/L [facility] Diff Method Automated [facility] LAB % Neutrophils 41.9 % [facility] % Lymphocytes 41.6 % [facility] % Monocytes 10.0 % [facility] % Eosinophils 5.3 % [facility] % Basophils 1.2 % [facility] % Immature 0.0 % [place] Granulocytes [facility] Absolute 2.8 1.6 - 8.3 [place] Neutrophil 10e9/L [facility] Absolute 2.8 0.8 - 5.3 [place] Lymphocytes 10e9/L [facility] Absolute 0.7 0.0 - 1.3 [place] Monocytes 10e9/[facility] Absolute 0.4 0.0 - 0.7 [place] Eosinophils 10e9/[facility] Absolute 0.1 0.0 - 0.2 [place] Basophils 10e9[facility] Abs Immature 0.0 0 - 0.4 [place] Granulocytes [address] [place] [address] LAB Specimen Anatomical Collection Method Collection Time Receive d Time (Source) Location / / Volume Laterality Blood specimen 04/18/2013 6:18 PM 013 6:38 (specimen) CDT PM CDT Ilda Blake MD LAB - BLOOD ORDERABLES Performing Organization Address City/State/ZIP Code Phon e Number [facility] [address] [place] [address] [facility] documented in this encounter Visit Diagnoses Diagnosis Abdominal pain - Primary Abdominal pain, unspecified site documented in this encounter Administered Medications Inactive Administered Medications - up to 3 most recent administrations Medication Order MAR Action Action Date Dose Rate Site 0.9 % sodium chloride IV New Bag 04/18/2013 8:24 PM CDT 1,000 mLs 125 mL/hr solution at 125 mL/hr, Intravenous, CONTINUOUS, Administer after the bolus., Starting on Wed04/18/13 at 1830, Until Wed04/18/13 at 2305 HYDROmorphone (PF) (DILAUDID) injection 0.5 Given 04/18/2013 8:18 PM CDT 0.5 mg mg 0.5 mg, Intravenous, EVERY 15 MIN PRN, moderate to severe pain, Starting on Wed04/18/13 at 1817, For 3 doses Given 04/18/2013 7:25 PM CDT 0.5 mg Given 04/18/2013 6:31 PM CDT 0.5 mg ioversol (OPTIRAY 320) iv solution 68% 1 00 mL Given 04/18/2013 7:24 PM CDT 96 mLs 100 mL, Intravenous, ONCE, On Wed04/18/13 at 1915, For 1 dose ondansetron (ZOFRAN) injection 4 mg Given 04/18/2013 7:30 PM CDT 4 mg 4 mg, Intravenous, EVERY 30 MIN PRN, nausea, vomiting, Administer over 2-5 Minutes, Starting on Wed04/18/13 at 1816, For 3 doses, May repeat in 30 minutes as needed, up to 3 doses. Given 04/18/2013 6:28 PM CDT 4 mg promethazine (PHENERGAN) injection 25 mg Given 04/18/2013 8:18 PM CDT 25 mg 25 mg, Intravenous, ONCE, On Wed04/18/13 at 2015, For 1 dose, WARNING FOR IV ADMINISTRATION: Intra-arterial inj. causes tissue necrosis. STOP administration if pain or discomfort occurs. IMPORTANT: FOR IV administration: Nurse to dilute 25 mg with 10 mL of normal saline in a syringe. Resulting concentration = 2.5 mg/ mL. Administer over 3-5 minutes (Max of 25 mg/minute).?? sodium chloride 0.9 % BOLUS New Bag 04/18/2013 6:28 PM CDT 1,000 m Ls 1000 mL/hr 1,000 mL Intravenous, 1,000 mL, ONCE, at 1,000 mL/hr, Administer over 1 Hours, On Wed04/18/13 at 1830, For 1 dose sodium chloride 0.9 % BOLUS 1,000 mL New Bag 04/18/2013 7:24 PM CDT 99 mLs Intravenous, 1,000 mL, ONCE, On Wed04/18/13 at 1915, For 1 dose documented in this encounter Active and Recently Administered Medications Times are shown in CDT. Scheduled Medication Order 04/16/2013 04/17/2013 04/18/2013 ioversol (OPTIRAY 320) iv solution 68% 100 mL (COMPLETED) 1923 (Given - Provider: Quinton Ochoa) 100 mL, Intravenous, ONCE, e 04/18/13 at 1915, For 1 dose promethazine (PHENERGAN) injection 25 mg (COMPLETED) 2017 (Given - Provider: Maureen Newsome RN) 25 mg, Intravenous, ONCE, e 04/18/13 at 2015, For 1 dose, WARNING FOR IV ADMINISTRATION: Intra-arterial inj. causes tissue necrosis. STOP administration if pain or discomfort occurs. IMPORTANT: FOR IV administration: Nurse to dilute 25 m g with 10 mL of normal saline in a syringe. Resulting concentration = 2.5 mg/ mL. Administer over 3-5 minutes (Max of 25 mg/minute).?? sodium chloride 0.9 % BOLUS 1,000 mL (COMPLETED) 1827 (New Bag - Provider: Georgia Gilliland)2023 (Stopped - Provider: Maureen Newsome, RN) Intravenous, 1,000 mL, ONCE, at 1,000 mL /hr, for 1 Hours, 04/18/13 at 1830, For 1 dose sodium chloride 0.9 % BOLUS 1,000 mL (COMPLETED) 1923 (New Bag - Provider: Quinton Ochoa)2023 (Stopped - Provider: Maureen Newsome, MARCELA) Intravenous, 1,000 mL, ONCE, 04/18/13 at 1915, For 1 dose Continuous Medication Order 04/16/2013 04/17/2013 04/18/2013 0.9 % sodium chloride IV solution (CANCELED) 2023 (New Bag - Provider: Maureen Newsome, MARCELA)2104 (Stopped - Provider: Maureen Newsome, RN) at 125 mL/hr, Intravenous, CONTINUOUS, Administer after the bolu s. PRN Medication Order 04/16/2013 04/17/2013 04/18/2013 HYDROmorphone (PF) (DILAUDID) injection 0.5 mg (COMPLETED) 1830 (Given - Provider: Georgia Gilliland)1924 (Given - Provider: Maureen Newsome, RN)2017 (Given - Provider: Maureen Newsome, RN) 0.5 mg, Intravenous, EVERY 15 MIN PRN, 3 doses, Starting 04/18/13 at 1817, Until Discontinued, moderate to severe pain ondansetron (ZOFRAN) injection 4 mg (CANCELED) 1827 (Given - Provider: Georgia Gilliland)1929 (Given - Provider: Maureen Newsome, MARCELA) 4 mg, Intravenous, EVERY 30 MIN PRN, deejay sea, vomiting, for 2 Minutes, Starting 04/18/13 at 1816, For 3 doses, May repeat in 30 minutes as needed, up to 3 doses. documented in this encounter Care Teams Globe Cleaner Relationship Specialty Start Date End Date Yusef Lino MD PCP - General Family Practice 03/24/13 08/28/17 [facility] [address] [place] [address] documented as of this encounter
--- OUTSIDE RECORDS SUMMARY | 2022-08-10 10:57 | XMS_ITS | Encounter Summary ---
:1965 Author Organization [facility] Address [address] [place] [address]. [place] [address] Care Team Providers Name Role Phone Unavailable Primary Care Provider Unavailable Encounter Details Date Type Department Care Team Description 10/07/2008 Emergency room [facility] Jus Barnett , [facility] Results MD EMERGENCY PHYSIC JEFFREY KINGSLEY [address] [place] [address] (Wo rk) Social History Tobacco Use Types [...] documented as of this encounter Progress Notes Jus Barnett - 10/15/2008 5:[address] TECHNICIAN FINAL CHIEF COMPLAINT: Epigastric abdominal pain with back pain. HISTORY OF PRESENT ILLNESS: A 43-year-old female reports she has had 2 previous episodes of pancreatitis. She has had her gallbladder taken out, had a second episode which was both felt secondary to stone. She does not drink alcohol. Reports that on she developed epigastric abdominal pain radiating around to the back which felt exactly like her previous episodes of pancreatitis. No substernal chest pain, no shortness of breath. Has had vomiting and diarrhea to go along with this. Has been on pain medication but has not been controlling her pain. Says she has 8/10 pain currently, better when she lies flat, puts heat on her back. Nothing makes the pain any worse except for eating. It is exactly like her previous episodes, not exertionally related. No diaphoresis. She reports she was seen at [facility] on . They diagnosed her with pancreatitis with a lipase of 500. MEDICATIONS: Vicodin, Zofran. ALLERGIES: No known drug allergies. PAST MEDICAL HISTORY: Pancreatitis x2, cholecystectomy, hysterectomy. SOCIAL HISTORY: The patient does not smoke or drink. REVIEW OF SYSTEMS: Five-point review of systems negative except as in the HPI. PHYSICAL EXAMINATION: GENERAL: The patient is a pleasant, well-developed 43-year-old female who is no respiratory distress. VITAL SIGNS: Temperature 98.9, blood pressure 126/72, pulse 88, respirations 16, satting 94% on room air. HEENT: Normocephalic, atraumatic. Sclerae are nonicteric, mucous membranes are moist. NECK: Supple, no signs of JVD. HEART: Regular. LUNGS: Clear. ABDOMEN: Soft. There is epigastric tenderness which recreates her pain. No flank tenderness. EXTREMITIES: Lower extremities without swelling x4. SKIN: Cool, pink and dry. NEUROLOGIC: Intact. PSYCHIATRIC: Appropriate. LABORATORY AND DIAGNOSTICS: An EKG was performed due to the patient's epigastric location which demonstrates normal sinus rhythm, normal axis, no ST elevation. Ventricular rate of 76, TN interval 154,QRS duration 82 and a QTC of 436. Flat and upright was performed of her abdomen that demonstrated nosigns of obstruction; however, there is stool throughout the colon consistent with constipation. White count is normal, no signs of anemia. LFTs are within normal limits except for a mildly elevated ALT at 52, lipase is normal at 110. UA demonstrates no overt signs of infection. There are 2 white blood cells, negative leukocyte esterase. EMERGENCY DEPARTMENT COURSE: The patient reports mild epigastric tenderness. I considered the possibility of ACS. Her EKG is normal with the pain. The pain has been constant since . Says it isexactly like her previous episodes of pancreatitis. She had been checked at [place] and had a lipase of 500, is currently now normal. Now I think the symptoms are related to constipation. What relieves it is atypical, heat and laying back. The patient shows no signs of diaphoresis, nausea. Her risk factor for ACS is low, FRENCH score is low. The patient had IV access obtained, placed on a monitor.I treated with morphine for pain, hydrated with 1 liter of normal saline over 1 hour. Labs were checked. Discussion was made with her about her symptoms. Told to return if symptoms worsen or change. Was referred back to her primary care physician on [place] and told to use Tylenol #3 for a lesser amount of pain control with a lesser constipating effect. PLAN: Tylenol #3 for pain. Heat, fluids, fiber and Colace for constipation. Follow up with your doctor for recheck tomorrow. Return if any problems as discussed. DIAGNOSES: 1. Epigastric abdominal pain. 2. History of pancreatitis. 3. Constipation. Electronically signed on 10/15/2008 17:40 by JUS BARNETT MD MT: [id number] Name: RICHAR CULVER Account: [id number] : 1965 Visit Date: 10/07/2008 Document: [id number] cc: Yusef Holliday MD WAY TECHNICIAN documented in this encounter Plan of Treatment Not on filedocumented as of this encounter Visit Diagnoses Not on filedocumented in this encounter
--- OUTSIDE RECORDS SUMMARY | 2022-08-10 10:57 | XMS_ITS | Encounter Summary ---
:1965 Author Organization [facility] Address [address] [place] [address] Care Team Providers Name Role Phone Unavailable Primary Care Provider Unavailable Encounter Details Date Type Department Care Team Description 06/04/2005 Historic Results INTERFACED REPORT Jayce Jovel MD [facility]THOPAEDIC [facility] [address] [place], [place] [address] (Wo rk) Social History Tobacco Use Types [...] Name Priority Date/Time Associated Diagnosis Comme nts HISTOPATHOLOGY Routine 06/04/2005 12:00 AM Result s for this CDT procedure are i n the results section . 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 COMMENT: This case is reviewed also inintradepartmental consultation with Drs. Dinesh De Leon and Inocencio Valentine. Electronically signed out by: Akbar Gross M.D. CLINICAL HISTORY: Left venous melgar. GROSS: The specimen, labeled lesion left long finger, consists of a soft, perhaps cystic structure that is 4 x 4 x 2 mm. ??There is a smooth outer surface. ??The entire specimen is embedded in one cassette. ??JKW/cornelius MICROSCOPIC: Sections show a rounded circumscribed zone of spindled cell proliferation and mostly recognizable as capillary type vasc ular proliferation with often the appearance of granulation tissu e. ??In some areas, there is fibrin clot with a few scattered fibroblasti c cells at edges, but mostly this is solid and is consistent with organ ization of a thrombus within some type of vascular structure. ??Clear ves norma wall structure is not seen, but the circumscription certainly debbie ds itself to that conclusion. ??There is occasional mitotic activity with in the proliferation, but nuclei generally are bland and do not sonali w suggestion of malignant change. ??The surrounding tissue is fibrovascul ar tissue, occasionally showing some hemosiderin deposition from previo us hemorrhage and there is one cleft-like space which appears t o be lined by some synovium near an edge. KIRA/libby 06-08-05 TESTING LAB LOCATION: [address] ??[phone] COLLECTION SITE: Client: [facility] Location: SDS (R) Specimen (Source) Anatomical Collection Method Collection Time Re ceived Time Location / / Volume Laterality 06/04/2005 06/08/2005 4:44 PM CDT Jayce Jovel MD LAB - COPATH SPECIAL DIAG OR DERABLES Performing Organization Address City/State/ZIP Code Phon e Number COPATH documented in this encounter Visit Diagnoses Not on filedocumented in this encounter
--- OUTSIDE RECORDS SUMMARY | 2022-08-10 10:57 | XMS_ITS | Encounter Summary ---
:1965 Author Organization [facility] Address [address] [place] [address] Care Team Providers Name Role Phone Unavailable Primary Care Provider Unavailable Encounter Details Date Type Department Care Team Description 06/04/2005 Operative Report Luciano Jovel MD (Category Development Analyst) [facility] [address] [place], [place] [address] (Wo rk) Social History [...] documented as of this encounter Progress Notes Jayce Jovel - 06/04/2005 11:59 PM CDT : 61 1st ASS'T: Lashonda Young 2nd ASS'T: PRE-OPERATIVE DIAGNOSIS: Venous melgar left volar long finger. POST-OPERATIVE DIAGNOSIS: Venous melgar left volar long finger. OPERATION: Excision venous melgar left long finger. ANESTHESIA: General. INDICATION FOR OPERATION: Ani Culver is a 40-year-old female with a painful soft tissue lesion on the left long finger. Significant in her past history is that she has had two venous lakes excised from her left index finger. This has similar size and characteristics to her previous lesions. It troubles her especially with cloth handler. She is being brought to the operating room at this time for excision of this lesion. OPERATIVE SUMMARY: The patient was brought to the operating room where a general anesthetic was administered. The left upper extremity was then sterilely prepped and draped. A finger tourniquet was placed. The venous melgar was palpated at the volar surface of the long finger at the PIP joint. A skin incision was made over this. Blunt dissection was then used to identify the lesion and then it was fully excised. The wound was irrigated and closed with 4-0 nylon suture. Sterile dressings and a sterile bandage were applied. The finger tourniquet was removed. Patient was then returned to recovery after wake up from general anesthesia. [id number] JAYCE JOVEL MD MT: Document: [id number] [place], [place] Name: MR#: RICHAR CULVER -79 OPERATIVE REPORT Page 2 of 1 LCN: [id number] DSC: 06/04/2005 [place], [place] Name: MR#: RICHAR CULVER -79 : Procedure Date: Account #: 1965 [id number] Doctor: JAYCE JOVEL MD OPERATIVE REPORT Page 1 of 1 documented in this encounter Plan of Treatment Not on filedocumented as of this encounter Visit Diagnoses Not on filedocumented in this encounter
--- OUTSIDE RECORDS SUMMARY | 2022-08-10 10:57 | XMS_ITS | Encounter Summary ---
:1965 Author Organization [facility] Address [address] [place] [address] Care Team Providers Name Role Phone Unavailable Primary Care Provider Unavailable Encounter Details Date Type Department Care Team Description 10/07/2008 Results Only [facility] Jus Wood MD Hospital Results EMERGENCY PHYSI EDI KINGSLEY [address] [place] [address] (Wo rk) Social History [...] Name Priority Date/Time Associated Diagnosis Comme nts X-RAY ABDOMEN Routine 10/07/2008 8:38 PM Resul ts for this COMPLETE PARCEL WRAPPER procedure are i n the results section. documented in this encounter Results X-RAY ABDOMEN 2 VW (10/07/2008 8:38 PM PARCEL WRAPPER) Anatomical Region Laterality Modality Other Specimen (Source) Anatomical Collection Method Collection Time Re ceived Time Location / / Volume Laterality 10/07/2008 8:38 PM PARCEL WRAPPER Impressions 10/08/2008 7:34 AM PARCEL WRAPPER ABDOMEN 2 - 3 VIEW* Oct 07, 2008 8:38:00 PM HISTORY: Abdominal pain. FINDINGS: Negative. Jus Wood MD GENERAL IMAGING documented in this encounter Visit Diagnoses Not on filedocumented in this encounter
--- OUTSIDE RECORDS SUMMARY | 2022-08-10 10:57 | XMS_ITS | Encounter Summary ---
:1965 Author Organization [facility] Address [address] [place] [address] Care Team Providers Name Role Phone Unavailable Primary Care Provider Unavailable Encounter Details Date Type Department Care Team Description 10/07/2008 Historic Results INTERFACED REPORT Lasha Wood MD EMERGENCY PHYSIC IAGLADYS KINGSLEY [address] [place] [address] (Wo rk) Social History [...] Procedure Name Priority Date/Time Associated Comments Diagnosis ROUTINE UA WITH STAT 10/07/2008 9:50 PM Result s for this MICROSCOPIC ARCHAEOLOGY PROFESSOR procedure are i n the results section. CBC WITH PLATELETS & STAT 10/07/2008 7:45 PM R esults for this DIFFERENTIAL ARCHAEOLOGY PROFESSOR procedure are i n the results section. LIPASE STAT 10/07/2008 7:45 PM Results f or this ARCHAEOLOGY PROFESSOR procedure are i n the results section. COMPREHENSIVE STAT 10/07/2008 7:45 PM Results for this METABOLIC PANEL ARCHAEOLOGY PROFESSOR procedure ar e in the results section. documented in this encounter Results (ABNORMAL) Routine UA with microscopic (10/07/2008 9:50 PM ARCHAEOLOGY PROFESSOR) [facility] bright box Method Time Signature Source Midstream MISYS Urine Color Urine Yellow MISYS Appearance Urine Slightly MISYS Cloudy Glucose Urine Negative NEG mg/dL MISYS Bilirubin Urine Negative NEG MISYS Ketones Urine Negative NEG mg/dL MISYS Specific [place]earing 1.032 1.003 - MISYS Urine 1.035 Blood Urine Negative NEG MISYS pH Urine 5.5 5.0 - 7.0 MISYS pH Protein Albumin 10 (A) NEG mg/dL MISYS Urine Urobilinogen Normal 0.0 - 2.0 MISYS mg/dL mg/dL Nitrite Urine Negative NEG MISYS Leukocyte Negative NEG MISYS Esterase Urine WBC Urine 2 0 - 2 MISYS /HPF RBC Urine 2 0 - 2 MISYS /HPF Squamous 22 (H) 0 - 1 MISYS Epithelial /HPF /HPF Urine Bacteria Urine Few (A) NEG /HPF MISYS Mucous Urine Present (A) NEG /LPF MISYS Specimen Anatomical Collection Method Collection Time Receive d Time (Source) Location / / Volume Laterality 10/07/2008 9:50 PM 8 8:04 ARCHAEOLOGY PROFESSOR PM ARCHAEOLOGY PROFESSOR Jus Wood MD LAB - URINE ORDERABLES Performing Organization Address City/State/ZIP Code Phon e Number MISYS (ABNORMAL) CBC with platelets differential (10/07/2008 7:45 PM ARCHAEOLOGY PROFESSOR) [facility] bright box Method Time Signature MCV 94 78 - 100 MIS[facility] fl MCH 32.6 26.5 - MISYS 33.0 pg MCHC 34.8 31.5 - MISYS 36.5 g/dL RDW 13.1 10.0 - MISYS 15.0 % WBC 4.5 4.0 - MISYS 11.0 10e9/L RBC Count 4.57 3.8 - 5.2 MISYS 10e12/L Hemoglobin 14.9 11.7 - MISYS 15.7 g/dL Hematocrit 42.8 35.0 - MISYS 47.0 % % Neutrophils 26 (L) 40 - 75 % MISYS % Lymphocytes 48 20 - 48 % MISYS % Monocytes 11 0 - 12 % MISYS % Eosinophils 13 (H) 0 - 6 % MISYS % Basophils 2 0 - 2 % MISYS Platelet Count 285 150 - 450 MIS[facility] 10e9/L Absolute 1.2 (L) 1.6 - 8.3 MISYS Neutrophil 10e9/L Absolute 2.2 0.8 - 5.3 MISYS Lymphocytes 10e9/L Absolute 0.5 0.0 - 1.3 MISYS Monocytes 10e9/L Absolute 0.6 0.0 - 0.7 MISYS Eosinophils 10e9/L Absolute 0.1 0.0 - 0.2 MISYS Basophils 10e9/L Diff Method Automated MISYS Method Specimen Anatomical Collection Method Collection Time Receive d Time (Source) Location / / Volume Laterality 10/07/2008 7:45 PM 8 8:04 ARCHAEOLOGY PROFESSOR PM ARCHAEOLOGY PROFESSOR Jus Wood MD LAB - BLOOD ORDERABLES Performing Organization Address City/State/ZIP Code Phon e Number MISYS (ABNORMAL) Comprehensive metabolic panel (10/07/2008 7:45 PM ARCHAEOLOGY PROFESSOR) P athologist Signature Sodium 142 133 - 144 MISYS mmol/L Potassium 3.7 3.4 - 5.3 MISYS mmol/L Chloride 106 94 - 109 MISYS mmol/L Carbon Dioxide 26 20 - 32 MISYS mmol/L Glucose 86 60 - 99 MISYS mg/dL Urea Nitrogen 16 5 - 24 MISYS mg/dL Creatinine 0.75 0.52 - 1.04 MISYS mg/dL Comment: New IDMS-traceable calibration beginning 02/23/08 GFR Estimate 84 >60 mL/min/1.7m2 MISYS GFR Estimate If Black >90 >60 mL/min/1.7m2 M ISYS Calcium 8.8 8.5 - 10.4 mg/dL MISYS AST 39 0 - 45 U/L MISYS Protein Total 7.6 6.8 - 8.8 g/dL MISYS Comment: As of 08, reference range reflects plasma specimen type. Anion Gap 10 6 - 17 mmol/L MISYS Albumin 4.2 3.9 - 5.1 g/dL MISYS ALT 52 (H) 0 - 50 U/L MISYS Alkaline Phosphatase 121 40 - 150 U/L MISYS Bilirubin Total 0.4 0.2 - 1.3 mg/dL MISYS Specimen Anatomical Collection Method Collection Time Receive d Time (Source) Location / / Volume Laterality 10/07/2008 7:45 PM 8 8:04 ARCHAEOLOGY PROFESSOR PM ARCHAEOLOGY PROFESSOR Jus Wood MD LAB - BLOOD ORDERABLES Performing Organization Address City/[facility] Phon e Number MISYS Lipase (10/07/2008 7:45 PM ARCHAEOLOGY PROFESSOR) P athologist Signature Lipase 110 20 - 250 U/L MISYS Specimen Anatomical Collection Method Collection Time Receive d Time (Source) Location / / Volume Laterality 10/07/2008 7:45 PM 8 8:04 ARCHAEOLOGY PROFESSOR PM ARCHAEOLOGY PROFESSOR Jus Wood MD LAB - BLOOD ORDERABLES Performing Organization Address City/[facility] Phon e Number MISYS documented in this encounter Visit Diagnoses Not on filedocumented in this encounter
[2022-08-10 11:03] LABS: Hemoglobin* 15.2 gm/dL (12.0-16.0)
== END 2022-08-10 12:08 | disposition home or self-care (01) ==
PROVIDERS: Emergency Provider Family Medicine
DX: N20.0 Calculus of kidney (principal); N39.0 Urinary tract infection, site not specified; I10 Essential (primary) hypertension; Z87.442 Personal history of urinary calculi
CPT/HCPCS: 36415; 74176; 80048; 81001; 85018; 86140; 87086; 96360; 96361; 96372; 96374; 96375; 99284; J1885; J2405; J7030

== ENCOUNTER 2023-05-12 09:27 | Emergency (ER) | payer OTHER, SELFPAY ==
[2023-05-12] VITALS (16 sets, daily range): BP systolic 137–166; BP diastolic 68–89; PULSE 85–110; RESP 18; TEMP 36.7; O2SAT 92–100; BMI 36.8
--- NOTE | 2023-05-12 09:49 | ED_ITS ---
HPI - Abdominal Pain General Time Seen by Provider: 09:49 Date Seen: 05/12/23 Chief Complaint: Abdominal Pain Stated Complaint: Abdominal pain Time Seen by Provider: 05/12/23 09:49 Source: patient and RN notes reviewed Mode of arrival: ambulatory Limitations: no limitations History of Present Illness HPI narrative: Patient is a very pleasant 58-year-old female with history of recurrent kidney stones as well as remote history of pancreatitis who comes to the emergency room for evaluation of abdominal pain. Patient notes that she has had abdominal pain coming and going over the past month and now feels quite bloated. This is associated with nausea but no vomiting diarrhea or constipation. Patient notes no unusual weight loss. Over the past few days it has become much worse. She describes the majority of her pain being in her epigastrium but now has pain in her lower abdomen more in the right lower quadrant. This is associated with some mild dysuria but no evidence of hematuria. Patient denies any recent fever. She has had a history of a cholecystectomy. She still retains her appendix. She does occasionally use alcohol and does not smoke. She denies any recent falls or trauma. Pain does not seem to be movement eating or time of day. She has been having difficulty sleeping at night because of the discomfort. Related Data Home Medications Medication Instructions Recorded Confirmed levothyroxine 200 mcg tablet 200 mcg PO DAILY 08/10/22 05/12/23 (Euthyrox) tizanidine 6 mg capsule 6 mg PO PRN muscle spasticity 08/10/22 01/06/23 trazodone 100 mg tablet 100 mg PO BID 08/10/22 05/12/23 metoprolol succinate 100 mg 50 mg PO DAILY 01/06/23 05/12/23 tablet,extended release 24 hr Allergies Allergy/AdvReac Type Severity Reaction Status Date / Time No Known Drug Allergies Allergy Verified 05/12/23 09:40 Review of Systems Status of ROS Reports: 10 or more systems reviewed and unremarkable except as noted in History and below Const Denies: fever, chills or fatigue ENMT Denies: throat swelling Cardio Reports: shortness of breath with exertion (With the pain overnight); Denies: chest pain, swelling of feet/ankles or lightheadedness Resp Reports: shortness of breath (With the pain overnight); Denies: cough GI Reports: abdominal pain, nausea and bloating; Denies: vomiting, diarrhea, constipation or blood in stool Reports: painful urination Musculo Denies: back pain or extremity pain Endo Denies: fatigue Allergy/Immuno Denies: throat swelling PFSH PFS Medical History Shingles ?B02.9 - Zoster without complications (ICD-10) Pancreatitis ?K85.90 - Acute pancreatitis without necrosis or infection, unspecified (ICD- 10) Hypertension ?I10 - Essential (primary) hypertension (ICD-10) Migraines ?G43.909 - Migraine, unspecified, not intractable, without status migrainosus (ICD-10) Kidney stone ?N20.0 - Calculus of kidney (ICD-10) Surgical History History of cholecystectomy ?Z90.49 - Acquired absence of other specified parts of digestive tract (ICD- 10) H/O: hysterectomy ?Z90.710 - Acquired absence of both cervix and uterus (ICD-10) Social History Smoking Status: Never smoker Do you use any of these nicotine containing products: None Second hand tobacco smoke exposure: No How often do you have a drink containing alcohol: 2-3 times a week How many standard drinks containing alcohol do you have on a typical day: 1 or 2 How often do you have six or more drinks on one occasion: Never AUDIT-C Alcohol total score: 3 Non-prescribed substance use: denies use service: No Exam Narrative: Exam Narrative: Alert and oriented. No acute distress. EOM is full. Oral cavity with moist mucous membranes. Mentation normal. Neck is supple without lymphadenopathy. Heart with regular rate and rhythm at this time. Lungs are clear bilaterally. Abdomen shows mild tenderness in the epigastrium. Also increase tenderness in the right lower quadrant without rebound. No masses are palpated. Lower extremities without edema. Const: Vital Signs, click to edit/add: Vital Signs - 24 hr 05/12/23 09:35 05/12/23 11:24 05/12/23 11:25 Temperature 98.1 F Pulse Rate 93 94 Pulse Rate [Right Pulse Oximeter] 110 H Respiratory Rate 18 Blood Pressure 144/87 H Blood Pressure [Ri ght Upper Arm] 137/89 Pulse Oximetry 97 96 97 Oxygen Delivery Me thod Room Air 05/12/23 11:30 05/12/23 11:32 05/12/23 11:41 Temperature Pulse Rate 91 92 Pulse Rate [Right Pulse Oximeter] 89 Respiratory Rate 18 Blood Pressure 166/80 H Blood Pressure [Ri ght Upper Arm] 166/80 H Pulse Oximetry 96 98 97 Oxygen Delivery Me thod Room Air 05/12/23 11:45 05/12/23 12:00 05/12/23 12:02 Temperature Pulse Rate 92 91 87 Pulse Rate [Right Pulse Oximeter] Respiratory Rate Blood Pressure 157/84 H Blood Pressure [Ri ght Upper Arm] Pulse Oximetry 100 94 93 Oxygen Delivery Me thod 05/12/23 12:15 05/12/23 12:30 05/12/23 12:32 Temperature Pulse Rate 85 90 92 Pulse Rate [Right Pulse Oximeter] Respiratory Rate Blood Pressure 142/68 H Blood Pressure [Ri ght Upper Arm] Pulse Oximetry 93 95 94 Oxygen Delivery Me thod 05/12/23 12:45 05/12/23 13:00 05/12/23 13:02 Temperature Pulse Rate 97 97 94 Pulse Rate [Right Pulse Oximeter] Respiratory Rate Blood Pressure 147/85 H Blood Pressure [Ri ght Upper Arm] Pulse Oximetry 94 94 92 Oxygen Delivery Me thod Documenting provider has reviewed patient's vital signs: yes Course Course Hospital Course: Differential diagnosis includes but is not limited to colitis, diverticulitis, pancreatitis, urinary tract infection, ureteral colic, pyelonephritis. Will place IV and give Toradol 15 mg, Zofran 4 mg 1 L of normal saline. Will also do labs to include CBC, comprehensive panel, CRP, urinalysis, lipase. At this point given patient's history of pancreatitis multiple kidney stones I do feel that we will need to do a CT. Patient is in agreement with this plan. Reevaluation(s) Reevaluation #1: Patient was initially given Toradol but request stronger pain medication. Patient will be given morphine 4 mg IV. Vital Signs Vital signs: Initial Vital Signs Temperature 98.1 F 05/12/23 09:35 Temperature Source Temporal Artery Scan 05/12/23 09:35 Pulse Rate 110 H 05/12/23 09:35 Respiratory Rate 18 05/12/23 09:35 Blood Pressure 137/89 05/12/23 09:35 Blood Pressure Mean 105 05/12/23 09:35 Blood Pressure Position Sitting 05/12/23 09:35 Pulse Oximetry 97 05/12/23 09:35 Oxygen Delivery Method Room Air 05/12/23 09:35 Vital Signs Temperature 98.1 F 05/12/23 09:35 Pulse Rate 110 H 05/12/23 09:35 Respiratory Rate 18 05/12/23 09:35 Blood Pressure 137/89 05/12/23 09:35 Pulse Oximetry 97 05/12/23 09:35 Oxygen Delivery Method Room Air 05/12/23 09:35 Temperature 98.1 F 05/12/23 09:35 Pulse Rate 94 05/12/23 13:02 Respiratory Rate 18 05/12/23 11:41 Blood Pressure 147/85 H 05/12/23 13:02 Pulse Oximetry 92 05/12/23 13:02 Oxygen Delivery Method Room Air 05/12/23 11:41 MDM - Abdominal Pain MDM Narrative Medical decision making narrative: 1. Abdominal pain-patient has a history of chronic pancreatitis but negative for elevation of lipase, liver function tests and CT reassuring at this time. 2. Urinary tract infection-patient has an area of inflammation of the right ureter as well as 5-10 wbc's of the urine. Given her level of discomfort and CT findings this certainly could have been a stone that has now passed as she seems to be feeling better. Will treat with antibiotic and await the urine culture. We will use 1 g IV Rocephin and then patient will be discharged home on Macrobid 100 mg p.o. b.i.d. x7 days while awaiting the official culture. At this point there is no evidence of retained stone. 3. Disposition-home at this time. Return for worsening symptoms especially vomiting, increasing pain and as needed. Medical Records Attestation: I reviewed the patient's medical records. Lab Data Attestation: I reviewed the patient's lab results. Labs: Lab Results 05/12/23 05/12/23 05/12/23 Range/Units 09:47 10:03 10:20 WBC 11.39 H (4.50-11.00) K/uL RBC 4.87 (4.00-5.20) m/uL Hgb 16.1 H (12.0-16.0) gm/dL Hct 45.9 (33.0-51.0) % MCV 94 (80-100) fL MCH 33 (26-34) pg MCHC 35 (32-36) gm/dL RDW Coeff of Nixon 12.4 (11.5-15.5) % Plt Count 364 (140-440) K/uL Neut % (Auto) 53.0 (42.0-72.0) % Lymph % (Auto) 35.0 (20-44) % Isabella % (Auto) 9.1 (0.0-11.0) % Eos % (Auto) 1.8 (0.0-7.0) % Baso % (Auto) 0.3 (0.0-3.0) % Neut # (Auto) 6.00 (1.7-7.0) K/uL Lymph # (Auto) 4.00 H (0.90-2.90) K/uL Isabella # (Auto) 1.00 H (0.00-0.90) K/UL Eos # (Auto) 0.20 (0.00-0.50) K/uL Baso # (Auto) 0.00 (0.00-0.30) K/uL Abs Immat Gran (auto) 0.10 (0.00-0.30) K/uL Imm/Tot Granulo (auto) 0.8 % Sodium 137 (135-149) mmol/L Potassium 3.5 L (3.6-5.1) mmol/L Chloride 100 (96-114) mmol/L Carbon Dioxide 27 (20-32) mmol/L BUN 19 (7-30) mg/dL Creatinine 0.7 (0.5-1.5) mg/dL Estimated Creat Clear 83.11 Estimated GFR 99 ml/min Glucose 122 H (60-115) mg/dL Calcium 9.3 (8.4-10.6) mg/dL Total Bilirubin 0.6 (0.1-1.5) mg/dL AST 26 (12-35) U/L ALT 31 (4-35) U/L Alkaline Phosphatase 88 (40-150) U/L C-Reactive Protein < 0.5 L (0.5-1.0) mg/dL Total Protein 7.5 (6.0-8.3) g/dL Albumin 4.5 (3.3-5.0) g/dL Lipase 25 (23-300) U/L Urine Color Yellow (Yellow) Urine Appearance Clear (Clear) Urine pH 6.5 (5.0-8.5) Ur Specific [place] 1.020 (1.000-1.030) Urine Protein Negative (Negative) Urine Glucose (UA) Negative (Negative) Urine Ketones Negative (Negative) Urine Blood Negative (Negative) Urine Nitrite Negative (Negative) Urine Bilirubin Negative (Negative) Urine Urobilinogen 0.2 (0.2-1.0) Ur Leukocyte Esterase Negative (Negative) Urine RBC 0-2 (0-2) Urine WBC 5-10 A (0-5) Ur Squamous Epith Cells None (None-Few) Urine Bacteria None (None) Urine Mucus Few A (None) Imaging Data CT scan - abdomen: Attestation: I have reviewed the pertinent imaging results. Radiologist's impression: ower chest: Unremarkable. Liver: Diffusely decreased density of the liver without focal intrahepatic lesion. Gallbladder and bile ducts: Status post cholecystectomy. Spleen: Unremarkable. Normal in size without mass. Pancreas: Moderate pancreatic atrophy. Adrenal glands: Unremarkable. No nodules. Kidneys: Nephrolithiasis with right renal cyst. No evidence of hydronephrosis, however there is some urothelial thickening on the right (see series 4, image 68). Vasculature: Unremarkable. GI tract: The stomach is unremarkable. Fat containing supraumbilical ventral hernia. No dilated loops of large or small intestine. Appendix unremarkable. Minimal colonic diverticulosis. Pelvis: Status post hysterectomy. Bones: Old inferior endplate fracture of L2, similar to prior. IMPRESSION: 1. Nephrolithiasis without evidence of hydronephrosis or ureteral stone. However, note is made of some urothelial thickening on the right. This is nonspecific but could be seen in chronic vesicoureteral reflux, recent stone passage as well as infection/ureteritis. 2. Minimal colonic diverticulosis without evidence of diverticulitis. 3. Mild hepatic steatosis Discharge Plan Discharge Clinical Impression: UTI (urinary tract infection) Qualifiers: Urinary tract infection type: site unspecified Hematuria presence: without hematuria Qualified Code(s): N39.0 - Urinary tract infection, site not specified Abdominal pain Qualifiers: Abdominal location: right lower quadrant Qualified Code(s): R10.31 - Right lower quadrant pain Patient Disposition: Home, Self-Care Condition: Improved Additional Instructions: Start Macrobid for urinary tract infection. Recommend pushing fluids. Returns/seek medical attention for worsening symptoms, especially fever, vomiting, chills and as needed. Avoid alcohol at this time. For ongoing symptoms of abdominal pain, consider GI specialist. Prescriptions: No Action tizanidine 6 mg capsule 6 mg PO PRN (Reason: muscle spasticity) Patient Comments: TAKE 1 CAPSULE (6 MG) BY MOUTH EVERY 8 HOURS IF NEEDED FOR MUSCLE SPASM. trazodone 100 mg tablet 100 mg PO BID Patient Comments: TAKE 1 TABLET BY MOUTH TWICE A DAY levothyroxine [Euthyrox] 200 mcg tablet 200 mcg PO DAILY metoprolol succinate 100 mg tablet extended release 24 hr 50 mg PO DAILY Patient Comments: TAKE 1 TABLET BY MOUTH EVERY DAY Follow Up/Referrals: Provider,Not a Local [Primary Care Provider] - Stand Alone Forms: [employer] Info Instructions
--- NOTE | 2023-05-12 10:03 | CRLHL7_ITS ---
For Patients: As a result of the Century Cures Act, medical imaging exams and procedure reports are released immediately into your electronic medical record. You may view this report before your referring provider. If you have questions, please contact your health care provider. INDICATION: Epigastric and right lower quadrant pain. Nausea. TECHNIQUE: Axial images were obtained from the diaphragm to the pubic symphysis. Reformats were obtained in the coronal and sagittal plane. IV Contrast: None Oral Contrast: None COMPARISON: Abdomen and pelvis CT 08/10/2022 FINDINGS: Lower chest: Unremarkable. Liver: Diffusely decreased density of the liver without focal intrahepatic lesion. Gallbladder and bile ducts: Status post cholecystectomy. Spleen: Unremarkable. Normal in size without mass. Pancreas: Moderate pancreatic atrophy. Adrenal glands: Unremarkable. No nodules. Kidneys: Nephrolithiasis with right renal cyst. No evidence of hydronephrosis, however there is some urothelial thickening on the right (see series 4, image 68). Vasculature: Unremarkable. GI tract: The stomach is unremarkable. Fat containing supraumbilical ventral hernia. No dilated loops of large or small intestine. Appendix unremarkable. Minimal colonic diverticulosis. Pelvis: Status post hysterectomy. Bones: Old inferior endplate fracture of L2, similar to prior. IMPRESSION: 1. Nephrolithiasis without evidence of hydronephrosis or ureteral stone. However, note is made of some urothelial thickening on the right. This is nonspecific but could be seen in chronic vesicoureteral reflux, recent stone passage as well as infection/ureteritis. 2. Minimal colonic diverticulosis without evidence of diverticulitis. 3. Mild hepatic steatosis. Please note that all CT scans at this facility use dose modulation, iterative reconstruction, and/or weight-based dosing when appropriate to reduce radiation dose to as low as reasonably achievable. Dictated by Perry Spears MD @ 05/12/2023 12:11:29 PM (Electronically Signed)
[2023-05-12 10:06] LABS: Mucus Urine Few; RBC Urine 0-2 (0-2)
[2023-05-12] MEDS: 0.9 % SODIUM CHLORIDE 1000 ml 1,000 ML IV (10:24)
[2023-05-12] MEDS: KETOROLAC 15 MG/ML inj IVP (10:28)
[2023-05-12] MEDS: ONDANSETRON 2 MG/ML inj 4 MG IVP (10:30)
[2023-05-12 10:38] LABS: Basophils Percent Auto 0.3 % (0.0-3.0); Eosinophils Percent Auto 1.8 % (0.0-7.0); Hematocrit 45.9 % (33.0-51.0); Hemoglobin* 16.1 gm/dL (12.0-16.0); Immature Granulocytes Pct Auto 0.8 %; Mean Corpuscular HGB Conc 35 gm/dL (32-36); Mean Corpuscular Hemoglobin 33 pg (26-34); Mean Corpuscular Volume 94 fL (80-100); Monocytes Percent Auto 9.1 % (0.0-11.0); Platelet Count* 364 K/uL (140-440); RDW Coefficient of Variation % 12.4 % (11.5-15.5); Red Blood Count 4.87 m/uL (4.00-5.20); White Blood Count* 11.39 K/uL (4.50-11.00)
[2023-05-12 10:39] LABS: Appearance Urine Clear (Clear); Bilirubin Urine Negative (Negative); Blood Urine Negative (Negative); Color Urine Yellow (Yellow); Glucose Urine Negative (Negative); Ketones Urine Negative (Negative); Leukocyte Esterase Urine Negative (Negative); Nitrite Urine Negative (Negative); Protein Urine Negative (Negative); Urobilinogen Urine 0.2 (0.2-1.0); pH Urine 6.5 (5.0-8.5)
[2023-05-12 10:46] LABS: Slide Review Reflex No
[2023-05-12 10:54] LABS: Albumin* 4.5 g/dL (3.3-5.0); Chloride* 100 mmol/L (96-114); Sodium* 137 mmol/L (135-149)
[2023-05-12 10:55] LABS: Potassium* 3.5 mmol/L (3.6-5.1)
[2023-05-12 10:57] LABS: Aspartate Amino Transferase* 26 U/L (12-35); Bilirubin Total* 0.6 mg/dL (0.1-1.5); Carbon Dioxide* 27 mmol/L (20-32); Creatinine* 0.7 mg/dL (0.5-1.5); Est. Creatinine Clearance* 83.11; Estimated Glomerular Filt Rate 99 ml/min
[2023-05-12 10:58] LABS: Alanine Aminotransferase* 31 U/L (4-35); Alkaline Phosphatase* 88 U/L (40-150); Blood Urea Nitrogen* 19 mg/dL (7-30); Calcium* 9.3 mg/dL (8.4-10.6); Glucose* 122 mg/dL (60-115); Lipase* 25 U/L (23-300); Total Protein* 7.5 g/dL (6.0-8.3)
[2023-05-12 11:01] LABS: C Reactive Protein* < 0.5 mg/dL (0.5-1.0)
[2023-05-12] MEDS: MORPHINE 4 MG/ML INJ IVP (11:45)
[2023-05-12] MEDS: cefTRIAXone 1 GM in 0.9 % SODIUM CHLORIDE Mini-bag 100 ML IVPB (13:24)
== END 2023-05-12 14:07 | disposition home or self-care (01) ==
PROVIDERS: Emergency Provider Family Medicine
DX: N39.0 Urinary tract infection, site not specified (principal)
CPT/HCPCS: 36415; 74177; 80053; 81001; 81003; 81015; 83690; 85025; 86140; 87086; 96365; 96375; 99284; 99285; J0696; J1885; J2270; J2405; J7030; Q9967

== ENCOUNTER 2023-08-23 09:26 | Emergency (ER) | payer OTHER, SELFPAY ==
[2023-08-23 09:30] VITALS: BP 123/80; PULSE 117; RESP 18; TEMP 36.3; O2SAT 97; BMI 37.6
--- NOTE | 2023-08-23 10:37 | ED.GENADULT ---
HPI - General Adult General Chief complaint: Post Op Complication Stated complaint: Post op bleeding History of Present Illness HPI narrative: This 58-year-old female comes in with right flank pain radiating more into her right lower abdomen and groin. She has history of kidney stones and did have lithotripsy procedure about 10 days ago. Since then she has had a stent in place. She comes here because she is having severe pain that is not adequately controlled. She has been taking ibuprofen and Flomax. She does not describe any symptoms of infection in the urine but does have some hematuria with small clots at times. She has also straining her urine according to instructions from urologist and is noting some very small stones that she has a hard time picking up because they are so small. She thinks that the stent is the primary cause of her discomfort. Related Data Home Medications Medication Instructions Recorded Confirmed levothyroxine 200 mcg tablet 200 mcg PO DAILY 08/10/22 08/23/23 (Euthyrox) tizanidine 6 mg capsule 6 mg PO PRN muscle spasticity 08/10/22 01/06/23 trazodone 100 mg tablet 100 mg PO BID 08/10/22 08/23/23 metoprolol succinate 100 mg 50 mg PO DAILY 01/06/23 08/23/23 tablet,extended release 24 hr Previous Rx's Medication Instructions Recorded hydrocodone 5 mg-acetaminophen 325 1 tab PO Q4-6H PRN pain #20 tabs 08/23/23 mg tablet ketorolac 10 mg tablet 10 mg PO Q8H 5 days #15 tabs 08/23/23 Allergies Allergy/AdvReac Type Severity Reaction Status Date / Time No Known Drug Allergies Allergy Verified 05/12/23 09:40 Review of Systems Status of ROS: Reports: 10 or more systems reviewed and unremarkable except as noted in History and below Narrative: Constitutional: No fevers, no weight gain or loss. Eyes: No discharge. No vision changes. HENT: No congestion, no sore throat, no ear pain. Cardiovascular: No chest pain, no palpitations. Respiratory: No shortness of breath, no wheezes, no cough. Gastrointestinal: No vomiting, no diarrhea. Right lower abdomen pain radiating into the groin. Genitourinary: No dysuria. Occasional hematuria with small clots. Musculoskeletal: Normal range of motion. Skin: No rashes, no pruritis. Neurological: No dizziness, weakness, sensory change, speech change. Endo/Heme/Allergies: No bruising or bleeding. No polydipsia. Pysch: no suicidality, no anxiety, no insomnia. All other systems reviewed and are negative. [facility] Medical History Shingles ?B02.9 - Zoster without complications (ICD-10) Pancreatitis ?K85.90 - Acute pancreatitis without necrosis or infection, unspecified (ICD-10) Hypertension ?I10 - Essential (primary) hypertension (ICD-10) Migraines ?G43.909 - Migraine, unspecified, not intractable, without status migrainosus (ICD-10) Kidney stone ?N20.0 - Calculus of kidney (ICD-10) Surgical History History of cholecystectomy ?Z90.49 - Acquired absence of other specified parts of digestive tract (ICD-10) H/O: hysterectomy ?Z90.710 - Acquired absence of both cervix and uterus (ICD-10) Social History Smoking Status: Never smoker Do you use any of these nicotine containing products: None Second hand tobacco smoke exposure: No How often do you have a drink containing alcohol: 2-3 times a week How many standard drinks containing alcohol do you have on a typical day: 1 or 2 How often do you have six or more drinks on one occasion: Never AUDIT-C Alcohol total score: 3 Non-prescribed substance use: denies use service: No Exam Narrative: Exam Narrative: Constitutional: Well-developed, well-nourished, no acute distress. HEENT: Normocephalic, atraumatic. Neck: Normal range of motion. Nontender. Supple. Heart: Regular. No murmurs. Normal rate. Intact distal pulses. Lungs: Clear to auscultation. No chest discomfort. No wheezes, rhonchi, or rales. Abdomen: Normal bowel sounds. The patient reports pain in the right lower quadrant. Pain is not reproduced when palpating throughout her abdomen. No rebound tenderness. Genitalia: Deferred. Back: No midline tenderness. Normal range of motion. Extremities: Normal range of motion. No injury. Skin: Intact. No rash. Warm. No erythema or pallor. Neurologic: No altered sensation. No weakness. Alert and oriented. Psychiatric: No suicidality. No anxiety or depression. No insomnia. Nursing notes and vitals signs are reviewed. Const: Vital Signs, click to edit/add: Vital Signs - 24 hr 08/23/23 09:30 Temperature 97.4 F L Pulse Rate [Pulse Oximeter] 117 H Respiratory Rate 18 Blood Pressure [Ri ght Upper Arm] 123/80 Pulse Oximetry 97 Oxygen Delivery Me thod Room Air Course Vital Signs Vital signs: Initial Vital Signs Temperature 97.4 F L 08/23/23 09:30 Temperature Source Temporal Artery Scan 08/23/23 09:30 Pulse Rate 117 H 08/23/23 09:30 Respiratory Rate 18 08/23/23 09:30 Blood Pressure 123/80 08/23/23 09:30 Blood Pressure Mean 94 08/23/23 09:30 Blood Pressure Position Supine 08/23/23 09:30 Pulse Oximetry 97 08/23/23 09:30 Oxygen Delivery Method Room Air 08/23/23 09:30 Vital Signs Temperature 97.4 F L 08/23/23 09:30 Pulse Rate 117 H 08/23/23 09:30 Respiratory Rate 18 08/23/23 09:30 Blood Pressure 123/80 08/23/23 09:30 Pulse Oximetry 97 08/23/23 09:30 Oxygen Delivery Method Room Air 08/23/23 09:30 Temperature 97.4 F L 08/23/23 09:30 Pulse Rate 117 H 08/23/23 09:30 Respiratory Rate 18 08/23/23 09:30 Blood Pressure 123/80 08/23/23 09:30 Pulse Oximetry 97 08/23/23 09:30 Oxygen Delivery Method Room Air 08/23/23 09:30 Medical Decision Making MDM Narrative Medical decision making narrative: This patient is having renal colic related to recent lithotripsy and stent placement. She is not showing signs of urinary retention but does have some small clots in her urine occasionally. She is not getting adequate pain relief with [id number] medicines. I did discuss lab and imaging options that can be done today but the patient declined these in a process of shared decision making. She did receive an intramuscular injection of morphine 10 mg. I did provide prescriptions also for [place] and Toradol. I advised the patient to follow-up with her urologist. Discharge Plan Discharge Clinical Impression: Calculus, ureteral, Renal colic on right side Patient Disposition: Home, Self-Care Condition: Unchanged Additional Instructions: Take medications as needed and indicated. Follow up with Urology Clinic for ongoing management. Return if worsening. Prescriptions: New hydrocodone-acetaminophen 5-325 mg tablet 1 tab PO Q4-6H PRN (Reason: pain) Qty: 20 0RF ketorolac 10 mg tablet 10 mg PO Q8H 5 Days Qty: 15 0RF No Action tizanidine 6 mg capsule 6 mg PO PRN (Reason: muscle spasticity) Patient Comments: TAKE 1 CAPSULE (6 MG) BY MOUTH EVERY 8 HOURS IF NEEDED FOR MUSCLE SPASM. trazodone 100 mg tablet 100 mg PO BID Patient Comments: TAKE 1 TABLET BY MOUTH TWICE A DAY levothyroxine [Euthyrox] 200 mcg tablet 200 mcg PO DAILY metoprolol succinate 100 mg tablet extended release 24 hr 50 mg PO DAILY Patient Comments: TAKE 1 TABLET BY MOUTH EVERY DAY Follow Up/Referrals: Provider,Not a Local [Primary Care Provider] - Stand Alone Forms: [employer] Info Instructions
[2023-08-23 10:44] VITALS: BP 146/80; PULSE 94; RESP 20; O2SAT 94
[2023-08-23] MEDS: MORPHINE 10 MG/ML inj IM (10:46)
[2023-08-23 11:14] VITALS: PULSE 85; RESP 20; O2SAT 94
== END 2023-08-23 11:15 | disposition home or self-care (01) ==
LOC: ED 10:49
PROVIDERS: Emergency Provider Emergency Medicine Emergency Medical Services
DX: N20.2 Calculus of kidney with calculus of ureter (principal)
CPT/HCPCS: 96372; 99284; J2270

== ENCOUNTER 2024-06-15 07:37 | Emergency (ER) | payer OTHER, SELFPAY ==
[2024-06-15 07:45] VITALS: BP 144/87; PULSE 92; RESP 18; TEMP 36.7; O2SAT 95; BMI 36.8
--- NOTE | 2024-06-15 07:45 | ED.GENADULT ---
HPI - General Adult General Date Seen: 06/15/24 Chief complaint: Flank Pain Stated complaint: Abd pain, low back pain RT side, covid + 1mo ago Time Seen by Provider: 06/15/24 07:45 History of Present Illness HPI narrative: 59-year-old female who is positive for coronavirus about 1 month ago, with a history of kidney stones (in the ER in July 2023 for kidney stones and pain related to an indwelling stent after lithotripsy.), history of pancreatitis, history of hypertension, history of migraine headaches, previous cholecystectomy and hysterectomy. She presents to the ER today for symptoms including a couple of weeks of UTI symptoms (lower abdominal pain, urinary frequency) several days of low back pain and right flank pain (although it is difficult for her to exactly determine when her flank pain started, because she does deal with some longstanding pains in her back), hematuria that began overnight, with nausea that began overnight and into this morning. She had 1 episode of vomiting last night. She is not having fever or chills. No diarrhea. She is not feeling weak or dizzy. The no other symptoms of systemic you with. She did have COVID about a month ago but has fully recovered. She recalls that she has had multiple kidney stones over the years. She did have a lithotripsy with stent about a year ago by her urologist at [facility], in [place]. Related Data Home Medications ?Medication ?Instructions ?Recorded ?Confirmed levothyroxine 200 mcg tablet 200 mcg PO DAILY 08/10/22 08/23/23 (Euthyrox) tizanidine 6 mg capsule 6 mg PO PRN muscle spasticity 08/10/22 01/06/23 trazodone 100 mg tablet 100 mg PO BID 08/10/22 08/23/23 metoprolol succinate 100 mg 50 mg PO DAILY 01/06/23 08/23/23 tablet,extended release 24 hr Previous Rx's ?Medication ?Instructions ?Recorded hydrocodone 5 mg-acetaminophen 325 1 tab PO Q4-6H PRN pain #20 tabs 08/23/23 mg tablet ketorolac 10 mg tablet 10 mg PO Q8H 5 days #15 tabs 08/23/23 hydrocodone 5 mg-acetaminophen 325 1 tab PO Q4-6H PRN pain #10 tabs 06/15/24 mg tablet ondansetron 4 mg disintegrating 4 mg PO Q8H PRN nausea and 06/15/24 tablet vomiting #10 tabs Allergies Allergy/AdvReac Type Severity Reaction Status Date / Time No Known Drug Allergies Allergy Verified 05/12/23 09:40 [facility] Medical History Shingles ?B02.9 - Zoster without complications (ICD-10) Pancreatitis ?K85.90 - Acute pancreatitis without necrosis or infection, unspecified (ICD-10) Hypertension ?I10 - Essential (primary) hypertension (ICD-10) Migraines ?G43.909 - Migraine, unspecified, not intractable, without status migrainosus (ICD-10) Kidney stone ?N20.0 - Calculus of kidney (ICD-10) Surgical History History of cholecystectomy ?Z90.49 - Acquired absence of other specified parts of digestive tract (ICD-10) H/O: hysterectomy ?Z90.710 - Acquired absence of both cervix and uterus (ICD-10) Social History Smoking Status: Never smoker Do you use any of these nicotine containing products: None Second hand tobacco smoke exposure: No How often do you have a drink containing alcohol: 2-3 times a week How many standard drinks containing alcohol do you have on a typical day: 1 or 2 How often do you have six or more drinks on one occasion: Never AUDIT-C Alcohol total score: 3 Non-prescribed substance use: denies use service: No Exam Narrative: Exam Narrative: Constitutional: Appears well-developed and well-nourished. Alert. Conversant. Non toxic. HENT: Head: Atraumatic. Nose: Nose normal. Mouth/Throat: Oral mucosa is clear and moist. no trismus. Pharynx normal. Eyes: Conjunctivae normal. EOM normal. Pupils equal, round, and reactive to light. No scleral icterus. Neck: Normal range of motion. Neck supple. No tracheal deviation present. Cardiovascular: Normal rate, regular rhythm. No gallop. No friction rub. No murmur heard. Pulmonary/Chest: Effort normal. No stridor. No respiratory distress. No wheezes. No rales. No rhonchi . No ribcage tenderness. Abdominal: Soft. Bowel sounds normal. No distension. No mass. Right CVA and right lower quadrant, suprapubic> left lower quadrant tenderness. No rebound. No guarding. Musculoskeletal: RUE: Normal range of motion. No tenderness. No deformity LUE: Normal range of motion. No tenderness. No deformity RLE: Normal range of motion. No edema. No tenderness. No deformity LLE: Normal range of motion. No edema. No tenderness. No deformity Neurological: Alert and oriented to person, place, and time. Normal strength. CN II-VII intact. No sensory deficit. GCS eye subscore is 4. GCS verbal subscore is 5. GCS motor subscore is 6. Normal coordination Skin: Skin is warm and dry. No rash noted. No pallor. Normal capillary refill. Psychiatric: Normal mood. Normal affect. Const: Vital Signs, click to edit/add: Vital Signs - 24 hr 06/15/24 07:45 Temperature 98.0 F Pulse Rate [Right Pulse Oximeter] 92 Respiratory Rate 18 Blood Pressure [Ri t Upper Arm] 144/87 H Pulse Oximetry 95 Oxygen Delivery Me thod Room Air Course Course ED Course: Recheck-patient reports some improvement after meds. Still sitting up in bed. Overall feels comfortable for discharge. Vital Signs Vital signs: Initial Vital Signs Temperature 98.0 F 06/15/24 07:45 Temperature Source Temporal Artery Scan 06/15/24 07:45 Pulse Rate 92 06/15/24 07:45 Pulse Rhythm Regular 06/15/24 07:45 Pulse Strength 3+ Normal 06/15/24 07:45 Respiratory Rate 18 06/15/24 07:45 Blood Pressure 144/87 H 06/15/24 07:45 Blood Pressure Mean 106 H 06/15/24 07:45 Blood Pressure Position Sitting 06/15/24 07:45 Pulse Oximetry 95 06/15/24 07:45 Oxygen Delivery Method Room Air 06/15/24 07:45 Vital Signs Temperature 98.0 F 06/15/24 07:45 Pulse Rate 92 06/15/24 07:45 Respiratory Rate 18 06/15/24 07:45 Blood Pressure 144/87 H 06/15/24 07:45 Pulse Oximetry 95 06/15/24 07:45 Oxygen Delivery Method Room Air 06/15/24 07:45 Temperature 98.0 F 06/15/24 07:45 Pulse Rate 92 06/15/24 07:45 Respiratory Rate 18 06/15/24 07:45 Blood Pressure 144/87 H 06/15/24 07:45 Pulse Oximetry 95 06/15/24 07:45 Oxygen Delivery Method Room Air 06/15/24 07:45 Medical Decision Making MDM Narrative Medical decision making narrative: Presented to the Emergency Department with right flank and bilateral lower quadrant abdominal pain. She has also had urinary symptoms for the past couple of weeks, with nausea overnight with 1 episode of vomiting. She is concerned that she is probably passing another kidney stone as she has a history of multiple previous stones. She is also worried about probable UTI. We were expecting to find probably signs of urinary tract infection with urinalysis but there is no hematuria, pyuria, bacteriuria, or nitrate on her urinalysis this morning. CT scan shows multiple small intrarenal stones but no ureteral stones or hydronephrosis. Patient recalls that she has known she has had multiple small stones within her kidneys for years. She says she has had a previous procedure by her urologist where he expected to be able to retrieve many of these small stones from her renal pelvis, but apparently when he got into the pelvis, the stones were not actually visible (? Possibly buried within the urothelium of the pelvis? ) and therefore not removed during that procedure. CT scan today read demonstrates multiple small stones within the kidney but no obstructing stones. The differential diagnosis of her abdominal pain includes: Appendicitis, Bowel Obstruction, Ulcer, Ischemia, Diverticulitis, Pancreatitis, UTI, kidney stone, Enteritis/Colitis, amongst many other etiologies. She is status post hysterectomy and cholecystectomy. Laboratory testing does not reveal a cause for the patient's pain. She has a distant history of pancreatitis but not is not really having much epigastric pain. Lipase normal. No signs of pancreatitis on CT. CT imaging does not give any explanation for her pain. No evidence for appendicitis, colitis, or other pathology. The exact etiology of the abdominal pain is not clear at this time. No life threatening cause or need for emergent surgery or hospital admission is detected today. The patient was advised that if symptoms do not completely resolve within another 24 hours re-evaluation with primary care or return to the ED is indicated. The patient also understands that if they worsen, they should return to the ER right away. I discussed the uncertainty about the diagnosis and answered the patient's questions. Abdominal pain return precautions discussed. Prescription for [place] and Zofran. Opiate precautions reviewed Lab Data Labs: Lab Results 06/15/24 06/15/24 Range/Units 08:21 08:35 WBC 6.48 (4.50-11.00) K/uL RBC 4.46 (4.00-5.20) m/uL Hgb 14.6 (12.0-16.0) gm/dL Hct 42.5 (33.0-51.0) % MCV 95 (80-100) fL MCH 33 (26-34) pg MCHC 34 (32-36) gm/dL RDW Coeff of [place] 13.0 (11.5-15.5) % Plt Count 292 (140-440) K/uL Neut % (Auto) 38.8 L (42.0-72.0) % Lymph % (Auto) 44.1 H (20-44) % [place] % (Auto) 9.0 (0.0-11.0) % Eos % (Auto) 6.5 (0.0-7.0) % Baso % (Auto) 1.4 (0.0-3.0) % Neut # (Auto) 2.50 (1.7-7.0) K/uL Lymph # (Auto) 2.90 (0.90-2.90) K/uL [place] # (Auto) 0.60 (0.00-0.90) K/UL Eos # (Auto) 0.42 (0.00-0.50) K/uL Baso # (Auto) 0.09 (0.00-0.30) K/uL Abs Immat Gran (auto) 0.01 (0.00-0.30) K/uL Imm/Tot Granulo (auto) 0.2 % Sodium 138 (135-149) mmol/L Potassium 4.0 (3.6-5.1) mmol/L Chloride 107 (96-114) mmol/L Carbon Dioxide 25 (20-32) mmol/L Anion Gap 6 L (7-15) mEq/L BUN 15 (7-30) mg/dL Creatinine 0.6 (0.5-1.5) mg/dL Estimated Creat Clear 57.45 Estimated GFR 102 ml/min Glucose 95 (60-115) mg/dL Calcium 9.3 (8.4-10.6) mg/dL Total Bilirubin 0.6 (0.1-1.5) mg/dL AST 29 (12-35) U/L ALT 27 (4-35) U/L Alkaline Phosphatase 99 (40-150) U/L Total Protein 7.0 (6.0-8.3) g/dL Albumin 4.4 (3.3-5.0) g/dL Lipase 37 (23-300) U/L Urine Color Yellow (Yellow) Urine Appearance Clear (Clear) Urine pH 6.5 (5.0-8.5) Ur Specific [place] 1.025 (1.000-1.030) Urine Protein Negative (Negative) Urine Glucose (UA) Negative (Negative) Urine Ketones Negative (Negative) Urine Blood Negative (Negative) Urine Nitrite Negative (Negative) Urine Bilirubin Negative (Negative) Urine Urobilinogen 0.2 (0.2-1.0) Ur Leukocyte Esterase Negative (Negative) Urine RBC 0-2 (0-2) Urine WBC 0-2 (0-5) Ur Squamous Epith Cells None (None-Few) Urine Bacteria None (None) Urine Mucus Moderate A (None) Imaging Data CT scan - abdomen: Attestation: I have reviewed the pertinent imaging results. Radiologist's impression: ABDOMEN Liver: Normal hepatic attenuation. No suspicious focal hepatic lesion. No intrahepatic biliary ductal dilatation. Gallbladder: Cholecystectomy. Normal common duct caliber. Pancreas: Normal pancreatic attenuation. No focal lesion. Normal duct caliber. No peripancreatic inflammatory changes. Spleen: Normal splenic attenuation. No suspicious focal lesion. Adrenal Glands: Symmetrical adrenal glands. No focal lesion of significance. Kidneys: Numerous, too many to index, bilateral nonobstructing intrarenal collecting system nephroliths. No dilatation of the right upper urinary tract or obstructing ureteral stone. There is a phlebolith posterior to the distal right ureter just proximal to the right ureterovesical junction, unchanged. No suspicious focal lesion. Simple right renal cortical cysts, demonstrated to better advantage on the prior contrast-enhanced study of 05/12/2023. Gastrointestinal tract: Normal caliber, attenuation and wall thickness of the gastrointestinal tract. No inflammatory changes. Normal mesentery. Normal appendix. Vascular: Normal outer wall to outer wall abdominal aortic caliber. Patency and luminal caliber of the abdominopelvic arterial and venous vasculature cannot be assessed on this noncontrast study. Additional findings: No incidental adenopathy. No significant ascites, free fluid or pneumoperitoneum. PELVIS No bladder lesion is identified. Hysterectomy. No abnormal free fluid. No incidental adenopathy. SKELETON AND BODY WALL No acute or suspicious incidental findings. Chronic wedge compression deformity of L2 with greater than 50 percent loss of anterior vertebral body height. LOWER THORAX Partially included lower thoracic wall, lungs, pleural spaces and mediastinum are otherwise without significant incidental findings. IMPRESSION: Nondilated right upper urinary tract. No right ureteral stone. Bilateral nephrolithiasis. No other imaging findings to explain right flank and lower abdominal pain and hematuria. Discharge Plan Discharge Clinical Impression: Abdominal pain, Acute right flank pain, Nausea Patient Disposition: Home, Self-Care Condition: Stable Instructions: Acute Nausea and Vomiting (DC), Acute Abdominal Pain (ED) Additional Instructions: As we discussed, the results of your workup look reassuring. However, we do not have a clear diagnosis for your symptoms at this time. If you are not getting better, please recheck with your doctor or the ER tomorrow. If you have any worsening symptoms or any concerns, especially fever, worsening or uncontrolled pain, uncontrolled vomiting, bloody vomit or bloody/black stool, please come back to the ER right away to be rechecked. And try to control her pain with [id number] meds such as Tylenol or ibuprofen. If he needs stronger pain killers you can use the prescription ([place]). Use precautions with [place] because it is an opiate and can cause drowsiness, constipation, dizziness. It can be addictive. Use Zofran if needed for nausea. Prescriptions: New ondansetron 4 mg tablet,disintegrating 4 mg PO Q8H PRN (Reason: nausea and vomiting) Qty: 10 0RF hydrocodone-acetaminophen 5-325 mg tablet 1 tab PO Q4-6H PRN (Reason: pain) Qty: 10 0RF No Action tizanidine 6 mg capsule 6 mg PO PRN (Reason: muscle spasticity) Patient Comments: TAKE 1 CAPSULE (6 MG) BY MOUTH EVERY 8 HOURS IF NEEDED FOR MUSCLE SPASM. trazodone 100 mg tablet 100 mg PO BID Patient Comments: TAKE 1 TABLET BY MOUTH TWICE A DAY levothyroxine [Euthyrox] 200 mcg tablet 200 mcg PO DAILY metoprolol succinate 100 mg tablet extended release 24 hr 50 mg PO DAILY Patient Comments: TAKE 1 TABLET BY MOUTH EVERY DAY hydrocodone-acetaminophen 5-325 mg tablet 1 tab PO Q4-6H PRN (Reason: pain) Qty: 20 0RF ketorolac 10 mg tablet 10 mg PO Q8H 5 Days Qty: 15 0RF Follow Up/Referrals: Provider,Not a Local [Primary Care Provider] - Stand Alone Forms: Amitive Info Instructions
[2024-06-15] MEDS: KETOROLAC 15 MG/ML inj IVP (08:10)
[2024-06-15] MEDS: ONDANSETRON 2 MG/ML inj 4 MG IVP (08:10)
--- NOTE | 2024-06-15 08:25 | CRLHL7_ITS ---
For Patients: As a result of the 21st Century Cures Act, medical imaging exams and procedure reports are released immediately into your electronic medical record. You may view this report before your referring provider. If you have questions, please contact your health care provider. INDICATION: Hematuria. Right flank pain. COMPARISON: 05/12/2023 TECHNIQUE: CT of the abdomen and pelvis without intravenous contrast. Please note that all CT scans at this facility use dose modulation, iterative reconstruction, and/or weight-based dosing when appropriate to reduce radiation dose to as low as reasonably achievable. FINDINGS: The study is performed without intravenous contrast. This limits the sensitivity of the exam for the detection bowel pathology, focal lesions of the abdominopelvic viscera and vascular pathology including significant vascular stenosis, occlusion and dissection. ABDOMEN Liver: Normal hepatic attenuation. No suspicious focal hepatic lesion. No intrahepatic biliary ductal dilatation. Gallbladder: Cholecystectomy. Normal common duct caliber. Pancreas: Normal pancreatic attenuation. No focal lesion. Normal duct caliber. No peripancreatic inflammatory changes. Spleen: Normal splenic attenuation. No suspicious focal lesion. Adrenal Glands: Symmetrical adrenal glands. No focal lesion of significance. Kidneys: Numerous, too many to index, bilateral nonobstructing intrarenal collecting system nephroliths. No dilatation of the right upper urinary tract or obstructing ureteral stone. There is a phlebolith posterior to the distal right ureter just proximal to the right ureterovesical junction, unchanged. No suspicious focal lesion. Simple right renal cortical cysts, demonstrated to better advantage on the prior contrast-enhanced study of 05/12/2023. Gastrointestinal tract: Normal caliber, attenuation and wall thickness of the gastrointestinal tract. No inflammatory changes. Normal mesentery. Normal appendix. Vascular: Normal outer wall to outer wall abdominal aortic caliber. Patency and luminal caliber of the abdominopelvic arterial and venous vasculature cannot be assessed on this noncontrast study. Additional findings: No incidental adenopathy. No significant ascites, free fluid or pneumoperitoneum. PELVIS No bladder lesion is identified. Hysterectomy. No abnormal free fluid. No incidental adenopathy. SKELETON AND BODY WALL No acute or suspicious incidental findings. Chronic wedge compression deformity of L2 with greater than 50 percent loss of anterior vertebral body height. LOWER THORAX Partially included lower thoracic wall, lungs, pleural spaces and mediastinum are otherwise without significant incidental findings. IMPRESSION: Nondilated right upper urinary tract. No right ureteral stone. Bilateral nephrolithiasis. No other imaging findings to explain right flank and lower abdominal pain and hematuria. Please note that all CT scans at this facility use dose modulation, iterative reconstruction, and/or weight-based dosing when appropriate to reduce radiation dose to as low as reasonably achievable. Dictated by Sheldon Mcgrath MD @ 06/15/2024 8:58:19 AM (Electronically Signed)
[2024-06-15 08:28] LABS: Appearance Urine Clear (Clear); Bilirubin Urine Negative (Negative); Blood Urine Negative (Negative); Color Urine Yellow (Yellow); Glucose Urine Negative (Negative); Ketones Urine Negative (Negative); Leukocyte Esterase Urine Negative (Negative); Nitrite Urine Negative (Negative); Protein Urine Negative (Negative); Specific Gravity Urine 1.025 (1.000-1.030); Urobilinogen Urine 0.2 (0.2-1.0); pH Urine 6.5 (5.0-8.5)
[2024-06-15 08:37] LABS: Mucus Urine Moderate; RBC Urine 0-2 (0-2); WBC Urine 0-2 (0-5)
[2024-06-15 08:51] LABS: Basophils Absolute Auto 0.09 K/uL (0.00-0.30); Basophils Percent Auto 1.4 % (0.0-3.0); Eosinophils Absolute Auto 0.42 K/uL (0.00-0.50); Eosinophils Percent Auto 6.5 % (0.0-7.0); Hematocrit 42.5 % (33.0-51.0); Hemoglobin* 14.6 gm/dL (12.0-16.0); Immature Granulocytes Abs Auto 0.01 K/uL (0.00-0.30); Immature Granulocytes Pct Auto 0.2 %; Lymphocytes Percent Auto 44.1 % (20-44); Mean Corpuscular HGB Conc 34 gm/dL (32-36); Mean Corpuscular Hemoglobin 33 pg (26-34); Mean Corpuscular Volume 95 fL (80-100); Neutrophils Percent Auto 38.8 % (42.0-72.0); Platelet Count* 292 K/uL (140-440); Red Blood Count 4.46 m/uL (4.00-5.20); White Blood Count* 6.48 K/uL (4.50-11.00)
[2024-06-15 08:53] LABS: Slide Review Reflex No
[2024-06-15 09:01] LABS: Albumin* 4.4 g/dL (3.3-5.0); Chloride* 107 mmol/L (96-114)
[2024-06-15 09:02] LABS: Sodium* 138 mmol/L (135-149)
[2024-06-15 09:04] LABS: Anion Gap 6 mEq/L (7-15); Aspartate Amino Transferase* 29 U/L (12-35); Bilirubin Total* 0.6 mg/dL (0.1-1.5); Carbon Dioxide* 25 mmol/L (20-32); Creatinine* 0.6 mg/dL (0.5-1.5); Est. Creatinine Clearance* 57.45; Estimated Glomerular Filt Rate 102 ml/min
[2024-06-15 09:05] LABS: Alanine Aminotransferase* 27 U/L (4-35); Alkaline Phosphatase* 99 U/L (40-150); Blood Urea Nitrogen* 15 mg/dL (7-30); Calcium* 9.3 mg/dL (8.4-10.6); Glucose* 95 mg/dL (60-115)
[2024-06-15 09:37] LABS: Lipase* 37 U/L (23-300)
== END 2024-06-15 10:14 | disposition home or self-care (01) ==
PROVIDERS: Emergency Provider Emergency Medicine
DX: R10.9 Unspecified abdominal pain (principal); R11.0 Nausea
CPT/HCPCS: 36415; 74176; 80053; 81001; 83690; 85025; 96374; 96375; 99283; 99284; J1885; J2405